=== PATIENT | female | born 1960 | race Caucasian/White ===

== ENCOUNTER 2017-07-25 17:18 | Emergency (ER) | payer MEDICAID, MEDICARE, OTHER ==
[2017-07-25] MEDS ORDERED: Ondansetron 4 MG/2 ML SDV IVPUSH ONE (18:28)
[2017-07-25] MEDS ORDERED: Morphine 10 MG/ML Syringe IVPUSH ONE ×2 (18:29→19:36)
[2017-07-25] MEDS ORDERED: Sodium Chloride 0.9% 1,000 ML IV SCH (19:00)
--- NOTE | 2017-07-25 20:30 | EDM.PDOC ---
ED HPI GENERAL MEDICAL PROBLEM - General Chief Complaint: Abdominal Pain Stated Complaint: PANCREATIS ATTACK Time Seen by Provider: 07/25/17 18:12 Source of Information: Reports: Patient History Limitations: Reports: No Limitations - History of Present Illness INITIAL COMMENTS - FREE TEXT/NARRATIVE: This lady comes in with symptoms of recurrent pancreatitis. She says she has chronic pancreatitis but she had a sore throat a few days ago couldn't swallow and was coughing and so forth but now since I believe last night her upper abdominal pain has gotten a lot worse. She's not taking any kind of pain medications. She says she is certain this is pancreatitis could she's had many times in the past. Abdomen Pain Score (Numeric/FACES): 9 - Related Data Allergies Allergy/AdvReac Type Severity Reaction Status Date / Time acetaminophen Allergy Severe Hives Verified 07/25/17 17:36 [From Darvocet-N 100] codeine Allergy Severe Hives Verified 07/25/17 17:36 Iodinated Contrast- Oral and Allergy Severe Cannot Verified 07/25/17 17:36 IV Dye Remember [Iodinated Contrast Media - IV Dye] iodine Allergy Severe Hives Verified 07/25/17 17:36 propoxyphene napsylate Allergy Severe Hives Verified 07/25/17 17:36 [From Darvocet-N 100] Sulfa (Sulfonamide Allergy Severe Hives Verified 07/25/17 17:36 Antibiotics) sulfamethoxazole Allergy Severe Rash Verified 07/25/17 17:36 [From Bactrim] tramadol Allergy Severe Anxiety Verified 07/25/17 17:36 trimethoprim [From Bactrim] Allergy Severe Rash Verified 07/25/17 17:36 Home Meds: Home Meds Amitriptyline [Elavil] 150 mg PO BEDTIME PRN 06/30/13 [History] Metoprolol Tartrate [Lopressor] 25 mg PO BID 06/30/13 [History] cycloSPORINE [Restasis] 1 each EYEBOTH BID 12/30/14 [History] Potassium Chloride [Klor-Con M20] 20 meq PO DAILY #30 tab.er 11/15/16 [Rx] metFORMIN [Glucophage] 500 mg PO BIDMEALS #60 tablet 11/15/16 [Rx] Past Medical History Cardiovascular History: Reports: Hypertension Gastrointestinal History: Reports: Cholelithiasis, 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: Endocrine/Metabolic History: Reports: Diabetes, Type II - Past Surgical History HEENT Surgical History: Reports: Tonsillectomy GI Surgical History: Reports: Appendectomy, Cholecystectomy, ERCP Female Surgical History: Reports: Section Musculoskeletal Surgical History: Reports: Arthroscopic Knee, Hip Replacement Social & Family History - Tobacco Use Smoking Status *Q: Current Every Day Smoker Years of Tobacco use: 40 Packs/Tins Daily: 0.3 Used Tobacco, but Quit: No Second Hand Smoke Exposure: No - Caffeine Use Caffeine Use: Reports: None - Alcohol Use Days Per Week of Alcohol Use: 0 Number of Drinks Per Day: 1 Total Drinks Per Week: 0 - Recreational Drug Use Recreational Drug Use: No ED ROS GENERAL - Review of Systems Review Of Systems: ROS reveals no pertinent complaints other than HPI. ED EXAM, GI/ABD - Physical Exam Exam: See Below Exam Limited By: No Limitations General Appearance: Alert, WD/WN, Moderate Distress Eyes: Bilateral: Normal Appearance Throat/Mouth: Normal Oropharynx Neck: Supple Respiratory/Chest: Lungs Clear Cardiovascular: Normal Peripheral Pulses, Regular Rate, Rhythm GI/Abdominal Exam: Soft, Other (Upper abdominal tenderness) Back Exam: Normal Inspection Extremities: Normal Inspection Neurological: Alert, Oriented Psychiatric: Normal Affect Skin Exam: Warm, Dry Course - Vital Signs Last Recorded V/S: Last Vital Signs Temp 37.1 C 07/25/17 17:33 Pulse 109 H 07/25/17 19:53 Resp 18 07/25/17 19:53 BP 176/110 H 07/25/17 18:32 Pulse Ox 97 07/25/17 19:53 - Orders/Labs/Meds Orders: Active Orders 24 hr Category Date Time Status Sodium Chloride 0.9% [Normal Saline] 1,000 ml Med 07/25/17 19:00 Active IV ASDIRECTED Medication Orders Sodium Chloride (Normal Saline) 1,000 mls @ 999 mls/hr IV ASDIRECTED GILLIAN Last Admin: 07/25/17 18:54 Dose: 999 mls/hr Labs: Laboratory Tests 07/25/17 07/25/17 07/25/17 Range/Units 18:48 18:48 18:48 WBC 6.4 (4.5-11.0) K/uL RBC 3.93 (3.30-5.50) M/uL Hgb 13.7 D (12.0-15.0) g/dL Hct 38.9 (36.0-48.0) % MCV 99 H (80-98) fL MCH 35 H (27-31) pg MCHC 35 (32-36) % Plt Count 218 (150-400) K/uL Neut % (Auto) 58 (36-66) % Lymph % (Auto) 25 (24-44) % [place] % (Auto) 16 H (2-6) % Eos % (Auto) 0 L (2-4) % Baso % (Auto) 1 (0-1) % Sodium 135 L (140-148) mmol/L Potassium 3.7 (3.6-5.2) mmol/L Chloride 97 L (100-108) mmol/L Carbon Dioxide 28 (21-32) mmol/L Anion Gap 13.7 (5.0-14.0) mmol/L BUN 13 (7-18) mg/dL Creatinine 0.8 (0.6-1.0) mg/dL Est Cr Clr Drug Dosing 70.66 mL/min Estimated GFR (MDRD) > 60 (>60) Glucose 128 H (74-106) mg/dL Calcium 9.8 (8.5-10.1) mg/dL Total Bilirubin 1.3 H (0.2-1.0) mg/dL AST 108 H D (15-37) U/L ALT 82 H (12-78) U/L Alkaline Phosphatase 99 (46-116) U/L Total Protein 7.1 (6.4-8.2) g/dL Albumin 3.8 (3.4-5.0) g/dL Globulin 3.3 (2.3-3.5) g/dL Albumin/Globulin Ratio 1.2 (1.2-2.2) Amylase 120 H (25-115) U/L Lipase 1064 H (73-393) U/L Meds: Medications Generic Name Dose Route Start Last Admin Trade Name Freq PRN Reason Stop Dose Admin Sodium Chloride 1,000 mls @ 999 mls/hr 07/25/17 19:00 07/25/17 18:54 Normal Saline IV 999 mls/hr ASDIRECTED GILLIAN Administration Discontinued Medications Generic Name Dose Route Start Last Admin Trade Name Freq PRN Reason Stop Dose Admin Morphine Sulfate 7 mg 07/25/17 18:29 07/25/17 18:57 Morphine IVPUSH 07/25/17 18:30 7 mg ONETIME ONE Administration Morphine Sulfate 8 mg 07/25/17 19:36 07/25/17 19:47 Morphine IVPUSH 07/25/17 19:37 8 mg ONETIME ONE Administration Ondansetron HCl 4 mg 07/25/17 18:28 07/25/17 18:55 Zofran IVPUSH 07/25/17 18:29 4 mg ONETIME ONE Administration - Re-Assessments/Exams Free Text/Narrative Re-Assessment/Exam: 07/25/17 20:27 This patient received morphine 7 mg Zofran 4 mg IV they gave partial relief of the pain she also received 1 L IV normal saline over one hour. She was rechecked she was still having pain since she was given 8 mg of morphine and that gave fairly good pain relief. She is able to drink water so she feels like she can go home Departure - Departure Time of Disposition: 20:27 Disposition: Home, Self-Care 01 Condition: Fair Clinical Impression: 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, acute - Discharge Information Referrals: Obi Alexandre MD [Primary Care Provider] - Additional Instructions: Strict clear liquid diet for the next 2 days then begin advancing to solid foods very gradually. Start with things like rice bananas and so forth. Clear liquids should not contain any thing like broth which might have protein in it which would stimulate the pancreas Take the pain medicine Percocet 5/325, #20 tablets, one or 2 every 4 hours as needed for pain. This medication can cause sedation and impair driving. It's also habit-forming. See your Dr. rodarte - My Orders Last 24 Hours: My Active Orders 07/25/17 19:00 Sodium Chloride 0.9% [Normal Saline] 1,000 ml IV ASDIRECTED - Assessment/Plan Last 24 Hours: My Active Orders 07/25/17 19:00 Sodium Chloride 0.9% [Normal Saline] 1,000 ml IV ASDIRECTED
[2017-07-25 20:55] VITALS: BP 167/65
== END 2017-07-25 21:00 | disposition home or self-care (01) ==
LOC: JP.ED 17:18
DX: K85.90 Acute pancreatitis without necrosis or infection, unspecified (principal); E11.9 Type 2 diabetes mellitus without complications; I10 Essential (primary) hypertension; Z79.84 Long term (current) use of oral hypoglycemic drugs; F17.210 Nicotine dependence, cigarettes, uncomplicated; Z79.899 Other long term (current) drug therapy; Z88.5 Allergy status to narcotic agent; Z88.2 Allergy status to sulfonamides; Z91.041 Radiographic dye allergy status; Z88.6 Allergy status to analgesic agent; Z88.8 Allergy status to other drugs, medicaments and biological substances
CPT/HCPCS: 36415; 80053; 82150; 83690; 85025; 96361; 96374; 96375; 96376; 99284; J1642; J2270; J2405; J7040

== ENCOUNTER 2017-08-04 18:38 | Emergency (ER) | payer MEDICAID, MEDICARE, OTHER ==
[2017-08-04] MEDS ORDERED: Ondansetron 4 MG/2 ML SDV IVPUSH ONE (19:45)
[2017-08-04] MEDS ORDERED: Lactated Ringers 1,000 ML IV SCH (19:45)
[2017-08-04] MEDS ORDERED: HYDROmorphone 1 MG/ML Syringe IVPUSH ONE (19:45)
--- NOTE | 2017-08-04 19:49 | EDM.PDOC ---
ED HPI GENERAL MEDICAL PROBLEM - General Chief Complaint: Abdominal Pain Stated Complaint: CHRONIC PANCREATITIS Time Seen by Provider: 08/04/17 19:06 Source of Information: Reports: Patient, Old Records, RN Notes Reviewed History Limitations: Reports: No Limitations - History of Present Illness INITIAL COMMENTS - FREE TEXT/NARRATIVE: 57-year-old female presents emergency department day complaint of abdominal pain she has a known history of chronic pancreatitis however she has been fairly stable over the last year she had a flare up of her pancreatitis about one week ago she relates the trigger might be related to an upper respiratory tract infection. The other thing of concern is she has had weight gain over the last 9 months was 104 pounds now she's up to 154 pounds denies any fevers shortness of breath or chest pain epigastric Pain Score (Numeric/FACES): 9 - Related Data Allergies Allergy/AdvReac Type Severity Reaction Status Date / Time acetaminophen Allergy Severe Hives Verified 08/04/17 19:27 [From Darvocet-N 100] codeine Allergy Severe Hives Verified 08/04/17 19:27 Iodinated Contrast- Oral and Allergy Severe Cannot Verified 08/04/17 19:27 IV Dye Remember [Iodinated Contrast Media - IV Dye] iodine Allergy Severe Hives Verified 08/04/17 19:27 propoxyphene napsylate Allergy Severe Hives Verified 08/04/17 19:27 [From Darvocet-N 100] Sulfa (Sulfonamide Allergy Severe Hives Verified 08/04/17 19:27 Antibiotics) sulfamethoxazole Allergy Severe Rash Verified 08/04/17 19:27 [From Bactrim] tramadol Allergy Severe Anxiety Verified 08/04/17 19:27 trimethoprim [From Bactrim] Allergy Severe Rash Verified 08/04/17 19:27 Home Meds: Home Meds Amitriptyline [Elavil] 150 mg PO BEDTIME PRN 06/30/13 [History] Metoprolol Tartrate [Lopressor] 25 mg PO BID 06/30/13 [History] cycloSPORINE [Restasis] 1 each EYEBOTH BID 12/30/14 [History] Potassium Chloride [Klor-Con M20] 20 meq PO DAILY #30 tab.er 11/15/16 [Rx] metFORMIN [Glucophage] 500 mg PO BIDMEALS #60 tablet 11/15/16 [Rx] Past Medical History Cardiovascular History: Reports: Hypertension Gastrointestinal History: Reports: Cholelithiasis, 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: Endocrine/Metabolic History: Reports: Diabetes, Type II - Past Surgical History HEENT Surgical History: Reports: Tonsillectomy GI Surgical History: Reports: Appendectomy, Cholecystectomy, ERCP Female Surgical History: Reports: Section Musculoskeletal Surgical History: Reports: Arthroscopic Knee, Hip Replacement Social & Family History - Tobacco Use Smoking Status *Q: Current Every Day Smoker Years of Tobacco use: 42 Packs/Tins Daily: 0.2 Used Tobacco, but Quit: No Second Hand Smoke Exposure: No - Caffeine Use Caffeine Use: Reports: None - Alcohol Use Days Per Week of Alcohol Use: 0 Number of Drinks Per Day: 1 Total Drinks Per Week: 0 - Recreational Drug Use Recreational Drug Use: No ED ROS GENERAL - Review of Systems Review Of Systems: See Below Constitutional: Reports: Weight Gain HEENT: Reports: No Symptoms Respiratory: Reports: No Symptoms Cardiovascular: Reports: No Symptoms GI/Abdominal: Reports: Abdominal Pain, Flatus, Nausea, Vomiting. Denies: Constipation, Diarrhea : Reports: No Symptoms Musculoskeletal: Reports: No Symptoms Skin: Reports: No Symptoms Neurological: Reports: No Symptoms ED EXAM, GI/ABD - Physical Exam Exam: See Below Text/Narrative:: General: Female in moderate discomfort secondary to abdominal pain, alert and oriented x3 HEENT: head is atraumatic normocephalic, eyes pupils equal round reactive to light, sclera clear no conjunctivitis appreciated. Ears tympanic membranes clear and mendez landmarks and light reflex are present bilaterally canals are clear. Nose no septal deviation, nares are clear, no blood present. Mouth mucosa is moist and pink no erythema or exudate noted in soft palate, tongue is midline uvula is midline, dentition is intact. Neck: Supple no thyromegaly no tracheal deviation. Nodes: Cervical nodes subclavicular nodes nontender no palpable lymphadenopathy noted. Lungs: clear to auscultation bilaterally with symmetrical respirations, no adventitious noise appreciated. CV: Regular rate and rhythm S1 and S2 appreciated no murmurs rubs or gallops noted. Abdomen: Soft, tender to palpation left upper quadrant, no palpable masses or organomegaly appreciated, no distention positive for guarding bowel sounds are present,. Neuro: Cranial nerves II through XII grossly intact Skin: Warm and dry, intact Extremities: No lower extremity edema appreciated, Course - Vital Signs Last Recorded V/S: Last Vital Signs Temp 97.5 F 08/04/17 21:42 Pulse 91 08/04/17 21:42 Resp 18 08/04/17 21:42 BP 164/116 H 08/04/17 21:42 Pulse Ox 94 L 08/04/17 21:42 - Orders/Labs/Meds Orders: Active Orders 24 hr Category Date Time Status EKG Documentation Completion [RC] ASDIRECTED Care 08/04/17 20:20 Active Abdomen Pelvis wo Cont [CT] Urgent Exams 08/04/17 19:44 Taken Chest 2V [CR] Urgent Exams 08/04/17 20:40 Taken Heparin Sodium/D5W [Heparin 25,000 Units in D5W 500 ML] Med 08/04/17 21:45 Ordered 25,000 units in 500 ml IV TITRATE Lactated Ringers [Ringers, Lactated] 1,000 ml Med 08/04/17 19:45 Active IV ASDIRECTED EKG 12 Lead [EK] Stat Ther 08/04/17 20:19 Ordered Medication Orders Lactated Ringer's (Ringers, Lactated) 1,000 mls @ 999 mls/hr IV ASDIRECTED GILLIAN Last Admin: 08/04/17 20:05 Dose: 999 mls/hr Heparin Sodium/Dextrose (Heparin 25,000 Units In D5w 500 Ml) 25,000 units in 500 mls @ 0 mls/hr IV TITRATE GILLIAN; 12 UNITS/KG/HR PRN Reason: Protocol Labs: Laboratory Tests 08/04/17 08/04/17 08/04/17 Range/Units 19:44 19:44 19:44 WBC 5.8 (4.5-11.0) K/uL RBC 4.12 (3.30-5.50) M/uL Hgb 14.4 (12.0-15.0) g/dL Hct 40.3 (36.0-48.0) % MCV 98 (80-98) fL MCH 35 H (27-31) pg MCHC 36 (32-36) % Plt Count 227 (150-400) K/uL Neut % (Auto) 55 (36-66) % Lymph % (Auto) 31 (24-44) % [place] % (Auto) 13 H (2-6) % Eos % (Auto) 0 L (2-4) % Baso % (Auto) 1 (0-1) % PT 10.3 (9.5-12.0) sec INR 0.96 (0.80-1.20) Sodium 136 L (140-148) mmol/L Potassium 3.5 L (3.6-5.2) mmol/L Chloride 98 L (100-108) mmol/L Carbon Dioxide 25 (21-32) mmol/L Anion Gap 16.5 H (5.0-14.0) mmol/L BUN 10 (7-18) mg/dL Creatinine 0.9 (0.6-1.0) mg/dL Est Cr Clr Drug Dosing 62.80 mL/min Estimated GFR (MDRD) > 60 (>60) Glucose 156 H (74-106) mg/dL Lactic Acid (0.4-2.0) mmol/L Calcium 9.3 (8.5-10.1) mg/dL Total Bilirubin 1.5 H (0.2-1.0) mg/dL AST 95 H (15-37) U/L ALT 44 (12-78) U/L Alkaline Phosphatase 104 (46-116) U/L Troponin I 0.124 H* (0.000-0.056) ng/mL Total Protein 7.4 (6.4-8.2) g/dL Albumin 3.9 (3.4-5.0) g/dL Globulin 3.5 (2.3-3.5) g/dL Albumin/Globulin Ratio 1.1 L (1.2-2.2) Lipase 83 (73-393) U/L Urine Color Urine Appearance Urine pH (4.5-8.0) Ur Specific [place] (1.008-1.030) Urine Protein (NEGATIVE) mg/dL Urine Glucose (UA) (NEGATIVE) mg/dL Urine Ketones (NEGATIVE) mg/dL Urine Occult Blood (NEGATIVE) Urine Nitrite (NEGATIVE) Urine Bilirubin (NEGATIVE) Urine Urobilinogen (NORMAL) mg/dL Ur Leukocyte Esterase (NEGATIVE) Urine RBC (0-5) Urine WBC (0-5) Ur Epithelial Cells Amorphous Sediment Urine Bacteria Urine Mucus Urine Opiates Screen (NEGATIVE) Ur Oxycodone Screen (NEGATIVE) Urine Methadone Screen (NEGATIVE) Ur Propoxyphene Screen (NEGATIVE) Ur Barbiturates Screen (NEGATIVE) Ur Tricyclics Screen (NEGATIVE) Ur Phencyclidine Scrn (NEGATIVE) Ur Amphetamine Screen (NEGATIVE) U Methamphetamines Scrn (NEGATIVE) Urine MDMA Screen (NEGATIVE) U Benzodiazepines Scrn (NEGATIVE) U Cocaine Metab Screen (NEGATIVE) U Marijuana (THC) Screen (NEGATIVE) 08/04/17 08/04/17 08/04/17 Range/Units 19:44 20:57 20:57 WBC (4.5-11.0) K/uL RBC (3.30-5.50) M/uL Hgb (12.0-15.0) g/dL Hct (36.0-48.0) % MCV (80-98) fL MCH (27-31) pg MCHC (32-36) % Plt Count (150-400) K/uL Neut % (Auto) (36-66) % Lymph % (Auto) (24-44) % [place] % (Auto) (2-6) % Eos % (Auto) (2-4) % Baso % (Auto) (0-1) % PT (9.5-12.0) sec INR (0.80-1.20) Sodium (140-148) mmol/L Potassium (3.6-5.2) mmol/L Chloride (100-108) mmol/L Carbon Dioxide (21-32) mmol/L Anion Gap (5.0-14.0) mmol/L BUN (7-18) mg/dL Creatinine (0.6-1.0) mg/dL Est Cr Clr Drug Dosing mL/min Estimated GFR (MDRD) (>60) Glucose (74-106) mg/dL Lactic Acid 2.6 H (0.4-2.0) mmol/L Calcium (8.5-10.1) mg/dL Total Bilirubin (0.2-1.0) mg/dL AST (15-37) U/L ALT (12-78) U/L Alkaline Phosphatase (46-116) U/L Troponin I (0.000-0.056) ng/mL Total Protein (6.4-8.2) g/dL Albumin (3.4-5.0) g/dL Globulin (2.3-3.5) g/dL Albumin/Globulin Ratio (1.2-2.2) Lipase (73-393) U/L Urine Color Yellow Urine Appearance Clear Urine pH 7.0 (4.5-8.0) Ur Specific [place] 1.010 (1.008-1.030) Urine Protein Negative (NEGATIVE) mg/dL Urine Glucose (UA) 100 H (NEGATIVE) mg/dL Urine Ketones 15 H (NEGATIVE) mg/dL Urine Occult Blood Negative (NEGATIVE) Urine Nitrite Negative (NEGATIVE) Urine Bilirubin Negative (NEGATIVE) Urine Urobilinogen Normal (NORMAL) mg/dL Ur Leukocyte Esterase Negative (NEGATIVE) Urine RBC 0-5 (0-5) Urine WBC 0-5 (0-5) Ur Epithelial Cells Moderate Amorphous Sediment Few Urine Bacteria Rare Urine Mucus Few Urine Opiates Screen Positive H (NEGATIVE) Ur Oxycodone Screen Negative (NEGATIVE) Urine Methadone Screen Negative (NEGATIVE) Ur Propoxyphene Screen Negative (NEGATIVE) Ur Barbiturates Screen Negative (NEGATIVE) Ur Tricyclics Screen Positive H (NEGATIVE) Ur Phencyclidine Scrn Negative (NEGATIVE) Ur Amphetamine Screen Negative (NEGATIVE) U Methamphetamines Scrn Negative (NEGATIVE) Urine MDMA Screen Negative (NEGATIVE) U Benzodiazepines Scrn Negative (NEGATIVE) U Cocaine Metab Screen Negative (NEGATIVE) U Marijuana (THC) Screen Negative (NEGATIVE) Meds: Medications Generic Name Dose Route Start Last Admin Trade Name Freq PRN Reason Stop Dose Admin Lactated Ringer's 1,000 mls @ 999 mls/hr 08/04/17 19:45 08/04/17 20:05 Ringers, Lactated IV 999 mls/hr ASDIRECTED GILLIAN Administration Heparin Sodium/Dextrose 25,000 units in 500 mls @ 0 mls/hr 08/04/17 21:45 Heparin 25,000 Units In D5w 500 Ml IV TITRATE GILLIAN Protocol 12 UNITS/KG/HR Discontinued Medications Generic Name Dose Route Start Last Admin Trade Name Freq PRN Reason Stop Dose Admin Aspirin 324 mg 08/04/17 20:22 08/04/17 20:28 Aspirin PO 08/04/17 20:23 324 mg ONETIME ONE Administration Clopidogrel Bisulfate 300 mg 08/04/17 21:44 Plavix PO 08/04/17 21:45 ONETIME ONE Heparin Sodium (Porcine) 4,000 units 08/04/17 21:44 08/04/17 21:51 Heparin Sodium IVPUSH 08/04/17 21:45 4,000 units ONETIME ONE Administration Hydromorphone HCl 1 mg 08/04/17 19:45 08/04/17 20:05 Dilaudid IVPUSH 08/04/17 19:46 1 mg ONETIME ONE Administration Metoprolol Tartrate 25 mg 08/04/17 21:00 08/04/17 21:14 Lopressor PO 08/04/17 21:01 25 mg ONETIME ONE Administration Morphine Sulfate 4 mg 08/04/17 20:59 08/04/17 21:14 Morphine IVPUSH 08/04/17 21:00 4 mg ONETIME ONE Administration Nitroglycerin 0.4 mg 08/04/17 21:36 08/04/17 21:40 Nitrostat SL 08/04/17 21:37 0.4 mg ONETIME ONE Administration Ondansetron HCl 4 mg 08/04/17 19:45 08/04/17 20:05 Zofran IVPUSH 08/04/17 19:46 4 mg ONETIME ONE Administration Departure - Departure Time of Disposition: 21:56 Disposition: DC/Tfer to Acute Hospital 02 Condition: Fair Clinical Impression: Elevated troponin I measurement - Discharge Information Referrals: Obi Alexandre MD [Primary Care Provider] - Forms: ED Department Discharge - My Orders Last 24 Hours: My Active Orders 08/04/17 19:44 Abdomen Pelvis wo Cont [CT] Urgent 08/04/17 19:45 Lactated Ringers [Ringers, Lactated] 1,000 ml IV ASDIRECTED 08/04/17 20:19 EKG 12 Lead [EK] Stat 08/04/17 20:20 EKG Documentation Completion [RC] ASDIRECTED 08/04/17 20:40 Chest 2V [CR] Urgent 08/04/17 21:45 Heparin Sodium/D5W [Heparin 25,000 Units in D5W 500 ML] 25,000 units in 500 ml IV TITRATE - Assessment/Plan Last 24 Hours: My Active Orders 08/04/17 19:44 Abdomen Pelvis wo Cont [CT] Urgent 08/04/17 19:45 Lactated Ringers [Ringers, Lactated] 1,000 ml IV ASDIRECTED 08/04/17 20:19 EKG 12 Lead [EK] Stat 08/04/17 20:20 EKG Documentation Completion [RC] ASDIRECTED 08/04/17 20:40 Chest 2V [CR] Urgent 08/04/17 21:45 Heparin Sodium/D5W [Heparin 25,000 Units in D5W 500 ML] 25,000 units in 500 ml IV TITRATE Plan: Assessment Acuity = acute Site and laterality = elevated troponin complicated in a patient with history of chronic pancreatitis and diabetes mellitus type 2 Etiology = unclear etiology Manifestations = epigastric pain Location of injury = Home Lab values = CBC within normal limits INR within normal limits potassium low at 3.5 consistent with hypokalemia lactic acid elevated at 2.6 consistent lactic acidosis glucose elevated at 156 consistent hyperglycemia total bilirubin elevated 1.5 consistent hyperbilirubinemia AST elevated at 95 consistent elevated liver enzymes troponin elevated at 0.124 concern for non-ST elevation myocardial infarction urinalysis reveals 100 of glucose consistent glucose urea and 15 ketones consistent ketonuria chest x-ray shows no acute process official read radiology is pending urine drug screen positive for opiates and tricyclics , CT scan of the abdomen also unremarkable EKG demonstrates a sinus rhythm there is no ST elevations or depressions is no axis deviations Q waves are present in the V1 V2 V3 T-wave inversions present in V1 and V2 V3 this is different from prior EKG in October 2016 Plan Called and discussed case with Dr. 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
[2017-08-04] MEDS ORDERED: Aspirin 81 MG Tab.Chew PO ONE (20:22)
[2017-08-04] MEDS ORDERED: Morphine 4 MG/ML Syringe IVPUSH ONE (20:59)
[2017-08-04] MEDS ORDERED: Metoprolol Tartrate 25 MG Tab PO ONE (21:00)
[2017-08-04] MEDS ORDERED: Nitroglycerin 0.4 MG Tab.SL SL ONE (21:36)
[2017-08-04] MEDS ORDERED: Clopidogrel 75 MG Tab PO ONE (21:44)
[2017-08-04] MEDS ORDERED: Heparin Sodium 5,000 Units/ML Vial IVPUSH ONE (21:44)
[2017-08-04] MEDS ORDERED: Heparin Sodium/D5W 25,000 UNITS/500 ML BAG IV SCH (21:45)
[2017-08-04] MEDS ORDERED: LORazepam 1 MG Tab PO ONE (22:00)
[2017-08-04 22:09] VITALS: BP 153/102
--- NOTE | 2017-08-06 09:46 | CR ---
Two-view chest Comparison: August 2011. There is an [id number] catheter on the right. The finding is unchanged. There are no infiltrates o r effusions. The heart and vascular structures are unremarkable. Impression: 1. Stable exam. No acute findings.
== END 2017-08-04 22:30 ==
LOC: JP.ED 18:38
DX: R79.89 Other specified abnormal findings of blood chemistry (principal); K86.1 Other chronic pancreatitis; E11.9 Type 2 diabetes mellitus without complications; I10 Essential (primary) hypertension; Z90.49 Acquired absence of other specified parts of digestive tract; Z79.84 Long term (current) use of oral hypoglycemic drugs; Z79.899 Other long term (current) drug therapy; Z88.2 Allergy status to sulfonamides; Z88.6 Allergy status to analgesic agent; Z88.1 Allergy status to other antibiotic agents; Z88.5 Allergy status to narcotic agent; Z88.8 Allergy status to other drugs, medicaments and biological substances; Z91.041 Radiographic dye allergy status
CPT/HCPCS: 36415; 71020; 74176; 80053; 80305; 81001; 83605; 83690; 84484; 85025; 85610; 93005; 93010; 96361; 96374; 96375; 99284; 99285; A9270; C1751; J1170; J1644; J2270; J2405; J7120

== ENCOUNTER 2018-07-10 04:34 | Inpatient (IN) | payer MEDICARE ==
[2018-07-10] MEDS ORDERED: Ondansetron 4 MG/2 ML SDV IVPUSH ONE (05:17)
[2018-07-10] MEDS ORDERED: HYDROmorphone 0.5 MG/0.5 ML Syringe IVPUSH ONE ×3 (05:17→08:37)
--- NOTE | 2018-07-10 05:24 | EDM.PDOC ---
ED HPI GENERAL MEDICAL PROBLEM - General Chief Complaint: Gastrointestinal Problem Stated Complaint: ABD PAIN Time Seen by Provider: 07/10/18 05:20 Source of Information: Reports: Patient History Limitations: Reports: No Limitations - History of Present Illness INITIAL COMMENTS - FREE TEXT/NARRATIVE: pt arrived with upper abdomanal pain. She did vomit twice prior to arrival. 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 ) Duration: Hour(s): Location: Reports: Abdomen Associated Symptoms: Reports: Nausea/Vomiting Treatments LAB AID: Reports: Other (see below) Other Treatments LAB AID: Unknown Abdomen Pain Score (Numeric/FACES): 8 - Related Data Allergies Allergy/AdvReac Type Severity Reaction Status Date / Time acetaminophen Allergy Severe Hives Verified 07/10/18 04:57 [From Darvocet-N 100] codeine Allergy Severe Hives Verified 07/10/18 04:57 Iodinated Contrast- Oral and Allergy Severe Cannot Verified 07/10/18 04:57 IV Dye Remember [Iodinated Contrast Media - IV Dye] iodine Allergy Severe Hives Verified 07/10/18 04:57 propoxyphene napsylate Allergy Severe Hives Verified 07/10/18 04:57 [From Darvocet-N 100] Sulfa (Sulfonamide Allergy Severe Hives Verified 07/10/18 04:57 Antibiotics) sulfamethoxazole Allergy Severe Rash Verified 07/10/18 04:57 [From Bactrim] tramadol Allergy Severe Anxiety Verified 07/10/18 04:57 trimethoprim [From Bactrim] Allergy Severe Rash Verified 07/10/18 04:57 Home Meds: Home Meds Amitriptyline [Elavil] 150 mg PO BEDTIME PRN 06/30/13 [History] Metoprolol Tartrate [Lopressor] 25 mg PO BID 06/30/13 [History] cycloSPORINE [Restasis] 1 each EYEBOTH BID 12/30/14 [History] metFORMIN [Glucophage] 500 mg PO BIDMEALS #60 tablet 11/15/16 [Rx] Carvedilol [Coreg] 3.125 mg PO BID 06/20/18 [History] Losartan [Cozaar] 25 mg PO BEDTIME 06/20/18 [History] Cyanocobalamin (Vitamin B-12) [Vitamin B-12] 1,000 mcg SL DAILY 07/10/18 [ History] Folic Acid 1 mg PO DAILY 07/10/18 [History] Magnesium Oxide [Magnesium] 400 mg PO DAILY 07/10/18 [History] Thiamine HCl [Vitamin B-1] 100 mg PO DAILY 07/10/18 [History] Past Medical History Cardiovascular History: Reports: High Cholesterol, Hypertension Gastrointestinal History: Reports: Cholelithiasis, 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 History: Reports: Psychiatric History: Reports: Addiction, Anxiety, Depression Endocrine/Metabolic History: Reports: Diabetes, Type II - Past Surgical History HEENT Surgical History: Reports: Tonsillectomy GI Surgical History: Reports: Appendectomy, Cholecystectomy, ERCP Female Surgical History: Reports: Section Musculoskeletal Surgical History: Reports: Arthroscopic Knee, Hip Replacement Social & Family History - Tobacco Use Smoking Status *Q: Current Every Day Smoker Years of Tobacco use: 40 Packs/Tins Daily: 1 Used Tobacco, but Quit: No Second Hand Smoke Exposure: Yes - Caffeine Use Caffeine Use: Reports: Coffee - Alcohol Use Days Per Week of Alcohol Use: 5 Number of Drinks Per Day: 2 Total Drinks Per Week: 10 - Recreational Drug Use Recreational Drug Use: No ED ROS GENERAL - Review of Systems Constitutional: Reports: No Symptoms HEENT: Reports: No Symptoms Respiratory: Reports: No Symptoms Cardiovascular: Reports: No Symptoms Endocrine: Reports: No Symptoms GI/Abdominal: Reports: Abdominal Pain, Nausea, Vomiting, Other (pt has been vomiting tonight and has severe upper abdomanal pain. She was recently at detox and she has been drinking again. She admits to 2 drinks tonight. ) : Reports: No Symptoms Musculoskeletal: Reports: No Symptoms Skin: Reports: No Symptoms ED EXAM, GI/ABD - Physical Exam Exam: See Below Text/Narrative:: Pt arrived with pain in her upper abdoman. She has been voniting. She was at detox about 2 weeks ago. She admits to 2 drinks tonight. Her friend states she has been drinking on a regular basis. Exam Limited By: No Limitations General Appearance: Alert, Anxious, Moderate Distress Ears: Normal TMs Nose: Normal Inspection Throat/Mouth: Normal Inspection Head: Atraumatic Neck: Normal Inspection Respiratory/Chest: No Respiratory Distress Cardiovascular: Regular Rate, Rhythm GI/Abdominal Exam: Other (Pt is tender in the upper abdoman. No masses are palbable. a) (Female) Exam: Deferred Rectal (Female) Exam: Deferred Extremities: Normal Inspection Neurological: Alert, Oriented, Normal Cognition Psychiatric: Normal Affect Course - Vital Signs Last Recorded V/S: Last Vital Signs Temp 35.9 C 07/10/18 06:30 Pulse 93 07/10/18 06:30 Resp 14 07/10/18 06:30 BP 142/87 H 07/10/18 06:30 Pulse Ox 98 07/10/18 06:30 - Orders/Labs/Meds Orders: Active Orders 24 hr Category Date Time Status Abdomen Series w Chest 1V [CR] Urgent Exams 07/10/18 05:17 Taken FOLIC ACID [CHEM] Stat Lab 07/10/18 06:11 Ordered VITAMIN B12 [CHEM] Stat Lab 07/10/18 06:12 Ordered Sodium Chloride 0.9% [Normal Saline] 1,000 ml Med 07/10/18 05:30 Active IV ASDIRECTED Sodium Chloride 0.9% [Normal Saline] 1,000 ml Med 07/10/18 06:00 Active IV ASDIRECTED Medication Orders Sodium Chloride (Normal Saline) 1,000 mls @ 999 mls/hr IV ASDIRECTED GILLIAN Last Admin: 07/10/18 05:38 Dose: 999 mls/hr Sodium Chloride (Normal Saline) 1,000 mls @ 999 mls/hr IV ASDIRECTED [facility] Labs: Laboratory Tests 07/10/18 07/10/18 07/10/18 Range/Units 05:15 05:15 05:15 WBC 4.5 (4.5-11.0) K/uL RBC 3.41 (3.30-5.50) M/uL Hgb 11.9 L (12.0-15.0) g/dL Hct 34.5 L (36.0-48.0) % MCV 101 H (80-98) fL MCH 35 H (27-31) pg MCHC 35 (32-36) % Plt Count 179 (150-400) K/uL Neut % (Auto) 55 (36-66) % Lymph % (Auto) 32 (24-44) % [place] % (Auto) 9 H (2-6) % Eos % (Auto) 4 (2-4) % Baso % (Auto) 1 (0-1) % Sodium 133 L (140-148) mmol/L Potassium 4.3 (3.6-5.2) mmol/L Chloride 96 L (100-108) mmol/L Carbon Dioxide 19 L (21-32) mmol/L Anion Gap 22.3 H (5.0-14.0) mmol/L BUN 11 (7-18) mg/dL Creatinine 0.9 (0.6-1.0) mg/dL Est Cr Clr Drug Dosing 62.06 mL/min Estimated GFR (MDRD) > 60 (>60) Glucose 81 (74-106) mg/dL Calcium 9.8 (8.5-10.1) mg/dL Total Bilirubin 0.9 (0.2-1.0) mg/dL AST 127 H (15-37) U/L ALT 55 (12-78) U/L Alkaline Phosphatase 131 H (46-116) U/L Total Protein 6.4 (6.4-8.2) g/dL Albumin 3.0 L (3.4-5.0) g/dL Globulin 3.4 (2.3-3.5) g/dL Albumin/Globulin Ratio 0.9 L (1.2-2.2) Amylase (25-115) U/L Lipase 1231 H (73-393) U/L Ethyl Alcohol mg/dL 07/10/18 07/10/18 Range/Units 05:15 05:15 WBC (4.5-11.0) K/uL RBC (3.30-5.50) M/uL Hgb (12.0-15.0) g/dL Hct (36.0-48.0) % MCV (80-98) fL MCH (27-31) pg MCHC (32-36) % Plt Count (150-400) K/uL Neut % (Auto) (36-66) % Lymph % (Auto) (24-44) % [place] % (Auto) (2-6) % Eos % (Auto) (2-4) % Baso % (Auto) (0-1) % Sodium (140-148) mmol/L Potassium (3.6-5.2) mmol/L Chloride (100-108) mmol/L Carbon Dioxide (21-32) mmol/L Anion Gap (5.0-14.0) mmol/L BUN (7-18) mg/dL Creatinine (0.6-1.0) mg/dL Est Cr Clr Drug Dosing mL/min Estimated GFR (MDRD) (>60) Glucose (74-106) mg/dL Calcium (8.5-10.1) mg/dL Total Bilirubin (0.2-1.0) mg/dL AST (15-37) U/L ALT (12-78) U/L Alkaline Phosphatase (46-116) U/L Total Protein (6.4-8.2) g/dL Albumin (3.4-5.0) g/dL Globulin (2.3-3.5) g/dL Albumin/Globulin Ratio (1.2-2.2) Amylase 68 (25-115) U/L Lipase (73-393) U/L Ethyl Alcohol < 3 mg/dL Meds: Medications Generic Name Dose Route Start Last Admin Trade Name Freq PRN Reason Stop Dose Admin Sodium Chloride 1,000 mls @ 999 mls/hr 07/10/18 05:30 07/10/18 05:38 Normal Saline IV 999 mls/hr ASDIRECTED GILLIAN Administration Sodium Chloride 1,000 mls @ 999 mls/hr 07/10/18 06:00 Normal Saline IV ASDIRECTED GILLIAN Discontinued Medications Generic Name Dose Route Start Last Admin Trade Name Freq PRN Reason Stop Dose Admin Hydromorphone HCl 0.5 mg 07/10/18 05:17 07/10/18 05:42 Dilaudid IVPUSH 07/10/18 05:18 0.5 mg ONETIME ONE Administration Hydromorphone HCl 0.5 mg 07/10/18 06:42 Dilaudid IVPUSH 07/10/18 06:43 ONETIME ONE Ondansetron HCl 4 mg 07/10/18 05:17 07/10/18 05:39 Zofran IVPUSH 07/10/18 05:18 4 mg ONETIME ONE Administration Departure - Departure Disposition: Admitted As Inpatient 67 Condition: Fair Clinical Impression: 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, Dehydration - Discharge Information Referrals: Obi Alexandre MD [Primary Care Provider] - Forms: ED Department Discharge Care Plan Goals: admit to Dr dougherty - My Orders Last 24 Hours: My Active Orders 07/10/18 05:17 Abdomen Series w Chest 1V [CR] Urgent 07/10/18 05:30 Sodium Chloride 0.9% [Normal Saline] 1,000 ml IV ASDIRECTED 07/10/18 06:00 Sodium Chloride 0.9% [Normal Saline] 1,000 ml IV ASDIRECTED 07/10/18 06:11 FOLIC ACID [CHEM] Stat 07/10/18 06:12 VITAMIN B12 [CHEM] Stat - Assessment/Plan Last 24 Hours: My Active Orders 07/10/18 05:17 Abdomen Series w Chest 1V [CR] Urgent 07/10/18 05:30 Sodium Chloride 0.9% [Normal Saline] 1,000 ml IV ASDIRECTED 07/10/18 06:00 Sodium Chloride 0.9% [Normal Saline] 1,000 ml IV ASDIRECTED 07/10/18 06:11 FOLIC ACID [CHEM] Stat 07/10/18 06:12 VITAMIN B12 [CHEM] Stat
[2018-07-10] MEDS ORDERED: Sodium Chloride 0.9% 1,000 ML IV SCH ×2 (05:30→06:00)
--- NOTE | 2018-07-10 08:53 | PCM.HP ---
H&P History of Present Illness - General Date of Service: 07/10/18 Admit Problem/Dx: Admission Diagnosis/Problem Admission Diagnosis/Problem 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 Source of Information: Patient, Family, Provider History Limitations: Reports: No Limitations - History of Present Illness Initial Comments - Free Text/Narative: Flavio presents to the ER with acute severe sharp epigastric abdominal pain that started around 10 PM last night. pain has been constant with some mild waxing and waning. she did not try anything at home to make her pain better. Pain has been helped some by using hydromorphone in the emergency room. She has had several episodes of vomiting and has nausea as well. She has not had any fevers. She has been having normal bowel movements. She does admit to drinking a couple of drinks last night and her daughter reports that she's been drinking somewhat regularly for the past couple of weeks. She does not have any urinary symptoms such as dysuria. She does not feel short of breath. No report of headache, myalgias or arthralgias. Workup in the emergency room revealed an elevated lipase level but workup has otherwise been fairly reassuring. She will be admitted for management of acute recurrent pancreatitis. Abdomen Pain Score (Numeric/FACES): 8 - Related Data Allergies/Adverse Reactions: Allergies Allergy/AdvReac Type Severity Reaction Status Date / Time acetaminophen Allergy Severe Hives Verified 07/10/18 04:57 [From Darvocet-N 100] codeine Allergy Severe Hives Verified 07/10/18 04:57 Iodinated Contrast- Oral and Allergy Severe Cannot Verified 07/10/18 04:57 IV Dye Remember [Iodinated Contrast Media - IV Dye] iodine Allergy Severe Hives Verified 07/10/18 04:57 propoxyphene napsylate Allergy Severe Hives Verified 07/10/18 04:57 [From Darvocet-N 100] Sulfa (Sulfonamide Allergy Severe Hives Verified 07/10/18 04:57 Antibiotics) sulfamethoxazole Allergy Severe Rash Verified 07/10/18 04:57 [From Bactrim] tramadol Allergy Severe Anxiety Verified 07/10/18 04:57 trimethoprim [From Bactrim] Allergy Severe Rash Verified 07/10/18 04:57 Home Medications: Home Meds Amitriptyline [Elavil] 150 mg PO BEDTIME PRN 06/30/13 [History] Metoprolol Tartrate [Lopressor] 25 mg PO BID 06/30/13 [History] cycloSPORINE [Restasis] 1 each EYEBOTH BID 12/30/14 [History] metFORMIN [Glucophage] 500 mg PO BIDMEALS #60 tablet 11/15/16 [Rx] Carvedilol [Coreg] 3.125 mg PO BID 06/20/18 [History] Losartan [Cozaar] 25 mg PO BEDTIME 06/20/18 [History] Cyanocobalamin (Vitamin B-12) [Vitamin B-12] 1,000 mcg SL DAILY 07/10/18 [ History] Folic Acid 1 mg PO DAILY 07/10/18 [History] Magnesium Oxide [Magnesium] 400 mg PO DAILY 07/10/18 [History] Thiamine HCl [Vitamin B-1] 100 mg PO DAILY 07/10/18 [History] Past Medical History Cardiovascular History: Reports: High Cholesterol, Hypertension Gastrointestinal History: Reports: Cholelithiasis, 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: Psychiatric History: Reports: Addiction, Anxiety, Depression Other Psychiatric History: Lizeth Lopez Endocrine/Metabolic History: Reports: Diabetes, Type II - Infectious Disease History Infectious Disease History: Reports: Chicken Pox - Past Surgical History HEENT Surgical History: Reports: Tonsillectomy GI Surgical History: Reports: Appendectomy, Cholecystectomy, ERCP Female Surgical History: Reports: Section Musculoskeletal Surgical History: Reports: Arthroscopic Knee, Hip Replacement Social & Family History - Family History Family Medical History: Noncontributory - Tobacco Use Smoking Status *Q: Current Every Day Smoker Years of Tobacco use: 40 Packs/Tins Daily: 1 Used Tobacco, but Quit: No Second Hand Smoke Exposure: Yes - Caffeine Use Caffeine Use: Reports: Coffee - Alcohol Use Days Per Week of Alcohol Use: 5 Number of Drinks Per Day: 2 Total Drinks Per Week: 10 - Recreational Drug Use Recreational Drug Use: No H&P Review of Systems - Review of Systems: Review Of Systems: See Below Free Text/Narrative: A complete 12 point review of systems was obtained. Pertinent positives and negatives are noted in the history of present illness. All other systems were reviewed and were negative except as noted. Exam - Exam Exam: See Below - Vital Signs Vital Signs: Last Vital Signs Temp 35.9 C 07/10/18 06:30 Pulse 92 07/10/18 06:50 Resp 16 07/10/18 06:50 BP 140/81 07/10/18 06:50 Pulse Ox 96 07/10/18 06:50 Weight: 69.2 kg - Exam Quality Assessment: No: Supplemental Oxygen General: Alert, Oriented, Cooperative, Mild Distress HEENT: Pupils Equal, Other (stye right eye). No: Mucosa Moist & [place] (dry), Scleral Icterus Neck: Supple, Trachea Midline. No: Lymphadenopathy Lungs: Clear to Auscultation, Normal Respiratory Effort Cardiovascular: Regular Rate, Regular Rhythm. No: Systolic Murmur GI/Abdominal Exam: Distended, Guarding, Tender, Abnormal Bowel Sounds ( hypoactive) Extremities: No Pedal Edema. No: Increased Warmth Skin: Warm, Dry Neuro Extensive - Mental Status: Alert, Oriented x3, Nl Response to Commands Neuro Extensive - Motor, Sensory, Reflexes: CN II-XII Intact. No: Dysarthria, Abnormal Motor, Tremor Psychiatric: Alert, Normal Affect - Patient Data Lab Results Last 24 hrs: Laboratory Results - last 24 hr 07/10/18 07/10/18 07/10/18 Range/Units 05:15 05:15 05:15 WBC 4.5 (4.5-11.0) K/uL RBC 3.41 (3.30-5.50) M/uL Hgb 11.9 L (12.0-15.0) g/dL Hct 34.5 L (36.0-48.0) % MCV 101 H (80-98) fL MCH 35 H (27-31) pg MCHC 35 (32-36) % Plt Count 179 (150-400) K/uL Neut % (Auto) 55 (36-66) % Lymph % (Auto) 32 (24-44) % [place] % (Auto) 9 H (2-6) % Eos % (Auto) 4 (2-4) % Baso % (Auto) 1 (0-1) % Sodium 133 L (140-148) mmol/L Potassium 4.3 (3.6-5.2) mmol/L Chloride 96 L (100-108) mmol/L Carbon Dioxide 19 L (21-32) mmol/L Anion Gap 22.3 H (5.0-14.0) mmol/L BUN 11 (7-18) mg/dL Creatinine 0.9 (0.6-1.0) mg/dL Est Cr Clr Drug Dosing 62.06 mL/min Estimated GFR (MDRD) > 60 (>60) Glucose 81 (74-106) mg/dL Calcium 9.8 (8.5-10.1) mg/dL Total Bilirubin 0.9 (0.2-1.0) mg/dL AST 127 H (15-37) U/L ALT 55 (12-78) U/L Alkaline Phosphatase 131 H (46-116) U/L Total Protein 6.4 (6.4-8.2) g/dL Albumin 3.0 L (3.4-5.0) g/dL Globulin 3.4 (2.3-3.5) g/dL Albumin/Globulin Ratio 0.9 L (1.2-2.2) Amylase (25-115) U/L Lipase 1231 H (73-393) U/L Vitamin B12 (193-986) pg/ml Folate (8.6-58.9) ng/ml Ethyl Alcohol mg/dL 07/10/18 07/10/18 07/10/18 Range/Units 05:15 05:15 06:11 WBC (4.5-11.0) K/uL RBC (3.30-5.50) M/uL Hgb (12.0-15.0) g/dL Hct (36.0-48.0) % MCV (80-98) fL MCH (27-31) pg MCHC (32-36) % Plt Count (150-400) K/uL Neut % (Auto) (36-66) % Lymph % (Auto) (24-44) % [place] % (Auto) (2-6) % Eos % (Auto) (2-4) % Baso % (Auto) (0-1) % Sodium (140-148) mmol/L Potassium (3.6-5.2) mmol/L Chloride (100-108) mmol/L Carbon Dioxide (21-32) mmol/L Anion Gap (5.0-14.0) mmol/L BUN (7-18) mg/dL Creatinine (0.6-1.0) mg/dL Est Cr Clr Drug Dosing mL/min Estimated GFR (MDRD) (>60) Glucose (74-106) mg/dL Calcium (8.5-10.1) mg/dL Total Bilirubin (0.2-1.0) mg/dL AST (15-37) U/L ALT (12-78) U/L Alkaline Phosphatase (46-116) U/L Total Protein (6.4-8.2) g/dL Albumin (3.4-5.0) g/dL Globulin (2.3-3.5) g/dL Albumin/Globulin Ratio (1.2-2.2) Amylase 68 (25-115) U/L Lipase (73-393) U/L Vitamin B12 (193-986) pg/ml Folate 11.3 (8.6-58.9) ng/ml Ethyl Alcohol < 3 mg/dL 07/10/18 Range/Units 06:12 WBC (4.5-11.0) K/uL RBC (3.30-5.50) M/uL Hgb (12.0-15.0) g/dL Hct (36.0-48.0) % MCV (80-98) fL MCH (27-31) pg MCHC (32-36) % Plt Count (150-400) K/uL Neut % (Auto) (36-66) % Lymph % (Auto) (24-44) % [place] % (Auto) (2-6) % Eos % (Auto) (2-4) % Baso % (Auto) (0-1) % Sodium (140-148) mmol/L Potassium (3.6-5.2) mmol/L Chloride (100-108) mmol/L Carbon Dioxide (21-32) mmol/L Anion Gap (5.0-14.0) mmol/L BUN (7-18) mg/dL Creatinine (0.6-1.0) mg/dL Est Cr Clr Drug Dosing mL/min Estimated GFR (MDRD) (>60) Glucose (74-106) mg/dL Calcium (8.5-10.1) mg/dL Total Bilirubin (0.2-1.0) mg/dL AST (15-37) U/L ALT (12-78) U/L Alkaline Phosphatase (46-116) U/L Total Protein (6.4-8.2) g/dL Albumin (3.4-5.0) g/dL Globulin (2.3-3.5) g/dL Albumin/Globulin Ratio (1.2-2.2) Amylase (25-115) U/L Lipase (73-393) U/L Vitamin B12 2854 H (193-986) pg/ml Folate (8.6-58.9) ng/ml Ethyl Alcohol mg/dL Result Diagrams: 07/10/18 05:15 07/10/18 05:15 Imaging Impressions Last 24 hrs: AXR - images personally reviewed - no evidence for obstruction *Q Meaningful Use (ADM) - VTE Risk Assess *Q Each Risk Factor Represents 1 Point: Age 41 - 59 years Total Score 1 Point Risk Factors: 1 Each Risk Factor Represents 2 Points: None Total Score 2 Point Risk Factors: 0 Each Risk Factor Represents 3 Points: None Total Score 3 Point Risk Factors: 0 Each Risk Factor Represents 5 Points: None Total Score 5 Point Risk Factors: 0 Venous Thromboembolism Risk Factor Score *Q: 1 - Problem List (1) 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 SNOMED Code(s): 64727877 ICD Code: K85.90 - ACUTE PANCREATITIS WITHOUT NECROSIS OR INFECTION, UNSP Status: Acute Current Visit: Yes Qualifiers: Chronicity: acute 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 type: alcohol induced Acute pancreatitis complication: no infection or necrosis Qualified Code(s): K85.20 - Alcohol induced acute pancreatitis without necrosis or infection (2) ETOH abuse SNOMED Code(s): 11194780 ICD Code: F10.10 - ALCOHOL ABUSE, UNCOMPLICATED Status: Acute Current Visit: No Problem List Initiated/Reviewed/Updated: Yes Orders Last 24hrs: Active Orders 24 hr Category Date Time Status Patient Status Manage Transfer [TRANSFER] Routine ADT 07/10/18 08:38 Ordered Abdomen Series w Chest 1V [CR] Urgent Exams 07/10/18 05:17 Taken Sodium Chloride 0.9% [Normal Saline] 1,000 ml Med 07/10/18 05:30 Active IV ASDIRECTED Sodium Chloride 0.9% [Normal Saline] 1,000 ml Med 07/10/18 06:00 Active IV ASDIRECTED Sodium Chloride 0.9% [Normal Saline] 1,000 ml Med 07/10/18 08:45 Active IV ASDIRECTED Resuscitation Status Routine Resus Stat 07/10/18 08:41 Ordered Medication Orders Sodium Chloride (Normal Saline) 1,000 mls @ 999 mls/hr IV ASDIRECTED [facility] Last Admin: 07/10/18 05:38 Dose: 999 mls/hr Sodium Chloride (Normal Saline) 1,000 mls @ 999 mls/hr IV ASDIRECTED [facility] Last Admin: 07/10/18 06:57 Dose: 999 mls/hr Sodium Chloride (Normal Saline) 1,000 mls @ 150 mls/hr IV ASDIRECTED [facility] Assessment/Plan Comment:: ASSESSMENT AND PLAN - Acute recurrent pancreatitis - likely secondary to alcohol with report of recent and consistent use. Patient has a history of similar dating back many years. she is hemodynamically stable but in a fair amount of pain. lipase is not significantly elevated but this could be falsely reassuring given her history of chronic pancreatitis. 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 she had been sober for a good time prior to that. - Encourage cessation and offer support as able - supplement thiamine and folate Maintenance issues - - DVT prophylaxis - SCD's - GI prophylaxis - PPI - Nutrition - NPO - Colon catheter - not indicated CODE STATUS - FULL Admission justification - This patient will be admitted for inpatient services and is medically appropriate meeting medical necessity for inpatient admission as outlined in my documentation. I reasonably expect the patient will require inpatient services that span a period time over 2 midnights. I reasonably expect this patient to be discharged or transferred within 96 hours [facility] Disposition - I would anticipate discharge to home after the hospital stay Primary care physician - Dr. Baldomero Guerrero M.D.
[2018-07-10] MEDS: Sodium Chloride 0.9% 1,000 ML IV SCH ×3 (09:03→23:27)
--- NOTE | 2018-07-10 09:04 | CR ---
Abdomen Series w Chest 1V CLINICAL HISTORY: Pain FINDINGS: Lung ordoñez are clear. Patient has an [id number] catheter from the right subclavian appr [facility]. No free air is identified. Intestinal gas pattern is nonspecific. There are surgical clips in t he right upper quadrant IMPRESSION: Nonacute intestinal gas pattern Lungs are clear
[2018-07-10] MEDS ORDERED: Acetaminophen 325 MG Tab PO PRN (09:16)
[2018-07-10] MEDS ORDERED: Naloxone 0.4 MG/ML SDV IVPUSH PRN (09:16)
[2018-07-10] MEDS ORDERED: Magnesium Hydroxide 400 MG/5 ML Susp 30 ML Cup PO PRN (09:16)
[2018-07-10] MEDS ORDERED: Ondansetron 4 MG/2 ML SDV IV PRN (09:16)
[2018-07-10] MEDS ORDERED: Ondansetron 4 MG Tab.DIS PO PRN (09:16)
[2018-07-10] MEDS ORDERED: Polyethylene Glycol 3350 Powder 17 GM Packet PO PRN (09:16)
[2018-07-10] MEDS: HYDROmorphone/Normal Saline 15 MG/30 ML PCA IV PRN ×2 (09:52→16:45)
[2018-07-10] MEDS ORDERED: Ketorolac 30 MG/ML SDV IVPUSH PRN (10:00)
[2018-07-10] MEDS ORDERED: Metoprolol Tartrate 50 MG Tab PO SCH (10:00)
[2018-07-10] MEDS ORDERED: LORazepam 2 MG/ML SDV IVPUSH PRN (10:00)
[2018-07-10] MEDS: Thiamine 100 MG Tab PO SCH (12:16)
[2018-07-10] MEDS: Cyanocobalamin (Vitamin B12) 1,000 MCG Tab SL SCH (12:16)
[2018-07-10] MEDS: cycloSPORINE Ophth Drops U/D Box of 30 EYEBOTH SCH ×2 (12:16→21:18)
[2018-07-10] MEDS: Pantoprazole 40 MG Vial IVPUSH SCH (12:16)
[2018-07-10] MEDS: Folic Acid 1 MG Tab PO SCH (12:16)
[2018-07-10] MEDS: metFORMIN 500 MG Tab PO SCH (17:29)
[2018-07-10] MEDS: Losartan 50 MG Tab PO SCH (20:28)
[2018-07-10] MEDS: Metoprolol Tartrate 25 MG Tab PO SCH (20:29)
[2018-07-10] MEDS ORDERED: Amitriptyline 25 MG Tab ONE (21:01)
[2018-07-11] MEDS: metFORMIN 500 MG Tab PO SCH ×2 (08:26→16:00)
[2018-07-11] MEDS: Metoprolol Tartrate 25 MG Tab PO SCH ×2 (10:59→20:04)
[2018-07-11] MEDS: Folic Acid 1 MG Tab PO SCH (11:00)
[2018-07-11] MEDS: Cyanocobalamin (Vitamin B12) 1,000 MCG Tab SL SCH (11:00)
[2018-07-11] MEDS: Pantoprazole 40 MG Vial IVPUSH SCH (11:00)
[2018-07-11] MEDS: Thiamine 100 MG Tab PO SCH (11:00)
[2018-07-11] MEDS: cycloSPORINE Ophth Drops U/D Box of 30 EYEBOTH SCH ×2 (11:00→20:34)
--- NOTE | 2018-07-11 11:28 | PCM.PN ---
- General Info Date of Service: 07/11/18 Subjective Update: There were no acute events overnight. Her pain is a little better today but she still having a fair amount of epigastric pain. She is thirsty and requesting something to drink. She has not had any fevers. No nausea this morning. No bowel movement for far. Lipase level is now normal. Functional Status: Reports: Pain Controlled - Review of Systems General: Denies: Fever Gastrointestinal: Reports: Abdominal Pain - Patient Data Vitals - Most Recent: Last Vital Signs Temp 35.7 C 07/11/18 08:21 Pulse 82 07/11/18 10:59 Resp 16 07/11/18 08:21 BP 124/70 07/11/18 10:59 Pulse Ox 98 07/11/18 08:21 Weight - Most Recent: 69.2 kg I&O - Last 24 Hours: Intake & Output 07/10/18 07/11/18 07/11/18 22:59 06:59 14:59 Intake Total 1100 1827 Balance 1100 1827 Lab Results Last 24 Hours: Laboratory Results - last 24 hr 07/11/18 07/11/18 07/11/18 Range/Units 04:50 04:50 08:38 WBC 2.5 L (4.5-11.0) K/uL RBC 2.75 L (3.30-5.50) M/uL Hgb 9.4 L D (12.0-15.0) g/dL Hct 28.7 L (36.0-48.0) % MCV 104 H (80-98) fL MCH 34 H (27-31) pg MCHC 33 (32-36) % Plt Count 110 L (150-400) K/uL Sodium 136 L (140-148) mmol/L Potassium 4.3 (3.6-5.2) mmol/L Chloride 104 (100-108) mmol/L Carbon Dioxide 26 (21-32) mmol/L Anion Gap 10.3 (5.0-14.0) mmol/L BUN 11 (7-18) mg/dL Creatinine 0.7 (0.6-1.0) mg/dL Est Cr Clr Drug Dosing 79.79 mL/min Estimated GFR (MDRD) > 60 (>60) Glucose 79 (74-106) mg/dL Calcium 8.2 L D (8.5-10.1) mg/dL Lipase 287 (73-393) U/L Med Orders - Current: Current Medications Acetaminophen (Tylenol) 650 mg PO Q4H PRN PRN Reason: Pain (Mild 1-3)/fever Amitriptyline HCl (Elavil) 150 mg PO BEDTIME PRN PRN Reason: Insomnia Last Admin: 07/10/18 21:20 Dose: 100 mg Cyanocobalamin (Vitamin B12) 1,000 mcg SL DAILY [facility] Last Admin: 07/11/18 11:00 Dose: 1,000 mcg Cyclosporine (Restasis) 0 each EYEBOTH BID [facility] Last Admin: 07/11/18 11:00 Dose: 1 drop Folic Acid (Folic Acid) 1 mg PO DAILY [facility] Last Admin: 07/11/18 11:00 Dose: 1 mg Hydromorphone HCl (Dilaudid Ostrich Farm Worker 15 Mg In Ns 30 Ml) 0 mg IV ASDIRECTED PRN; Protocol PRN Reason: Pain Sodium Chloride (Normal Saline) 1,000 mls @ 150 mls/hr IV ASDIRECTED [facility] Last Admin: 07/10/18 23:27 Dose: 150 mls/hr Ketorolac Tromethamine (Toradol) 30 mg IVPUSH Q6H PRN PRN Reason: Pain Stop: 07/15/18 10:01 Lorazepam (Ativan) 0.5 - 1 mg IVPUSH Q4H PRN PRN Reason: Nausea/Vomiting Losartan Potassium (Cozaar) 25 mg PO BEDTIME [facility] Last Admin: 07/10/18 20:28 Dose: 25 mg Magnesium Hydroxide (Milk Of Magnesia) 30 ml PO Q12H PRN PRN Reason: Constipation Metformin HCl (Glucophage) 500 mg PO BIDMEALS [facility] Last Admin: 07/11/18 08:26 Dose: 500 mg Metoprolol Tartrate (Lopressor) 25 mg PO BID [facility] Last Admin: 07/11/18 10:59 Dose: 25 mg Naloxone HCl (Narcan) 0.4 mg IVPUSH Q2M PRN PRN Reason: Respiratory Distress Ondansetron HCl (Zofran Odt) 4 mg PO Q6H PRN PRN Reason: Nausea able to take PO Ondansetron HCl (Zofran) 4 mg IV Q6H PRN PRN Reason: Nausea/Vomiting Pantoprazole Sodium (Protonix Iv) 40 mg IVPUSH Q24H [facility] Last Admin: 07/11/18 11:00 Dose: 40 mg Polyethylene Glycol (Miralax) 17 gm PO DAILY PRN PRN Reason: Constipation Senna/Docusate Sodium (Senna Plus) 1 tab PO BID PRN PRN Reason: Constipation Thiamine HCl (Vitamin B-1) 100 mg PO DAILY [facility] Last Admin: 07/11/18 11:00 Dose: 100 mg Discontinued Medications Amitriptyline HCl (Elavil) Confirm Administered Dose 50 mg .ROUTE .STK-MED ONE Stop: 07/10/18 21:02 Last Admin: 07/10/18 21:21 Dose: 50 mg Hydromorphone HCl (Dilaudid) 0.5 mg IVPUSH ONETIME ONE Stop: 07/10/18 05:18 Last Admin: 07/10/18 05:42 Dose: 0.5 mg Hydromorphone HCl (Dilaudid) 0.5 mg IVPUSH ONETIME ONE Stop: 07/10/18 06:43 Last Admin: 07/10/18 06:57 Dose: 0.5 mg Hydromorphone HCl (Dilaudid) 0.5 mg IVPUSH ONETIME ONE Stop: 07/10/18 08:38 Last Admin: 07/10/18 09:03 Dose: 0.5 mg Sodium Chloride (Normal Saline) 1,000 mls @ 999 mls/hr IV ASDIRECTED [facility] Last Admin: 07/10/18 05:38 Dose: 999 mls/hr Sodium Chloride (Normal Saline) 1,000 mls @ 999 mls/hr IV ASDIRECTED [facility] Last Admin: 07/10/18 06:57 Dose: 999 mls/hr Metoprolol Tartrate (Lopressor) 25 mg PO BID [facility] Ondansetron HCl (Zofran) 4 mg IVPUSH ONETIME ONE Stop: 07/10/18 05:18 Last Admin: 07/10/18 05:39 Dose: 4 mg - Exam Quality Assessment: No: Supplemental Oxygen General: Alert, Oriented, Cooperative, No Acute Distress Lungs: Normal Respiratory Effort GI/Abdominal Exam: Distended (mild), Guarding, Tender Extremities: No Pedal Edema Skin: Warm, Dry Psy/Mental Status: Alert, Normal Affect - Problem List & Annotations (1) 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 SNOMED Code(s): 18533077 Code(s): K85.90 - ACUTE PANCREATITIS WITHOUT NECROSIS OR INFECTION, UNSP Status: Acute Current Visit: Yes Qualifiers: Chronicity: acute 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 type: alcohol induced Acute pancreatitis complication: no infection or necrosis Qualified Code(s): K85.20 - Alcohol induced acute pancreatitis without necrosis or infection (2) ETOH abuse SNOMED Code(s): 86497560 Code(s): F10.10 - ALCOHOL ABUSE, UNCOMPLICATED Status: Acute Current Visit: No - Problem List Review Problem List Initiated/Reviewed/Updated: Yes - My Orders Last 24 Hours: My Active Orders 07/10/18 17:00 metFORMIN [Glucophage] 500 mg PO BIDMEALS 07/10/18 21:00 Losartan [Cozaar] 25 mg PO BEDTIME 07/11/18 11:27 GLYCOSYLATED HEMOGLOBIN,HGBA1C [CHEM] Routine 07/11/18 Lunch Nothing per Oral Now Diet [DIET] 07/12/18 05:00 CBC W/O DIFF,HEMOGRAM [HEME] Timed (1) COMPREHENSIVE METABOLIC PN,CMP [CHEM] Timed LIPASE [CHEM] Timed - Plan Plan:: ASSESSMENT AND PLAN - Acute recurrent pancreatitis - likely secondary to alcohol with report of recent and consistent use. Lipase normal but still having a fair amount of pain. Hopefully we can transition to oral pain medications and trial clear liquids in the morning. -Trial of ice chips - hydromorphone VASCULAR NEUROLOGIST - IV fluids - anti-nausea medication - repeat lipase in the morning Alcohol dependence and abuse - recently spent time in detox for alcohol dependence with the hope of cessation but she has returned to regular use. she had been sober for a good time prior to that. - Encourage cessation and offer support as able - supplement thiamine and folate Maintenance issues - - DVT prophylaxis - SCD's - GI prophylaxis - PPI - Nutrition - NPO Disposition - I would anticipate discharge to home after the hospital stay Edilberto Guerrero M.D.
[2018-07-11] MEDS: Sodium Chloride 0.9% 1,000 ML IV SCH ×2 (12:30→20:39)
[2018-07-11] MEDS ORDERED: Diazepam 5 MG Tab PO PRN (16:52)
[2018-07-11] MEDS: Losartan 50 MG Tab PO SCH (20:00)
[2018-07-12] MEDS: Sodium Chloride 0.9% 1,000 ML IV SCH ×2 (04:16→11:07)
[2018-07-12] MEDS: metFORMIN 500 MG Tab PO SCH (08:39)
[2018-07-12] MEDS: Thiamine 100 MG Tab PO SCH (08:46)
[2018-07-12] MEDS: Cyanocobalamin (Vitamin B12) 1,000 MCG Tab SL SCH (08:46)
[2018-07-12] MEDS: Metoprolol Tartrate 25 MG Tab PO SCH ×2 (08:46→21:57)
[2018-07-12] MEDS: Folic Acid 1 MG Tab PO SCH (08:46)
[2018-07-12] MEDS: cycloSPORINE Ophth Drops U/D Box of 30 EYEBOTH SCH ×2 (08:49→21:56)
[2018-07-12] MEDS: Pantoprazole 40 MG Vial IVPUSH SCH (10:01)
--- NOTE | 2018-07-12 11:34 | PCM.PN ---
- General Info Date of Service: 07/12/18 Functional Status: Reports: Pain Controlled - Review of Systems Gastrointestinal: Reports: Abdominal Pain Systems Review Comment:: There were no acute events overnight. She reports ongoing epigastric abdominal pain and bloating but thinks they are little better today. She does not have any nausea. She is hungry and is wondering if she can have at least something to drink. She has not had any fevers. Lipase level remains normal. - Patient Data Vitals - Most Recent: Last Vital Signs Temp 35.4 C 07/12/18 07:24 Pulse 84 07/12/18 08:46 Resp 18 07/12/18 02:49 BP 176/99 H 07/12/18 08:46 Pulse Ox 99 07/12/18 07:24 Weight - Most Recent: 69.2 kg I&O - Last 24 Hours: Intake & Output 07/11/18 07/12/18 07/12/18 22:59 06:59 14:59 Intake Total 1712 1627 Output Total 550 Balance 1712 1627 -550 Lab Results Last 24 Hours: Laboratory Results - last 24 hr 07/11/18 07/12/18 07/12/18 Range/Units 11:27 04:15 04:15 WBC 2.6 L (4.5-11.0) K/uL RBC 2.69 L (3.30-5.50) M/uL Hgb 9.2 L (12.0-15.0) g/dL Hct 28.5 L (36.0-48.0) % MCV 106 H (80-98) fL MCH 34 H (27-31) pg MCHC 32 (32-36) % Plt Count 96 L (150-400) K/uL Sodium 138 L (140-148) mmol/L Potassium 3.8 (3.6-5.2) mmol/L Chloride 104 (100-108) mmol/L Carbon Dioxide 23 (21-32) mmol/L Anion Gap 14.8 H (5.0-14.0) mmol/L BUN 7 (7-18) mg/dL Creatinine 0.7 (0.6-1.0) mg/dL Est Cr Clr Drug Dosing 79.66 mL/min Estimated GFR (MDRD) > 60 (>60) Glucose 78 (74-106) mg/dL Hemoglobin A1c 5.6 (4.5-6.2) % Calcium 7.9 L (8.5-10.1) mg/dL Total Bilirubin 0.5 (0.2-1.0) mg/dL AST 82 H (15-37) U/L ALT 36 (12-78) U/L Alkaline Phosphatase 93 (46-116) U/L Total Protein 5.1 L (6.4-8.2) g/dL Albumin 2.5 L (3.4-5.0) g/dL Globulin 2.6 (2.3-3.5) g/dL Albumin/Globulin Ratio 1.0 L (1.2-2.2) Lipase 148 (73-393) U/L Med Orders - Current: Current Medications Acetaminophen (Tylenol) 650 mg PO Q4H PRN PRN Reason: Pain (Mild 1-3)/fever Amitriptyline HCl (Elavil) 150 mg PO BEDTIME PRN PRN Reason: Insomnia Last Admin: 07/11/18 19:55 Dose: 150 mg Cyanocobalamin (Vitamin B12) 1,000 mcg SL DAILY [facility] Last Admin: 07/12/18 08:46 Dose: 1,000 mcg Cyclosporine (Restasis) 0 each EYEBOTH BID [facility] Last Admin: 07/12/18 08:49 Dose: 1 drop Diazepam (Valium.) 5 mg PO BEDTIME PRN PRN Reason: Sleep Last Admin: 07/11/18 19:55 Dose: 5 mg Folic Acid (Folic Acid) 1 mg PO DAILY [facility] Last Admin: 07/12/18 08:46 Dose: 1 mg Ketorolac Tromethamine (Toradol) 30 mg IVPUSH Q6H PRN PRN Reason: Pain Stop: 07/15/18 10:01 Lorazepam (Ativan) 0.5 - 1 mg IVPUSH Q4H PRN PRN Reason: Nausea/Vomiting Losartan Potassium (Cozaar) 25 mg PO BEDTIME [facility] Last Admin: 07/11/18 20:00 Dose: 25 mg Magnesium Hydroxide (Milk Of Magnesia) 30 ml PO Q12H PRN PRN Reason: Constipation Metoprolol Tartrate (Lopressor) 25 mg PO BID [facility] Last Admin: 07/12/18 08:46 Dose: 25 mg Naloxone HCl (Narcan) 0.4 mg IVPUSH Q2M PRN PRN Reason: Respiratory Distress Ondansetron HCl (Zofran Odt) 4 mg PO Q6H PRN PRN Reason: Nausea able to take PO Ondansetron HCl (Zofran) 4 mg IV Q6H PRN PRN Reason: Nausea/Vomiting Polyethylene Glycol (Miralax) 17 gm PO DAILY PRN PRN Reason: Constipation Senna/Docusate Sodium (Senna Plus) 1 tab PO BID PRN PRN Reason: Constipation Thiamine HCl (Vitamin B-1) 100 mg PO DAILY [facility] Last Admin: 07/12/18 08:46 Dose: 100 mg Discontinued Medications Amitriptyline HCl (Elavil) Confirm Administered Dose 50 mg .ROUTE .STK-MED ONE Stop: 07/10/18 21:02 Last Admin: 07/10/18 21:21 Dose: 50 mg Hydromorphone HCl (Dilaudid) 0.5 mg IVPUSH ONETIME ONE Stop: 07/10/18 05:18 Last Admin: 07/10/18 05:42 Dose: 0.5 mg Hydromorphone HCl (Dilaudid) 0.5 mg IVPUSH ONETIME ONE Stop: 07/10/18 06:43 Last Admin: 07/10/18 06:57 Dose: 0.5 mg Hydromorphone HCl (Dilaudid) 0.5 mg IVPUSH ONETIME ONE Stop: 07/10/18 08:38 Last Admin: 07/10/18 09:03 Dose: 0.5 mg Hydromorphone HCl (Dilaudid Acid Leveler 15 Mg In Ns 30 Ml) 0 mg IV ASDIRECTED PRN; Protocol PRN Reason: Pain Last Admin: 07/10/18 16:45 Dose: 0.5 mg Sodium Chloride (Normal Saline) 1,000 mls @ 999 mls/hr IV ASDIRECTED [facility] Last Admin: 07/10/18 05:38 Dose: 999 mls/hr Sodium Chloride (Normal Saline) 1,000 mls @ 999 mls/hr IV ASDIRECTED [facility] Last Admin: 07/10/18 06:57 Dose: 999 mls/hr Sodium Chloride (Normal Saline) 1,000 mls @ 150 mls/hr IV ASDIRECTED [facility] Last Admin: 07/12/18 11:07 Dose: 150 mls/hr Metformin HCl (Glucophage) 500 mg PO BIDMEALS [facility] Last Admin: 07/12/18 08:39 Dose: 500 mg Metoprolol Tartrate (Lopressor) 25 mg PO BID [facility] Ondansetron HCl (Zofran) 4 mg IVPUSH ONETIME ONE Stop: 07/10/18 05:18 Last Admin: 07/10/18 05:39 Dose: 4 mg Pantoprazole Sodium (Protonix Iv) 40 mg IVPUSH Q24H [facility] Last Admin: 07/12/18 10:01 Dose: 40 mg - Exam Quality Assessment: No: Supplemental Oxygen General: Alert, Oriented, Cooperative, No Acute Distress Lungs: Normal Respiratory Effort GI/Abdominal Exam: Soft, No Distention, Tender Extremities: No Pedal Edema Psy/Mental Status: Alert, Normal Affect - Problem List & Annotations (1) 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 SNOMED Code(s): 22354683 Code(s): K85.90 - ACUTE PANCREATITIS WITHOUT NECROSIS OR INFECTION, UNSP Status: Acute Current Visit: Yes Qualifiers: Chronicity: acute 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 type: alcohol induced Acute pancreatitis complication: no infection or necrosis Qualified Code(s): K85.20 - Alcohol induced acute pancreatitis without necrosis or infection (2) ETOH abuse SNOMED Code(s): 44626952 Code(s): F10.10 - ALCOHOL ABUSE, UNCOMPLICATED Status: Acute Current Visit: No - Problem List Review Problem List Initiated/Reviewed/Updated: Yes - My Orders Last 24 Hours: My Active Orders 07/11/18 16:52 diazePAM [Valium] 5 mg PO BEDTIME PRN 07/11/18 18:06 Communication Order [RC] ASDIRECTED 07/12/18 11:31 Morphine 15 - 30 mg PO Q4H PRN 07/12/18 Lunch Clear Liquid Diet [DIET] 07/13/18 07:30 Pantoprazole [ProTONIX] 40 mg PO ACBREAKFAST 07/13/18 12:00 Sodium Chloride 0.9% [Normal Saline] 1,000 ml IV ASDIRECTED - Plan Plan:: ASSESSMENT AND PLAN - Acute recurrent pancreatitis - likely secondary to alcohol with report of recent and consistent use. Pain has improved and she is interested in a transition to oral pain medications and if successful clear liquids. -Discontinue BUYER ASSISTANT, start oral morphine -Trial of clear liquids if pain still controlled after transition -Gentle IV fluids - anti-nausea medication Alcohol dependence and abuse - recently spent time in detox for alcohol dependence with the hope of cessation but she has returned to regular use. she had been sober for a good time prior to that. - Encourage cessation and offer support as able - supplement thiamine and folate Maintenance issues - - DVT prophylaxis - SCD's - GI prophylaxis - PPI - Nutrition - trial of clear liquids Disposition - I would anticipate discharge to home after the hospital stay Edilberto Guerrero M.D.
[2018-07-12] MEDS: Morphine 15 MG Tab PO PRN (13:00)
[2018-07-12] MEDS: Losartan 50 MG Tab PO SCH (21:59)
[2018-07-13] MEDS: Pantoprazole 40 MG Tab.CR PO SCH (07:25)
[2018-07-13] MEDS: cycloSPORINE Ophth Drops U/D Box of 30 EYEBOTH SCH ×2 (08:29→22:26)
[2018-07-13] MEDS: Cyanocobalamin (Vitamin B12) 1,000 MCG Tab SL SCH (08:29)
[2018-07-13] MEDS: Metoprolol Tartrate 25 MG Tab PO SCH ×2 (08:30→22:25)
[2018-07-13] MEDS: Thiamine 100 MG Tab PO SCH (08:30)
[2018-07-13] MEDS: Folic Acid 1 MG Tab PO SCH (08:30)
[2018-07-13] MEDS: Morphine 15 MG Tab PO PRN ×2 (08:33→12:56)
--- NOTE | 2018-07-13 09:23 | PCM.PN ---
- General Info Date of Service: 07/13/18 Subjective Update: There were no acute events overnight. The patient did lose her IV access overnight. There was some concern that the patient may be hallucinated but she later reported that she was joking around. She reports ongoing moderate abdominal pain but it is a little better today. No significant nausea. She is taking in clear liquids but not consuming much as far as quantity. She has not had any fevers. Functional Status: Reports: Pain Controlled, Tolerating Diet - Review of Systems Gastrointestinal: Reports: Abdominal Pain - Patient Data Vitals - Most Recent: Last Vital Signs Temp 36.1 C 07/13/18 07:20 Pulse 80 07/13/18 08:30 Resp 12 07/13/18 07:20 BP 156/81 H 07/13/18 08:30 Pulse Ox 90 L 07/13/18 07:20 Weight - Most Recent: 69.2 kg I&O - Last 24 Hours: Intake & Output 07/12/18 07/13/18 07/13/18 22:59 06:59 14:59 Intake Total 1334 277 Output Total 700 200 300 Balance 634 77 -300 Med Orders - Current: Current Medications Acetaminophen (Tylenol) 650 mg PO Q4H PRN PRN Reason: Pain (Mild 1-3)/fever Amitriptyline HCl (Elavil) 150 mg PO BEDTIME PRN PRN Reason: Insomnia Last Admin: 07/12/18 23:09 Dose: 150 mg Cyanocobalamin (Vitamin B12) 1,000 mcg SL DAILY [facility] Last Admin: 07/13/18 08:29 Dose: 1,000 mcg Cyclosporine (Restasis) 0 each EYEBOTH BID [facility] Last Admin: 07/13/18 08:29 Dose: 1 drop Diazepam (Valium.) 5 mg PO BEDTIME PRN PRN Reason: Sleep Last Admin: 07/11/18 19:55 Dose: 5 mg Folic Acid (Folic Acid) 1 mg PO DAILY [facility] Last Admin: 07/13/18 08:30 Dose: 1 mg Heparin Sodium (Porcine) (Heparin Lock Flush 100 Units/Ml) 500 units FLUSH ASDIRECTED PRN PRN Reason: port Last Admin: 07/13/18 04:54 Dose: 500 units Ketorolac Tromethamine (Toradol) 30 mg IVPUSH Q6H PRN PRN Reason: Pain Stop: 07/15/18 10:01 Lorazepam (Ativan) 0.5 - 1 mg IVPUSH Q4H PRN PRN Reason: Nausea/Vomiting Losartan Potassium (Cozaar) 25 mg PO BEDTIME [facility] Last Admin: 07/12/18 21:59 Dose: 25 mg Magnesium Hydroxide (Milk Of Magnesia) 30 ml PO Q12H PRN PRN Reason: Constipation Metoprolol Tartrate (Lopressor) 25 mg PO BID [facility] Last Admin: 07/13/18 08:30 Dose: 25 mg Morphine Sulfate (Morphine) 15 - 30 mg PO Q4H PRN PRN Reason: Pain Last Admin: 07/13/18 08:33 Dose: 15 mg Ondansetron HCl (Zofran Odt) 4 mg PO Q6H PRN PRN Reason: Nausea able to take PO Ondansetron HCl (Zofran) 4 mg IV Q6H PRN PRN Reason: Nausea/Vomiting Pantoprazole Sodium (Protonix) 40 mg PO ACBREAKFAST [facility] Last Admin: 07/13/18 07:25 Dose: 40 mg Polyethylene Glycol (Miralax) 17 gm PO DAILY PRN PRN Reason: Constipation Senna/Docusate Sodium (Senna Plus) 1 tab PO BID PRN PRN Reason: Constipation Thiamine HCl (Vitamin B-1) 100 mg PO DAILY [facility] Last Admin: 07/13/18 08:30 Dose: 100 mg Discontinued Medications Amitriptyline HCl (Elavil) Confirm Administered Dose 50 mg .ROUTE .STK-MED ONE Stop: 07/10/18 21:02 Last Admin: 07/10/18 21:21 Dose: 50 mg Heparin Sodium (Porcine) (Heparin Lock Flush 100 Units/Ml) Confirm Administered Dose 500 units .ROUTE .STK-MED ONE Stop: 07/13/18 00:44 Last Admin: 07/13/18 04:55 Dose: Not Given Hydromorphone HCl (Dilaudid) 0.5 mg IVPUSH ONETIME ONE Stop: 07/10/18 05:18 Last Admin: 07/10/18 05:42 Dose: 0.5 mg Hydromorphone HCl (Dilaudid) 0.5 mg IVPUSH ONETIME ONE Stop: 07/10/18 06:43 Last Admin: 07/10/18 06:57 Dose: 0.5 mg Hydromorphone HCl (Dilaudid) 0.5 mg IVPUSH ONETIME ONE Stop: 07/10/18 08:38 Last Admin: 07/10/18 09:03 Dose: 0.5 mg Hydromorphone HCl (Dilaudid Psychotherapist Counselor 15 Mg In Ns 30 Ml) 0 mg IV ASDIRECTED PRN; Protocol PRN Reason: Pain Last Admin: 07/10/18 16:45 Dose: 0.5 mg Sodium Chloride (Normal Saline) 1,000 mls @ 999 mls/hr IV ASDIRECTED [facility] Last Admin: 07/10/18 05:38 Dose: 999 mls/hr Sodium Chloride (Normal Saline) 1,000 mls @ 999 mls/hr IV ASDIRECTED [facility] Last Admin: 07/10/18 06:57 Dose: 999 mls/hr Sodium Chloride (Normal Saline) 1,000 mls @ 150 mls/hr IV ASDIRECTED [facility] Last Admin: 07/12/18 11:07 Dose: 150 mls/hr Sodium Chloride (Normal Saline) 1,000 mls @ 50 mls/hr IV ASDIRECTED [facility] Metformin HCl (Glucophage) 500 mg PO BIDMEALS [facility] Last Admin: 07/12/18 08:39 Dose: 500 mg Metoprolol Tartrate (Lopressor) 25 mg PO BID [facility] Naloxone HCl (Narcan) 0.4 mg IVPUSH Q2M PRN PRN Reason: Respiratory Distress Ondansetron HCl (Zofran) 4 mg IVPUSH ONETIME ONE Stop: 07/10/18 05:18 Last Admin: 07/10/18 05:39 Dose: 4 mg Pantoprazole Sodium (Protonix Iv) 40 mg IVPUSH Q24H [facility] Last Admin: 07/12/18 10:01 Dose: 40 mg - Exam Quality Assessment: No: Supplemental Oxygen General: Alert, Oriented, Cooperative, No Acute Distress Neck: Supple Lungs: Normal Respiratory Effort GI/Abdominal Exam: Soft, No Distention, Tender Extremities: No Pedal Edema Psy/Mental Status: Alert, Normal Affect - Problem List & Annotations (1) 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 SNOMED Code(s): 16513099 Code(s): K85.90 - ACUTE PANCREATITIS WITHOUT NECROSIS OR INFECTION, UNSP Status: Acute Current Visit: Yes Qualifiers: Chronicity: acute 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 type: alcohol induced Acute pancreatitis complication: no infection or necrosis Qualified Code(s): K85.20 - Alcohol induced acute pancreatitis without necrosis or infection (2) ETOH abuse SNOMED Code(s): 06026177 Code(s): F10.10 - ALCOHOL ABUSE, UNCOMPLICATED Status: Acute Current Visit: No - Problem List Review Problem List Initiated/Reviewed/Updated: Yes - My Orders Last 24 Hours: My Active Orders 07/12/18 11:31 Morphine 15 - 30 mg PO Q4H PRN 07/12/18 Lunch Clear Liquid Diet [DIET] 07/13/18 00:58 Heparin Sodium [Heparin Lock Flush 100 Units/ML] 500 units FLUSH ASDIRECTED PRN 07/13/18 07:30 Pantoprazole [ProTONIX] 40 mg PO ACBREAKFAST 07/13/18 09:21 Peripheral IV Discontinue [OM.PC] Routine - Plan Plan:: ASSESSMENT AND PLAN - Acute recurrent pancreatitis - likely secondary to alcohol with report of recent and consistent use. Slow but steady improvement. Not taking in much orally but pain has been controlled with oral medications. -Continue oral morphine -Continue clear liquids, advance to full liquids tomorrow if tolerating overnight -Discontinue IV fluids - anti-nausea medication Alcohol dependence and abuse - recently spent time in detox for alcohol dependence with the hope of cessation but she has returned to regular use. she had been sober for a good time prior to that. - Encourage cessation and offer support as able - supplement thiamine and folate -Outpatient follow-up with counseling as scheduled next week Maintenance issues - - DVT prophylaxis - SCD's - GI prophylaxis - PPI - Nutrition - clear liquids Disposition - I would anticipate discharge to home after the hospital stay, hopefully tomorrow if stable overnight Edilberto Guerrero M.D.
[2018-07-13] MEDS ORDERED: Sodium Chloride 0.9% 1,000 ML IV SCH (12:00)
[2018-07-13] MEDS: Losartan 50 MG Tab PO SCH (22:24)
[2018-07-14 07:17] VITALS: BP 171/86
[2018-07-14] MEDS: Pantoprazole 40 MG Tab.CR PO SCH (07:49)
[2018-07-14] MEDS: Morphine 15 MG Tab PO PRN (07:51)
[2018-07-14] MEDS: Metoprolol Tartrate 25 MG Tab PO SCH (08:00)
[2018-07-14] MEDS: Cyanocobalamin (Vitamin B12) 1,000 MCG Tab SL SCH (08:00)
[2018-07-14] MEDS: cycloSPORINE Ophth Drops U/D Box of 30 EYEBOTH SCH (08:00)
[2018-07-14] MEDS: Thiamine 100 MG Tab PO SCH (08:00)
[2018-07-14] MEDS: Folic Acid 1 MG Tab PO SCH (08:00)
--- NOTE | 2018-07-14 09:22 | PCM.DCSUM1 ---
Discharge Summary - Hospital Course Brief History: 58-year-old female with history of recurrent pancreatitis and alcohol dependence who presented with acute epigastric abdominal pain. She was admitted for management of acute presumably alcohol induced pancreatitis. Diagnosis: Stroke: No - Discharge Data Discharge Date: 07/14/18 Discharge Disposition: Home, Self-Care 01 Condition: Good - Discharge Diagnosis/Problem(s) (1) 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 SNOMED Code(s): 96009826 ICD Code: K85.90 - ACUTE PANCREATITIS WITHOUT NECROSIS OR INFECTION, UNSP Status: Acute Qualifiers: Chronicity: acute 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 type: alcohol induced Acute pancreatitis complication: no infection or necrosis Qualified Code(s): K85.20 - Alcohol induced acute pancreatitis without necrosis or infection (2) ETOH abuse SNOMED Code(s): 42931554 ICD Code: F10.10 - ALCOHOL ABUSE, UNCOMPLICATED Status: Acute - Patient Summary/Data Hospital Course: Flavio presented to the emergency room with acute epigastric abdominal pain. She was admitted to the hospital for management of acute pancreatitis presumably due to alcohol ingestion. She was made nothing by mouth and provided symptom management as well as IV fluids. Over the next couple of days she showed slow but steady improvement. Her lipase level trended down and normalized. Her pain has slowly improved and we are able to transition her to oral pain medications and a clear liquid diet. She has tolerated this transition well with no significant issues. She has not had any nausea or vomiting. Her pain has remained well controlled with the oral morphine. She feels comfortable going home at this time. She has had previous episodes and thinks that the worst is behind her. I encouraged her to maintain a soft and bland diet for the next several days to 1 week. I did provide a short prescription of morphine to help with her pain as it hopefully continues to decrease after hospital discharge. - Patient Instructions Diet: Diabetic Diet Diet, Other: soft, bland and boring for 5-7 days Activity: As Tolerated Driving: Do Not Drive (if taking pain pills) Showering/Bathing: May Shower Notify Provider of: Fever, Increased Pain, Nausea and/or Vomiting Other/Special Instructions: 1. You were in the hospital for management of acute pancreatitis caused by alcohol ingestion. Your symptoms have been improving with IV fluids, pain management and nothing by mouth status. You may use acetaminophen as needed for mild pain and morphine for moderate pain. I would recommend a soft and bland diet for the next 5-7 days before returning to your regular diet. 2. Continue your usual home medications as previously prescribed. 3. Follow up with Dr. Alexandre in 1-2 weeks or sooner if symptoms do not continue to improve. 4. Seek medical attention if you have fever greater than 101, severe epigastric pain or persistent vomiting. - Discharge Plan *PRESCRIPTION DRUG MONITORING PROGRAM REVIEWED*: Not Applicable *COPY OF PRESCRIPTION DRUG MONITORING REPORT IN PATIENT DARNELL: Not Applicable Prescriptions/Med Rec: Morphine 15 mg PO Q4H PRN #20 tablet PRN Reason: Pain Home Medications: Home Meds Amitriptyline [Elavil] 150 mg PO BEDTIME PRN 06/30/13 [History] cycloSPORINE [Restasis] 1 each EYEBOTH BID 12/30/14 [History] Carvedilol [Coreg] 3.125 mg PO BID 06/20/18 [History] Losartan [Cozaar] 25 mg PO BEDTIME 06/20/18 [History] Cyanocobalamin (Vitamin B-12) [Vitamin B-12] 1,000 mcg SL DAILY 07/10/18 [ History] Folic Acid 1 mg PO DAILY 07/10/18 [History] Magnesium Oxide [Magnesium] 400 mg PO DAILY 07/10/18 [History] Thiamine HCl [Vitamin B-1] 100 mg PO DAILY 07/10/18 [History] Aspirin [Halfprin] 81 mg PO DAILY 07/11/18 [History] Morphine 15 mg PO Q4H PRN #20 tablet 07/14/18 [Rx] Patient Handouts: Acute 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 Referrals: Obi Alexandre MD [Primary Care Provider] - (1-2 weeks - f/u hospital stay for pancreatitis) - Discharge Summary/Plan Comment DC Time >30 min.: No - Patient Data Vitals - Most Recent: Last Vital Signs Temp 35.6 C 07/14/18 07:14 Pulse 74 07/14/18 08:00 Resp 12 07/14/18 07:14 BP 171/86 H 07/14/18 08:00 Pulse Ox 96 07/14/18 07:14 Weight - Most Recent: 69.2 kg I&O - Last 24 hours: Intake & Output 07/13/18 07/14/18 07/14/18 22:59 06:59 14:59 Intake Total 300 Output Total 200 500 Balance 100 -500 Med Orders - Current: Current Medications Acetaminophen (Tylenol) 650 mg PO Q4H PRN PRN Reason: Pain (Mild 1-3)/fever Amitriptyline HCl (Elavil) 150 mg PO BEDTIME PRN PRN Reason: Insomnia Last Admin: 07/13/18 22:25 Dose: 150 mg Cyanocobalamin (Vitamin B12) 1,000 mcg SL DAILY [facility] Last Admin: 07/14/18 08:00 Dose: 1,000 mcg Cyclosporine (Restasis) 0 each EYEBOTH BID [facility] Last Admin: 07/14/18 08:00 Dose: 1 drop Diazepam (Valium.) 5 mg PO BEDTIME PRN PRN Reason: Sleep Last Admin: 07/11/18 19:55 Dose: 5 mg Folic Acid (Folic Acid) 1 mg PO DAILY [facility] Last Admin: 07/14/18 08:00 Dose: 1 mg Heparin Sodium (Porcine) (Heparin Lock Flush 100 Units/Ml) 500 units FLUSH ASDIRECTED PRN PRN Reason: port Last Admin: 07/13/18 04:54 Dose: 500 units Ketorolac Tromethamine (Toradol) 30 mg IVPUSH Q6H PRN PRN Reason: Pain Stop: 07/15/18 10:01 Lorazepam (Ativan) 0.5 - 1 mg IVPUSH Q4H PRN PRN Reason: Nausea/Vomiting Losartan Potassium (Cozaar) 25 mg PO BEDTIME [facility] Last Admin: 07/13/18 22:24 Dose: 25 mg Magnesium Hydroxide (Milk Of Magnesia) 30 ml PO Q12H PRN PRN Reason: Constipation Metoprolol Tartrate (Lopressor) 25 mg PO BID [facility] Last Admin: 07/14/18 08:00 Dose: 25 mg Morphine Sulfate (Morphine) 15 - 30 mg PO Q4H PRN PRN Reason: Pain Last Admin: 07/14/18 07:51 Dose: 15 mg Ondansetron HCl (Zofran Odt) 4 mg PO Q6H PRN PRN Reason: Nausea able to take PO Ondansetron HCl (Zofran) 4 mg IV Q6H PRN PRN Reason: Nausea/Vomiting Pantoprazole Sodium (Protonix) 40 mg PO ACBREAKFAST [facility] Last Admin: 07/14/18 07:49 Dose: 40 mg Polyethylene Glycol (Miralax) 17 gm PO DAILY PRN PRN Reason: Constipation Senna/Docusate Sodium (Senna Plus) 1 tab PO BID PRN PRN Reason: Constipation Thiamine HCl (Vitamin B-1) 100 mg PO DAILY [facility] Last Admin: 07/14/18 08:00 Dose: 100 mg Discontinued Medications Amitriptyline HCl (Elavil) Confirm Administered Dose 50 mg .ROUTE .STK-MED ONE Stop: 07/10/18 21:02 Last Admin: 07/10/18 21:21 Dose: 50 mg Heparin Sodium (Porcine) (Heparin Lock Flush 100 Units/Ml) Confirm Administered Dose 500 units .ROUTE .STK-MED ONE Stop: 07/13/18 00:44 Last Admin: 07/13/18 04:55 Dose: Not Given Hydromorphone HCl (Dilaudid) 0.5 mg IVPUSH ONETIME ONE Stop: 07/10/18 05:18 Last Admin: 07/10/18 05:42 Dose: 0.5 mg Hydromorphone HCl (Dilaudid) 0.5 mg IVPUSH ONETIME ONE Stop: 07/10/18 06:43 Last Admin: 07/10/18 06:57 Dose: 0.5 mg Hydromorphone HCl (Dilaudid) 0.5 mg IVPUSH ONETIME ONE Stop: 07/10/18 08:38 Last Admin: 07/10/18 09:03 Dose: 0.5 mg Hydromorphone HCl (Dilaudid Music Therapy Teacher 15 Mg In Ns 30 Ml) 0 mg IV ASDIRECTED PRN; Protocol PRN Reason: Pain Last Admin: 07/10/18 16:45 Dose: 0.5 mg Sodium Chloride (Normal Saline) 1,000 mls @ 999 mls/hr IV ASDIRECTED GILLIAN Last Admin: 07/10/18 05:38 Dose: 999 mls/hr Sodium Chloride (Normal Saline) 1,000 mls @ 999 mls/hr IV ASDIRECTED GILLIAN Last Admin: 07/10/18 06:57 Dose: 999 mls/hr Sodium Chloride (Normal Saline) 1,000 mls @ 150 mls/hr IV ASDIRECTED GILLIAN Last Admin: 07/12/18 11:07 Dose: 150 mls/hr Sodium Chloride (Normal Saline) 1,000 mls @ 50 mls/hr IV ASDIRECTED GILLIAN Metformin HCl (Glucophage) 500 mg PO BIDMEALS [facility] Last Admin: 07/12/18 08:39 Dose: 500 mg Metoprolol Tartrate (Lopressor) 25 mg PO BID [facility] Naloxone HCl (Narcan) 0.4 mg IVPUSH Q2M PRN PRN Reason: Respiratory Distress Ondansetron HCl (Zofran) 4 mg IVPUSH ONETIME ONE Stop: 07/10/18 05:18 Last Admin: 07/10/18 05:39 Dose: 4 mg Pantoprazole Sodium (Protonix Iv) 40 mg IVPUSH Q24H [facility] Last Admin: 07/12/18 10:01 Dose: 40 mg - Exam Quality Assessment: Denies: Supplemental Oxygen General: Reports: Alert, Oriented, Cooperative, No Acute Distress Lungs: Reports: Normal Respiratory Effort GI/Abdominal Exam: Soft, No Distention Skin: Reports: Warm, Dry Psy/Mental Status: Reports: Alert, Normal Affect
== END 2018-07-14 09:53 | disposition home or self-care (01) | DRG 440 ==
LOC: JP.ED 04:34 → JP.MS 08:38
PROVIDERS: ADMIT Internal Medicine; ATTEND Internal Medicine
DX: K85.20 Alcohol induced acute pancreatitis without necrosis or infection (principal); F10.10 Alcohol abuse, uncomplicated; Y90.0 Blood alcohol level of less than 20 mg/100 ml; E11.9 Type 2 diabetes mellitus without complications; K86.0 Alcohol-induced chronic pancreatitis; F17.210 Nicotine dependence, cigarettes, uncomplicated; Z79.84 Long term (current) use of oral hypoglycemic drugs; R10.13 Epigastric pain; R11.2 Nausea with vomiting, unspecified; I10 Essential (primary) hypertension; F32.9 Major depressive disorder, single episode, unspecified; F41.9 Anxiety disorder, unspecified; Z79.82 Long term (current) use of aspirin; Z88.6 Allergy status to analgesic agent; Z88.5 Allergy status to narcotic agent; Z91.041 Radiographic dye allergy status; Z88.2 Allergy status to sulfonamides; Z88.8 Allergy status to other drugs, medicaments and biological substances; Z96.649 Presence of unspecified artificial hip joint; K86.81 Exocrine pancreatic insufficiency
CPT/HCPCS: 36415; 74022 ×2; 80053; 82150; 82607; 82746; 83690; 85025; 96361; 96374; 96375; 96376; 99285; G0480; J1170 ×2; J2405; J7030 ×2; 80048; 83036; 85027; 94762; 99284; A9270-GY; C1751; C9113; J1642

== ENCOUNTER 2018-11-25 07:59 | Emergency (ER) | payer MEDICARE ==
[2018-11-25 08:15] VITALS: BP 188/90
[2018-11-25] MEDS ORDERED: Ondansetron 4 MG Tab.DIS PO ONE (08:33)
[2018-11-25] MEDS ORDERED: Lactated Ringers 1,000 ML IV ONE (08:33)
--- NOTE | 2018-11-25 08:40 | EDM.PDOC ---
ED HPI GENERAL MEDICAL PROBLEM - General Chief Complaint: Gastrointestinal Problem Stated Complaint: VOMITING, DIARRHEA FOR 6 WEEKS Time Seen by Provider: 11/25/18 08:20 Source of Information: Reports: Patient, Old Records, RN History Limitations: Reports: No Limitations - History of Present Illness INITIAL COMMENTS - FREE TEXT/NARRATIVE: 58 yo female has had severe watery diarrhea, sometimes oily, for the past roughly 6 weeks. Has had a work up through her primary and no definite cause has been discovered. She was given a referral to gastroenterology and her appt was today at 11 am. She decided it would be too difficult to make the trip to [place] for this appt so she came to the ER instead. There has not been a recent change in her sx's to make her decide to come to the ER, rather she is emotional , crying and not thinking clearly. I offered her Zofran and Depends to cover her for the trip as these seemed to be her concerns, but she declined and elected to cancel her appt with GI. I will gather clinic data, and records and see if there is anything we can offer her here. Stool cultures negative, parasites neg, C.diff neg. However, enteroaggregative e. coli was grown on the stool culture. She does not have a gallbladder, and has a hx of recurrent pancreatitis. Has had a course of Cipro 500 mg bid x 7 day, this did not help. Onset: Gradual Onset Date: 10/08/18 Duration: Week(s): (6+) Location: Reports: Abdomen Quality: Reports: Other (no new pain) Severity: Severe (diarrhea) Improves with: Reports: None Worsens with: Reports: Other (eating or drinking, dairy is the worst and this began only after late .) Context: Reports: Other (See HPI) Associated Symptoms: Reports: Nausea/Vomiting. 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 (see below) (home meds) Abdomen Pain Score (Numeric/FACES): 7 - Related Data Allergies Allergy/AdvReac Type Severity Reaction Status Date / Time acetaminophen Allergy Severe Hives Verified 11/25/18 08:12 [From Darvocet-N 100] codeine Allergy Severe Hives Verified 11/25/18 08:12 Iodinated Contrast- Oral and Allergy Severe Cannot Verified 11/25/18 08:12 IV Dye Remember [Iodinated Contrast Media - IV Dye] iodine Allergy Severe Hives Verified 11/25/18 08:12 propoxyphene napsylate Allergy Severe Hives Verified 11/25/18 08:12 [From Darvocet-N 100] Sulfa (Sulfonamide Allergy Severe Hives Verified 11/25/18 08:12 Antibiotics) sulfamethoxazole Allergy Severe Rash Verified 11/25/18 08:12 [From Bactrim] tramadol Allergy Severe Anxiety Verified 11/25/18 08:12 trimethoprim [From Bactrim] Allergy Severe Rash Verified 11/25/18 08:12 Home Meds: Home Meds cycloSPORINE [Restasis] 1 each EYEBOTH BID 12/30/14 [History] Carvedilol [Coreg] 6.25 mg PO BID 06/20/18 [History] Losartan [Cozaar] 25 mg PO DAILY 06/20/18 [History] Acamprosate Calcium 333 mg PO BID 08/28/18 [History] Sertraline HCl 50 mg PO DAILY 08/28/18 [History] Acetaminophen/HYDROcodone [[place] 325-5 MG] 1 - 2 tab PO Q6H PRN #10 tab [Rx] Omeprazole 40 mg PO DAILY #30 cap.sr 10/10/18 [Rx] Ondansetron [Zofran ODT] 4 mg PO Q6H PRN #7 tab.dis 10/10/18 [Rx] metFORMIN HCl [Metformin HCl] 500 mg PO BID 10/10/18 [History] Furosemide [Lasix] 20 mg PO DAILY PRN 10/16/18 [History] Cholestyramine/Sucrose [Cholestyramine Packet] 4 gm PO TID #60 packet 11/25/18 [ Rx] Past Medical History HEENT History: Reports: Impaired Vision Cardiovascular History: Reports: High Cholesterol, Hypertension Gastrointestinal History: Reports: Cholelithiasis, 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 Genitourinary History: Reports: None 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: Musculoskeletal History: Reports: None Psychiatric History: Reports: Addiction, Anxiety, Depression Other Psychiatric History: Lizeth Lopez Endocrine/Metabolic History: Reports: Diabetes, Type II Hematologic History: Reports: Blood Transfusion(s) - Infectious Disease History Infectious Disease History: Reports: Chicken Pox, Mumps - Past Surgical History Head Surgeries/Procedures: Reports: None HEENT Surgical History: Reports: Tonsillectomy Cardiovascular Surgical History: Reports: None GI Surgical History: Reports: Appendectomy, Cholecystectomy, EGD, ERCP Female Surgical History: Reports: Section Endocrine Surgical History: Reports: None Musculoskeletal Surgical History: Reports: Arthroscopic Knee, Hip Replacement, Knee Replacement, Shoulder Surgery, Other (See Below) Other Musculoskeletal Surgeries/Procedures:: "rotator cuff surgery" Dermatological Surgical History: Reports: None Social & Family History - Family History Family Medical History: Noncontributory - Tobacco Use Smoking Status *Q: Former Smoker Used Tobacco, but Quit: Yes Month/Year Tobacco Last Used: 10/2018 - Caffeine Use Caffeine Use: Reports: None - Recreational Drug Use Recreational Drug Use: No ED ROS GENERAL - Review of Systems Review Of Systems: See Below Constitutional: Reports: No Symptoms, Weight Loss (approx. 12 #) HEENT: Reports: No Symptoms Respiratory: Reports: No Symptoms Cardiovascular: Reports: No Symptoms GI/Abdominal: Reports: Abdominal Pain (cramping), Diarrhea, Mucous in Stool, Nausea, Vomiting. Denies: Black Stool, Bloody Stool, Constipation, Distension, Flatus, Hematemesis, Hematochezia, Melena : Reports: No Symptoms Musculoskeletal: Reports: No Symptoms Skin: Reports: No Symptoms Neurological: Reports: No Symptoms Psychiatric: Reports: Anxiety, Depression ED EXAM, GI/ABD - Physical Exam Exam: See Below Exam Limited By: No Limitations General Appearance: Alert, WD/WN, Mild Distress (crying) Eyes: Bilateral: Normal Appearance Ears: Normal External Exam, Normal Canal, Hearing Grossly Normal Nose: Normal Inspection, No Blood Throat/Mouth: Normal Inspection, Normal Lips, Normal Oropharynx, Normal Voice, No Airway Compromise Head: Atraumatic, Normocephalic Neck: Normal Inspection Respiratory/Chest: No Respiratory Distress, Lungs Clear, Normal Breath Sounds, No Accessory Muscle Use Cardiovascular: Regular Rate, Rhythm, No Edema GI/Abdominal Exam: Normal Bowel Sounds, Soft, Non-Tender, No Distention Back Exam: Normal Inspection. No: CVA Tenderness (R), CVA Tenderness (L) Extremities: Normal Inspection, Normal Range of Motion, Non-Tender, No Pedal Edema Neurological: Alert, Oriented, CN II-XII Intact, Normal Cognition, No Motor/ Sensory Deficits Psychiatric: Normal Affect, Normal Mood Skin Exam: Warm, Dry, Intact, Normal Color, No Rash Lymphatic: No Adenopathy Course - Vital Signs Text/Narrative:: Case discussed with Dr. Yates, the animal scientist she was scheduled to see today, for advice @ 1052h. Last Recorded V/S: Last Vital Signs Temp 35.9 C 11/25/18 08:14 Pulse 84 11/25/18 08:14 Resp 14 11/25/18 08:14 BP 188/90 H 11/25/18 08:14 Pulse Ox 96 11/25/18 08:14 - Orders/Labs/Meds Orders: Active Orders 24 hr Category Date Time Status CULTURE STOOL + SHIGATOX [RM] Stat Lab 11/25/18 11:06 Ordered Magnesium Sulfate/Water [Magnesium Sulfate 2 GM in Med 11/25/18 09:41 Active Water 50 ML] 2 gm Premix Bag 1 bag IV ONETIME Medication Orders Magnesium Sulfate 2 gm/ Premix 50 mls @ 12.5 mls/hr IV ONETIME ONE Stop: 11/25/18 13:40 Last Admin: 11/25/18 10:00 Dose: 12.5 mls/hr Labs: Laboratory Tests 11/25/18 11/25/18 11/25/18 Range/Units 08:42 08:42 08:42 Sodium (140-148) mmol/L Potassium (3.6-5.2) mmol/L Chloride (100-108) mmol/L Carbon Dioxide (21-32) mmol/L Anion Gap (5.0-14.0) mmol/L BUN (7-18) mg/dL Creatinine (0.6-1.0) mg/dL Est Cr Clr Drug Dosing mL/min Estimated GFR (MDRD) (>60) Glucose (74-106) mg/dL Calcium (8.5-10.1) mg/dL Magnesium 1.3 L (1.8-2.4) mg/dL Total Bilirubin (0.2-1.0) mg/dL AST (15-37) U/L ALT (12-78) U/L Alkaline Phosphatase (46-116) U/L Total Protein (6.4-8.2) g/dL Albumin (3.4-5.0) g/dL Globulin (2.3-3.5) g/dL Albumin/Globulin Ratio (1.2-2.2) Lipase 73 (73-393) U/L Ethyl Alcohol < 3 mg/dL 11/25/18 Range/Units 08:42 Sodium 138 L (140-148) mmol/L Potassium 3.9 (3.6-5.2) mmol/L Chloride 99 L (100-108) mmol/L Carbon Dioxide 28 (21-32) mmol/L Anion Gap 14.9 H (5.0-14.0) mmol/L BUN 19 H (7-18) mg/dL Creatinine 0.9 (0.6-1.0) mg/dL Est Cr Clr Drug Dosing 62.06 mL/min Estimated GFR (MDRD) > 60 (>60) Glucose 140 H (74-106) mg/dL Calcium 10.9 H (8.5-10.1) mg/dL Magnesium (1.8-2.4) mg/dL Total Bilirubin 1.0 D (0.2-1.0) mg/dL AST 21 (15-37) U/L ALT 20 (12-78) U/L Alkaline Phosphatase 56 (46-116) U/L Total Protein 7.1 (6.4-8.2) g/dL Albumin 3.9 (3.4-5.0) g/dL Globulin 3.2 (2.3-3.5) g/dL Albumin/Globulin Ratio 1.2 (1.2-2.2) Lipase (73-393) U/L Ethyl Alcohol mg/dL Meds: Medications Generic Name Dose Route Start Last Admin Trade Name Freq PRN Reason Stop Dose Admin Magnesium Sulfate 2 gm/ Premix 50 mls @ 12.5 mls/hr 11/25/18 09:41 11/25/18 10:00 IV 11/25/18 13:40 12.5 mls/hr ONETIME ONE Administration Discontinued Medications Generic Name Dose Route Start Last Admin Trade Name Freq PRN Reason Stop Dose Admin Acetaminophen 1,000 mg 11/25/18 10:58 Tylenol Extra Strength PO 11/25/18 10:59 ONETIME ONE Lipase/Protease/Amylase 1 cap 11/25/18 09:44 11/25/18 09:59 Laquita Hilario 12,000 Units PO 11/25/18 09:45 1 cap NOW STA Administration Cholestyramine Resin 4 gm 11/25/18 10:23 11/25/18 10:31 Cholestyramine Packet PO 11/25/18 10:24 4 gm ONETIME ONE Administration Lactated Ringer's 1,000 mls @ 1,000 mls/hr 11/25/18 08:33 11/25/18 08:59 Ringers, Lactated IV 11/25/18 09:32 1,000 mls/hr BOLUS ONE Administration Ondansetron HCl 4 mg 11/25/18 08:33 11/25/18 08:51 Zofran Odt PO 11/25/18 08:34 4 mg ONETIME ONE Administration Departure - Departure Time of Disposition: 11:30 Disposition: Home, Self-Care 01 Condition: Fair Clinical Impression: Chronic diarrhea, Hypomagnesemia - Discharge Information *PRESCRIPTION DRUG MONITORING PROGRAM REVIEWED*: No *COPY OF PRESCRIPTION DRUG MONITORING REPORT IN PATIENT DARNELL: No Prescriptions: Cholestyramine/Sucrose [Cholestyramine Packet] 4 gm PO TID #60 packet Instructions: Hypomagnesemia Referrals: Obi Alexandre MD [Primary Care Provider] - Forms: ED Department Discharge Additional Instructions: F/U with Dr. Yates for colonoscopy to further work up your ongoing diarrhea. Take Cholestyramine with each meal three times a day to try to slow your diarrhea. You may take acetaminophen 1000 mg every 6-8 hrs for pain relief. Once your stool cultures come back, if they are negative, you may then start loperamide per package instructions for diarrhea treatment. Eat a lot of bananas to replenish your magnesium, these tend to help diarrhea as well. - My Orders Last 24 Hours: My Active Orders 11/25/18 09:41 Magnesium Sulfate/Water [Magnesium Sulfate 2 GM in Water 50 ML] 2 gm Premix Bag 1 bag IV ONETIME 11/25/18 11:06 CULTURE STOOL + SHIGATOX [RM] Stat - Assessment/Plan Last 24 Hours: My Active Orders 11/25/18 09:41 Magnesium Sulfate/Water [Magnesium Sulfate 2 GM in Water 50 ML] 2 gm Premix Bag 1 bag IV ONETIME 11/25/18 11:06 CULTURE STOOL + SHIGATOX [RM] Stat
[2018-11-25] MEDS ORDERED: Magnesium Sulfate/Water 2 GM in Premix Bag 1 BAG IV ONE (09:41)
[2018-11-25] MEDS ORDERED: Amylase/Lipase/Protease 12,000 Unit Cap.CR PO STA (09:44)
[2018-11-25] MEDS ORDERED: Cholestyramine/Sucrose Powder 4 GM Packet PO ONE (10:23)
[2018-11-25] MEDS ORDERED: Acetaminophen 500 MG Tab PO ONE (10:58)
== END 2018-11-25 11:53 | disposition home or self-care (01) ==
LOC: JP.ED 07:59
DX: K52.9 Noninfective gastroenteritis and colitis, unspecified (principal); E83.42 Hypomagnesemia; E78.00 Pure hypercholesterolemia, unspecified; I10 Essential (primary) hypertension; F41.9 Anxiety disorder, unspecified; F32.9 Major depressive disorder, single episode, unspecified; Z88.1 Allergy status to other antibiotic agents; Z88.2 Allergy status to sulfonamides; Z88.8 Allergy status to other drugs, medicaments and biological substances; Z79.899 Other long term (current) drug therapy; Z87.891 Personal history of nicotine dependence
CPT/HCPCS: 36415; 80053; 83690; 83735; 87046; 87899; 96361; 96365; 96366; 99284; A9270; G0480; J3475; J7120

== ENCOUNTER 2019-01-04 14:42 | Emergency (ER) | payer MEDICARE ==
[2019-01-04 15:20] VITALS: BP 158/81
[2019-01-04] MEDS ORDERED: Ondansetron 4 MG Tab.DIS PO ONE (17:14)
[2019-01-04] MEDS ORDERED: Alum Hydrox/Mag Hydrox/Simeth 15 ML, Lidocaine 2% 15 ML PO ONE ×2 (17:15)
[2019-01-04] MEDS ORDERED: Sucralfate Suspension 1 GM/10 ML Cup PO ONE (18:12)
--- NOTE | 2019-01-04 18:16 | EDM.PDOC ---
ED HPI GENERAL MEDICAL PROBLEM - General Chief Complaint: Gastrointestinal Problem Stated Complaint: STOMACH Time Seen by Provider: 01/04/19 15:30 Source of Information: Reports: Patient History Limitations: Reports: No Limitations - History of Present Illness INITIAL COMMENTS - FREE TEXT/NARRATIVE: 58 yo with hx of chronic abdominal pain presents with concerns of epigastric abdominal pain and nausea. The pain is the typical pain she has been experiencing for the past several months. No new acute symptoms other that nausea which has been worse today. She presents to the ED because she could not tolerate PO. No fevers. No changes in BMs. She reports she is not concerned about the pain but simply "couldn't keep anything down" Lower Abdominal Pain Score (Numeric/FACES): 8 - Related Data Allergies Allergy/AdvReac Type Severity Reaction Status Date / Time acetaminophen Allergy Severe Hives Verified 11/25/18 08:12 [From Darvocet-N 100] codeine Allergy Severe Hives Verified 11/25/18 08:12 Iodinated Contrast- Oral and Allergy Severe Cannot Verified 11/25/18 08:12 IV Dye Remember [Iodinated Contrast Media - IV Dye] iodine Allergy Severe Hives Verified 11/25/18 08:12 propoxyphene napsylate Allergy Severe Hives Verified 11/25/18 08:12 [From Darvocet-N 100] Sulfa (Sulfonamide Allergy Severe Hives Verified 11/25/18 08:12 Antibiotics) sulfamethoxazole Allergy Severe Rash Verified 11/25/18 08:12 [From Bactrim] tramadol Allergy Severe Anxiety Verified 11/25/18 08:12 trimethoprim [From Bactrim] Allergy Severe Rash Verified 11/25/18 08:12 Home Meds: Home Meds cycloSPORINE [Restasis] 1 each EYEBOTH BID 12/30/14 [History] Carvedilol [Coreg] 6.25 mg PO BID 06/20/18 [History] Losartan [Cozaar] 25 mg PO DAILY 06/20/18 [History] Acamprosate Calcium 333 mg PO BID 08/28/18 [History] Sertraline HCl 50 mg PO DAILY 08/28/18 [History] Acetaminophen/HYDROcodone [[place] 325-5 MG] 1 - 2 tab PO Q6H PRN #10 tab [Rx] Omeprazole 40 mg PO DAILY #30 cap.sr 10/10/18 [Rx] Ondansetron [Zofran ODT] 4 mg PO Q6H PRN #7 tab.dis 10/10/18 [Rx] metFORMIN HCl [Metformin HCl] 500 mg PO BID 10/10/18 [History] Furosemide [Lasix] 20 mg PO DAILY PRN 10/16/18 [History] Cholestyramine/Sucrose [Cholestyramine Packet] 4 gm PO TID #60 packet 11/25/18 [ Rx] Past Medical History HEENT History: Reports: Impaired Vision Cardiovascular History: Reports: High Cholesterol, Hypertension Gastrointestinal History: Reports: Cholelithiasis, 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 Genitourinary History: Reports: None 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: Reports: Musculoskeletal History: Reports: None Psychiatric History: Reports: Addiction, Anxiety, Depression Other Psychiatric History: Lizeth Lopez Endocrine/Metabolic History: Reports: Diabetes, Type II Hematologic History: Reports: Blood Transfusion(s) - Infectious Disease History Infectious Disease History: Reports: Chicken Pox, Mumps - Past Surgical History Head Surgeries/Procedures: Reports: None HEENT Surgical History: Reports: Tonsillectomy Cardiovascular Surgical History: Reports: None GI Surgical History: Reports: Appendectomy, Cholecystectomy, EGD, ERCP Female Surgical History: Reports: Section Endocrine Surgical History: Reports: None Musculoskeletal Surgical History: Reports: Arthroscopic Knee, Hip Replacement, Knee Replacement, Shoulder Surgery, Other (See Below) Other Musculoskeletal Surgeries/Procedures:: "rotator cuff surgery" Dermatological Surgical History: Reports: None Social & Family History - Family History Family Medical History: Noncontributory - Tobacco Use Smoking Status *Q: Current Every Day Smoker Years of Tobacco use: 42 Packs/Tins Daily: 0.5 - Caffeine Use Caffeine Use: Reports: None - Recreational Drug Use Recreational Drug Use: No ED ROS GENERAL - Review of Systems Review Of Systems: See Below Constitutional: Reports: No Symptoms HEENT: Reports: No Symptoms Respiratory: Reports: No Symptoms Cardiovascular: Reports: No Symptoms Endocrine: Reports: No Symptoms GI/Abdominal: Reports: Abdominal Pain, Nausea : Reports: No Symptoms Musculoskeletal: Reports: No Symptoms Skin: Reports: No Symptoms Neurological: Reports: No Symptoms Psychiatric: Reports: No Symptoms Hematologic/Lymphatic: Reports: No Symptoms Immunologic: Reports: No Symptoms ED EXAM, GI/ABD - Physical Exam Exam: See Below Exam Limited By: No Limitations General Appearance: Alert, No Apparent Distress Ears: Normal External Exam Nose: Normal Inspection Throat/Mouth: Normal Inspection Head: Atraumatic, Normocephalic Neck: Normal Inspection Respiratory/Chest: No Respiratory Distress, Lungs Clear Cardiovascular: Regular Rate, Rhythm GI/Abdominal Exam: Soft, Tender (mild epigastric tenderness) Back Exam: Normal Inspection Extremities: Normal Inspection Neurological: Alert, Oriented Psychiatric: Normal Affect, Normal Mood Skin Exam: Warm, Dry Course - Vital Signs Last Recorded V/S: Last Vital Signs Temp 36.7 C 01/04/19 15:22 Pulse 72 01/04/19 15:22 Resp 16 01/04/19 15:22 BP 158/81 H 01/04/19 15:22 Pulse Ox 98 01/04/19 15:22 - Orders/Labs/Meds Meds: Medications Discontinued Medications Generic Name Dose Route Start Last Admin Trade Name Freq PRN Reason Stop Dose Admin Al Hydroxide/Mg Hydroxide 15 0 ml 01/04/19 17:15 01/04/19 17:20 ml/ Lidocaine HCl 15 ml PO 01/04/19 17:16 15 ml ONETIME ONE Administration Ondansetron HCl 4 mg 01/04/19 17:14 01/04/19 17:20 Zofran Odt PO 01/04/19 17:15 4 mg ONETIME ONE Administration Sucralfate 1 gm 01/04/19 18:12 01/04/19 18:22 Carafate PO 01/04/19 18:13 1 gm ONETIME ONE Administration - Re-Assessments/Exams Free Text/Narrative Re-Assessment/Exam: 58 yo presents with concerns of epigastric pain and nausea This has become a chronic problem for her over the past few months Today she was unable to tolerate PO She has a history of gastritis and is not sure if she has been taking her omeprazole or sucralfate She was recently seen in the ED and work up including imaging for these same symptoms was unremarkable. Given her stable vitals and re-assuring exam today do not believe we need to repeat this. She reports she is scheduled to see a GI specialist and have an EGD. She was able to tolerate PO after a single ODT zofran. Discomfort improved with GI cocktail. Given dose of sucralfate. Now that she is tolerating PO plan is for discharge and she has anti-emetics, sucralfate, and PPI at home. 01/05/19 10:41 Departure - Departure Time of Disposition: 18:14 Disposition: Home, Self-Care 01 Condition: Good Clinical Impression: Abdominal pain Qualifiers: Abdominal location: epigastric Qualified Code(s): R10.13 - Epigastric pain - Discharge Information Instructions: Abdominal Pain, Adult, [id number] Referrals: PCP,None [Primary Care Provider] - Forms: ED Department Discharge Additional Instructions: Please follow up with your GI specialist as planned Be sure you are taking your acid suppression medications such as sucralfate and omeprazole
== END 2019-01-04 18:26 | disposition home or self-care (01) ==
LOC: JP.ED 14:42
DX: R10.13 Epigastric pain (principal); R11.0 Nausea; I10 Essential (primary) hypertension; E11.9 Type 2 diabetes mellitus without complications; F41.9 Anxiety disorder, unspecified; F32.9 Major depressive disorder, single episode, unspecified; F17.210 Nicotine dependence, cigarettes, uncomplicated; Z90.49 Acquired absence of other specified parts of digestive tract; Z88.2 Allergy status to sulfonamides; Z88.5 Allergy status to narcotic agent; Z88.8 Allergy status to other drugs, medicaments and biological substances; Z79.899 Other long term (current) drug therapy; Z79.84 Long term (current) use of oral hypoglycemic drugs; Z98.890 Other specified postprocedural states; Z91.041 Radiographic dye allergy status
CPT/HCPCS: 99283; A9270

== ENCOUNTER 2019-02-01 12:51 | Emergency (ER) | payer MEDICARE ==
[2019-02-01 13:08] VITALS: BP 139/64
[2019-02-01] MEDS ORDERED: Potassium Chloride 20 MEQ in Premix Bag 1 BAG IV ONE (13:49)
[2019-02-01] MEDS ORDERED: Sodium Chloride 0.9% 10 ML Syringe FLUSH PRN (13:49)
[2019-02-01] MEDS ORDERED: Potassium Chloride 20 MEQ, Lidocaine 1% 2 ML in Sodium Chloride 0.9% 100 ML IV ONE (14:15)
--- NOTE | 2019-02-01 16:16 | EDM.PDOC ---
ED HPI GENERAL MEDICAL PROBLEM - General Chief Complaint: Gastrointestinal Problem Stated Complaint: RECTAL BLEEDING, LOW POSTASSIUM Time Seen by Provider: 02/01/19 13:30 Source of Information: Reports: Patient History Limitations: Reports: No Limitations - History of Present Illness INITIAL COMMENTS - FREE TEXT/NARRATIVE: This lady was sent over from the clinic by Dr. Gallagher due to rectal bleeding and hypokalemia. This lady has a long history of upper abdominal pain. She's had an EGD a few months ago by Dr. Anand as well as an abdominal CT. So far no etiology has been found. She has been referred to GI in [place] and is scheduled to undergo an EGD and colonoscopy this coming or in 5 days. Her rectal bleeding started last night and she said it was a large amount of bright red blood but there was only one small clot in it. She said it turned the water red. Same thing happened this morning but no clot. Dr. Harris did a rectal exam and found that there was some brown stool with a little bit of blood mixed in with it. She did basic labs which showed a potassium of 2.5. This lady has had a lot of chronic vomiting and diarrhea. Previously she was prescribed potassium but she doesn't take it because she said it hurts her stomach. Upper Abdomen Pain Score (Numeric/FACES): 8 - Related Data Allergies Allergy/AdvReac Type Severity Reaction Status Date / Time acetaminophen Allergy Severe Hives Verified 02/01/19 13:04 [From Darvocet-N 100] codeine Allergy Severe Hives Verified 02/01/19 13:04 Iodinated Contrast- Oral and Allergy Severe Cannot Verified 02/01/19 13:04 IV Dye Remember [Iodinated Contrast Media - IV Dye] iodine Allergy Severe Hives Verified 02/01/19 13:04 propoxyphene napsylate Allergy Severe Hives Verified 02/01/19 13:04 [From Darvocet-N 100] Sulfa (Sulfonamide Allergy Severe Hives Verified 02/01/19 13:04 Antibiotics) sulfamethoxazole Allergy Severe Rash Verified 02/01/19 13:04 [From Bactrim] tramadol Allergy Severe Anxiety Verified 02/01/19 13:04 trimethoprim [From Bactrim] Allergy Severe Rash Verified 02/01/19 13:04 Home Meds: Home Meds cycloSPORINE [Restasis] 1 each EYEBOTH BID 12/30/14 [History] Carvedilol [Coreg] 6.25 mg PO BID 06/20/18 [History] Losartan [Cozaar] 25 mg PO DAILY 06/20/18 [History] Acamprosate Calcium 333 mg PO BID 08/28/18 [History] Sertraline HCl 50 mg PO DAILY 08/28/18 [History] Acetaminophen/HYDROcodone [[place] 325-5 MG] 1 - 2 tab PO Q6H PRN #10 tab [Rx] Omeprazole 40 mg PO DAILY #30 cap.sr 10/10/18 [Rx] Ondansetron [Zofran ODT] 4 mg PO Q6H PRN #7 tab.dis 10/10/18 [Rx] Furosemide [Lasix] 20 mg PO DAILY PRN 10/16/18 [History] Cholestyramine/Sucrose [Cholestyramine Packet] 4 gm PO TID #60 packet 11/25/18 [ Rx] Past Medical History HEENT History: Reports: Impaired Vision Cardiovascular History: Reports: High Cholesterol, Hypertension Gastrointestinal History: Reports: Cholelithiasis, 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 Genitourinary History: Reports: None 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: Musculoskeletal History: Reports: None Psychiatric History: Reports: Addiction, Anxiety, Depression Other Psychiatric History: Lizeth Lopez Endocrine/Metabolic History: Reports: Diabetes, Type II Hematologic History: Reports: Blood Transfusion(s) - Infectious Disease History Infectious Disease History: Reports: Chicken Pox, Mumps - Past Surgical History Head Surgeries/Procedures: Reports: None HEENT Surgical History: Reports: Tonsillectomy Cardiovascular Surgical History: Reports: None GI Surgical History: Reports: Appendectomy, Cholecystectomy, EGD, ERCP Female Surgical History: Reports: Section Endocrine Surgical History: Reports: None Musculoskeletal Surgical History: Reports: Arthroscopic Knee, Hip Replacement, Knee Replacement, Shoulder Surgery, Other (See Below) Other Musculoskeletal Surgeries/Procedures:: "rotator cuff surgery" Dermatological Surgical History: Reports: None Social & Family History - Family History Family Medical History: Noncontributory - Tobacco Use Smoking Status *Q: Current Every Day Smoker Years of Tobacco use: 30 Packs/Tins Daily: 0.5 Used Tobacco, but Quit: No Second Hand Smoke Exposure: No - Caffeine Use Caffeine Use: Reports: None - Recreational Drug Use Recreational Drug Use: No ED ROS GENERAL - Review of Systems Review Of Systems: See Below Constitutional: Reports: No Symptoms HEENT: Reports: No Symptoms Respiratory: Reports: No Symptoms Cardiovascular: Reports: No Symptoms Endocrine: Reports: No Symptoms GI/Abdominal: Reports: Abdominal Pain, Bloody Stool, Vomiting. Denies: Hematochezia, Melena : Reports: No Symptoms ED EXAM, GI/ABD - Physical Exam Exam: See Below Exam Limited By: No Limitations General Appearance: Alert, WD/WN, No Apparent Distress Ears: Normal External Exam Nose: Normal Inspection Throat/Mouth: Normal Oropharynx Head: Atraumatic Neck: Normal Inspection Respiratory/Chest: Lungs Clear Cardiovascular: Regular Rate, Rhythm, No Murmur GI/Abdominal Exam: Normal Bowel Sounds, Soft, Tender (Moderately tender all across the upper abdomen) Rectal (Female) Exam: Other (There was a small amount of medium brown stool with just a very small amount of red blood in it. There was no melena and no actual bright red blood.) Extremities: Normal Inspection Neurological: Alert, Oriented, CN II-XII Intact Course - Vital Signs Last Recorded V/S: Last Vital Signs Temp 36.6 C 02/01/19 13:08 Pulse 66 02/01/19 13:08 Resp 16 02/01/19 13:08 BP 139/64 02/01/19 13:08 Pulse Ox 99 02/01/19 13:08 - Orders/Labs/Meds Orders: Active Orders 24 hr Category Date Time Status Sodium Chloride 0.9% [Saline Flush] Med 02/01/19 13:49 Active 10 ml FLUSH ASDIRECTED PRN Saline Lock Insert [OM.PC] Urgent Oth 02/01/19 13:49 Ordered Medication Orders Sodium Chloride (Saline Flush) 10 ml FLUSH ASDIRECTED PRN PRN Reason: Keep Vein Open Last Admin: 02/01/19 14:13 Dose: 10 ml Meds: Medications Generic Name Dose Route Start Last Admin Trade Name Freq PRN Reason Stop Dose Admin Sodium Chloride 10 ml 02/01/19 13:49 02/01/19 14:13 Saline Flush FLUSH 10 ml ASDIRECTED PRN Administration Keep Vein Open Discontinued Medications Generic Name Dose Route Start Last Admin Trade Name Freq PRN Reason Stop Dose Admin Potassium Chloride 20 meq/ 112 mls @ 56 mls/hr 02/01/19 14:15 02/01/19 14:12 Lidocaine HCl 2 ml/ Sodium IV 02/01/19 16:14 56 mls/hr Chloride ONETIME ONE Administration - Re-Assessments/Exams Free Text/Narrative Re-Assessment/Exam: 02/01/19 16:26 This patient received 20 mEq potassium chloride IV over 2 hours[address] I spoke with Dr. Marsh and he can do the EGD and colonoscopy on Sunday or Sunday and the patient decided that she would like to have the procedures done here. So that has been set up for this coming Sunday. Patient was given instructions on using potassium including salt substitute which can be added to her Gatorade during the bowel prep and just used on a daily basis Departure - Departure Time of Disposition: 16:14 Disposition: Home, Self-Care 01 Condition: Fair Clinical Impression: Abdominal pain, Rectal bleeding, Hypokalemia - Discharge Information Instructions: Abdominal Pain, Adult, [id number], Rectal Bleeding, Easy-to- Read Referrals: Obi Alexandre MD [Primary Care Provider] - Forms: ED Department Discharge Additional Instructions: Plan EGD and Colonscopy on Sunday with Dr Marsh at [facility] in [place]. Our outpatient department will call you with a time and more instructions on Sunday. Continue all of your usual medications. You have a very low potassium level. A low potassium level can lead to some heart arrhythmias. You may use the potassium pills or capsules you already have or you may simply use salt substitute. Salt substitute is her potassium chloride. About a half teaspoon twice daily should be okay. Be sure to add about a half teaspoon of salt substitute to each quart of Gatorade when you are doing the bowel prep. - My Orders Last 24 Hours: My Active Orders 02/01/19 13:49 Sodium Chloride 0.9% [Saline Flush] 10 ml FLUSH ASDIRECTED PRN Saline Lock Insert [OM.PC] Urgent - Assessment/Plan Last 24 Hours: My Active Orders 02/01/19 13:49 Sodium Chloride 0.9% [Saline Flush] 10 ml FLUSH ASDIRECTED PRN Saline Lock Insert [OM.PC] Urgent
== END 2019-02-01 16:24 | disposition home or self-care (01) ==
LOC: EEVIPCON 12:51 → JP.ED 12:51
DX: K62.5 Hemorrhage of anus and rectum (principal); E87.6 Hypokalemia; F17.210 Nicotine dependence, cigarettes, uncomplicated; Z79.899 Other long term (current) drug therapy; Z88.2 Allergy status to sulfonamides; Z88.5 Allergy status to narcotic agent; F41.9 Anxiety disorder, unspecified; F32.9 Major depressive disorder, single episode, unspecified; Z91.041 Radiographic dye allergy status
CPT/HCPCS: 96365; 96366; 99284; J2001; J3480; J7030

== ENCOUNTER 2019-02-04 06:34 | Day surgery (SDC) | payer MEDICARE ==
[2019-02-04] MEDS ORDERED: Sodium Chloride 0.9% 1,000 ML IV SCH (07:15)
[2019-02-04] MEDS ORDERED: Propofol 200 MG/20 ML SDV ONE ×2 (07:19→08:02)
[2019-02-04] MEDS ORDERED: fentaNYL 100 MCG/2 ML SDV ONE (07:19)
[2019-02-04] MEDS ORDERED: Midazolam 1 MG/ML 2 ML SDV ONE (07:19)
[2019-02-04 08:53] VITALS: BP 104/64
--- NOTE | 2019-02-05 08:16 | OR ---
DATE OF PROCEDURE: 02/04/2019 SURGEON: Patrick Marsh MD PROCEDURES: 1. Esophagogastroduodenoscopy. 2. Colonoscopy. FINDINGS: Diverticulosis, moderate, limited to sigmoid colon. COMPLICATIONS: None. MOSAIC TILE MAKER: None. ANESTHESIA: MAC. PREOPERATIVE DIAGNOSES: 1. Diarrhea. 2. Gastrointestinal bleeding. POSTOPERATIVE DIAGNOSES: 1. Diarrhea. 2. Gastrointestinal bleeding. RISKS: Risks, benefits, alternatives, and limitations including, but not limited to infection, bleeding, and perforation explained to the patient, who wished to proceed. PROCEDURE IN DETAIL: The patient was placed in left lateral decubitus position. The EGD scope was introduced and advanced atraumatically to the second part of the duodenum. No evidence of duodenitis or abnormality. On retroflex, there was a very small hiatal hernia. The esophagus was normal. No abnormalities were noted. Digital rectal exam was performed next. No blood was noted. The scope was introduced and advanced atraumatically to the ileocecal valve and no evidence of abnormality was noted in the terminal ileum. Random biopsies were then performed of the cecum and rectum, due to the patient's history of diarrhea. The scope was brought back through the ascending, transverse, descending colon, and retroflexed. No polyps. No old or new blood. No abnormalities of concern. No abnormalities on retroflex. The patient tolerated the procedure well. Patrick Marsh MD /[id number]
== END 2019-02-04 10:00 | disposition home or self-care (01) ==
LOC: JP.SDS 06:34
PROVIDERS: ATTEND Surgery
DX: K57.31 Diverticulosis of large intestine without perforation or abscess with bleeding (principal); K44.9 Diaphragmatic hernia without obstruction or gangrene; I11.0 Hypertensive heart disease with heart failure; I50.9 Heart failure, unspecified; I25.2 Old myocardial infarction; E78.00 Pure hypercholesterolemia, unspecified
CPT/HCPCS: 43235; 45380; 88305; J2250; J2704; J3010; J7030

== ENCOUNTER 2019-02-09 03:26 | Inpatient (IN) | payer MEDICARE ==
[2019-02-09] MEDS ORDERED: HYDROmorphone 1 MG/ML Syringe IVPUSH ONE (03:50)
[2019-02-09] MEDS ORDERED: Ondansetron 4 MG/2 ML SDV IVPUSH ONE (03:50)
[2019-02-09] MEDS ORDERED: LORazepam 2 MG/ML SDV IVPUSH ONE (03:50)
[2019-02-09] MEDS ORDERED: HYDROmorphone 1 MG/ML Syringe ONE (03:50)
[2019-02-09] MEDS ORDERED: diphenhydrAMINE 50 MG/ML SDV ONE (03:50)
[2019-02-09] MEDS ORDERED: diphenhydrAMINE 50 MG/ML SDV IVPUSH ONE (03:50)
[2019-02-09] MEDS ORDERED: Ondansetron 4 MG/2 ML SDV ONE (03:50)
[2019-02-09] MEDS ORDERED: LORazepam 2 MG/ML SDV ONE (03:51)
[2019-02-09] MEDS ORDERED: Sodium Chloride 0.9% 10 ML Syringe FLUSH PRN (04:46)
[2019-02-09] MEDS ORDERED: Iopamidol 612 MG/ML 100 ML Bottle IV SCH (05:00)
[2019-02-09] MEDS ORDERED: Sodium Chloride 0.9% 80 ML IV SCH (05:00)
--- NOTE | 2019-02-09 05:06 | CRLCT ---
INDICATION: Abdominal pain TECHNIQUE: CT abdomen and pelvis acquired with 100 cc Isovue-300 intravenous contrast. COMPARISON: Abdomen and pelvis CT 10/12/2018 FINDINGS: Lower chest: Minimal discoid atelectasis lung bases. Liver: Minimal lobulation of the hepatic contour without focal lesion. Gallbladder and bile ducts: Status post cholecystectomy. Normal diameter common duct for post cholecystectomy patient. Pancreas: Mild peripancreatic edema as well as underlying pancreatic atrophy. No focal fluid collection. Spleen: Unremarkable. Normal in size. No masses. Adrenal glands: Unremarkable. No nodules. Kidneys: No evidence of hydronephrosis. Left renal cyst as well as left renal and right renal lesion which are too small for accurate measurement. GI tract: The stomach is unremarkable. No dilated loops of large or small intestine. Mild prominence of intramural fat at the cecum, nonspecific. No adjacent inflammation. Colonic diverticulosis without deepika diverticulitis. Vasculature: Atherosclerosis without abdominal aortic aneurysm. Pelvis: Limited evaluation secondary to beam hardening artifact from the patient`s hip replacements. Bones: Degenerative disc disease thoracolumbar spine. IMPRESSION: 1. Mild peripancreatic edema suggestive of acute pancreatitis without focal fluid collection. 2. Status post cholecystectomy with normal diameter common duct for post cholecystectomy patient. 3. Colonic diverticulosis without deepika diverticulitis. Please note that all CT scans at this facility use dose modulation, iterative reconstruction, and/or weight-based dosing when appropriate to reduce radiation dose to as low as reasonably achievable. Dictated by Kurt Mcintyre MD @ Feb 09 2019 4:55AM Signed by Dr. Kurt Mcintyre @ Feb 09 2019 5:05AM
--- NOTE | 2019-02-09 06:32 | PCM.HP ---
H&P History of Present Illness - General Date of Service: 02/09/19 Admit Problem/Dx: Admission Diagnosis/Problem Admission Diagnosis/Problem 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 Source of Information: Patient History Limitations: Reports: Other (sedated from medications) - History of Present Illness Initial Comments - Free Text/Narative: Chief complaint: abdominal pain. This is a 58 year old female presented to ER for acute abdominal pain. She reports a 4 months history of abdominal pain. She has been seen multi times in Primary Care for this. On 02/04/2019 she had a UGI and Colonoscopy by at [facility], which was negative. Today at 03:26 she arrives to ER via POV, in acute pain, moaning and crying, holding her abdomen. complaints of left upper abdominal pain. ER exam abdominal painful to exam. guarding and crying for exam. She was given IV Dilaudid 1mg , IV Ativan 1 mg, IV Benadryl 25mg , IV Zofran 4mg for pain. Labs, WBC negative, Lipase 1113. Abdominal CT show acute pancreatitis, see full report. urine with micro and UDS pending. will admit to Hospital for further care and treatment. Onset of Symptoms: Reports: Gradual, Other (abdominal pain x 4 moths) Duration of Symptoms: Reports: Chronic, Getting Worse Location: Reports: Abdomen Quality: Reports: Same as Previous Episode Improves with: Reports: None Worsens with: Reports: None Associated Symptoms: Reports: Loss of Appetite, Malaise, Nausea/Vomiting Left Upper Abdominal Pain Score (Numeric/FACES): 10 - Related Data Allergies/Adverse Reactions: Allergies Allergy/AdvReac Type Severity Reaction Status Date / Time acetaminophen Allergy Severe Hives Verified 02/01/19 13:04 [From Darvocet-N 100] codeine Allergy Severe Hives Verified 02/01/19 13:04 Iodinated Contrast- Oral and Allergy Severe Cannot Verified 02/01/19 13:04 IV Dye Remember [Iodinated Contrast Media - IV Dye] iodine Allergy Severe Hives Verified 02/01/19 13:04 propoxyphene napsylate Allergy Severe Hives Verified 02/01/19 13:04 [From Darvocet-N 100] Sulfa (Sulfonamide Allergy Severe Hives Verified 02/01/19 13:04 Antibiotics) sulfamethoxazole Allergy Severe Rash Verified 02/01/19 13:04 [From Bactrim] tramadol Allergy Severe Anxiety Verified 02/01/19 13:04 trimethoprim [From Bactrim] Allergy Severe Rash Verified 02/01/19 13:04 barley Allergy Rash Verified 02/03/19 10:12 Home Medications: Home Meds Carvedilol [Coreg] 6.25 mg PO BID 06/20/18 [History] Losartan [Cozaar] 100 mg PO DAILY 06/20/18 [History] Ondansetron [Zofran ODT] 4 mg PO Q6H PRN #7 tab.dis 10/10/18 [Rx] Escitalopram [Lexapro] 20 mg PO DAILY 02/03/19 [History] cycloSPORINE [Restasis] 1 drop EYEBOTH BID 02/03/19 [History] Lipase/Protease/Amylase [Lance Hilario 2,600 Unit Cap] 5,200 units PO TID [History] Omeprazole 40 mg PO BID 02/04/19 [History] amLODIPine [Norvasc] 10 mg PO DAILY 02/04/19 [History] Past Medical History HEENT History: Reports: Impaired Vision Cardiovascular History: Reports: High Cholesterol, Hypertension Gastrointestinal History: Reports: Cholelithiasis, 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 Genitourinary History: Reports: None 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: Musculoskeletal History: Reports: None Neurological History: Reports: Concussion Psychiatric History: Reports: Addiction, Anxiety, Depression Other Psychiatric History: Gordon Endocrine/Metabolic History: Reports: Diabetes, Type II Hematologic History: Reports: Blood Transfusion(s) - Infectious Disease History Infectious Disease History: Reports: Chicken Pox, Mumps - Past Surgical History Head Surgeries/Procedures: Reports: None HEENT Surgical History: Reports: Tonsillectomy Cardiovascular Surgical History: Reports: None GI Surgical History: Reports: Appendectomy, Cholecystectomy, EGD, ERCP Female Surgical History: Reports: Section Endocrine Surgical History: Reports: None Musculoskeletal Surgical History: Reports: Arthroscopic Knee, Hip Replacement, Knee Replacement, Shoulder Surgery, Other (See Below) Other Musculoskeletal Surgeries/Procedures:: "rotator cuff surgery" Dermatological Surgical History: Reports: None Social & Family History - Family History Family Medical History: Noncontributory - Tobacco Use Smoking Status *Q: Unknown Ever Smoked - Caffeine Use Caffeine Use: Reports: None H&P Review of Systems - Review of Systems: Review Of Systems: See Below General: Reports: Malaise, Weakness, Decreased Appetite, Other (abdominal pain for the past 4 months) HEENT: Reports: Glasses, Other (upper dentures) Pulmonary: Reports: Other (tobaccco use) Cardiovascular: Reports: No Symptoms Gastrointestinal: Reports: Abdominal Pain, Bloody Stool (hx of blood stool, colonscopy on 02/04/2019 negative), Diarrhea (chronic), Decreased Appetite, Nausea, Vomiting Genitourinary: Reports: No Symptoms Musculoskeletal: Reports: No Symptoms Skin: Reports: No Symptoms Psychiatric: Reports: No Symptoms Neurological: Reports: No Symptoms Hematologic/Lymphatic: Reports: No Symptoms Immunologic: Reports: No Symptoms Exam - Exam Exam: See Below - Vital Signs Vital Signs: Last Vital Signs Temp 34.4 C L 02/09/19 05:42 Pulse 71 02/09/19 05:42 Resp 18 02/09/19 05:42 BP 122/65 02/09/19 05:42 Pulse Ox 99 02/09/19 05:42 Weight: 63.049 kg - Exam Quality Assessment: Other (saline lock) General: Cooperative, Sedated HEENT: PERRLA, Hearing Intact, Mucosa Moist & [place], Nares Patent, Normal Nasal Septum, Posterior Pharynx Clear, Conjunctiva Clear, EOMI, EACs Clear, TMs Clear Neck: Supple, Trachea Midline, 2 Lungs: Clear to Auscultation, Normal Respiratory Effort Cardiovascular: Regular Rate, Regular Rhythm, Normal S1, Normal S2 GI/Abdominal Exam: Normal Bowel Sounds, Soft, Tender (left upper-mid abdominal pain) (Female) Exam: Deferred Rectal (Female) Exam: Deferred Back Exam: Normal Inspection Extremities: Normal Range of Motion, Non-Tender, Normal Capillary Refill, Pedal Edema (1+) Peripheral Pulses: 2+: Brachial (R), Radial (L), Dorsalis Pedis (L), Dorsalis Pedis (R) Skin: Warm, Dry, Intact Neurological: Reflexes Equal Bilateral, Strength Equal Bilateral Neuro Extensive - Mental Status: Other (sedated from medications) Psychiatric: Normal Affect, Normal Mood - Patient Data Lab Results Last 24 hrs: Laboratory Results - last 24 hr 02/09/19 02/09/19 Range/Units 04:00 04:00 WBC 7.0 (4.5-11.0) K/uL RBC 3.50 (3.30-5.50) M/uL Hgb 13.1 (12.0-15.0) g/dL Hct 36.9 (36.0-48.0) % MCV 105 H (80-98) fL MCH 37 H (27-31) pg MCHC 36 (32-36) % Plt Count 233 (150-400) K/uL Neut % (Auto) 65 (36-66) % Lymph % (Auto) 22 L (24-44) % [place] % (Auto) 10 H (2-6) % Eos % (Auto) 3 (2-4) % Baso % (Auto) 1 (0-1) % Sodium 135 L (140-148) mmol/L Potassium 3.8 (3.6-5.2) mmol/L Chloride 99 L (100-108) mmol/L Carbon Dioxide 21 (21-32) mmol/L Anion Gap 18.8 H (5.0-14.0) mmol/L BUN 16 (7-18) mg/dL Creatinine 1.2 H (0.6-1.0) mg/dL Est Cr Clr Drug Dosing TNP Estimated GFR (MDRD) 46 L (>60) Glucose 141 H (74-106) mg/dL Calcium 9.3 (8.5-10.1) mg/dL Total Bilirubin 0.7 (0.2-1.0) mg/dL AST 48 H (15-37) U/L ALT 22 (12-78) U/L Alkaline Phosphatase 104 (46-116) U/L Total Protein 6.6 (6.4-8.2) g/dL Albumin 3.6 (3.4-5.0) g/dL Globulin 3.0 (2.3-3.5) g/dL Albumin/Globulin Ratio 1.2 (1.2-2.2) Lipase 1113 H (73-393) U/L Result Diagrams: 02/09/19 04:00 02/09/19 04:00 - Problem List (1) 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, acute SNOMED Code(s): 923107166 ICD Code: K85.90 - ACUTE PANCREATITIS WITHOUT NECROSIS OR INFECTION, UNSP Status: Acute Priority: High Current Visit: Yes Qualifiers: 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 type: unspecified pancreatitis type (2) Hypokalemia SNOMED Code(s): 93930440 ICD Code: E87.6 - HYPOKALEMIA Status: Acute Priority: Medium Current Visit: Yes (3) HTN (hypertension) SNOMED Code(s): 68237291 ICD Code: I10 - ESSENTIAL (PRIMARY) HYPERTENSION Status: Chronic Priority : Medium Current Visit: Yes Qualifiers: Hypertension type: essential hypertension Qualified Code(s): I10 - Essential (primary) hypertension (4) Tobacco dependence syndrome SNOMED Code(s): 00200825 ICD Code: F17.200 - NICOTINE DEPENDENCE, UNSPECIFIED, UNCOMPLICATED Status : Chronic Priority: Medium Current Visit: Yes Problem List Initiated/Reviewed/Updated: Yes Orders Last 24hrs: Active Orders 24 hr Category Date Time Status Patient Status Manage Transfer [TRANSFER] Routine ADT 02/09/19 06:05 Active Iopamidol [Isovue-300 (61%)] Med 02/09/19 05:00 Active 100 ml IV . DIRECTED Sodium Chloride 0.9% [Normal Saline] 80 ml Med 02/09/19 05:00 Active IV ASDIRECTED Sodium Chloride 0.9% [Saline Flush] Med 02/09/19 04:46 Active 10 ml FLUSH ASDIRECTED PRN Resuscitation Status Routine Resus Stat 02/09/19 06:07 Ordered Medication Orders Sodium Chloride (Normal Saline) 80 mls @ 3 mls/sec IV ASDIRECTED [facility] Iopamidol (Isovue-300 (61%)) 100 ml IV . DIRECTED [facility] Sodium Chloride (Saline Flush) 10 ml FLUSH ASDIRECTED PRN PRN Reason: Keep Vein Open Assessment/Plan Comment:: ASSESSMENT / PLAN: Acute 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 This is a 58 year old female presented to ER for acute abdominal pain. She reports a 4 months history of abdominal pain. She has been seen multi times in Primary Care for this. On 02/04/2019 she had a UGI and Colonoscopy by at [facility], which was negative. Today at 03:26 she arrives to ER via POV, in acute pain, moaning and crying, holding her abdomen. complaints of left upper abdominal pain. ER exam abdominal painful to exam. guarding and crying for exam. She was given IV Dilaudid 1mg , IV Ativan 1 mg, IV Benadryl 25mg , IV Zofran 4mg for pain. Now sedated about awakes to questions. Labs, WBC negative, Lipase 1113. Abdominal CT show acute pancreatitis, see full report. urine with micro and UDS pending. will admit to Hospital for further care and treatment. Plan 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 -Admit to [address] [place] [address] for further monitoring -IV Fluids for rehydration NS at 125 mL per hour -keep NPO -Pain medication ordered -anti-emetic ordered -Advise to notify nurses of any chest pain or other symptoms -pending labs: magnesium, urine with micro and urine drug screen pending -And Sunday a.m. labs: CBC, BMP, Lipase Hypokalemia -schedule Potassium 20 meq po bid HTN, CAD -continue medication History of ETOH abuse -denies any alcohol use -monitor for any signs of withdrawal Tobacco use -declines nicotine patch Maintenance issues -Orders home meds: ordered -Nutrition: NPO diet -Colon catheter not indicated at this time -DVT: Lovenox 40 mg subcut. -PPI: IV Protonix 40mg daily -consult Spiritual CODE STATUS: FULL CODE Admission status: Admit to [address] [place] [address] Admission justification. This patient will be admitted for inpatient services and is medically appropriate meeting medical necessity for inpatient admission as outlined in my documentation. I reasonably expect the patient will require inpatient services that span. Time over 2 midnights. I reasonably expect this patient to be discharged or transferred within 96 hours after admission to the critical access hospital. Disposition; home Primary care provider: Dr. Alexandre Hospitalist: Dr. Guerrero
[2019-02-09] MEDS ORDERED: Albuterol 0.083% 2.5 MG/3 ML Neb Soln NEB PRN (07:36)
[2019-02-09] MEDS ORDERED: Bisacodyl 5 MG Tab PO PRN (07:36)
[2019-02-09] MEDS ORDERED: Albuterol/Ipratropium 3.0-0.5 MG/3 ML Neb Soln NEB PRN (07:36)
[2019-02-09] MEDS ORDERED: Ondansetron 4 MG Tab.DIS PO PRN ×2 (07:36)
[2019-02-09] MEDS ORDERED: LORazepam 2 MG/ML SDV IV PRN (07:36)
[2019-02-09] MEDS ORDERED: Ibuprofen 600 MG Tab PO PRN (07:36)
[2019-02-09] MEDS ORDERED: Morphine 2 MG/ML Syringe IVPUSH PRN (07:36)
[2019-02-09] MEDS ORDERED: Docusate Sodium 100 MG Cap PO PRN (07:36)
[2019-02-09] MEDS ORDERED: Acetaminophen/HYDROcodone 325-5 MG Tab PO PRN (07:36)
[2019-02-09] MEDS ORDERED: Carvedilol 6.25 MG Tab PO SCH (09:00)
[2019-02-09] MEDS: Sodium Chloride 0.9% 1,000 ML IV SCH ×3 (09:18→23:35)
[2019-02-09] MEDS: Pantoprazole 40 MG Vial IVPUSH SCH ×2 (09:18→20:52)
[2019-02-09] MEDS: Losartan 50 MG Tab PO SCH (09:39)
[2019-02-09] MEDS: amLODIPine 10 MG Tab PO SCH (09:40)
[2019-02-09] MEDS: cycloSPORINE Ophth Drops U/D Box of 30 EYEBOTH SCH ×2 (09:41→20:52)
[2019-02-09] MEDS: Escitalopram 20 MG Tab PO SCH (09:41)
[2019-02-09] MEDS: Enoxaparin 40 MG/0.4 ML Syringe SUBCUT SCH (09:42)
--- NOTE | 2019-02-09 11:07 | PCM.PN ---
- General Info Date of Service: 02/09/19 Subjective Update: Agent was admitted early this morning with acute pancreatitis. She reports severe epigastric abdominal pain at this time. Morphine is not helping as much as the time allotted did in the emergency room. No vomiting. No fevers. Lipase level is stable since admission. Functional Status: Denies: Pain Controlled - Review of Systems Gastrointestinal: Reports: Abdominal Pain - Patient Data Vitals - Most Recent: Last Vital Signs Temp 36.2 C 02/09/19 09:00 Pulse 74 02/09/19 09:00 Resp 14 02/09/19 09:00 BP 140/72 02/09/19 09:40 Pulse Ox 98 02/09/19 09:00 Weight - Most Recent: 63.049 kg I&O - Last 24 Hours: Intake & Output 02/08/19 02/09/19 02/09/19 22:59 06:59 14:59 Output Total 300 Balance -300 Lab Results Last 24 Hours: Laboratory Results - last 24 hr 02/09/19 02/09/19 02/09/19 Range/Units 04:00 04:00 08:04 WBC 7.0 (4.5-11.0) K/uL RBC 3.50 (3.30-5.50) M/uL Hgb 13.1 (12.0-15.0) g/dL Hct 36.9 (36.0-48.0) % MCV 105 H (80-98) fL MCH 37 H (27-31) pg MCHC 36 (32-36) % Plt Count 233 (150-400) K/uL Neut % (Auto) 65 (36-66) % Lymph % (Auto) 22 L (24-44) % [place] % (Auto) 10 H (2-6) % Eos % (Auto) 3 (2-4) % Baso % (Auto) 1 (0-1) % Sodium 135 L (140-148) mmol/L Potassium 3.8 (3.6-5.2) mmol/L Chloride 99 L (100-108) mmol/L Carbon Dioxide 21 (21-32) mmol/L Anion Gap 18.8 H (5.0-14.0) mmol/L BUN 16 (7-18) mg/dL Creatinine 1.2 H (0.6-1.0) mg/dL Est Cr Clr Drug Dosing TNP Estimated GFR (MDRD) 46 L (>60) Glucose 141 H (74-106) mg/dL Calcium 9.3 (8.5-10.1) mg/dL Magnesium 0.7 L D (1.8-2.4) mg/dL Total Bilirubin 0.7 (0.2-1.0) mg/dL AST 48 H (15-37) U/L ALT 22 (12-78) U/L Alkaline Phosphatase 104 (46-116) U/L Total Protein 6.6 (6.4-8.2) g/dL Albumin 3.6 (3.4-5.0) g/dL Globulin 3.0 (2.3-3.5) g/dL Albumin/Globulin Ratio 1.2 (1.2-2.2) Amylase (25-115) U/L Lipase 1113 H (73-393) U/L 02/09/19 Range/Units 08:04 WBC (4.5-11.0) K/uL RBC (3.30-5.50) M/uL Hgb (12.0-15.0) g/dL Hct (36.0-48.0) % MCV (80-98) fL MCH (27-31) pg MCHC (32-36) % Plt Count (150-400) K/uL Neut % (Auto) (36-66) % Lymph % (Auto) (24-44) % [place] % (Auto) (2-6) % Eos % (Auto) (2-4) % Baso % (Auto) (0-1) % Sodium (140-148) mmol/L Potassium (3.6-5.2) mmol/L Chloride (100-108) mmol/L Carbon Dioxide (21-32) mmol/L Anion Gap (5.0-14.0) mmol/L BUN (7-18) mg/dL Creatinine (0.6-1.0) mg/dL Est Cr Clr Drug Dosing Estimated GFR (MDRD) (>60) Glucose (74-106) mg/dL Calcium (8.5-10.1) mg/dL Magnesium (1.8-2.4) mg/dL Total Bilirubin (0.2-1.0) mg/dL AST (15-37) U/L ALT (12-78) U/L Alkaline Phosphatase (46-116) U/L Total Protein (6.4-8.2) g/dL Albumin (3.4-5.0) g/dL Globulin (2.3-3.5) g/dL Albumin/Globulin Ratio (1.2-2.2) Amylase 115 D (25-115) U/L Lipase 1317 H (73-393) U/L Med Orders - Current: Current Medications Hydrocodone Bitart/Acetaminophen ([place] 325-5 Mg) 2 tab PO Q4H PRN PRN Reason: Pain (moderate 4-6) Albuterol (Proventil Neb Soln) 2.5 mg NEB Q4H PRN PRN Reason: Shortness Of Breath/wheezing Albuterol/Ipratropium (Duoneb 3.0-0.5 Mg/3 Ml) 3 ml NEB QID PRN PRN Reason: Shortness Of Breath/wheezing Amlodipine Besylate (Norvasc) 10 mg PO DAILY [facility] Last Admin: 02/09/19 09:40 Dose: 10 mg Bisacodyl (Dulcolax) 5 mg PO DAILY PRN PRN Reason: Constipation Cyclosporine (Restasis) 0 each EYEBOTH BID [facility] Last Admin: 02/09/19 09:41 Dose: 1 drop Docusate Sodium (Colace) 100 mg PO BID PRN PRN Reason: Constipation Enoxaparin Sodium (Lovenox) 40 mg SUBCUT Q24H [facility] Last Admin: 02/09/19 09:42 Dose: 40 mg Escitalopram Oxalate (Lexapro) 20 mg PO DAILY [facility] Last Admin: 02/09/19 09:41 Dose: 20 mg Hydromorphone HCl (Dilaudid) 1 mg IVPUSH Q2H PRN PRN Reason: Pain (severe 7-10) Sodium Chloride (Normal Saline) 1,000 mls @ 125 mls/hr IV ASDIRECTED [facility] Last Admin: 02/09/19 09:18 Dose: 125 mls/hr Magnesium Sulfate 2 gm/ Premix 50 mls @ 25 mls/hr IV Q6H [facility] Stop: 02/10/19 12:59 Ibuprofen (Motrin) 600 mg PO Q6H PRN PRN Reason: Pain/Fever Iopamidol (Isovue-300 (61%)) 100 ml IV . DIRECTED [facility] Last Admin: 02/09/19 07:40 Dose: 100 ml Lorazepam (Ativan) 1 mg IV Q4H PRN PRN Reason: Anxiety Losartan Potassium (Cozaar) 100 mg PO DAILY [facility] Last Admin: 02/09/19 09:39 Dose: 100 mg Non-Formulary Medication (Lipase/Protease/Amylase [Pancreaze Dr 2,600 Unit Cap] ) 5,200 units PO TID [facility] Ondansetron HCl (Zofran) 4 mg IV Q4H PRN PRN Reason: Nausea/Vomiting Ondansetron HCl (Zofran Odt) 4 mg PO Q6H PRN PRN Reason: Nausea Pantoprazole Sodium (Protonix Iv) 40 mg IVPUSH Q12H [facility] Last Admin: 02/09/19 09:18 Dose: 40 mg Sodium Chloride (Saline Flush) 10 ml FLUSH ASDIRECTED PRN PRN Reason: Keep Vein Open Discontinued Medications Carvedilol (Coreg) 6.25 mg PO BID [facility] Diphenhydramine HCl (Benadryl) 25 mg IVPUSH ONETIME ONE Stop: 02/09/19 03:51 Last Admin: 02/09/19 03:55 Dose: 25 mg Hydromorphone HCl (Dilaudid) 1 mg IVPUSH ONETIME ONE Stop: 02/09/19 03:51 Last Admin: 02/09/19 04:03 Dose: 1 mg Sodium Chloride (Normal Saline) 80 mls @ 3 mls/sec IV ASDIRECTED [facility] Last Admin: 02/09/19 07:40 Dose: 3 mls/sec Lorazepam (Ativan) 1 mg IVPUSH ONETIME ONE Stop: 02/09/19 03:51 Last Admin: 02/09/19 04:01 Dose: 1 mg Morphine Sulfate (Morphine) 2 mg IVPUSH Q2H PRN PRN Reason: Pain (severe 7-10) Last Admin: 02/09/19 09:17 Dose: 2 mg Ondansetron HCl (Zofran) 4 mg IVPUSH ONETIME ONE Stop: 02/09/19 03:51 Last Admin: 02/09/19 03:59 Dose: 4 mg - Exam Quality Assessment: No: Supplemental Oxygen General: Alert, Oriented, Cooperative, Moderate Distress Lungs: Normal Respiratory Effort Cardiovascular: Regular Rate, Regular Rhythm GI/Abdominal Exam: Soft, No Distention Extremities: No Pedal Edema Psy/Mental Status: Alert, Normal Affect - Problem List Review Problem List Initiated/Reviewed/Updated: Yes - My Orders Last 24 Hours: My Active Orders 02/09/19 11:00 Magnesium Sulfate/Water [Magnesium Sulfate 2 GM in Water 50 ML] 2 gm Premix Bag 1 bag IV Q6H 02/09/19 11:05 HYDROmorphone [Dilaudid] 1 mg IVPUSH Q2H PRN 02/10/19 05:11 LIPASE [CHEM] AM - Plan Plan:: ASSESSMENT / PLAN: Acute 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 - long history of pancreatitis. Patient reports smoldering symptoms for several months. Lipase elevated and CT scan consistent with acute pancreatitis. No pseudocyst or fluid collection identified. -IV Fluids for rehydration NS at 125 mL per hour -keep NPO -Dilaudid for pain control -anti-emetic ordered -Repeat lipase in the morning Hypomagnesemia- will need supplementation. -2 g every 6 hours 5 doses HTN, CAD -continue medication History of ETOH abuse -denies any alcohol use -monitor for any signs of withdrawal Tobacco use -declines nicotine patch Maintenance issues -Nutrition: NPO diet -Colon catheter not indicated at this time -DVT: Lovenox 40 mg subcut. -PPI: IV Protonix 40mg daily Disposition; home Primary care provider: Dr. Baldomero Guerrero M.D.
[2019-02-09] MEDS: HYDROmorphone 1 MG/ML Syringe IVPUSH PRN ×6 (11:29→23:28)
[2019-02-09] MEDS: Magnesium Sulfate/Water 2 GM in Premix Bag 1 BAG IV SCH ×3 (13:24→22:36)
[2019-02-09] MEDS: Ondansetron 4 MG/2 ML SDV IV PRN ×2 (13:38→20:46)
[2019-02-10] MEDS: HYDROmorphone 1 MG/ML Syringe IVPUSH PRN ×5 (01:39→11:42)
[2019-02-10] MEDS: Magnesium Sulfate/Water 2 GM in Premix Bag 1 BAG IV SCH ×2 (04:17→11:07)
[2019-02-10] MEDS: Ondansetron 4 MG/2 ML SDV IV PRN (04:24)
[2019-02-10] MEDS: Sodium Chloride 0.9% 1,000 ML IV SCH (07:18)
[2019-02-10] MEDS ORDERED: Potassium Chloride Riders 40 MEQ in Premix Bag 1 BAG IV ONE (08:49)
[2019-02-10] MEDS: Pantoprazole 40 MG Vial IVPUSH SCH (09:02)
[2019-02-10] MEDS: amLODIPine 10 MG Tab PO SCH (09:02)
[2019-02-10] MEDS: cycloSPORINE Ophth Drops U/D Box of 30 EYEBOTH SCH ×2 (09:02→20:14)
[2019-02-10] MEDS: Losartan 50 MG Tab PO SCH (09:03)
[2019-02-10] MEDS: Escitalopram 20 MG Tab PO SCH (09:03)
[2019-02-10] MEDS: Enoxaparin 40 MG/0.4 ML Syringe SUBCUT SCH (09:04)
[2019-02-10] MEDS ORDERED: Potassium Chloride 20 MEQ Tab.ER PO ONE (09:30)
[2019-02-10] MEDS: Potassium Chloride 20 MEQ, Lidocaine 1% 2 ML in Sodium Chloride 0.9% 100 ML IV SCH ×2 (11:07→12:55)
[2019-02-10] MEDS: PANCRELIPASE PO SCH ×2 (15:00→20:13)
[2019-02-10] MEDS: HYDROmorphone 2 MG Tab PO PRN ×3 (16:18→23:57)
--- NOTE | 2019-02-10 16:58 | PCM.PN ---
- General Info Date of Service: 02/10/19 Subjective Update: Ms. Ma has improved since admission, abdominal pain is back to baseline and lipase level has significantly improved but is not yet back to normal range. No nausea or vomiting and appetite has improved. Functional Status: Reports: Ambulating, Urinating - Review of Systems General: Denies: Fever, Weakness, Chills Pulmonary: Reports: No Symptoms Cardiovascular: Reports: No Symptoms Gastrointestinal: Reports: Abdominal Pain, Diarrhea. Denies: Decreased Appetite , Difficulty Swallowing, Nausea, Vomiting - Patient Data Vitals - Most Recent: Last Vital Signs Temp 97.8 F 02/10/19 14:49 Pulse 69 02/10/19 14:49 Resp 12 02/10/19 14:49 BP 101/56 L 02/10/19 14:49 Pulse Ox 95 02/10/19 14:49 Weight - Most Recent: 138 lb 15.988 oz I&O - Last 24 Hours: Intake & Output 02/10/19 02/10/19 02/10/19 06:59 14:59 22:59 Intake Total 2521 480 Output Total 750 400 Balance 1771 -400 480 Lab Results Last 24 Hours: Laboratory Results - last 24 hr 02/09/19 02/09/19 02/10/19 Range/Units 04:00 04:00 05:45 WBC 7.0 5.7 (4.5-11.0) K/uL RBC 3.50 3.02 L (3.30-5.50) M/uL Hgb 13.1 11.1 L D (12.0-15.0) g/dL Hct 36.9 32.0 L (36.0-48.0) % MCV 105 H 106 H (80-98) fL MCH 37 H 37 H (27-31) pg MCHC 36 35 (32-36) % Plt Count 233 209 (150-400) K/uL Neut % (Auto) 65 77 H (36-66) % Lymph % (Auto) 22 L 14 L (24-44) % [place] % (Auto) 10 H 7 H (2-6) % Eos % (Auto) 3 1 L (2-4) % Baso % (Auto) 1 0 (0-1) % Sodium 135 L (140-148) mmol/L Potassium 3.8 (3.6-5.2) mmol/L Chloride 99 L (100-108) mmol/L Carbon Dioxide 21 (21-32) mmol/L Anion Gap 18.8 H (5.0-14.0) mmol/L BUN 16 (7-18) mg/dL Creatinine 1.2 H (0.6-1.0) mg/dL Est Cr Clr Drug Dosing TNP Estimated GFR (MDRD) 46 L (>60) Glucose 141 H (74-106) mg/dL Calcium 9.3 (8.5-10.1) mg/dL Total Bilirubin 0.7 (0.2-1.0) mg/dL AST 48 H (15-37) U/L ALT 22 (12-78) U/L Alkaline Phosphatase 104 (46-116) U/L Total Protein 6.6 (6.4-8.2) g/dL Albumin 3.6 (3.4-5.0) g/dL Globulin 3.0 (2.3-3.5) g/dL Albumin/Globulin Ratio 1.2 (1.2-2.2) Lipase 1113 H (73-393) U/L 02/10/19 Range/Units 05:45 WBC (4.5-11.0) K/uL RBC (3.30-5.50) M/uL Hgb (12.0-15.0) g/dL Hct (36.0-48.0) % MCV (80-98) fL MCH (27-31) pg MCHC (32-36) % Plt Count (150-400) K/uL Neut % (Auto) (36-66) % Lymph % (Auto) (24-44) % [place] % (Auto) (2-6) % Eos % (Auto) (2-4) % Baso % (Auto) (0-1) % Sodium 139 L (140-148) mmol/L Potassium 3.1 L (3.6-5.2) mmol/L Chloride 106 (100-108) mmol/L Carbon Dioxide 25 (21-32) mmol/L Anion Gap 11.1 (5.0-14.0) mmol/L BUN 8 (7-18) mg/dL Creatinine 0.7 (0.6-1.0) mg/dL Est Cr Clr Drug Dosing 79.79 Estimated GFR (MDRD) > 60 (>60) Glucose 84 (74-106) mg/dL Calcium 8.5 (8.5-10.1) mg/dL Total Bilirubin (0.2-1.0) mg/dL AST (15-37) U/L ALT (12-78) U/L Alkaline Phosphatase (46-116) U/L Total Protein (6.4-8.2) g/dL Albumin (3.4-5.0) g/dL Globulin (2.3-3.5) g/dL Albumin/Globulin Ratio (1.2-2.2) Lipase 540 H (73-393) U/L Med Orders - Current: Current Medications Albuterol (Proventil Neb Soln) 2.5 mg NEB Q4H PRN PRN Reason: Shortness Of Breath/wheezing Albuterol/Ipratropium (Duoneb 3.0-0.5 Mg/3 Ml) 3 ml NEB QID PRN PRN Reason: Shortness Of Breath/wheezing Amlodipine Besylate (Norvasc) 10 mg PO DAILY [facility] Last Admin: 02/10/19 09:02 Dose: 10 mg Bisacodyl (Dulcolax) 5 mg PO DAILY PRN PRN Reason: Constipation Cyclosporine (Restasis) 0 each EYEBOTH BID [facility] Last Admin: 02/10/19 09:02 Dose: 1 drop Docusate Sodium (Colace) 100 mg PO BID PRN PRN Reason: Constipation Enoxaparin Sodium (Lovenox) 40 mg SUBCUT Q24H [facility] Last Admin: 02/10/19 09:04 Dose: 40 mg Escitalopram Oxalate (Lexapro) 20 mg PO DAILY [facility] Last Admin: 02/10/19 09:03 Dose: 20 mg Hydromorphone HCl (Dilaudid) 2 mg PO Q4H PRN PRN Reason: Pain Last Admin: 02/10/19 16:18 Dose: 2 mg Ibuprofen (Motrin) 600 mg PO Q6H PRN PRN Reason: Pain/Fever Lorazepam (Ativan) 0.5 mg IV Q4H PRN PRN Reason: Anxiety Losartan Potassium (Cozaar) 100 mg PO DAILY [facility] Last Admin: 02/10/19 09:03 Dose: 100 mg Ondansetron HCl (Zofran) 4 mg IV Q4H PRN PRN Reason: Nausea/Vomiting Last Admin: 04/29/19 04:24 Dose: 4 mg Ondansetron HCl (Zofran Odt) 4 mg PO Q6H PRN PRN Reason: Nausea Pantoprazole Sodium (Protonix) 40 mg PO DAILY [facility] Pancreaze 2,600 Unit (Caps (Ptom)) 0 each PO TID [facility] Last Admin: 02/10/19 15:00 Dose: 1 each Sodium Chloride (Saline Flush) 10 ml FLUSH ASDIRECTED PRN PRN Reason: Keep Vein Open Discontinued Medications Hydrocodone Bitart/Acetaminophen ([place] 325-5 Mg) 2 tab PO Q4H PRN PRN Reason: Pain (moderate 4-6) Carvedilol (Coreg) 6.25 mg PO BID [facility] Last Admin: 02/09/19 13:57 Dose: Not Given Diphenhydramine HCl (Benadryl) 25 mg IVPUSH ONETIME ONE Stop: 02/09/19 03:51 Last Admin: 02/09/19 03:55 Dose: 25 mg Diphenhydramine HCl (Benadryl) Confirm Administered Dose 50 mg .ROUTE .STK-MED ONE Stop: 02/09/19 03:51 Last Admin: 02/10/19 08:17 Dose: Not Given Hydromorphone HCl (Dilaudid) 1 mg IVPUSH ONETIME ONE Stop: 02/09/19 03:51 Last Admin: 02/09/19 04:03 Dose: 1 mg Hydromorphone HCl (Dilaudid) 1 mg IVPUSH Q2H PRN PRN Reason: Pain (severe 7-10) Last Admin: 02/10/19 11:42 Dose: 1 mg Hydromorphone HCl (Dilaudid) Confirm Administered Dose 1 mg .ROUTE .STK-MED ONE Stop: 02/09/19 03:51 Last Admin: 02/10/19 08:17 Dose: Not Given Sodium Chloride (Normal Saline) 80 mls @ 3 mls/sec IV ASDIRECTED [facility] Last Admin: 02/09/19 07:40 Dose: 3 mls/sec Sodium Chloride (Normal Saline) 1,000 mls @ 125 mls/hr IV ASDIRECTED [facility] Last Admin: 02/10/19 07:18 Dose: 125 mls/hr Magnesium Sulfate 2 gm/ Premix 50 mls @ 25 mls/hr IV Q6H [facility] Stop: 02/10/19 12:59 Last Admin: 02/10/19 11:07 Dose: 25 mls/hr Potassium Chloride 20 meq/Lidocaine HCl 2 ml/ Sodium Chloride 112 mls @ 56 mls/ hr IV Q2H [facility] Stop: 02/10/19 13:59 Last Admin: 02/10/19 12:55 Dose: 56 mls/hr Iopamidol (Isovue-300 (61%)) 100 ml IV . DIRECTED [facility] Last Admin: 02/09/19 07:40 Dose: 100 ml Lorazepam (Ativan) 1 mg IV Q4H PRN PRN Reason: Anxiety Last Admin: 02/09/19 16:53 Dose: 1 mg Lorazepam (Ativan) 1 mg IVPUSH ONETIME ONE Stop: 02/09/19 03:51 Last Admin: 02/09/19 04:01 Dose: 1 mg Lorazepam (Ativan) Confirm Administered Dose 2 mg .ROUTE .STK-MED ONE Stop: 02/09/19 03:52 Last Admin: 02/10/19 08:17 Dose: Not Given Morphine Sulfate (Morphine) 2 mg IVPUSH Q2H PRN PRN Reason: Pain (severe 7-10) Last Admin: 02/09/19 09:17 Dose: 2 mg Ondansetron HCl (Zofran) 4 mg IVPUSH ONETIME ONE Stop: 02/09/19 03:51 Last Admin: 02/09/19 03:59 Dose: 4 mg Ondansetron HCl (Zofran) Confirm Administered Dose 4 mg .ROUTE .STK-MED ONE Stop: 02/09/19 03:51 Last Admin: 02/10/19 08:18 Dose: Not Given Pantoprazole Sodium (Protonix Iv) 40 mg IVPUSH Q12H [facility] Last Admin: 02/10/19 09:02 Dose: 40 mg Potassium Chloride (Klor-Con M20) 40 meq PO ONETIME ONE Stop: 02/10/19 09:31 Last Admin: 02/10/19 09:35 Dose: 40 meq - Exam Quality Assessment: DVT Prophylaxis General: Alert, Oriented, Cooperative, No Acute Distress Lungs: Clear to Auscultation, Normal Respiratory Effort Cardiovascular: Regular Rate, Regular Rhythm, No Murmurs GI/Abdominal Exam: Soft, No Organomegaly, Tender. No: Distended, Guarding, Rigid, Rebound Extremities: Non-Tender, No Pedal Edema - Problem List Review Problem List Initiated/Reviewed/Updated: Yes - My Orders Last 24 Hours: My Active Orders 02/10/19 12:54 HYDROmorphone [Dilaudid] 2 mg PO Q4H PRN Convert IV to Saline Lock [OM.PC] Routine 02/10/19 16:54 LORazepam [Ativan] 0.5 mg IV Q4H PRN 02/10/19 Lunch Regular Diet [DIET] 02/11/19 05:00 BASIC METABOLIC PANEL,BMP [CHEM] Timed LIPASE [CHEM] Timed MAGNESIUM [CHEM] Timed 02/11/19 09:00 Pantoprazole [ProTONIX] 40 mg PO DAILY - Plan Plan:: ASSESSMENT / PLAN: Acute 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 - long history of pancreatitis. Patient reports smoldering symptoms for several months. Lipase elevated and CT scan consistent with acute pancreatitis. No pseudocyst or fluid collection identified. Pain back to baseline with significant improvement in lipase level -Saline lock IV -Regular diet -Dilaudid po for pain control -anti-emetic ordered -Repeat lipase in the morning Hypomagnesemia- will need supplementation. -2 g every 6 hours 5 doses -Recheck magnesium level in a.m. HTN, CAD -continue medication History of ETOH abuse -denies any alcohol use -monitor for any signs of withdrawal Tobacco use -declines nicotine patch Maintenance issues -Nutrition: NPO diet -Colon catheter not indicated at this time -DVT: Lovenox 40 mg subcut. -PPI: IV Protonix 40mg daily Disposition; home Primary care provider: Dr. Alexandre
[2019-02-10] MEDS: LORazepam 2 MG/ML SDV IV PRN (20:13)
[2019-02-11] MEDS: LORazepam 2 MG/ML SDV IV PRN ×3 (00:05→08:16)
[2019-02-11] MEDS: HYDROmorphone 2 MG Tab PO PRN ×2 (04:16→08:16)
[2019-02-11] MEDS ORDERED: Pantoprazole 40 MG Tab.CR PO SCH (07:30)
[2019-02-11] MEDS: Losartan 50 MG Tab PO SCH (08:08)
[2019-02-11] MEDS: Escitalopram 20 MG Tab PO SCH (08:08)
[2019-02-11] MEDS: cycloSPORINE Ophth Drops U/D Box of 30 EYEBOTH SCH (08:08)
[2019-02-11] MEDS: amLODIPine 10 MG Tab PO SCH (08:08)
[2019-02-11] MEDS: PANCRELIPASE PO SCH (08:09)
[2019-02-11] MEDS ORDERED: Magnesium Oxide 400 MG Tab PO SCH (09:00)
[2019-02-11] MEDS ORDERED: Magnesium Sulfate/Water 2 GM in Premix Bag 1 BAG IV ONE (10:00)
[2019-02-11] MEDS: Enoxaparin 40 MG/0.4 ML Syringe SUBCUT SCH (10:31)
[2019-02-11 11:10] VITALS: BP 110/65
--- NOTE | 2019-02-11 12:38 | PCM.DCSUM1 ---
Discharge Summary - Hospital Course Brief History: Ms. Ma is a 58-year-old woman who was admitted through the emergency department with vomiting and abdominal pain secondary to acute on chronic pancreatitis. - Discharge Data Discharge Date: 02/11/19 Discharge Disposition: Home, Self-Care 01 Condition: Fair - Discharge Diagnosis/Problem(s) (1) 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, acute SNOMED Code(s): 537583096 ICD Code: K85.90 - ACUTE PANCREATITIS WITHOUT NECROSIS OR INFECTION, UNSP Status: Acute Priority: High Current Visit: Yes Qualifiers: 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 type: unspecified pancreatitis type (2) Abdominal pain SNOMED Code(s): 06714614 ICD Code: R10.9 - UNSPECIFIED ABDOMINAL PAIN Status: Acute Current Visit : No (3) Hypokalemia SNOMED Code(s): 16395774 ICD Code: E87.6 - HYPOKALEMIA Status: Acute Priority: Medium Current Visit: Yes (4) Chronic pancreatitis SNOMED Code(s): 845391390 ICD Code: K86.1 - OTHER CHRONIC PANCREATITIS Status: Chronic Current Visit: No (5) Chronic diarrhea SNOMED Code(s): 183820602 ICD Code: K52.9 - NONINFECTIVE GASTROENTERITIS AND COLITIS, UNSPECIFIED Status: Chronic Current Visit: No - Patient Summary/Data Consults: Consultations 02/09/19 07:36 Consult to Spiritual Care [CONS] Routine Hospital Course: Ms. Ma is a 58-year-old woman who was admitted through the emergency department with nausea, vomiting, and abdominal pain, secondary to acute on chronic pancreatitis. She's been experiencing difficulty with abdominal pain over the past 4 months and currently is being followed by gastroenterology for chronic pancreatitis. She developed symptoms as above on the day of admission and presented to the emergency department for further evaluation. Lipase level was noted to be elevated at [address] scan of the abdomen and pelvis did show evidence of acute pancreatitis. She was admitted to the hospital and given pain medication as well as medication for nausea as needed. She was kept nothing by mouth and given IV fluids for hydration. Over the next few days of hospitalization lipase level normalized and pain resolved to baseline level. She will be discharged to home with primary care follow-up as well as follow-up with gastroenterology which is already scheduled. Activity will be as tolerated and she will resume her usual diet. - Patient Instructions Diet: Usual Diet as Tolerated Activity: As Tolerated Other/Special Instructions: Please schedule follow-up appointment with Dr. Alexandre within 1 week. Patient already has appointment scheduled with gastroenterology early February. - Discharge Plan *PRESCRIPTION DRUG MONITORING PROGRAM REVIEWED*: Not Applicable *COPY OF PRESCRIPTION DRUG MONITORING REPORT IN PATIENT DARNELL: Not Applicable Prescriptions/Med Rec: Magnesium Oxide 400 mg PO BID #60 tablet Home Medications: Home Meds Losartan [Cozaar] 100 mg PO DAILY 06/20/18 [History] Ondansetron [Zofran ODT] 4 mg PO Q6H PRN #7 tab.dis 10/10/18 [Rx] Escitalopram [Lexapro] 20 mg PO DAILY 02/03/19 [History] cycloSPORINE [Restasis] 1 drop EYEBOTH BID 02/03/19 [History] Lipase/Protease/Amylase [Lance Hilario 2,600 Unit Cap] 5,200 units PO TID [History] Omeprazole 40 mg PO BID 02/04/19 [History] amLODIPine [Norvasc] 10 mg PO DAILY 02/04/19 [History] Magnesium Oxide 400 mg PO BID #60 tablet 02/11/19 [Rx] Referrals: Obi Alexandre MD [Primary Care Provider] - 02/18/19 1:30 pm (Please arrive 15 minutes early to register for your appointment. ) - Discharge Summary/Plan Comment DC Time >30 min.: No - Patient Data Vitals - Most Recent: Last Vital Signs Temp 96.9 F 02/11/19 11:08 Pulse 76 02/11/19 11:08 Resp 12 02/11/19 11:08 BP 110/65 02/11/19 11:08 Pulse Ox 96 02/11/19 11:08 Weight - Most Recent: 138 lb 15.988 oz I&O - Last 24 hours: Intake & Output 02/10/19 02/11/19 02/11/19 22:59 06:59 14:59 Intake Total 2030 540 Output Total 600 800 Balance 1430 -800 540 Lab Results - Last 24 hrs: Laboratory Results - last 24 hr 02/11/19 Range/Units 04:40 Sodium 136 L (140-148) mmol/L Potassium 4.0 (3.6-5.2) mmol/L Chloride 101 (100-108) mmol/L Carbon Dioxide 27 (21-32) mmol/L Anion Gap 12.0 (5.0-14.0) mmol/L BUN 8 (7-18) mg/dL Creatinine 0.7 (0.6-1.0) mg/dL Est Cr Clr Drug Dosing 79.66 mL/min Estimated GFR (MDRD) > 60 (>60) Glucose 101 (74-106) mg/dL Calcium 8.9 (8.5-10.1) mg/dL Magnesium 1.5 L D (1.8-2.4) mg/dL Lipase 361 (73-393) U/L Med Orders - Current: Current Medications Albuterol (Proventil Neb Soln) 2.5 mg NEB Q4H PRN PRN Reason: Shortness Of Breath/wheezing Albuterol/Ipratropium (Duoneb 3.0-0.5 Mg/3 Ml) 3 ml NEB QID PRN PRN Reason: Shortness Of Breath/wheezing Amlodipine Besylate (Norvasc) 10 mg PO DAILY [facility] Last Admin: 02/11/19 08:08 Dose: 10 mg Bisacodyl (Dulcolax) 5 mg PO DAILY PRN PRN Reason: Constipation Cyclosporine (Restasis) 0 each EYEBOTH BID [facility] Last Admin: 02/11/19 08:08 Dose: 1 drop Docusate Sodium (Colace) 100 mg PO BID PRN PRN Reason: Constipation Enoxaparin Sodium (Lovenox) 40 mg SUBCUT Q24H [facility] Last Admin: 02/11/19 10:31 Dose: 40 mg Escitalopram Oxalate (Lexapro) 20 mg PO DAILY [facility] Last Admin: 02/11/19 08:08 Dose: 20 mg Hydromorphone HCl (Dilaudid) 2 mg PO Q4H PRN PRN Reason: Pain Last Admin: 02/11/19 08:16 Dose: 2 mg Ibuprofen (Motrin) 600 mg PO Q6H PRN PRN Reason: Pain/Fever Lorazepam (Ativan) 0.5 mg IV Q4H PRN PRN Reason: Anxiety Last Admin: 02/11/19 08:16 Dose: 0.5 mg Losartan Potassium (Cozaar) 100 mg PO DAILY [facility] Last Admin: 02/11/19 08:08 Dose: 100 mg Magnesium Oxide (Magnesium Oxide) 400 mg PO BID [facility] Last Admin: 02/11/19 10:31 Dose: 400 mg Ondansetron HCl (Zofran) 4 mg IV Q4H PRN PRN Reason: Nausea/Vomiting Last Admin: 02/10/19 04:24 Dose: 4 mg Ondansetron HCl (Zofran Odt) 4 mg PO Q6H PRN PRN Reason: Nausea Pantoprazole Sodium (Protonix) 40 mg PO ACBREAKFAST [facility] Last Admin: 02/11/19 08:09 Dose: 40 mg Pancreaze 2,600 Unit (Caps (Ptom)) 0 each PO TID [facility] Last Admin: 02/11/19 08:09 Dose: 1 each Sodium Chloride (Saline Flush) 10 ml FLUSH ASDIRECTED PRN PRN Reason: Keep Vein Open Discontinued Medications Hydrocodone Bitart/Acetaminophen ([place] 325-5 Mg) 2 tab PO Q4H PRN PRN Reason: Pain (moderate 4-6) Carvedilol (Coreg) 6.25 mg PO BID [facility] Last Admin: 02/09/19 13:57 Dose: Not Given Diphenhydramine HCl (Benadryl) 25 mg IVPUSH ONETIME ONE Stop: 02/09/19 03:51 Last Admin: 02/09/19 03:55 Dose: 25 mg Diphenhydramine HCl (Benadryl) Confirm Administered Dose 50 mg .ROUTE .STK-MED ONE Stop: 02/09/19 03:51 Last Admin: 02/10/19 08:17 Dose: Not Given Hydromorphone HCl (Dilaudid) 1 mg IVPUSH ONETIME ONE Stop: 02/09/19 03:51 Last Admin: 02/09/19 04:03 Dose: 1 mg Hydromorphone HCl (Dilaudid) 1 mg IVPUSH Q2H PRN PRN Reason: Pain (severe 7-10) Last Admin: 02/10/19 11:42 Dose: 1 mg Hydromorphone HCl (Dilaudid) Confirm Administered Dose 1 mg .ROUTE .STK-MED ONE Stop: 02/09/19 03:51 Last Admin: 02/10/19 08:17 Dose: Not Given Sodium Chloride (Normal Saline) 80 mls @ 3 mls/sec IV ASDIRECTED [facility] Last Admin: 02/09/19 07:40 Dose: 3 mls/sec Sodium Chloride (Normal Saline) 1,000 mls @ 125 mls/hr IV ASDIRECTED [facility] Last Admin: 02/10/19 07:18 Dose: 125 mls/hr Magnesium Sulfate 2 gm/ Premix 50 mls @ 25 mls/hr IV Q6H [facility] Stop: 02/10/19 12:59 Last Admin: 02/10/19 11:07 Dose: 25 mls/hr Potassium Chloride 20 meq/Lidocaine HCl 2 ml/ Sodium Chloride 112 mls @ 56 mls/ hr IV Q2H [facility] Stop: 02/10/19 13:59 Last Admin: 02/10/19 12:55 Dose: 56 mls/hr Magnesium Sulfate 2 gm/ Premix 50 mls @ 25 mls/hr IV ONETIME ONE Stop: 02/11/19 11:59 Last Admin: 02/11/19 10:31 Dose: 25 mls/hr Iopamidol (Isovue-300 (61%)) 100 ml IV . DIRECTED [facility] Last Admin: 02/09/19 07:40 Dose: 100 ml Lorazepam (Ativan) 1 mg IV Q4H PRN PRN Reason: Anxiety Last Admin: 02/09/19 16:53 Dose: 1 mg Lorazepam (Ativan) 1 mg IVPUSH ONETIME ONE Stop: 02/09/19 03:51 Last Admin: 02/09/19 04:01 Dose: 1 mg Lorazepam (Ativan) Confirm Administered Dose 2 mg .ROUTE .STK-MED ONE Stop: 02/09/19 03:52 Last Admin: 02/10/19 08:17 Dose: Not Given Morphine Sulfate (Morphine) 2 mg IVPUSH Q2H PRN PRN Reason: Pain (severe 7-10) Last Admin: 02/09/19 09:17 Dose: 2 mg Ondansetron HCl (Zofran) 4 mg IVPUSH ONETIME ONE Stop: 02/09/19 03:51 Last Admin: 02/09/19 03:59 Dose: 4 mg Ondansetron HCl (Zofran) Confirm Administered Dose 4 mg .ROUTE .STK-MED ONE Stop: 02/09/19 03:51 Last Admin: 02/10/19 08:18 Dose: Not Given Pantoprazole Sodium (Protonix Iv) 40 mg IVPUSH Q12H [facility] Last Admin: 02/10/19 09:02 Dose: 40 mg Potassium Chloride (Klor-Con M20) 40 meq PO ONETIME ONE Stop: 02/10/19 09:31 Last Admin: 02/10/19 09:35 Dose: 40 meq - Exam Quality Assessment: Reports: DVT Prophylaxis General: Reports: Alert, Oriented, Cooperative, No Acute Distress Lungs: Reports: Clear to Auscultation, Normal Respiratory Effort Cardiovascular: Reports: Regular Rate, Regular Rhythm, No Murmurs GI/Abdominal Exam: Soft, Non-Tender, No Organomegaly, No Distention
== END 2019-02-11 13:08 | disposition home or self-care (01) | DRG 440 ==
LOC: JP.ED 03:26 → JP.MS 06:05
PROVIDERS: ADMIT Internal Medicine; ATTEND Hospitalist
DX: K85.90 Acute pancreatitis without necrosis or infection, unspecified (principal); K86.1 Other chronic pancreatitis; I10 Essential (primary) hypertension; F17.200 Nicotine dependence, unspecified, uncomplicated; E87.6 Hypokalemia; I25.10 Atherosclerotic heart disease of native coronary artery without angina pectoris; F10.21 Alcohol dependence, in remission; K52.9 Noninfective gastroenteritis and colitis, unspecified; E83.42 Hypomagnesemia; E78.00 Pure hypercholesterolemia, unspecified; F32.9 Major depressive disorder, single episode, unspecified; F41.9 Anxiety disorder, unspecified; H54.7 Unspecified visual loss; Z88.1 Allergy status to other antibiotic agents; Z91.041 Radiographic dye allergy status; Z88.5 Allergy status to narcotic agent; Z91.018 Allergy to other foods; Z88.2 Allergy status to sulfonamides; Z88.8 Allergy status to other drugs, medicaments and biological substances
CPT/HCPCS: 36415; 74177; 80048; 80053; 80305-QW; 81001; 82150; 83690; 83735; 85025; 96374; 96375; 99285-25; A9270-GY; C9113; J1170; J1200; J1650; J2001; J2060; J2270; J2405; J3475; J3480; J7030; Q9967

== ENCOUNTER 2019-05-14 21:40 | Emergency (ER) | payer MEDICARE ==
[2019-05-15] MEDS ORDERED: Sodium Chloride 0.9% 10 ML Syringe FLUSH PRN (00:08)
[2019-05-15] MEDS ORDERED: LORazepam 2 MG/ML SDV IVPUSH ONE (00:09)
[2019-05-15] MEDS ORDERED: Ondansetron 4 MG/2 ML SDV IVPUSH ONE (00:09)
[2019-05-15] MEDS ORDERED: HYDROmorphone 0.5 MG/0.5 ML Syringe IVPUSH ONE (00:09)
--- NOTE | 2019-05-15 00:11 | EDM.PDOC ---
ED HPI GENERAL MEDICAL PROBLEM - General Chief Complaint: Abdominal Pain Stated Complaint: MID ABDOMINAL PAIN Time Seen by Provider: 05/15/19 00:03 Source of Information: Reports: Patient, RN Notes Reviewed History Limitations: Reports: No Limitations - History of Present Illness INITIAL COMMENTS - FREE TEXT/NARRATIVE: 59-year-old female presents emergency department today complaint of abdominal pain, she has a known history of chronic pancreatitis does have flareups of her pancreatitis from time to time of this particular event started within the last 48 hours has progressively gotten worse she is nauseated, recently had MRI done couple days prior which does show chronic pancreatitis with atrophy upper abdominal Pain Score (Numeric/FACES): 8 - Related Data Allergies Allergy/AdvReac Type Severity Reaction Status Date / Time acetaminophen Allergy Severe Hives Verified 05/14/19 22:56 [From Darvocet-N 100] codeine Allergy Severe Hives Verified 05/14/19 22:56 Iodinated Contrast- Oral and Allergy Severe Cannot Verified 05/14/19 22:56 IV Dye Remember [Iodinated Contrast Media - IV Dye] iodine Allergy Severe Hives Verified 05/14/19 22:56 propoxyphene napsylate Allergy Severe Hives Verified 05/14/19 22:56 [From Darvocet-N 100] Sulfa (Sulfonamide Allergy Severe Hives Verified 05/14/19 22:56 Antibiotics) sulfamethoxazole Allergy Severe Rash Verified 05/14/19 22:56 [From Bactrim] tramadol Allergy Severe Anxiety Verified 05/14/19 22:56 trimethoprim [From Bactrim] Allergy Severe Rash Verified 05/14/19 22:56 barley Allergy Rash Verified 05/14/19 22:56 Home Meds: Home Meds Losartan [Cozaar] 100 mg PO DAILY 06/20/18 [History] Ondansetron [Zofran ODT] 4 mg PO Q6H PRN #7 tab.dis 10/10/18 [Rx] Escitalopram [Lexapro] 20 mg PO DAILY 02/03/19 [History] cycloSPORINE [Restasis] 1 drop EYEBOTH BID 02/03/19 [History] Lipase/Protease/Amylase [Lance Hilario 2,600 Unit Cap] 5,200 units PO TID [History] Omeprazole 40 mg PO DAILY 02/04/19 [History] amLODIPine [Norvasc] 10 mg PO DAILY 02/04/19 [History] Magnesium Oxide 400 mg PO BID #60 tablet 02/11/19 [Rx] Carvedilol 6.25 mg PO BID 05/14/19 [History] Cholecalciferol (Vitamin D3) [Vitamin D3] 2,000 unit PO BID 05/14/19 [History] Hyoscyamine [Levsin] 0.25 mg PO Q4HR PRN 05/14/19 [History] Past Medical History HEENT History: Reports: Impaired Vision Cardiovascular History: Reports: Hypertension Respiratory History: Reports: None Gastrointestinal History: Reports: Cholelithiasis, 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 Genitourinary History: Reports: None 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: Musculoskeletal History: Reports: None Neurological History: Reports: Concussion Psychiatric History: Reports: Addiction, Anxiety, Depression Other Psychiatric History: Zearing Endocrine/Metabolic History: Reports: Diabetes, Type II Hematologic History: Reports: Blood Transfusion(s) Immunologic History: Reports: None Oncologic (Cancer) History: Reports: None - Infectious Disease History Infectious Disease History: Reports: Chicken Pox, Mumps - Past Surgical History Head Surgeries/Procedures: Reports: None HEENT Surgical History: Reports: Tonsillectomy Cardiovascular Surgical History: Reports: None GI Surgical History: Reports: Appendectomy, Cholecystectomy, EGD, ERCP Female Surgical History: Reports: Section Endocrine Surgical History: Reports: None Musculoskeletal Surgical History: Reports: Arthroscopic Knee, Hip Replacement, Knee Replacement, Shoulder Surgery, Other (See Below) Other Musculoskeletal Surgeries/Procedures:: "rotator cuff surgery" Dermatological Surgical History: Reports: None Social & Family History - Family History Family Medical History: Noncontributory HEENT: Reports: None Cardiac: Reports: None Respiratory: Reports: None GI: Reports: 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 : Reports: Pyelonephritis, UTI, Recurrent OBGYN: Reports: None Musculoskeletal: Reports: Arthritis Neurological: Reports: None Psychiatric: Reports: None Endocrine/Metabolic: Reports: Diabetes, type II Hematologic: Reports: None Immunologic: Reports: None Dermatologic: Reports: None Oncologic: Reports: None - Tobacco Use Smoking Status *Q: Current Every Day Smoker Years of Tobacco use: 40 Packs/Tins Daily: 0.5 - Caffeine Use Caffeine Use: Reports: None - Recreational Drug Use Recreational Drug Use: No ED ROS GENERAL - Review of Systems Review Of Systems: See Below Constitutional: Denies: Fever, Chills HEENT: Reports: No Symptoms Respiratory: Reports: No Symptoms Cardiovascular: Reports: No Symptoms GI/Abdominal: Reports: Abdominal Pain, Flatus, Nausea. Denies: Constipation, Diarrhea, Vomiting : Reports: No Symptoms ED EXAM, GI/ABD - Physical Exam Exam: See Below Exam Limited By: No Limitations General Appearance: Alert, Mild Distress Respiratory/Chest: No Respiratory Distress, Lungs Clear, Normal Breath Sounds, No Accessory Muscle Use, Chest Non-Tender Cardiovascular: Regular Rate, Rhythm, No Murmur GI/Abdominal Exam: Soft, Guarding (Left upper quadrant), Tender Course - Vital Signs Last Recorded V/S: Last Vital Signs Temp 96.7 F 05/14/19 23:49 Pulse 77 05/15/19 02:00 Resp 12 05/15/19 02:00 BP 128/71 05/15/19 02:00 Pulse Ox 96 05/15/19 02:00 - Orders/Labs/Meds Orders: Active Orders 24 hr Category Date Time Status Lactated Ringers [Ringers, Lactated] 1,000 ml Med 05/15/19 00:15 Active IV ASDIRECTED Sodium Chloride 0.9% [Saline Flush] Med 05/15/19 00:08 Active 10 ml FLUSH ASDIRECTED PRN Peripheral IV Insertion Adult [OM.PC] Urgent Oth 05/15/19 00:08 Ordered Medication Orders Lactated Ringer's (Ringers, Lactated) 1,000 mls @ 999 mls/hr IV ASDIRECTED GILLIAN Last Admin: 05/15/19 01:01 Dose: 999 mls/hr Sodium Chloride (Saline Flush) 10 ml FLUSH ASDIRECTED PRN PRN Reason: Keep Vein Open Labs: Laboratory Tests 05/15/19 05/15/19 05/15/19 Range/Units 00:35 00:35 00:35 WBC 6.2 (4.5-11.0) K/uL RBC 3.17 L (3.30-5.50) M/uL Hgb 10.7 L (12.0-15.0) g/dL Hct 32.3 L (36.0-48.0) % MCV 102 H (80-98) fL MCH 34 H (27-31) pg MCHC 33 (32-36) % Plt Count 190 (150-400) K/uL Neut % (Auto) 50 (36-66) % Lymph % (Auto) 37 (24-44) % [place]ard % (Auto) 11 H (2-6) % Eos % (Auto) 2 (2-4) % Baso % (Auto) 1 (0-1) % Sodium 135 L (140-148) mmol/L Potassium 3.6 (3.6-5.2) mmol/L Chloride 102 (100-108) mmol/L Carbon Dioxide 25 (21-32) mmol/L Anion Gap 11.6 (5.0-14.0) mmol/L BUN 11 (7-18) mg/dL Creatinine 0.7 (0.6-1.0) mg/dL Est Cr Clr Drug Dosing 78.83 mL/min Estimated GFR (MDRD) > 60 (>60) Glucose 118 H (74-106) mg/dL Lactic Acid 1.4 (0.4-2.0) mmol/L Calcium 9.3 (8.5-10.1) mg/dL Total Bilirubin 1.1 H D (0.2-1.0) mg/dL AST 38 H (15-37) U/L ALT 29 (12-78) U/L Alkaline Phosphatase 195 H D (46-116) U/L Troponin I < 0.017 (0.000-0.056) ng/mL Total Protein 5.9 L (6.4-8.2) g/dL Albumin 3.0 L (3.4-5.0) g/dL Globulin 2.9 (2.3-3.5) g/dL Albumin/Globulin Ratio 1.0 L (1.2-2.2) Lipase 169 (73-393) U/L Urine Color Urine Appearance Urine pH (4.5-8.0) Ur Specific [place] (1.008-1.030) Urine Protein (NEGATIVE) mg/dL Urine Glucose (UA) (NEGATIVE) mg/dL Urine Ketones (NEGATIVE) mg/dL Urine Occult Blood (NEGATIVE) Urine Nitrite (NEGATIVE) Urine Bilirubin (NEGATIVE) Urine Urobilinogen (NORMAL) mg/dL Ur Leukocyte Esterase (NEGATIVE) Urine RBC (0-5) Urine WBC (0-5) Ur Epithelial Cells Amorphous Sediment Urine Bacteria Urine Mucus 05/15/19 Range/Units 02:45 WBC (4.5-11.0) K/uL RBC (3.30-5.50) M/uL Hgb (12.0-15.0) g/dL Hct (36.0-48.0) % MCV (80-98) fL MCH (27-31) pg MCHC (32-36) % Plt Count (150-400) K/uL Neut % (Auto) (36-66) % Lymph % (Auto) (24-44) % Menard % (Auto) (2-6) % Eos % (Auto) (2-4) % Baso % (Auto) (0-1) % Sodium (140-148) mmol/L Potassium (3.6-5.2) mmol/L Chloride (100-108) mmol/L Carbon Dioxide (21-32) mmol/L Anion Gap (5.0-14.0) mmol/L BUN (7-18) mg/dL Creatinine (0.6-1.0) mg/dL Est Cr Clr Drug Dosing mL/min Estimated GFR (MDRD) (>60) Glucose (74-106) mg/dL Lactic Acid (0.4-2.0) mmol/L Calcium (8.5-10.1) mg/dL Total Bilirubin (0.2-1.0) mg/dL AST (15-37) U/L ALT (12-78) U/L Alkaline Phosphatase (46-116) U/L Troponin I (0.000-0.056) ng/mL Total Protein (6.4-8.2) g/dL Albumin (3.4-5.0) g/dL Globulin (2.3-3.5) g/dL Albumin/Globulin Ratio (1.2-2.2) Lipase (73-393) U/L Urine Color Yellow Urine Appearance Slightly cloudy Urine pH 5.0 (4.5-8.0) Ur Specific [place] 1.010 (1.008-1.030) Urine Protein Negative (NEGATIVE) mg/dL Urine Glucose (UA) Normal (NEGATIVE) mg/dL Urine Ketones Negative (NEGATIVE) mg/dL Urine Occult Blood Negative (NEGATIVE) Urine Nitrite Positive H (NEGATIVE) Urine Bilirubin Negative (NEGATIVE) Urine Urobilinogen Normal (NORMAL) mg/dL Ur Leukocyte Esterase Negative (NEGATIVE) Urine RBC 0-5 (0-5) Urine WBC 0-5 (0-5) Ur Epithelial Cells Rare Amorphous Sediment Rare Urine Bacteria Moderate Urine Mucus Not seen Meds: Medications Generic Name Dose Route Start Last Admin Trade Name Evelyn PRN Reason Stop Dose Admin Lactated Ringer's 1,000 mls @ 999 mls/hr 05/15/19 00:15 05/15/19 01:01 Ringers, Lactated IV 999 mls/hr ASDIRECTED GILLIAN Administration Sodium Chloride 10 ml 05/15/19 00:08 Saline Flush FLUSH ASDIRECTED PRN Keep Vein Open Discontinued Medications Generic Name Dose Route Start Last Admin Trade Name Evelyn PRN Reason Stop Dose Admin Hydromorphone HCl 0.5 mg 05/15/19 00:09 05/15/19 01:05 Dilaudid IVPUSH 05/15/19 00:10 0.5 mg ONETIME ONE Administration Lorazepam 0.5 mg 05/15/19 00:09 05/15/19 01:12 Ativan IVPUSH 05/15/19 00:10 0.5 mg ONETIME ONE Administration Ondansetron HCl 4 mg 05/15/19 00:09 05/15/19 01:08 Zofran IVPUSH 05/15/19 00:10 4 mg ONETIME ONE Administration Departure - Departure Time of Disposition: 02:59 Disposition: Home, Self-Care 01 Condition: Poor Clinical Impression: 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 Qualifiers: Chronicity: acute 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 type: other Acute pancreatitis complication: unspecified Qualified Code(s): K85.80 - Other acute pancreatitis without necrosis or infection - Discharge Information Referrals: Obi Alexandre MD [Primary Care Provider] - Forms: ED Department Discharge Additional Instructions: Limiter diet for the next couple days clear liquids, use Percocet as needed for pain control, follow-up with your primary care in the next 2-3 days for reevaluation, call or return to the emergency department worsening of symptoms - My Orders Last 24 Hours: My Active Orders 05/15/19 00:08 Sodium Chloride 0.9% [Saline Flush] 10 ml FLUSH ASDIRECTED PRN Peripheral IV Insertion Adult [OM.PC] Urgent 05/15/19 00:15 Lactated Ringers [Ringers, Lactated] 1,000 ml IV ASDIRECTED - Assessment/Plan Last 24 Hours: My Active Orders 05/15/19 00:08 Sodium Chloride 0.9% [Saline Flush] 10 ml FLUSH ASDIRECTED PRN Peripheral IV Insertion Adult [OM.PC] Urgent 05/15/19 00:15 Lactated Ringers [Ringers, Lactated] 1,000 ml IV ASDIRECTED Plan: Assessment Acuity = acute on chronic Site and laterality = chronic pancreatitis Etiology = unknown Manifestations = abdominal pain Location of injury = Home Lab values = CBC CMP unremarkable lipase is normal Plan Prescription written for Percocet 5/325 one tab by mouth 3 times a day when necessary total #10 for follow-up with her primary care in the next 2-3 days for reevaluation, did talk by hospital admission she declined at this time This note was dictated using [employer] voice recognition software please call with any questions on syntax or grammar.
[2019-05-15] MEDS ORDERED: Lactated Ringers 1,000 ML IV SCH (00:15)
[2019-05-15 02:28] VITALS: BP 128/71; PULSE 77
== END 2019-05-15 03:21 | disposition home or self-care (01) ==
LOC: JP.ED 21:40
DX: K85.80 Other acute pancreatitis without necrosis or infection (principal); I10 Essential (primary) hypertension; F41.9 Anxiety disorder, unspecified; F32.9 Major depressive disorder, single episode, unspecified; E11.9 Type 2 diabetes mellitus without complications; Z88.6 Allergy status to analgesic agent; Z88.5 Allergy status to narcotic agent; Z91.041 Radiographic dye allergy status; Z91.048 Other nonmedicinal substance allergy status; Z88.2 Allergy status to sulfonamides; Z88.1 Allergy status to other antibiotic agents; Z91.018 Allergy to other foods; Z79.899 Other long term (current) drug therapy
CPT/HCPCS: 36415; 80053; 81001; 83605; 83690; 84484; 85025; 96361; 96374; 96375; 99283; J1170; J1642; J2060; J2405; J7120; 99284

== ENCOUNTER 2019-08-31 12:01 | Inpatient (IN) | payer MEDICARE, MEDICAID ==
--- NOTE | 2019-08-31 12:37 | EDM.PDOC ---
ED HPI GENERAL MEDICAL PROBLEM - General Chief Complaint: Abdominal Pain Stated Complaint: ABD PAIN Time Seen by Provider: 08/31/19 12:31 Source of Information: Reports: Patient History Limitations: Reports: No Limitations - History of Present Illness INITIAL COMMENTS - FREE TEXT/NARRATIVE: Patient presents because of sudden onset epigastric region abdominal pain this morning. 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 She was last seen here for pancreatitis in February of this year. She follows with gastroenterology personnel in [facility]. She noticed onset of diarrhea 2 days ago but did not have any abdominal pain until today. No nausea or vomiting yet but that is a frequent concomitant finding when things flare up. No particular exacerbating factors. She is extremely uncomfortable at this time. Onset: Today Location: Reports: Abdomen Quality: Reports: Burning, Dull Severity: Severe Improves with: Reports: None Worsens with: Reports: Breathing Associated Symptoms: Reports: Other (Diarrhea 2 days.) - Related Data Allergies Allergy/AdvReac Type Severity Reaction Status Date / Time acetaminophen Allergy Severe Hives Verified 08/31/19 12:13 [From Darvocet-N 100] codeine Allergy Severe Hives Verified 08/31/19 12:13 Iodinated Contrast Media Allergy Severe Cannot Verified 08/31/19 12:13 [Iodinated Contrast Media - Remember IV Dye] iodine Allergy Severe Hives Verified 08/31/19 12:13 propoxyphene napsylate Allergy Severe Hives Verified 08/31/19 12:13 [From Darvocet-N 100] Sulfa (Sulfonamide Allergy Severe Hives Verified 08/31/19 12:13 Antibiotics) sulfamethoxazole Allergy Severe Rash Verified 08/31/19 12:13 [From Bactrim] tramadol Allergy Severe Anxiety Verified 08/31/19 12:13 trimethoprim [From Bactrim] Allergy Severe Rash Verified 08/31/19 12:13 barley Allergy Rash Verified 08/31/19 12:13 Home Meds: Home Meds Losartan [Cozaar] 100 mg PO DAILY 06/20/18 [History] Ondansetron [Zofran ODT] 4 mg PO Q6H PRN #7 tab.dis 10/10/18 [Rx] Escitalopram [Lexapro] 20 mg PO DAILY 02/03/19 [History] cycloSPORINE [Restasis] 1 drop EYEBOTH BID 02/03/19 [History] Lipase/Protease/Amylase [Pancreaze Dr 2,600 Unit Cap] 5,200 units PO TID [History] Omeprazole 40 mg PO DAILY 02/04/19 [History] amLODIPine [Norvasc] 10 mg PO DAILY 02/04/19 [History] Magnesium Oxide 400 mg PO BID #60 tablet 02/11/19 [Rx] Carvedilol 6.25 mg PO BID 05/14/19 [History] Cholecalciferol (Vitamin D3) [Vitamin D3] 2,000 unit PO BID 05/14/19 [History] Hyoscyamine [Levsin] 0.25 mg PO Q4HR PRN 05/14/19 [History] Potassium Gluconate [Potassium] 1 tab PO BID 08/31/19 [History] Past Medical History HEENT History: Reports: Impaired Vision Cardiovascular History: Reports: Hypertension Respiratory History: Reports: None Gastrointestinal History: Reports: Cholelithiasis, 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 Genitourinary History: Reports: None [employer] History: Reports: Musculoskeletal History: Reports: None Neurological History: Reports: Concussion Psychiatric History: Reports: Addiction, Anxiety, Depression Other Psychiatric History: [place] Endocrine/Metabolic History: Reports: Diabetes, Type II Hematologic History: Reports: Blood Transfusion(s) Immunologic History: Reports: None Oncologic (Cancer) History: Reports: None - Infectious Disease History Infectious Disease History: Reports: Chicken Pox, Mumps - Past Surgical History Head Surgeries/Procedures: Reports: None HEENT Surgical History: Reports: Tonsillectomy Cardiovascular Surgical History: Reports: None GI Surgical History: Reports: Appendectomy, Cholecystectomy, EGD, ERCP Female Surgical History: Reports: Section Endocrine Surgical History: Reports: None Musculoskeletal Surgical History: Reports: Arthroscopic Knee, Hip Replacement, Knee Replacement, Shoulder Surgery, Other (See Below) Other Musculoskeletal Surgeries/Procedures:: "rotator cuff surgery" Dermatological Surgical History: Reports: None Social & Family History - Family History Family Medical History: Noncontributory HEENT: Reports: None Cardiac: Reports: None Respiratory: Reports: None GI: Reports: 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 : Reports: Pyelonephritis, UTI, Recurrent OBGYN: Reports: None Musculoskeletal: Reports: Arthritis Neurological: Reports: None Psychiatric: Reports: None Endocrine/Metabolic: Reports: Diabetes, type II Hematologic: Reports: None Immunologic: Reports: None Dermatologic: Reports: None Oncologic: Reports: None - Tobacco Use Smoking Status *Q: Current Every Day Smoker Years of Tobacco use: 40 Packs/Tins Daily: 0.2 Used Tobacco, but Quit: No Second Hand Smoke Exposure: Yes - Caffeine Use Caffeine Use: Reports: None - Recreational Drug Use Recreational Drug Use: No ED ROS GENERAL - Review of Systems Review Of Systems: See Below Constitutional: Reports: No Symptoms GI/Abdominal: Reports: Abdominal Pain, Diarrhea, Decreased Appetite. Denies: Nausea, Vomiting : Reports: Dysuria Musculoskeletal: Reports: No Symptoms ED EXAM, GI/ABD - Physical Exam Exam: See Below Exam Limited By: No Limitations General Appearance: Moderate Distress GI/Abdominal Exam: Normal Bowel Sounds, Tender (Epigastric pain on palpation.) EKG INTERPRETATION EKG Date: 08/31/19 Time: 13:05 Rhythm: NSR [place]: Normal P-Wave: Present QRS: Normal ST-T: Normal EKG Interpretation Comments: The computer chip reads this as a previous anteroseptal infarct however in V2 and V3 is appeared BS waves rather than Q waves. Course - Vital Signs Last Recorded V/S: Last Vital Signs Temp 36.5 C 08/31/19 17:53 Pulse 64 08/31/19 17:53 Resp 16 08/31/19 17:53 BP 146/77 H 08/31/19 17:53 Pulse Ox 95 08/31/19 17:53 - Orders/Labs/Meds Orders: Active Orders 24 hr Category Date Time Status Patient Status [ADT] Routine ADT 08/31/19 17:39 Active Ambulate [RC] QID Care 08/31/19 17:39 Active Antiembolic Devices [RC] .Routine Care 08/31/19 18:03 Active Height and Weight [RC] DAILY Care 08/31/19 17:39 Active Intake and Output [RC] QSHIFT Care 08/31/19 17:39 Active Notify Provider Vital Signs [RC] ASDIRECTED Care 08/31/19 17:39 Active Oxygen Therapy [RC] PRN Care 08/31/19 17:39 Active Peripheral IV Care [RC] . DIRECTED Care 08/31/19 17:39 Active Up to Chair [RC] QID Care 08/31/19 17:39 Active VTE/DVT Education [RC] Per Unit Routine Care 08/31/19 17:39 Active Vital Signs [RC] Q4H Care 08/31/19 17:39 Active Nothing per Oral Now Diet [DIET] Diet 08/31/19 Dinner Active BASIC METABOLIC PANEL,BMP [CHEM] AM Lab 09/01/19 05:11 Ordered CBC WITH AUTO DIFF [HEME] AM Lab 09/01/19 05:11 Ordered LIPASE [CHEM] Timed Lab 09/01/19 05:00 Ordered MAGNESIUM [CHEM] AM Lab 09/01/19 05:11 Ordered Carvedilol [Coreg] Med 08/31/19 21:00 Active 6.25 mg PO BIDMEALS Escitalopram [Lexapro] Med 09/01/19 09:00 Active 20 mg PO DAILY HYDROmorphone [Dilaudid] Med 08/31/19 17:39 Active 0.5 mg IVPUSH Q4H PRN Losartan [Cozaar] Med 09/01/19 09:00 Active 100 mg PO DAILY Magnesium Oxide Med 08/31/19 21:00 Active 400 mg PO BID Ondansetron [Zofran ODT] Med 08/31/19 17:39 Active 4 mg PO Q6H PRN Pantoprazole [ProTONIX] Med 09/01/19 09:00 Active 40 mg PO DAILY Potassium Chloride Riders [KCL 40 MEQ in Water 100 ML] Med 08/31/19 17:39 Active 40 meq Premix Bag 1 bag IV ONETIME Potassium Gluconate [Potassium] Med 09/01/19 09:00 Pending 1 tab PO BID Sodium Chloride 0.9% [Normal Saline] 1,000 ml Med 08/31/19 17:39 Active IV ASDIRECTED Sodium Chloride 0.9% [Saline Flush] Med 08/31/19 17:39 Active 10 ml FLUSH ASDIRECTED PRN amLODIPine [Norvasc] Med 09/01/19 09:00 Active 10 mg PO DAILY cycloSPORINE [Restasis] Med 08/31/19 21:00 Active 0 each EYEBOTH BID Peripheral IV Insertion Adult [OM.PC] Routine Oth 08/31/19 17:39 Ordered Sequential Compression Device [OM.PC] Routine Oth 08/31/19 18:03 Ordered Resuscitation Status Routine Resus Stat 08/31/19 17:18 Ordered EKG 12 Lead [EK] Routine Ther 08/31/19 12:42 Stop Req Medication Orders Amlodipine Besylate (Norvasc) 10 mg PO DAILY [facility] Carvedilol (Coreg) 6.25 mg PO BIDMEALS [facility] Cyclosporine (Restasis) 0 each EYEBOTH BID [facility] Escitalopram Oxalate (Lexapro) 20 mg PO DAILY [facility] Hydromorphone HCl (Dilaudid) 0.5 mg IVPUSH Q4H PRN PRN Reason: Pain Last Admin: 08/31/19 18:13 Dose: 0.5 mg Potassium Chloride 40 meq/ (Premix) 100 mls @ 25 mls/hr IV ONETIME ONE Stop: 08/31/19 21:38 Sodium Chloride (Normal Saline) 1,000 mls @ 125 mls/hr IV ASDIRECTED [facility] Losartan Potassium (Cozaar) 100 mg PO DAILY [facility] Magnesium Oxide (Magnesium Oxide) 400 mg PO BID [facility] Potassium Gluconate ([Potassium] 1 Tab) 1 tab PO BID [facility] Ondansetron HCl (Zofran Odt) 4 mg PO Q6H PRN PRN Reason: Nausea Pantoprazole Sodium (Protonix) 40 mg PO DAILY [facility] Sodium Chloride (Saline Flush) 10 ml FLUSH ASDIRECTED PRN PRN Reason: Keep Vein Open Labs: Laboratory Tests 08/31/19 08/31/19 Range/Units 12:47 12:47 WBC 6.0 (4.5-11.0) K/uL RBC 4.11 (3.30-5.50) M/uL Hgb 13.6 D (12.0-15.0) g/dL Hct 40.6 (36.0-48.0) % MCV 99 H (80-98) fL MCH 33 H (27-31) pg MCHC 34 (32-36) % Plt Count 217 (150-400) K/uL Neut % (Auto) 62 (36-66) % Lymph % (Auto) 26 (24-44) % Sanders % (Auto) 9 H (2-6) % Eos % (Auto) 2 (2-4) % Baso % (Auto) 1 (0-1) % Sodium 139 L (140-148) mmol/L Potassium 3.3 L (3.6-5.2) mmol/L Chloride 100 (100-108) mmol/L Carbon Dioxide 25 (21-32) mmol/L Anion Gap 17.3 H (5.0-14.0) mmol/L BUN 14 (7-18) mg/dL Creatinine 1.1 H D (0.6-1.0) mg/dL Est Cr Clr Drug Dosing 50.16 mL/min Estimated GFR (MDRD) 51 L (>60) Glucose 148 H (74-106) mg/dL Calcium 9.3 (8.5-10.1) mg/dL Total Bilirubin 1.1 H (0.2-1.0) mg/dL AST 141 H D (15-37) U/L ALT 35 (12-78) U/L Alkaline Phosphatase 220 H (46-116) U/L Troponin I < 0.017 (0.000-0.056) ng/mL Total Protein 6.9 (6.4-8.2) g/dL Albumin 3.5 (3.4-5.0) g/dL Globulin 3.4 (2.3-3.5) g/dL Albumin/Globulin Ratio 1.0 L (1.2-2.2) Lipase 397 H (73-393) U/L Meds: Medications Generic Name Dose Route Start Last Admin Trade Name Freq PRN Reason Stop Dose Admin Amlodipine Besylate 10 mg 09/01/19 09:00 Norvasc PO DAILY [facility] Carvedilol 6.25 mg 08/31/19 21:00 Coreg PO BIDMEALS [facility] Cyclosporine 0 each 08/31/19 21:00 Restasis EYEBOTH BID [facility] Escitalopram Oxalate 20 mg 09/01/19 09:00 Lexapro PO DAILY [facility] Hydromorphone HCl 0.5 mg 08/31/19 17:39 08/31/19 18:13 Dilaudid IVPUSH 0.5 mg Q4H PRN Administration Pain Potassium Chloride 40 meq/ 100 mls @ 25 mls/hr 08/31/19 17:39 Premix IV 08/31/19 21:38 ONETIME ONE Sodium Chloride 1,000 mls @ 125 mls/hr 08/31/19 17:39 Normal Saline IV ASDIRECTED [facility] Losartan Potassium 100 mg 09/01/19 09:00 Cozaar PO DAILY [facility] Magnesium Oxide 400 mg 08/31/19 21:00 Magnesium Oxide PO BID [facility] Potassium Gluconate 1 tab 09/01/19 09:00 [Potassium] 1 Tab PO BID [facility] Ondansetron HCl 4 mg 08/31/19 17:39 Zofran Odt PO Q6H PRN Nausea Pantoprazole Sodium 40 mg 09/01/19 09:00 Protonix PO DAILY [facility] Sodium Chloride 10 ml 08/31/19 17:39 Saline Flush FLUSH ASDIRECTED PRN Keep Vein Open Discontinued Medications Generic Name Dose Route Start Last Admin Trade Name Freq PRN Reason Stop Dose Admin Diphenhydramine HCl 25 mg 08/31/19 13:09 08/31/19 13:18 Benadryl IVPUSH 08/31/19 13:10 25 mg ONETIME ONE Administration Enoxaparin Sodium 40 mg 08/31/19 17:39 Lovenox SUBCUT DAILY [facility] Hydrocortisone Sodium Succinate 100 mg 08/31/19 13:09 08/31/19 13:19 Solu-Cortef IVPUSH 08/31/19 13:10 100 mg ONETIME ONE Administration Hydromorphone HCl 1 mg 08/31/19 12:38 08/31/19 12:54 Dilaudid IVPUSH 08/31/19 12:39 1 mg ONETIME ONE Administration Hydromorphone HCl 1 mg 08/31/19 13:28 08/31/19 14:03 Dilaudid IVPUSH 08/31/19 13:29 1 mg ONETIME ONE Administration Hydromorphone HCl 1 mg 08/31/19 15:32 08/31/19 15:58 Dilaudid IVPUSH 08/31/19 15:33 1 mg ONETIME ONE Administration Sodium Chloride 1,000 mls @ 150 mls/hr 08/31/19 12:45 08/31/19 12:54 Normal Saline IV 150 mls/hr ASDIRECTED [facility] Administration Sodium Chloride 71 mls @ 0 mls/hr 08/31/19 13:15 08/31/19 13:57 Normal Saline IV 3 mls/hr ASDIRECTED [facility] Administration KVO Iopamidol 100 ml 08/31/19 13:15 08/31/19 13:57 Isovue-300 (61%) IV 100 ml . DIRECTED [facility] Administration Ondansetron HCl 4 mg 08/31/19 12:42 08/31/19 12:54 Zofran IVPUSH 08/31/19 12:43 4 mg ONETIME ONE Administration Ondansetron HCl 8 mg 08/31/19 15:33 08/31/19 15:55 Zofran IVPUSH 08/31/19 15:34 8 mg ONETIME ONE Administration Ondansetron HCl 4 mg 08/31/19 17:39 Zofran Odt PO Q6H PRN Nausea able to take PO Sodium Chloride 10 ml 08/31/19 12:45 08/31/19 13:57 Saline Flush IV 10 ml ASDIRECTED [facility] Administration Sodium Chloride 10 ml 08/31/19 13:09 08/31/19 17:59 Saline Flush FLUSH 08/31/19 13:10 Not Given ONETIME ONE - Radiology Interpretation Free Text/Narrative:: CT scan of the abdomen/pelvis with IV contrast ordered by me shows peripancreatic inflammation and edema but nothing suggestive of abscess or pseudocyst. Overall it appears similar to previous scans. Thrombus is noted throughout the portal vein and its branches as well as splenic vein. Arterial system is patent. There is diffuse colon wall edema . This is new since her last scan. - Re-Assessments/Exams Free Text/Narrative Re-Assessment/Exam: 08/31/19 12:47 Patient will receive hydromorphone 1 mg and ondansetron 4 mg, both as IV doses along with normal saline at 150 mL per hour area did she will need a CT scan to assess her abdomen. Possible she may need admission. 08/31/19 18:17 Patient received additional doses of hydromorphone and ondansetron as well as IV fluids. I returned later and reviewed test results which show normal cardiac function which was of significant concern to her. Her lipase is just under 400. Given her symptoms, she will need admission for pancreatitis management. Uncertain what the colon represents at this time. She was improved in comfort but still having ongoing pain. Case was reviewed with Dr. Quinones who will arrange admission and further care. Departure - Departure Time of Disposition: 16:40 Disposition: Admitted As Inpatient 67 Clinical Impression: Portal vein thrombosis, Pancolitis, Diarrhea 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 Qualifiers: Chronicity: acute 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 type: other Acute pancreatitis complication: unspecified Qualified Code(s): K85.80 - Other acute pancreatitis without necrosis or infection - Discharge Information *PRESCRIPTION DRUG MONITORING PROGRAM REVIEWED*: Not Applicable *COPY OF PRESCRIPTION DRUG MONITORING REPORT IN PATIENT DARNELL: Not Applicable - My Orders Last 24 Hours: My Active Orders 08/31/19 12:42 EKG 12 Lead [EK] Routine - Assessment/Plan Last 24 Hours: My Active Orders 08/31/19 12:42 EKG 12 Lead [EK] Routine
[2019-08-31] MEDS ORDERED: HYDROmorphone 1 MG/ML Syringe IVPUSH ONE ×3 (12:38→15:32)
[2019-08-31] MEDS ORDERED: Ondansetron 4 MG/2 ML SDV IVPUSH ONE ×2 (12:42→15:33)
[2019-08-31] MEDS ORDERED: Sodium Chloride 0.9% 10 ML Syringe IV SCH (12:45)
[2019-08-31] MEDS ORDERED: Sodium Chloride 0.9% 1,000 ML IV SCH (12:45)
[2019-08-31] MEDS ORDERED: diphenhydrAMINE 50 MG/ML SDV IVPUSH ONE (13:09)
[2019-08-31] MEDS ORDERED: Sodium Chloride 0.9% 10 ML Syringe FLUSH ONE (13:09)
[2019-08-31] MEDS ORDERED: Hydrocortisone Sodium Succinate 100 MG/2 ML SDV IVPUSH ONE (13:09)
[2019-08-31] MEDS ORDERED: Sodium Chloride 0.9% 71 ML IV SCH (13:15)
[2019-08-31] MEDS ORDERED: Iopamidol 612 MG/ML 100 ML Bottle IV SCH (13:15)
--- NOTE | 2019-08-31 14:57 | CRLCT ---
INDICATION: Epigastric abdomen pain. History of pancreatitis. TECHNIQUE: CT abdomen and pelvis acquired with 100 cc Isovue-300 IV contrast. COMPARISON: February 09, 2019. FINDINGS: Lower chest: Unremarkable. Liver: Diffuse fatty infiltration present. Small irregular area of low attenuation in the lower anterior liver on series 3, image 30 is nonspecific but could represent an infarct. Gallbladder and bile ducts: Status post cholecystectomy. No ductal stone or mass visualized. Pancreas: Moderate amount of inflammation/edema about the pancreas. No fluid collection to suggest abscess or pseudocyst. Small sub centimeter cystic lesion in the pancreatic body on series 3, image 22 appears to be new. No signs of necrosis. Spleen: Unremarkable. Normal in size. No masses. Adrenal glands: Unremarkable. No nodules. Kidneys: Stable cystic lesions. No suspicious mass. No stone and no hydronephrosis. GI tract: Moderate wall edema is present throughout the entire colon. Small bowel is normal in caliber and appearance. Vasculature: New thrombus is present in the portal vein and its branches and also the splenic vein. Mesenteric arteries are patent. Abdominal aorta normal in caliber. Small varices are in the upper abdomen. Lymph nodes: No lymphadenopathy. Omentum/Peritoneum/Abdominal Wall: Unremarkable. No sign of mass or infiltration. No free air or significant free fluid. Pelvis: Unremarkable. Bones: Multilevel spondylosis in the lumbar spine. IMPRESSION: 1. New thrombosis involving the splenic vein, portal vein and its branches. 2. Moderate peripancreatic edema/inflammation is similar to the prior exam. This could represent recurrent or persistent pancreatitis. 3. Moderate diffuse wall edema in the colon consistent with pancolitis of uncertain etiology. 4. New small irregular area of low attenuation in the low anterior right liver lobe could represent a small infarct given the presence of portal vein thrombosis. Results discussed with Dr. Mayes at 1454 hours. Dictated by Kartik Higgins MD @ 08/31/2019 2:51:31 PM Please note that all CT scans at this facility use dose modulation, iterative reconstruction, and/or weight-based dosing when appropriate to reduce radiation dose to as low as reasonably achievable. Dictated by: Kartik Higgins MD @ 08/31/2019 14:54:55 (Electronically Signed)
--- NOTE | 2019-08-31 17:23 | PCM.HP.2 ---
H&P History of Present Illness - General Date of Service: 08/31/19 Admit Problem/Dx: Admission Diagnosis/Problem Admission Diagnosis/Problem 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 Source of Information: Patient, Provider, RN Notes Reviewed History Limitations: Reports: No Limitations - History of Present Illness Initial Comments - Free Text/Narative: Ms. Ma is a 59-year-old woman who was admitted through the emergency department with nausea, abdominal pain, and diarrhea, secondary to acute on chronic pancreatitis and colitis. She has had a long-standing history of recurrent pancreatitis as well as underlying pancreatitis. She has been followed in the Department of gastroenterology at the [facility]. She has had some ongoing difficulty with loose stools and poor appetite. Over the past 3 months appetite is improved and she has gained approximately 16 pounds. She was feeling well until this morning when she developed acute upper abdominal pain radiating to the back. Pain is described as an intense ache as well as sharp pain. Associated with nausea vomiting, she denies precipitating or relieving factors. Also today is developed more frequent watery diarrhea. No pain associated with the diarrhea and she denies fever or chills. Lipase level was only slightly elevated today when seen in the emergency department. CT scan of the abdomen and pelvis shows inflammation around the pancreas, unchanged from previous CT scan. She was also noted to have splenic vein and portal vein thrombosis, patient reports this is not new and was noted at the [place] in July. CT scan documents pancolitis. - Related Data Allergies/Adverse Reactions: Allergies Allergy/AdvReac Type Severity Reaction Status Date / Time acetaminophen Allergy Severe Hives Verified 08/31/19 12:13 [From Darvocet-N 100] codeine Allergy Severe Hives Verified 08/31/19 12:13 Iodinated Contrast Media Allergy Severe Cannot Verified 08/31/19 12:13 [Iodinated Contrast Media - Remember IV Dye] iodine Allergy Severe Hives Verified 08/31/19 12:13 propoxyphene napsylate Allergy Severe Hives Verified 08/31/19 12:13 [From Darvocet-N 100] Sulfa (Sulfonamide Allergy Severe Hives Verified 08/31/19 12:13 Antibiotics) sulfamethoxazole Allergy Severe Rash Verified 08/31/19 12:13 [From Bactrim] tramadol Allergy Severe Anxiety Verified 08/31/19 12:13 trimethoprim [From Bactrim] Allergy Severe Rash Verified 08/31/19 12:13 barley Allergy Rash Verified 08/31/19 12:13 Home Medications: Home Meds Losartan [Cozaar] 100 mg PO DAILY 06/20/18 [History] Ondansetron [Zofran ODT] 4 mg PO Q6H PRN #7 tab.dis 10/10/18 [Rx] Escitalopram [Lexapro] 20 mg PO DAILY 02/03/19 [History] cycloSPORINE [Restasis] 1 drop EYEBOTH BID 02/03/19 [History] Lipase/Protease/Amylase [Pancreaze Dr 2,600 Unit Cap] 5,200 units PO TID [History] Omeprazole 40 mg PO DAILY 02/04/19 [History] amLODIPine [Norvasc] 10 mg PO DAILY 02/04/19 [History] Magnesium Oxide 400 mg PO BID #60 tablet 02/11/19 [Rx] Carvedilol 6.25 mg PO BID 05/14/19 [History] Cholecalciferol (Vitamin D3) [Vitamin D3] 2,000 unit PO BID 05/14/19 [History] Hyoscyamine [Levsin] 0.25 mg PO Q4HR PRN 05/14/19 [History] Potassium Gluconate [Potassium] 1 tab PO BID 08/31/19 [History] Past Medical History HEENT History: Reports: Impaired Vision Cardiovascular History: Reports: Hypertension Respiratory History: Reports: None Gastrointestinal History: Reports: Cholelithiasis, 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 Genitourinary History: Reports: None 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: Musculoskeletal History: Reports: None Neurological History: Reports: Concussion Psychiatric History: Reports: Addiction, Anxiety, Depression Other Psychiatric History: [place] Endocrine/Metabolic History: Reports: Diabetes, Type II Hematologic History: Reports: Blood Transfusion(s) Immunologic History: Reports: None Oncologic (Cancer) History: Reports: None - Infectious Disease History Infectious Disease History: Reports: Chicken Pox, Mumps - Past Surgical History Head Surgeries/Procedures: Reports: None HEENT Surgical History: Reports: Tonsillectomy Cardiovascular Surgical History: Reports: None GI Surgical History: Reports: Appendectomy, Cholecystectomy, EGD, ERCP Female Surgical History: Reports: Section Endocrine Surgical History: Reports: None Musculoskeletal Surgical History: Reports: Arthroscopic Knee, Hip Replacement, Knee Replacement, Shoulder Surgery, Other (See Below) Other Musculoskeletal Surgeries/Procedures:: "rotator cuff surgery" Dermatological Surgical History: Reports: None Social & Family History - Family History Family Medical History: Noncontributory HEENT: Reports: None Cardiac: Reports: None Respiratory: Reports: None GI: Reports: 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 : Reports: Pyelonephritis, UTI, Recurrent OBGYN: Reports: None Musculoskeletal: Reports: Arthritis Neurological: Reports: None Psychiatric: Reports: None Endocrine/Metabolic: Reports: Diabetes, type II Hematologic: Reports: None Immunologic: Reports: None Dermatologic: Reports: None Oncologic: Reports: None - Tobacco Use Smoking Status *Q: Current Every Day Smoker Years of Tobacco use: 40 Packs/Tins Daily: 0.2 Used Tobacco, but Quit: No Second Hand Smoke Exposure: Yes - Caffeine Use Caffeine Use: Reports: None - Recreational Drug Use Recreational Drug Use: No H&P Review of Systems - Review of Systems: Review Of Systems: See Below General: Reports: Malaise, Weakness, Decreased Appetite. Denies: Fever, Chills HEENT: Reports: No Symptoms Pulmonary: Reports: No Symptoms Cardiovascular: Reports: No Symptoms Gastrointestinal: Reports: Abdominal Pain, Diarrhea, Decreased Appetite, Distension, Nausea, Vomiting. Denies: Constipation, Hematochezia, Melena Genitourinary: Reports: No Symptoms Musculoskeletal: Reports: No Symptoms Skin: Reports: No Symptoms Psychiatric: Reports: No Symptoms Neurological: Reports: No Symptoms Hematologic/Lymphatic: Reports: No Symptoms Immunologic: Reports: No Symptoms Exam - Exam Exam: See Below - Vital Signs Vital Signs: Last Vital Signs Temp 97.1 F 08/31/19 12:21 Pulse 82 08/31/19 17:18 Resp 18 08/31/19 17:18 BP 124/67 08/31/19 17:18 Pulse Ox 92 L 08/31/19 14:58 Weight: 151 lb 7.321 oz - Exam General: Alert, Oriented, Cooperative, Moderate Distress HEENT: Conjunctiva Clear, Hearing Intact, Normal Nasal Septum, Posterior Pharynx Clear, Pupils Equal. No: Mucosa Moist & Progress Neck: Supple, Trachea Midline, +2 Carotid Pulse wo Bruit Lungs: Clear to Auscultation, Normal Respiratory Effort Cardiovascular: Regular Rate, Regular Rhythm, Normal S1, Normal S2. No: Systolic Murmur, Diastolic Murmur GI/Abdominal Exam: Soft, No Organomegaly, Distended, Tender. No: Guarding, Rigid, Rebound Back Exam: Normal Inspection, Full Range of Motion Extremities: Non-Tender, No Pedal Edema Skin: Warm, Dry, Intact Neurological: Cranial Nerves Intact, Strength Equal Bilateral, Normal Speech, Normal Tone, Sensation Intact. No: Focal Deficit Neuro Extensive - Mental Status: Alert, Oriented x3, Normal Mood/Affect, Normal Cognition, Memory Intact - Patient Data Lab Results Last 24 hrs: Laboratory Results - last 24 hr 08/31/19 08/31/19 Range/Units 12:47 12:47 WBC 6.0 (4.5-11.0) K/uL RBC 4.11 (3.30-5.50) M/uL Hgb 13.6 D (12.0-15.0) g/dL Hct 40.6 (36.0-48.0) % MCV 99 H (80-98) fL MCH 33 H (27-31) pg MCHC 34 (32-36) % Plt Count 217 (150-400) K/uL Neut % (Auto) 62 (36-66) % Lymph % (Auto) 26 (24-44) % [place] % (Auto) 9 H (2-6) % Eos % (Auto) 2 (2-4) % Baso % (Auto) 1 (0-1) % Sodium 139 L (140-148) mmol/L Potassium 3.3 L (3.6-5.2) mmol/L Chloride 100 (100-108) mmol/L Carbon Dioxide 25 (21-32) mmol/L Anion Gap 17.3 H (5.0-14.0) mmol/L BUN 14 (7-18) mg/dL Creatinine 1.1 H D (0.6-1.0) mg/dL Est Cr Clr Drug Dosing 50.16 mL/min Estimated GFR (MDRD) 51 L (>60) Glucose 148 H (74-106) mg/dL Calcium 9.3 (8.5-10.1) mg/dL Total Bilirubin 1.1 H (0.2-1.0) mg/dL AST 141 H D (15-37) U/L ALT 35 (12-78) U/L Alkaline Phosphatase 220 H (46-116) U/L Troponin I < 0.017 (0.000-0.056) ng/mL Total Protein 6.9 (6.4-8.2) g/dL Albumin 3.5 (3.4-5.0) g/dL Globulin 3.4 (2.3-3.5) g/dL Albumin/Globulin Ratio 1.0 L (1.2-2.2) Lipase 397 H (73-393) U/L Result Diagrams: 08/31/19 12:47 08/31/19 12:47 *Q Meaningful Use (ADM) - VTE Risk Assess *Q Each Risk Factor Represents 1 Point: Age 41 - 59 years Total Score 1 Point Risk Factors: 1 Each Risk Factor Represents 2 Points: None Total Score 2 Point Risk Factors: 0 Each Risk Factor Represents 3 Points: None Total Score 3 Point Risk Factors: 0 Each Risk Factor Represents 5 Points: None Total Score 5 Point Risk Factors: 0 Venous Thromboembolism Risk Factor Score *Q: 1 Problem List Initiated/Reviewed/Updated: Yes Orders Last 24hrs: Active Orders 24 hr Category Date Time Status Patient Status Manage Transfer [TRANSFER] Routine ADT 08/31/19 17:16 Ordered EKG Documentation Completion [RC] ASDIRECTED Care 08/31/19 12:43 Active Iopamidol [Isovue-300 (61%)] Med 08/31/19 13:15 Active 100 ml IV . DIRECTED Sodium Chloride 0.9% [Normal Saline] 1,000 ml Med 08/31/19 12:45 Active IV ASDIRECTED Sodium Chloride 0.9% [Normal Saline] 71 ml Med 08/31/19 13:15 Active IV ASDIRECTED Sodium Chloride 0.9% [Saline Flush] Med 08/31/19 12:45 Active 10 ml IV ASDIRECTED Saline Lock Insert [OM.PC] Routine Oth 08/31/19 12:39 Ordered Resuscitation Status Routine Resus Stat 08/31/19 17:18 Ordered EKG 12 Lead [EK] Routine Ther 08/31/19 12:42 Ordered Medication Orders Sodium Chloride (Normal Saline) 1,000 mls @ 150 mls/hr IV ASDIRECTED [facility] Last Admin: 08/31/19 12:54 Dose: 150 mls/hr Sodium Chloride (Normal Saline) 71 mls @ 0 mls/hr IV ASDIRECTED [facility] Last Admin: 08/31/19 13:57 Dose: 3 mls/hr Iopamidol (Isovue-300 (61%)) 100 ml IV . DIRECTED [facility] Last Admin: 08/31/19 13:57 Dose: 100 ml Sodium Chloride (Saline Flush) 10 ml IV ASDIRECTED [facility] Last Admin: 08/31/19 13:57 Dose: 10 ml Assessment/Plan Comment:: ASSESSMENT AND PLAN PANCREATITIS-history of recurrent episodes as well as underlying chronic pancreatitis. Current pain is very similar to her usual episodes of pancreatitis. Lipase only slightly elevated, peripancreatic inflammation noted on CT scan, unchanged from previous CT scan. -Nothing by mouth -IV fluids for hydration -Pain and nausea medication as needed -Follow-up lipase level in a.m. PANCOLITIS-densified on CT scan, no previous history of chronic colitis, she reports that she often has diarrhea associated with her episodes of pancreatitis. She has been afebrile with a normal white blood cell count. Increase in diarrhea as of abrupt onset occurring just today. -Hold on antibiotic therapy -Symptomatic management -Reassess in a.m. MAINTENANCE ISSUES -DVT prophylaxis; SCUDS -GI prophylaxis; continue outpatient PPI therapy -Colon catheter; not indicated -Nutrition; nothing by mouth -Nicotine dependence; not required CODE STATUS-FULL CODE ADMISSION STATUS-patient will be admitted to inpatient status, expect at least a 2 night hospital stay for evaluation and management of problems as outlined above. At the time of this admission I do not reasonably expected evaluation and management of this problem will require more than a 96 hour hospital stay. DISPOSITION-anticipate discharge to home after the hospital stay. PRIMARY CARE PROVIDER-Dr. Alexandre - Mortality Measure Prognosis:: Good
[2019-08-31] MEDS ORDERED: Ondansetron 4 MG Tab.DIS PO PRN ×2 (17:39)
[2019-08-31] MEDS ORDERED: Potassium Chloride Riders 40 MEQ in Premix Bag 1 BAG IV ONE (17:39)
[2019-08-31] MEDS ORDERED: HYDROmorphone 0.5 MG/0.5 ML Syringe IVPUSH PRN ×2 (17:39→19:50)
[2019-08-31] MEDS ORDERED: Enoxaparin 40 MG/0.4 ML Syringe SUBCUT SCH (17:39)
[2019-08-31] MEDS ORDERED: Potassium Chloride 20 MEQ in Premix Bag 1 BAG IV ONE (18:21)
[2019-08-31] MEDS: HYDROmorphone 1 MG/ML Syringe IVPUSH PRN ×2 (20:40→22:49)
[2019-08-31] MEDS: Carvedilol 6.25 MG Tab PO SCH (22:06)
[2019-08-31] MEDS: Magnesium Oxide 400 MG Tab PO SCH (22:06)
[2019-08-31] MEDS: cycloSPORINE Ophth Drops U/D Box of 30 EYEBOTH SCH (22:08)
[2019-08-31] MEDS: Potassium Chloride 20 MEQ in Premix Bag 1 BAG IV ONE ×2 (22:51)
[2019-09-01] MEDS: Sodium Chloride 0.9% 1,000 ML IV SCH ×2 (01:18→09:25)
[2019-09-01] MEDS: HYDROmorphone 1 MG/ML Syringe IVPUSH PRN ×3 (01:34→09:26)
[2019-09-01] MEDS: LORazepam 2 MG/ML SDV IVPUSH PRN ×2 (01:44→14:01)
[2019-09-01] MEDS: Ondansetron 4 MG Tab.DIS PO PRN (07:12)
[2019-09-01] MEDS ORDERED: POTASSIUM GLUCONATE PO SCH (09:00)
[2019-09-01] MEDS: Carvedilol 6.25 MG Tab PO SCH ×2 (09:19→17:42)
[2019-09-01] MEDS: Escitalopram 20 MG Tab PO SCH (09:21)
[2019-09-01] MEDS: amLODIPine 10 MG Tab PO SCH (09:21)
[2019-09-01] MEDS: Magnesium Oxide 400 MG Tab PO SCH ×2 (09:21→20:47)
[2019-09-01] MEDS: Losartan 50 MG Tab PO SCH (09:21)
[2019-09-01] MEDS: Pantoprazole 40 MG Tab.CR PO SCH (09:21)
--- NOTE | 2019-09-01 10:25 | PCM.PN ---
- General Info Date of Service: 09/01/19 Subjective Update: There were no acute events overnight. Patient reports that her pain is stable but not dramatically better than yesterday evening. No significant nausea and her appetite is returning. She has diarrhea but she does not think it's dramatically different than usual. She did not have any fevers. White count remains normal. Lipase level is normal. Functional Status: Denies: Pain Controlled, Tolerating Diet - Review of Systems General: Denies: Fever Gastrointestinal: Reports: Abdominal Pain, Diarrhea - Patient Data Vitals - Most Recent: Last Vital Signs Temp 36.1 C 09/01/19 07:00 Pulse 61 09/01/19 09:19 Resp 18 09/01/19 07:00 BP 143/73 H 09/01/19 09:21 Pulse Ox 93 L 09/01/19 07:00 Weight - Most Recent: 68.7 kg I&O - Last 24 Hours: Intake & Output 08/31/19 09/01/19 09/01/19 22:59 06:59 14:59 Intake Total 100 1500 Output Total 4 Balance 100 1496 Lab Results Last 24 Hours: Laboratory Results - last 24 hr 08/31/19 08/31/19 09/01/19 Range/Units 12:47 12:47 06:04 WBC 6.0 (4.5-11.0) K/uL RBC 4.11 (3.30-5.50) M/uL Hgb 13.6 D (12.0-15.0) g/dL Hct 40.6 (36.0-48.0) % MCV 99 H (80-98) fL MCH 33 H (27-31) pg MCHC 34 (32-36) % Plt Count 217 (150-400) K/uL Neut % (Auto) 62 (36-66) % Lymph % (Auto) 26 (24-44) % [place] % (Auto) 9 H (2-6) % Eos % (Auto) 2 (2-4) % Baso % (Auto) 1 (0-1) % Sodium 139 L (140-148) mmol/L Potassium 3.3 L (3.6-5.2) mmol/L Chloride 100 (100-108) mmol/L Carbon Dioxide 25 (21-32) mmol/L Anion Gap 17.3 H (5.0-14.0) mmol/L BUN 14 (7-18) mg/dL Creatinine 1.1 H D (0.6-1.0) mg/dL Est Cr Clr Drug Dosing 50.16 mL/min Estimated GFR (MDRD) 51 L (>60) Glucose 148 H (74-106) mg/dL Calcium 9.3 (8.5-10.1) mg/dL Magnesium (1.8-2.4) mg/dL Total Bilirubin 1.1 H (0.2-1.0) mg/dL AST 141 H D (15-37) U/L ALT 35 (12-78) U/L Alkaline Phosphatase 220 H (46-116) U/L Troponin I < 0.017 (0.000-0.056) ng/mL Total Protein 6.9 (6.4-8.2) g/dL Albumin 3.5 (3.4-5.0) g/dL Globulin 3.4 (2.3-3.5) g/dL Albumin/Globulin Ratio 1.0 L (1.2-2.2) Lipase 397 H 170 (73-393) U/L 09/01/19 09/01/19 Range/Units 06:04 06:04 WBC 5.2 (4.5-11.0) K/uL RBC 3.55 (3.30-5.50) M/uL Hgb 11.5 L D (12.0-15.0) g/dL Hct 36.4 (36.0-48.0) % MCV 103 H (80-98) fL MCH 32 H (27-31) pg MCHC 32 (32-36) % Plt Count 180 (150-400) K/uL Neut % (Auto) 61 (36-66) % Lymph % (Auto) 26 (24-44) % [place] % (Auto) 13 H (2-6) % Eos % (Auto) 0 L (2-4) % Baso % (Auto) 0 (0-1) % Sodium 138 L (140-148) mmol/L Potassium 4.7 (3.6-5.2) mmol/L Chloride 104 (100-108) mmol/L Carbon Dioxide 27 (21-32) mmol/L Anion Gap 11.7 (5.0-14.0) mmol/L BUN 15 (7-18) mg/dL Creatinine 1.4 H (0.6-1.0) mg/dL Est Cr Clr Drug Dosing 39.41 mL/min Estimated GFR (MDRD) 39 L (>60) Glucose 118 H (74-106) mg/dL Calcium 8.3 L (8.5-10.1) mg/dL Magnesium 1.3 L (1.8-2.4) mg/dL Total Bilirubin (0.2-1.0) mg/dL AST (15-37) U/L ALT (12-78) U/L Alkaline Phosphatase (46-116) U/L Troponin I (0.000-0.056) ng/mL Total Protein (6.4-8.2) g/dL Albumin (3.4-5.0) g/dL Globulin (2.3-3.5) g/dL Albumin/Globulin Ratio (1.2-2.2) Lipase (73-393) U/L Med Orders - Current: Current Medications Amlodipine Besylate (Norvasc) 10 mg PO DAILY [facility] Last Admin: 09/01/19 09:21 Dose: 10 mg Carvedilol (Coreg) 6.25 mg PO BIDMEALS [facility] Last Admin: 09/01/19 09:19 Dose: 6.25 mg Cyclosporine (Restasis) 0 each EYEBOTH BID [facility] Escitalopram Oxalate (Lexapro) 20 mg PO DAILY [facility] Last Admin: 09/01/19 09:21 Dose: 20 mg Hydromorphone HCl (Dilaudid) 1 mg IVPUSH Q2H PRN PRN Reason: Pain (severe 7-10) Last Admin: 09/01/19 09:26 Dose: 1 mg Hydromorphone HCl (Dilaudid) 0.5 mg IVPUSH Q2H PRN PRN Reason: Pain (moderate 4-6) Lorazepam (Ativan) 1 mg IVPUSH Q4H PRN PRN Reason: Nausea/Vomiting Last Admin: 09/01/19 01:44 Dose: 1 mg Losartan Potassium (Cozaar) 100 mg PO DAILY [facility] Last Admin: 09/01/19 09:21 Dose: 100 mg Magnesium Oxide (Magnesium Oxide) 400 mg PO BID [facility] Last Admin: 09/01/19 09:21 Dose: 400 mg Potassium Gluconate [Potassium] 1 Tab Pom 1 tab PO BID [facility] Ondansetron HCl (Zofran Odt) 8 mg PO Q8H PRN PRN Reason: Nausea/Vomiting Last Admin: 09/01/19 07:12 Dose: 8 mg Pantoprazole Sodium (Protonix) 40 mg PO DAILY@0730 [facility] Last Admin: 09/01/19 09:21 Dose: 40 mg Sodium Chloride (Saline Flush) 10 ml FLUSH ASDIRECTED PRN PRN Reason: Keep Vein Open Discontinued Medications Cyclosporine (Restasis) 0 each EYEBOTH BID [facility] Last Admin: 08/31/19 22:08 Dose: Not Given Diphenhydramine HCl (Benadryl) 25 mg IVPUSH ONETIME ONE Stop: 08/31/19 13:10 Last Admin: 08/31/19 13:18 Dose: 25 mg Enoxaparin Sodium (Lovenox) 40 mg SUBCUT DAILY [facility] Last Admin: 08/31/19 21:54 Dose: Not Given Hydrocortisone Sodium Succinate (Solu-Cortef) 100 mg IVPUSH ONETIME ONE Stop: 08/31/19 13:10 Last Admin: 08/31/19 13:19 Dose: 100 mg Hydromorphone HCl (Dilaudid) 1 mg IVPUSH ONETIME ONE Stop: 08/31/19 12:39 Last Admin: 08/31/19 12:54 Dose: 1 mg Hydromorphone HCl (Dilaudid) 1 mg IVPUSH ONETIME ONE Stop: 08/31/19 13:29 Last Admin: 08/31/19 14:03 Dose: 1 mg Hydromorphone HCl (Dilaudid) 1 mg IVPUSH ONETIME ONE Stop: 08/31/19 15:33 Last Admin: 08/31/19 15:58 Dose: 1 mg Hydromorphone HCl (Dilaudid) 0.5 mg IVPUSH Q4H PRN PRN Reason: Pain Last Admin: 08/31/19 18:13 Dose: 0.5 mg Hydromorphone HCl (Dilaudid) 0.5 mg IVPUSH Q2H PRN PRN Reason: Pain (moderate 4-6) Sodium Chloride (Normal Saline) 1,000 mls @ 150 mls/hr IV ASDIRECTED [facility] Last Admin: 08/31/19 12:54 Dose: 150 mls/hr Sodium Chloride (Normal Saline) 71 mls @ 0 mls/hr IV ASDIRECTED [facility] Last Admin: 08/31/19 13:57 Dose: 3 mls/hr Potassium Chloride 40 meq/ (Premix) 100 mls @ 25 mls/hr IV ONETIME ONE Stop: 08/31/19 21:38 Last Admin: 08/31/19 21:54 Dose: Not Given Sodium Chloride (Normal Saline) 1,000 mls @ 125 mls/hr IV ASDIRECTED [facility] Last Admin: 09/01/19 09:25 Dose: 125 mls/hr Potassium Chloride 20 meq/ (Premix) 100 mls @ 50 mls/hr IV ONETIME ONE Stop: 08/31/19 20:20 Last Admin: 08/31/19 18:39 Dose: 50 mls/hr Potassium Chloride 20 meq/ (Premix) 100 mls @ 50 mls/hr IV ONETIME ONE Stop: 08/31/19 22:29 Last Admin: 08/31/19 22:51 Dose: 50 mls/hr Iopamidol (Isovue-300 (61%)) 100 ml IV . DIRECTED [facility] Last Admin: 08/31/19 13:57 Dose: 100 ml Lidocaine HCl (Xylocaine-Mpf 1%) 5 ml INJECT ONETIME ONE Stop: 08/31/19 18:16 Last Admin: 08/31/19 18:39 Dose: 5 ml Ondansetron HCl (Zofran) 4 mg IVPUSH ONETIME ONE Stop: 08/31/19 12:43 Last Admin: 08/31/19 12:54 Dose: 4 mg Ondansetron HCl (Zofran) 8 mg IVPUSH ONETIME ONE Stop: 08/31/19 15:34 Last Admin: 08/31/19 15:55 Dose: 8 mg Ondansetron HCl (Zofran Odt) 4 mg PO Q6H PRN PRN Reason: Nausea Last Admin: 08/31/19 18:21 Dose: 4 mg Ondansetron HCl (Zofran Odt) 4 mg PO Q6H PRN PRN Reason: Nausea able to take PO Sodium Chloride (Saline Flush) 10 ml IV ASDIRECTED [facility] Last Admin: 08/31/19 13:57 Dose: 10 ml Sodium Chloride (Saline Flush) 10 ml FLUSH ONETIME ONE Stop: 08/31/19 13:10 Last Admin: 08/31/19 17:59 Dose: Not Given - Exam Quality Assessment: No: Supplemental Oxygen General: Alert, Oriented, Cooperative, Mild Distress Lungs: Normal Respiratory Effort GI/Abdominal Exam: Soft, No Distention, Tender Extremities: No Pedal Edema. No: Increased Warmth Skin: Warm, Dry Psy/Mental Status: Alert, Normal Affect - Problem List Review Problem List Initiated/Reviewed/Updated: Yes - My Orders Last 24 Hours: My Active Orders 09/01/19 10:22 HYDROmorphone [Dilaudid] 4 mg PO Q3H PRN 09/01/19 10:30 Magnesium Sulfate/Water [Magnesium Sulfate in Water Premix] 2 gm Premix Bag 1 bag IV Q6H Sodium Chloride 0.9% [Normal Saline] 1,000 ml IV ASDIRECTED 09/01/19 Lunch Clear Liquid Diet [DIET] 09/02/19 05:00 BASIC METABOLIC PANEL,BMP [CHEM] Timed CBC W/O DIFF,HEMOGRAM [HEME] Timed (1) - Plan Plan:: ASSESSMENT AND PLAN PANCREATITIS, ACUTE ON CHRONIC - history of recurrent episodes as well as underlying chronic pancreatitis. Still having a fair amount of pain but lipase level is normal. Appetite is improving. -Clear liquids -Gentle IV fluids for hydration -Pain and nausea medication as needed PANCOLITIS - identified on CT scan, no previous history of chronic colitis. Still having some pain. Diarrhea seems to be at baseline. No fevers. White count normal. Suspect viral enteritis type picture. -Hold on antibiotic therapy -Symptomatic management -Reassess in a.m. MAINTENANCE ISSUES -DVT prophylaxis; SCUDS -GI prophylaxis; continue outpatient PPI therapy -Colon catheter; not indicated -Nutrition; clear liquids DISPOSITION - anticipate discharge to home after the hospital stay. Edilberto Guerrero M.D.
[2019-09-01] MEDS ORDERED: Sodium Chloride 0.9% 1,000 ML IV SCH (10:30)
[2019-09-01] MEDS: HYDROmorphone 2 MG Tab PO PRN ×3 (11:20→22:11)
[2019-09-01] MEDS: Magnesium Sulfate/Water 2 GM in Premix Bag 1 BAG IV SCH ×3 (11:22→23:10)
[2019-09-01] MEDS: HYDROmorphone 0.5 MG/0.5 ML Syringe IVPUSH PRN ×4 (14:04→23:17)
[2019-09-01] MEDS: cycloSPORINE Ophth Drops U/D Box of 30 EYEBOTH SCH ×2 (17:02→20:48)
[2019-09-02] MEDS: HYDROmorphone 2 MG Tab PO PRN ×5 (02:26→21:37)
[2019-09-02] MEDS: Magnesium Sulfate/Water 2 GM in Premix Bag 1 BAG IV SCH (05:44)
[2019-09-02] MEDS: Pantoprazole 40 MG Tab.CR PO SCH (07:18)
[2019-09-02] MEDS: Carvedilol 6.25 MG Tab PO SCH ×2 (07:18→18:34)
[2019-09-02] MEDS: Escitalopram 20 MG Tab PO SCH (09:52)
[2019-09-02] MEDS: Magnesium Oxide 400 MG Tab PO SCH ×2 (09:52→20:44)
[2019-09-02] MEDS: cycloSPORINE Ophth Drops U/D Box of 30 EYEBOTH SCH ×2 (09:54→20:44)
[2019-09-02] MEDS: HYDROmorphone 1 MG/ML Syringe IVPUSH PRN ×3 (11:25→22:51)
[2019-09-02] MEDS: Losartan 50 MG Tab PO SCH (11:27)
[2019-09-02] MEDS: amLODIPine 10 MG Tab PO SCH (11:27)
--- NOTE | 2019-09-02 11:38 | PCM.PN ---
- General Info Date of Service: 09/02/19 Subjective Update: There were no acute events overnight. The patient reports that her pain is still not well controlled and she has ongoing generalized abdominal pain. She continues to have diarrhea that is slightly worse than baseline. When her pain gets bad she has some nausea but has not vomited. She has been able to tolerate her full liquids without vomiting. Laboratory studies fairly unremarkable. Vital signs have been stable. She has not had any fevers. Functional Status: Reports: Tolerating Diet. Denies: Pain Controlled - Review of Systems General: Denies: Fever Gastrointestinal: Reports: Abdominal Pain, Diarrhea, Nausea - Patient Data Vitals - Most Recent: Last Vital Signs Temp 36.2 C 09/02/19 09:53 Pulse 60 09/02/19 09:53 Resp 18 09/02/19 09:53 BP 98/55 L 09/02/19 11:27 Pulse Ox 91 L 09/02/19 09:53 Weight - Most Recent: 68.7 kg I&O - Last 24 Hours: Intake & Output 09/01/19 09/02/19 09/02/19 22:59 06:59 14:59 Intake Total 2233 693 Output Total 250 Balance 1983 693 Lab Results Last 24 Hours: Laboratory Results - last 24 hr 09/02/19 09/02/19 Range/Units 06:00 06:00 WBC 4.9 (4.5-11.0) K/uL RBC 3.25 L (3.30-5.50) M/uL Hgb 10.9 L (12.0-15.0) g/dL Hct 34.3 L (36.0-48.0) % MCV 106 H (80-98) fL MCH 34 H (27-31) pg MCHC 32 (32-36) % Plt Count 147 L (150-400) K/uL Sodium 139 L (140-148) mmol/L Potassium 4.1 (3.6-5.2) mmol/L Chloride 106 (100-108) mmol/L Carbon Dioxide 24 (21-32) mmol/L Anion Gap 13.1 (5.0-14.0) mmol/L BUN 15 (7-18) mg/dL Creatinine 1.6 H (0.6-1.0) mg/dL Est Cr Clr Drug Dosing 34.49 mL/min Estimated GFR (MDRD) 33 L (>60) Glucose 80 (74-106) mg/dL Calcium 9.0 (8.5-10.1) mg/dL Med Orders - Current: Current Medications Amlodipine Besylate (Norvasc) 10 mg PO DAILY [facility] Last Admin: 09/02/19 11:27 Dose: Not Given Carvedilol (Coreg) 6.25 mg PO BIDMEALS [facility] Last Admin: 09/02/19 07:18 Dose: 6.25 mg Cyclosporine (Restasis) 0 each EYEBOTH BID [facility] Last Admin: 09/02/19 09:54 Dose: 1 drop Escitalopram Oxalate (Lexapro) 20 mg PO DAILY [facility] Last Admin: 09/02/19 09:52 Dose: 20 mg Hydromorphone HCl (Dilaudid) 1 mg IVPUSH Q2H PRN PRN Reason: Pain (severe 7-10) Last Admin: 09/02/19 11:25 Dose: 1 mg Hydromorphone HCl (Dilaudid) 0.5 mg IVPUSH Q2H PRN PRN Reason: Pain (moderate 4-6) Last Admin: 09/01/19 23:17 Dose: 0.5 mg Hydromorphone HCl (Dilaudid) 4 mg PO Q3H PRN PRN Reason: Pain (moderate 4-6) Last Admin: 09/02/19 07:39 Dose: 4 mg Lorazepam (Ativan) 1 mg IVPUSH Q4H PRN PRN Reason: Nausea/Vomiting Last Admin: 09/01/19 14:01 Dose: 1 mg Losartan Potassium (Cozaar) 100 mg PO DAILY [facility] Last Admin: 09/02/19 11:27 Dose: Not Given Magnesium Oxide (Magnesium Oxide) 400 mg PO BID [facility] Last Admin: 09/02/19 09:52 Dose: 400 mg Ondansetron HCl (Zofran Odt) 8 mg PO Q8H PRN PRN Reason: Nausea/Vomiting Last Admin: 09/01/19 07:12 Dose: 8 mg Pantoprazole Sodium (Protonix) 40 mg PO DAILY@0730 [facility] Last Admin: 09/02/19 07:18 Dose: 40 mg Sodium Chloride (Saline Flush) 10 ml FLUSH ASDIRECTED PRN PRN Reason: Keep Vein Open Discontinued Medications Cyclosporine (Restasis) 0 each EYEBOTH BID [facility] Last Admin: 11/18/19 17:02 Dose: Not Given Diphenhydramine HCl (Benadryl) 25 mg IVPUSH ONETIME ONE Stop: 08/31/19 13:10 Last Admin: 08/31/19 13:18 Dose: 25 mg Enoxaparin Sodium (Lovenox) 40 mg SUBCUT DAILY [facility] Last Admin: 08/31/19 21:54 Dose: Not Given Hydrocortisone Sodium Succinate (Solu-Cortef) 100 mg IVPUSH ONETIME ONE Stop: 08/31/19 13:10 Last Admin: 08/31/19 13:19 Dose: 100 mg Hydromorphone HCl (Dilaudid) 1 mg IVPUSH ONETIME ONE Stop: 08/31/19 12:39 Last Admin: 08/31/19 12:54 Dose: 1 mg Hydromorphone HCl (Dilaudid) 1 mg IVPUSH ONETIME ONE Stop: 08/31/19 13:29 Last Admin: 08/31/19 14:03 Dose: 1 mg Hydromorphone HCl (Dilaudid) 1 mg IVPUSH ONETIME ONE Stop: 08/31/19 15:33 Last Admin: 08/31/19 15:58 Dose: 1 mg Hydromorphone HCl (Dilaudid) 0.5 mg IVPUSH Q4H PRN PRN Reason: Pain Last Admin: 08/31/19 18:13 Dose: 0.5 mg Hydromorphone HCl (Dilaudid) 0.5 mg IVPUSH Q2H PRN PRN Reason: Pain (moderate 4-6) Sodium Chloride (Normal Saline) 1,000 mls @ 150 mls/hr IV ASDIRECTED [facility] Last Admin: 08/31/19 12:54 Dose: 150 mls/hr Sodium Chloride (Normal Saline) 71 mls @ 0 mls/hr IV ASDIRECTED [facility] Last Admin: 08/31/19 13:57 Dose: 3 mls/hr Potassium Chloride 40 meq/ (Premix) 100 mls @ 25 mls/hr IV ONETIME ONE Stop: 08/31/19 21:38 Last Admin: 08/31/19 21:54 Dose: Not Given Sodium Chloride (Normal Saline) 1,000 mls @ 125 mls/hr IV ASDIRECTED [facility] Last Admin: 09/01/19 09:25 Dose: 125 mls/hr Potassium Chloride 20 meq/ (Premix) 100 mls @ 50 mls/hr IV ONETIME ONE Stop: 08/31/19 20:20 Last Admin: 08/31/19 18:39 Dose: 50 mls/hr Potassium Chloride 20 meq/ (Premix) 100 mls @ 50 mls/hr IV ONETIME ONE Stop: 08/31/19 22:29 Last Admin: 08/31/19 22:51 Dose: 50 mls/hr Magnesium Sulfate 2 gm/ Premix 50 mls @ 25 mls/hr IV Q6H [facility] Stop: 09/02/19 06:59 Last Admin: 09/02/19 05:44 Dose: 25 mls/hr Sodium Chloride (Normal Saline) 1,000 mls @ 50 mls/hr IV ASDIRECTED [facility] Last Admin: 09/01/19 17:10 Dose: 50 mls/hr Iopamidol (Isovue-300 (61%)) 100 ml IV . DIRECTED [facility] Last Admin: 08/31/19 13:57 Dose: 100 ml Lidocaine HCl (Xylocaine-Mpf 1%) 5 ml INJECT ONETIME ONE Stop: 08/31/19 18:16 Last Admin: 08/31/19 18:39 Dose: 5 ml Potassium Gluconate [Potassium] 1 Tab Pom 1 tab PO BID [facility] Last Admin: 09/01/19 10:26 Dose: Not Given Ondansetron HCl (Zofran) 4 mg IVPUSH ONETIME ONE Stop: 08/31/19 12:43 Last Admin: 08/31/19 12:54 Dose: 4 mg Ondansetron HCl (Zofran) 8 mg IVPUSH ONETIME ONE Stop: 08/31/19 15:34 Last Admin: 08/31/19 15:55 Dose: 8 mg Ondansetron HCl (Zofran Odt) 4 mg PO Q6H PRN PRN Reason: Nausea Last Admin: 08/31/19 18:21 Dose: 4 mg Ondansetron HCl (Zofran Odt) 4 mg PO Q6H PRN PRN Reason: Nausea able to take PO Sodium Chloride (Saline Flush) 10 ml IV ASDIRECTED [facility] Last Admin: 08/31/19 13:57 Dose: 10 ml Sodium Chloride (Saline Flush) 10 ml FLUSH ONETIME ONE Stop: 08/31/19 13:10 Last Admin: 08/31/19 17:59 Dose: Not Given - Exam Quality Assessment: No: Supplemental Oxygen General: Alert, Oriented, Cooperative, No Acute Distress Lungs: Normal Respiratory Effort Cardiovascular: Regular Rate, Regular Rhythm GI/Abdominal Exam: Soft, No Distention, Tender Extremities: Pedal Edema (trace bilateral ankle edema ) Psy/Mental Status: Alert, Normal Affect - Problem List Review Problem List Initiated/Reviewed/Updated: Yes - My Orders Last 24 Hours: My Active Orders 09/02/19 11:36 Antiembolic Devices [RC] .Routine Convert IV to Saline Lock [OM.PC] Routine MARY Hose [Antiembolic Hose] [OM.PC] Routine 09/02/19 12:00 methylPREDNISolone Sod Succ [Solu-MEDROL] 125 mg IVPUSH ONETIME ONE 09/02/19 20:00 methylPREDNISolone Sod Succ [Solu-MEDROL] 62.5 mg IVPUSH Q8H 09/02/19 Lunch Full Liquid Diet [DIET] 09/03/19 05:00 CBC W/O DIFF,HEMOGRAM [HEME] Timed (1) COMPREHENSIVE METABOLIC PN,CMP [CHEM] Timed - Plan Plan:: ASSESSMENT AND PLAN PANCREATITIS, ACUTE ON CHRONIC - history of recurrent episodes as well as underlying chronic pancreatitis. Epigastric pain is improving. Lipase was normal yesterday. Tolerating clear liquids. -Full liquids -Saline lock IV -Pain and nausea medication as needed PANCOLITIS - identified on CT scan, no previous history of chronic colitis. Most prominent symptom at this time his pain but she is also having a fair amount of diarrhea. Still suspect viral syndrome or possibly temporary inflammatory type situation. -Trial of steroids -Hold on antibiotic therapy -Symptomatic management -Reassess in a.m. MAINTENANCE ISSUES -DVT prophylaxis; SCUDS -GI prophylaxis; continue outpatient PPI therapy -Colon catheter; not indicated -Nutrition; full liquids DISPOSITION - anticipate discharge to home after the hospital stay. Edilberto Guerrero M.D.
[2019-09-02] MEDS ORDERED: methylPREDNISolone Sodium Succinate 125 MG/2 ML SDV IVPUSH ONE (12:00)
[2019-09-02] MEDS ORDERED: Furosemide 20 MG/2 ML VIAL IVPUSH ONE (19:37)
[2019-09-02] MEDS: methylPREDNISolone Sodium Succinate 125 MG/2 ML SDV IVPUSH SCH (19:52)
[2019-09-02] MEDS: LORazepam 2 MG/ML SDV IVPUSH PRN (20:44)
[2019-09-03] MEDS: LORazepam 2 MG/ML SDV IVPUSH PRN (04:06)
[2019-09-03] MEDS: methylPREDNISolone Sodium Succinate 125 MG/2 ML SDV IVPUSH SCH ×3 (04:11→20:09)
[2019-09-03] MEDS: HYDROmorphone 2 MG Tab PO PRN ×4 (08:15→22:38)
[2019-09-03] MEDS: Pantoprazole 40 MG Tab.CR PO SCH (08:17)
[2019-09-03] MEDS: Escitalopram 20 MG Tab PO SCH (08:17)
[2019-09-03] MEDS: Magnesium Oxide 400 MG Tab PO SCH ×2 (08:17→20:10)
[2019-09-03] MEDS: Carvedilol 6.25 MG Tab PO SCH ×2 (08:18→17:16)
[2019-09-03] MEDS: cycloSPORINE Ophth Drops U/D Box of 30 EYEBOTH SCH ×2 (08:19→20:10)
[2019-09-03] MEDS ORDERED: Loperamide 2 MG Cap PO PRN (11:52)
--- NOTE | 2019-09-03 11:55 | PCM.PN ---
- General Info Date of Service: 09/03/19 Subjective Update: There were no acute events overnight. Vital signs have been stable. Patient this morning had initially been feeling better and was packed and ready to go but then reported an increase in her abdominal pain. She feels bloated and somewhat nauseated. She is tolerating full liquids fairly well. She has not had any fevers. Diarrhea seems a little better. Labs have remained normal. Functional Status: Reports: Tolerating Diet. Denies: Pain Controlled - Review of Systems General: Denies: Fever Gastrointestinal: Reports: Abdominal Pain, Diarrhea - Patient Data Vitals - Most Recent: Last Vital Signs Temp 36.1 C 09/03/19 08:13 Pulse 75 09/03/19 08:18 Resp 16 09/03/19 08:13 BP 130/69 09/03/19 08:18 Pulse Ox 89 L 09/03/19 08:13 Weight - Most Recent: 75.024 kg I&O - Last 24 Hours: Intake & Output 09/02/19 09/03/19 09/03/19 22:59 06:59 14:59 Intake Total 540 1300 Output Total 300 Balance 240 1300 Lab Results Last 24 Hours: Laboratory Results - last 24 hr 09/03/19 09/03/19 Range/Units 04:30 04:30 WBC 6.1 (4.5-11.0) K/uL RBC 3.31 (3.30-5.50) M/uL Hgb 10.5 L (12.0-15.0) g/dL Hct 34.7 L (36.0-48.0) % MCV 105 H (80-98) fL MCH 32 H (27-31) pg MCHC 30 L (32-36) % Plt Count 155 (150-400) K/uL Sodium 134 L (140-148) mmol/L Potassium 4.3 (3.6-5.2) mmol/L Chloride 101 (100-108) mmol/L Carbon Dioxide 22 (21-32) mmol/L Anion Gap 15.3 H (5.0-14.0) mmol/L BUN 15 (7-18) mg/dL Creatinine 1.6 H (0.6-1.0) mg/dL Est Cr Clr Drug Dosing 34.49 mL/min Estimated GFR (MDRD) 33 L (>60) Glucose 201 H (74-106) mg/dL Calcium 8.9 (8.5-10.1) mg/dL Total Bilirubin 0.6 (0.2-1.0) mg/dL AST 50 H (15-37) U/L ALT 28 (12-78) U/L Alkaline Phosphatase 162 H (46-116) U/L Total Protein 6.3 L (6.4-8.2) g/dL Albumin 3.3 L (3.4-5.0) g/dL Globulin 3.0 (2.3-3.5) g/dL Albumin/Globulin Ratio 1.1 L (1.2-2.2) Med Orders - Current: Current Medications Amlodipine Besylate (Norvasc) 10 mg PO DAILY [facility] Last Admin: 09/02/19 11:27 Dose: Not Given Carvedilol (Coreg) 6.25 mg PO BIDMEALS [facility] Last Admin: 09/03/19 08:18 Dose: 6.25 mg Cyclosporine (Restasis) 0 each EYEBOTH BID [facility] Last Admin: 09/03/19 08:19 Dose: 1 drop Escitalopram Oxalate (Lexapro) 20 mg PO DAILY [facility] Last Admin: 09/03/19 08:17 Dose: 20 mg Hydromorphone HCl (Dilaudid) 1 mg IVPUSH Q2H PRN PRN Reason: Pain (severe 7-10) Last Admin: 09/02/19 22:51 Dose: 1 mg Hydromorphone HCl (Dilaudid) 0.5 mg IVPUSH Q2H PRN PRN Reason: Pain (moderate 4-6) Last Admin: 09/01/19 23:17 Dose: 0.5 mg Hydromorphone HCl (Dilaudid) 4 mg PO Q3H PRN PRN Reason: Pain (moderate 4-6) Last Admin: 09/03/19 08:15 Dose: 4 mg Lorazepam (Ativan) 1 mg IVPUSH Q4H PRN PRN Reason: Nausea/Vomiting Last Admin: 09/03/19 04:06 Dose: 1 mg Losartan Potassium (Cozaar) 100 mg PO DAILY [facility] Last Admin: 09/02/19 11:27 Dose: Not Given Magnesium Oxide (Magnesium Oxide) 400 mg PO BID [facility] Last Admin: 09/03/19 08:17 Dose: 400 mg Methylprednisolone Sodium Succinate (Solu-Medrol) 62.5 mg IVPUSH Q8H [facility] Last Admin: 09/03/19 04:11 Dose: 62.5 mg Ondansetron HCl (Zofran Odt) 8 mg PO Q8H PRN PRN Reason: Nausea/Vomiting Last Admin: 09/01/19 07:12 Dose: 8 mg Pantoprazole Sodium (Protonix) 40 mg PO DAILY@0730 [facility] Last Admin: 09/03/19 08:17 Dose: 40 mg Sodium Chloride (Saline Flush) 10 ml FLUSH ASDIRECTED PRN PRN Reason: Keep Vein Open Discontinued Medications Cyclosporine (Restasis) 0 each EYEBOTH BID [facility] Last Admin: 09/01/19 17:02 Dose: Not Given Diphenhydramine HCl (Benadryl) 25 mg IVPUSH ONETIME ONE Stop: 08/31/19 13:10 Last Admin: 08/31/19 13:18 Dose: 25 mg Enoxaparin Sodium (Lovenox) 40 mg SUBCUT DAILY [facility] Last Admin: 08/31/19 21:54 Dose: Not Given Furosemide (Lasix) 20 mg IVPUSH NOW ONE Stop: 09/02/19 19:38 Last Admin: 09/02/19 19:51 Dose: 20 mg Hydrocortisone Sodium Succinate (Solu-Cortef) 100 mg IVPUSH ONETIME ONE Stop: 08/31/19 13:10 Last Admin: 08/31/19 13:19 Dose: 100 mg Hydromorphone HCl (Dilaudid) 1 mg IVPUSH ONETIME ONE Stop: 08/31/19 12:39 Last Admin: 08/31/19 12:54 Dose: 1 mg Hydromorphone HCl (Dilaudid) 1 mg IVPUSH ONETIME ONE Stop: 08/31/19 13:29 Last Admin: 08/31/19 14:03 Dose: 1 mg Hydromorphone HCl (Dilaudid) 1 mg IVPUSH ONETIME ONE Stop: 08/31/19 15:33 Last Admin: 08/31/19 15:58 Dose: 1 mg Hydromorphone HCl (Dilaudid) 0.5 mg IVPUSH Q4H PRN PRN Reason: Pain Last Admin: 08/31/19 18:13 Dose: 0.5 mg Hydromorphone HCl (Dilaudid) 0.5 mg IVPUSH Q2H PRN PRN Reason: Pain (moderate 4-6) Sodium Chloride (Normal Saline) 1,000 mls @ 150 mls/hr IV ASDIRECTED [facility] Last Admin: 08/31/19 12:54 Dose: 150 mls/hr Sodium Chloride (Normal Saline) 71 mls @ 0 mls/hr IV ASDIRECTED [facility] Last Admin: 08/31/19 13:57 Dose: 3 mls/hr Potassium Chloride 40 meq/ (Premix) 100 mls @ 25 mls/hr IV ONETIME ONE Stop: 08/31/19 21:38 Last Admin: 08/31/19 21:54 Dose: Not Given Sodium Chloride (Normal Saline) 1,000 mls @ 125 mls/hr IV ASDIRECTED [facility] Last Admin: 09/01/19 09:25 Dose: 125 mls/hr Potassium Chloride 20 meq/ (Premix) 100 mls @ 50 mls/hr IV ONETIME ONE Stop: 08/31/19 20:20 Last Admin: 08/31/19 18:39 Dose: 50 mls/hr Potassium Chloride 20 meq/ (Premix) 100 mls @ 50 mls/hr IV ONETIME ONE Stop: 08/31/19 22:29 Last Admin: 08/31/19 22:51 Dose: 50 mls/hr Magnesium Sulfate 2 gm/ Premix 50 mls @ 25 mls/hr IV Q6H [facility] Stop: 09/02/19 06:59 Last Admin: 09/02/19 05:44 Dose: 25 mls/hr Sodium Chloride (Normal Saline) 1,000 mls @ 50 mls/hr IV ASDIRECTED [facility] Last Admin: 09/01/19 17:10 Dose: 50 mls/hr Iopamidol (Isovue-300 (61%)) 100 ml IV . DIRECTED [facility] Last Admin: 08/31/19 13:57 Dose: 100 ml Lidocaine HCl (Xylocaine-Mpf 1%) 5 ml INJECT ONETIME ONE Stop: 08/31/19 18:16 Last Admin: 08/31/19 18:39 Dose: 5 ml Methylprednisolone Sodium Succinate (Solu-Medrol) 125 mg IVPUSH ONETIME ONE Stop: 09/02/19 12:01 Last Admin: 09/02/19 13:19 Dose: 125 mg Potassium Gluconate [Potassium] 1 Tab Pom 1 tab PO BID [facility] Last Admin: 09/01/19 10:26 Dose: Not Given Ondansetron HCl (Zofran) 4 mg IVPUSH ONETIME ONE Stop: 08/31/19 12:43 Last Admin: 08/31/19 12:54 Dose: 4 mg Ondansetron HCl (Zofran) 8 mg IVPUSH ONETIME ONE Stop: 08/31/19 15:34 Last Admin: 08/31/19 15:55 Dose: 8 mg Ondansetron HCl (Zofran Odt) 4 mg PO Q6H PRN PRN Reason: Nausea Last Admin: 08/31/19 18:21 Dose: 4 mg Ondansetron HCl (Zofran Odt) 4 mg PO Q6H PRN PRN Reason: Nausea able to take PO Sodium Chloride (Saline Flush) 10 ml IV ASDIRECTED [facility] Last Admin: 08/31/19 13:57 Dose: 10 ml Sodium Chloride (Saline Flush) 10 ml FLUSH ONETIME ONE Stop: 08/31/19 13:10 Last Admin: 08/31/19 17:59 Dose: Not Given - Exam Quality Assessment: No: Supplemental Oxygen General: Alert, Oriented, Cooperative, Mild Distress Lungs: Normal Respiratory Effort GI/Abdominal Exam: Soft, Distended, Tender Extremities: No Pedal Edema Skin: Warm, Dry Psy/Mental Status: Alert, Normal Affect - Problem List Review Problem List Initiated/Reviewed/Updated: Yes - My Orders Last 24 Hours: My Active Orders 09/02/19 11:36 Convert IV to Saline Lock [OM.PC] Routine MARY Hose [Antiembolic Hose] [OM.PC] Routine 09/02/19 20:00 methylPREDNISolone Sod Succ [Solu-MEDROL] 62.5 mg IVPUSH Q8H 09/02/19 Lunch Full Liquid Diet [DIET] 09/03/19 11:52 Loperamide [Imodium] 2 mg PO Q4H PRN 09/03/19 12:00 Ciprofloxacin in D5W [Cipro in D5W 400 MG/200 ML] 400 mg Premix Bag 1 bag IV Q24H 09/04/19 05:00 BASIC METABOLIC PANEL,BMP [CHEM] Timed CBC W/O DIFF,HEMOGRAM [HEME] Timed (1) - Plan Plan:: ASSESSMENT AND PLAN PANCREATITIS, ACUTE ON CHRONIC - history of recurrent episodes as well as underlying chronic pancreatitis. This portion of her abdominal pain seems to have resolved. -Full liquids -Saline lock IV -Pain and nausea medication as needed PANCOLITIS - identified on CT scan, no previous history of chronic colitis. Pains does not seem to be improving and still having an increase in diarrhea from baseline. -Trial of ciprofloxacin -Trial of steroids -Symptomatic management -Reassess in a.m. Stage III chronic kidney disease - creatinine slightly higher the past 2 days. Still making good quantities of urine. MAINTENANCE ISSUES -DVT prophylaxis; SCUDS -GI prophylaxis; continue outpatient PPI therapy -Colon catheter; not indicated -Nutrition; full liquids DISPOSITION - anticipate discharge to home after the hospital stay. Edilberto Guerrero M.D.
[2019-09-03] MEDS: Ciprofloxacin in D5W 400 MG in Premix Bag 1 BAG IV SCH ×2 (13:15)
[2019-09-03] MEDS: Ondansetron 4 MG Tab.DIS PO PRN (13:15)
[2019-09-03] MEDS: Sodium Chloride 0.9% 10 ML Syringe FLUSH PRN (23:42)
[2019-09-04] MEDS: HYDROmorphone 2 MG Tab PO PRN ×6 (02:23→22:06)
[2019-09-04] MEDS: methylPREDNISolone Sodium Succinate 125 MG/2 ML SDV IVPUSH SCH (04:20)
[2019-09-04] MEDS: Pantoprazole 40 MG Tab.CR PO SCH (08:19)
[2019-09-04] MEDS: amLODIPine 10 MG Tab PO SCH (08:19)
[2019-09-04] MEDS: Magnesium Oxide 400 MG Tab PO SCH ×2 (08:20→21:17)
[2019-09-04] MEDS: Escitalopram 20 MG Tab PO SCH (08:20)
[2019-09-04] MEDS: Losartan 50 MG Tab PO SCH (08:20)
[2019-09-04] MEDS: cycloSPORINE Ophth Drops U/D Box of 30 EYEBOTH SCH ×2 (08:21→21:17)
[2019-09-04] MEDS: Carvedilol 6.25 MG Tab PO SCH ×2 (08:21→18:09)
[2019-09-04] MEDS ORDERED: Furosemide 40 MG/4 ML VIAL IVPUSH ONE (10:44)
--- NOTE | 2019-09-04 10:45 | PCM.PN ---
- General Info Date of Service: 09/04/19 Subjective Update: No acute events overnight. Patient continues to complain of generalized abdominal pain which is essentially stable since yesterday. Diarrhea seems a little better today. Nausea is not as intense. She feel short of breath and bloated today. She is coughing. She has not had any fevers. Functional Status: Reports: Tolerating Diet. Denies: Pain Controlled - Review of Systems General: Denies: Fever Pulmonary: Reports: Shortness of Breath Gastrointestinal: Reports: Abdominal Pain - Patient Data Vitals - Most Recent: Last Vital Signs Temp 36.3 C 09/04/19 07:00 Pulse 64 09/04/19 08:21 Resp 16 09/04/19 07:00 BP 170/82 H 09/04/19 08:21 Pulse Ox 85 L 09/04/19 07:45 Weight - Most Recent: 74.389 kg I&O - Last 24 Hours: Intake & Output 09/03/19 09/04/19 09/04/19 22:59 06:59 14:59 Intake Total 480 480 500 Output Total 100 300 200 Balance 380 180 300 Lab Results Last 24 Hours: Laboratory Results - last 24 hr 09/04/19 09/04/19 Range/Units 05:45 05:45 WBC 7.5 (4.5-11.0) K/uL RBC 3.37 (3.30-5.50) M/uL Hgb 11.2 L (12.0-15.0) g/dL Hct 34.6 L (36.0-48.0) % MCV 103 H (80-98) fL MCH 33 H (27-31) pg MCHC 32 (32-36) % Plt Count 158 (150-400) K/uL Sodium 134 L (140-148) mmol/L Potassium 3.9 (3.6-5.2) mmol/L Chloride 100 (100-108) mmol/L Carbon Dioxide 23 (21-32) mmol/L Anion Gap 14.9 H (5.0-14.0) mmol/L BUN 18 (7-18) mg/dL Creatinine 1.2 H (0.6-1.0) mg/dL Est Cr Clr Drug Dosing 45.98 mL/min Estimated GFR (MDRD) 46 L (>60) Glucose 163 H (74-106) mg/dL Calcium 9.1 (8.5-10.1) mg/dL Med Orders - Current: Current Medications Amlodipine Besylate (Norvasc) 10 mg PO DAILY [facility] Last Admin: 09/04/19 08:19 Dose: 10 mg Carvedilol (Coreg) 6.25 mg PO BIDMEALS [facility] Last Admin: 09/04/19 08:21 Dose: 6.25 mg Cyclosporine (Restasis) 0 each EYEBOTH BID [facility] Last Admin: 09/04/19 08:21 Dose: 1 drop Escitalopram Oxalate (Lexapro) 20 mg PO DAILY [facility] Last Admin: 09/04/19 08:20 Dose: 20 mg Furosemide (Lasix) 40 mg IVPUSH NOW ONE Stop: 09/04/19 10:45 Heparin Sodium (Porcine) (Heparin Lock Flush 100 Units/Ml) 500 units FLUSH ASDIRECTED PRN PRN Reason: IV Use Last Admin: 09/04/19 04:23 Dose: 500 units Hydromorphone HCl (Dilaudid) 1 mg IVPUSH Q2H PRN PRN Reason: Pain (severe 7-10) Last Admin: 09/02/19 22:51 Dose: 1 mg Hydromorphone HCl (Dilaudid) 0.5 mg IVPUSH Q2H PRN PRN Reason: Pain (moderate 4-6) Last Admin: 09/01/19 23:17 Dose: 0.5 mg Hydromorphone HCl (Dilaudid) 4 mg PO Q3H PRN PRN Reason: Pain (moderate 4-6) Last Admin: 09/04/19 06:41 Dose: 4 mg Ciprofloxacin/Dextrose 400 mg/ (Premix) 200 mls @ 200 mls/hr IV Q24H [facility] Last Admin: 09/03/19 13:15 Dose: 200 mls/hr Loperamide HCl (Imodium) 2 mg PO Q4H PRN PRN Reason: Diarrhea Lorazepam (Ativan) 1 mg IVPUSH Q4H PRN PRN Reason: Nausea/Vomiting Last Admin: 09/03/19 04:06 Dose: 1 mg Losartan Potassium (Cozaar) 100 mg PO DAILY [facility] Last Admin: 09/04/19 08:20 Dose: 100 mg Magnesium Oxide (Magnesium Oxide) 400 mg PO BID [facility] Last Admin: 09/04/19 08:20 Dose: 400 mg Ondansetron HCl (Zofran Odt) 8 mg PO Q8H PRN PRN Reason: Nausea/Vomiting Last Admin: 09/03/19 13:15 Dose: 8 mg Pantoprazole Sodium (Protonix) 40 mg PO DAILY@0730 [facility] Last Admin: 09/04/19 08:19 Dose: 40 mg Sodium Chloride (Saline Flush) 10 ml FLUSH ASDIRECTED PRN PRN Reason: Keep Vein Open Last Admin: 09/03/19 23:42 Dose: 10 ml Discontinued Medications Cyclosporine (Restasis) 0 each EYEBOTH BID [facility] Last Admin: 09/01/19 17:02 Dose: Not Given Diphenhydramine HCl (Benadryl) 25 mg IVPUSH ONETIME ONE Stop: 08/31/19 13:10 Last Admin: 08/31/19 13:18 Dose: 25 mg Enoxaparin Sodium (Lovenox) 40 mg SUBCUT DAILY [facility] Last Admin: 08/31/19 21:54 Dose: Not Given Furosemide (Lasix) 20 mg IVPUSH NOW ONE Stop: 09/02/19 19:38 Last Admin: 09/02/19 19:51 Dose: 20 mg Hydrocortisone Sodium Succinate (Solu-Cortef) 100 mg IVPUSH ONETIME ONE Stop: 08/31/19 13:10 Last Admin: 08/31/19 13:19 Dose: 100 mg Hydromorphone HCl (Dilaudid) 1 mg IVPUSH ONETIME ONE Stop: 08/31/19 12:39 Last Admin: 08/31/19 12:54 Dose: 1 mg Hydromorphone HCl (Dilaudid) 1 mg IVPUSH ONETIME ONE Stop: 08/31/19 13:29 Last Admin: 08/31/19 14:03 Dose: 1 mg Hydromorphone HCl (Dilaudid) 1 mg IVPUSH ONETIME ONE Stop: 08/31/19 15:33 Last Admin: 08/31/19 15:58 Dose: 1 mg Hydromorphone HCl (Dilaudid) 0.5 mg IVPUSH Q4H PRN PRN Reason: Pain Last Admin: 08/31/19 18:13 Dose: 0.5 mg Hydromorphone HCl (Dilaudid) 0.5 mg IVPUSH Q2H PRN PRN Reason: Pain (moderate 4-6) Sodium Chloride (Normal Saline) 1,000 mls @ 150 mls/hr IV ASDIRECTED [facility] Last Admin: 08/31/19 12:54 Dose: 150 mls/hr Sodium Chloride (Normal Saline) 71 mls @ 0 mls/hr IV ASDIRECTED [facility] Last Admin: 08/31/19 13:57 Dose: 3 mls/hr Potassium Chloride 40 meq/ (Premix) 100 mls @ 25 mls/hr IV ONETIME ONE Stop: 08/31/19 21:38 Last Admin: 08/31/19 21:54 Dose: Not Given Sodium Chloride (Normal Saline) 1,000 mls @ 125 mls/hr IV ASDIRECTED [facility] Last Admin: 09/01/19 09:25 Dose: 125 mls/hr Potassium Chloride 20 meq/ (Premix) 100 mls @ 50 mls/hr IV ONETIME ONE Stop: 08/31/19 20:20 Last Admin: 08/31/19 18:39 Dose: 50 mls/hr Potassium Chloride 20 meq/ (Premix) 100 mls @ 50 mls/hr IV ONETIME ONE Stop: 08/31/19 22:29 Last Admin: 08/31/19 22:51 Dose: 50 mls/hr Magnesium Sulfate 2 gm/ Premix 50 mls @ 25 mls/hr IV Q6H [facility] Stop: 09/02/19 06:59 Last Admin: 09/02/19 05:44 Dose: 25 mls/hr Sodium Chloride (Normal Saline) 1,000 mls @ 50 mls/hr IV ASDIRECTED [facility] Last Admin: 09/01/19 17:10 Dose: 50 mls/hr Iopamidol (Isovue-300 (61%)) 100 ml IV . DIRECTED [facility] Last Admin: 08/31/19 13:57 Dose: 100 ml Lidocaine HCl (Xylocaine-Mpf 1%) 5 ml INJECT ONETIME ONE Stop: 08/31/19 18:16 Last Admin: 08/31/19 18:39 Dose: 5 ml Methylprednisolone Sodium Succinate (Solu-Medrol) 125 mg IVPUSH ONETIME ONE Stop: 09/02/19 12:01 Last Admin: 09/02/19 13:19 Dose: 125 mg Methylprednisolone Sodium Succinate (Solu-Medrol) 62.5 mg IVPUSH Q8H [facility] Last Admin: 09/04/19 04:20 Dose: 62.5 mg Potassium Gluconate [Potassium] 1 Tab Pom 1 tab PO BID [facility] Last Admin: 09/01/19 10:26 Dose: Not Given Ondansetron HCl (Zofran) 4 mg IVPUSH ONETIME ONE Stop: 08/31/19 12:43 Last Admin: 08/31/19 12:54 Dose: 4 mg Ondansetron HCl (Zofran) 8 mg IVPUSH ONETIME ONE Stop: 08/31/19 15:34 Last Admin: 08/31/19 15:55 Dose: 8 mg Ondansetron HCl (Zofran Odt) 4 mg PO Q6H PRN PRN Reason: Nausea Last Admin: 08/31/19 18:21 Dose: 4 mg Ondansetron HCl (Zofran Odt) 4 mg PO Q6H PRN PRN Reason: Nausea able to take PO Sodium Chloride (Saline Flush) 10 ml IV ASDIRECTED [facility] Last Admin: 08/31/19 13:57 Dose: 10 ml Sodium Chloride (Saline Flush) 10 ml FLUSH ONETIME ONE Stop: 08/31/19 13:10 Last Admin: 08/31/19 17:59 Dose: Not Given - Exam Quality Assessment: No: Supplemental Oxygen General: Alert, Oriented, Cooperative, Mild Distress Lungs: Normal Respiratory Effort, Rhonchi (mild diffuse ) Cardiovascular: Regular Rate, Regular Rhythm GI/Abdominal Exam: Soft, No Distention, Tender Extremities: No Pedal Edema. No: Increased Warmth Psy/Mental Status: Alert, Anxious - Problem List Review Problem List Initiated/Reviewed/Updated: Yes - My Orders Last 24 Hours: My Active Orders 09/03/19 11:52 Loperamide [Imodium] 2 mg PO Q4H PRN 09/03/19 12:00 Ciprofloxacin in D5W [Cipro in D5W 400 MG/200 ML] 400 mg Premix Bag 1 bag IV Q24H 09/03/19 22:45 Heparin Sodium [Heparin Lock Flush 100 Units/ML] 500 units FLUSH ASDIRECTED PRN 09/04/19 10:43 CXR [Chest 2V] [CR] Routine 09/04/19 10:44 Furosemide [Lasix] 40 mg IVPUSH NOW ONE - Plan Plan:: ASSESSMENT AND PLAN SHORTNESS OF BREATH - new onset. She does have some wheezing. I suspect there may be a component of excess volume as she recovers from her pancreatitis and volume resuscitation. She has not had fevers. White blood cell count is normal. -Chest x-ray -Furosemide 1 and reassess later in the day PANCREATITIS, ACUTE ON CHRONIC - history of recurrent episodes as well as underlying chronic pancreatitis. This portion of her abdominal pain seems to have resolved. -Full liquids -Saline lock IV -Pain and nausea medication as needed PANCOLITIS - identified on CT scan, no previous history of chronic colitis. Pains has remained stable and has not improved much. Diarrhea is doing better. -Trial of ciprofloxacin -Discontinue steroids -Symptomatic management -Reassess in a.m. Stage III chronic kidney disease - creatinine better over the past 24 hours. MAINTENANCE ISSUES -DVT prophylaxis; SCUDS -GI prophylaxis; continue outpatient PPI therapy -Colon catheter; not indicated -Nutrition; full liquids DISPOSITION - anticipate discharge to home after the hospital stay. Edilberto Guerrero M.D.
--- NOTE | 2019-09-04 11:43 | CRLCR ---
INDICATION: Cough. Shortness of breath. TECHNIQUE: PA and lateral chest x-ray COMPARISON Chest x-ray 08/04/2002. FINDINGS: Right-sided Port-A-Cath. Heart size normal. Moderate dense infiltrates throughout the right lung are new with relative sparing of the right lung apex and the lateral right mid and upper lung. These infiltrates are fairly dense and may be predominantly alveolar. Similar-appearing but less dense infiltrates in the left lung most marked in the left perihilar region and to a lesser extent left mid and lower lung with sparing of the left lung apex. Findings could related to diffuse bilateral pneumonia. Differential considerations included alveolar hemorrhage, unusual pulmonary edema, early ARDS, or combination of all etiologies. New linear opacities in the lung bases bilaterally and laterally which could be related to Apoorva B-lines which would at least suggest a component of pulmonary edema. Cannot exclude very small bilateral pleural effusions. Surgical clips right upper abdomen. Remainder negative. Dictated by Brayden Ruelas MD @ Sep 04 2019 11:38AM Signed by Dr. Brayden Ruelas @ Sep 04 2019 11:41AM
[2019-09-04] MEDS: Ciprofloxacin in D5W 400 MG in Premix Bag 1 BAG IV SCH ×2 (13:13)
[2019-09-04] MEDS: Sodium Chloride 0.9% 10 ML Syringe FLUSH PRN (14:34)
[2019-09-04] MEDS: Levalbuterol HCl 1.25 MG/3 ML Neb NEB SCH ×2 (16:14→21:56)
[2019-09-04] MEDS ORDERED: Furosemide 20 MG/2 ML VIAL IVPUSH ONE (16:53)
[2019-09-04] MEDS ORDERED: LORazepam 1 MG Tab PO PRN (16:59)
[2019-09-04] MEDS: Ondansetron 4 MG Tab.DIS PO PRN (21:17)
[2019-09-05] MEDS ORDERED: Ciprofloxacin in D5W 400 MG in Premix Bag 1 BAG IV SCH ×2 (01:00)
[2019-09-05] MEDS: HYDROmorphone 2 MG Tab PO PRN ×5 (02:06→21:07)
[2019-09-05] MEDS: Sodium Chloride 0.9% 10 ML Syringe FLUSH PRN ×2 (03:25→10:31)
[2019-09-05] MEDS: Levalbuterol HCl 1.25 MG/3 ML Neb NEB SCH ×5 (07:31→21:06)
[2019-09-05] MEDS: Losartan 50 MG Tab PO SCH (08:24)
[2019-09-05] MEDS: Pantoprazole 40 MG Tab.CR PO SCH (08:24)
[2019-09-05] MEDS: amLODIPine 10 MG Tab PO SCH (08:25)
[2019-09-05] MEDS: Magnesium Oxide 400 MG Tab PO SCH ×2 (08:26→21:08)
[2019-09-05] MEDS: Carvedilol 6.25 MG Tab PO SCH ×2 (08:26→18:23)
[2019-09-05] MEDS: Escitalopram 20 MG Tab PO SCH (08:26)
[2019-09-05] MEDS: cycloSPORINE Ophth Drops U/D Box of 30 EYEBOTH SCH ×2 (08:27→21:08)
--- NOTE | 2019-09-05 09:56 | CRLCT ---
INDICATION: Cough; hypoxia. COMPARISON: Chest radiograph August 04, 2017 and 09/04/2019; CT abdomen and pelvis 08/31/2019 and 02/09/2019. TECHNIQUE: CT chest without intravenous contrast; coronal and sagittal reformats. FINDINGS: Diffuse alveolar infiltrates both lungs more on the right; relatively new when compared to the abdominal CT dated 08/31/2019. Normal size cardiac silhouette. Port-A-Cath in place. Small right-sided pleural effusion; relatively new when compared to 08/31/2019. No pneumothorax on either side. Limited CT through the upper abdomen reveals evidence of pancreatitis. IMPRESSION: 1. Diffuse pulmonary infiltrates both lungs more on the right; relatively acute; rule out ARDS. 2. Port-A-Cath in place. 3. Small right-sided pleural effusion. Please note that all CT scans at this facility use dose modulation, iterative reconstruction, and/or weight-based dosing when appropriate to reduce radiation dose to as low as reasonably achievable. Dictated by Carmencita Carlson MD @ Sep 05 2019 9:28AM Signed by Dr. Carmencita Carlson @ Sep 05 2019 9:54AM
[2019-09-05] MEDS ORDERED: Furosemide 40 MG/4 ML VIAL IVPUSH ONE (10:20)
--- NOTE | 2019-09-05 10:57 | PCM.PN ---
- General Info Date of Service: 09/05/19 Subjective Update: No acute events overnight. Still short of breath but improved today. Was able to get some sleep last night. She did have one low-grade fever this morning. Chest CT this morning showed some diffuse infiltrates concerning for fluid or possibly early ARDS. She is requiring 4 L of supplemental oxygen. Abdominal pain and nausea are better. Diarrhea better. - Patient Data Vitals - Most Recent: Last Vital Signs Temp 37.6 C 09/05/19 08:45 Pulse 58 L 09/05/19 10:40 Resp 18 09/05/19 07:00 BP 148/76 H 09/05/19 08:26 Pulse Ox 91 L 09/05/19 10:40 Weight - Most Recent: 74.389 kg I&O - Last 24 Hours: Intake & Output 09/04/19 09/05/19 09/05/19 22:59 06:59 14:59 Intake Total 200 555 Output Total 1350 400 Balance -1150 155 Lab Results Last 24 Hours: Laboratory Results - last 24 hr 09/04/19 Range/Units 05:30 Procalcitonin < 0.05 ng/mL Med Orders - Current: Current Medications Amlodipine Besylate (Norvasc) 10 mg PO DAILY [facility] Last Admin: 09/05/19 08:25 Dose: 10 mg Carvedilol (Coreg) 6.25 mg PO BIDMEALS [facility] Last Admin: 09/05/19 08:26 Dose: 6.25 mg Cyclosporine (Restasis) 0 each EYEBOTH BID [facility] Last Admin: 09/05/19 08:27 Dose: 1 drop Escitalopram Oxalate (Lexapro) 20 mg PO DAILY [facility] Last Admin: 09/05/19 08:26 Dose: 20 mg Heparin Sodium (Porcine) (Heparin Lock Flush 100 Units/Ml) 500 units FLUSH ASDIRECTED PRN PRN Reason: IV Use Last Admin: 09/05/19 10:30 Dose: 500 units Hydromorphone HCl (Dilaudid) 1 mg IVPUSH Q2H PRN PRN Reason: Pain (severe 7-10) Last Admin: 09/02/19 22:51 Dose: 1 mg Hydromorphone HCl (Dilaudid) 0.5 mg IVPUSH Q2H PRN PRN Reason: Pain (moderate 4-6) Last Admin: 09/01/19 23:17 Dose: 0.5 mg Hydromorphone HCl (Dilaudid) 4 mg PO Q3H PRN PRN Reason: Pain (moderate 4-6) Last Admin: 09/05/19 08:24 Dose: 4 mg Ibuprofen (Motrin) 600 mg PO Q6H PRN PRN Reason: Pain/Fever Levalbuterol HCl (Xopenex) 1.25 mg NEB Q4H PRN PRN Reason: shortness of breath/wheezing Levalbuterol HCl (Xopenex) 1.25 mg NEB QIDRT [facility] Last Admin: 09/05/19 10:39 Dose: 1.25 mg Loperamide HCl (Imodium) 2 mg PO Q4H PRN PRN Reason: Diarrhea Lorazepam (Ativan) 1 mg IVPUSH Q4H PRN PRN Reason: Nausea/Vomiting Last Admin: 09/03/19 04:06 Dose: 1 mg Lorazepam (Ativan) 1 mg PO BEDTIME PRN PRN Reason: Sleep Last Admin: 09/04/19 21:55 Dose: 1 mg Losartan Potassium (Cozaar) 100 mg PO DAILY [facility] Last Admin: 09/05/19 08:24 Dose: 100 mg Magnesium Oxide (Magnesium Oxide) 400 mg PO BID [facility] Last Admin: 09/05/19 08:26 Dose: 400 mg Ondansetron HCl (Zofran Odt) 8 mg PO Q8H PRN PRN Reason: Nausea/Vomiting Last Admin: 09/04/19 21:17 Dose: 8 mg Pantoprazole Sodium (Protonix) 40 mg PO DAILY@0730 [facility] Last Admin: 09/05/19 08:24 Dose: 40 mg Sodium Chloride (Saline Flush) 10 ml FLUSH ASDIRECTED PRN PRN Reason: Keep Vein Open Last Admin: 09/05/19 10:31 Dose: 10 ml Discontinued Medications Cyclosporine (Restasis) 0 each EYEBOTH BID [facility] Last Admin: 09/01/19 17:02 Dose: Not Given Diphenhydramine HCl (Benadryl) 25 mg IVPUSH ONETIME ONE Stop: 08/31/19 13:10 Last Admin: 08/31/19 13:18 Dose: 25 mg Enoxaparin Sodium (Lovenox) 40 mg SUBCUT DAILY [facility] Last Admin: 08/31/19 21:54 Dose: Not Given Furosemide (Lasix) 20 mg IVPUSH NOW ONE Stop: 09/02/19 19:38 Last Admin: 09/02/19 19:51 Dose: 20 mg Furosemide (Lasix) 40 mg IVPUSH NOW ONE Stop: 09/04/19 10:45 Last Admin: 09/04/19 10:50 Dose: 40 mg Furosemide (Lasix) 20 mg IVPUSH NOW ONE Stop: 09/04/19 16:54 Last Admin: 09/04/19 18:07 Dose: 20 mg Furosemide (Lasix) 40 mg IVPUSH NOW ONE Stop: 09/05/19 10:21 Last Admin: 09/05/19 10:30 Dose: 40 mg Hydrocortisone Sodium Succinate (Solu-Cortef) 100 mg IVPUSH ONETIME ONE Stop: 08/31/19 13:10 Last Admin: 08/31/19 13:19 Dose: 100 mg Hydromorphone HCl (Dilaudid) 1 mg IVPUSH ONETIME ONE Stop: 08/31/19 12:39 Last Admin: 08/31/19 12:54 Dose: 1 mg Hydromorphone HCl (Dilaudid) 1 mg IVPUSH ONETIME ONE Stop: 08/31/19 13:29 Last Admin: 08/31/19 14:03 Dose: 1 mg Hydromorphone HCl (Dilaudid) 1 mg IVPUSH ONETIME ONE Stop: 08/31/19 15:33 Last Admin: 08/31/19 15:58 Dose: 1 mg Hydromorphone HCl (Dilaudid) 0.5 mg IVPUSH Q4H PRN PRN Reason: Pain Last Admin: 08/31/19 18:13 Dose: 0.5 mg Hydromorphone HCl (Dilaudid) 0.5 mg IVPUSH Q2H PRN PRN Reason: Pain (moderate 4-6) Sodium Chloride (Normal Saline) 1,000 mls @ 150 mls/hr IV ASDIRECTED [facility] Last Admin: 08/31/19 12:54 Dose: 150 mls/hr Sodium Chloride (Normal Saline) 71 mls @ 0 mls/hr IV ASDIRECTED [facility] Last Admin: 08/31/19 13:57 Dose: 3 mls/hr Potassium Chloride 40 meq/ (Premix) 100 mls @ 25 mls/hr IV ONETIME ONE Stop: 08/31/19 21:38 Last Admin: 08/31/19 21:54 Dose: Not Given Sodium Chloride (Normal Saline) 1,000 mls @ 125 mls/hr IV ASDIRECTED [facility] Last Admin: 09/01/19 09:25 Dose: 125 mls/hr Potassium Chloride 20 meq/ (Premix) 100 mls @ 50 mls/hr IV ONETIME ONE Stop: 08/31/19 20:20 Last Admin: 08/31/19 18:39 Dose: 50 mls/hr Potassium Chloride 20 meq/ (Premix) 100 mls @ 50 mls/hr IV ONETIME ONE Stop: 08/31/19 22:29 Last Admin: 08/31/19 22:51 Dose: 50 mls/hr Magnesium Sulfate 2 gm/ Premix 50 mls @ 25 mls/hr IV Q6H [facility] Stop: 09/02/19 06:59 Last Admin: 09/02/19 05:44 Dose: 25 mls/hr Sodium Chloride (Normal Saline) 1,000 mls @ 50 mls/hr IV ASDIRECTED [facility] Last Admin: 09/01/19 17:10 Dose: 50 mls/hr Ciprofloxacin/Dextrose 400 mg/ (Premix) 200 mls @ 200 mls/hr IV Q24H [facility] Last Admin: 09/04/19 13:13 Dose: 200 mls/hr Ciprofloxacin/Dextrose 400 mg/ (Premix) 200 mls @ 200 mls/hr IV Q12H [facility] Stop: 09/05/19 06:00 Last Admin: 09/05/19 01:58 Dose: 200 mls/hr Iopamidol (Isovue-300 (61%)) 100 ml IV . DIRECTED [facility] Last Admin: 08/31/19 13:57 Dose: 100 ml Lidocaine HCl (Xylocaine-Mpf 1%) 5 ml INJECT ONETIME ONE Stop: 08/31/19 18:16 Last Admin: 08/31/19 18:39 Dose: 5 ml Methylprednisolone Sodium Succinate (Solu-Medrol) 125 mg IVPUSH ONETIME ONE Stop: 09/02/19 12:01 Last Admin: 09/02/19 13:19 Dose: 125 mg Methylprednisolone Sodium Succinate (Solu-Medrol) 62.5 mg IVPUSH Q8H [facility] Last Admin: 09/04/19 04:20 Dose: 62.5 mg Potassium Gluconate [Potassium] 1 Tab Pom 1 tab PO BID [facility] Last Admin: 09/01/19 10:26 Dose: Not Given Ondansetron HCl (Zofran) 4 mg IVPUSH ONETIME ONE Stop: 08/31/19 12:43 Last Admin: 08/31/19 12:54 Dose: 4 mg Ondansetron HCl (Zofran) 8 mg IVPUSH ONETIME ONE Stop: 08/31/19 15:34 Last Admin: 08/31/19 15:55 Dose: 8 mg Ondansetron HCl (Zofran Odt) 4 mg PO Q6H PRN PRN Reason: Nausea Last Admin: 08/31/19 18:21 Dose: 4 mg Ondansetron HCl (Zofran Odt) 4 mg PO Q6H PRN PRN Reason: Nausea able to take PO Sodium Chloride (Saline Flush) 10 ml IV ASDIRECTED [facility] Last Admin: 08/31/19 13:57 Dose: 10 ml Sodium Chloride (Saline Flush) 10 ml FLUSH ONETIME ONE Stop: 08/31/19 13:10 Last Admin: 08/31/19 17:59 Dose: Not Given - Exam Quality Assessment: Supplemental Oxygen General: Alert, Oriented, Cooperative, No Acute Distress Lungs: Normal Respiratory Effort, Crackles (Rare in both upper lungs) Cardiovascular: Regular Rate, Regular Rhythm GI/Abdominal Exam: Soft, Distended Extremities: No Pedal Edema Psy/Mental Status: Alert, Normal Affect - Problem List Review Problem List Initiated/Reviewed/Updated: Yes - My Orders Last 24 Hours: My Active Orders 09/04/19 15:40 Levalbuterol HCl [Xopenex] 1.25 mg NEB Q4H PRN 09/04/19 15:41 RT Aerosol Therapy [RC] ASDIRECTED 09/04/19 16:00 Levalbuterol HCl [Xopenex] 1.25 mg NEB QIDRT 09/04/19 16:59 LORazepam [Ativan] 1 mg PO BEDTIME PRN 09/05/19 09:56 Ibuprofen [Motrin] 600 mg PO Q6H PRN 09/06/19 05:00 BASIC METABOLIC PANEL,BMP [CHEM] Timed CBC W/O DIFF,HEMOGRAM [HEME] Timed (1) - Plan Plan:: ASSESSMENT AND PLAN SHORTNESS OF BREATH - suspect there may be a component of excess volume as she recovers from her pancreatitis and volume resuscitation. She continues to be hypoxic. Lung exam is improved today. CT scan of the chest showed fluid versus early ARDS. Pro-calcitonin was undetectable. -Furosemide 1 and reassess later in the day PANCREATITIS, ACUTE ON CHRONIC - history of recurrent episodes as well as underlying chronic pancreatitis. This portion of her abdominal pain seems to have resolved. -Full liquids -Saline lock IV -Pain and nausea medication as needed PANCOLITIS - identified on CT scan, no previous history of chronic colitis. Pains has remained stable and has not improved much. Diarrhea is doing better. Suspect viral illness. -Symptomatic management -Reassess in a.m. Stage III chronic kidney disease - creatinine stable. MAINTENANCE ISSUES -DVT prophylaxis; SCUDS -GI prophylaxis; continue outpatient PPI therapy -Colon catheter; not indicated -Nutrition; full liquids DISPOSITION - anticipate discharge to home after the hospital stay. Edilberto Guerrero M.D.
[2019-09-05] MEDS: Ibuprofen 600 MG Tab PO PRN (17:51)
[2019-09-05] MEDS: Levalbuterol HCl 1.25 MG/3 ML Neb NEB PRN (23:38)
[2019-09-05] MEDS: LORazepam 2 MG/ML SDV IVPUSH PRN (23:53)
[2019-09-06] MEDS ORDERED: Potassium Chloride 20 MEQ in Premix Bag 1 BAG IV ONE (00:30)
--- NOTE | 2019-09-06 00:30 | PCM.SN ---
- Free Text/Narrative Note: Time: 24:16 call from [address] [place] [address] to assess Mrs. Ma for an irregular heartbeat. S: denies any chest pain, shortness of breath, weakness, or any symptoms other than her abdominal pain O: vital signs. pulse 60 to 130's, B/P 88/62 O2 sat 91%, oxygen at 4 l per NC. Intake 610 Output 1800, EKG A-fib chest: lungs clear to bases, heart rate irregular rate varies abdomen: soft, tenderness noted to epigastric area extremities: legs no edema skin: warm and dry Labs: CBC, BMP. K+3.0, Na+ 135m cr 1,6m gfr 33 TROP <0.017, ABG saline lock IV A:A-fib. P: consult with Internal Medicine give Potassium 20meq IV continue Tele. continue with present plan of care. O: Mrs. Ma is crying and having a panic attack from being evaluated, and is now worried about her heart A: anxiety P: given Ativan 1mg IV for anxiety. reassurance and discussed plan of care with Mrs. Ma. she is now resting after Ativan IV
[2019-09-06] MEDS: Sodium Chloride 0.9% 10 ML Syringe FLUSH PRN (03:11)
[2019-09-06] MEDS: HYDROmorphone 2 MG Tab PO PRN ×4 (05:37→20:30)
[2019-09-06] MEDS: Levalbuterol HCl 1.25 MG/3 ML Neb NEB SCH ×4 (07:01→20:17)
[2019-09-06] MEDS: amLODIPine 10 MG Tab PO SCH (08:35)
[2019-09-06] MEDS: Losartan 50 MG Tab PO SCH (08:35)
[2019-09-06] MEDS: Carvedilol 6.25 MG Tab PO SCH ×2 (08:35→17:21)
[2019-09-06] MEDS: Pantoprazole 40 MG Tab.CR PO SCH (08:35)
[2019-09-06] MEDS: Magnesium Oxide 400 MG Tab PO SCH ×2 (08:35→20:19)
[2019-09-06] MEDS: cycloSPORINE Ophth Drops U/D Box of 30 EYEBOTH SCH ×2 (08:36→20:19)
[2019-09-06] MEDS: Escitalopram 20 MG Tab PO SCH (08:36)
--- NOTE | 2019-09-06 08:55 | PCM.PN ---
- General Info Date of Service: 09/06/19 Subjective Update: Overnight the patient had difficulty with shortness of breath. Oxygenation has declined slightly and she was requiring slightly more oxygen support morning. Chest x-ray is stable with diffuse bilateral infiltrates concerning for ARDS. She does not feel very short of breath. She has not had any fevers. She is coughing some. She does produce a small amount of sputum. Abdominal pain slowly improving. Troponins negative 2. Arterial blood gases last night fairly unremarkable. Functional Status: Reports: Pain Controlled, Tolerating Diet - Review of Systems General: Reports: Weakness, Fatigue. Denies: Fever Pulmonary: Reports: Shortness of Breath, Cough, Sputum - Patient Data Vitals - Most Recent: Last Vital Signs Temp 36.3 C 09/06/19 07:15 Pulse 73 09/06/19 08:35 Resp 12 09/06/19 08:42 BP 118/72 09/06/19 08:35 Pulse Ox 88 L 09/06/19 08:42 Weight - Most Recent: 74.389 kg I&O - Last 24 Hours: Intake & Output 09/05/19 09/06/19 09/06/19 22:59 06:59 14:59 Intake Total 610 100 Output Total 1850 Balance -1240 100 Lab Results Last 24 Hours: Laboratory Results - last 24 hr 09/05/19 09/05/19 09/05/19 Range/Units 23:50 23:50 23:50 WBC 6.6 (4.5-11.0) K/uL RBC 3.48 (3.30-5.50) M/uL Hgb 11.7 L (12.0-15.0) g/dL Hct 34.6 L (36.0-48.0) % MCV 99 H (80-98) fL MCH 34 H (27-31) pg MCHC 34 (32-36) % Plt Count 120 L (150-400) K/uL Neut % (Auto) 68 H (36-66) % Lymph % (Auto) 21 L (24-44) % [place] % (Auto) 10 H (2-6) % Eos % (Auto) 1 L (2-4) % Baso % (Auto) 0 (0-1) % D-Dimer, Quantitative (0.0-400.0) ng/mL Puncture Site L brachial ABG pH 7.443 (7.350-7.450) ABG pCO2 42.5 H (35.0-42.0) mmHg ABG pO2 56.9 L (75.0-100.0) mmHg ABG HCO3 28.6 H (22.0-26.0) mmol/L ABG Total CO2 25.8 H (21.0-25.0) mmol/L ABG O2 Saturation 88.3 L (95.0-98.0) % ABG O2 Content 14.5 L (15.0-23.0) %vol ABG Base Excess 4.5 mm/L ABG Hemoglobin 11.9 L (12.0-16.0) g/dL ABG Oxyhemoglobin 86.2 % ABG Carboxyhemoglobin 1.7 H (0.0-1.6) % ABG Methemoglobin 0.7 % O2 Delivery Device Hi flow nasal cannu Oxygen Flow Rate 4 L Sodium 135 L (140-148) mmol/L Potassium 3.0 L (3.6-5.2) mmol/L Chloride 99 L (100-108) mmol/L Carbon Dioxide 27 (21-32) mmol/L Anion Gap 12.0 (5.0-14.0) mmol/L BUN 25 H (7-18) mg/dL Creatinine 1.6 H (0.6-1.0) mg/dL Est Cr Clr Drug Dosing 34.49 mL/min Estimated GFR (MDRD) 33 L (>60) Glucose 160 H (74-106) mg/dL Calcium 9.1 (8.5-10.1) mg/dL Magnesium 1.4 L (1.8-2.4) mg/dL Troponin I < 0.017 (0.000-0.056) ng/mL 09/06/19 09/06/19 09/06/19 Range/Units 04:00 04:00 07:56 WBC 7.3 (4.5-11.0) K/uL RBC 3.83 (3.30-5.50) M/uL Hgb 12.5 (12.0-15.0) g/dL Hct 38.8 (36.0-48.0) % MCV 101 H (80-98) fL MCH 33 H (27-31) pg MCHC 32 (32-36) % Plt Count 135 L (150-400) K/uL Neut % (Auto) (36-66) % Lymph % (Auto) (24-44) % [place] % (Auto) (2-6) % Eos % (Auto) (2-4) % Baso % (Auto) (0-1) % D-Dimer, Quantitative 1010 H (0.0-400.0) ng/mL Puncture Site ABG pH (7.350-7.450) ABG pCO2 (35.0-42.0) mmHg ABG pO2 (75.0-100.0) mmHg ABG HCO3 (22.0-26.0) mmol/L ABG Total CO2 (21.0-25.0) mmol/L ABG O2 Saturation (95.0-98.0) % ABG O2 Content (15.0-23.0) %vol ABG Base Excess mm/L ABG Hemoglobin (12.0-16.0) g/dL ABG Oxyhemoglobin % ABG Carboxyhemoglobin (0.0-1.6) % ABG Methemoglobin % O2 Delivery Device Oxygen Flow Rate L Sodium 137 L (140-148) mmol/L Potassium 3.3 L (3.6-5.2) mmol/L Chloride 100 (100-108) mmol/L Carbon Dioxide 30 (21-32) mmol/L Anion Gap 10.3 (5.0-14.0) mmol/L BUN 24 H (7-18) mg/dL Creatinine 1.5 H (0.6-1.0) mg/dL Est Cr Clr Drug Dosing 36.79 mL/min Estimated GFR (MDRD) 36 L (>60) Glucose 109 H (74-106) mg/dL Calcium 9.2 (8.5-10.1) mg/dL Magnesium (1.8-2.4) mg/dL Troponin I (0.000-0.056) ng/mL 09/06/19 Range/Units 07:56 WBC (4.5-11.0) K/uL RBC (3.30-5.50) M/uL Hgb (12.0-15.0) g/dL Hct (36.0-48.0) % MCV (80-98) fL MCH (27-31) pg MCHC (32-36) % Plt Count (150-400) K/uL Neut % (Auto) (36-66) % Lymph % (Auto) (24-44) % [place] % (Auto) (2-6) % Eos % (Auto) (2-4) % Baso % (Auto) (0-1) % D-Dimer, Quantitative (0.0-400.0) ng/mL Puncture Site ABG pH (7.350-7.450) ABG pCO2 (35.0-42.0) mmHg ABG pO2 (75.0-100.0) mmHg ABG HCO3 (22.0-26.0) mmol/L ABG Total CO2 (21.0-25.0) mmol/L ABG O2 Saturation (95.0-98.0) % ABG O2 Content (15.0-23.0) %vol ABG Base Excess mm/L ABG Hemoglobin (12.0-16.0) g/dL ABG Oxyhemoglobin % ABG Carboxyhemoglobin (0.0-1.6) % ABG Methemoglobin % O2 Delivery Device Oxygen Flow Rate L Sodium (140-148) mmol/L Potassium (3.6-5.2) mmol/L Chloride (100-108) mmol/L Carbon Dioxide (21-32) mmol/L Anion Gap (5.0-14.0) mmol/L BUN (7-18) mg/dL Creatinine (0.6-1.0) mg/dL Est Cr Clr Drug Dosing mL/min Estimated GFR (MDRD) (>60) Glucose (74-106) mg/dL Calcium (8.5-10.1) mg/dL Magnesium (1.8-2.4) mg/dL Troponin I < 0.017 (0.000-0.056) ng/mL Med Orders - Current: Current Medications Amlodipine Besylate (Norvasc) 10 mg PO DAILY [facility] Last Admin: 09/06/19 08:35 Dose: 10 mg Carvedilol (Coreg) 6.25 mg PO BIDMEALS [facility] Last Admin: 09/06/19 08:35 Dose: 6.25 mg Cyclosporine (Restasis) 0 each EYEBOTH BID [facility] Last Admin: 09/06/19 08:36 Dose: 1 drop Escitalopram Oxalate (Lexapro) 20 mg PO DAILY [facility] Last Admin: 09/06/19 08:36 Dose: 20 mg Heparin Sodium (Porcine) (Heparin Lock Flush 100 Units/Ml) 500 units FLUSH ASDIRECTED PRN PRN Reason: IV Use Last Admin: 09/06/19 03:10 Dose: 500 units Hydromorphone HCl (Dilaudid) 1 mg IVPUSH Q2H PRN PRN Reason: Pain (severe 7-10) Last Admin: 09/02/19 22:51 Dose: 1 mg Hydromorphone HCl (Dilaudid) 0.5 mg IVPUSH Q2H PRN PRN Reason: Pain (moderate 4-6) Last Admin: 09/01/19 23:17 Dose: 0.5 mg Hydromorphone HCl (Dilaudid) 4 mg PO Q3H PRN PRN Reason: Pain (moderate 4-6) Last Admin: 09/06/19 05:37 Dose: 4 mg Ibuprofen (Motrin) 600 mg PO Q6H PRN PRN Reason: Pain/Fever Last Admin: 09/05/19 17:51 Dose: 600 mg Levalbuterol HCl (Xopenex) 1.25 mg NEB Q4H PRN PRN Reason: shortness of breath/wheezing Last Admin: 09/05/19 23:38 Dose: 1.25 mg Levalbuterol HCl (Xopenex) 1.25 mg NEB QIDRT [facility] Last Admin: 09/06/19 07:01 Dose: 1.25 mg Loperamide HCl (Imodium) 2 mg PO Q4H PRN PRN Reason: Diarrhea Lorazepam (Ativan) 1 mg IVPUSH Q4H PRN PRN Reason: Nausea/Vomiting Last Admin: 09/05/19 23:53 Dose: 1 mg Lorazepam (Ativan) 1 mg PO BEDTIME PRN PRN Reason: Sleep Last Admin: 09/04/19 21:55 Dose: 1 mg Losartan Potassium (Cozaar) 100 mg PO DAILY [facility] Last Admin: 09/06/19 08:35 Dose: 100 mg Magnesium Oxide (Magnesium Oxide) 400 mg PO BID [facility] Last Admin: 09/06/19 08:35 Dose: 400 mg Ondansetron HCl (Zofran Odt) 8 mg PO Q8H PRN PRN Reason: Nausea/Vomiting Last Admin: 09/04/19 21:17 Dose: 8 mg Pantoprazole Sodium (Protonix) 40 mg PO DAILY@0730 [facility] Last Admin: 09/06/19 08:35 Dose: 40 mg Sodium Chloride (Saline Flush) 10 ml FLUSH ASDIRECTED PRN PRN Reason: Keep Vein Open Last Admin: 09/06/19 03:11 Dose: 10 ml Discontinued Medications Cyclosporine (Restasis) 0 each EYEBOTH BID [facility] Last Admin: 09/01/19 17:02 Dose: Not Given Diphenhydramine HCl (Benadryl) 25 mg IVPUSH ONETIME ONE Stop: 08/31/19 13:10 Last Admin: 08/31/19 13:18 Dose: 25 mg Enoxaparin Sodium (Lovenox) 40 mg SUBCUT DAILY [facility] Last Admin: 08/31/19 21:54 Dose: Not Given Furosemide (Lasix) 20 mg IVPUSH NOW ONE Stop: 09/02/19 19:38 Last Admin: 09/02/19 19:51 Dose: 20 mg Furosemide (Lasix) 40 mg IVPUSH NOW ONE Stop: 09/04/19 10:45 Last Admin: 09/04/19 10:50 Dose: 40 mg Furosemide (Lasix) 20 mg IVPUSH NOW ONE Stop: 09/04/19 16:54 Last Admin: 09/04/19 18:07 Dose: 20 mg Furosemide (Lasix) 40 mg IVPUSH NOW ONE Stop: 09/05/19 10:21 Last Admin: 09/05/19 10:30 Dose: 40 mg Hydrocortisone Sodium Succinate (Solu-Cortef) 100 mg IVPUSH ONETIME ONE Stop: 08/31/19 13:10 Last Admin: 08/31/19 13:19 Dose: 100 mg Hydromorphone HCl (Dilaudid) 1 mg IVPUSH ONETIME ONE Stop: 08/31/19 12:39 Last Admin: 08/31/19 12:54 Dose: 1 mg Hydromorphone HCl (Dilaudid) 1 mg IVPUSH ONETIME ONE Stop: 08/31/19 13:29 Last Admin: 08/31/19 14:03 Dose: 1 mg Hydromorphone HCl (Dilaudid) 1 mg IVPUSH ONETIME ONE Stop: 08/31/19 15:33 Last Admin: 08/31/19 15:58 Dose: 1 mg Hydromorphone HCl (Dilaudid) 0.5 mg IVPUSH Q4H PRN PRN Reason: Pain Last Admin: 08/31/19 18:13 Dose: 0.5 mg Hydromorphone HCl (Dilaudid) 0.5 mg IVPUSH Q2H PRN PRN Reason: Pain (moderate 4-6) Sodium Chloride (Normal Saline) 1,000 mls @ 150 [facility] Admin: 08/31/19 12:54 Dose: 150 mls/hr Sodium Chloride (Normal Saline) 71 mls @ 0 mls/hr IV ASDIRECTED [facility] Last Admin: 08/31/19 13:57 Dose: 3 mls/hr Potassium Chloride 40 meq/ (Premix) 100 mls @ 25 mls/hr IV ONETIME ONE Stop: 08/31/19 21:38 Last Admin: 08/31/19 21:54 Dose: Not Given Sodium Chloride (Normal Saline) 1,000 mls @ 125 [facility]ls[facility] Last Admin: 09/01/19 09:25 Dose: 125 mls/hr Potassium Chloride 20 meq/ (Premix) 100 mls @ 50 mls/hr IV ONETIME ONE Stop: 08/31/19 20:20 Last Admin: 08/31/19 18:39 Dose: 50 mls/hr Potassium Chloride 20 meq/ (Premix) 100 mls @ 50 mls/hr IV ONETIME ONE Stop: 08/31/19 22:29 Last Admin: 08/31/19 22:51 Dose: 50 mls/hr Magnesium Sulfate 2 gm/ Premix 50 mls @ 25 mls/hr IV Q6H [facility] Stop: 09/02/19 06:59 Last Admin: 09/02/19 05:44 Dose: 25 mls/hr Sodium Chloride (Normal Saline) 1,000 mls @ 50 mls/hr IV ASDIRECTED [facility] Last Admin: 09/01/19 17:10 Dose: 50 mls/hr Ciprofloxacin/Dextrose 400 mg/ (Premix) 200 mls @ 200 mls/hr IV Q24H [facility] Last Admin: 09/04/19 13:13 Dose: 200 mls/hr Ciprofloxacin/Dextrose 400 mg/ (Premix) 200 mls @ 200 mls/hr IV Q12H [facility] Stop: 09/05/19 06:00 Last Admin: 09/05/19 01:58 Dose: 200 mls/hr Potassium Chloride 20 meq/ (Premix) 100 mls @ 50 mls/hr IV ONETIME ONE Stop: 09/06/19 02:29 Last Admin: 09/06/19 00:53 Dose: 50 mls/hr Iopamidol (Isovue-300 (61%)) 100 ml IV . DIRECTED [facility] Last Admin: 08/31/19 13:57 Dose: 100 ml Lidocaine HCl (Xylocaine-Mpf 1%) 5 ml INJECT ONETIME ONE Stop: 08/31/19 18:16 Last Admin: 08/31/19 18:39 Dose: 5 ml Methylprednisolone Sodium Succinate (Solu-Medrol) 125 mg IVPUSH ONETIME ONE Stop: 09/02/19 12:01 Last Admin: 09/02/19 13:19 Dose: 125 mg Methylprednisolone Sodium Succinate (Solu-Medrol) 62.5 mg IVPUSH Q8H [facility] Last Admin: 09/04/19 04:20 Dose: 62.5 mg Potassium Gluconate [Potassium] 1 Tab Pom 1 tab PO BID [facility] Last Admin: 09/01/19 10:26 Dose: Not Given Ondansetron HCl (Zofran) 4 mg IVPUSH ONETIME ONE Stop: 08/31/19 12:43 Last Admin: 08/31/19 12:54 Dose: 4 mg Ondansetron HCl (Zofran) 8 mg IVPUSH ONETIME ONE Stop: 08/31/19 15:34 Last Admin: 08/31/19 15:55 Dose: 8 mg Ondansetron HCl (Zofran Odt) 4 mg PO Q6H PRN PRN Reason: Nausea Last Admin: 08/31/19 18:21 Dose: 4 mg Ondansetron HCl (Zofran Odt) 4 mg PO Q6H PRN PRN Reason: Nausea able to take PO Sodium Chloride (Saline Flush) 10 ml IV ASDIRECTED [facility] Last Admin: 08/31/19 13:57 Dose: 10 ml Sodium Chloride (Saline Flush) 10 ml FLUSH ONETIME ONE Stop: 08/31/19 13:10 Last Admin: 08/31/19 17:59 Dose: Not Given - Exam Quality Assessment: Supplemental Oxygen General: Alert, Oriented, Cooperative, No Acute Distress HEENT: Pupils Equal Lungs: Normal Respiratory Effort, Crackles (right lung base) Cardiovascular: Regular Rate, Regular Rhythm GI/Abdominal Exam: Soft, No Distention Extremities: Normal Inspection. No: Increased Warmth Skin: Warm, Dry Psy/Mental Status: Alert, Normal Affect - Problem List Review Problem List Initiated/Reviewed/Updated: Yes - My Orders Last 24 Hours: My Active Orders 09/05/19 09:56 Ibuprofen [Motrin] 600 mg PO Q6H PRN 09/05/19 Dinner Regular Diet [DIET] 09/06/19 00:17 Cardiac Monitoring [RC] .As Directed Overnight Pulse Oximetry [RC] Click to Edit Pulse Oximetry Continuous Monitoring [OM.PC] Routine 09/06/19 07:56 Chest 1V Frontal [CR] Routine 09/06/19 08:53 Potassium Chloride [Klor-Con M20] 40 meq PO ONETIME ONE 09/06/19 09:00 Doxycycline [Vibramycin] 100 mg PO BID 09/07/19 05:00 BASIC METABOLIC PANEL,BMP [CHEM] Timed CBC W/O DIFF,HEMOGRAM [HEME] Timed (1) - Plan Plan:: ASSESSMENT AND PLAN ARDS, suspected - complicated by acute respiratory failure with hypoxia. volume status acceptable. X-rayed stable. Examination benign but she is requiring a fair amount of oxygen. I suspect this is a result of her pancreatitis. She may have a component of bronchitis with cough and increased sputum. -Doxycycline -Scheduled nebulizers -Supplement oxygen PANCREATITIS, ACUTE ON CHRONIC - history of recurrent episodes as well as underlying chronic pancreatitis. This portion of her abdominal pain seems to have resolved. -Full liquids -Saline lock IV -Pain and nausea medication as needed PANCOLITIS - identified on CT scan, no previous history of chronic colitis. Pains has improved and diarrhea has resolved. Still suspect viral illness. -Symptomatic management Stage III chronic kidney disease - creatinine slightly higher today. MAINTENANCE ISSUES -DVT prophylaxis; SCUDS -GI prophylaxis; continue outpatient PPI therapy -Colon catheter; not indicated -Nutrition; regular diet DISPOSITION - anticipate discharge to home after the hospital stay. Edilberto Guerrero M.D.
--- NOTE | 2019-09-06 09:03 | CRLCR ---
INDICATION: Decreased O2 sats. TECHNIQUE: Upright portable AP image of the chest. COMPARISON: 09/04/2019. FINDINGS: Bilateral infiltrates, not obviously changed allowing for differences in inspiration and patient positioning. Heart size stable. IMPRESSION: Bilateral infiltrates, not obviously changed. Dictated by Guru Wong MD @ Sep 06 2019 8:58AM Signed by Dr. Guru Wong @ Sep 06 2019 9:00AM
[2019-09-06] MEDS ORDERED: Potassium Chloride 20 MEQ Tab.ER PO ONE (09:30)
[2019-09-06] MEDS: Doxycycline 100 MG Cap PO SCH ×2 (10:18→20:19)
[2019-09-06] MEDS: Albuterol/Ipratropium 3.0-0.5 MG/3 ML Neb Soln NEB PRN (23:38)
[2019-09-07] MEDS: Levalbuterol HCl 1.25 MG/3 ML Neb NEB PRN (01:34)
[2019-09-07] MEDS: HYDROmorphone 2 MG Tab PO PRN ×4 (04:10→23:03)
[2019-09-07] MEDS: Levalbuterol HCl 1.25 MG/3 ML Neb NEB SCH ×4 (07:01→21:42)
[2019-09-07] MEDS: Carvedilol 6.25 MG Tab PO SCH ×2 (07:28→17:16)
[2019-09-07] MEDS: Pantoprazole 40 MG Tab.CR PO SCH (07:28)
[2019-09-07] MEDS ORDERED: Potassium Chloride 20 MEQ Tab.ER PO ONE (09:00)
[2019-09-07] MEDS: cycloSPORINE Ophth Drops U/D Box of 30 EYEBOTH SCH ×2 (09:31→21:45)
[2019-09-07] MEDS: Losartan 50 MG Tab PO SCH (09:34)
[2019-09-07] MEDS: amLODIPine 10 MG Tab PO SCH (09:34)
[2019-09-07] MEDS: Doxycycline 100 MG Cap PO SCH ×2 (09:34→21:45)
[2019-09-07] MEDS: Magnesium Oxide 400 MG Tab PO SCH ×2 (09:34→21:45)
[2019-09-07] MEDS: Escitalopram 20 MG Tab PO SCH (10:03)
--- NOTE | 2019-09-07 10:26 | PCM.PN ---
- General Info Date of Service: 09/07/19 Subjective Update: No acute events overnight. Oxygenation is stable but not dramatically improved. Still feeling short of breath and coughing some. Still requiring 4-5 L of oxygen. No complaints of chest pain. She does report feeling tired. No fevers. Vital signs otherwise stable. Laboratory studies unremarkable. Functional Status: Reports: Pain Controlled - Review of Systems General: Reports: Weakness. Denies: Fever Pulmonary: Reports: Shortness of Breath, Cough - Patient Data Vitals - Most Recent: Last Vital Signs Temp 37.1 C 09/07/19 07:23 Pulse 61 09/07/19 07:28 Resp 16 09/07/19 07:23 BP 132/58 L 09/07/19 09:34 Pulse Ox 90 L 09/07/19 07:23 Weight - Most Recent: 74.389 kg I&O - Last 24 Hours: Intake & Output 09/06/19 09/07/19 09/07/19 22:59 06:59 14:59 Intake Total 600 Output Total 500 425 Balance 100 -425 Lab Results Last 24 Hours: Laboratory Results - last 24 hr 09/07/19 09/07/19 Range/Units 05:00 05:00 WBC 7.8 (4.5-11.0) K/uL RBC 3.31 (3.30-5.50) M/uL Hgb 11.6 L (12.0-15.0) g/dL Hct 32.9 L (36.0-48.0) % MCV 99 H (80-98) fL MCH 35 H (27-31) pg MCHC 35 (32-36) % Plt Count 142 L (150-400) K/uL Sodium 136 L (140-148) mmol/L Potassium 3.3 L (3.6-5.2) mmol/L Chloride 99 L (100-108) mmol/L Carbon Dioxide 28 (21-32) mmol/L Anion Gap 12.3 (5.0-14.0) mmol/L BUN 21 H (7-18) mg/dL Creatinine 1.0 (0.6-1.0) mg/dL Est Cr Clr Drug Dosing 55.18 mL/min Estimated GFR (MDRD) 57 L (>60) Glucose 126 H (74-106) mg/dL Calcium 9.0 (8.5-10.1) mg/dL Med Orders - Current: Current Medications Albuterol/Ipratropium (Duoneb 3.0-0.5 Mg/3 Ml) 3 ml NEB Q4H PRN PRN Reason: Shortness of Breath Last Admin: 09/06/19 23:38 Dose: 3 ml Amlodipine Besylate (Norvasc) 10 mg PO DAILY [facility] Last Admin: 09/07/19 09:34 Dose: 10 mg Carvedilol (Coreg) 6.25 mg PO BIDMEALS [facility] Last Admin: 09/07/19 07:28 Dose: 6.25 mg Cyclosporine (Restasis) 0 each EYEBOTH BID [facility] Last Admin: 09/07/19 09:31 Dose: 1 drop Diphenhydramine HCl (Benadryl) 50 mg IVPUSH ONETIME ONE Stop: 09/07/19 13:01 Doxycycline Hyclate (Vibramycin) 100 mg PO BID [facility] Last Admin: 09/07/19 09:34 Dose: 100 mg Escitalopram Oxalate (Lexapro) 20 mg PO DAILY [facility] Last Admin: 09/07/19 10:03 Dose: 20 mg Heparin Sodium (Porcine) (Heparin Lock Flush 100 Units/Ml) 500 units FLUSH ASDIRECTED PRN PRN Reason: IV Use Last Admin: 09/06/19 03:10 Dose: 500 units Hydrocortisone Sodium Succinate (Solu-Cortef) 200 mg IVPUSH Q4H [facility] Stop: 09/07/19 15:01 Hydromorphone HCl (Dilaudid) 1 mg IVPUSH Q2H PRN PRN Reason: Pain (severe 7-10) Last Admin: 09/02/19 22:51 Dose: 1 mg Hydromorphone HCl (Dilaudid) 0.5 mg IVPUSH Q2H PRN PRN Reason: Pain (moderate 4-6) Last Admin: 09/01/19 23:17 Dose: 0.5 mg Hydromorphone HCl (Dilaudid) 4 mg PO Q3H PRN PRN Reason: Pain (moderate 4-6) Last Admin: 09/07/19 04:10 Dose: 4 mg Ibuprofen (Motrin) 600 mg PO Q6H PRN PRN Reason: Pain/Fever Last Admin: 09/05/19 17:51 Dose: 600 mg Levalbuterol HCl (Xopenex) 1.25 mg NEB Q4H PRN PRN Reason: shortness of breath/wheezing Last Admin: 09/07/19 01:34 Dose: 1.25 mg Levalbuterol HCl (Xopenex) 1.25 mg NEB QIDRT [facility] Last Admin: 09/07/19 07:01 Dose: 1.25 mg Loperamide HCl (Imodium) 2 mg PO Q4H PRN PRN Reason: Diarrhea Lorazepam (Ativan) 1 mg IVPUSH Q4H PRN PRN Reason: Nausea/Vomiting Last Admin: 09/05/19 23:53 Dose: 1 mg Lorazepam (Ativan) 0.5 mg PO BEDTIME PRN PRN Reason: Sleep Losartan Potassium (Cozaar) 100 mg PO DAILY [facility] Last Admin: 09/07/19 09:34 Dose: 100 mg Magnesium Oxide (Magnesium Oxide) 400 mg PO BID [facility] Last Admin: 09/07/19 09:34 Dose: 400 mg Melatonin (Melatonin) 9 mg PO BEDTIME PRN PRN Reason: Sleep Ondansetron HCl (Zofran Odt) 8 mg PO Q8H PRN PRN Reason: Nausea/Vomiting Last Admin: 09/04/19 21:17 Dose: 8 mg Pantoprazole Sodium (Protonix) 40 mg PO DAILY@0730 [facility] Last Admin: 09/07/19 07:28 Dose: 40 mg Sodium Chloride (Saline Flush) 10 ml FLUSH ASDIRECTED PRN PRN Reason: Keep Vein Open Last Admin: 09/06/19 03:11 Dose: 10 ml Discontinued Medications Cyclosporine (Restasis) 0 each EYEBOTH BID [facility] Last Admin: 09/01/19 17:02 Dose: Not Given Diphenhydramine HCl (Benadryl) 25 mg IVPUSH ONETIME ONE Stop: 08/31/19 13:10 Last Admin: 08/31/19 13:18 Dose: 25 mg Enoxaparin Sodium (Lovenox) 40 mg SUBCUT DAILY [facility] Last Admin: 08/31/19 21:54 Dose: Not Given Furosemide (Lasix) 20 mg IVPUSH NOW ONE Stop: 09/02/19 19:38 Last Admin: 09/02/19 19:51 Dose: 20 mg Furosemide (Lasix) 40 mg IVPUSH NOW ONE Stop: 09/04/19 10:45 Last Admin: 09/04/19 10:50 Dose: 40 mg Furosemide (Lasix) 20 mg IVPUSH NOW ONE Stop: 09/04/19 16:54 Last Admin: 09/04/19 18:07 Dose: 20 mg Furosemide (Lasix) 40 mg IVPUSH NOW ONE Stop: 09/05/19 10:21 Last Admin: 09/05/19 10:30 Dose: 40 mg Hydrocortisone Sodium Succinate (Solu-Cortef) 100 mg IVPUSH ONETIME ONE Stop: 08/31/19 13:10 Last Admin: 08/31/19 13:19 Dose: 100 mg Hydromorphone HCl (Dilaudid) 1 mg IVPUSH ONETIME ONE Stop: 08/31/19 12:39 Last Admin: 08/31/19 12:54 Dose: 1 mg Hydromorphone HCl (Dilaudid) 1 mg IVPUSH ONETIME ONE Stop: 08/31/19 13:29 Last Admin: 08/31/19 14:03 Dose: 1 mg Hydromorphone HCl (Dilaudid) 1 mg IVPUSH ONETIME ONE Stop: 08/31/19 15:33 Last Admin: 08/31/19 15:58 Dose: 1 mg Hydromorphone HCl (Dilaudid) 0.5 mg IVPUSH Q4H PRN PRN Reason: Pain Last Admin: 08/31/19 18:13 Dose: 0.5 mg Hydromorphone HCl (Dilaudid) 0.5 mg IVPUSH Q2H PRN PRN Reason: Pain (moderate 4-6) Sodium Chloride (Normal Saline) 1,000 mls @ 150 mls/hr IV ASDIRECTED [facility] Last Admin: 08/31/19 12:54 Dose: 150 mls/hr Sodium Chloride (Normal Saline) 71 mls @ 0 mls/hr IV ASDIRECTED [facility] Last Admin: 08/31/19 13:57 Dose: 3 mls/hr Potassium Chloride 40 meq/ (Premix) 100 mls @ 25 mls/hr IV ONETIME ONE Stop: 08/31/19 21:38 Last Admin: 08/31/19 21:54 Dose: Not Given Sodium Chloride (Normal Saline) 1,000 mls @ 125 mls/hr IV ASDIRECTED [facility] Last Admin: 09/01/19 09:25 Dose: 125 mls/hr Potassium Chloride 20 meq/ (Premix) 100 mls @ 50 mls/hr IV ONETIME ONE Stop: 08/31/19 20:20 Last Admin: 08/31/19 18:39 Dose: 50 mls/hr Potassium Chloride 20 meq/ (Premix) 100 mls @ 50 mls/hr IV ONETIME ONE Stop: 08/31/19 22:29 Last Admin: 08/31/19 22:51 Dose: 50 mls/hr Magnesium Sulfate 2 gm/ Premix 50 mls @ 25 mls/hr IV Q6H [facility] Stop: 09/02/19 06:59 Last Admin: 09/02/19 05:44 Dose: 25 mls/hr Sodium Chloride (Normal Saline) 1,000 mls @ 50 mls/hr IV ASDIRECTED [facility] Last Admin: 09/01/19 17:10 Dose: 50 mls/hr Ciprofloxacin/Dextrose 400 mg/ (Premix) 200 mls @ 200 mls/hr IV Q24H [facility] Last Admin: 09/04/19 13:13 Dose: 200 mls/hr Ciprofloxacin/Dextrose 400 mg/ (Premix) 200 mls @ 200 mls/hr IV Q12H [facility] Stop: 09/05/19 06:00 Last Admin: 09/05/19 01:58 Dose: 200 mls/hr Potassium Chloride 20 meq/ (Premix) 100 mls @ 50 mls/hr IV ONETIME ONE Stop: 09/06/19 02:29 Last Admin: 09/06/19 00:53 Dose: 50 mls/hr Iopamidol (Isovue-300 (61%)) 100 ml IV . DIRECTED [facility] Last Admin: 08/31/19 13:57 Dose: 100 ml Lidocaine HCl (Xylocaine-Mpf 1%) 5 ml INJECT ONETIME ONE Stop: 08/31/19 18:16 Last Admin: 08/31/19 18:39 Dose: 5 ml Lorazepam (Ativan) 1 mg PO BEDTIME PRN PRN Reason: Sleep Last Admin: 09/04/19 21:55 Dose: 1 mg Methylprednisolone Sodium Succinate (Solu-Medrol) 125 mg IVPUSH ONETIME ONE Stop: 09/02/19 12:01 Last Admin: 09/02/19 13:19 Dose: 125 mg Methylprednisolone Sodium Succinate (Solu-Medrol) 62.5 mg IVPUSH Q8H [facility] Last Admin: 09/04/19 04:20 Dose: 62.5 mg Potassium Gluconate [Potassium] 1 Tab Pom 1 tab PO BID [facility] Last Admin: 09/01/19 10:26 Dose: Not Given Ondansetron HCl (Zofran) 4 mg IVPUSH ONETIME ONE Stop: 08/31/19 12:43 Last Admin: 08/31/19 12:54 Dose: 4 mg Ondansetron HCl (Zofran) 8 mg IVPUSH ONETIME ONE Stop: 08/31/19 15:34 Last Admin: 08/31/19 15:55 Dose: 8 mg Ondansetron HCl (Zofran Odt) 4 mg PO Q6H PRN PRN Reason: Nausea Last Admin: 08/31/19 18:21 Dose: 4 mg Ondansetron HCl (Zofran Odt) 4 mg PO Q6H PRN PRN Reason: Nausea able to take PO Potassium Chloride (Klor-Con M20) 40 meq PO ONETIME ONE Stop: 09/06/19 09:31 Last Admin: 09/06/19 10:17 Dose: 40 meq Potassium Chloride (Klor-Con M20) 40 meq PO ONETIME ONE Stop: 09/07/19 09:01 Last Admin: 09/07/19 09:35 Dose: 40 meq Sodium Chloride (Saline Flush) 10 ml IV ASDIRECTED [facility] Last Admin: 08/31/19 13:57 Dose: 10 ml Sodium Chloride (Saline Flush) 10 ml FLUSH ONETIME ONE Stop: 08/31/19 13:10 Last Admin: 08/31/19 17:59 Dose: Not Given - Exam Quality Assessment: Supplemental Oxygen General: Alert, Oriented, Cooperative, Mild Distress Lungs: Clear to Auscultation, Normal Respiratory Effort. No: Rhonchi, Wheezing Cardiovascular: Regular Rate, Regular Rhythm GI/Abdominal Exam: Soft, No Distention Extremities: No Pedal Edema. No: Increased Warmth Skin: Warm, Dry Psy/Mental Status: Alert, Normal Affect - Problem List Review Problem List Initiated/Reviewed/Updated: Yes - My Orders Last 24 Hours: My Active Orders 09/07/19 10:24 LORazepam [Ativan] 0.5 mg PO BEDTIME PRN Melatonin 9 mg PO BEDTIME PRN 09/07/19 11:00 Hydrocortisone Sod Succinate [Solu-CORTEF] 200 mg IVPUSH Q4H 09/07/19 13:00 diphenhydrAMINE [Benadryl] 50 mg IVPUSH ONETIME ONE 09/07/19 16:00 Ang Chest [CT] Routine 09/08/19 05:00 BASIC METABOLIC PANEL,BMP [CHEM] Timed CBC W/O DIFF,HEMOGRAM [HEME] Timed (1) - Plan Plan:: ASSESSMENT AND PLAN ARDS, suspected - complicated by acute respiratory failure with hypoxia. volume status acceptable. Not dramatically better today and most significant issue is hypoxia and she is not tachycardic. D-dimer was elevated at more than 1000. Still suspect ARDS but will rule out pulmonary embolism. -Premedicate for IV contrast dye allergy -CT pulmonary angiogram -Doxycycline -Scheduled nebulizers -Supplement oxygen PANCREATITIS, ACUTE ON CHRONIC - history of recurrent episodes as well as underlying chronic pancreatitis. This portion of her abdominal pain seems to have resolved. -Full liquids -Saline lock IV -Pain and nausea medication as needed PANCOLITIS - identified on CT scan, no previous history of chronic colitis. Pain has improved and diarrhea has resolved. Still suspect viral illness. -Symptomatic management Stage III chronic kidney disease - creatinine back to baseline. MAINTENANCE ISSUES -DVT prophylaxis; SCUDS -GI prophylaxis; continue outpatient PPI therapy -Colon catheter; not indicated -Nutrition; regular diet DISPOSITION - anticipate discharge to home after the hospital stay. Edilberto Guerrero M.D.
[2019-09-07] MEDS ORDERED: LORazepam 0.5 MG Tab PO PRN (10:30)
[2019-09-07] MEDS: Hydrocortisone Sodium Succinate 100 MG/2 ML SDV IVPUSH SCH ×2 (11:43→14:51)
[2019-09-07] MEDS ORDERED: Sodium Chloride 0.9% 10 ML Syringe FLUSH ONE (12:28)
[2019-09-07] MEDS ORDERED: Sodium Chloride 0.9% 100 ML IV SCH (12:30)
[2019-09-07] MEDS ORDERED: Iopamidol 755 Mg/ML 100 ML Bottle IV SCH (12:30)
[2019-09-07] MEDS ORDERED: diphenhydrAMINE 50 MG/ML SDV IVPUSH ONE (13:00)
[2019-09-07] MEDS: Sodium Chloride 0.9% 10 ML Syringe FLUSH PRN (17:04)
--- NOTE | 2019-09-07 17:54 | CRLCT ---
HISTORY: Respiratory failure. Elevated D-dimer. TECHNIQUE: Intravenous contrast enhanced CT of the chest. 100 mL of Isovue-370 intravenous contrast administered. COMPARISON: 09/05/2019. 08/31/2019. FINDINGS: Right-sided Port-A-Cath. No thoracic aortic aneurysm or dissection. Coronary arteriosclerotic vascular calcifications are present. There is no acute pulmonary embolism. No change in mildly prominent mediastinal lymph nodes in the prevascular and paratracheal distributions. There are small bilateral pleural effusions, unchanged on the right and slightly increased on the left. Progression in bilateral lung infiltrates or edema. There is likely underlying pulmonary emphysema. There is no pneumothorax. - Limited evaluation of the upper abdomen demonstrates changes of prior cholecystectomy. There is dilatation of the biliary system which may relate to postcholecystectomy reservoir effect. There is lower density in the region of the portal vein which is not well evaluated by this chest CT. This likely relates to the thrombus seen on prior CT abdomen and pelvis from 08/31/2019. Heterogeneous appearance of the pancreas. Degenerative changes of the spine. IMPRESSION: 1. No acute pulmonary embolism. 2. Progressive bilateral lung infiltrates versus edema. 3. Small bilateral pleural effusions, slightly increased on the left. 4. Coexistent emphysema. 5. Decreased attenuation in the region of the portal vein, not well evaluated by this chest CT. This likely relates to the thrombus seen on the prior CT abdomen and pelvis study. Pancreas is heterogeneous in appearance. Dictated by Sam Valdez MD @ 09/07/2019 5:53:36 PM Please note that all CT scans at this facility use dose modulation, iterative reconstruction, and/or weight-based dosing when appropriate to reduce radiation dose to as low as reasonably achievable. Dictated by: Sam Valdez MD @ 09/07/2019 17:53:50 (Electronically Signed)
[2019-09-07] MEDS: Melatonin 3 MG Tab PO PRN (21:45)
[2019-09-08] MEDS: HYDROmorphone 2 MG Tab PO PRN ×4 (02:26→18:23)
[2019-09-08] MEDS: Levalbuterol HCl 1.25 MG/3 ML Neb NEB SCH ×4 (07:38→20:43)
[2019-09-08] MEDS: Carvedilol 6.25 MG Tab PO SCH ×2 (08:29→18:22)
[2019-09-08] MEDS: Pantoprazole 40 MG Tab.CR PO SCH (08:29)
[2019-09-08] MEDS: Losartan 50 MG Tab PO SCH (08:30)
[2019-09-08] MEDS: Magnesium Oxide 400 MG Tab PO SCH ×2 (08:30→20:38)
[2019-09-08] MEDS: amLODIPine 10 MG Tab PO SCH (08:30)
[2019-09-08] MEDS: Escitalopram 20 MG Tab PO SCH (08:30)
[2019-09-08] MEDS: cycloSPORINE Ophth Drops U/D Box of 30 EYEBOTH SCH ×2 (08:31→20:38)
[2019-09-08] MEDS: Doxycycline 100 MG Cap PO SCH ×2 (08:31→20:38)
[2019-09-08] MEDS ORDERED: Furosemide 40 MG/4 ML VIAL IVPUSH ONE (13:53)
--- NOTE | 2019-09-08 14:41 | PCM.PN ---
- General Info Date of Service: 09/08/19 Subjective Update: Ms. Ma was originally admitted with pancreatitis and now has developed bilateral pulmonary infiltrates, infection versus fluid. To this point there has been no evidence of underlying infectious process, fluid is felt to be secondary to ARDS. She has had ongoing hypoxia related to this. Continues to require 5-6 L of supplemental oxygen via nasal cannula. CT scan of the chest was obtained yesterday and did show the infiltrates versus fluid, no evidence of pulmonary emboli. Vital signs have remained stable and she has been afebrile. Functional Status: Reports: Tolerating Diet, Ambulating, Urinating - Review of Systems General: Reports: Weakness. Denies: Fever, Chills Pulmonary: Reports: Shortness of Breath, Wheezing. Denies: Pleuritic Chest Pain , Cough, Sputum, Hemoptysis Cardiovascular: Reports: Dyspnea on Exertion. Denies: Chest Pain, Palpitations , Orthopnea, PND, Edema, Lightheadedness Gastrointestinal: Reports: No Symptoms - Patient Data Vitals - Most Recent: Last Vital Signs Temp 97.2 F 09/08/19 09:00 Pulse 57 L 09/08/19 09:00 Resp 18 09/08/19 09:00 BP 104/49 L 09/08/19 09:00 Pulse Ox 90 L 09/08/19 09:00 Weight - Most Recent: 164 lb I&O - Last 24 Hours: Intake & Output 09/07/19 09/08/19 09/08/19 22:59 06:59 14:59 Intake Total 450 Output Total 700 100 Balance -700 -100 450 Lab Results Last 24 Hours: Laboratory Results - last 24 hr 09/08/19 09/08/19 Range/Units 05:36 05:36 WBC 6.1 (4.5-11.0) K/uL RBC 3.40 (3.30-5.50) M/uL Hgb 11.0 L (12.0-15.0) g/dL Hct 34.5 L (36.0-48.0) % MCV 102 H (80-98) fL MCH 32 H (27-31) pg MCHC 32 (32-36) % Plt Count 187 (150-400) K/uL Sodium 137 L (140-148) mmol/L Potassium 3.7 (3.6-5.2) mmol/L Chloride 99 L (100-108) mmol/L Carbon Dioxide 28 (21-32) mmol/L Anion Gap 13.7 (5.0-14.0) mmol/L BUN 19 H (7-18) mg/dL Creatinine 1.1 H (0.6-1.0) mg/dL Est Cr Clr Drug Dosing 50.16 mL/min Estimated GFR (MDRD) 51 L (>60) Glucose 175 H (74-106) mg/dL Calcium 8.9 (8.5-10.1) mg/dL Med Orders - Current: Current Medications Albuterol/Ipratropium (Duoneb 3.0-0.5 Mg/3 Ml) 3 ml NEB Q4H PRN PRN Reason: Shortness of Breath Last Admin: 09/06/19 23:38 Dose: 3 ml Amlodipine Besylate (Norvasc) 10 mg PO DAILY [facility] Last Admin: 09/08/19 08:30 Dose: 10 mg Carvedilol (Coreg) 6.25 mg PO BIDMEALS [facility] Last Admin: 09/08/19 08:29 Dose: 6.25 mg Cyclosporine (Restasis) 0 each EYEBOTH BID [facility] Last Admin: 09/08/19 08:31 Dose: 1 drop Doxycycline Hyclate (Vibramycin) 100 mg PO BID [facility] Last Admin: 09/08/19 08:31 Dose: 100 mg Escitalopram Oxalate (Lexapro) 20 mg PO DAILY [facility] Last Admin: 09/08/19 08:30 Dose: 20 mg Heparin Sodium (Porcine) (Heparin Lock Flush 100 Units/Ml) 500 units FLUSH ASDIRECTED PRN PRN Reason: IV Use Last Admin: 09/08/19 05:31 Dose: 500 units Hydromorphone HCl (Dilaudid) 4 mg PO Q3H PRN PRN Reason: Pain (moderate 4-6) Last Admin: 09/08/19 11:58 Dose: 4 mg Ibuprofen (Motrin) 600 mg PO Q6H PRN PRN Reason: Pain/Fever Last Admin: 09/05/19 17:51 Dose: 600 mg Levalbuterol HCl (Xopenex) 1.25 mg NEB Q4H PRN PRN Reason: shortness of breath/wheezing Last Admin: 09/07/19 01:34 Dose: 1.25 mg Levalbuterol HCl (Xopenex) 1.25 mg NEB QIDRT [facility] Last Admin: 09/08/19 10:47 Dose: Not Given Loperamide HCl (Imodium) 2 mg PO Q4H PRN PRN Reason: Diarrhea Losartan Potassium (Cozaar) 100 mg PO DAILY [facility] Last Admin: 09/08/19 08:30 Dose: 100 mg Magnesium Oxide (Magnesium Oxide) 400 mg PO BID [facility] Last Admin: 09/08/19 08:30 Dose: 400 mg Melatonin (Melatonin) 9 mg PO BEDTIME PRN PRN Reason: Sleep Last Admin: 09/07/19 21:45 Dose: 9 mg Ondansetron HCl (Zofran Odt) 8 mg PO Q8H PRN PRN Reason: Nausea/Vomiting Last Admin: 09/04/19 21:17 Dose: 8 mg Pantoprazole Sodium (Protonix) 40 mg PO DAILY@0730 [facility] Last Admin: 09/08/19 08:29 Dose: 40 mg Sodium Chloride (Saline Flush) 10 ml FLUSH ASDIRECTED PRN PRN Reason: Keep Vein Open Last Admin: 09/07/19 17:04 Dose: 10 ml Discontinued Medications Cyclosporine (Restasis) 0 each EYEBOTH BID [facility] Last Admin: 09/01/19 17:02 Dose: Not Given Diphenhydramine HCl (Benadryl) 25 mg IVPUSH ONETIME ONE Stop: 08/31/19 13:10 Last Admin: 08/31/19 13:18 Dose: 25 mg Diphenhydramine HCl (Benadryl) 50 mg IVPUSH ONETIME ONE Stop: 09/07/19 13:01 Last Admin: 09/07/19 13:03 Dose: 50 mg Enoxaparin Sodium (Lovenox) 40 mg SUBCUT DAILY [facility] Last Admin: 08/31/19 21:54 Dose: Not Given Furosemide (Lasix) 20 mg IVPUSH NOW ONE Stop: 09/02/19 19:38 Last Admin: 09/02/19 19:51 Dose: 20 mg Furosemide (Lasix) 40 mg IVPUSH NOW ONE Stop: 09/04/19 10:45 Last Admin: 09/04/19 10:50 Dose: 40 mg Furosemide (Lasix) 20 mg IVPUSH NOW ONE Stop: 09/04/19 16:54 Last Admin: 09/04/19 18:07 Dose: 20 mg Furosemide (Lasix) 40 mg IVPUSH NOW ONE Stop: 09/05/19 10:21 Last Admin: 09/05/19 10:30 Dose: 40 mg Furosemide (Lasix) 40 mg IVPUSH NOW ONE Stop: 09/08/19 13:54 Hydrocortisone Sodium Succinate (Solu-Cortef) 100 mg IVPUSH ONETIME ONE Stop: 08/31/19 13:10 Last Admin: 08/31/19 13:19 Dose: 100 mg Hydrocortisone Sodium Succinate (Solu-Cortef) 200 mg IVPUSH Q4H [facility] Stop: 09/07/19 15:01 Last Admin: 09/07/19 14:51 Dose: 200 mg Hydromorphone HCl (Dilaudid) 1 mg IVPUSH ONETIME ONE Stop: 08/31/19 12:39 Last Admin: 08/31/19 12:54 Dose: 1 mg Hydromorphone HCl (Dilaudid) 1 mg IVPUSH ONETIME ONE Stop: 08/31/19 13:29 Last Admin: 08/31/19 14:03 Dose: 1 mg Hydromorphone HCl (Dilaudid) 1 mg IVPUSH ONETIME ONE Stop: 08/31/19 15:33 Last Admin: 08/31/19 15:58 Dose: 1 mg Hydromorphone HCl (Dilaudid) 0.5 mg IVPUSH Q4H PRN PRN Reason: Pain Last Admin: 08/31/19 18:13 Dose: 0.5 mg Hydromorphone HCl (Dilaudid) 0.5 mg IVPUSH Q2H PRN PRN Reason: Pain (moderate 4-6) Hydromorphone HCl (Dilaudid) 1 mg IVPUSH Q2H PRN PRN Reason: Pain (severe 7-10) Last Admin: 09/02/19 22:51 Dose: 1 mg Hydromorphone HCl (Dilaudid) 0.5 mg IVPUSH Q2H PRN PRN Reason: Pain (moderate 4-6) Last Admin: 09/01/19 23:17 Dose: 0.5 mg Sodium Chloride (Normal Saline) 1,000 mls @ 150 mls/hr IV ASDIRECTED [facility] Last Admin: 08/31/19 12:54 Dose: 150 mls/hr Sodium Chloride (Normal Saline) 71 mls @ 0 mls/hr IV ASDIRECTED [facility] Last Admin: 08/31/19 13:57 Dose: 3 mls/hr Potassium Chloride 40 meq/ (Premix) 100 mls @ 25 mls/hr IV ONETIME ONE Stop: 08/31/19 21:38 Last Admin: 08/31/19 21:54 Dose: Not Given Sodium Chloride (Normal Saline) 1,000 mls @ 125 mls/hr IV ASDIRECTED [facility] Last Admin: 09/01/19 09:25 Dose: 125 mls/hr Potassium Chloride 20 meq/ (Premix) 100 mls @ 50 mls/hr IV ONETIME ONE Stop: 08/31/19 20:20 Last Admin: 08/31/19 18:39 Dose: 50 mls/hr Potassium Chloride 20 meq/ (Premix) 100 mls @ 50 mls/hr IV ONETIME ONE Stop: 08/31/19 22:29 Last Admin: 08/31/19 22:51 Dose: 50 mls/hr Magnesium Sulfate 2 gm/ Premix 50 mls @ 25 mls/hr IV Q6H [facility] Stop: 09/02/19 06:59 Last Admin: 09/02/19 05:44 Dose: 25 mls/hr Sodium Chloride (Normal Saline) 1,000 mls @ 50 mls/hr IV ASDIRECTED [facility] Last Admin: 09/01/19 17:10 Dose: 50 mls/hr Ciprofloxacin/Dextrose 400 mg/ (Premix) 200 mls @ 200 mls/hr IV Q24H [facility] Last Admin: 09/04/19 13:13 Dose: 200 mls/hr Ciprofloxacin/Dextrose 400 mg/ (Premix) 200 mls @ 200 mls/hr IV Q12H [facility] Stop: 09/05/19 06:00 Last Admin: 09/05/19 01:58 Dose: 200 mls/hr Potassium Chloride 20 meq/ (Premix) 100 mls @ 50 mls/hr IV ONETIME ONE Stop: 09/06/19 02:29 Last Admin: 09/06/19 00:53 Dose: 50 mls/hr Sodium Chloride (Normal Saline) 100 mls @ 3 mls/sec IV ASDIRECTED [facility] Stop: 09/07/19 12:31 Last Admin: 09/07/19 17:04 Dose: 3 mls/sec Iopamidol (Isovue-300 (61%)) 100 ml IV . DIRECTED [facility] Last Admin: 08/31/19 13:57 Dose: 100 ml Iopamidol (Isovue-370 (76%)) 100 ml IV . DIRECTED [facility] Stop: 09/07/19 12:31 Last Admin: 09/07/19 17:04 Dose: 100 ml Lidocaine HCl (Xylocaine-Mpf 1%) 5 ml INJECT ONETIME ONE Stop: 08/31/19 18:16 Last Admin: 08/31/19 18:39 Dose: 5 ml Lorazepam (Ativan) 1 mg IVPUSH Q4H PRN PRN Reason: Nausea/Vomiting Last Admin: 09/05/19 23:53 Dose: 1 mg Lorazepam (Ativan) 1 mg PO BEDTIME PRN PRN Reason: Sleep Last Admin: 09/04/19 21:55 Dose: 1 mg Lorazepam (Ativan) 0.5 mg PO BEDTIME PRN PRN Reason: SLEEP Methylprednisolone Sodium Succinate (Solu-Medrol) 125 mg IVPUSH ONETIME ONE Stop: 09/02/19 12:01 Last Admin: 09/02/19 13:19 Dose: 125 mg Methylprednisolone Sodium Succinate (Solu-Medrol) 62.5 mg IVPUSH Q8H [facility] Last Admin: 09/04/19 04:20 Dose: 62.5 mg Potassium Gluconate [Potassium] 1 Tab Pom 1 tab PO BID [facility] Last Admin: 09/01/19 10:26 Dose: Not Given Ondansetron HCl (Zofran) 4 mg IVPUSH ONETIME ONE Stop: 08/31/19 12:43 Last Admin: 08/31/19 12:54 Dose: 4 mg Ondansetron HCl (Zofran) 8 mg IVPUSH ONETIME ONE Stop: 08/31/19 15:34 Last Admin: 08/31/19 15:55 Dose: 8 mg Ondansetron HCl (Zofran Odt) 4 mg PO Q6H PRN PRN Reason: Nausea Last Admin: 08/31/19 18:21 Dose: 4 mg Ondansetron HCl (Zofran Odt) 4 mg PO Q6H PRN PRN Reason: Nausea able to take PO Potassium Chloride (Klor-Con M20) 40 meq PO ONETIME ONE Stop: 09/06/19 09:31 Last Admin: 09/06/19 10:17 Dose: 40 meq Potassium Chloride (Klor-Con M20) 40 meq PO ONETIME ONE Stop: 09/07/19 09:01 Last Admin: 09/07/19 09:35 Dose: 40 meq Sodium Chloride (Saline Flush) 10 ml IV ASDIRECTED [facility] Last Admin: 08/31/19 13:57 Dose: 10 ml Sodium Chloride (Saline Flush) 10 ml FLUSH ONETIME ONE Stop: 08/31/19 13:10 Last Admin: 08/31/19 17:59 Dose: Not Given Sodium Chloride (Saline Flush) 10 ml FLUSH ONETIME ONE Stop: 09/07/19 12:29 Last Admin: 09/07/19 13:04 Dose: 10 ml - Exam Quality Assessment: DVT Prophylaxis General: Alert, Oriented, Cooperative, Mild Distress Lungs: Clear to Auscultation, Normal Respiratory Effort, Decreased Breath Sounds Cardiovascular: Regular Rate, Regular Rhythm, No Murmurs GI/Abdominal Exam: Soft, Non-Tender, No Organomegaly, No Distention Extremities: Non-Tender, No Pedal Edema - Problem List Review Problem List Initiated/Reviewed/Updated: Yes - Plan Plan:: ASSESSMENT AND PLAN ARDS, suspected - complicated by acute respiratory failure with hypoxia. volume status acceptable. Not dramatically better today and most significant issue is hypoxia and she is not tachycardic. CT scan obtained yesterday showed no evidence of pulmonary emboli -?40 milligrams IV today -Doxycycline -Scheduled nebulizers -Supplement oxygen PANCREATITIS, ACUTE ON CHRONIC - history of recurrent episodes as well as underlying chronic pancreatitis. Resolved -Regular diet -Saline lock IV -Pain and nausea medication as needed PANCOLITIS - identified on CT scan, no previous history of chronic colitis. Pain has improved and diarrhea has resolved. Still suspect viral illness. -Symptomatic management Stage III chronic kidney disease - creatinine back to baseline. MAINTENANCE ISSUES -DVT prophylaxis; SCUDS -GI prophylaxis; continue outpatient PPI therapy -Colon catheter; not indicated -Nutrition; regular diet DISPOSITION - anticipate discharge to home after the hospital stay.
[2019-09-08] MEDS: Melatonin 3 MG Tab PO PRN (20:42)
[2019-09-09] MEDS: HYDROmorphone 2 MG Tab PO PRN ×4 (01:28→19:52)
[2019-09-09] MEDS: Levalbuterol HCl 1.25 MG/3 ML Neb NEB SCH ×4 (07:15→19:59)
[2019-09-09] MEDS: Ondansetron 4 MG Tab.DIS PO PRN (09:03)
[2019-09-09] MEDS ORDERED: Potassium Chloride 20 MEQ Tab.ER PO ONE ×3 (10:00→17:00)
[2019-09-09] MEDS: Magnesium Sulfate/Water 2 GM in Premix Bag 1 BAG IV SCH ×3 (10:30→22:25)
[2019-09-09] MEDS: cycloSPORINE Ophth Drops U/D Box of 30 EYEBOTH SCH ×2 (10:30→20:00)
[2019-09-09] MEDS: Pantoprazole 40 MG Tab.CR PO SCH (10:31)
[2019-09-09] MEDS: Escitalopram 20 MG Tab PO SCH (10:31)
[2019-09-09] MEDS: Carvedilol 6.25 MG Tab PO SCH ×2 (10:32→16:17)
[2019-09-09] MEDS: Losartan 50 MG Tab PO SCH (10:34)
[2019-09-09] MEDS: Magnesium Oxide 400 MG Tab PO SCH ×2 (10:35→20:00)
[2019-09-09] MEDS: Doxycycline 100 MG Cap PO SCH ×2 (10:36→20:00)
[2019-09-09] MEDS: amLODIPine 10 MG Tab PO SCH (10:36)
--- NOTE | 2019-09-09 13:52 | PCM.PN ---
- General Info Date of Service: 09/09/19 Subjective Update: Ms. Ma shown improvement over last 24 hours with blood shortness of breath and currently requiring less supplemental oxygen. She is had a fair diuresis and tolerated that fairly well. There has been a mild increase in creatinine as well as hypokalemia and hypomagnesemia. Functional Status: Reports: Tolerating Diet, Ambulating, Urinating - Review of Systems General: Reports: Weakness. Denies: Fever, Chills Pulmonary: Reports: Shortness of Breath. Denies: Pleuritic Chest Pain, Cough, Sputum, Hemoptysis, Wheezing Cardiovascular: Reports: Dyspnea on Exertion. Denies: Chest Pain, Palpitations , Orthopnea, PND, Edema, Lightheadedness Gastrointestinal: Reports: No Symptoms - Patient Data Vitals - Most Recent: Last Vital Signs Temp 98.0 F 09/09/19 10:48 Pulse 59 L 09/09/19 10:48 Resp 18 09/09/19 10:48 BP 105/55 L 09/09/19 10:48 Pulse Ox 100 09/09/19 10:48 Weight - Most Recent: 164 lb I&O - Last 24 Hours: Intake & Output 09/08/19 09/09/19 09/09/19 22:59 06:59 14:59 Intake Total 50 Output Total 1800 100 100 Balance -1800 -100 -50 Lab Results Last 24 Hours: Laboratory Results - last 24 hr 09/09/19 Range/Units 06:07 Sodium 139 L (140-148) mmol/L Potassium 3.0 L (3.6-5.2) mmol/L Chloride 100 (100-108) mmol/L Carbon Dioxide 31 (21-32) mmol/L Anion Gap 11.0 (5.0-14.0) mmol/L BUN 17 (7-18) mg/dL Creatinine 1.2 H (0.6-1.0) mg/dL Est Cr Clr Drug Dosing 45.98 mL/min Estimated GFR (MDRD) 46 L (>60) Glucose 94 (74-106) mg/dL Calcium 8.9 (8.5-10.1) mg/dL Magnesium 1.3 L (1.8-2.4) mg/dL Med Orders - Current: Current Medications Albuterol/Ipratropium (Duoneb 3.0-0.5 Mg/3 Ml) 3 ml NEB Q4H PRN PRN Reason: Shortness of Breath Last Admin: 09/06/19 23:38 Dose: 3 ml Amlodipine Besylate (Norvasc) 10 mg PO DAILY [facility] Last Admin: 09/09/19 10:36 Dose: 10 mg Carvedilol (Coreg) 6.25 mg PO BIDMEALS [facility] Last Admin: 09/09/19 10:32 Dose: 6.25 mg Cyclosporine (Restasis) 0 each EYEBOTH BID [facility] Last Admin: 09/09/19 10:30 Dose: 1 drop Doxycycline Hyclate (Vibramycin) 100 mg PO BID [facility] Last Admin: 09/09/19 10:36 Dose: 100 mg Escitalopram Oxalate (Lexapro) 20 mg PO DAILY [facility] Last Admin: 09/09/19 10:31 Dose: 20 mg Furosemide (Lasix) 40 mg IVPUSH NOW ONE Stop: 09/09/19 14:01 Last Admin: 09/09/19 13:43 Dose: 40 mg Heparin Sodium (Porcine) (Heparin Lock Flush 100 Units/Ml) 500 units FLUSH ASDIRECTED PRN PRN Reason: IV Use Last Admin: 09/09/19 05:47 Dose: 500 units Hydromorphone HCl (Dilaudid) 4 mg PO Q3H PRN PRN Reason: Pain (moderate 4-6) Last Admin: 09/09/19 12:06 Dose: 4 mg Magnesium Sulfate 2 gm/ Premix 50 mls @ 25 mls/hr IV Q6H [facility] Stop: 09/10/19 05:59 Last Admin: 09/09/19 10:30 Dose: 25 mls/hr Ibuprofen (Motrin) 600 mg PO Q6H PRN PRN Reason: Pain/Fever Last Admin: 09/05/19 17:51 Dose: 600 mg Levalbuterol HCl (Xopenex) 1.25 mg NEB Q4H PRN PRN Reason: shortness of breath/wheezing Last Admin: 09/07/19 01:34 Dose: 1.25 mg Levalbuterol HCl (Xopenex) 1.25 mg NEB QIDRT [facility] Last Admin: 09/09/19 10:45 Dose: 1.25 mg Loperamide HCl (Imodium) 2 mg PO Q4H PRN PRN Reason: Diarrhea Losartan Potassium (Cozaar) 100 mg PO DAILY [facility] Last Admin: 09/09/19 10:34 Dose: 100 mg Magnesium Oxide (Magnesium Oxide) 400 mg PO BID [facility] Last Admin: 09/09/19 10:35 Dose: 400 mg Melatonin (Melatonin) 9 mg PO BEDTIME PRN PRN Reason: Sleep Last Admin: 09/08/19 20:42 Dose: 9 mg Ondansetron HCl (Zofran Odt) 8 mg PO Q8H PRN PRN Reason: Nausea/Vomiting Last Admin: 09/09/19 09:03 Dose: 8 mg Pantoprazole Sodium (Protonix) 40 mg PO DAILY@0730 [facility] Last Admin: 09/09/19 10:31 Dose: 40 mg Potassium Chloride (Klor-Con M20) 40 meq PO ONETIME ONE Stop: 09/09/19 17:01 Sodium Chloride (Saline Flush) 10 ml FLUSH ASDIRECTED PRN PRN Reason: Keep Vein Open Last Admin: 09/07/19 17:04 Dose: 10 ml Discontinued Medications Cyclosporine (Restasis) 0 each EYEBOTH BID [facility] Last Admin: 09/01/19 17:02 Dose: Not Given Diphenhydramine HCl (Benadryl) 25 mg IVPUSH ONETIME ONE Stop: 08/31/19 13:10 Last Admin: 08/31/19 13:18 Dose: 25 mg Diphenhydramine HCl (Benadryl) 50 mg IVPUSH ONETIME ONE Stop: 09/07/19 13:01 Last Admin: 09/07/19 13:03 Dose: 50 mg Enoxaparin Sodium (Lovenox) 40 mg SUBCUT DAILY [facility] Last Admin: 08/31/19 21:54 Dose: Not Given Furosemide (Lasix) 20 mg IVPUSH NOW ONE Stop: 09/02/19 19:38 Last Admin: 09/02/19 19:51 Dose: 20 mg Furosemide (Lasix) 40 mg IVPUSH NOW ONE Stop: 09/04/19 10:45 Last Admin: 09/04/19 10:50 Dose: 40 mg Furosemide (Lasix) 20 mg IVPUSH NOW ONE Stop: 09/04/19 16:54 Last Admin: 09/04/19 18:07 Dose: 20 mg Furosemide (Lasix) 40 mg IVPUSH NOW ONE Stop: 09/05/19 10:21 Last Admin: 09/05/19 10:30 Dose: 40 mg Furosemide (Lasix) 40 mg IVPUSH NOW ONE Stop: 09/08/19 13:54 Last Admin: 09/08/19 14:35 Dose: 40 mg Hydrocortisone Sodium Succinate (Solu-Cortef) 100 mg IVPUSH ONETIME ONE Stop: 08/31/19 13:10 Last Admin: 08/31/19 13:19 Dose: 100 mg Hydrocortisone Sodium Succinate (Solu-Cortef) 200 mg IVPUSH Q4H [facility] Stop: 09/07/19 15:01 Last Admin: 09/07/19 14:51 Dose: 200 mg Hydromorphone HCl (Dilaudid) 1 mg IVPUSH ONETIME ONE Stop: 08/31/19 12:39 Last Admin: 08/31/19 12:54 Dose: 1 mg Hydromorphone HCl (Dilaudid) 1 mg IVPUSH ONETIME ONE Stop: 08/31/19 13:29 Last Admin: 08/31/19 14:03 Dose: 1 mg Hydromorphone HCl (Dilaudid) 1 mg IVPUSH ONETIME ONE Stop: 08/31/19 15:33 Last Admin: 08/31/19 15:58 Dose: 1 mg Hydromorphone HCl (Dilaudid) 0.5 mg IVPUSH Q4H PRN PRN Reason: Pain Last Admin: 08/31/19 18:13 Dose: 0.5 mg Hydromorphone HCl (Dilaudid) 0.5 mg IVPUSH Q2H PRN PRN Reason: Pain (moderate 4-6) Hydromorphone HCl (Dilaudid) 1 mg IVPUSH Q2H PRN PRN Reason: Pain (severe 7-10) Last Admin: 09/02/19 22:51 Dose: 1 mg Hydromorphone HCl (Dilaudid) 0.5 mg IVPUSH Q2H PRN PRN Reason: Pain (moderate 4-6) Last Admin: 09/01/19 23:17 Dose: 0.5 mg Sodium Chloride (Normal Saline) 1,000 mls @ 150 mls/hr IV ASDIRECTED [facility] Last Admin: 08/31/19 12:54 Dose: 150 mls/hr Sodium Chloride (Normal Saline) 71 mls @ 0 mls/hr IV ASDIRECTED [facility] Last Admin: 08/31/19 13:57 Dose: 3 mls/hr Potassium Chloride 40 meq/ (Premix) 100 mls @ 25 mls/hr IV ONETIME ONE Stop: 08/31/19 21:38 Last Admin: 08/31/19 21:54 Dose: Not Given Sodium Chloride (Normal Saline) 1,000 mls @ 125 mls/hr IV ASDIRECTED [facility] Last Admin: 09/01/19 09:25 Dose: 125 mls/hr Potassium Chloride 20 meq/ (Premix) 100 mls @ 50 mls/hr IV ONETIME ONE Stop: 08/31/19 20:20 Last Admin: 08/31/19 18:39 Dose: 50 mls/hr Potassium Chloride 20 meq/ (Premix) 100 mls @ 50 mls/hr IV ONETIME ONE Stop: 08/31/19 22:29 Last Admin: 08/31/19 22:51 Dose: 50 mls/hr Magnesium Sulfate 2 gm/ Premix 50 mls @ 25 mls/hr IV Q6H [facility] Stop: 09/02/19 06:59 Last Admin: 09/02/19 05:44 Dose: 25 mls/hr Sodium Chloride (Normal Saline) 1,000 mls @ 50 mls/hr IV ASDIRECTED [facility] Last Admin: 09/01/19 17:10 Dose: 50 mls/hr Ciprofloxacin/Dextrose 400 mg/ (Premix) 200 mls @ 200 mls/hr IV Q24H [facility] Last Admin: 09/04/19 13:13 Dose: 200 mls/hr Ciprofloxacin/Dextrose 400 mg/ (Premix) 200 mls @ 200 mls/hr IV Q12H [facility] Stop: 09/05/19 06:00 Last Admin: 09/05/19 01:58 Dose: 200 mls/hr Potassium Chloride 20 meq/ (Premix) 100 mls @ 50 mls/hr IV ONETIME ONE Stop: 09/06/19 02:29 Last Admin: 09/06/19 00:53 Dose: 50 mls/hr Sodium Chloride (Normal Saline) 100 mls @ 3 mls/sec IV ASDIRECTED [facility] Stop: 09/07/19 12:31 Last Admin: 09/07/19 17:04 Dose: 3 mls/sec Iopamidol (Isovue-300 (61%)) 100 ml IV . DIRECTED [facility] Last Admin: 08/31/19 13:57 Dose: 100 ml Iopamidol (Isovue-370 (76%)) 100 ml IV . DIRECTED [facility] Stop: 09/07/19 12:31 Last Admin: 09/07/19 17:04 Dose: 100 ml Lidocaine HCl (Xylocaine-Mpf 1%) 5 ml INJECT ONETIME ONE Stop: 08/31/19 18:16 Last Admin: 08/31/19 18:39 Dose: 5 ml Lorazepam (Ativan) 1 mg IVPUSH Q4H PRN PRN Reason: Nausea/Vomiting Last Admin: 09/05/19 23:53 Dose: 1 mg Lorazepam (Ativan) 1 mg PO BEDTIME PRN PRN Reason: Sleep Last Admin: 09/04/19 21:55 Dose: 1 mg Lorazepam (Ativan) 0.5 mg PO BEDTIME PRN PRN Reason: SLEEP Methylprednisolone Sodium Succinate (Solu-Medrol) 125 mg IVPUSH ONETIME ONE Stop: 09/02/19 12:01 Last Admin: 09/02/19 13:19 Dose: 125 mg Methylprednisolone Sodium Succinate (Solu-Medrol) 62.5 mg IVPUSH Q8H [facility] Last Admin: 09/04/19 04:20 Dose: 62.5 mg Potassium Gluconate [Potassium] 1 Tab Pom 1 tab PO BID [facility] Last Admin: 09/01/19 10:26 Dose: Not Given Ondansetron HCl (Zofran) 4 mg IVPUSH ONETIME ONE Stop: 08/31/19 12:43 Last Admin: 08/31/19 12:54 Dose: 4 mg Ondansetron HCl (Zofran) 8 mg IVPUSH ONETIME ONE Stop: 08/31/19 15:34 Last Admin: 08/31/19 15:55 Dose: 8 mg Ondansetron HCl (Zofran Odt) 4 mg PO Q6H PRN PRN Reason: Nausea Last Admin: 08/31/19 18:21 Dose: 4 mg Ondansetron HCl (Zofran Odt) 4 mg PO Q6H PRN PRN Reason: Nausea able to take PO Potassium Chloride (Klor-Con M20) 40 meq PO ONETIME ONE Stop: 09/06/19 09:31 Last Admin: 09/06/19 10:17 Dose: 40 meq Potassium Chloride (Klor-Con M20) 40 meq PO ONETIME ONE Stop: 09/07/19 09:01 Last Admin: 09/07/19 09:35 Dose: 40 meq Potassium Chloride (Klor-Con M20) 40 meq PO ONETIME ONE Stop: 09/09/19 10:01 Last Admin: 09/09/19 10:31 Dose: 40 meq Potassium Chloride (Klor-Con M20) 40 meq PO ONETIME ONE Stop: 09/09/19 13:01 Last Admin: 09/09/19 12:06 Dose: 40 meq Sodium Chloride (Saline Flush) 10 ml IV ASDIRECTED [facility] Last Admin: 08/31/19 13:57 Dose: 10 ml Sodium Chloride (Saline Flush) 10 ml FLUSH ONETIME ONE Stop: 08/31/19 13:10 Last Admin: 08/31/19 17:59 Dose: Not Given Sodium Chloride (Saline Flush) 10 ml FLUSH ONETIME ONE Stop: 09/07/19 12:29 Last Admin: 09/07/19 13:04 Dose: 10 ml - Exam Quality Assessment: DVT Prophylaxis General: Alert, Oriented, Cooperative, Mild Distress Lungs: Clear to Auscultation, Normal Respiratory Effort Cardiovascular: Regular Rate, Regular Rhythm, No Murmurs GI/Abdominal Exam: Soft, Non-Tender, No Organomegaly, No Distention Extremities: Non-Tender, No Pedal Edema - Problem List Review Problem List Initiated/Reviewed/Updated: Yes - My Orders Last 24 Hours: My Active Orders 09/09/19 10:00 Magnesium Sulfate/Water [Magnesium Sulfate in Water Premix] 2 gm Premix Bag 1 bag IV Q6H 09/09/19 14:00 Furosemide [Lasix] 40 mg IVPUSH NOW ONE 09/09/19 17:00 Potassium Chloride [Klor-Con M20] 40 meq PO ONETIME ONE 09/10/19 05:00 BASIC METABOLIC PANEL,BMP [CHEM] Timed MAGNESIUM [CHEM] Timed - Plan Plan:: ASSESSMENT AND PLAN ARDS, suspected - complicated by acute respiratory failure with hypoxia. Improved over the last 24 hours with less shortness of breath and currently requiring less supplemental oxygen - Lasix 40 milligrams IV today -Doxycycline -Scheduled nebulizers -Supplement oxygen PANCREATITIS, ACUTE ON CHRONIC - Resolved PANCOLITIS -resolved Stage III chronic kidney disease - creatinine back to baseline. MAINTENANCE ISSUES -DVT prophylaxis; SCUDS -GI prophylaxis; continue outpatient PPI therapy -Colon catheter; not indicated -Nutrition; regular diet DISPOSITION - anticipate discharge to home after the hospital stay.
[2019-09-09] MEDS ORDERED: Furosemide 40 MG/4 ML VIAL IVPUSH ONE (14:00)
[2019-09-09] MEDS: Melatonin 3 MG Tab PO PRN (19:54)
[2019-09-09] MEDS: Albuterol/Ipratropium 3.0-0.5 MG/3 ML Neb Soln NEB PRN (23:41)
[2019-09-10] MEDS: HYDROmorphone 2 MG Tab PO PRN ×5 (01:27→22:05)
[2019-09-10] MEDS: Magnesium Sulfate/Water 2 GM in Premix Bag 1 BAG IV SCH (03:29)
[2019-09-10] MEDS: Sodium Chloride 0.9% 10 ML Syringe FLUSH PRN (05:40)
[2019-09-10] MEDS: Levalbuterol HCl 1.25 MG/3 ML Neb NEB SCH ×4 (07:14→21:17)
[2019-09-10] MEDS: Carvedilol 6.25 MG Tab PO SCH ×2 (07:35→17:54)
[2019-09-10] MEDS: Pantoprazole 40 MG Tab.CR PO SCH (07:35)
[2019-09-10] MEDS: Magnesium Oxide 400 MG Tab PO SCH ×2 (09:20→21:12)
[2019-09-10] MEDS: Doxycycline 100 MG Cap PO SCH ×2 (09:20→21:13)
[2019-09-10] MEDS: cycloSPORINE Ophth Drops U/D Box of 30 EYEBOTH SCH ×2 (09:20→21:12)
[2019-09-10] MEDS: Escitalopram 20 MG Tab PO SCH (09:20)
[2019-09-10] MEDS: amLODIPine 10 MG Tab PO SCH (09:22)
[2019-09-10] MEDS: Losartan 50 MG Tab PO SCH (09:22)
[2019-09-10] MEDS ORDERED: Furosemide 40 MG/4 ML VIAL IVPUSH ONE (12:20)
--- NOTE | 2019-09-10 12:25 | PCM.PN ---
- General Info Date of Service: 09/10/19 Subjective Update: Ms. Ma has been stable since yesterday, continues to require supplemental oxygen to maintain adequate oxygenation. She feels shortness of breath is subjectively improved and she has been up and walking in the hallways. Vital signs have remained stable and she has been afebrile. Functional Status: Reports: Tolerating Diet, Ambulating, Urinating - Review of Systems General: Reports: Weakness. Denies: Fever, Chills Pulmonary: Reports: Shortness of Breath, Cough. Denies: Pleuritic Chest Pain, Sputum, Hemoptysis, Wheezing Cardiovascular: Reports: Dyspnea on Exertion. Denies: Chest Pain, Palpitations , Orthopnea, PND, Edema, Lightheadedness Gastrointestinal: Reports: No Symptoms - Patient Data Vitals - Most Recent: Last Vital Signs Temp 97.0 F 09/10/19 11:28 Pulse 56 L 09/10/19 11:28 Resp 16 09/10/19 11:28 BP 86/41 L 09/10/19 11:28 Pulse Ox 92 L 09/10/19 11:28 Weight - Most Recent: 164 lb I&O - Last 24 Hours: Intake & Output 09/09/19 09/10/19 09/10/19 22:59 06:59 14:59 Intake Total 1315 1715 Output Total 500 Balance 815 1715 Lab Results Last 24 Hours: Laboratory Results - last 24 hr 09/10/19 Range/Units 05:48 Sodium 135 L (140-148) mmol/L Potassium 4.0 (3.6-5.2) mmol/L Chloride 100 (100-108) mmol/L Carbon Dioxide 30 (21-32) mmol/L Anion Gap 9.0 (5.0-14.0) mmol/L BUN 17 (7-18) mg/dL Creatinine 1.2 H (0.6-1.0) mg/dL Est Cr Clr Drug Dosing 45.98 mL/min Estimated GFR (MDRD) 46 L (>60) Glucose 121 H (74-106) mg/dL Calcium 8.7 (8.5-10.1) mg/dL Magnesium 3.5 H D (1.8-2.4) mg/dL Med Orders - Current: Current Medications Albuterol/Ipratropium (Duoneb 3.0-0.5 Mg/3 Ml) 3 ml NEB Q4H PRN PRN Reason: Shortness of Breath Last Admin: 09/09/19 23:41 Dose: 3 ml Amlodipine Besylate (Norvasc) 10 mg PO DAILY [facility] Last Admin: 09/10/19 09:22 Dose: 10 mg Carvedilol (Coreg) 6.25 mg PO BIDMEALS [facility] Last Admin: 09/10/19 07:35 Dose: 6.25 mg Cyclosporine (Restasis) 0 each EYEBOTH BID [facility] Last Admin: 09/10/19 09:20 Dose: 1 drop Doxycycline Hyclate (Vibramycin) 100 mg PO BID [facility] Last Admin: 09/10/19 09:20 Dose: 100 mg Escitalopram Oxalate (Lexapro) 20 mg PO DAILY [facility] Last Admin: 09/10/19 09:20 Dose: 20 mg Heparin Sodium (Porcine) (Heparin Lock Flush 100 Units/Ml) 500 units FLUSH ASDIRECTED PRN PRN Reason: IV Use Last Admin: 09/10/19 05:40 Dose: 500 units Hydromorphone HCl (Dilaudid) 4 mg PO Q3H PRN PRN Reason: Pain (moderate 4-6) Last Admin: 09/10/19 09:08 Dose: 4 mg Ibuprofen (Motrin) 600 mg PO Q6H PRN PRN Reason: Pain/Fever Last Admin: 09/05/19 17:51 Dose: 600 mg Levalbuterol HCl (Xopenex) 1.25 mg NEB Q4H PRN PRN Reason: shortness of breath/wheezing Last Admin: 09/07/19 01:34 Dose: 1.25 mg Levalbuterol HCl (Xopenex) 1.25 mg NEB QIDRT [facility] Last Admin: 09/10/19 10:42 Dose: 1.25 mg Loperamide HCl (Imodium) 2 mg PO Q4H PRN PRN Reason: Diarrhea Losartan Potassium (Cozaar) 100 mg PO DAILY [facility] Last Admin: 09/10/19 09:22 Dose: 100 mg Magnesium Oxide (Magnesium Oxide) 400 mg PO BID [facility] Last Admin: 09/10/19 09:20 Dose: 400 mg Melatonin (Melatonin) 9 mg PO BEDTIME PRN PRN Reason: Sleep Last Admin: 09/09/19 19:54 Dose: 9 mg Ondansetron HCl (Zofran Odt) 8 mg PO Q8H PRN PRN Reason: Nausea/Vomiting Last Admin: 09/09/19 09:03 Dose: 8 mg Pantoprazole Sodium (Protonix) 40 mg PO DAILY@0730 [facility] Last Admin: 09/10/19 07:35 Dose: 40 mg Sodium Chloride (Saline Flush) 10 ml FLUSH ASDIRECTED PRN PRN Reason: Keep Vein Open Last Admin: 09/10/19 05:40 Dose: 10 ml Discontinued Medications Cyclosporine (Restasis) 0 each EYEBOTH BID [facility] Last Admin: 09/01/19 17:02 Dose: Not Given Diphenhydramine HCl (Benadryl) 25 mg IVPUSH ONETIME ONE Stop: 08/31/19 13:10 Last Admin: 08/31/19 13:18 Dose: 25 mg Diphenhydramine HCl (Benadryl) 50 mg IVPUSH ONETIME ONE Stop: 09/07/19 13:01 Last Admin: 09/07/19 13:03 Dose: 50 mg Enoxaparin Sodium (Lovenox) 40 mg SUBCUT DAILY [facility] Last Admin: 08/31/19 21:54 Dose: Not Given Furosemide (Lasix) 20 mg IVPUSH NOW ONE Stop: 09/02/19 19:38 Last Admin: 09/02/19 19:51 Dose: 20 mg Furosemide (Lasix) 40 mg IVPUSH NOW ONE Stop: 09/04/19 10:45 Last Admin: 09/04/19 10:50 Dose: 40 mg Furosemide (Lasix) 20 mg IVPUSH NOW ONE Stop: 09/04/19 16:54 Last Admin: 09/04/19 18:07 Dose: 20 mg Furosemide (Lasix) 40 mg IVPUSH NOW ONE Stop: 09/05/19 10:21 Last Admin: 09/05/19 10:30 Dose: 40 mg Furosemide (Lasix) 40 mg IVPUSH NOW ONE Stop: 09/08/19 13:54 Last Admin: 09/08/19 14:35 Dose: 40 mg Furosemide (Lasix) 40 mg IVPUSH NOW ONE Stop: 09/09/19 14:01 Last Admin: 09/09/19 13:43 Dose: 40 mg Hydrocortisone Sodium Succinate (Solu-Cortef) 100 mg IVPUSH ONETIME ONE Stop: 08/31/19 13:10 Last Admin: 08/31/19 13:19 Dose: 100 mg Hydrocortisone Sodium Succinate (Solu-Cortef) 200 mg IVPUSH Q4H [facility] Stop: 09/07/19 15:01 Last Admin: 09/07/19 14:51 Dose: 200 mg Hydromorphone HCl (Dilaudid) 1 mg IVPUSH ONETIME ONE Stop: 08/31/19 12:39 Last Admin: 08/31/19 12:54 Dose: 1 mg Hydromorphone HCl (Dilaudid) 1 mg IVPUSH ONETIME ONE Stop: 08/31/19 13:29 Last Admin: 08/31/19 14:03 Dose: 1 mg Hydromorphone HCl (Dilaudid) 1 mg IVPUSH ONETIME ONE Stop: 08/31/19 15:33 Last Admin: 08/31/19 15:58 Dose: 1 mg Hydromorphone HCl (Dilaudid) 0.5 mg IVPUSH Q4H PRN PRN Reason: Pain Last Admin: 08/31/19 18:13 Dose: 0.5 mg Hydromorphone HCl (Dilaudid) 0.5 mg IVPUSH Q2H PRN PRN Reason: Pain (moderate 4-6) Hydromorphone HCl (Dilaudid) 1 mg IVPUSH Q2H PRN PRN Reason: Pain (severe 7-10) Last Admin: 09/02/19 22:51 Dose: 1 mg Hydromorphone HCl (Dilaudid) 0.5 mg IVPUSH Q2H PRN PRN Reason: Pain (moderate 4-6) Last Admin: 09/01/19 23:17 Dose: 0.5 mg Sodium Chloride (Normal Saline) 1,000 mls @ 150 mls/hr IV ASDIRECTED [facility] Last Admin: 08/31/19 12:54 Dose: 150 mls/hr Sodium Chloride (Normal Saline) 71 mls @ 0 mls/hr IV ASDIRECTED [facility] Last Admin: 08/31/19 13:57 Dose: 3 mls/hr Potassium Chloride 40 meq/ (Premix) 100 mls @ 25 mls/hr IV ONETIME ONE Stop: 08/31/19 21:38 Last Admin: 08/31/19 21:54 Dose: Not Given Sodium Chloride (Normal Saline) 1,000 mls @ 125 mls/hr IV ASDIRECTED [facility] Last Admin: 09/01/19 09:25 Dose: 125 mls/hr Potassium Chloride 20 meq/ (Premix) 100 mls @ 50 mls/hr IV ONETIME ONE Stop: 08/31/19 20:20 Last Admin: 08/31/19 18:39 Dose: 50 mls/hr Potassium Chloride 20 meq/ (Premix) 100 mls @ 50 mls/hr IV ONETIME ONE Stop: 08/31/19 22:29 Last Admin: 08/31/19 22:51 Dose: 50 mls/hr Magnesium Sulfate 2 gm/ Premix 50 mls @ 25 mls/hr IV Q6H [facility] Stop: 09/02/19 06:59 Last Admin: 09/02/19 05:44 Dose: 25 mls/hr Sodium Chloride (Normal Saline) 1,000 mls @ 50 mls/hr IV ASDIRECTED [facility] Last Admin: 09/01/19 17:10 Dose: 50 mls/hr Ciprofloxacin/Dextrose 400 mg/ (Premix) 200 mls @ 200 mls/hr IV Q24H [facility] Last Admin: 09/04/19 13:13 Dose: 200 mls/hr Ciprofloxacin/Dextrose 400 mg/ (Premix) 200 mls @ 200 mls/hr IV Q12H [facility] Stop: 09/05/19 06:00 Last Admin: 09/05/19 01:58 Dose: 200 mls/hr Potassium Chloride 20 meq/ (Premix) 100 mls @ 50 mls/hr IV ONETIME ONE Stop: 09/06/19 02:29 Last Admin: 09/06/19 00:53 Dose: 50 mls/hr Sodium Chloride (Normal Saline) 100 mls @ 3 mls/sec IV ASDIRECTED [facility] Stop: 09/07/19 12:31 Last Admin: 09/07/19 17:04 Dose: 3 mls/sec Magnesium Sulfate 2 gm/ Premix 50 mls @ 25 mls/hr IV Q6H [facility] Stop: 09/10/19 05:59 Last Admin: 09/10/19 03:29 Dose: 25 mls/hr Iopamidol (Isovue-300 (61%)) 100 ml IV . DIRECTED [facility] Last Admin: 08/31/19 13:57 Dose: 100 ml Iopamidol (Isovue-370 (76%)) 100 ml IV . DIRECTED [facility] Stop: 09/07/19 12:31 Last Admin: 09/07/19 17:04 Dose: 100 ml Lidocaine HCl (Xylocaine-Mpf 1%) 5 ml INJECT ONETIME ONE Stop: 08/31/19 18:16 Last Admin: 08/31/19 18:39 Dose: 5 ml Lorazepam (Ativan) 1 mg IVPUSH Q4H PRN PRN Reason: Nausea/Vomiting Last Admin: 09/05/19 23:53 Dose: 1 mg Lorazepam (Ativan) 1 mg PO BEDTIME PRN PRN Reason: Sleep Last Admin: 09/04/19 21:55 Dose: 1 mg Lorazepam (Ativan) 0.5 mg PO BEDTIME PRN PRN Reason: SLEEP Methylprednisolone Sodium Succinate (Solu-Medrol) 125 mg IVPUSH ONETIME ONE Stop: 09/02/19 12:01 Last Admin: 09/02/19 13:19 Dose: 125 mg Methylprednisolone Sodium Succinate (Solu-Medrol) 62.5 mg IVPUSH Q8H [facility] Last Admin: 09/04/19 04:20 Dose: 62.5 mg Potassium Gluconate [Potassium] 1 Tab Pom 1 tab PO BID [facility] Last Admin: 09/01/19 10:26 Dose: Not Given Ondansetron HCl (Zofran) 4 mg IVPUSH ONETIME ONE Stop: 08/31/19 12:43 Last Admin: 08/31/19 12:54 Dose: 4 mg Ondansetron HCl (Zofran) 8 mg IVPUSH ONETIME ONE Stop: 08/31/19 15:34 Last Admin: 08/31/19 15:55 Dose: 8 mg Ondansetron HCl (Zofran Odt) 4 mg PO Q6H PRN PRN Reason: Nausea Last Admin: 08/31/19 18:21 Dose: 4 mg Ondansetron HCl (Zofran Odt) 4 mg PO Q6H PRN PRN Reason: Nausea able to take PO Potassium Chloride (Klor-Con M20) 40 meq PO ONETIME ONE Stop: 09/06/19 09:31 Last Admin: 09/06/19 10:17 Dose: 40 meq Potassium Chloride (Klor-Con M20) 40 meq PO ONETIME ONE Stop: 09/07/19 09:01 Last Admin: 09/07/19 09:35 Dose: 40 meq Potassium Chloride (Klor-Con M20) 40 meq PO ONETIME ONE Stop: 09/09/19 10:01 Last Admin: 09/09/19 10:31 Dose: 40 meq Potassium Chloride (Klor-Con M20) 40 meq PO ONETIME ONE Stop: 09/09/19 13:01 Last Admin: 09/09/19 12:06 Dose: 40 meq Potassium Chloride (Klor-Con M20) 40 meq PO ONETIME ONE Stop: 09/09/19 17:01 Last Admin: 09/09/19 16:17 Dose: 40 meq Sodium Chloride (Saline Flush) 10 ml IV ASDIRECTED [facility] Last Admin: 08/31/19 13:57 Dose: 10 ml Sodium Chloride (Saline Flush) 10 ml FLUSH ONETIME ONE Stop: 08/31/19 13:10 Last Admin: 08/31/19 17:59 Dose: Not Given Sodium Chloride (Saline Flush) 10 ml FLUSH ONETIME ONE Stop: 09/07/19 12:29 Last Admin: 09/07/19 13:04 Dose: 10 ml - Exam Quality Assessment: Supplemental Oxygen, DVT Prophylaxis General: Alert, Oriented, Moderate Distress Lungs: Normal Respiratory Effort, Decreased Breath Sounds, Rales. No: Rhonchi, Wheezing Cardiovascular: Regular Rate, Regular Rhythm, No Murmurs GI/Abdominal Exam: Soft, Non-Tender, No Organomegaly, No Distention Extremities: Non-Tender, No Pedal Edema - Problem List Review Problem List Initiated/Reviewed/Updated: Yes - My Orders Last 24 Hours: My Active Orders 09/10/19 12:20 Furosemide [Lasix] 40 mg IVPUSH NOW ONE 09/11/19 05:00 BASIC METABOLIC PANEL,BMP [CHEM] Timed - Plan Plan:: ASSESSMENT AND PLAN ARDS, suspected - complicated by acute respiratory failure with hypoxia. Improved over the last few days with less shortness of breath and currently requiring less supplemental oxygen - Lasix 40 milligrams IV today -Doxycycline -Scheduled nebulizers -Supplement oxygen PANCREATITIS, ACUTE ON CHRONIC - Resolved PANCOLITIS -resolved Stage III chronic kidney disease - creatinine back to baseline. MAINTENANCE ISSUES -DVT prophylaxis; SCUDS -GI prophylaxis; continue outpatient PPI therapy -Colon catheter; not indicated -Nutrition; regular diet DISPOSITION - anticipate discharge to home after the hospital stay.
[2019-09-10] MEDS: Melatonin 3 MG Tab PO PRN (23:12)
[2019-09-11] MEDS: HYDROmorphone 2 MG Tab PO PRN (02:46)
[2019-09-11] MEDS: Levalbuterol HCl 1.25 MG/3 ML Neb NEB SCH ×4 (07:28→20:55)
[2019-09-11] MEDS: cycloSPORINE Ophth Drops U/D Box of 30 EYEBOTH SCH ×2 (09:06→20:50)
[2019-09-11] MEDS: Pantoprazole 40 MG Tab.CR PO SCH (09:07)
[2019-09-11] MEDS: Carvedilol 6.25 MG Tab PO SCH ×2 (09:07→16:58)
[2019-09-11] MEDS: Losartan 50 MG Tab PO SCH (09:08)
[2019-09-11] MEDS: amLODIPine 10 MG Tab PO SCH (09:08)
[2019-09-11] MEDS: Doxycycline 100 MG Cap PO SCH ×2 (09:08→20:51)
[2019-09-11] MEDS: Magnesium Oxide 400 MG Tab PO SCH ×2 (09:08→20:50)
[2019-09-11] MEDS: Escitalopram 20 MG Tab PO SCH (09:08)
--- NOTE | 2019-09-11 10:31 | PCM.PN ---
- General Info Date of Service: 09/11/19 Subjective Update: Ms. Ma is experienced further modest improvement since yesterday with less shortness of breath, cough is essentially resolved. Continues to require supplemental oxygen to maintain adequate saturations. Functional Status: Reports: Pain Controlled, Tolerating Diet, Ambulating, Urinating - Review of Systems General: Reports: Weakness. Denies: Fever, Chills Pulmonary: Reports: Shortness of Breath. Denies: Pleuritic Chest Pain, Cough, Sputum, Hemoptysis, Wheezing Cardiovascular: Reports: Dyspnea on Exertion. Denies: Chest Pain, Palpitations , Orthopnea, PND, Edema, Lightheadedness Gastrointestinal: Reports: No Symptoms - Patient Data Vitals - Most Recent: Last Vital Signs Temp 96.7 F 09/11/19 09:00 Pulse 59 L 09/11/19 09:07 Resp 18 09/11/19 09:00 BP 109/69 09/11/19 09:08 Pulse Ox 94 L 09/11/19 09:00 Weight - Most Recent: 153 lb 3.2 oz I&O - Last 24 Hours: Intake & Output 09/10/19 09/11/19 09/11/19 22:59 06:59 14:59 Intake Total 200 Output Total 750 400 300 Balance -750 -400 -100 Lab Results Last 24 Hours: Laboratory Results - last 24 hr 09/11/19 Range/Units 04:20 Sodium 132 L (140-148) mmol/L Potassium 3.9 (3.6-5.2) mmol/L Chloride 96 L (100-108) mmol/L Carbon Dioxide 29 (21-32) mmol/L Anion Gap 10.9 (5.0-14.0) mmol/L BUN 21 H (7-18) mg/dL Creatinine 1.3 H (0.6-1.0) mg/dL Est Cr Clr Drug Dosing 42.44 mL/min Estimated GFR (MDRD) 42 L (>60) Glucose 124 H (74-106) mg/dL Calcium 9.1 (8.5-10.1) mg/dL Med Orders - Current: Current Medications Albuterol/Ipratropium (Duoneb 3.0-0.5 Mg/3 Ml) 3 ml NEB Q4H PRN PRN Reason: Shortness of Breath Last Admin: 11/26/19 23:41 Dose: 3 ml Amlodipine Besylate (Norvasc) 10 mg PO DAILY [facility] Last Admin: 09/11/19 09:08 Dose: 10 mg Carvedilol (Coreg) 6.25 mg PO BIDMEALS [facility] Last Admin: 09/11/19 09:07 Dose: 6.25 mg Cyclosporine (Restasis) 0 each EYEBOTH BID [facility] Last Admin: 09/11/19 09:06 Dose: 1 drop Doxycycline Hyclate (Vibramycin) 100 mg PO BID [facility] Last Admin: 09/11/19 09:08 Dose: 100 mg Escitalopram Oxalate (Lexapro) 20 mg PO DAILY [facility] Last Admin: 09/11/19 09:08 Dose: 20 mg Furosemide (Lasix) 20 mg PO DAILY [facility] Heparin Sodium (Porcine) (Heparin Lock Flush 100 Units/Ml) 500 units FLUSH ASDIRECTED PRN PRN Reason: IV Use Last Admin: 09/11/19 04:30 Dose: 500 units Ibuprofen (Motrin) 600 mg PO Q6H PRN PRN Reason: Pain/Fever Last Admin: 09/05/19 17:51 Dose: 600 mg Levalbuterol HCl (Xopenex) 1.25 mg NEB Q4H PRN PRN Reason: shortness of breath/wheezing Last Admin: 09/07/19 01:34 Dose: 1.25 mg Levalbuterol HCl (Xopenex) 1.25 mg NEB QIDRT [facility] Last Admin: 09/11/19 07:28 Dose: 1.25 mg Loperamide HCl (Imodium) 2 mg PO Q4H PRN PRN Reason: Diarrhea Losartan Potassium (Cozaar) 100 mg PO DAILY [facility] Last Admin: 09/11/19 09:08 Dose: 100 mg Magnesium Oxide (Magnesium Oxide) 400 mg PO BID [facility] Last Admin: 09/11/19 09:08 Dose: 400 mg Melatonin (Melatonin) 9 mg PO BEDTIME PRN PRN Reason: Sleep Last Admin: 09/10/19 23:12 Dose: 9 mg Non-Formulary Medication (Lipase/Protease/Amylase [Lance Hilario 2,600 Unit Cap] ) 5,200 units PO TID [facility] Ondansetron HCl (Zofran Odt) 8 mg PO Q8H PRN PRN Reason: Nausea/Vomiting Last Admin: 09/09/19 09:03 Dose: 8 mg Pantoprazole Sodium (Protonix) 40 mg PO DAILY@0730 [facility] Last Admin: 09/11/19 09:07 Dose: 40 mg Sodium Chloride (Saline Flush) 10 ml FLUSH ASDIRECTED PRN PRN Reason: Keep Vein Open Last Admin: 09/10/19 05:40 Dose: 10 ml Discontinued Medications Cyclosporine (Restasis) 0 each EYEBOTH BID [facility] Last Admin: 09/01/19 17:02 Dose: Not Given Diphenhydramine HCl (Benadryl) 25 mg IVPUSH ONETIME ONE Stop: 08/31/19 13:10 Last Admin: 08/31/19 13:18 Dose: 25 mg Diphenhydramine HCl (Benadryl) 50 mg IVPUSH ONETIME ONE Stop: 09/07/19 13:01 Last Admin: 09/07/19 13:03 Dose: 50 mg Enoxaparin Sodium (Lovenox) 40 mg SUBCUT DAILY [facility] Last Admin: 08/31/19 21:54 Dose: Not Given Furosemide (Lasix) 20 mg IVPUSH NOW ONE Stop: 09/02/19 19:38 Last Admin: 09/02/19 19:51 Dose: 20 mg Furosemide (Lasix) 40 mg IVPUSH NOW ONE Stop: 09/04/19 10:45 Last Admin: 09/04/19 10:50 Dose: 40 mg Furosemide (Lasix) 20 mg IVPUSH NOW ONE Stop: 09/04/19 16:54 Last Admin: 09/04/19 18:07 Dose: 20 mg Furosemide (Lasix) 40 mg IVPUSH NOW ONE Stop: 09/05/19 10:21 Last Admin: 09/05/19 10:30 Dose: 40 mg Furosemide (Lasix) 40 mg IVPUSH NOW ONE Stop: 09/08/19 13:54 Last Admin: 09/08/19 14:35 Dose: 40 mg Furosemide (Lasix) 40 mg IVPUSH NOW ONE Stop: 09/09/19 14:01 Last Admin: 09/09/19 13:43 Dose: 40 mg Furosemide (Lasix) 40 mg IVPUSH NOW ONE Stop: 09/10/19 12:21 Last Admin: 09/10/19 14:38 Dose: Not Given Hydrocortisone Sodium Succinate (Solu-Cortef) 100 mg IVPUSH ONETIME ONE Stop: 08/31/19 13:10 Last Admin: 08/31/19 13:19 Dose: 100 mg Hydrocortisone Sodium Succinate (Solu-Cortef) 200 mg IVPUSH Q4H [facility] Stop: 09/07/19 15:01 Last Admin: 09/07/19 14:51 Dose: 200 mg Hydromorphone HCl (Dilaudid) 1 mg IVPUSH ONETIME ONE Stop: 08/31/19 12:39 Last Admin: 08/31/19 12:54 Dose: 1 mg Hydromorphone HCl (Dilaudid) 1 mg IVPUSH ONETIME ONE Stop: 08/31/19 13:29 Last Admin: 08/31/19 14:03 Dose: 1 mg Hydromorphone HCl (Dilaudid) 1 mg IVPUSH ONETIME ONE Stop: 08/31/19 15:33 Last Admin: 08/31/19 15:58 Dose: 1 mg Hydromorphone HCl (Dilaudid) 0.5 mg IVPUSH Q4H PRN PRN Reason: Pain Last Admin: 08/31/19 18:13 Dose: 0.5 mg Hydromorphone HCl (Dilaudid) 0.5 mg IVPUSH Q2H PRN PRN Reason: Pain (moderate 4-6) Hydromorphone HCl (Dilaudid) 1 mg IVPUSH Q2H PRN PRN Reason: Pain (severe 7-10) Last Admin: 09/02/19 22:51 Dose: 1 mg Hydromorphone HCl (Dilaudid) 0.5 mg IVPUSH Q2H PRN PRN Reason: Pain (moderate 4-6) Last Admin: 09/01/19 23:17 Dose: 0.5 mg Hydromorphone HCl (Dilaudid) 4 mg PO Q3H PRN PRN Reason: Pain (moderate 4-6) Last Admin: 09/11/19 02:46 Dose: 4 mg Sodium Chloride (Normal Saline) 1,000 mls @ 150 mls/hr IV ASDIRECTED [facility] Last Admin: 08/31/19 12:54 Dose: 150 mls/hr Sodium Chloride (Normal Saline) 71 mls @ 0 mls/hr IV ASDIRECTED [facility] Last Admin: 08/31/19 13:57 Dose: 3 mls/hr Potassium Chloride 40 meq/ (Premix) 100 mls @ 25 mls/hr IV ONETIME ONE Stop: 08/31/19 21:38 Last Admin: 08/31/19 21:54 Dose: Not Given Sodium Chloride (Normal Saline) 1,000 mls @ 125 mls/hr IV ASDIRECTED [facility] Last Admin: 09/01/19 09:25 Dose: 125 mls/hr Potassium Chloride 20 meq/ (Premix) 100 mls @ 50 mls/hr IV ONETIME ONE Stop: 08/31/19 20:20 Last Admin: 08/31/19 18:39 Dose: 50 mls/hr Potassium Chloride 20 meq/ (Premix) 100 mls @ 50 mls/hr IV ONETIME ONE Stop: 08/31/19 22:29 Last Admin: 08/31/19 22:51 Dose: 50 mls/hr Magnesium Sulfate 2 gm/ Premix 50 mls @ 25 mls/hr IV Q6H [facility] Stop: 09/02/19 06:59 Last Admin: 09/02/19 05:44 Dose: 25 mls/hr Sodium Chloride (Normal Saline) 1,000 mls @ 50 mls/hr IV ASDIRECTED [facility] Last Admin: 09/01/19 17:10 Dose: 50 mls/hr Ciprofloxacin/Dextrose 400 mg/ (Premix) 200 mls @ 200 mls/hr IV Q24H [facility] Last Admin: 09/04/19 13:13 Dose: 200 mls/hr Ciprofloxacin/Dextrose 400 mg/ (Premix) 200 mls @ 200 mls/hr IV Q12H [facility] Stop: 09/05/19 06:00 Last Admin: 09/05/19 01:58 Dose: 200 mls/hr Potassium Chloride 20 meq/ (Premix) 100 mls @ 50 mls/hr IV ONETIME ONE Stop: 09/06/19 02:29 Last Admin: 09/06/19 00:53 Dose: 50 mls/hr Sodium Chloride (Normal Saline) 100 mls @ 3 mls/sec IV ASDIRECTED [facility] Stop: 09/07/19 12:31 Last Admin: 09/07/19 17:04 Dose: 3 mls/sec Magnesium Sulfate 2 gm/ Premix 50 mls @ 25 mls/hr IV Q6H [facility] Stop: 09/10/19 05:59 Last Admin: 09/10/19 03:29 Dose: 25 mls/hr Iopamidol (Isovue-300 (61%)) 100 ml IV . DIRECTED [facility] Last Admin: 08/31/19 13:57 Dose: 100 ml Iopamidol (Isovue-370 (76%)) 100 ml IV . DIRECTED [facility] Stop: 09/07/19 12:31 Last Admin: 09/07/19 17:04 Dose: 100 ml Lidocaine HCl (Xylocaine-Mpf 1%) 5 ml INJECT ONETIME ONE Stop: 08/31/19 18:16 Last Admin: 08/31/19 18:39 Dose: 5 ml Lorazepam (Ativan) 1 mg IVPUSH Q4H PRN PRN Reason: Nausea/Vomiting Last Admin: 09/05/19 23:53 Dose: 1 mg Lorazepam (Ativan) 1 mg PO BEDTIME PRN PRN Reason: Sleep Last Admin: 09/04/19 21:55 Dose: 1 mg Lorazepam (Ativan) 0.5 mg PO BEDTIME PRN PRN Reason: SLEEP Methylprednisolone Sodium Succinate (Solu-Medrol) 125 mg IVPUSH ONETIME ONE Stop: 09/02/19 12:01 Last Admin: 09/02/19 13:19 Dose: 125 mg Methylprednisolone Sodium Succinate (Solu-Medrol) 62.5 mg IVPUSH Q8H [facility] Last Admin: 09/04/19 04:20 Dose: 62.5 mg Potassium Gluconate [Potassium] 1 Tab Pom 1 tab PO BID [facility] Last Admin: 09/01/19 10:26 Dose: Not Given Ondansetron HCl (Zofran) 4 mg IVPUSH ONETIME ONE Stop: 08/31/19 12:43 Last Admin: 08/31/19 12:54 Dose: 4 mg Ondansetron HCl (Zofran) 8 mg IVPUSH ONETIME ONE Stop: 08/31/19 15:34 Last Admin: 08/31/19 15:55 Dose: 8 mg Ondansetron HCl (Zofran Odt) 4 mg PO Q6H PRN PRN Reason: Nausea Last Admin: 08/31/19 18:21 Dose: 4 mg Ondansetron HCl (Zofran Odt) 4 mg PO Q6H PRN PRN Reason: Nausea able to take PO Potassium Chloride (Klor-Con M20) 40 meq PO ONETIME ONE Stop: 09/06/19 09:31 Last Admin: 09/06/19 10:17 Dose: 40 meq Potassium Chloride (Klor-Con M20) 40 meq PO ONETIME ONE Stop: 09/07/19 09:01 Last Admin: 09/07/19 09:35 Dose: 40 meq Potassium Chloride (Klor-Con M20) 40 meq PO ONETIME ONE Stop: 09/09/19 10:01 Last Admin: 09/09/19 10:31 Dose: 40 meq Potassium Chloride (Klor-Con M20) 40 meq PO ONETIME ONE Stop: 09/09/19 13:01 Last Admin: 09/09/19 12:06 Dose: 40 meq Potassium Chloride (Klor-Con M20) 40 meq PO ONETIME ONE Stop: 09/09/19 17:01 Last Admin: 09/09/19 16:17 Dose: 40 meq Sodium Chloride (Saline Flush) 10 ml IV ASDIRECTED [facility] Last Admin: 08/31/19 13:57 Dose: 10 ml Sodium Chloride (Saline Flush) 10 ml FLUSH ONETIME ONE Stop: 08/31/19 13:10 Last Admin: 08/31/19 17:59 Dose: Not Given Sodium Chloride (Saline Flush) 10 ml FLUSH ONETIME ONE Stop: 09/07/19 12:29 Last Admin: 09/07/19 13:04 Dose: 10 ml - Exam Quality Assessment: DVT Prophylaxis General: Alert, Oriented, Cooperative, No Acute Distress Lungs: Clear to Auscultation, Normal Respiratory Effort, Decreased Breath Sounds Cardiovascular: Regular Rate, Regular Rhythm, No Murmurs GI/Abdominal Exam: Soft, Non-Tender, No Organomegaly, No Distention Extremities: Non-Tender, No Pedal Edema - Problem List Review Problem List Initiated/Reviewed/Updated: Yes - My Orders Last 24 Hours: My Active Orders 09/11/19 10:29 Discontinue Telemetry Monitoring [Cardiac Monitoring Discontinue] [RC] Click to Edit 09/11/19 10:30 Furosemide [Lasix] 20 mg PO DAILY 09/11/19 14:00 Lipase/Protease/Amylase [[address] Dr 2,600 Unit Cap] 5,200 units PO TID - Plan Plan:: ASSESSMENT AND PLAN ARDS, suspected - complicated by acute respiratory failure with hypoxia. Improved over the last few days with less shortness of breath and currently requiring less supplemental oxygen - Lasix 20 mg by mouth daily -Doxycycline, for an additional 2 days -Scheduled nebulizers -Supplement oxygen PANCREATITIS, ACUTE ON CHRONIC - Resolved PANCOLITIS -resolved Stage III chronic kidney disease - creatinine back to baseline. MAINTENANCE ISSUES -DVT prophylaxis; SCUDS -GI prophylaxis; continue outpatient PPI therapy -Colon catheter; not indicated -Nutrition; regular diet DISPOSITION - anticipate discharge to home after the hospital stay.
[2019-09-11] MEDS: Ibuprofen 600 MG Tab PO PRN (11:31)
[2019-09-11] MEDS: Furosemide 20 MG Tab PO SCH (11:31)
[2019-09-11] MEDS ORDERED: LIPASE PO PRN (13:27)
[2019-09-11] MEDS ORDERED: AMYLASE PO PRN (13:27)
[2019-09-11] MEDS ORDERED: PROTEASE PO PRN (13:27)
[2019-09-11] MEDS: AMYLASE PO SCH (17:20)
[2019-09-11] MEDS: LIPASE PO SCH (17:20)
[2019-09-11] MEDS: PROTEASE PO SCH (17:20)
[2019-09-12] MEDS: Levalbuterol HCl 1.25 MG/3 ML Neb NEB SCH ×2 (07:15→11:34)
[2019-09-12 07:37] VITALS: BP 126/67; PULSE 67
[2019-09-12] MEDS: LIPASE PO SCH (08:53)
[2019-09-12] MEDS: AMYLASE PO SCH (08:53)
[2019-09-12] MEDS: PROTEASE PO SCH (08:53)
[2019-09-12] MEDS: cycloSPORINE Ophth Drops U/D Box of 30 EYEBOTH SCH (08:54)
[2019-09-12] MEDS: Pantoprazole 40 MG Tab.CR PO SCH (08:55)
[2019-09-12] MEDS: Carvedilol 6.25 MG Tab PO SCH (08:55)
[2019-09-12] MEDS: Losartan 50 MG Tab PO SCH (08:55)
[2019-09-12] MEDS: Magnesium Oxide 400 MG Tab PO SCH (08:56)
[2019-09-12] MEDS: Doxycycline 100 MG Cap PO SCH (08:56)
[2019-09-12] MEDS: amLODIPine 10 MG Tab PO SCH (08:56)
[2019-09-12] MEDS: Furosemide 20 MG Tab PO SCH (08:56)
[2019-09-12] MEDS: Escitalopram 20 MG Tab PO SCH (08:56)
--- NOTE | 2019-09-12 12:13 | PCM.DCSUM1 ---
Discharge Summary - Hospital Course Brief History: Ms. Ma is a 59-year-old woman who was admitted through the emergency department for acute on chronic pancreatitis with symptoms of abdominal pain and nausea. - Discharge Data Discharge Date: 09/12/19 Discharge Disposition: Home, Self-Care 01 Condition: Fair - Referral to Home Health Primary Care Physician: Jed Quinones MD - Discharge Diagnosis/Problem(s) (1) ARDS (adult respiratory distress syndrome) SNOMED Code(s): 64002286, 76699482 ICD Code: J80 - ACUTE RESPIRATORY DISTRESS SYNDROME Status: Acute Current Visit: Yes (2) Acute on chronic pancreatitis SNOMED Code(s): 207877798 ICD Code: K85.90 - ACUTE PANCREATITIS WITHOUT NECROSIS OR INFECTION, UNSP; K86.1 - OTHER CHRONIC PANCREATITIS Status: Acute Current Visit: Yes (3) Hypoxia SNOMED Code(s): 960451621 ICD Code: R09.02 - HYPOXEMIA Status: Acute Current Visit: Yes (4) COPD (chronic obstructive pulmonary disease) SNOMED Code(s): 21697727 ICD Code: J44.9 - CHRONIC OBSTRUCTIVE PULMONARY DISEASE, UNSPECIFIED Status : Acute Current Visit: Yes (5) Portal vein thrombosis SNOMED Code(s): 97509408 ICD Code: I81 - PORTAL VEIN THROMBOSIS Status: Acute Current Visit: No (6) Pancolitis SNOMED Code(s): 262537611 ICD Code: K51.00 - ULCERATIVE (CHRONIC) PANCOLITIS WITHOUT COMPLICATIONS Status: Acute Current Visit: No - Patient Summary/Data Hospital Course: Ms. Ma is a 59-year-old woman who was admitted through the emergency department with nausea, abdominal pain, and diarrhea, secondary to acute on chronic pancreatitis and colitis. She has had a long-standing history of recurrent pancreatitis as well as underlying chronic pancreatitis. She has been followed in the Department of gastroenterology at the [facility]. She has had some ongoing difficulty with loose stools and poor appetite. Over the past 3 months appetite is improved and she has gained approximately 16 pounds. She was feeling well until this morning when she developed acute upper abdominal pain radiating to the back. Pain is described as an intense ache as well as sharp pain. Associated with nausea vomiting, she denies precipitating or relieving factors. Also today is developed more frequent watery diarrhea. No pain associated with the diarrhea and she denies fever or chills. Lipase level was only slightly elevated today when seen in the emergency department. CT scan of the abdomen and pelvis shows inflammation around the pancreas, unchanged from previous CT scan. She was also noted to have splenic vein and portal vein thrombosis, patient reports this is not new and was noted at the [place] in July. CT scan documents pancolitis. On admission she was kept nothing by mouth, given pain medication and medication for nausea as needed. IV fluids were given for hydration. Over the next few days of hospitalization she improved with resolution of her abdominal pain and nausea, normalization of lipase level. Diarrhea on admission was felt secondary to her pancolitis and this slowly resolved over the first few days of hospitalization. She was close to discharge when she began to develop symptoms of shortness of breath. X-ray showed bilateral infiltrates consistent with ARDS. She was given trial of diuretic therapy with no significant improvement in symptoms. She was covered for possible pneumonia with doxycycline. CT scan of the chest was obtained showing no evidence of pulmonary embolism but did document bilateral infiltrates again consistent with ARDS. Over the next several days of hospitalization shortness of breath slowly improved but she continued to experience hypoxia and require use of supplemental oxygen. On the day of discharge she had an oxygen saturation of 84% on room air and will be prescribed home oxygen at 2 L/m via nasal cannula. She did experience good improvement with use of nebulizer therapy and she will also be discharged home with duo nebs 4 times daily as needed. Expected that shortness of breath and hypoxia will continue to slowly improve over the next few weeks. She likely does have a component of underlying COPD and I have recommended that she undergo pulmonary function study testing after she has recovered from the ARDS. Activity will be as tolerated and she will resume her usual diet. Follow-up appointment will be scheduled with her primary care provider within one week. - Patient Instructions Diet: Low Sodium Activity: As Tolerated Other/Special Instructions: Please schedule follow-up appointment with her primary care provider within one week. Please arrange for home oxygen 2 L/m via nasal cannula. - Discharge Plan *PRESCRIPTION DRUG MONITORING PROGRAM REVIEWED*: Not Applicable *COPY OF PRESCRIPTION DRUG MONITORING REPORT IN PATIENT DARNELL: Not Applicable Home Medications: Home Meds Losartan [Cozaar] 100 mg PO DAILY 06/20/18 [History] Ondansetron [Zofran ODT] 4 mg PO Q6H PRN #7 tab.dis 10/10/18 [Rx] Escitalopram [Lexapro] 20 mg PO DAILY 02/03/19 [History] cycloSPORINE [Restasis] 1 drop EYEBOTH BID 02/03/19 [History] Lipase/Protease/Amylase [Pancreaze Dr 2,600 Unit Cap] 24,000 units PO TID [History] Omeprazole 40 mg PO DAILY 02/04/19 [History] amLODIPine [Norvasc] 10 mg PO DAILY 02/04/19 [History] Magnesium Oxide 400 mg PO BID #60 tablet 02/11/19 [Rx] Cholecalciferol (Vitamin D3) [Vitamin D3] 2,000 unit PO BID 05/14/19 [History] Hyoscyamine [Levsin] 0.25 mg PO Q4HR PRN 05/14/19 [History] carvediloL [Carvedilol] 6.25 mg PO BID 05/14/19 [History] Potassium Gluconate [Potassium] 1 tab PO BID 08/31/19 [History] Oxygen Therapy Mode: Nasal Cannula Oxygen Flow Rate (L/min): 2 Maintain SpO2% greater than: 90 Referrals: Obi Alexandre MD [Family Provider] - 09/12/19 1:30 pm (Please arrive 15 minutes early to register for your appointment.) - Discharge Summary/Plan Comment DC Time >30 min.: No - Patient Data Vitals - Most Recent: Last Vital Signs Temp 99 F 09/12/19 07:34 Pulse 67 09/12/19 08:55 Resp 16 09/12/19 07:34 BP 126/67 09/12/19 08:56 Pulse Ox 94 L 09/12/19 07:34 Weight - Most Recent: 153 lb 3.2 oz I&O - Last 24 hours: Intake & Output 09/11/19 09/12/19 09/12/19 22:59 06:59 14:59 Intake Total 700 Output Total 1000 300 Balance -300 -300 Med Orders - Current: Current Medications Albuterol/Ipratropium (Duoneb 3.0-0.5 Mg/3 Ml) 3 ml NEB Q4H PRN PRN Reason: Shortness of Breath Last Admin: 09/09/19 23:41 Dose: 3 ml Amlodipine Besylate (Norvasc) 10 mg PO DAILY [facility] Last Admin: 09/12/19 08:56 Dose: 10 mg Carvedilol (Coreg) 6.25 mg PO BIDMEALS [facility] Last Admin: 09/12/19 08:55 Dose: 6.25 mg Cyclosporine (Restasis) 0 each EYEBOTH BID [facility] Last Admin: 09/12/19 08:54 Dose: 1 drop Escitalopram Oxalate (Lexapro) 20 mg PO DAILY [facility] Last Admin: 09/12/19 08:56 Dose: 20 mg Furosemide (Lasix) 20 mg PO DAILY [facility] Last Admin: 09/12/19 08:56 Dose: 20 mg Heparin Sodium (Porcine) (Heparin Lock Flush 100 Units/Ml) 500 units FLUSH ASDIRECTED PRN PRN Reason: IV Use Last Admin: 09/11/19 04:30 Dose: 500 units Ibuprofen (Motrin) 600 mg PO Q6H PRN PRN Reason: Pain/Fever Last Admin: 09/11/19 11:31 Dose: 600 mg Levalbuterol HCl (Xopenex) 1.25 mg NEB Q4H PRN PRN Reason: shortness of breath/wheezing Last Admin: 09/07/19 01:34 Dose: 1.25 mg Levalbuterol HCl (Xopenex) 1.25 mg NEB QIDRT [facility] Last Admin: 09/12/19 11:34 Dose: Not Given Loperamide HCl (Imodium) 2 mg PO Q4H PRN PRN Reason: Diarrhea Losartan Potassium (Cozaar) 100 mg PO DAILY [facility] Last Admin: 09/12/19 08:55 Dose: 100 mg Magnesium Oxide (Magnesium Oxide) 400 mg PO BID [facility] Last Admin: 09/12/19 08:56 Dose: 400 mg Melatonin (Melatonin) 9 mg PO BEDTIME PRN PRN Reason: Sleep Last Admin: 09/10/19 23:12 Dose: 9 mg Lipase/Protease/Amylase(Pancreaze)24 ,000 Unit CapPom 0 units PO TIDMEALS [facility] Last Admin: 09/12/19 08:53 Dose: 3 units Lipase/Protease/Amylase(Pancreaze)24 ,000 Unit CapPom 0 units PO ASDIRECTED PRN PRN Reason: ENZYME Ondansetron HCl (Zofran Odt) 8 mg PO Q8H PRN PRN Reason: Nausea/Vomiting Last Admin: 09/09/19 09:03 Dose: 8 mg Pantoprazole Sodium (Protonix) 40 mg PO DAILY@0730 [facility] Last Admin: 09/12/19 08:55 Dose: 40 mg Sodium Chloride (Saline Flush) 10 ml FLUSH ASDIRECTED PRN PRN Reason: Keep Vein Open Last Admin: 09/10/19 05:40 Dose: 10 ml Discontinued Medications Cyclosporine (Restasis) 0 each EYEBOTH BID [facility] Last Admin: 09/01/19 17:02 Dose: Not Given Diphenhydramine HCl (Benadryl) 25 mg IVPUSH ONETIME ONE Stop: 08/31/19 13:10 Last Admin: 08/31/19 13:18 Dose: 25 mg Diphenhydramine HCl (Benadryl) 50 mg IVPUSH ONETIME ONE Stop: 09/07/19 13:01 Last Admin: 09/07/19 13:03 Dose: 50 mg Doxycycline Hyclate (Vibramycin) 100 mg PO BID [facility] Last Admin: 09/12/19 08:56 Dose: 100 mg Enoxaparin Sodium (Lovenox) 40 mg SUBCUT DAILY [facility] Last Admin: 08/31/19 21:54 Dose: Not Given Furosemide (Lasix) 20 mg IVPUSH NOW ONE Stop: 09/02/19 19:38 Last Admin: 09/02/19 19:51 Dose: 20 mg Furosemide (Lasix) 40 mg IVPUSH NOW ONE Stop: 09/04/19 10:45 Last Admin: 09/04/19 10:50 Dose: 40 mg Furosemide (Lasix) 20 mg IVPUSH NOW ONE Stop: 09/04/19 16:54 Last Admin: 09/04/19 18:07 Dose: 20 mg Furosemide (Lasix) 40 mg IVPUSH NOW ONE Stop: 09/05/19 10:21 Last Admin: 09/05/19 10:30 Dose: 40 mg Furosemide (Lasix) 40 mg IVPUSH NOW ONE Stop: 09/08/19 13:54 Last Admin: 09/08/19 14:35 Dose: 40 mg Furosemide (Lasix) 40 mg IVPUSH NOW ONE Stop: 09/09/19 14:01 Last Admin: 09/09/19 13:43 Dose: 40 mg Furosemide (Lasix) 40 mg IVPUSH NOW ONE Stop: 09/10/19 12:21 Last Admin: 09/10/19 14:38 Dose: Not Given Hydrocortisone Sodium Succinate (Solu-Cortef) 100 mg IVPUSH ONETIME ONE Stop: 08/31/19 13:10 Last Admin: 08/31/19 13:19 Dose: 100 mg Hydrocortisone Sodium Succinate (Solu-Cortef) 200 mg IVPUSH Q4H [facility] Stop: 09/07/19 15:01 Last Admin: 09/07/19 14:51 Dose: 200 mg Hydromorphone HCl (Dilaudid) 1 mg IVPUSH ONETIME ONE Stop: 08/31/19 12:39 Last Admin: 08/31/19 12:54 Dose: 1 mg Hydromorphone HCl (Dilaudid) 1 mg IVPUSH ONETIME ONE Stop: 08/31/19 13:29 Last Admin: 08/31/19 14:03 Dose: 1 mg Hydromorphone HCl (Dilaudid) 1 mg IVPUSH ONETIME ONE Stop: 08/31/19 15:33 Last Admin: 08/31/19 15:58 Dose: 1 mg Hydromorphone HCl (Dilaudid) 0.5 mg IVPUSH Q4H PRN PRN Reason: Pain Last Admin: 08/31/19 18:13 Dose: 0.5 mg Hydromorphone HCl (Dilaudid) 0.5 mg IVPUSH Q2H PRN PRN Reason: Pain (moderate 4-6) Hydromorphone HCl (Dilaudid) 1 mg IVPUSH Q2H PRN PRN Reason: Pain (severe 7-10) Last Admin: 09/02/19 22:51 Dose: 1 mg Hydromorphone HCl (Dilaudid) 0.5 mg IVPUSH Q2H PRN PRN Reason: Pain (moderate 4-6) Last Admin: 09/01/19 23:17 Dose: 0.5 mg Hydromorphone HCl (Dilaudid) 4 mg PO Q3H PRN PRN Reason: Pain (moderate 4-6) Last Admin: 09/11/19 02:46 Dose: 4 mg Sodium Chloride (Normal Saline) 1,000 mls @ 150 mls/hr IV ASDIRECTED [facility] Last Admin: 08/31/19 12:54 Dose: 150 mls/hr Sodium Chloride (Normal Saline) 71 mls @ 0 mls/hr IV ASDIRECTED [facility] Last Admin: 08/31/19 13:57 Dose: 3 mls/hr Potassium Chloride 40 meq/ (Premix) 100 mls @ 25 mls/hr IV ONETIME ONE Stop: 08/31/19 21:38 Last Admin: 08/31/19 21:54 Dose: Not Given Sodium Chloride (Normal Saline) 1,000 mls @ 125 mls/hr IV ASDIRECTED [facility] Last Admin: 09/01/19 09:25 Dose: 125 mls/hr Potassium Chloride 20 meq/ (Premix) 100 mls @ 50 mls/hr IV ONETIME ONE Stop: 08/31/19 20:20 Last Admin: 08/31/19 18:39 Dose: 50 mls/hr Potassium Chloride 20 meq/ (Premix) 100 mls @ 50 mls/hr IV ONETIME ONE Stop: 08/31/19 22:29 Last Admin: 08/31/19 22:51 Dose: 50 mls/hr Magnesium Sulfate 2 gm/ Premix 50 mls @ 25 mls/hr IV Q6H [facility] Stop: 09/02/19 06:59 Last Admin: 09/02/19 05:44 Dose: 25 mls/hr Sodium Chloride (Normal Saline) 1,000 mls @ 50 mls/hr IV ASDIRECTED [facility] Last Admin: 09/01/19 17:10 Dose: 50 mls/hr Ciprofloxacin/Dextrose 400 mg/ (Premix) 200 mls @ 200 mls/hr IV Q24H [facility] Last Admin: 09/04/19 13:13 Dose: 200 mls/hr Ciprofloxacin/Dextrose 400 mg/ (Premix) 200 mls @ 200 mls/hr IV Q12H [facility] Stop: 09/05/19 06:00 Last Admin: 09/05/19 01:58 Dose: 200 mls/hr Potassium Chloride 20 meq/ (Premix) 100 mls @ 50 mls/hr IV ONETIME ONE Stop: 09/06/19 02:29 Last Admin: 09/06/19 00:53 Dose: 50 mls/hr Sodium Chloride (Normal Saline) 100 mls @ 3 mls/sec IV ASDIRECTED [facility] Stop: 09/07/19 12:31 Last Admin: 09/07/19 17:04 Dose: 3 mls/sec Magnesium Sulfate 2 gm/ Premix 50 mls @ 25 mls/hr IV Q6H [facility] Stop: 09/10/19 05:59 Last Admin: 09/10/19 03:29 Dose: 25 mls/hr Iopamidol (Isovue-300 (61%)) 100 ml IV . DIRECTED [facility] Last Admin: 08/31/19 13:57 Dose: 100 ml Iopamidol (Isovue-370 (76%)) 100 ml IV . DIRECTED [facility] Stop: 09/07/19 12:31 Last Admin: 09/07/19 17:04 Dose: 100 ml Lidocaine HCl (Xylocaine-Mpf 1%) 5 ml INJECT ONETIME ONE Stop: 08/31/19 18:16 Last Admin: 08/31/19 18:39 Dose: 5 ml Lorazepam (Ativan) 1 mg IVPUSH Q4H PRN PRN Reason: Nausea/Vomiting Last Admin: 09/05/19 23:53 Dose: 1 mg Lorazepam (Ativan) 1 mg PO BEDTIME PRN PRN Reason: Sleep Last Admin: 09/04/19 21:55 Dose: 1 mg Lorazepam (Ativan) 0.5 mg PO BEDTIME PRN PRN Reason: SLEEP Methylprednisolone Sodium Succinate (Solu-Medrol) 125 mg IVPUSH ONETIME ONE Stop: 09/02/19 12:01 Last Admin: 09/02/19 13:19 Dose: 125 mg Methylprednisolone Sodium Succinate (Solu-Medrol) 62.5 mg IVPUSH Q8H [facility] Last Admin: 09/04/19 04:20 Dose: 62.5 mg Potassium Gluconate [Potassium] 1 Tab Pom 1 tab PO BID [facility] Last Admin: 09/01/19 10:26 Dose: Not Given Ondansetron HCl (Zofran) 4 mg IVPUSH ONETIME ONE Stop: 08/31/19 12:43 Last Admin: 08/31/19 12:54 Dose: 4 mg Ondansetron HCl (Zofran) 8 mg IVPUSH ONETIME ONE Stop: 08/31/19 15:34 Last Admin: 08/31/19 15:55 Dose: 8 mg Ondansetron HCl (Zofran Odt) 4 mg PO Q6H PRN PRN Reason: Nausea Last Admin: 08/31/19 18:21 Dose: 4 mg Ondansetron HCl (Zofran Odt) 4 mg PO Q6H PRN PRN Reason: Nausea able to take PO Potassium Chloride (Klor-Con M20) 40 meq PO ONETIME ONE Stop: 09/06/19 09:31 Last Admin: 09/06/19 10:17 Dose: 40 meq Potassium Chloride (Klor-Con M20) 40 meq PO ONETIME ONE Stop: 09/07/19 09:01 Last Admin: 09/07/19 09:35 Dose: 40 meq Potassium Chloride (Klor-Con M20) 40 meq PO ONETIME ONE Stop: 09/09/19 10:01 Last Admin: 09/09/19 10:31 Dose: 40 meq Potassium Chloride (Klor-Con M20) 40 meq PO ONETIME ONE Stop: 09/09/19 13:01 Last Admin: 09/09/19 12:06 Dose: 40 meq Potassium Chloride (Klor-Con M20) 40 meq PO ONETIME ONE Stop: 09/09/19 17:01 Last Admin: 09/09/19 16:17 Dose: 40 meq Sodium Chloride (Saline Flush) 10 ml IV ASDIRECTED [facility] Last Admin: 08/31/19 13:57 Dose: 10 ml Sodium Chloride (Saline Flush) 10 ml FLUSH ONETIME ONE Stop: 08/31/19 13:10 Last Admin: 08/31/19 17:59 Dose: Not Given Sodium Chloride (Saline Flush) 10 ml FLUSH ONETIME ONE Stop: 09/07/19 12:29 Last Admin: 09/07/19 13:04 Dose: 10 ml - Exam General: Reports: Alert, Oriented, Cooperative, No Acute Distress Lungs: Reports: Normal Respiratory Effort, Decreased Breath Sounds Cardiovascular: Reports: Regular Rate, Regular Rhythm, No Murmurs GI/Abdominal Exam: Soft, Non-Tender, No Organomegaly, No Distention Extremities: Non-Tender, No Pedal Edema
== END 2019-09-12 12:50 | disposition home or self-care (01) | DRG 438 ==
LOC: JP.ED 12:01 → JP.MS 17:16
PROVIDERS: ADMIT Hospitalist; ATTEND Internal Medicine
DX: K85.80 Other acute pancreatitis without necrosis or infection (principal); I82.439 Acute embolism and thrombosis of unspecified popliteal vein; K85.90 Acute pancreatitis without necrosis or infection, unspecified; I81 Portal vein thrombosis; I10 Essential (primary) hypertension; J96.01 Acute respiratory failure with hypoxia; J18.9 Pneumonia, unspecified organism; K51.00 Ulcerative (chronic) pancolitis without complications; K86.1 Other chronic pancreatitis; J44.9 Chronic obstructive pulmonary disease, unspecified; H54.7 Unspecified visual loss; F17.200 Nicotine dependence, unspecified, uncomplicated; E87.6 Hypokalemia; E83.42 Hypomagnesemia; Z88.8 Allergy status to other drugs, medicaments and biological substances; F41.9 Anxiety disorder, unspecified; I12.9 Hypertensive chronic kidney disease with stage 1 through stage 4 chronic kidney disease, or unspecified chronic kidney disease; E11.22 Type 2 diabetes mellitus with diabetic chronic kidney disease; N18.3 Chronic kidney disease, stage 3 (moderate); F32.9 Major depressive disorder, single episode, unspecified; F17.210 Nicotine dependence, cigarettes, uncomplicated; D73.5 Infarction of spleen; Z96.649 Presence of unspecified artificial hip joint; Z96.659 Presence of unspecified artificial knee joint; Z79.899 Other long term (current) drug therapy; Z91.041 Radiographic dye allergy status; Z88.5 Allergy status to narcotic agent; Z88.2 Allergy status to sulfonamides; Z88.1 Allergy status to other antibiotic agents; Z88.6 Allergy status to analgesic agent; Z99.81 Dependence on supplemental oxygen; Z90.89 Acquired absence of other organs; Z90.49 Acquired absence of other specified parts of digestive tract
CPT/HCPCS: 36415; 74177; 80053; 83690; 84484; 85025; 93005; 93010; 96361; 96374; 96375; 96376; 99285 ×2; J1170 ×3; J1200; J1720; J2405 ×2; J7030 ×2; Q9967; 36600; 51798; 71045; 71046; 71250; 71275; 80048; 82803; 83735; 84145; 85027; 85379; 85651; 86140; 94640; 94762; A9270-GY; C1751; J0744; J1642; J1940; J2001; J2060; J2930; J3475; J3480; J7612-GY; J7620-GY

== ENCOUNTER 2019-11-15 08:55 | Inpatient (IN) | payer MEDICARE, OTHER ==
[2019-11-15] MEDS ORDERED: Lactated Ringers 1,000 ML IV ONE (10:37)
[2019-11-15] MEDS ORDERED: HYDROmorphone 0.5 MG/0.5 ML Syringe IVPUSH ONE (10:37)
--- NOTE | 2019-11-15 10:42 | EDM.PDOC ---
ED HPI GENERAL MEDICAL PROBLEM - General Chief Complaint: Abdominal Pain Stated Complaint: CHRRONIC PANCREATITIS- PAIN Time Seen by Provider: 11/15/19 10:25 Source of Information: Reports: Patient History Limitations: Reports: No Limitations - History of Present Illness INITIAL COMMENTS - FREE TEXT/NARRATIVE: 59-year-old female with recurrent chronic pancreatitis is concerned she has another episode. Symptoms started 3 days ago when she struck her abdomen against the tailgate of her truck, and since then she has had increasing pain typical of her pancreatitis with nausea and vomiting. Chills but no fever. No diarrhea. She has not been drinking alcohol and quit smoking last August. Her last episode of pancreatitis evolved into ARDS. Onset: Gradual Duration: Day(s): (3 days of symptoms, worsening) Location: Reports: Abdomen (Especially upper abdomen) Associated Symptoms: Reports: Loss of Appetite, Malaise, Nausea/Vomiting. Denies: Chest Pain, Cough Upper Abdominal Pain Score (Numeric/FACES): 10 - Related Data Allergies Allergy/AdvReac Type Severity Reaction Status Date / Time acetaminophen Allergy Severe Hives Verified 08/31/19 12:13 [From Darvocet-N 100] codeine Allergy Severe Hives Verified 08/31/19 12:13 Iodinated Contrast Media Allergy Severe Cannot Verified 08/31/19 12:13 [Iodinated Contrast Media - Remember IV Dye] iodine Allergy Severe Hives Verified 08/31/19 12:13 propoxyphene napsylate Allergy Severe Hives Verified 08/31/19 12:13 [From Darvocet-N 100] Sulfa (Sulfonamide Allergy Severe Hives Verified 08/31/19 12:13 Antibiotics) sulfamethoxazole Allergy Severe Rash Verified 08/31/19 12:13 [From Bactrim] tramadol Allergy Severe Anxiety Verified 08/31/19 12:13 trimethoprim [From Bactrim] Allergy Severe Rash Verified 08/31/19 12:13 barley Allergy Rash Verified 08/31/19 12:13 Home Meds: Home Meds Losartan [Cozaar] 100 mg PO DAILY 06/20/18 [History] Ondansetron [Zofran ODT] 4 mg PO Q6H PRN #7 tab.dis 10/10/18 [Rx] cycloSPORINE [Restasis] 1 drop EYEBOTH BID 02/03/19 [History] Lipase/Protease/Amylase [Pancreaze Dr 2,600 Unit Cap] 24,000 units PO TID [History] Omeprazole 40 mg PO DAILY 02/04/19 [History] amLODIPine [Norvasc] 10 mg PO DAILY 02/04/19 [History] Magnesium Oxide 400 mg PO BID #60 tablet 02/11/19 [Rx] Cholecalciferol (Vitamin D3) [Vitamin D3] 2,000 unit PO BID 05/14/19 [History] Hyoscyamine [Levsin] 0.25 mg PO Q4HR PRN 05/14/19 [History] carvediloL [Carvedilol] 6.25 mg PO BID 05/14/19 [History] Potassium Gluconate [Potassium] 1 tab PO BID 08/31/19 [History] Acetaminophen/HYDROcodone [Boelus 325-5 MG] 1 - 2 tab PO Q6H PRN 11/15/19 [ History] Mirtazapine 1 tab PO BEDTIME 11/15/19 [History] Past Medical History HEENT History: Reports: Impaired Vision Cardiovascular History: Reports: Hypertension Respiratory History: Reports: None, Other (See Below) Other Respiratory History: ARDS in Aug 2019 Gastrointestinal History: Reports: Cholelithiasis, 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 Genitourinary History: Reports: None [employer] History: Reports: Musculoskeletal History: Reports: None Neurological History: Reports: Concussion Psychiatric History: Reports: Addiction, Anxiety, Depression Other Psychiatric History: [place] Endocrine/Metabolic History: Reports: Diabetes, Type II Hematologic History: Reports: Blood Transfusion(s) Immunologic History: Reports: None Oncologic (Cancer) History: Reports: None - Infectious Disease History Infectious Disease History: Reports: Chicken Pox - Past Surgical History Head Surgeries/Procedures: Reports: None HEENT Surgical History: Reports: Tonsillectomy Cardiovascular Surgical History: Reports: None GI Surgical History: Reports: Appendectomy, Cholecystectomy, EGD, ERCP Female Surgical History: Reports: Section Endocrine Surgical History: Reports: None Musculoskeletal Surgical History: Reports: Arthroscopic Knee, Hip Replacement, Knee Replacement, Shoulder Surgery, Other (See Below) Other Musculoskeletal Surgeries/Procedures:: "rotator cuff surgery" Dermatological Surgical History: Reports: None Social & Family History - Family History Family Medical History: Noncontributory HEENT: Reports: None Cardiac: Reports: None Respiratory: Reports: None GI: Reports: 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 : Reports: Pyelonephritis, UTI, Recurrent OBGYN: Reports: None Musculoskeletal: Reports: Arthritis Neurological: Reports: None Psychiatric: Reports: None Endocrine/Metabolic: Reports: Diabetes, type II Hematologic: Reports: None Immunologic: Reports: None Dermatologic: Reports: None Oncologic: Reports: None - Tobacco Use Smoking Status *Q: Never Smoker Second Hand Smoke Exposure: No - Caffeine Use Caffeine Use: Reports: None - Recreational Drug Use Recreational Drug Use: No ED ROS GENERAL - Review of Systems Review Of Systems: See Below Constitutional: Reports: Chills, Malaise HEENT: Denies: Vision Change Respiratory: Denies: Shortness of Breath Cardiovascular: Denies: Chest Pain GI/Abdominal: Reports: Abdominal Pain, Nausea, Vomiting : Reports: No Symptoms Neurological: Denies: Headache ED EXAM, GI/ABD - Physical Exam Exam: See Below Exam Limited By: No Limitations General Appearance: Alert, Mild Distress (Looks fairly uncomfortable) Eyes: Bilateral: Normal Appearance (No jaundice) Throat/Mouth: Normal Inspection Respiratory/Chest: No Respiratory Distress (Hydration looks adequate), Lungs Clear Cardiovascular: Regular Rate, Rhythm, Tachycardia GI/Abdominal Exam: Soft, Tender (Extremely tender to palpation throughout the entire abdomen, even light palpation causes guarding diffusely) Psychiatric: Anxious Skin Exam: Warm, Dry Course - Vital Signs Last Recorded V/S: Last Vital Signs Temp 98.5 F 11/15/19 13:07 Pulse 93 11/15/19 13:07 Resp 20 11/15/19 13:07 BP 137/63 11/15/19 13:07 Pulse Ox 94 L 11/15/19 13:07 - Orders/Labs/Meds Orders: Active Orders 24 hr Category Date Time Status Communication Order [RC] Per Unit Routine Care 11/15/19 12:08 Active SAUSAGE GRINDER Record [RC] Q4H Care 11/15/19 12:08 Active HYDROmorphone/Normal Saline [Dilaudid SAUSAGE GRINDER 15 MG in NS Med 11/15/19 12:15 Active 30 ML] 15 mg IV ASDIRECTED Naloxone [Narcan] Med 11/15/19 12:07 Active 0.04 mg IVPUSH Q3M PRN Ondansetron [Zofran] Med 11/15/19 12:07 Active 4 mg IVPUSH Q6H PRN diphenhydrAMINE [Benadryl] Med 11/15/19 12:07 Active 25 mg IVPUSH Q6H PRN diphenhydrAMINE [Benadryl] Med 11/15/19 12:07 Active 25 mg PO Q6H PRN Pulse Oximetry Continuous Monitoring [OM.PC] Routine Oth 11/15/19 12:08 Ordered Medication Orders Acetaminophen (Tylenol) 650 mg PO Q4H PRN PRN Reason: Pain (Mild 1-3)/fever Albuterol (Proventil Neb Soln) 2.5 mg NEB Q4H PRN PRN Reason: Shortness Of Breath/wheezing Amlodipine Besylate (Norvasc) 10 mg PO DAILY [facility] Artificial Tears (Genteal Mild To Moderate Ophth Soln) 0 ml EYEBOTH QID PRN PRN Reason: DRY EYES Carvedilol (Coreg) 6.25 mg PO BID [facility] Diphenhydramine HCl (Benadryl) 25 mg IVPUSH Q6H PRN PRN Reason: Itching Diphenhydramine HCl (Benadryl) 25 mg PO Q6H PRN PRN Reason: Itching Hydromorphone HCl (Dilaudid Router Setter 15 Mg In Ns 30 Ml) 15 mg IV ASDIRECTED [facility]; Protocol Lactated Ringer's (Ringers, Lactated) 1,000 mls @ 75 mls/hr IV ASDIRECTED [facility] Last Admin: 11/15/19 13:38 Dose: 75 mls/hr Insulin Human Lispro (Humalog) 0 unit SUBCUT QIDACANDBED [facility]; Protocol Lorazepam (Ativan) 0.5 mg IVPUSH Q4H PRN PRN Reason: Nausea/Vomiting Losartan Potassium (Cozaar) 100 mg PO DAILY [facility] Magnesium Hydroxide (Milk Of Magnesia) 30 ml PO Q12H PRN PRN Reason: Constipation Melatonin (Melatonin) 9 mg PO BEDTIME PRN PRN Reason: Sleep Mirtazapine (Remeron) 15 mg PO BEDTIME [facility] Naloxone HCl (Narcan) 0.04 mg IVPUSH Q3M PRN PRN Reason: Respiratory Depression Ondansetron HCl (Zofran) 4 mg IVPUSH Q6H PRN PRN Reason: Nausea/Vomiting Ondansetron HCl (Zofran Odt) 4 mg PO Q6H PRN PRN Reason: Nausea able to take PO Pantoprazole Sodium (Protonix Iv) 40 mg IV Q24H [facility] Senna/Docusate Sodium (Senna Plus) 1 tab PO BID PRN PRN Reason: Constipation Labs: Laboratory Tests 11/15/19 11/15/19 11/15/19 Range/Units 11:08 11:08 11:46 WBC 20.7 H (4.5-11.0) K/uL RBC 3.15 L (3.30-5.50) M/uL Hgb 9.9 L (12.0-15.0) g/dL Hct 30.4 L (36.0-48.0) % MCV 97 (80-98) fL MCH 31 (27-31) pg MCHC 33 (32-36) % Plt Count 346 (150-400) K/uL Add Manual Diff Yes Neutrophils % (Manual) 79 H (36-66) % Band Neutrophils % 6 (5-11) % Lymphocytes % (Manual) 9 L (24-44) % Monocytes % (Manual) 6 (2-6) % Sodium 128 L (140-148) mmol/L Potassium 4.7 (3.6-5.2) mmol/L Chloride 94 L (100-108) mmol/L Carbon Dioxide 22 (21-32) mmol/L Anion Gap 16.7 H (5.0-14.0) mmol/L BUN 24 H (7-18) mg/dL Creatinine 1.5 H (0.6-1.0) mg/dL Est Cr Clr Drug Dosing 36.79 mL/min Estimated GFR (MDRD) 36 L (>60) Glucose 404 H* (74-106) mg/dL Hemoglobin A1c 5.5 (4.5-6.2) % Calcium 9.7 (8.5-10.1) mg/dL Total Bilirubin 0.9 (0.2-1.0) mg/dL AST 37 (15-37) U/L ALT 15 (12-78) U/L Alkaline Phosphatase 316 H D (46-116) U/L Total Protein 6.9 (6.4-8.2) g/dL Albumin 2.3 L (3.4-5.0) g/dL Globulin 4.6 H (2.3-3.5) g/dL Albumin/Globulin Ratio 0.5 L (1.2-2.2) Amylase 19 L D (25-115) U/L Lipase 110 (73-393) U/L Meds: Medications Generic Name Dose Route Start Last Admin Trade Name Freq PRN Reason Stop Dose Admin Acetaminophen 650 mg 11/15/19 13:14 Tylenol PO Q4H PRN Pain (Mild 1-3)/fever Albuterol 2.5 mg 11/15/19 13:14 Proventil Neb Soln NEB Q4H PRN Shortness Of Breath/wheezing Amlodipine Besylate 10 mg 11/16/19 09:00 Norvasc PO DAILY [facility] Artificial Tears 0 ml 11/15/19 16:00 Genteal Mild To Moderate Ophth Soln EYEBOTH QID PRN DRY EYES Carvedilol 6.25 mg 11/15/19 21:00 Coreg PO BID [facility] Diphenhydramine HCl 25 mg 11/15/19 12:07 Benadryl IVPUSH Q6H PRN Itching Diphenhydramine HCl 25 mg 11/15/19 12:07 Benadryl PO Q6H PRN Itching Hydromorphone HCl 15 mg 11/15/19 12:15 Dilaudid Router Setter 15 Mg In Ns 30 Ml IV ASDIRECTED [facility] Protocol Lactated Ringer's 1,000 mls @ 75 mls/hr 11/15/19 13:14 11/15/19 13:38 Ringers, Lactated IV 75 mls/hr ASDIRECTED [facility] Administration Insulin Human Lispro 0 unit 11/15/19 17:00 Humalog SUBCUT QIDACANDBED [facility] Protocol Lorazepam 0.5 mg 11/15/19 13:14 Ativan IVPUSH Q4H PRN Nausea/Vomiting Losartan Potassium 100 mg 11/16/19 09:00 Cozaar PO DAILY [facility] Magnesium Hydroxide 30 ml 11/15/19 13:14 Milk Of Magnesia PO Q12H PRN Constipation Melatonin 9 mg 11/15/19 13:14 Melatonin PO BEDTIME PRN Sleep Mirtazapine 15 mg 11/15/19 21:00 Remeron PO BEDTIME [facility] Naloxone HCl 0.04 mg 11/15/19 12:07 Narcan IVPUSH Q3M PRN Respiratory Depression Ondansetron HCl 4 mg 11/15/19 12:07 Zofran IVPUSH Q6H PRN Nausea/Vomiting Ondansetron HCl 4 mg 11/15/19 13:14 Zofran Odt PO Q6H PRN Nausea able to take PO Pantoprazole Sodium 40 mg 11/15/19 14:00 Protonix Iv IV Q24H [facility] Senna/Docusate Sodium 1 tab 11/15/19 13:14 Senna Plus PO BID PRN Constipation Discontinued Medications Generic Name Dose Route Start Last Admin Trade Name Barryq PRN Reason Stop Dose Admin Hydromorphone HCl 0.5 mg 11/15/19 10:37 11/15/19 11:14 Dilaudid IVPUSH 11/15/19 10:38 0.5 mg ONETIME ONE Administration Hydromorphone HCl 1 mg 11/15/19 12:07 11/15/19 12:20 Dilaudid IVPUSH 11/15/19 12:08 1 mg ONETIME ONE Administration Lactated Ringer's 1,000 mls @ 1,000 mls/hr 11/15/19 10:37 11/15/19 11:14 Ringers, Lactated IV 11/15/19 11:36 1,000 mls/hr BOLUS ONE Administration Insulin Human Regular 8 unit 11/15/19 11:40 11/15/19 12:17 Humulin R IVPUSH 11/15/19 11:41 8 units ONETIME ONE Administration Ondansetron HCl 4 mg 11/15/19 11:19 11/15/19 11:27 Zofran IVPUSH 11/15/19 11:20 4 mg ONETIME ONE Administration - Re-Assessments/Exams Free Text/Narrative Re-Assessment/Exam: 11/15/19 10:41 An IV was started, patient will be hydrated with lactated Ringer's and given 0.5 mg of IV Dilaudid. CBC CMP amylase and lipase were obtained. 11/15/19 11:40 White count was just over 20,000, hemoglobin 9.9. Amylase and lipase are not elevated, she continued to have persistent nausea so 4 mg of IV Zofran was given. Her glucose returned at an elevated critical level of 404. 8 units of IV regular insulin were given and her condition was discussed with Dr. Guerrero of the hospitalist service. He agreed to evaluate her for possible admission versus further work-up such as a CT scan. Departure - Departure Time of Disposition: 13:13 Disposition: Admitted As Inpatient 67 Clinical Impression: Hyperglycemia Abdominal pain Qualifiers: Abdominal location: upper abdomen, unspecified Qualified Code(s): R10.10 - Upper abdominal pain, unspecified - Discharge Information Sepsis Event Note - Evaluation Sepsis Screening Result: No Definite Risk - Focused Exam Vital Signs: Vital Signs Temp Pulse Resp BP Pulse Ox 11/15/19 12:06 92 16 148/72 H 94 L 11/15/19 12:05 96 14 148/72 H 93 L 11/15/19 11:05 103 H 165/81 H 11/15/19 10:34 96.8 F 103 H 18 163/77 H 96 Date Exam was Performed: 11/15/19 Time Exam was Performed: 14:05
[2019-11-15] MEDS ORDERED: Ondansetron 4 MG/2 ML SDV IVPUSH ONE (11:19)
[2019-11-15] MEDS ORDERED: Insulin Regular, Human 100 Units/ML 3 ML Vial IVPUSH ONE (11:40)
[2019-11-15 12:04] LABS: HEMOGLOBIN A1C 5.5 % (4.5-6.2)
[2019-11-15] MEDS ORDERED: diphenhydrAMINE 50 MG/ML SDV IVPUSH PRN (12:07)
[2019-11-15] MEDS ORDERED: HYDROmorphone 1 MG/ML Syringe IVPUSH ONE (12:07)
[2019-11-15] MEDS ORDERED: diphenhydrAMINE 25 MG Cap PO PRN (12:07)
[2019-11-15] MEDS ORDERED: Naloxone 0.4 MG/ML SDV IVPUSH PRN (12:07)
--- NOTE | 2019-11-15 12:19 | PCM.HP.2 ---
H&P History of Present Illness - General Date of Service: 11/15/19 Admit Problem/Dx: Admission Diagnosis/Problem Admission Diagnosis/Problem Acute pancreatitis Source of Information: Patient, Provider History Limitations: Reports: No Limitations - History of Present Illness Initial Comments - Free Text/Narative: CC: I can't keep anything down HPI: Flavio presents to the emergency room today with 3 days of progressive abdominal pain with nausea, vomiting and some diarrhea. Pain is described as a sharp hot knife being stabbed into her upper abdomen that radiates through to the back. Pain started out mildly after bumping her abdomen on a tailgate and has progressed to the point that it is severe. Pain is worse with any sort of pressure on her abdomen. She has not taken anything at home to help it feel better. Pain has been steadily getting worse. This pain feels like her previous episodes of acute pancreatitis. She has had fairly constant nausea and several episodes of vomiting. She has not been able to keep anything down for the past couple of days. She tried some Gatorade this morning but vomited most of it up. She is not aware of any fevers or chills. Diarrhea is a little worse than usual. No sick contacts or significant travel history. She does not feel short of breath. Work-up in the emergency room was concerning for acute on chronic pancreatitis based on examination and history. Lipase level was normal. White blood cell count is elevated at about 20,000. Blood sugar is also elevated at more than 400. She has received medications for pain and nausea as well as some IV fluids. She will be admitted for additional management. Upper Abdominal Pain Score (Numeric/FACES): 10 - Related Data Allergies/Adverse Reactions: Allergies Allergy/AdvReac Type Severity Reaction Status Date / Time acetaminophen Allergy Severe Hives Verified 08/31/19 12:13 [From Darvocet-N 100] codeine Allergy Severe Hives Verified 08/31/19 12:13 Iodinated Contrast Media Allergy Severe Cannot Verified 08/31/19 12:13 [Iodinated Contrast Media - Remember IV Dye] iodine Allergy Severe Hives Verified 08/31/19 12:13 propoxyphene napsylate Allergy Severe Hives Verified 08/31/19 12:13 [From Darvocet-N 100] Sulfa (Sulfonamide Allergy Severe Hives Verified 08/31/19 12:13 Antibiotics) sulfamethoxazole Allergy Severe Rash Verified 08/31/19 12:13 [From Bactrim] tramadol Allergy Severe Anxiety Verified 08/31/19 12:13 trimethoprim [From Bactrim] Allergy Severe Rash Verified 08/31/19 12:13 barley Allergy Rash Verified 08/31/19 12:13 Home Medications: Home Meds Losartan [Cozaar] 100 mg PO DAILY 06/20/18 [History] Ondansetron [Zofran ODT] 4 mg PO Q6H PRN #7 tab.dis 10/10/18 [Rx] cycloSPORINE [Restasis] 1 drop EYEBOTH BID 02/03/19 [History] Lipase/Protease/Amylase [Pancreaze Dr 2,600 Unit Cap] 24,000 units PO TID [History] Omeprazole 40 mg PO DAILY 02/04/19 [History] amLODIPine [Norvasc] 10 mg PO DAILY 02/04/19 [History] Magnesium Oxide 400 mg PO BID #60 tablet 02/11/19 [Rx] Cholecalciferol (Vitamin D3) [Vitamin D3] 2,000 unit PO BID 05/14/19 [History] Hyoscyamine [Levsin] 0.25 mg PO Q4HR PRN 05/14/19 [History] carvediloL [Carvedilol] 6.25 mg PO BID 05/14/19 [History] Potassium Gluconate [Potassium] 1 tab PO BID 08/31/19 [History] Acetaminophen/HYDROcodone [[place] 325-5 MG] 1 - 2 tab PO Q6H PRN 11/15/19 [ History] Mirtazapine 1 tab PO BEDTIME 11/15/19 [History] Past Medical History HEENT History: Reports: Impaired Vision Cardiovascular History: Reports: Hypertension Respiratory History: Reports: None, Other (See Below) Other Respiratory History: ARDS in Aug 2019 Gastrointestinal History: Reports: Cholelithiasis, 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 Genitourinary History: Reports: None 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: Musculoskeletal History: Reports: None Neurological History: Reports: Concussion Psychiatric History: Reports: Addiction, Anxiety, Depression Other Psychiatric History: [place] Endocrine/Metabolic History: Reports: Diabetes, Type II Hematologic History: Reports: Blood Transfusion(s) Immunologic History: Reports: None Oncologic (Cancer) History: Reports: None - Infectious Disease History Infectious Disease History: Reports: Chicken Pox - Past Surgical History Head Surgeries/Procedures: Reports: None HEENT Surgical History: Reports: Tonsillectomy Cardiovascular Surgical History: Reports: None GI Surgical History: Reports: Appendectomy, Cholecystectomy, EGD, ERCP Female Surgical History: Reports: Section Endocrine Surgical History: Reports: None Musculoskeletal Surgical History: Reports: Arthroscopic Knee, Hip Replacement, Knee Replacement, Shoulder Surgery, Other (See Below) Other Musculoskeletal Surgeries/Procedures:: "rotator cuff surgery" Dermatological Surgical History: Reports: None Social & Family History - Family History Family Medical History: Noncontributory HEENT: Reports: None Cardiac: Reports: None Respiratory: Reports: None GI: Reports: 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 : Reports: Pyelonephritis, UTI, Recurrent OBGYN: Reports: None Musculoskeletal: Reports: Arthritis Neurological: Reports: None Psychiatric: Reports: None Endocrine/Metabolic: Reports: Diabetes, type II Hematologic: Reports: None Immunologic: Reports: None Dermatologic: Reports: None Oncologic: Reports: None - Tobacco Use Smoking Status *Q: Never Smoker Second Hand Smoke Exposure: No - Caffeine Use Caffeine Use: Reports: None - Recreational Drug Use Recreational Drug Use: No H&P Review of Systems - Review of Systems: Review Of Systems: See Below Free Text/Narrative: A complete 12 point review of systems was obtained. Pertinent positives and negatives are noted in the history of present illness. All other systems were reviewed and were negative except as noted. Exam - Exam Exam: See Below - Vital Signs Vital Signs: Last Vital Signs Temp 36.0 C 11/15/19 10:34 Pulse 103 H 11/15/19 10:34 Resp 18 11/15/19 10:34 BP 163/77 H 11/15/19 10:34 Pulse Ox 96 11/15/19 10:34 Weight: 65.8 kg - Exam Quality Assessment: No: Supplemental Oxygen General: Alert, Oriented, Cooperative, Mild Distress HEENT: Conjunctiva Clear. No: Mucosa Moist & [place] (dry), Scleral Icterus Neck: Supple, Trachea Midline. No: Lymphadenopathy Lungs: Clear to Auscultation, Normal Respiratory Effort Cardiovascular: Regular Rhythm, Tachycardia. No: Systolic Murmur GI/Abdominal Exam: Normal Bowel Sounds, Soft, Distended, Tender (moderate generalized ) Extremities: No Pedal Edema. No: Increased Warmth Peripheral Pulses: 2+: Dorsalis Pedis (L), Dorsalis Pedis (R) Skin: Warm, Dry Neuro Extensive - Mental Status: Alert, Oriented x3, Nl Response to Commands Neuro Extensive - Motor, Sensory, Reflexes: No: Dysarthria, Abnormal Motor, Tremor Psychiatric: Alert, Normal Affect - Patient Data Lab Results Last 24 hrs: Laboratory Results - last 24 hr 11/15/19 11/15/19 Range/Units 11:08 11:08 WBC 20.7 H (4.5-11.0) K/uL RBC 3.15 L (3.30-5.50) M/uL Hgb 9.9 L (12.0-15.0) g/dL Hct 30.4 L (36.0-48.0) % MCV 97 (80-98) fL MCH 31 (27-31) pg MCHC 33 (32-36) % Plt Count 346 (150-400) K/uL Add Manual Diff Yes Neutrophils % (Manual) 79 H (36-66) % Band Neutrophils % 6 (5-11) % Lymphocytes % (Manual) 9 L (24-44) % Monocytes % (Manual) 6 (2-6) % Sodium 128 L (140-148) mmol/L Potassium 4.7 (3.6-5.2) mmol/L Chloride 94 L (100-108) mmol/L Carbon Dioxide 22 (21-32) mmol/L Anion Gap 16.7 H (5.0-14.0) mmol/L BUN 24 H (7-18) mg/dL Creatinine 1.5 H (0.6-1.0) mg/dL Est Cr Clr Drug Dosing 36.79 mL/min Estimated GFR (MDRD) 36 L (>60) Glucose 404 H* (74-106) mg/dL Calcium 9.7 (8.5-10.1) mg/dL Total Bilirubin 0.9 (0.2-1.0) mg/dL AST 37 (15-37) U/L ALT 15 (12-78) U/L Alkaline Phosphatase 316 H D (46-116) U/L Total Protein 6.9 (6.4-8.2) g/dL Albumin 2.3 L (3.4-5.0) g/dL Globulin 4.6 H (2.3-3.5) g/dL Albumin/Globulin Ratio 0.5 L (1.2-2.2) Amylase 19 L D (25-115) U/L Lipase 110 (73-393) U/L Result Diagrams: 11/15/19 11:08 11/15/19 11:08 Sepsis Event Note - Evaluation Sepsis Screening Result: No Definite Risk - Focused Exam Vital Signs: Vital Signs Temp Pulse Resp BP Pulse Ox 11/15/19 10:34 36.0 C 103 H 18 163/77 H 96 Date Exam was Performed: 11/15/19 Time Exam was Performed: 13:36 *Q Meaningful Use (ADM) - VTE Risk Assess *Q Each Risk Factor Represents 1 Point: Age 41 - 59 years Total Score 1 Point Risk Factors: 1 Each Risk Factor Represents 2 Points: None Total Score 2 Point Risk Factors: 0 Each Risk Factor Represents 3 Points: None Total Score 3 Point Risk Factors: 0 Each Risk Factor Represents 5 Points: None Total Score 5 Point Risk Factors: 0 Venous Thromboembolism Risk Factor Score *Q: 1 - Problem List (1) Acute on chronic pancreatitis SNOMED Code(s): 774358067 ICD Code: K85.90 - ACUTE PANCREATITIS WITHOUT NECROSIS OR INFECTION, UNSP; K86.1 - OTHER CHRONIC PANCREATITIS Status: Acute Current Visit: No (2) Acute kidney injury SNOMED Code(s): 51494403, 13963664 ICD Code: N17.9 - ACUTE KIDNEY FAILURE, UNSPECIFIED Status: Acute Current Visit: Yes (3) Hyperglycemia SNOMED Code(s): 75835982 ICD Code: R73.9 - HYPERGLYCEMIA, UNSPECIFIED Status: Acute Current Visit : Yes Problem List Initiated/Reviewed/Updated: Yes Orders Last 24hrs: Active Orders 24 hr Category Date Time Status Patient Status Manage Transfer [TRANSFER] Routine ADT 11/15/19 12:09 Ordered Communication Order [RC] Per Unit Routine Care 11/15/19 12:08 Active MANAGER PACKAGING Record [RC] Q4H Care 11/15/19 12:08 Active Vital Signs [RC] PER UNIT ROUTINE Care 11/15/19 12:08 Active GLYCOSYLATED HEMOGLOBIN,HGBA1C [CHEM] Routine Lab 11/15/19 11:46 Ordered HYDROmorphone/Normal Saline [Dilaudid MANAGER PACKAGING 15 MG in NS Med 11/15/19 12:15 Ordered 30 ML] 15 mg IV ASDIRECTED Naloxone [Narcan] Med 11/15/19 12:07 Ordered 0.04 mg IVPUSH Q3M PRN Ondansetron [Zofran] Med 11/15/19 12:07 Ordered 4 mg IVPUSH Q6H PRN diphenhydrAMINE [Benadryl] Med 11/15/19 12:07 Ordered 25 mg IVPUSH Q6H PRN diphenhydrAMINE [Benadryl] Med 11/15/19 12:07 Ordered 25 mg PO Q6H PRN Pulse Oximetry Continuous Monitoring [OM.PC] Routine Oth 11/15/19 12:08 Ordered Resuscitation Status Routine Resus Stat 11/15/19 12:11 Ordered Medication Orders Diphenhydramine HCl (Benadryl) 25 mg IVPUSH Q6H PRN PRN Reason: Itching Diphenhydramine HCl (Benadryl) 25 mg PO Q6H PRN PRN Reason: Itching Hydromorphone HCl (Dilaudid Burr Bench Operator 15 Mg In Ns 30 Ml) 15 mg IV ASDIRECTED [facility]; Protocol Naloxone HCl (Narcan) 0.04 mg IVPUSH Q3M PRN PRN Reason: Respiratory Depression Ondansetron HCl (Zofran) 4 mg IVPUSH Q6H PRN PRN Reason: Nausea/Vomiting Assessment/Plan Comment:: ASSESSMENT AND PLAN - Acute on chronic pancreatitis-longstanding history of pancreatitis. She has done well for the past 3 months or so. Possible trigger for this attack was trauma several days ago. She has had progressive pain and is unable to keep anything down. Lipase is normal but history is consistent with pancreatitis. Vital signs are currently stable other than mild tachycardia. -Nothing by mouth status -Gentle IV fluids with somewhat recent ARDS following pancreatitis -Symptom management for pain (dilaudid MANAGER PACKAGING) and nausea -Repeat lipase in the morning -CT scan if symptoms worsen or she becomes febrile Acute kidney injury-creatinine is up to 1.5, likely due to dehydration with vomiting, diarrhea and no intake. -IV fluids -Labs in the morning Hyperglycemia-history of diabetes but has been off medications for some time. Hemoglobin A1c is only 5.5 so I suspect this elevated blood sugar is related to an inflammatory response with the pancreatitis. -Supplemental insulin as needed Maintenance issues - - DVT prophylaxis -mechanical - GI prophylaxis -IV PPI - Nutrition -nothing by mouth - Colon catheter -not indicated CODE STATUS -full code Admission justification -this patient will be admitted for inpatient services and is medically appropriate meeting medical necessity for inpatient admission as outlined in my documentation. I reasonably expect the patient will require inpatient services that span a period time over 2 midnights. I reasonably expect this patient to be discharged or transferred within 96 hours after admission to the [facility]. Disposition -I would anticipate discharge home after the hospital stay Primary care physician -Dr. Baldomero Guerrero M.D. - Mortality Measure Prognosis:: Good
[2019-11-15] MEDS ORDERED: Acetaminophen 325 MG Tab PO PRN (13:14)
[2019-11-15] MEDS ORDERED: Ondansetron 4 MG Tab.DIS PO PRN (13:14)
[2019-11-15] MEDS ORDERED: Magnesium Hydroxide 400 MG/5 ML Susp 30 ML Cup PO PRN (13:14)
[2019-11-15] MEDS ORDERED: Albuterol 0.083% 2.5 MG/3 ML Neb Soln NEB PRN (13:14)
[2019-11-15] MEDS ORDERED: Melatonin 3 MG Tab PO PRN (13:14)
[2019-11-15] MEDS ORDERED: LORazepam 2 MG/ML SDV IVPUSH PRN (13:14)
[2019-11-15] MEDS: Lactated Ringers 1,000 ML IV SCH ×2 (13:38→22:28)
[2019-11-15] MEDS: HYDROmorphone/Normal Saline 15 MG/30 ML PCA IV SCH (14:39)
[2019-11-15] MEDS: Pantoprazole 40 MG Vial IV SCH (14:41)
[2019-11-15] MEDS ORDERED: Hypromellose 0.3% Ophth Soln 15 ML Bottle EYEBOTH PRN (16:00)
[2019-11-15] MEDS: Insulin Lispro 100 Unit/ML 3 ML KwikPen SUBCUT SCH ×2 (17:10→21:16)
[2019-11-15] MEDS: Ondansetron 4 MG/2 ML SDV IVPUSH PRN (19:48)
[2019-11-15] MEDS: Mirtazapine 15 MG Tab PO SCH (21:16)
[2019-11-15] MEDS: Carvedilol 6.25 MG Tab PO SCH (21:16)
[2019-11-16] MEDS: Ondansetron 4 MG/2 ML SDV IVPUSH PRN (05:16)
[2019-11-16] MEDS: Insulin Lispro 100 Unit/ML 3 ML KwikPen SUBCUT SCH ×4 (08:06→23:03)
[2019-11-16] MEDS: Carvedilol 6.25 MG Tab PO SCH ×2 (08:53→20:37)
[2019-11-16] MEDS: Losartan 50 MG Tab PO SCH (08:54)
[2019-11-16] MEDS: amLODIPine 10 MG Tab PO SCH (08:54)
--- NOTE | 2019-11-16 11:11 | PCM.PN ---
- General Info Date of Service: 11/16/19 Subjective Update: No acute events overnight. Nausea is better and vomiting has resolved. Abdominal pain remains moderately severe and is stable compared to the time of admission. She did not have any fevers. She did require supplemental oxygen overnight. Lipase level is well within normal limits today. White blood cell count is stable. She has been tolerating ice chips. No more diarrhea reported. - Review of Systems General: Denies: Fever Gastrointestinal: Reports: Abdominal Pain. Denies: Vomiting - Patient Data Vitals - Most Recent: Last Vital Signs Temp 37.2 C 11/16/19 07:00 Pulse 90 11/16/19 08:53 Resp 20 11/16/19 07:00 BP 121/57 L 11/16/19 08:54 Pulse Ox 94 L 11/16/19 07:09 Weight - Most Recent: 65.8 kg I&O - Last 24 Hours: Intake & Output 11/15/19 11/16/19 11/16/19 22:59 06:59 14:59 Intake Total 386 634 Balance 386 634 Lab Results Last 24 Hours: Laboratory Results - last 24 hr 11/15/19 11/15/19 11/15/19 Range/Units 11:08 11:08 11:46 WBC 20.7 H (4.5-11.0) K/uL RBC 3.15 L (3.30-5.50) M/uL Hgb 9.9 L (12.0-15.0) g/dL Hct 30.4 L (36.0-48.0) % MCV 97 (80-98) fL MCH 31 (27-31) pg MCHC 33 (32-36) % Plt Count 346 (150-400) K/uL Add Manual Diff Yes Neutrophils % (Manual) 79 H (36-66) % Band Neutrophils % 6 (5-11) % Lymphocytes % (Manual) 9 L (24-44) % Monocytes % (Manual) 6 (2-6) % Sodium 128 L (140-148) mmol/L Potassium 4.7 (3.6-5.2) mmol/L Chloride 94 L (100-108) mmol/L Carbon Dioxide 22 (21-32) mmol/L Anion Gap 16.7 H (5.0-14.0) mmol/L BUN 24 H (7-18) mg/dL Creatinine 1.5 H (0.6-1.0) mg/dL Est Cr Clr Drug Dosing 36.79 mL/min Estimated GFR (MDRD) 36 L (>60) Glucose 404 H* (74-106) mg/dL Hemoglobin A1c 5.5 (4.5-6.2) % Calcium 9.7 (8.5-10.1) mg/dL Total Bilirubin 0.9 (0.2-1.0) mg/dL AST 37 (15-37) U/L ALT 15 (12-78) U/L Alkaline Phosphatase 316 H D (46-116) U/L Total Protein 6.9 (6.4-8.2) g/dL Albumin 2.3 L (3.4-5.0) g/dL Globulin 4.6 H (2.3-3.5) g/dL Albumin/Globulin Ratio 0.5 L (1.2-2.2) Amylase 19 L D (25-115) U/L Lipase 110 (73-393) U/L 11/16/19 11/16/19 Range/Units 06:03 06:03 WBC 20.1 H (4.5-11.0) K/uL RBC 2.86 L (3.30-5.50) M/uL Hgb 9.1 L (12.0-15.0) g/dL Hct 29.0 L (36.0-48.0) % MCV 101 H (80-98) fL MCH 32 H (27-31) pg MCHC 31 L (32-36) % Plt Count 267 (150-400) K/uL Add Manual Diff Neutrophils % (Manual) (36-66) % Band Neutrophils % (5-11) % Lymphocytes % (Manual) (24-44) % Monocytes % (Manual) (2-6) % Sodium 135 L (140-148) mmol/L Potassium 5.1 (3.6-5.2) mmol/L Chloride 100 (100-108) mmol/L Carbon Dioxide 26 (21-32) mmol/L Anion Gap 14.1 H (5.0-14.0) mmol/L BUN 24 H (7-18) mg/dL Creatinine 1.3 H (0.6-1.0) mg/dL Est Cr Clr Drug Dosing 42.44 mL/min Estimated GFR (MDRD) 42 L (>60) Glucose 123 H (74-106) mg/dL Hemoglobin A1c (4.5-6.2) % Calcium 9.5 (8.5-10.1) mg/dL Total Bilirubin 0.7 (0.2-1.0) mg/dL AST 66 H D (15-37) U/L ALT 19 (12-78) U/L Alkaline Phosphatase 289 H (46-116) U/L Total Protein 6.3 L (6.4-8.2) g/dL Albumin 2.1 L (3.4-5.0) g/dL Globulin 4.2 H (2.3-3.5) g/dL Albumin/Globulin Ratio 0.5 L (1.2-2.2) Amylase (25-115) U/L Lipase 33 L (73-393) U/L Med Orders - Current: Current Medications Acetaminophen (Tylenol) 650 mg PO Q4H PRN PRN Reason: Pain (Mild 1-3)/fever Albuterol (Proventil Neb Soln) 2.5 mg NEB Q4H PRN PRN Reason: Shortness Of Breath/wheezing Amlodipine Besylate (Norvasc) 10 mg PO DAILY [facility] Last Admin: 11/16/19 08:54 Dose: 10 mg Artificial Tears ([place] Mild To Moderate Ophth Soln) 0 ml EYEBOTH QID PRN PRN Reason: DRY EYES Carvedilol (Coreg) 6.25 mg PO BID [facility] Last Admin: 11/16/19 08:53 Dose: 6.25 mg Diphenhydramine HCl (Benadryl) 25 mg IVPUSH Q6H PRN PRN Reason: Itching Diphenhydramine HCl (Benadryl) 25 mg PO Q6H PRN PRN Reason: Itching Hydromorphone HCl (Dilaudid Substation Inspector 15 Mg In Ns 30 Ml) 15 mg IV ASDIRECTED [facility]; Protocol Last Admin: 11/15/19 14:39 Dose: 15 mg Lactated Ringer's (Ringers, Lactated) 1,000 mls @ 75 mls/hr IV ASDIRECTED [facility] Last Admin: 11/15/19 22:28 Dose: 75 mls/hr Insulin Human Lispro (Humalog) 0 unit SUBCUT QIDACANDBED [facility]; Protocol Last Admin: 11/16/19 08:06 Dose: Not Given Lorazepam (Ativan) 0.5 mg IVPUSH Q4H PRN PRN Reason: Nausea/Vomiting Last Admin: 11/15/19 21:29 Dose: 0.5 mg Losartan Potassium (Cozaar) 100 mg PO DAILY [facility] Last Admin: 11/16/19 08:54 Dose: 100 mg Magnesium Hydroxide (Milk Of Magnesia) 30 ml PO Q12H PRN PRN Reason: Constipation Melatonin (Melatonin) 9 mg PO BEDTIME PRN PRN Reason: Sleep Mirtazapine (Remeron) 15 mg PO BEDTIME [facility] Last Admin: 11/15/19 21:16 Dose: 15 mg Naloxone HCl (Narcan) 0.04 mg IVPUSH Q3M PRN PRN Reason: Respiratory Depression Ondansetron HCl (Zofran) 4 mg IVPUSH Q6H PRN PRN Reason: Nausea/Vomiting Last Admin: 11/16/19 05:16 Dose: 4 mg Ondansetron HCl (Zofran Odt) 4 mg PO Q6H PRN PRN Reason: Nausea able to take PO Pantoprazole Sodium (Protonix Iv) 40 mg IV Q24H [facility] Last Admin: 11/15/19 14:41 Dose: 40 mg Senna/Docusate Sodium (Senna Plus) 1 tab PO BID PRN PRN Reason: Constipation Discontinued Medications Hydromorphone HCl (Dilaudid) 0.5 mg IVPUSH ONETIME ONE Stop: 11/15/19 10:38 Last Admin: 11/15/19 11:14 Dose: 0.5 mg Hydromorphone HCl (Dilaudid) 1 mg IVPUSH ONETIME ONE Stop: 11/15/19 12:08 Last Admin: 11/15/19 12:20 Dose: 1 mg Lactated Ringer's (Ringers, Lactated) 1,000 mls @ 1,000 mls/hr IV BOLUS ONE Stop: 11/15/19 11:36 Last Admin: 11/15/19 11:14 Dose: 1,000 mls/hr Insulin Human Regular (Humulin R) 8 unit IVPUSH ONETIME ONE Stop: 11/15/19 11:41 Last Admin: 11/15/19 12:17 Dose: 8 units Ondansetron HCl (Zofran) 4 mg IVPUSH ONETIME ONE Stop: 11/15/19 11:20 Last Admin: 11/15/19 11:27 Dose: 4 mg - Exam Quality Assessment: Supplemental Oxygen General: Alert, Oriented, Cooperative, No Acute Distress Lungs: Clear to Auscultation, Normal Respiratory Effort Cardiovascular: Regular Rate, Regular Rhythm GI/Abdominal Exam: Soft, Distended, Tender Extremities: No Pedal Edema. No: Increased Warmth Skin: Warm, Dry Psy/Mental Status: Alert, Normal Affect Sepsis Event Note - Evaluation Sepsis Screening Result: No Definite Risk - Focused Exam Vital Signs: Vital Signs Temp Pulse Pulse Resp BP BP Pulse Ox 11/16/19 08:54 121/57 L 11/16/19 08:53 90 121/57 L 11/16/19 07:09 94 L 11/16/19 07:00 37.2 C 82 20 121/57 L 98 11/16/19 03:46 35.7 C 90 16 124/54 L 95 11/16/19 03:34 85 L 11/16/19 00:52 95 Date Exam was Performed: 11/16/19 Time Exam was Performed: 13:58 - Problem List & Annotations (1) Acute on chronic pancreatitis SNOMED Code(s): 380470017 Code(s): K85.90 - ACUTE PANCREATITIS WITHOUT NECROSIS OR INFECTION, UNSP; K86.1 - OTHER CHRONIC PANCREATITIS Status: Acute Current Visit: No (2) Acute kidney injury SNOMED Code(s): 74625899, 41822249 Code(s): N17.9 - ACUTE KIDNEY FAILURE, UNSPECIFIED Status: Acute Current Visit: Yes (3) Hyperglycemia SNOMED Code(s): 79549968 Code(s): R73.9 - HYPERGLYCEMIA, UNSPECIFIED Status: Acute Current Visit: Yes - Problem List Review Problem List Initiated/Reviewed/Updated: Yes - My Orders Last 24 Hours: My Active Orders 11/15/19 12:07 Naloxone [Narcan] 0.04 mg IVPUSH Q3M PRN Ondansetron [Zofran] 4 mg IVPUSH Q6H PRN diphenhydrAMINE [Benadryl] 25 mg IVPUSH Q6H PRN diphenhydrAMINE [Benadryl] 25 mg PO Q6H PRN 11/15/19 12:08 Communication Order [RC] Per Unit Routine SLUDGE FILTRATION ATTENDANT Record [RC] Q4H Pulse Oximetry Continuous Monitoring [OM.PC] Routine 11/15/19 12:11 Resuscitation Status Routine 11/15/19 12:15 HYDROmorphone/Normal Saline [Dilaudid SLUDGE FILTRATION ATTENDANT 15 MG in NS 30 ML] 15 mg IV ASDIRECTED 11/15/19 13:14 Patient Status [ADT] Routine Antiembolic Devices [RC] .Routine Communication Order [RC] PRN Communication Order [RC] PRN Diabetes Education [RC] Click to Edit Height and Weight [RC] DAILY Intake and Output [RC] QSHIFT Notify Provider Vital Signs [RC] ASDIRECTED Notify Provider [RC] PRN Oxygen Therapy [RC] PRN RT Aerosol Therapy [RC] ASDIRECTED Up With Assistance [RC] ASDIRECTED VTE/DVT Education [RC] Per Unit Routine Vital Signs [RC] Q4H Acetaminophen [Tylenol] 650 mg PO Q4H PRN Albuterol [Proventil Neb Soln] 2.5 mg NEB Q4H PRN Docusate Sodium/Sennosides [Senna Plus] 1 tab PO BID PRN LORazepam [Ativan] 0.5 mg IVPUSH Q4H PRN Lactated Ringers [Ringers, Lactated] 1,000 ml IV ASDIRECTED Magnesium Hydroxide [Milk of Magnesia] 30 ml PO Q12H PRN Melatonin 9 mg PO BEDTIME PRN Ondansetron [Zofran ODT] 4 mg PO Q6H PRN Sequential Compression Device [OM.PC] Routine 11/15/19 14:00 Pantoprazole [ProTONIX IV] 40 mg IV Q24H 11/15/19 16:00 Hypromellose [GenTeal Mild to Moderate Ophth Soln] 0 ml EYEBOTH QID PRN 11/15/19 17:00 Blood Glucose Check, Bedside [RC] QIDACANDBED Insulin Lispro [HumaLOG] See Protocol SUBCUT QIDACANDBED 11/15/19 21:00 Mirtazapine [Remeron] 15 mg PO BEDTIME carvediloL [Coreg] 6.25 mg PO BID 11/15/19 Lunch Nothing per Oral Now Diet [DIET] 11/16/19 09:00 Losartan [Cozaar] 100 mg PO DAILY amLODIPine [Norvasc] 10 mg PO DAILY 11/16/19 11:30 GLUCOSE POC LAB TO COLLECT [POC] QIDACANDBED 11/16/19 16:30 GLUCOSE POC LAB TO COLLECT [POC] QIDACANDBED 11/16/19 21:00 GLUCOSE POC LAB TO COLLECT [POC] QIDACANDBED 11/17/19 05:00 BASIC METABOLIC PANEL,BMP [CHEM] Timed CBC W/O DIFF,HEMOGRAM [HEME] Timed (1) 11/17/19 07:30 GLUCOSE POC LAB TO COLLECT [POC] QIDACANDBED 11/17/19 11:30 GLUCOSE POC LAB TO COLLECT [POC] QIDACANDBED 11/17/19 16:30 GLUCOSE POC LAB TO COLLECT [POC] QIDACANDBED 11/17/19 21:00 GLUCOSE POC LAB TO COLLECT [POC] QIDACANDBED 11/18/19 07:30 GLUCOSE POC LAB TO COLLECT [POC] QIDACANDBED 11/18/19 11:30 GLUCOSE POC LAB TO COLLECT [POC] QIDACANDBED 11/18/19 16:30 GLUCOSE POC LAB TO COLLECT [POC] QIDACANDBED 11/18/19 21:00 GLUCOSE POC LAB TO COLLECT [POC] QIDACANDBED 11/19/19 07:30 GLUCOSE POC LAB TO COLLECT [POC] QIDACANDBED 11/19/19 11:30 GLUCOSE POC LAB TO COLLECT [POC] QIDACANDBED 11/19/19 16:30 GLUCOSE POC LAB TO COLLECT [POC] QIDACANDBED 11/19/19 21:00 GLUCOSE POC LAB TO COLLECT [POC] QIDACANDBED 11/20/19 07:30 GLUCOSE POC LAB TO COLLECT [POC] QIDACANDBED 11/20/19 11:30 GLUCOSE POC LAB TO COLLECT [POC] QIDACANDBED 11/20/19 16:30 GLUCOSE POC LAB TO COLLECT [POC] QIDACANDBED 11/20/19 21:00 GLUCOSE POC LAB TO COLLECT [POC] QIDACANDBED - Plan Plan:: ASSESSMENT AND PLAN - Acute on chronic pancreatitis-longstanding history of pancreatitis. Nausea and vomiting have improved but pain is still moderately severe. She has otherwise been stable. Lipase level well within normal limits. -Nothing by mouth status -Continue gentle IV fluids with somewhat recent ARDS following pancreatitis -Symptom management for pain (dilaudid SLUDGE FILTRATION ATTENDANT) and nausea -CT scan if symptoms worsen or she becomes febrile Acute kidney injury-creatinine was up to 1.5 at the time of admission but is slowly improving. -Gentle IV fluids -Labs in the morning Hyperglycemia-history of diabetes but has been off medications for some time. Hemoglobin A1c is only 5.5 so I suspect this elevated blood sugar is related to an inflammatory response with the pancreatitis. Sugars have been acceptable so far. -Supplemental insulin as needed Maintenance issues - - DVT prophylaxis -mechanical - GI prophylaxis -IV PPI - Nutrition -nothing by mouth Disposition -I would anticipate discharge home after the hospital stay Edilberto Guerrero M.D.
[2019-11-16] MEDS: Lactated Ringers 1,000 ML IV SCH (12:06)
[2019-11-16] MEDS: Pantoprazole 40 MG Vial IV SCH (14:43)
[2019-11-16] MEDS: HYDROmorphone/Normal Saline 15 MG/30 ML PCA IV SCH (15:54)
[2019-11-16] MEDS: Mirtazapine 15 MG Tab PO SCH (20:39)
[2019-11-17] MEDS: Lactated Ringers 1,000 ML IV SCH (01:15)
[2019-11-17] MEDS: Insulin Lispro 100 Unit/ML 3 ML KwikPen SUBCUT SCH ×2 (07:32→11:00)
[2019-11-17] MEDS: Carvedilol 6.25 MG Tab PO SCH (10:22)
[2019-11-17] MEDS: Losartan 50 MG Tab PO SCH (10:23)
[2019-11-17] MEDS: amLODIPine 10 MG Tab PO SCH (10:23)
[2019-11-17] MEDS ORDERED: oxyCODONE 5 MG Tab PO PRN (10:55)
[2019-11-17] MEDS ORDERED: Amylase/Lipase/Protease 12,000 Unit Cap.CR PO SCH (12:00)
--- NOTE | 2019-11-17 13:24 | PCM.DCSUM1 ---
Discharge Summary - Hospital Course Brief History: 59-year-old female with history of chronic recurrent pancreatitis who presented with progressive abdominal pain with nausea vomiting and diarrhea. She was admitted for management of a flare of her pancreatitis. Diagnosis: Stroke: No - Discharge Data Discharge Date: 11/17/19 Discharge Disposition: Home, Self-Care 01 Condition: Fair - Referral to Home Health Primary Care Physician: Obi Alexandre MD - Discharge Diagnosis/Problem(s) (1) Acute on chronic pancreatitis SNOMED Code(s): 143257442 ICD Code: K85.90 - ACUTE PANCREATITIS WITHOUT NECROSIS OR INFECTION, UNSP; K86.1 - OTHER CHRONIC PANCREATITIS Status: Resolved Current Visit: No (2) Acute kidney injury SNOMED Code(s): 33697190, 77829792 ICD Code: N17.9 - ACUTE KIDNEY FAILURE, UNSPECIFIED Status: Acute Current Visit: Yes (3) Hyperglycemia SNOMED Code(s): 89710275 ICD Code: R73.9 - HYPERGLYCEMIA, UNSPECIFIED Status: Acute Current Visit : Yes - Patient Summary/Data Hospital Course: Flavio presented to the emergency room with progressive abdominal pain with nausea , vomiting as well as some worsening of her diarrhea. Work-up in the emergency room was concerning for a flare of her pancreatitis with the lipase level at the upper limits of normal not combined with her significant exam findings and history. We did not perform a CT scan because there were no red flag symptoms along with the diverticulitis. She did not have any fevers. She was admitted to the hospital for management of acute pancreatitis with IV fluids as well as symptom management with a Dilaudid [employer]NAGER and nausea management. Overnight following admission her pain remained relatively stable but her lipase level improved significantly. We continued n.p.o. status with gentle IV fluids and symptom management. Over the next 24 hours there is a more dramatic improvement. Her pain is much better at this time. Her use of the IV pain medication has been decreasing steadily. She has not had any nausea or vomiting. She is interested in trying some liquids and pain pills. She tolerated this transition well without any increase in her pain and she did not develop any nausea or vomiting. She is interested in going home at this time. She feels she has adequate resources. She has been had multiple episodes in the past. I believe she is safe for discharge at this time. She is not requiring supplemental oxygen at the time of discharge. - Patient Instructions Diet: Usual Diet as Tolerated Activity: As Tolerated Showering/Bathing: May Shower Notify Provider of: Fever, Increased Pain, Nausea and/or Vomiting Other/Special Instructions: Usual diet as tolerated. Follow up as scheduled with Dr Alexandre. Return if worsening or not getting better - Discharge Plan *PRESCRIPTION DRUG MONITORING PROGRAM REVIEWED*: Not Applicable *COPY OF PRESCRIPTION DRUG MONITORING REPORT IN PATIENT DARNELL: Not Applicable Home Medications: Home Meds Losartan [Cozaar] 100 mg PO DAILY 06/20/18 [History] Ondansetron [Zofran ODT] 4 mg PO Q6H PRN #7 tab.dis 10/10/18 [Rx] cycloSPORINE [Restasis] 1 drop EYEBOTH BID 02/03/19 [History] Omeprazole 40 mg PO DAILY 02/04/19 [History] amLODIPine [Norvasc] 10 mg PO DAILY 02/04/19 [History] Magnesium Oxide 400 mg PO BID #60 tablet 02/11/19 [Rx] Cholecalciferol (Vitamin D3) [Vitamin D3] 2,000 unit PO BID 05/14/19 [History] Hyoscyamine [Levsin] 0.25 mg PO Q4HR PRN 05/14/19 [History] carvediloL [Carvedilol] 6.25 mg PO BID 05/14/19 [History] Potassium Gluconate [Potassium] 1 tab PO BID 08/31/19 [History] Acetaminophen/HYDROcodone [[place] 325-5 MG] 1 - 2 tab PO Q6H PRN 11/15/19 [ History] Mirtazapine 1 tab PO BEDTIME 11/15/19 [History] Amylase/Lipase/Protease [Laquita THOMAS 24,000 Unit] 3 cap PO TIDAC 11/17/19 [History] Oxygen Therapy Mode: Room Air Patient Handouts: Acute 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 Referrals: Obi Alexandre MD [Primary Care Provider] - 11/20/19 11:15 am (Please arrive 15 minutes early to register for your appointment.) - Discharge Summary/Plan Comment DC Time >30 min.: No - Patient Data Vitals - Most Recent: Last Vital Signs Temp 37.0 C 11/17/19 07:28 Pulse 90 11/17/19 10:22 Resp 16 11/17/19 07:28 BP 105/47 L 11/17/19 10:23 Pulse Ox 92 L 11/17/19 07:45 Weight - Most Recent: 69.309 kg I&O - Last 24 hours: Intake & Output 11/16/19 11/17/19 11/17/19 22:59 06:59 14:59 Intake Total 937 893 442 Output Total 100 325 300 Balance 837 568 142 Lab Results - Last 24 hrs: Laboratory Results - last 24 hr 11/17/19 11/17/19 Range/Units 05:53 05:53 WBC 24.3 H (4.5-11.0) K/uL RBC 2.81 L (3.30-5.50) M/uL Hgb 8.9 L (12.0-15.0) g/dL Hct 29.0 L (36.0-48.0) % MCV 103 H (80-98) fL MCH 32 H (27-31) pg MCHC 31 L (32-36) % Plt Count 254 (150-400) K/uL Sodium 136 L (140-148) mmol/L Potassium 4.9 (3.6-5.2) mmol/L Chloride 101 (100-108) mmol/L Carbon Dioxide 24 (21-32) mmol/L Anion Gap 15.9 H (5.0-14.0) mmol/L BUN 25 H (7-18) mg/dL Creatinine 1.7 H (0.6-1.0) mg/dL Est Cr Clr Drug Dosing 33.77 mL/min Estimated GFR (MDRD) 31 L (>60) Glucose 113 H (74-106) mg/dL Calcium 9.7 (8.5-10.1) mg/dL Med Orders - Current: Current Medications Acetaminophen (Tylenol) 650 mg PO Q4H PRN PRN Reason: Pain (Mild 1-3)/fever Albuterol (Proventil Neb Soln) 2.5 mg NEB Q4H PRN PRN Reason: Shortness Of Breath/wheezing Amlodipine Besylate (Norvasc) 10 mg PO DAILY [facility] Last Admin: 11/17/19 10:23 Dose: 10 mg Lipase/Protease/Amylase (Creon Dr 12,000 Units) 3 cap PO TIDMEALS [facility] Last Admin: 11/17/19 11:25 Dose: 3 cap Artificial Tears (Genteal Mild To Moderate Ophth Soln) 0 ml EYEBOTH QID PRN PRN Reason: DRY EYES Carvedilol (Coreg) 6.25 mg PO BID [facility] Last Admin: 11/17/19 10:22 Dose: 6.25 mg Diphenhydramine HCl (Benadryl) 25 mg IVPUSH Q6H PRN PRN Reason: Itching Diphenhydramine HCl (Benadryl) 25 mg PO Q6H PRN PRN Reason: Itching Insulin Human Lispro (Humalog) 0 unit SUBCUT QIDACANDBED [facility]; Protocol Last Admin: 11/17/19 07:32 Dose: Not Given Lorazepam (Ativan) 0.5 mg IVPUSH Q4H PRN PRN Reason: Nausea/Vomiting Last Admin: 11/15/19 21:29 Dose: 0.5 mg Losartan Potassium (Cozaar) 100 mg PO DAILY [facility] Last Admin: 11/17/19 10:23 Dose: 100 mg Magnesium Hydroxide (Milk Of Magnesia) 30 ml PO Q12H PRN PRN Reason: Constipation Melatonin (Melatonin) 9 mg PO BEDTIME PRN PRN Reason: Sleep Mirtazapine (Remeron) 15 mg PO BEDTIME [facility] Last Admin: 11/16/19 20:39 Dose: 15 mg Ondansetron HCl (Zofran) 4 mg IVPUSH Q6H PRN PRN Reason: Nausea/Vomiting Last Admin: 11/16/19 05:16 Dose: 4 mg Ondansetron HCl (Zofran Odt) 4 mg PO Q6H PRN PRN Reason: Nausea able to take PO Oxycodone HCl (Oxycodone) 5 mg PO Q4H PRN PRN Reason: Pain (moderate 4-6) Senna/Docusate Sodium (Senna Plus) 1 tab PO BID PRN PRN Reason: Constipation Discontinued Medications Hydromorphone HCl (Dilaudid) 0.5 mg IVPUSH ONETIME ONE Stop: 11/15/19 10:38 Last Admin: 11/15/19 11:14 Dose: 0.5 mg Hydromorphone HCl (Dilaudid) 1 mg IVPUSH ONETIME ONE Stop: 11/15/19 12:08 Last Admin: 11/15/19 12:20 Dose: 1 mg Hydromorphone HCl (Dilaudid Executive Communications Manager 15 Mg In Ns 30 Ml) 15 mg IV ASDIRECTED [facility]; Protocol Last Admin: 11/16/19 15:54 Dose: 15 mg Lactated Ringer's (Ringers, Lactated) 1,000 mls @ 1,000 mls/hr IV BOLUS ONE Stop: 11/15/19 11:36 Last Admin: 11/15/19 11:14 Dose: 1,000 mls/hr Lactated Ringer's (Ringers, Lactated) 1,000 mls @ 75 mls/hr IV ASDIRECTED [facility] Last Admin: 11/17/19 01:15 Dose: 75 mls/hr Insulin Human Regular (Humulin R) 8 unit IVPUSH ONETIME ONE Stop: 11/15/19 11:41 Last Admin: 11/15/19 12:17 Dose: 8 units Naloxone HCl (Narcan) 0.04 mg IVPUSH Q3M PRN PRN Reason: Respiratory Depression Ondansetron HCl (Zofran) 4 mg IVPUSH ONETIME ONE Stop: 11/15/19 11:20 Last Admin: 11/15/19 11:27 Dose: 4 mg Pantoprazole Sodium (Protonix Iv) 40 mg IV Q24H [facility] Last Admin: 11/16/19 14:43 Dose: 40 mg
[2019-11-17 15:57] VITALS: BP 107/55; PULSE 88
== END 2019-11-17 13:45 | disposition home or self-care (01) | DRG 439 ==
LOC: JP.ED 08:55 → JP.MS 12:09 → JP.2SS 12:49
PROVIDERS: ADMIT Internal Medicine; ATTEND Internal Medicine
DX: R10.10 Upper abdominal pain, unspecified (principal); K85.90 Acute pancreatitis without necrosis or infection, unspecified; N17.9 Acute kidney failure, unspecified; E86.0 Dehydration; I10 Essential (primary) hypertension; H54.7 Unspecified visual loss; F41.9 Anxiety disorder, unspecified; F32.9 Major depressive disorder, single episode, unspecified; E11.65 Type 2 diabetes mellitus with hyperglycemia; Z96.659 Presence of unspecified artificial knee joint; Z96.649 Presence of unspecified artificial hip joint; K86.1 Other chronic pancreatitis; Z91.041 Radiographic dye allergy status; Z88.2 Allergy status to sulfonamides; Z88.8 Allergy status to other drugs, medicaments and biological substances; Z79.899 Other long term (current) drug therapy; Z90.89 Acquired absence of other organs; Z88.5 Allergy status to narcotic agent; Z90.49 Acquired absence of other specified parts of digestive tract; Z98.890 Other specified postprocedural states; Z99.81 Dependence on supplemental oxygen
CPT/HCPCS: 36415; 80053; 82150; 83036; 83690; 85025; J1170; J1815; J2405; J7120; 80048; 82962; 85027; 94762; 96361; 96374; 96375; 99284; 99284-25; A9270-GY; C9113; J2060

== ENCOUNTER 2019-11-19 19:20 | Emergency (ER) | payer MEDICARE, OTHER ==
[2019-11-19] MEDS ORDERED: HYDROmorphone 1 MG/ML Syringe IVPUSH ONE ×2 (21:38→23:55)
[2019-11-19] MEDS ORDERED: cefTRIAXone 1 GM in Sodium Chloride 0.9% 50 ML IV ONE (21:39)
[2019-11-19] MEDS ORDERED: Acetaminophen 1,000 MG in Premix Bag 1 BAG IV ONE (21:40)
[2019-11-19 21:42] VITALS: BP 130/75; PULSE 94
[2019-11-19] MEDS ORDERED: Sodium Chloride 0.9% 1,000 ML IV SCH (21:45)
--- NOTE | 2019-11-19 23:42 | CRLCT ---
INDICATION: Abdominal pain. History of pancreatitis TECHNIQUE: CT abdomen and pelvis without contrast. COMPARISON: 08/31/2019 FINDINGS: Lower chest: Minimal subsegmental atelectasis. Liver: A 3.0 x 2.5 x 2.0 cm ovoid low-density area in the central liver at the emanuel hepatis on image 24, and an additional 3.9 x 4.0 x 2.4 cm ovoid low density area containing ill-defined foci of increased attenuation more inferiorly on image 34, new. Tubular areas of decreased attenuation in the posterior segment of the right hepatic lobe which could represent progression of intrahepatic portal venous thrombosis or intrahepatic biliary dilatation, and evaluation is limited without contrast. Spleen: Unremarkable. Pancreas: An ill-defined 2.9 x 3.1 x 2.8 cm low-density area in the pancreatic head on image 31 and an adjacent curvilinear/tubular low density area on image 33, extending to the proximal pancreatic body which could be related to progression of thrombosis of the portal confluence and central portion of the inferior mesenteric vein or dilatation of the pancreatic duct, measuring up to 1.6 cm in diameter. Mild peripancreatic stranding or scarring. Gallbladder and bile ducts: Cholecystectomy. Apparent mild thickening of the cystic duct remnant wall on images 35-37. The CBD measures up to 8 mm. Adrenal glands: A 9 mm focal nodularity of the left adrenal body again seen, indeterminate. Kidneys: No hydronephrosis. A small right renal parenchymal calcification and a small ill-defined high attenuation focus in the left renal upper pole, nonspecific. The distal ureters are obscured by artifact. No discrete calcifications seen in the visualized portions of the ureters. GI tract: No mechanical bowel obstruction. The appendix is not seen. Persistent circumferential wall thickening of the cecum and ascending colon. Scattered colonic diverticula. A 1.8 x 1.7 cm ovoid soft tissue density along the posterior wall of the proximal sigmoid colon on images 87-92, not seen on the prior study, with trace adjacent stranding, which could represent a prominent opacified diverticulum with mild, early diverticular inflammation. Vascular structures: Atherosclerotic changes. Abdominal venous collaterals. Lymph nodes: Shotty subcentimeter upper abdominal and retroperitoneal lymph nodes, nonspecific. No abnormally enlarged lymph nodes seen. Miscellaneous: No significant free fluid or free air. Mild thickening of the posterior left upper abdominal peritoneal reflection with small foci of mild nodularity, although these could be related to vessels. Pelvic Organs: Obscured by artifact. Hysterectomy. Bones: Bilateral hip arthroplasties. Degenerative changes in the spine IMPRESSION: Ovoid low-density areas/lesions in the central liver and pancreatic head, not seen on the prior study, not well evaluated. These could be partially related to progression of portal venous thrombosis, however complex collections or low-density mass lesions are not excluded. Tubular low-attenuation areas in the right hepatic lobe and proximal pancreatic body could be related to progression of venous thrombosis or biliary and pancreatic duct dilatation. Recommend further evaluation with contrast MRI or CT. Mild peripancreatic stranding could represent acute pancreatitis or scarring. Correlate with pancreatic enzymes. Apparent mild thickening of the cystic duct remnant wall. Correlate clinically to exclude cholangitis. Wall thickening in the cecum and ascending colon compatible with persistent or recurrent colitis. An ovoid soft tissue density along the posterior aspect of the proximal sigmoid colon with slight adjacent stranding, not seen on the prior study, probably representing a large opacified diverticulum with mild early diverticular inflammation, however colonoscopic evaluation is recommended following treatment to exclude a lesion. Dictated by Jeremy Severino MD @ 11/19/2019 11:40:26 PM Please note that all CT scans at this facility use dose modulation, iterative reconstruction, and/or weight-based dosing when appropriate to reduce radiation dose to as low as reasonably achievable. Dictated by: Jeremy Severino MD @ 11/19/2019 23:40:38 (Electronically Signed)
--- NOTE | 2019-11-20 00:22 | EDM.PDOC ---
ED HPI GENERAL MEDICAL PROBLEM - General Chief Complaint: Abdominal Pain Stated Complaint: ABDOMINAL PAIN Time Seen by Provider: 11/19/19 19:35 Source of Information: Reports: Patient History Limitations: Reports: No Limitations - History of Present Illness INITIAL COMMENTS - FREE TEXT/NARRATIVE: Chief Complaint: abdomen pain This is a 59 year old female present to ER with abdominal pain. Ms. Anil sparrow has hospitalized from Sunday (11-15-19 to 11-17-19) to Sunday then discharge to home. Since Sunday continues to have abdominal pain not controlled by Hydrocodone. She has not eaten since yesterday morning due to pain and nausea. reports abdominal bloating, severe pain from upper abdomen to upper back. Duration: Day(s):, Getting Worse Location: Reports: Abdomen, Generalized (weakness. ) Quality: Reports: Same as Previous Episode (recurrent pancreatitis) Severity: Severe (rates pain 8-9 out of 10) Improves with: Reports: None Worsens with: Reports: Eating Associated Symptoms: Reports: Fever/Chills, Nausea/Vomiting, Weakness Treatments DYE RANGE FEEDER: Reports: Other (see below) Abdominal Pain Score (Numeric/FACES): 10 - Related Data Allergies Allergy/AdvReac Type Severity Reaction Status Date / Time acetaminophen Allergy Severe Hives Verified 11/19/19 20:16 [From Darvocet-N 100] codeine Allergy Severe Hives Verified 11/19/19 20:16 Iodinated Contrast Media Allergy Severe Cannot Verified 11/19/19 20:16 [Iodinated Contrast Media - Remember IV Dye] iodine Allergy Severe Hives Verified 11/19/19 20:16 propoxyphene napsylate Allergy Severe Hives Verified 11/19/19 20:16 [From Darvocet-N 100] Sulfa (Sulfonamide Allergy Severe Hives Verified 11/19/19 20:16 Antibiotics) sulfamethoxazole Allergy Severe Rash Verified 11/19/19 20:16 [From Bactrim] tramadol Allergy Severe Anxiety Verified 11/19/19 20:16 trimethoprim [From Bactrim] Allergy Severe Rash Verified 11/19/19 20:16 barley Allergy Rash Verified 11/19/19 20:16 Home Meds: Home Meds Losartan [Cozaar] 100 mg PO DAILY 06/20/18 [History] Ondansetron [Zofran ODT] 4 mg PO Q6H PRN #7 tab.dis 12/27/18 [Rx] cycloSPORINE [Restasis] 1 drop EYEBOTH BID 02/03/19 [History] Omeprazole 40 mg PO DAILY 02/04/19 [History] amLODIPine [Norvasc] 10 mg PO DAILY 02/04/19 [History] Magnesium Oxide 400 mg PO BID #60 tablet 02/11/19 [Rx] Cholecalciferol (Vitamin D3) [Vitamin D3] 2,000 unit PO BID 05/14/19 [History] carvediloL [Carvedilol] 6.25 mg PO BID 05/14/19 [History] Potassium Gluconate [Potassium] 1 tab PO BID 08/31/19 [History] Acetaminophen/HYDROcodone [[place] 325-5 MG] 1 - 2 tab PO Q6H PRN 11/15/19 [ History] Mirtazapine 1 tab PO BEDTIME 11/15/19 [History] Amylase/Lipase/Protease [Laquita DR 24,000 Unit] 3 cap PO TIDAC 11/17/19 [History] Past Medical History HEENT History: Reports: Impaired Vision Cardiovascular History: Reports: Hypertension Respiratory History: Reports: Other (See Below) Other Respiratory History: ARDS in Aug 2019 Gastrointestinal History: Reports: Cholelithiasis, 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 Genitourinary History: Reports: None 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: Musculoskeletal History: Reports: None Neurological History: Reports: Concussion Psychiatric History: Reports: Addiction, Anxiety, Depression Other Psychiatric History: Lizeth Lopez Endocrine/Metabolic History: Reports: Diabetes, Type II Hematologic History: Reports: Blood Transfusion(s) Immunologic History: Reports: None Oncologic (Cancer) History: Reports: None - Infectious Disease History Infectious Disease History: Reports: Chicken Pox - Past Surgical History Head Surgeries/Procedures: Reports: None HEENT Surgical History: Reports: Tonsillectomy GI Surgical History: Reports: Appendectomy, Cholecystectomy, EGD, ERCP Female Surgical History: Reports: Section Musculoskeletal Surgical History: Reports: Arthroscopic Knee, Hip Replacement, Knee Replacement, Shoulder Surgery, Other (See Below) Other Musculoskeletal Surgeries/Procedures:: "rotator cuff surgery" Social & Family History - Family History Family Medical History: Noncontributory HEENT: Reports: None Cardiac: Reports: None Respiratory: Reports: None GI: Reports: 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 : Reports: Pyelonephritis, UTI, Recurrent OBGYN: Reports: None Musculoskeletal: Reports: Arthritis Neurological: Reports: None Psychiatric: Reports: None Endocrine/Metabolic: Reports: Diabetes, type II Hematologic: Reports: None Immunologic: Reports: None Dermatologic: Reports: None Oncologic: Reports: None - Tobacco Use Smoking Status *Q: Never Smoker - Caffeine Use Caffeine Use: Reports: None - Recreational Drug Use Recreational Drug Use: No - Living Situation & Occupation Living situation: Reports: with Significant Other (lives with Boyfriend in [facility]) ED ROS GENERAL - Review of Systems Review Of Systems: See Below Constitutional: Reports: Fever, Chills, Malaise, Weakness, Fatigue, Decreased Appetite HEENT: Reports: No Symptoms Respiratory: Reports: No Symptoms Cardiovascular: Reports: No Symptoms Endocrine: Reports: No Symptoms GI/Abdominal: Reports: Abdominal Pain, Decreased Appetite, Distension, Nausea : Reports: Dysuria Musculoskeletal: Reports: Back Pain (upper) Skin: Reports: No Symptoms Neurological: Reports: No Symptoms Psychiatric: Reports: Anxiety Hematologic/Lymphatic: Reports: No Symptoms Immunologic: Reports: No Symptoms ED EXAM, GI/ABD - Physical Exam Exam: See Below Exam Limited By: No Limitations General Appearance: Alert, Anxious (crying), Moderate Distress Eyes: Bilateral: Normal Appearance Ears: Normal External Exam, Normal Canal Nose: Normal Inspection, Normal Mucosa Throat/Mouth: Normal Inspection, Normal Lips, Normal Teeth, Normal Gums, Normal Voice, No Airway Compromise, Other (mouth is dry) Head: Atraumatic, Normocephalic Neck: Normal Inspection, Supple, Non-Tender, Full Range of Motion Respiratory/Chest: No Respiratory Distress, Lungs Clear, Normal Breath Sounds, No Accessory Muscle Use, Chest Non-Tender Cardiovascular: Regular Rate, Rhythm, No Edema, No Murmur GI/Abdominal Exam: Normal Bowel Sounds, Tender (generalized abdominal pain more pronounced in mid-abdomen radiates to the back) (Female) Exam: Deferred Rectal (Female) Exam: Deferred Back Exam: Normal Inspection, Full Range of Motion Extremities: Normal Inspection, Normal Range of Motion, Non-Tender, No Pedal Edema, Normal Capillary Refill Neurological: Alert, Oriented, No Motor/Sensory Deficits Psychiatric: Anxious, Tearful Skin Exam: Warm, Dry, Intact, Normal Color, No Rash Lymphatic: No Adenopathy Course - Vital Signs Last Recorded V/S: Last Vital Signs Temp 38.2 C H 02/05/20 20:12 Pulse 94 11/19/19 21:41 Resp 16 11/19/19 20:12 BP 130/75 11/19/19 21:41 Pulse Ox 95 11/19/19 21:41 - Orders/Labs/Meds Orders: Active Orders 24 hr Category Date Time Status CULTURE URINE [RM] Stat Lab 11/20/19 00:00 Ordered Sodium Chloride 0.9% [Normal Saline] 1,000 ml Med 11/19/19 21:45 Active IV ASDIRECTED Medication Orders Sodium Chloride (Normal Saline) 1,000 mls @ 150 mls/hr IV ASDIRECTED GILLIAN Last Admin: 11/19/19 22:11 Dose: 150 mls/hr Labs: Laboratory Tests 11/19/19 11/19/19 11/19/19 Range/Units 20:25 21:55 21:55 WBC 12.3 H (4.5-11.0) K/uL RBC 3.19 L (3.30-5.50) M/uL Hgb 10.0 L (12.0-15.0) g/dL Hct 31.2 L (36.0-48.0) % MCV 98 (80-98) fL MCH 31 (27-31) pg MCHC 32 (32-36) % Plt Count 343 (150-400) K/uL Add Manual Diff Yes Neutrophils % (Manual) 80 H (36-66) % Band Neutrophils % 2 L (5-11) % Lymphocytes % (Manual) 8 L (24-44) % Monocytes % (Manual) 10 H (2-6) % Anisocytosis Moderate H Spherocytes Few H PT 11.7 (9.5-12.0) sec INR 1.09 (0.80-1.20) Sodium (140-148) mmol/L Potassium (3.6-5.2) mmol/L Chloride (100-108) mmol/L Carbon Dioxide (21-32) mmol/L Anion Gap (5.0-14.0) mmol/L BUN (7-18) mg/dL Creatinine (0.6-1.0) mg/dL Est Cr Clr Drug Dosing mL/min Estimated GFR (MDRD) (>60) Glucose (74-106) mg/dL Calcium (8.5-10.1) mg/dL Magnesium (1.8-2.4) mg/dL Total Bilirubin (0.2-1.0) mg/dL AST (15-37) U/L ALT (12-78) U/L Alkaline Phosphatase (46-116) U/L Total Protein (6.4-8.2) g/dL Albumin (3.4-5.0) g/dL Globulin (2.3-3.5) g/dL Albumin/Globulin Ratio (1.2-2.2) Amylase (25-115) U/L Lipase (73-393) U/L Urine Color Yellow (YELLOW) Urine Appearance Cloudy A (CLEAR) Urine pH 6.0 (5.0-8.0) Ur Specific [place] 1.015 (1.008-1.030) Urine Protein Negative (NEGATIVE) mg/dL Urine Glucose (UA) Negative (NEGATIVE) mg/dL Urine Ketones Negative (NEGATIVE) mg/dL Urine Occult Blood Negative (NEGATIVE) Urine Nitrite Positive H (NEGATIVE) Urine Bilirubin Negative (NEGATIVE) Urine Urobilinogen 2.0 H (0.2-1.0) EU/dL Ur Leukocyte Esterase Trace H (NEGATIVE) Urine RBC 0-5 (0-5) Urine WBC 5-10 H (0-5) Ur Epithelial Cells Few Amorphous Sediment Not seen Urine Bacteria Many Urine Mucus Few 11/19/19 Range/Units 21:55 WBC (4.5-11.0) K/uL RBC (3.30-5.50) M/uL Hgb (12.0-15.0) g/dL Hct (36.0-48.0) % MCV (80-98) fL MCH (27-31) pg MCHC (32-36) % Plt Count (150-400) K/uL Add Manual Diff Neutrophils % (Manual) (36-66) % Band Neutrophils % (5-11) % Lymphocytes % (Manual) (24-44) % Monocytes % (Manual) (2-6) % Anisocytosis Spherocytes PT (9.5-12.0) sec INR (0.80-1.20) Sodium 132 L (140-148) mmol/L Potassium 4.2 (3.6-5.2) mmol/L Chloride 97 L (100-108) mmol/L Carbon Dioxide 27 (21-32) mmol/L Anion Gap 12.2 (5.0-14.0) mmol/L BUN 24 H (7-18) mg/dL Creatinine 1.4 H (0.6-1.0) mg/dL Est Cr Clr Drug Dosing 39.41 mL/min Estimated GFR (MDRD) 39 L (>60) Glucose 108 H (74-106) mg/dL Calcium 9.4 (8.5-10.1) mg/dL Magnesium 0.6 L D (1.8-2.4) mg/dL Total Bilirubin 0.4 (0.2-1.0) mg/dL AST 25 (15-37) U/L ALT 15 (12-78) U/L Alkaline Phosphatase 226 H (46-116) U/L Total Protein 6.9 (6.4-8.2) g/dL Albumin 2.3 L (3.4-5.0) g/dL Globulin 4.6 H (2.3-3.5) g/dL Albumin/Globulin Ratio 0.5 L (1.2-2.2) Amylase 12 L (25-115) U/L Lipase 29 L (73-393) U/L Urine Color (YELLOW) Urine Appearance (CLEAR) Urine pH (5.0-8.0) Ur Specific Ariton (1.008-1.030) Urine Protein (NEGATIVE) mg/dL Urine Glucose (UA) (NEGATIVE) mg/dL Urine Ketones (NEGATIVE) mg/dL Urine Occult Blood (NEGATIVE) Urine Nitrite (NEGATIVE) Urine Bilirubin (NEGATIVE) Urine Urobilinogen (0.2-1.0) EU/dL Ur Leukocyte Esterase (NEGATIVE) Urine RBC (0-5) Urine WBC (0-5) Ur Epithelial Cells Amorphous Sediment Urine Bacteria Urine Mucus Meds: Medications Generic Name Dose Route Start Last Admin Trade Name Freq PRN Reason Stop Dose Admin Sodium Chloride 1,000 mls @ 150 mls/hr 11/19/19 21:45 11/19/19 22:11 Normal Saline IV 150 mls/hr ASDIRECTED GILLIAN Administration Discontinued Medications Generic Name Dose Route Start Last Admin Trade Name Freq PRN Reason Stop Dose Admin Hydromorphone HCl 1 mg 11/19/19 21:38 11/19/19 22:11 Dilaudid IVPUSH 11/19/19 21:39 1 mg ONETIME ONE Administration Hydromorphone HCl 1 mg 11/19/19 23:55 11/20/19 00:05 Dilaudid IVPUSH 11/19/19 23:56 1 mg ONETIME ONE Administration Ceftriaxone Sodium 1 gm/ 50 mls @ 100 mls/hr 11/19/19 21:39 11/19/19 22:12 Sodium Chloride IV 11/19/19 22:08 100 mls/hr ONETIME ONE Administration Acetaminophen 1,000 mg/ Premix 100 mls @ 400 mls/hr 11/19/19 21:40 11/19/19 23:04 IV 11/19/19 21:54 400 mls/hr NOW ONE Administration Departure - Departure Time of Disposition: 00:30 Disposition: DC/Tfer to Acute Hospital 02 Condition: Fair Clinical Impression: 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, Abdominal pain - Discharge Information *PRESCRIPTION DRUG MONITORING PROGRAM REVIEWED*: Not Applicable *COPY OF PRESCRIPTION DRUG MONITORING REPORT IN PATIENT DARNELL: Not Applicable Instructions: Acute 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 Referrals: Obi Alexandre MD [Primary Care Provider] - Care Plan Goals: Acute 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 Mrs. Ma continues to have abdomen pain. [facility] is closed to hospital at full capacity. consulted with Shawn SÁNCHEZ. will accept for admission Ms. Ma agree with plan of care. Sepsis Event Note - Evaluation Sepsis Screening Result: No Definite Risk - Focused Exam Vital Signs: Vital Signs Temp Pulse Resp BP Pulse Ox 11/19/19 21:41 94 130/75 95 11/19/19 20:12 38.2 C H 89 16 134/65 96 11/19/19 20:08 38.2 C H 89 16 134/65 96 Date Exam was Performed: 11/20/19 Time Exam was Performed: 00:17 - Problem List & Annotations (1) 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 SNOMED Code(s): 06676552 Code(s): K85.90 - ACUTE PANCREATITIS WITHOUT NECROSIS OR INFECTION, UNSP Status: Acute Priority: High Current Visit: Yes Qualifiers: Chronicity: acute Acute pancreatitis complication: no infection or necrosis - Problem List Review Problem List Initiated/Reviewed/Updated: Yes - My Orders Last 24 Hours: My Active Orders 11/19/19 21:45 Sodium Chloride 0.9% [Normal Saline] 1,000 ml IV ASDIRECTED 11/20/19 00:00 CULTURE URINE [RM] Stat - Assessment/Plan Last 24 Hours: My Active Orders 11/19/19 21:45 Sodium Chloride 0.9% [Normal Saline] 1,000 ml IV ASDIRECTED 11/20/19 00:00 CULTURE URINE [RM] Stat Plan: transfer by EMS to [facility] for further care and treatment.
[2019-11-20] MEDS ORDERED: HYDROmorphone 1 MG/ML Syringe IVPUSH ONE (00:36)
== END 2019-11-20 01:20 ==
LOC: JP.ED 19:20
DX: K85.90 Acute pancreatitis without necrosis or infection, unspecified (principal); E11.9 Type 2 diabetes mellitus without complications; I10 Essential (primary) hypertension; Z79.899 Other long term (current) drug therapy; Z88.2 Allergy status to sulfonamides; Z88.8 Allergy status to other drugs, medicaments and biological substances; Z91.041 Radiographic dye allergy status
CPT/HCPCS: 36415; 74176; 80053; 81001; 82150; 83690; 83735; 85025; 85610; 87086; 87088; 87186; 96361; 96365; 96375; 96376; 99284; 99285; J0131; J0696; J1170; J7030; J7050

== ENCOUNTER 2020-08-19 09:27 | Emergency (ER) | payer MEDICARE ==
[2020-08-19 09:49] VITALS: BP 92/42; PULSE 68
--- NOTE | 2020-08-19 10:03 | EDM.PDOC ---
ED HPI GENERAL MEDICAL PROBLEM - General Chief Complaint: Respiratory Problem Stated Complaint: VOMITING,SHORT OF BREATH Time Seen by Provider: 08/19/20 09:50 Source of Information: Reports: Patient History Limitations: Reports: No Limitations - History of Present Illness INITIAL COMMENTS - FREE TEXT/NARRATIVE: 60-year-old female who recently underwent a celiac block for chronic pain, feels like she cannot take a deep breath since that time she also feels weak, intermittent fevers, and sore throat. She was scheduled to have a Covid test repeated at 10:30 this morning but felt too weak to wait and called the clinic and they could not get her in any sooner so they sent her to the emergency room. She arrives with normal oxygen saturations, afebrile, normal respiratory rate. Onset: Unknown/Unsure Associated Symptoms: Reports: Fever/Chills, Loss of Appetite, Malaise, Shortness of Breath (Dyspnea is intermittent, she feels like she cannot get a deep breath), Weakness, Other (Sore throat) - Related Data Allergies Allergy/AdvReac Type Severity Reaction Status Date / Time acetaminophen Allergy Severe Hives Verified 11/19/19 20:16 [From Darvocet-N 100] codeine Allergy Severe Hives Verified 11/19/19 20:16 Iodinated Contrast Media Allergy Severe Cannot Verified 11/19/19 20:16 [Iodinated Contrast Media - Remember IV Dye] iodine Allergy Severe Hives Verified 11/19/19 20:16 propoxyphene napsylate Allergy Severe Hives Verified 11/19/19 20:16 [From Darvocet-N 100] Sulfa (Sulfonamide Allergy Severe Hives Verified 11/19/19 20:16 Antibiotics) sulfamethoxazole Allergy Severe Rash Verified 11/19/19 20:16 [From Bactrim] tramadol Allergy Severe Anxiety Verified 11/19/19 20:16 trimethoprim [From Bactrim] Allergy Severe Rash Verified 11/19/19 20:16 barley Allergy Rash Verified 11/19/19 20:16 Home Meds: Home Meds Losartan [Cozaar] 100 mg PO DAILY 06/20/18 [History] Ondansetron [Zofran ODT] 4 mg PO Q6H PRN #7 tab.dis 10/10/18 [Rx] cycloSPORINE [Restasis] 1 drop EYEBOTH BID 02/03/19 [History] Omeprazole 40 mg PO DAILY 02/04/19 [History] amLODIPine [Norvasc] 10 mg PO DAILY 02/04/19 [History] Magnesium Oxide 400 mg PO BID #60 tablet 02/11/19 [Rx] Cholecalciferol (Vitamin D3) [Vitamin D3] 2,000 unit PO BID 05/14/19 [History] carvediloL [Carvedilol] 6.25 mg PO BID 05/14/19 [History] Potassium Gluconate [Potassium] 1 tab PO BID 08/31/19 [History] Acetaminophen/HYDROcodone [[place] 325-5 MG] 1 - 2 tab PO Q6H PRN 11/15/19 [History] Mirtazapine 1 tab PO BEDTIME 11/15/19 [History] Amylase/Lipase/Protease [Laquita THOMAS 24,000 Unit] 3 cap PO TIDAC 11/17/19 [History] Past Medical History HEENT History: Reports: Impaired Vision Cardiovascular History: Reports: Hypertension Respiratory History: Reports: Other (See Below) Other Respiratory History: ARDS in Aug 2019 Gastrointestinal History: Reports: Cholelithiasis, 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 Genitourinary History: Reports: None 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 History: Reports: None Neurological History: Reports: Concussion Psychiatric History: Reports: Addiction, Anxiety, Depression Other Psychiatric History: [place] Endocrine/Metabolic History: Reports: Diabetes, Type II Hematologic History: Reports: Blood Transfusion(s) Immunologic History: Reports: None Oncologic (Cancer) History: Reports: None - Infectious Disease History Infectious Disease History: Reports: Chicken Pox - Past Surgical History Head Surgeries/Procedures: Reports: None HEENT Surgical History: Reports: Tonsillectomy GI Surgical History: Reports: Appendectomy, Cholecystectomy, EGD, ERCP Female Surgical History: Reports: Section Musculoskeletal Surgical History: Reports: Arthroscopic Knee, Hip Replacement, Knee Replacement, Shoulder Surgery, Other (See Below) Other Musculoskeletal Surgeries/Procedures:: "rotator cuff surgery" Dermatological Surgical History: Reports: None Social & Family History - Family History Family Medical History: Noncontributory HEENT: Reports: None Cardiac: Reports: None Respiratory: Reports: None GI: Reports: 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 : Reports: Pyelonephritis, UTI, Recurrent OBGYN: Reports: None Musculoskeletal: Reports: Arthritis Neurological: Reports: None Psychiatric: Reports: None Endocrine/Metabolic: Reports: Diabetes, type II Hematologic: Reports: None Immunologic: Reports: None Dermatologic: Reports: None Oncologic: Reports: None - Tobacco Use Tobacco Use Status *Q: Never Tobacco User - Caffeine Use Caffeine Use: Reports: None - Recreational Drug Use Recreational Drug Use: No - Living Situation & Occupation Living situation: Reports: with Significant Other (lives with Boyfriend in [place], [place].) ED ROS GENERAL - Review of Systems Review Of Systems: See Below Constitutional: Reports: Fever, Chills, Malaise, Decreased Appetite HEENT: Reports: Throat Pain. Denies: Ear Pain Respiratory: Reports: Shortness of Breath, Cough (Intermittent mild cough) Cardiovascular: Denies: Chest Pain GI/Abdominal: Reports: Other (Chronic abdominal pain due to pancreatitis) Neurological: Reports: Weakness. Denies: Headache ED EXAM, GENERAL - Physical Exam Exam: See Below Exam Limited By: No Limitations General Appearance: Alert, No Apparent Distress Eye Exam: Bilateral Eye: Normal Inspection Throat/Mouth: Normal Inspection Head: Atraumatic Respiratory/Chest: No Respiratory Distress, Lungs Clear, Decreased Breath Sounds (Lungs are clear but she does sound like she has decreased sounds in the right base) Cardiovascular: Regular Rate, Rhythm Neurological: Alert, Oriented Psychiatric: Normal Affect, Normal Mood Skin Exam: Warm, Dry Course - Vital Signs Last Recorded V/S: Last Vital Signs Temp 95.6 F L 08/19/20 09:49 Pulse 68 08/19/20 09:49 Resp 18 08/19/20 09:49 BP 92/42 L 08/19/20 09:49 Pulse Ox 98 08/19/20 09:49 - Orders/Labs/Meds Orders: Active Orders 24 hr Category Date Time Status CORONAVIRUS COVID-19, JIMMY Stat Lab 08/19/20 10:30 Ordered CULTURE STREP A CONFIRMATION [RM] Routine Lab 08/19/20 10:00 Results STREP SCRN A RAPID W CULT CONF [RM] Routine Lab 08/19/20 10:00 Results - Re-Assessments/Exams Free Text/Narrative Re-Assessment/Exam: 08/19/20 10:03 A rapid strep was obtained, and the patient was sent for two-view chest x-ray because of her recent thoracic procedure. 08/19/20 10:31 Chest x-ray is negative, strep is negative. Covid test obtained and the patient was discharged will rest at home and quarantine until Covid test is back. She can return if she feels she is worsening especially persistent shortness of breath. Departure - Departure Time of Disposition: 10:42 Disposition: Home, Self-Care 01 Clinical Impression: Viral URI with cough - Discharge Information Instructions: Viral Respiratory Infection, [id number] Referrals: Obi Alexandre MD [Primary Care Provider] - Forms: ED Department Discharge Care Plan Goals: Continue your current medications, get plenty of fluids and rest and quarantine until your Covid test returns. You can return to the emergency room for reassessment if you are worsening, especially persistent shortness of breath. Sepsis Event Note (ED) - Evaluation Sepsis Screening Result: No Definite Risk - Focused Exam Vital Signs: Vital Signs Temp Pulse Resp BP Pulse Ox 08/19/20 09:49 95.6 F L 68 18 92/42 L 98 - My Orders Last 24 Hours: My Active Orders 08/19/20 10:00 CULTURE STREP A CONFIRMATION [RM] Routine STREP SCRN A RAPID W CULT CONF [] Routine 08/19/20 10:30 CORONAVIRUS COVID-19, JIMMY Stat - Assessment/Plan Last 24 Hours: My Active Orders 08/19/20 10:00 CULTURE STREP A CONFIRMATION [RM] Routine STREP SCRN A RAPID W CULT CONF [] Routine 08/19/20 10:30 CORONAVIRUS COVID-19, JIMMY Stat
--- NOTE | 2020-08-19 10:24 | CR ---
CHEST: 2 view CLINICAL HISTORY:Dyspnea COMPARISON:Portable 09/06/2019 FINDINGS: Patient has an Rbsygg-p-Dgyw catheter from the right subclavian approach. Heart size pulmonary vascularity and hilar structures are normal. No infiltrate effusion or pneumothorax is seen. There are atherosclerotic changes in the aorta. Impression: Ithyzt-r-Vmea catheter is in good position No acute cardiopulmonary process.
== END 2020-08-19 10:43 | disposition home or self-care (01) ==
LOC: JP.ED 09:27
DX: J06.9 Acute upper respiratory infection, unspecified (principal); I10 Essential (primary) hypertension; F41.9 Anxiety disorder, unspecified; F32.9 Major depressive disorder, single episode, unspecified; E11.9 Type 2 diabetes mellitus without complications; Z79.899 Other long term (current) drug therapy; Z20.828 Contact with and (suspected) exposure to other viral communicable diseases; Z88.6 Allergy status to analgesic agent; Z88.5 Allergy status to narcotic agent; Z91.041 Radiographic dye allergy status; Z91.048 Other nonmedicinal substance allergy status; Z88.2 Allergy status to sulfonamides
CPT/HCPCS: 71046; 87081; 87880; 99285; U0002

== ENCOUNTER 2020-08-20 14:14 | Inpatient (IN) | payer MEDICARE ==
[2020-08-20] MEDS ORDERED: HYDROmorphone 0.5 MG/0.5 ML Syringe IVPUSH ONE (15:47)
--- NOTE | 2020-08-20 15:49 | EDM.PDOC ---
ED HPI GENERAL MEDICAL PROBLEM - General Chief Complaint: Abdominal Pain Stated Complaint: [facility] Time Seen by Provider: 08/20/20 15:48 Source of Information: Reports: Patient History Limitations: Reports: No Limitations - History of Present Illness INITIAL COMMENTS - FREE TEXT/NARRATIVE: pt has pain in the upper abdoman and feelssob. When ever she couches she wretches and vomits. Onset: Gradual Duration: Day(s): Location: Reports: Chest, Abdomen Associated Symptoms: Reports: Loss of Appetite, Nausea/Vomiting, Shortness of Breath Abdomen Pain Score (Numeric/FACES): 7 - Related Data Allergies Allergy/AdvReac Type Severity Reaction Status Date / Time acetaminophen Allergy Severe Hives Verified 08/20/20 14:25 [From Darvocet-N 100] codeine Allergy Severe Hives Verified 08/20/20 14:25 iodine Allergy Severe Hives Verified 08/20/20 14:25 propoxyphene napsylate Allergy Severe Hives Verified 08/20/20 14:25 [From Darvocet-N 100] Sulfa (Sulfonamide Allergy Severe Hives Verified 08/20/20 14:25 Antibiotics) sulfamethoxazole Allergy Severe Rash Verified 08/20/20 14:25 [From Bactrim] trimethoprim [From Bactrim] Allergy Severe Rash Verified 08/20/20 14:25 barley Allergy Rash Verified 08/20/20 14:25 tramadol AdvReac Severe Anxiety Verified 08/20/20 16:10 Home Meds: Home Meds Losartan [Cozaar] 100 mg PO DAILY 06/20/18 [History] Ondansetron [Zofran ODT] 4 mg PO Q6H PRN #7 tab.dis 10/10/18 [Rx] cycloSPORINE [Restasis] 1 drop EYEBOTH BID 02/03/19 [History] Omeprazole 40 mg PO DAILY 02/04/19 [History] amLODIPine [Norvasc] 10 mg PO DAILY 02/04/19 [History] Magnesium Oxide 400 mg PO BID #60 tablet 02/11/19 [Rx] Cholecalciferol (Vitamin D3) [Vitamin D3] 2,000 unit PO BID 05/14/19 [History] carvediloL [Carvedilol] 6.25 mg PO BID 05/14/19 [History] Potassium Gluconate [Potassium] 1 tab PO BID 08/31/19 [History] Acetaminophen/HYDROcodone [[place] 325-5 MG] 1 - 2 tab PO Q6H PRN 11/15/19 [History] Mirtazapine 1 tab PO BEDTIME 11/15/19 [History] Amylase/Lipase/Protease [Laquita DR 24,000 Unit] 3 cap PO TIDAC 11/17/19 [History] Rivaroxaban [Xarelto] 15 mg PO BID 08/20/20 [History] Past Medical History HEENT History: Reports: Impaired Vision Cardiovascular History: Reports: Hypertension Respiratory History: Reports: Other (See Below) Other Respiratory History: ARDS in Aug 2019 Gastrointestinal History: Reports: Cholelithiasis, 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 Genitourinary History: Reports: None 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: Musculoskeletal History: Reports: None Neurological History: Reports: Concussion Psychiatric History: Reports: Addiction, Anxiety, Depression Other Psychiatric History: [place] Endocrine/Metabolic History: Reports: Diabetes, Type II Hematologic History: Reports: Blood Transfusion(s) Immunologic History: Reports: None Oncologic (Cancer) History: Reports: None - Infectious Disease History Infectious Disease History: Reports: Chicken Pox, Measles, Mumps - Past Surgical History Head Surgeries/Procedures: Reports: None HEENT Surgical History: Reports: Tonsillectomy GI Surgical History: Reports: Appendectomy, Cholecystectomy, EGD, ERCP Female Surgical History: Reports: Section Musculoskeletal Surgical History: Reports: Arthroscopic Knee, Hip Replacement, Knee Replacement, Shoulder Surgery, Other (See Below) Other Musculoskeletal Surgeries/Procedures:: "rotator cuff surgery" Dermatological Surgical History: Reports: None Social & Family History - Family History Family Medical History: Noncontributory HEENT: Reports: None Cardiac: Reports: None Respiratory: Reports: None GI: Reports: 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 : Reports: Pyelonephritis, UTI, Recurrent OBGYN: Reports: None Musculoskeletal: Reports: Arthritis Neurological: Reports: None Psychiatric: Reports: None Endocrine/Metabolic: Reports: Diabetes, type II Hematologic: Reports: None Immunologic: Reports: None Dermatologic: Reports: None Oncologic: Reports: None - Tobacco Use Tobacco Use Status *Q: Former Tobacco User Used Tobacco, but Quit: Yes Month/Year Tobacco Last Used: august 2019 - Caffeine Use Caffeine Use: Reports: Soda - Recreational Drug Use Recreational Drug Use: No - Living Situation & Occupation Living situation: Reports: with Significant Other (lives with Boyfriend in [place], [place].) ED ROS GENERAL - Review of Systems Review Of Systems: See Below Constitutional: Reports: Malaise, Weakness, Other (pt is wretching. ) HEENT: Reports: No Symptoms Respiratory: Reports: Other (pt feels sob and it hurts when she breathes. ) Cardiovascular: Reports: No Symptoms Endocrine: Reports: No Symptoms GI/Abdominal: Reports: Abdominal Pain, Other (pt had a celiac block about 2 weeks ago . She has pain in the upper abdoman and there seemes to be some areas of firmness present. ) Musculoskeletal: Reports: No Symptoms Skin: Reports: No Symptoms Neurological: Reports: No Symptoms Psychiatric: Reports: Anxiety ED EXAM, GI/ABD - Physical Exam Exam: See Below Text/Narrative:: pt is having pain in the upper abdoman. She had a celiac block done about 2 weeks ago. She seemes to get some diaphramatic irritation and then this stimulates a cough. She then starte wretching. Exam Limited By: No Limitations General Appearance: Alert, Anxious, Moderate Distress Ears: Normal TMs Nose: Normal Inspection Throat/Mouth: Normal Inspection Head: Atraumatic Neck: Normal Inspection Respiratory/Chest: Other (pt feels sob and hurts when she takes a deep breath. ) Cardiovascular: Regular Rate, Rhythm GI/Abdominal Exam: Guarding, Tender (Female) Exam: Deferred Rectal (Female) Exam: Deferred Back Exam: Normal Inspection Extremities: Normal Inspection Neurological: Alert, Oriented, Normal Cognition Psychiatric: Anxious Course - Vital Signs Last Recorded V/S: Last Vital Signs Temp 36.7 C 08/22/20 21:17 Pulse 71 08/22/20 17:18 Resp 20 08/23/20 00:00 BP 103/64 08/23/20 00:00 Pulse Ox 93 L 08/23/20 00:00 - Orders/Labs/Meds Orders: Medication Orders Hydrocodone Bitart/Acetaminophen ([place] 325-5 Mg) 1 - 2 tab PO Q6H PRN PRN Reason: Pain Last Admin: 08/22/20 12:54 Dose: 2 tab Documented by: Admin: 08/22/20 07:30 Dose: 2 tab Documented by: Admin: 08/21/20 21:15 Dose: 2 tab Documented by: Admin: 08/21/20 15:25 Dose: 2 tab Documented by: RENETTA Albuterol (Proventil Neb Soln) 2.5 mg NEB Q4H PRN PRN Reason: Shortness Of Breath/wheezing Last Admin: 08/22/20 23:34 Dose: 2.5 mg Documented by: Admin: 08/22/20 16:56 Dose: 2.5 mg Documented by: Admin: 08/22/20 13:06 Dose: 2.5 mg Documented by: RENETTA Amlodipine Besylate (Norvasc) 10 mg PO DAILY [facility] Last Admin: 08/22/20 11:22 Dose: 10 mg Documented by: Admin: 08/21/20 08:36 Dose: 10 mg Documented by: RENETTA Lipase/Protease/Amylase (Laquita Hilario 12,000 Units) 6 cap PO TIDAC [facility] Last Admin: 08/22/20 16:28 Dose: Not Given Documented by: Admin: 08/22/20 11:15 Dose: 2 cap Documented by: Admin: 08/22/20 07:35 Dose: Not Given Documented by: Admin: 08/21/20 17:06 Dose: Not Given Documented by: Admin: 08/21/20 14:03 Dose: Not Given Documented by: Admin: 08/21/20 08:21 Dose: 6 cap Documented by: RENETTA Carvedilol (Coreg) 6.25 mg PO BIDMEALS [facility] Last Admin: 08/22/20 17:18 Dose: 6.25 mg Documented by: Admin: 08/22/20 07:38 Dose: 6.25 mg Documented by: Admin: 08/21/20 17:06 Dose: 6.25 mg Documented by: Admin: 08/21/20 08:36 Dose: 6.25 mg Documented by: RENETTA Furosemide (Lasix) 40 mg IVPUSH DAILY [facility] Last Admin: 08/22/20 11:16 Dose: 40 mg Documented by: RENETTA Haloperidol Lactate (Haldol) 5 mg IVPUSH Q6H PRN PRN Reason: Agitation Last Admin: 08/22/20 21:08 Dose: 5 mg Documented by: ARDEN Hydromorphone HCl (Dilaudid) 1 mg IVPUSH Q4H PRN PRN Reason: Abdominal Pain Last Admin: 08/22/20 20:28 Dose: 1 mg Documented by: Admin: 08/22/20 16:02 Dose: 1 mg Documented by: Admin: 08/22/20 09:58 Dose: 1 mg Documented by: Admin: 08/21/20 23:26 Dose: 1 mg Documented by: ARDEN Sodium Chloride (Normal Saline) 1,000 mls @ 25 mls/hr IV ASDIRECTED [facility] Last Admin: 08/22/20 06:50 Dose: 125 mls/hr Documented by: Infusion: 08/22/20 05:52 Dose: 125 mls/hr Documented by: Admin: 08/21/20 21:52 Dose: 125 mls/hr Documented by: Infusion: 08/21/20 21:52 Dose: 125 mls/hr Documented by: Admin: 08/21/20 14:10 Dose: 125 mls/hr Documented by: Infusion: 08/21/20 14:04 Dose: 125 mls/hr Documented by: Admin: 08/21/20 06:04 Dose: 125 mls/hr Documented by: JOSE Ciprofloxacin/Dextrose 400 mg/ (Premix) 200 mls @ 200 mls/hr IV Q12H [facility] Last Admin: 08/22/20 21:00 Dose: 200 mls/hr Documented by: Infusion: 08/22/20 11:40 Dose: 200 mls/hr Documented by: Admin: 08/22/20 10:40 Dose: 200 mls/hr Documented by: Infusion: 08/21/20 21:34 Dose: 200 mls/hr Documented by: Admin: 08/21/20 20:34 Dose: 200 mls/hr Documented by: Infusion: 08/21/20 09:38 Dose: 200 mls/hr Documented by: Admin: 08/21/20 08:38 Dose: 200 mls/hr Documented by: RENETTA Metronidazole 500 mg/ Premix 100 mls @ 100 mls/hr IV Q8H [facility] Last Admin: 08/22/20 17:27 Dose: 100 mls/hr Documented by: Infusion: 08/22/20 12:24 Dose: 100 mls/hr Documented by: Admin: 08/22/20 11:24 Dose: 100 mls/hr Documented by: Infusion: 08/22/20 03:05 Dose: 100 mls/hr Documented by: Admin: 08/22/20 02:05 Dose: 100 mls/hr Documented by: Infusion: 08/21/20 19:12 Dose: 100 mls/hr Documented by: Admin: 08/21/20 18:12 Dose: 100 mls/hr Documented by: Infusion: 08/21/20 11:11 Dose: 100 mls/hr Documented by: Admin: 08/21/20 10:11 Dose: 100 mls/hr Documented by: RENETTA Lorazepam (Ativan) 1 mg IVPUSH Q4H PRN PRN Reason: Anxiety Last Admin: 08/22/20 18:35 Dose: 1 mg Documented by: RENETTA Losartan Potassium (Cozaar) 100 mg PO DAILY [facility] Last Admin: 08/22/20 11:23 Dose: Not Given Documented by: Admin: 08/21/20 08:39 Dose: Not Given Documented by: RENETTA Magnesium Oxide (Magnesium Oxide) 400 mg PO BID [facility] Last Admin: 08/22/20 21:00 Dose: 400 mg Documented by: Admin: 08/22/20 11:23 Dose: 400 mg Documented by: Admin: 08/21/20 20:30 Dose: 400 mg Documented by: Admin: 08/21/20 08:36 Dose: 400 mg Documented by: RENETTA Methylprednisolone Sodium Succinate (Solu-Medrol) 40 mg IVPUSH Q8H [facility] Last Admin: 08/23/20 00:19 Dose: 40 mg Documented by: Admin: 08/22/20 16:01 Dose: 40 mg Documented by: Admin: 08/22/20 07:38 Dose: 40 mg Documented by: Admin: 08/21/20 23:31 Dose: 40 mg Documented by: Admin: 08/21/20 17:06 Dose: 40 mg Documented by: Admin: 08/21/20 08:37 Dose: 40 mg Documented by: RENETTA Mirtazapine (Remeron) 15 mg PO BEDTIME [facility] Last Admin: 08/22/20 21:00 Dose: 15 mg Documented by: Admin: 08/21/20 20:32 Dose: 15 mg Documented by: ASTER Cyclosporine ( Restasis) 1 Drop Pom 1 drop EYEBOTH BID [facility] Last Admin: 08/22/20 23:56 Dose: Not Given Documented by: Admin: 08/22/20 10:06 Dose: Not Given Documented by: Admin: 08/21/20 20:30 Dose: Not Given Documented by: Admin: 08/21/20 10:11 Dose: Not Given Documented by: RENETTA Potassium Gluconate (1 TabPom) 1 tab PO BID [facility] Last Admin: 08/22/20 23:56 Dose: Not Given Documented by: Admin: 08/22/20 10:06 Dose: Not Given Documented by: Admin: 08/21/20 20:34 Dose: Not Given Documented by: Admin: 08/21/20 10:17 Dose: Not Given Documented by: RENETTA Ondansetron HCl (Zofran Odt) 4 mg PO Q4H PRN PRN Reason: Nausea/Vomiting Last Admin: 08/21/20 15:27 Dose: 4 mg Documented by: RENETTA Pantoprazole Sodium (Protonix Iv) 40 mg IV Q12H [facility] Last Admin: 08/22/20 23:36 Dose: 40 mg Documented by: Admin: 08/22/20 11:24 Dose: 40 mg Documented by: Admin: 08/21/20 23:25 Dose: 40 mg Documented by: Admin: 08/21/20 10:17 Dose: 40 mg Documented by: Admin: 08/20/20 23:12 Dose: 40 mg Documented by: JOSE Labs: Laboratory Tests 08/20/20 08/20/20 08/20/20 Range/Units 14:39 15:51 15:51 WBC 9.8 (4.5-11.0) K/uL RBC 3.20 L (3.30-5.50) M/uL Hgb 7.9 L D (12.0-15.0) g/dL Hct 26.8 L (36.0-48.0) % MCV 84 (80-98) fL MCH 25 L (27-31) pg MCHC 30 L (32-36) % Plt Count 193 (150-400) K/uL Neut % (Auto) 79 H (36-66) % Lymph % (Auto) 12 L (24-44) % Centre % (Auto) 5 (2-6) % Eos % (Auto) 3 (2-4) % Baso % (Auto) 1 (0-1) % PT 11.8 (9.5-12.0) sec INR 1.08 (0.80-1.20) Sodium (140-148) mmol/L Potassium (3.6-5.2) mmol/L Chloride (100-108) mmol/L Carbon Dioxide (21-32) mmol/L Anion Gap (5.0-14.0) mmol/L BUN (7-18) mg/dL Creatinine (0.6-1.0) mg/dL Est Cr Clr Drug Dosing mL/min Estimated GFR (MDRD) (>60) Glucose (74-106) mg/dL Calcium (8.5-10.1) mg/dL Total Bilirubin (0.2-1.0) mg/dL AST (15-37) U/L ALT (12-78) U/L Alkaline Phosphatase (46-116) U/L C-Reactive Protein 0.99 H (0.0-0.3) mg/dL Total Protein (6.4-8.2) g/dL Albumin (3.4-5.0) g/dL Globulin (2.3-3.5) g/dL Albumin/Globulin Ratio (1.2-2.2) Amylase (25-115) U/L Lipase (73-393) U/L SARS-CoV-2 RNA (JIMMY) (NEGATIVE) Blood Type Gel Antibody Screen Crossmatch 08/20/20 08/20/20 08/20/20 Range/Units 15:51 17:09 17:10 WBC (4.5-11.0) K/uL RBC (3.30-5.50) M/uL Hgb (12.0-15.0) g/dL Hct (36.0-48.0) % MCV (80-98) fL MCH (27-31) pg MCHC (32-36) % Plt Count (150-400) K/uL Neut % (Auto) (36-66) % Lymph % (Auto) (24-44) % Centre % (Auto) (2-6) % Eos % (Auto) (2-4) % Baso % (Auto) (0-1) % PT (9.5-12.0) sec INR (0.80-1.20) Sodium 140 (140-148) mmol/L Potassium 2.6 L* (3.6-5.2) mmol/L Chloride 100 (100-108) mmol/L Carbon Dioxide 26 (21-32) mmol/L Anion Gap 16.6 H (5.0-14.0) mmol/L BUN 11 D (7-18) mg/dL Creatinine 1.2 H (0.6-1.0) mg/dL Est Cr Clr Drug Dosing 45.42 mL/min Estimated GFR (MDRD) 46 L (>60) Glucose 186 H (74-106) mg/dL Calcium 9.0 (8.5-10.1) mg/dL Total Bilirubin 2.9 H D (0.2-1.0) mg/dL AST 130 H D (15-37) U/L ALT 21 (12-78) U/L Alkaline Phosphatase 219 H (46-116) U/L C-Reactive Protein (0.0-0.3) mg/dL Total Protein 6.2 L (6.4-8.2) g/dL Albumin 2.8 L (3.4-5.0) g/dL Globulin 3.4 (2.3-3.5) g/dL Albumin/Globulin Ratio 0.8 L (1.2-2.2) Amylase 20 L D (25-115) U/L Lipase 36 L (73-393) U/L SARS-CoV-2 RNA (JIMMY) (NEGATIVE) Blood Type Gel Antibody Screen Crossmatch 08/20/20 08/20/20 Range/Units 17:31 19:59 WBC (4.5-11.0) K/uL RBC (3.30-5.50) M/uL Hgb (12.0-15.0) g/dL Hct (36.0-48.0) % MCV (80-98) fL MCH (27-31) pg MCHC (32-36) % Plt Count (150-400) K/uL Neut % (Auto) (36-66) % Lymph % (Auto) (24-44) % Centre % (Auto) (2-6) % Eos % (Auto) (2-4) % Baso % (Auto) (0-1) % PT (9.5-12.0) sec INR (0.80-1.20) Sodium (140-148) mmol/L Potassium (3.6-5.2) mmol/L Chloride (100-108) mmol/L Carbon Dioxide (21-32) mmol/L Anion Gap (5.0-14.0) mmol/L BUN (7-18) mg/dL Creatinine (0.6-1.0) mg/dL Est Cr Clr Drug Dosing mL/min Estimated GFR (MDRD) (>60) Glucose (74-106) mg/dL Calcium (8.5-10.1) mg/dL Total Bilirubin (0.2-1.0) mg/dL AST (15-37) U/L ALT (12-78) U/L Alkaline Phosphatase (46-116) U/L C-Reactive Protein (0.0-0.3) mg/dL Total Protein (6.4-8.2) g/dL Albumin (3.4-5.0) g/dL Globulin (2.3-3.5) g/dL Albumin/Globulin Ratio (1.2-2.2) Amylase (25-115) U/L Lipase (73-393) U/L SARS-CoV-2 RNA (JIMMY) Negative (NEGATIVE) Blood Type A POSITIVE Gel Antibody Screen Negative Crossmatch See Detail Meds: Medications Generic Name Dose Route Start Last Admin Trade Name Freq PRN Reason Stop Dose Admin Hydrocodone Bitart/Acetaminophen 1 - 2 tab 08/21/20 14:59 08/22/20 12:54 [place] 325-5 Mg PO 2 tab Q6H PRN Administration Pain Albuterol 2.5 mg 08/20/20 22:24 08/22/20 23:34 Proventil Neb Soln NEB 2.5 mg Q4H PRN Administration Shortness Of Breath/wheezing Amlodipine Besylate 10 mg 08/21/20 09:00 08/22/20 11:22 Norvasc PO 10 mg DAILY GILLIAN Administration Lipase/Protease/Amylase 6 cap 08/21/20 07:30 08/22/20 16:[address] 12,000 Units PO Not Given TIDAC GILLIAN Carvedilol 6.25 mg 08/21/20 08:00 08/22/20 17:18 Coreg PO 6.25 mg BIDMEALS GILLIAN Administration Furosemide 40 mg 08/22/20 11:00 08/22/20 11:16 Lasix IVPUSH 40 mg DAILY GILLIAN Administration Haloperidol Lactate 5 mg 08/22/20 20:45 08/22/20 21:08 Haldol IVPUSH 5 mg Q6H PRN Administration Agitation Hydromorphone HCl 1 mg 08/21/20 00:24 08/22/20 20:28 Dilaudid IVPUSH 1 mg Q4H PRN Administration Abdominal Pain Sodium Chloride 1,000 mls @ 25 mls/hr 08/20/20 22:24 08/22/20 06:50 Normal Saline IV 125 mls/hr ASDIRECTED GILLIAN Administration Ciprofloxacin/Dextrose 400 mg/ 200 mls @ 200 mls/hr 08/21/20 09:00 08/22/20 21:00 Premix IV 200 mls/hr Q12H GILLIAN Administration Metronidazole 500 mg/ Premix 100 mls @ 100 mls/hr 08/21/20 10:00 08/22/20 17:27 IV 100 mls/hr Q8H GILLIAN Administration Lorazepam 1 mg 08/22/20 18:14 08/22/20 18:35 Ativan IVPUSH 1 mg Q4H PRN Administration Anxiety Losartan Potassium 100 mg 08/21/20 09:00 08/22/20 11:23 Cozaar PO Not Given DAILY GILLIAN Magnesium Oxide 400 mg 08/21/20 09:00 08/22/20 21:00 Magnesium Oxide PO 400 mg BID GILLIAN Administration Methylprednisolone Sodium Succinate 40 mg 08/21/20 08:00 08/23/20 00:19 Solu-Medrol IVPUSH 40 mg Q8H GILLIAN Administration Mirtazapine 15 mg 08/21/20 21:00 08/22/20 21:00 Remeron PO 15 mg BEDTIME GILLIAN Administration Cyclosporine ( 1 drop 08/21/20 09:00 08/22/20 23:56 Restasis) 1 Drop EYEBOTH Not Given Pom BID GILLIAN Potassium Gluconate 1 tab 08/21/20 09:00 08/22/20 23:56 1 TabPom PO Not Given BID GILLIAN Ondansetron HCl 4 mg 08/21/20 00:24 08/21/20 15:27 Zofran Odt PO 4 mg Q4H PRN Administration Nausea/Vomiting Pantoprazole Sodium 40 mg 08/20/20 23:00 08/22/20 23:36 Protonix Iv IV 40 mg Q12H GILLIAN Administration Discontinued Medications Generic Name Dose Route Start Last Admin Trade Name Freq PRN Reason Stop Dose Admin Hydrocodone Bitart/Acetaminophen 1 tab 08/21/20 00:24 08/21/20 10:16 [place] 325-5 Mg PO 1 tab Q4H PRN Administration Abdominal Pain Furosemide 40 mg 08/22/20 17:03 08/22/20 17:18 Lasix IVPUSH 08/22/20 17:04 40 mg ONETIME STA Administration Furosemide 20 mg 08/23/20 00:01 08/23/20 00:19 Lasix IVPUSH 08/23/20 00:02 20 mg ONETIME ONE Administration Hydromorphone HCl 0.5 mg 08/20/20 15:47 08/20/20 16:31 Dilaudid IVPUSH 08/20/20 15:48 0.5 mg ONETIME ONE Administration Hydromorphone HCl 1 mg 08/20/20 17:37 08/20/20 17:52 Dilaudid IVPUSH 08/20/20 17:38 1 mg ONETIME ONE Administration Hydromorphone HCl 1 mg 08/20/20 21:03 08/20/20 21:23 Dilaudid IVPUSH 08/20/20 21:04 1 mg ONETIME ONE Administration Sodium Chloride 1,000 mls @ 200 mls/hr 08/20/20 15:45 08/20/20 18:17 Normal Saline IV 999 mls/hr ASDIRECTED GILLIAN Administration Sodium Chloride 80 mls @ 3.5 mls/sec 08/20/20 16:00 08/20/20 16:50 Normal Saline IV 08/20/20 16:01 3.5 mls/sec ASDIRECTED GILLIAN Administration Potassium Chloride 20 meq/ 100 mls @ 50 mls/hr 08/20/20 17:30 08/20/20 17:51 Premix IV 08/20/20 19:29 50 mls/hr ONETIME ONE Administration Sodium Chloride 1,000 mls @ 999 mls/hr 08/20/20 19:30 Normal Saline IV ASDIRECTED GILLIAN Metronidazole 500 mg/ Premix 100 mls @ 100 mls/hr 08/20/20 23:00 08/21/20 08:54 IV Not Given Q8H GILLIAN Ciprofloxacin/Dextrose 400 mg/ 200 mls @ 200 mls/hr 08/20/20 22:45 08/20/20 23:16 Premix IV 08/20/20 23:44 200 mls/hr ONETIME ONE Administration Potassium Chloride 40 meq/ 100 mls @ 25 mls/hr 08/21/20 05:41 08/21/20 05:59 Premix IV 08/21/20 09:40 25 mls/hr ONETIME ONE Administration Potassium Chloride 20 meq/ 100 mls @ 50 mls/hr 08/22/20 09:30 08/22/20 10:18 Premix IV 08/22/20 11:29 50 mls/hr ONETIME ONE Administration Iopamidol 102 ml 08/20/20 15:53 08/20/20 16:50 Isovue-300 (61%) IV 08/20/20 15:54 102 ml ONETIME ONE Administration Methylprednisolone Sodium Succinate 40 mg 08/20/20 23:00 08/20/20 23:09 Solu-Medrol IVPUSH 08/20/20 23:01 40 mg ONETIME ONE Administration Ondansetron HCl 4 mg 08/20/20 16:28 08/20/20 17:13 Zofran IVPUSH 08/20/20 16:29 4 mg ONETIME ONE Administration Sodium Chloride 10 ml 08/20/20 15:53 08/20/20 16:50 Saline Flush FLUSH 08/20/20 15:54 10 ml ONETIME ONE Administration - Re-Assessments/Exams Free Text/Narrative Re-Assessment/Exam: 08/23/20 00:46 p has a hg of 7. She has definite firmness in her abdoman. She is sob. Departure - Departure Time of Disposition: 07:00 Disposition: Admitted As Inpatient 67 Condition: Fair Clinical Impression: Anemia, Fluid overload, Abdominal tenderness - Discharge Information Sepsis Event Note (ED) - Evaluation Sepsis Screening Result: No Definite Risk
[2020-08-20] MEDS ORDERED: Iopamidol 612 MG/ML 500 ML Multipack Bottle IV ONE (15:53)
[2020-08-20] MEDS ORDERED: Sodium Chloride 0.9% 10 ML Syringe FLUSH ONE (15:53)
[2020-08-20] MEDS ORDERED: Sodium Chloride 0.9% 80 ML IV SCH (16:00)
[2020-08-20] MEDS ORDERED: Ondansetron 4 MG/2 ML SDV IVPUSH ONE (16:28)
[2020-08-20] MEDS: Sodium Chloride 0.9% 1,000 ML IV SCH ×2 (17:14→18:17)
[2020-08-20] MEDS ORDERED: Potassium Chloride 20 MEQ in Premix Bag 1 BAG IV ONE (17:30)
[2020-08-20] MEDS ORDERED: HYDROmorphone 1 MG/ML Syringe IVPUSH ONE ×2 (17:37→21:03)
--- NOTE | 2020-08-20 17:53 | CRLCT ---
INDICATION: Upper abdominal pain. History of pancreatitis COMPARISON: CT of the abdomen and pelvis without contrast from 11/19/2019 TECHNIQUE: CT examination of the abdomen and pelvis was performed with the uneventful intravenous administration of 102 cc of Isovue-300 while 3 mm thick axial sections were obtained from the lung bases through the pubic symphysis. Oral contrast was not administered. Please note that all CT scans at this facility use dose modulation, iterative reconstruction, and/or weight-based dosing when appropriate to reduce radiation dose to as low as reasonably achievable. FINDINGS: There is new prominent colitis extending from the cecum through the proximal sigmoid colon, sparing the distal sigmoid colon and rectum. There is prominent mucosal thickening, without thickening of the wall of the colon. There is no sign of any pericolonic inflammatory reaction. The findings are nonspecific. This does not appear to be on the basis of ischemia, with widely patent celiac axis, SMA, and FAUSTINO. In the abdomen, the liver is now low intensity from prominent fatty infiltration, a new finding compared to the previous study. 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 The liver is otherwise normal in appearance. There is shunting of mesenteric venous return into varices located in the right pericolonic region, extending to the right adrenal vein which is dilated. The previously seen inflammatory process involving the pancreatic head has resolved, with the low-density fullness of the pancreatic head having completely resolved. The pancreas is now diffusely atrophic, prominently decreased in size compared to the previous study. Spleen and right adrenal are normal in appearance. A 1.7 centimeter cortical cyst is now seen in the anterior interpolar left kidney. A 1.2 centimeter cyst is now seen in the lower pole of the right kidney. The kidneys are otherwise normal in appearance. Clips are again seen in the gall bladder fossa from cholecystectomy. The common bile duct remains mildly dilated at 8 millimeters, consistent with post cholecystectomy status. The abdominal aorta is normal in caliber with no sign of dilatation. There is no sign of retroperitoneal mass or adenopathy. The stomach and loops of small bowel in the abdomen are normal in appearance. In the pelvis, the appendix is nonvisualized, but there is no sign of an inflammatory process in the area of the appendix. The loops of small bowel and rectum in the pelvis are normal in appearance. Again seen is mild sigmoid diverticulosis with no sign of diverticulitis. Bilateral total hip prostheses are present in anatomic alignment. Reconstruction is made to eliminate streak artifact, showing prominence left greater than right mesenteric shunting into the internal iliac veins. There are changes of hysterectomy. The urinary bladder is normal in appearance. There is no sign of pelvic or inguinal mass or adenopathy. There is no sign of free air or free fluid in the abdomen or pelvis. The lung bases are clear. Again seen is prominent disc degenerative disease at L4-5 and L5-S1, as well as moderate disc degenerative disease throughout the rest of the lumbar spine. IMPRESSION: New prominent colitis extending from the cecum through the proximal sigmoid colon, nonspecific, but not apparently the result of ischemia. CT of the abdomen shows resolution of previously seen prominent acute pancreatitis. 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 New fatty infiltration of the liver. Again seen are changes from cholecystectomy with mild dilatation of the common bile duct. CT of the pelvis shows changes of hysterectomy. Mild sigmoid diverticulosis with no sign of diverticulitis. Please note that all CT scans at this facility use dose modulation, iterative reconstruction, and/or weight-based dosing when appropriate to reduce radiation dose to as low as reasonably achievable. Dictated by Darrel Shannon MD @ Aug 20 2020 5:34PM Signed by Dr. Darrel Shannon @ Aug 20 2020 5:52PM
--- NOTE | 2020-08-20 18:08 | CRLCR ---
Indication: SOB Technique: Chest 1 view Comparison: 08/19/2020 Findings/Impression: Cardiovascular and mediastinum: Stable cardiomediastinal silhouette. Lungs and pleural space: No new consolidation or pleural effusions. A small calcified right upper lobe granuloma. No pneumothorax seen. Bones and soft tissues: A tunneled central catheter again seen with the tip in the SVC. Stable osseous structures. Dictated by Jeremy Severino MD @ 08/20/2020 6:06:00 PM Dictated by: Jeremy Severino MD @ 08/20/2020 18:06:06 (Electronically Signed)
[2020-08-20] MEDS ORDERED: Sodium Chloride 0.9% 1,000 ML IV SCH (19:30)
[2020-08-20] MEDS ORDERED: Ciprofloxacin in D5W 400 MG in Premix Bag 1 BAG IV ONE ×2 (22:45)
[2020-08-20] MEDS ORDERED: methylPREDNISolone Sodium Succinate 40 MG/1 ML SDV IVPUSH ONE (23:00)
[2020-08-20] MEDS: Pantoprazole 40 MG Vial IV SCH (23:12)
[2020-08-20] MEDS: metroNIDAZOLE/Normal Saline 500 MG in Premix Bag 1 BAG IV SCH (23:16)
--- NOTE | 2020-08-21 00:31 | PCM.HP.2 ---
H&P History of Present Illness - General Date of Service: 08/20/20 Admit Problem/Dx: Admission Diagnosis/Problem Admission Diagnosis/Problem Colitis Source of Information: Patient, Provider, RN History Limitations: Reports: No Limitations - History of Present Illness Initial Comments - Free Text/Narative: chief complaint: abdominal pain with rectal bleeding. This is a 60 year old female present to ER via ambulance with concerns of abdominal pain, dizziness, weakness and rectal bleeding for two days. Onset of Symptoms: Reports: Gradual Symptom Onset Date: 08/19/20 Duration of Symptoms: Reports: Getting Worse Location: Reports: Abdomen Quality: Reports: Same as Previous Episode Improves with: Reports: Rest Worsens with: Reports: Eating, Movement Associated Symptoms: Reports: Loss of Appetite, Nausea/Vomiting Abdomen Pain Score (Numeric/FACES): 5 - Related Data Allergies/Adverse Reactions: Allergies Allergy/AdvReac Type Severity Reaction Status Date / Time acetaminophen Allergy Severe Hives Verified 08/20/20 14:25 [From Darvocet-N 100] codeine Allergy Severe Hives Verified 08/20/20 14:25 iodine Allergy Severe Hives Verified 08/20/20 14:25 propoxyphene napsylate Allergy Severe Hives Verified 08/20/20 14:25 [From Darvocet-N 100] Sulfa (Sulfonamide Allergy Severe Hives Verified 08/20/20 14:25 Antibiotics) sulfamethoxazole Allergy Severe Rash Verified 08/20/20 14:25 [From Bactrim] trimethoprim [From Bactrim] Allergy Severe Rash Verified 08/20/20 14:25 barley Allergy Rash Verified 08/20/20 14:25 tramadol AdvReac Severe Anxiety Verified 08/20/20 16:10 Home Medications: Home Meds Losartan [Cozaar] 100 mg PO DAILY 06/20/18 [History] Ondansetron [Zofran ODT] 4 mg PO Q6H PRN #7 tab.dis 10/10/18 [Rx] cycloSPORINE [Restasis] 1 drop EYEBOTH BID 02/03/19 [History] Omeprazole 40 mg PO DAILY 02/04/19 [History] amLODIPine [Norvasc] 10 mg PO DAILY 02/04/19 [History] Magnesium Oxide 400 mg PO BID #60 tablet 02/11/19 [Rx] Cholecalciferol (Vitamin D3) [Vitamin D3] 2,000 unit PO BID 05/14/19 [History] carvediloL [Carvedilol] 6.25 mg PO BID 05/14/19 [History] Potassium Gluconate [Potassium] 1 tab PO BID 08/31/19 [History] Acetaminophen/HYDROcodone [[place] 325-5 MG] 1 - 2 tab PO Q6H PRN 11/15/19 [History] Mirtazapine 1 tab PO BEDTIME 11/15/19 [History] Amylase/Lipase/Protease [Laquita THOMAS 24,000 Unit] 3 cap PO TIDAC 11/17/19 [History] Rivaroxaban [Xarelto] 15 mg PO BID 08/20/20 [History] Past Medical History HEENT History: Reports: Impaired Vision Cardiovascular History: Reports: Hypertension Respiratory History: Reports: Other (See Below) Other Respiratory History: ARDS in Aug 2019 Gastrointestinal History: Reports: Cholelithiasis, 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 Genitourinary History: Reports: None 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: Musculoskeletal History: Reports: None Neurological History: Reports: Concussion Psychiatric History: Reports: Addiction, Anxiety, Depression Other Psychiatric History: [place] Endocrine/Metabolic History: Reports: Diabetes, Type II Hematologic History: Reports: Blood Transfusion(s) Immunologic History: Reports: None Oncologic (Cancer) History: Reports: None - Infectious Disease History Infectious Disease History: Reports: Chicken Pox, Measles, Mumps - Past Surgical History Head Surgeries/Procedures: Reports: None HEENT Surgical History: Reports: Tonsillectomy GI Surgical History: Reports: Appendectomy, Cholecystectomy, EGD, ERCP Female Surgical History: Reports: Section Musculoskeletal Surgical History: Reports: Arthroscopic Knee, Hip Replacement, Knee Replacement, Shoulder Surgery, Other (See Below) Other Musculoskeletal Surgeries/Procedures:: "rotator cuff surgery" Dermatological Surgical History: Reports: None Social & Family History - Family History Family Medical History: Noncontributory HEENT: Reports: None Cardiac: Reports: None Respiratory: Reports: None GI: Reports: 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 : Reports: Pyelonephritis, UTI, Recurrent OBGYN: Reports: None Musculoskeletal: Reports: Arthritis Neurological: Reports: None Psychiatric: Reports: None Endocrine/Metabolic: Reports: Diabetes, type II Hematologic: Reports: None Immunologic: Reports: None Dermatologic: Reports: None Oncologic: Reports: None - Tobacco Use Tobacco Use Status *Q: Former Tobacco User Used Tobacco, but Quit: Yes Month/Year Tobacco Last Used: august 2019 - Caffeine Use Caffeine Use: Reports: Soda - Recreational Drug Use Recreational Drug Use: No - Living Situation & Occupation Living situation: Reports: with Significant Other (lives with Boyfriend in [place], [place].) Occupation: Disabled H&P Review of Systems - Review of Systems: Review Of Systems: See Below General: Reports: Chills, Malaise, Weakness, Fatigue, Decreased Appetite HEENT: Reports: Glasses, Other (dentures) Pulmonary: Reports: Shortness of Breath (with activity) Cardiovascular: Reports: Dyspnea on Exertion, Edema (bilateral lower legs) Gastrointestinal: Reports: Abdominal Pain (generalized abdominal pain), Bloody Stool (5 bloody stool on and 3 bloody stool on Sunday), Decreased Appetite, Distension, Nausea, Other (hx of ulcerative coliitis and chronic pancreatitis) Genitourinary: Reports: No Symptoms Musculoskeletal: Reports: Other (generalized chronic pain) Skin: Reports: No Symptoms Psychiatric: Reports: No Symptoms Neurological: Reports: Dizziness, Weakness Hematologic/Lymphatic: Reports: Anemia (Xralto po bid. stopped two days ago Sunday) Immunologic: Reports: No Symptoms Exam - Exam Exam: See Below - Vital Signs Vital Signs: Last Vital Signs Temp 36.1 C 08/21/20 00:11 Pulse 71 08/21/20 00:11 Resp 14 08/21/20 00:11 BP 106/49 L 08/21/20 00:11 Pulse Ox 94 L 08/21/20 00:11 Weight: 74.3 kg - Exam Quality Assessment: DVT Prophylaxis General: Alert, Oriented, Cooperative, Mild Distress, Other (appears older than stated age, fragile appearance.) HEENT: PERRLA, Conjunctiva Clear, EACs Clear, EOMI, Hearing Intact, Mucosa Moist & Imboden, Nares Patent, Posterior Pharynx Clear Neck: Supple, Trachea Midline Lungs: Clear to Auscultation, Normal Respiratory Effort Cardiovascular: Regular Rate, Regular Rhythm GI/Abdominal Exam: Distended, Tender (generalized abdominal pain), Abnormal Bowel Sounds (hypoactive) (Female) Exam: Deferred Rectal (Female) Exam: Other (noted scant amount bright blood on toilet paper in bedside commode. no clots noted) Back Exam: Normal Inspection, Full Range of Motion Extremities: Leg Pain, Pallor, Other (bilateral lower leg edema 1 + ) Peripheral Pulses: 2+: Radial (L), Radial (R) Skin: Warm, Dry, Intact Neurological: Reflexes Equal Bilateral, Strength Equal Bilateral, Normal Speech, Normal Tone Neuro Extensive - Mental Status: Alert, Oriented x3, Normal Mood/Affect, Normal Cognition, Memory Intact Neuro Extensive - Motor, Sensory, Reflexes: CN II-XII Intact, Normal Gait, Normal Reflexes Psychiatric: Alert, Normal Affect, Normal Mood - Patient Data Lab Results Last 24 hrs: Laboratory Results - last 24 hr 08/20/20 08/20/20 08/20/20 Range/Units 14:39 15:51 15:51 WBC 9.8 (4.5-11.0) K/uL RBC 3.20 L (3.30-5.50) M/uL Hgb 7.9 L D (12.0-15.0) g/dL Hct 26.8 L (36.0-48.0) % MCV 84 (80-98) fL MCH 25 L (27-31) pg MCHC 30 L (32-36) % Plt Count 193 (150-400) K/uL Neut % (Auto) 79 H (36-66) % Lymph % (Auto) 12 L (24-44) % Davis % (Auto) 5 (2-6) % Eos % (Auto) 3 (2-4) % Baso % (Auto) 1 (0-1) % PT 11.8 (9.5-12.0) sec INR 1.08 (0.80-1.20) Sodium (140-148) mmol/L Potassium (3.6-5.2) mmol/L Chloride (100-108) mmol/L Carbon Dioxide (21-32) mmol/L Anion Gap (5.0-14.0) mmol/L BUN (7-18) mg/dL Creatinine (0.6-1.0) mg/dL Est Cr Clr Drug Dosing mL/min Estimated GFR (MDRD) (>60) Glucose (74-106) mg/dL Calcium (8.5-10.1) mg/dL Total Bilirubin (0.2-1.0) mg/dL AST (15-37) U/L ALT (12-78) U/L Alkaline Phosphatase (46-116) U/L C-Reactive Protein 0.99 H (0.0-0.3) mg/dL Total Protein (6.4-8.2) g/dL Albumin (3.4-5.0) g/dL Globulin (2.3-3.5) g/dL Albumin/Globulin Ratio (1.2-2.2) Amylase (25-115) U/L Lipase (73-393) U/L SARS-CoV-2 RNA (JIMMY) (NEGATIVE) Blood Type Gel Antibody Screen Crossmatch 08/20/20 08/20/20 08/20/20 Range/Units 15:51 17:09 17:10 WBC (4.5-11.0) K/uL RBC (3.30-5.50) M/uL Hgb (12.0-15.0) g/dL Hct (36.0-48.0) % MCV (80-98) fL MCH (27-31) pg MCHC (32-36) % Plt Count (150-400) K/uL Neut % (Auto) (36-66) % Lymph % (Auto) (24-44) % Davis % (Auto) (2-6) % Eos % (Auto) (2-4) % Baso % (Auto) (0-1) % PT (9.5-12.0) sec INR (0.80-1.20) Sodium 140 (140-148) mmol/L Potassium 2.6 L* (3.6-5.2) mmol/L Chloride 100 (100-108) mmol/L Carbon Dioxide 26 (21-32) mmol/L Anion Gap 16.6 H (5.0-14.0) mmol/L BUN 11 D (7-18) mg/dL Creatinine 1.2 H (0.6-1.0) mg/dL Est Cr Clr Drug Dosing 45.42 mL/min Estimated GFR (MDRD) 46 L (>60) Glucose 186 H (74-106) mg/dL Calcium 9.0 (8.5-10.1) mg/dL Total Bilirubin 2.9 H D (0.2-1.0) mg/dL AST 130 H D (15-37) U/L ALT 21 (12-78) U/L Alkaline Phosphatase 219 H (46-116) U/L C-Reactive Protein (0.0-0.3) mg/dL Total Protein 6.2 L (6.4-8.2) g/dL Albumin 2.8 L (3.4-5.0) g/dL Globulin 3.4 (2.3-3.5) g/dL Albumin/Globulin Ratio 0.8 L (1.2-2.2) Amylase 20 L D (25-115) U/L Lipase 36 L (73-393) U/L SARS-CoV-2 RNA (JIMMY) (NEGATIVE) Blood Type Gel Antibody Screen Crossmatch 08/20/20 08/20/20 Range/Units 17:31 19:59 WBC (4.5-11.0) K/uL RBC (3.30-5.50) M/uL Hgb (12.0-15.0) g/dL Hct (36.0-48.0) % MCV (80-98) fL MCH (27-31) pg MCHC (32-36) % Plt Count (150-400) K/uL Neut % (Auto) (36-66) % Lymph % (Auto) (24-44) % Davis % (Auto) (2-6) % Eos % (Auto) (2-4) % Baso % (Auto) (0-1) % PT (9.5-12.0) sec INR (0.80-1.20) Sodium (140-148) mmol/L Potassium (3.6-5.2) mmol/L Chloride (100-108) mmol/L Carbon Dioxide (21-32) mmol/L Anion Gap (5.0-14.0) mmol/L BUN (7-18) mg/dL Creatinine (0.6-1.0) mg/dL Est Cr Clr Drug Dosing mL/min Estimated GFR (MDRD) (>60) Glucose (74-106) mg/dL Calcium (8.5-10.1) mg/dL Total Bilirubin (0.2-1.0) mg/dL AST (15-37) U/L ALT (12-78) U/L Alkaline Phosphatase (46-116) U/L C-Reactive Protein (0.0-0.3) mg/dL Total Protein (6.4-8.2) g/dL Albumin (3.4-5.0) g/dL Globulin (2.3-3.5) g/dL Albumin/Globulin Ratio (1.2-2.2) Amylase (25-115) U/L Lipase (73-393) U/L SARS-CoV-2 RNA (JIMMY) Negative (NEGATIVE) Blood Type A POSITIVE Gel Antibody Screen Negative Crossmatch See Detail Result Diagrams: 08/20/20 15:51 08/20/20 15:51 Sepsis Event Note - Evaluation Sepsis Screening Result: No Definite Risk - Focused Exam Vital Signs: Vital Signs Temp Temp Pulse Resp BP Pulse Ox 08/21/20 00:11 36.1 C 71 14 106/49 L 94 L 08/20/20 23:55 94 L 08/20/20 23:51 36.1 C 69 18 120/51 L 08/20/20 23:40 70 12 120/51 L 94 L 08/20/20 23:39 93 L 08/20/20 22:04 75 18 96/51 L 08/20/20 21:48 36.3 C 74 18 100/48 L 08/20/20 21:18 70 123/66 08/20/20 21:03 72 18 121/67 08/20/20 20:45 36.3 C 74 18 120/66 08/20/20 20:15 36.3 C 78 18 105/39 L 08/20/20 20:02 36.2 C 74 18 110/48 L 08/20/20 19:57 36.3 C 74 18 104/39 L 08/20/20 19:54 36.3 C 77 18 98/51 L 08/20/20 19:48 35.9 C L 73 18 106/47 L 08/20/20 18:50 74 89/37 L 92 L 08/20/20 18:00 77 16 106/53 L 90 L 08/20/20 16:07 74 10 L 94/55 L 93 L 08/20/20 14:16 35.6 C L 67 16 102/40 L 97 - Problem List (1) Rectal hemorrhage due to ulcerative colitis SNOMED Code(s): 3648448421537635 ICD Code: K51.911 - ULCERATIVE COLITIS, UNSPECIFIED WITH RECTAL BLEEDING Status: Acute Priority: High Current Visit: Yes (2) Abdominal pain SNOMED Code(s): 10055038 ICD Code: R10.9 - UNSPECIFIED ABDOMINAL PAIN Status: Acute Priority: High Current Visit: Yes Qualifiers: Abdominal location: generalized Qualified Code(s): R10.84 - Generalized abdominal pain (3) HTN (hypertension) SNOMED Code(s): 36813356 ICD Code: I10 - ESSENTIAL (PRIMARY) HYPERTENSION Status: Chronic Priority: High Current Visit: Yes Qualifiers: Hypertension type: unspecified Qualified Code(s): I10 - Essential (primary) hypertension (4) Chronic pancreatitis SNOMED Code(s): 495525319 ICD Code: K86.1 - OTHER CHRONIC PANCREATITIS Status: Chronic Priority: Low Current Visit: No Problem List Initiated/Reviewed/Updated: Yes Orders Last 24hrs: Active Orders 24 hr Category Date Time Status Cardiac Monitoring [RC] .As Directed Care 08/20/20 22:24 Active Intake and Output [RC] QSHIFT Care 08/20/20 22:24 Active Notify Provider Consults [RC] ASDIRECTED Care 08/20/20 22:24 Active Notify Provider Vital Signs [RC] ASDIRECTED Care 08/20/20 22:24 Active Oxygen Therapy [RC] PRN Care 08/20/20 22:24 Active Pulse Oximetry [RC] PRN Care 08/20/20 22:24 Active RT Aerosol Therapy [RC] ASDIRECTED Care 08/20/20 22:24 Active Up With Assistance [RC] ASDIRECTED Care 08/20/20 22:24 Active VTE/DVT Education [RC] Per Unit Routine Care 08/20/20 22:24 Active Vital Signs [RC] Q4H Care 08/20/20 22:24 Active Consult to Physician [CONS] Routine Cons 08/20/20 22:24 Ordered Full Liquid Diet [DIET] Diet 08/20/20 Breakfast Ordered BASIC METABOLIC PANEL,BMP [CHEM] AM Lab 08/21/20 05:11 Ordered CBC WITH AUTO DIFF [HEME] AM Lab 08/21/20 05:11 Ordered CORONAVIRUS COVID-19, JIMMY Stat Lab 08/20/20 19:51 Ordered RED BLOOD CELLS LP [BBK] Stat Lab 08/20/20 17:31 Results TYPE AND SCREEN [BBK] Stat Lab 08/20/20 17:31 Results Acetaminophen/HYDROcodone [[place] 325-5 MG] Med 08/21/20 00:24 Ordered 1 tab PO Q4H PRN Albuterol [Proventil Neb Soln] Med 08/20/20 22:24 Active 2.5 mg NEB Q4H PRN Amylase/Lipase/Protease [Laquita THOMAS 12,000 Units] Med 08/21/20 07:30 Active 6 cap PO TIDAC Ciprofloxacin in D5W [Cipro in D5W 400 MG/200 ML] 400 Med 08/21/20 09:00 Active mg Premix Bag 1 bag IV Q12H HYDROmorphone [Dilaudid] Med 08/21/20 00:24 Ordered 1 mg IVPUSH Q4H PRN Losartan [Cozaar] Med 08/21/20 09:00 Active 100 mg PO DAILY Magnesium Oxide Med 08/21/20 09:00 Active 400 mg PO BID Mirtazapine [Remeron] Med 08/21/20 21:00 Active 15 mg PO BEDTIME Ondansetron [Zofran ODT] Med 08/21/20 00:24 Ordered 4 mg PO Q4H PRN Pantoprazole [ProTONIX IV] Med 08/20/20 23:00 Active 40 mg IV Q12H Potassium Gluconate [Potassium] Med 08/21/20 09:00 Pending 1 tab PO BID Sodium Chloride 0.9% [Normal Saline] 1,000 ml Med 08/20/20 15:45 Active IV ASDIRECTED Sodium Chloride 0.9% [Normal Saline] 1,000 ml Med 08/20/20 19:30 Active IV ASDIRECTED Sodium Chloride 0.9% [Normal Saline] 1,000 ml Med 08/20/20 22:24 Active IV ASDIRECTED amLODIPine [Norvasc] Med 08/21/20 09:00 Active 10 mg PO DAILY carvediloL [Coreg] Med 08/21/20 09:00 Active 6.25 mg PO BID cycloSPORINE [Restasis] Med 08/21/20 09:00 Pending 1 drop EYEBOTH BID methylPREDNISolone Sod Succ [Solu-MEDROL] Med 08/21/20 08:00 Active 40 mg IVPUSH Q8H metroNIDAZOLE/Normal Saline [Flagyl 500 MG in NS 100 ML Med 08/20/20 23:00 Active ] 500 mg Premix Bag 1 bag IV Q8H Sequential Compression Device [OM.PC] Per Unit Routine Oth 08/20/20 22:24 Ordered Transfuse Red Blood Cells [COMM] Urgent Oth 08/20/20 19:22 Ordered Transfuse Red Blood Cells [COMM] Urgent Oth 08/20/20 19:23 Ordered Resuscitation Status Routine Resus Stat 08/20/20 21:38 Ordered Medication Orders Hydrocodone Bitart/Acetaminophen ([place] 325-5 Mg) 1 tab PO Q4H PRN PRN Reason: Abdominal Pain Albuterol (Proventil Neb Soln) 2.5 mg NEB Q4H PRN PRN Reason: Shortness Of Breath/wheezing Amlodipine Besylate (Norvasc) 10 mg PO DAILY [facility] Lipase/Protease/Amylase (Creon Dr 12,000 Units) 6 cap PO TIDAC [facility] Carvedilol (Coreg) 6.25 mg PO BID [facility] Sodium Chloride (Normal Saline) 1,000 mls @ 200 mls/hr IV ASDIRECTED [facility] Last Admin: 08/20/20 18:17 Dose: 999 mls/hr Documented by: Infusion: 08/20/20 18:15 Dose: 999 mls/hr Documented by: Admin: 08/20/20 17:14 Dose: 999 mls/hr Documented by: PREILOR Sodium Chloride (Normal Saline) 1,000 mls @ 999 mls/hr IV ASDIRECTED [facility] Sodium Chloride (Normal Saline) 1,000 mls @ 125 mls/hr IV ASDIRECTED [facility] Ciprofloxacin/Dextrose 400 mg/ (Premix) 200 mls @ 200 mls/hr IV Q12H [facility] Metronidazole 500 mg/ Premix 100 mls @ 100 mls/hr IV Q8H [facility] Last Admin: 08/20/20 23:16 Dose: 100 mls/hr Documented by: JOSE Losartan Potassium (Cozaar) 100 mg PO DAILY [facility] Magnesium Oxide (Magnesium Oxide) 400 mg PO BID [facility] Methylprednisolone Sodium Succinate (Solu-Medrol) 40 mg IVPUSH Q8H [facility] Mirtazapine (Remeron) 15 mg PO BEDTIME [facility] Non-Formulary Medication (Cyclosporine [Restasis]) 1 drop EYEBOTH BID [facility] Non-Formulary Medication (Potassium Gluconate [Potassium]) 1 tab PO BID [facility] Pantoprazole Sodium (Protonix Iv) 40 mg IV Q12H [facility] Last Admin: 08/20/20 23:12 Dose: 40 mg Documented by: JOSE Assessment/Plan Comment:: Assessment/Plan Comment:: ASSESSMENT AND PLAN - chief complaint abdominal pain with rectal bleeding. Ms. Ma reports two day history of abdominal pain, nausea, decreased appetite and rectal bleeding. she stopped her blood thinner on Sunday. reports celiac block on 08-06-2020 at [facility]. Today she was especially short of breath and fatigue with activity. She call the ambulance to transport to ER. While in ER she had labs, CT abdomen-pelvis, IV fluids and medication. due to her low hemoglobin, abdominal distension, rectal bleeding if was recommendation admission for further care and treatment. patient agrees with plan of care. Ulcerative colitis with rectal bleeding. and abdominal pain. hemoglobin 7.9 with hypotension, dizziness, fatigue, nausea. CT scan abdomen-pelvis shows prominent colitis extending from the cecum through the proximal sigmoid colon, sparing the distal sigmoid colon and rectum. see full report. In 2019 she has had 3 colonoscopy which have all been negative for a source of lower GI bleeding. -IV fluids Normal Saline 125ml/hour -blood transfusion of 2 units to correct hemoglobin 7.9, repeat hemoglobin in am. -Pain and nausea management -IV Solu-medrol 40 mg every 8 hours -IV Cipro 400mg every 12 hours -IV Flagyl 500mg every 8 hours -Surgical consultation with Dr. Marsh -Consult to Dr. Jed Walters, Internal medicine Hospitalist at [facility]. He agree with treatment plan, if she does not improve consult in am for transfer to [facility]. The hospital is near capacity at this time, but her name will be placed on list for potential admission on Sunday or Sunday. phone number [phone] -am labs CBC, BMP Hypertension -continue outpatient medications in am Chronic pancreatitis- amylase and lipase are normal range -continue outpatient medication Maintenance issues - - DVT prophylaxis -SCD - GI prophylaxis -IV PPI Protonix 40 mg every 12 hours - Nutrition -full liquid - Colon catheter -not indicated at this time CODE STATUS -full code Admission justification -this patient will be admitted for inpatient services and is medically appropriate meeting medical necessity for inpatient admission as outlined in my documentation. I reasonably expect the patient will require inpatient services that span a period time over 2 midnights. I reasonably expect this patient to be discharged or transferred within 96 hours [facility]. Disposition -I would anticipate discharge home after the hospital stay Primary care physician -Dr. Nash Hospitalist- Dr. Granado - Mortality Measure Prognosis:: Good - Mortality Measure Prognosis:: Good
[2020-08-21] MEDS: Acetaminophen/HYDROcodone 325-5 MG Tab PO PRN ×4 (01:22→21:15)
[2020-08-21] MEDS ORDERED: Potassium Chloride Riders 40 MEQ in Premix Bag 1 BAG IV ONE (05:41)
[2020-08-21] MEDS: Sodium Chloride 0.9% 1,000 ML IV SCH ×3 (06:04→21:52)
[2020-08-21] MEDS: Amylase/Lipase/Protease 12,000 Unit Cap.CR PO SCH ×3 (08:21→17:06)
[2020-08-21] MEDS: Carvedilol 3.125 MG Tab PO SCH ×2 (08:36→17:06)
[2020-08-21] MEDS: Magnesium Oxide 400 MG Tab PO SCH ×2 (08:36→20:30)
[2020-08-21] MEDS: amLODIPine 5 MG Tab PO SCH (08:36)
[2020-08-21] MEDS: methylPREDNISolone Sodium Succinate 40 MG/1 ML SDV IVPUSH SCH ×3 (08:37→23:31)
[2020-08-21] MEDS: Ciprofloxacin in D5W 400 MG in Premix Bag 1 BAG IV SCH ×4 (08:38→20:34)
[2020-08-21] MEDS: Losartan 50 MG Tab PO SCH (08:39)
[2020-08-21] MEDS: metroNIDAZOLE/Normal Saline 500 MG in Premix Bag 1 BAG IV SCH ×3 (08:54→18:12)
[2020-08-21] MEDS: CYCLOSPORINE EYEBOTH SCH ×2 (10:11→20:30)
[2020-08-21] MEDS: POTASSIUM GLUCONATE PO SCH ×2 (10:17→20:34)
[2020-08-21] MEDS: Pantoprazole 40 MG Vial IV SCH ×2 (10:17→23:25)
--- NOTE | 2020-08-21 11:54 | PCM.PN ---
- General Info Date of Service: 08/21/20 Admission Dx/Problem (Free Text): 1. Chronic pancreatitis - stable 2. Generalized abdominal pain 3. Colitis (likely IBD, suspect UC) Subjective Update: Note some improvement overall this AM Asking for pain meds though. Notes reduced appetite Patient is currently on IV dilaudid q 4 hours. Functional Status: Reports: Pain Controlled, Tolerating Diet - Review of Systems General: Reports: No Symptoms HEENT: Reports: No Symptoms Pulmonary: Reports: No Symptoms Cardiovascular: Reports: No Symptoms Gastrointestinal: Reports: Abdominal Pain, Decreased Appetite Genitourinary: Reports: No Symptoms Musculoskeletal: Reports: No Symptoms Skin: Reports: No Symptoms - Patient Data Vitals - Most Recent: Last Vital Signs Temp 97.6 F 08/21/20 01:20 Pulse 70 08/21/20 08:36 Resp 10 L 08/21/20 03:00 BP 127/60 08/21/20 08:36 Pulse Ox 94 L 08/21/20 03:00 Weight - Most Recent: 163 lb 12.855 oz I&O - Last 24 Hours: Intake & Output 08/20/20 08/21/20 08/21/20 22:59 06:59 14:59 Intake Total 390 1755 Balance 390 1755 Lab Results Last 24 Hours: Laboratory Results - last 24 hr 08/20/20 08/20/20 08/20/20 Range/Units 14:39 15:51 15:51 WBC 9.8 (4.5-11.0) K/uL RBC 3.20 L (3.30-5.50) M/uL Hgb 7.9 L D (12.0-15.0) g/dL Hct 26.8 L (36.0-48.0) % MCV 84 (80-98) fL MCH 25 L (27-31) pg MCHC 30 L (32-36) % Plt Count 193 (150-400) K/uL Neut % (Auto) 79 H (36-66) % Lymph % (Auto) 12 L (24-44) % [place] % (Auto) 5 (2-6) % Eos % (Auto) 3 (2-4) % Baso % (Auto) 1 (0-1) % PT 11.8 (9.5-12.0) sec INR 1.08 (0.80-1.20) Sodium (140-148) mmol/L Potassium (3.6-5.2) mmol/L Chloride (100-108) mmol/L Carbon Dioxide (21-32) mmol/L Anion Gap (5.0-14.0) mmol/L BUN (7-18) mg/dL Creatinine (0.6-1.0) mg/dL Est Cr Clr Drug Dosing mL/min Estimated GFR (MDRD) (>60) Glucose (74-106) mg/dL Calcium (8.5-10.1) mg/dL Total Bilirubin (0.2-1.0) mg/dL AST (15-37) U/L ALT (12-78) U/L Alkaline Phosphatase (46-116) U/L C-Reactive Protein 0.99 H (0.0-0.3) mg/dL Total Protein (6.4-8.2) g/dL Albumin (3.4-5.0) g/dL Globulin (2.3-3.5) g/dL Albumin/Globulin Ratio (1.2-2.2) Amylase (25-115) U/L Lipase (73-393) U/L SARS-CoV-2 RNA (JIMMY) (NEGATIVE) Blood Type Gel Antibody Screen Crossmatch 08/20/20 08/20/20 08/20/20 Range/Units 15:51 17:09 17:10 WBC (4.5-11.0) K/uL RBC (3.30-5.50) M/uL Hgb (12.0-15.0) g/dL Hct (36.0-48.0) % MCV (80-98) fL MCH (27-31) pg MCHC (32-36) % Plt Count (150-400) K/uL Neut % (Auto) (36-66) % Lymph % (Auto) (24-44) % [place] % (Auto) (2-6) % Eos % (Auto) (2-4) % Baso % (Auto) (0-1) % PT (9.5-12.0) sec INR (0.80-1.20) Sodium 140 (140-148) mmol/L Potassium 2.6 L* (3.6-5.2) mmol/L Chloride 100 (100-108) mmol/L Carbon Dioxide 26 (21-32) mmol/L Anion Gap 16.6 H (5.0-14.0) mmol/L BUN 11 D (7-18) mg/dL Creatinine 1.2 H (0.6-1.0) mg/dL Est Cr Clr Drug Dosing 45.42 mL/min Estimated GFR (MDRD) 46 L (>60) Glucose 186 H (74-106) mg/dL Calcium 9.0 (8.5-10.1) mg/dL Total Bilirubin 2.9 H D (0.2-1.0) mg/dL AST 130 H D (15-37) U/L ALT 21 (12-78) U/L Alkaline Phosphatase 219 H (46-116) U/L C-Reactive Protein (0.0-0.3) mg/dL Total Protein 6.2 L (6.4-8.2) g/dL Albumin 2.8 L (3.4-5.0) g/dL Globulin 3.4 (2.3-3.5) g/dL Albumin/Globulin Ratio 0.8 L (1.2-2.2) Amylase 20 L D (25-115) U/L Lipase 36 L (73-393) U/L SARS-CoV-2 RNA (JIMMY) (NEGATIVE) Blood Type Gel Antibody Screen Crossmatch 08/20/20 08/20/20 08/21/20 Range/Units 17:31 19:59 04:30 WBC 10.9 (4.5-11.0) K/uL RBC 3.79 (3.30-5.50) M/uL Hgb 9.8 L (12.0-15.0) g/dL Hct 31.7 L (36.0-48.0) % MCV 84 (80-98) fL MCH 26 L (27-31) pg MCHC 31 L (32-36) % Plt Count 153 (150-400) K/uL Neut % (Auto) 91 H (36-66) % Lymph % (Auto) 7 L (24-44) % [place] % (Auto) 2 (2-6) % Eos % (Auto) 0 L (2-4) % Baso % (Auto) 0 (0-1) % PT (9.5-12.0) sec INR (0.80-1.20) Sodium (140-148) mmol/L Potassium (3.6-5.2) mmol/L Chloride (100-108) mmol/L Carbon Dioxide (21-32) mmol/L Anion Gap (5.0-14.0) mmol/L BUN (7-18) mg/dL Creatinine (0.6-1.0) mg/dL Est Cr Clr Drug Dosing mL/min Estimated GFR (MDRD) (>60) Glucose (74-106) mg/dL Calcium (8.5-10.1) mg/dL Total Bilirubin (0.2-1.0) mg/dL AST (15-37) U/L ALT (12-78) U/L Alkaline Phosphatase (46-116) U/L C-Reactive Protein (0.0-0.3) mg/dL Total Protein (6.4-8.2) g/dL Albumin (3.4-5.0) g/dL Globulin (2.3-3.5) g/dL Albumin/Globulin Ratio (1.2-2.2) Amylase (25-115) U/L Lipase (73-393) U/L SARS-CoV-2 RNA (JIMMY) Negative (NEGATIVE) Blood Type A POSITIVE Gel Antibody Screen Negative Crossmatch See Detail 08/21/20 Range/Units 04:30 WBC (4.5-11.0) K/uL RBC (3.30-5.50) M/uL Hgb (12.0-15.0) g/dL Hct (36.0-48.0) % MCV (80-98) fL MCH (27-31) pg MCHC (32-36) % Plt Count (150-400) K/uL Neut % (Auto) (36-66) % Lymph % (Auto) (24-44) % [place] % (Auto) (2-6) % Eos % (Auto) (2-4) % Baso % (Auto) (0-1) % PT (9.5-12.0) sec INR (0.80-1.20) Sodium 139 L (140-148) mmol/L Potassium 2.8 L* (3.6-5.2) mmol/L Chloride 103 (100-108) mmol/L Carbon Dioxide 23 (21-32) mmol/L Anion Gap 15.8 H (5.0-14.0) mmol/L BUN 8 (7-18) mg/dL Creatinine 1.1 H (0.6-1.0) mg/dL Est Cr Clr Drug Dosing 49.55 mL/min Estimated GFR (MDRD) 51 L (>60) Glucose 177 H (74-106) mg/dL Calcium 8.2 L (8.5-10.1) mg/dL Total Bilirubin (0.2-1.0) mg/dL AST (15-37) U/L ALT (12-78) U/L Alkaline Phosphatase (46-116) U/L C-Reactive Protein (0.0-0.3) mg/dL Total Protein (6.4-8.2) g/dL Albumin (3.4-5.0) g/dL Globulin (2.3-3.5) g/dL Albumin/Globulin Ratio (1.2-2.2) Amylase (25-115) U/L Lipase (73-393) U/L SARS-CoV-2 RNA (JIMMY) (NEGATIVE) Blood Type Gel Antibody Screen Crossmatch Med Orders - Current: Current Medications Hydrocodone Bitart/Acetaminophen ([place] 325-5 Mg) 1 tab PO Q4H PRN PRN Reason: Abdominal Pain Last Admin: 08/21/20 10:16 Dose: 1 tab Documented by: Albuterol (Proventil Neb Soln) 2.5 mg NEB Q4H PRN PRN Reason: Shortness Of Breath/wheezing Amlodipine Besylate (Norvasc) 10 mg PO DAILY REPLACED BY [facility] Last Admin: 08/21/20 08:36 Dose: 10 mg Documented by: Lipase/Protease/Amylase (Laquita Hilario 12,000 Units) 6 cap PO TIDAC REPLACED BY [facility] Last Admin: 08/21/20 08:21 Dose: 6 cap Documented by: Carvedilol (Coreg) 6.25 mg PO BIDMEALS REPLACED BY [facility] Last Admin: 08/21/20 08:36 Dose: 6.25 mg Documented by: Hydromorphone HCl (Dilaudid) 1 mg IVPUSH Q4H PRN PRN Reason: Abdominal Pain Sodium Chloride (Normal Saline) 1,000 mls @ 200 mls/hr IV ASDIRECTED REPLACED BY [facility] Last Admin: 08/20/20 18:17 Dose: 999 mls/hr Documented by: Sodium Chloride (Normal Saline) 1,000 mls @ 999 mls/hr IV ASDIRECTED REPLACED BY [facility] Sodium Chloride (Normal Saline) 1,000 mls @ 125 mls/hr IV ASDIRECTED REPLACED BY [facility] Last Admin: 08/21/20 06:04 Dose: 125 mls/hr Documented by: Ciprofloxacin/Dextrose 400 mg/ (Premix) 200 mls @ 200 mls/hr IV Q12H REPLACED BY [facility] Last Admin: 08/21/20 08:38 Dose: 200 mls/hr Documented by: Metronidazole 500 mg/ Premix 100 mls @ 100 mls/hr IV Q8H REPLACED BY [facility] Last Admin: 08/21/20 10:11 Dose: 100 mls/hr Documented by: Losartan Potassium (Cozaar) 100 mg PO DAILY REPLACED BY [facility] Last Admin: 08/21/20 08:39 Dose: Not Given Documented by: Magnesium Oxide (Magnesium Oxide) 400 mg PO BID REPLACED BY [facility] Last Admin: 08/21/20 08:36 Dose: 400 mg Documented by: Methylprednisolone Sodium Succinate (Solu-Medrol) 40 mg IVPUSH Q8H REPLACED BY [facility] Last Admin: 08/21/20 08:37 Dose: 40 mg Documented by: Mirtazapine (Remeron) 15 mg PO BEDTIME REPLACED BY [facility] Cyclosporine ( Restasis) 1 Drop Pom 1 drop EYEBOTH BID REPLACED BY [facility] Last Admin: 08/21/20 10:11 Dose: Not Given Documented by: Potassium Gluconate (1 TabPom) 1 tab PO BID REPLACED BY [facility] Last Admin: 08/21/20 10:17 Dose: Not Given Documented by: Ondansetron HCl (Zofran Odt) 4 mg PO Q4H PRN PRN Reason: Nausea/Vomiting Pantoprazole Sodium (Protonix Iv) 40 mg IV Q12H REPLACED BY [facility] Last Admin: 08/21/20 10:17 Dose: 40 mg Documented by: Discontinued Medications Hydromorphone HCl (Dilaudid) 0.5 mg IVPUSH ONETIME ONE Stop: 08/20/20 15:48 Last Admin: 08/20/20 16:31 Dose: 0.5 mg Documented by: Hydromorphone HCl (Dilaudid) 1 mg IVPUSH ONETIME ONE Stop: 08/20/20 17:38 Last Admin: 08/20/20 17:52 Dose: 1 mg Documented by: Hydromorphone HCl (Dilaudid) 1 mg IVPUSH ONETIME ONE Stop: 08/20/20 21:04 Last Admin: 08/20/20 21:23 Dose: 1 mg Documented by: Sodium Chloride (Normal Saline) 80 mls @ 3.5 mls/sec IV ASDIRECTED REPLACED BY [facility] Stop: 08/20/20 16:01 Last Admin: 08/20/20 16:50 Dose: 3.5 mls/sec Documented by: Potassium Chloride 20 meq/ (Premix) 100 mls @ 50 mls/hr IV ONETIME ONE Stop: 08/20/20 19:29 Last Admin: 08/20/20 17:51 Dose: 50 mls/hr Documented by: Metronidazole 500 mg/ Premix 100 mls @ 100 mls/hr IV Q8H REPLACED BY [facility] Last Admin: 08/21/20 08:54 Dose: Not Given Documented by: Ciprofloxacin/Dextrose 400 mg/ (Premix) 200 mls @ 200 mls/hr IV ONETIME ONE Stop: 08/20/20 23:44 Last Admin: 08/20/20 23:16 Dose: 200 mls/hr Documented by: Potassium Chloride 40 meq/ (Premix) 100 mls @ 25 mls/hr IV ONETIME ONE Stop: 08/21/20 09:40 Last Admin: 08/21/20 05:59 Dose: 25 mls/hr Documented by: Iopamidol (Isovue-300 (61%)) 102 ml IV ONETIME ONE Stop: 08/20/20 15:54 Last Admin: 08/20/20 16:50 Dose: 102 ml Documented by: Methylprednisolone Sodium Succinate (Solu-Medrol) 40 mg IVPUSH ONETIME ONE Stop: 08/20/20 23:01 Last Admin: 08/20/20 23:09 Dose: 40 mg Documented by: Ondansetron HCl (Zofran) 4 mg IVPUSH ONETIME ONE Stop: 08/20/20 16:29 Last Admin: 08/20/20 17:13 Dose: 4 mg Documented by: Sodium Chloride (Saline Flush) 10 ml FLUSH ONETIME ONE Stop: 08/20/20 15:54 Last Admin: 08/20/20 16:50 Dose: 10 ml Documented by: - Exam Quality Assessment: DVT Prophylaxis. No: Supplemental Oxygen General: Alert, Oriented, Cooperative, Mild Distress Lungs: Clear to Auscultation, Normal Respiratory Effort Cardiovascular: Regular Rate, Regular Rhythm GI/Abdominal Exam: Normal Bowel Sounds, No Distention, Guarding, Rebound, Tender Sepsis Event Note - Evaluation Sepsis Screening Result: No Definite Risk - Focused Exam Vital Signs: Vital Signs Temp Pulse Pulse Resp BP BP Pulse Ox 08/21/20 08:36 70 127/60 08/21/20 03:00 71 10 L 103/77 94 L 08/21/20 01:47 92 L 08/21/20 01:20 97.6 F 73 18 117/69 90 L 08/21/20 00:56 97.0 F 69 18 112/70 91 L 08/21/20 00:41 97.5 F 69 16 121/77 91 L 08/21/20 00:26 97.5 F 73 15 113/52 L 91 L 08/21/20 00:11 97.0 F 71 14 106/49 L 94 L 08/20/20 23:55 94 L 08/20/20 23:51 97.0 F 69 18 120/51 L - Problem List Review Problem List Initiated/Reviewed/Updated: Yes - Plan Plan:: Assessment/Plan Comment:: ASSESSMENT AND PLAN - chief complaint abdominal pain with rectal bleeding. Ms. Ma reports two day history of abdominal pain, nausea, decreased appetite and rectal bleeding. she stopped her blood thinner on Sunday. reports celiac block on 08-06-2020 at [facility]. Today she was especially short of breath and fatigue with activity. She call the ambulance to transport to ER. While in ER she had labs, CT abdomen-pelvis, IV fluids and medication. due to her low hemoglobin, abdominal distension, rectal bleeding if was recommendation admission for further care and treatment. patient agrees with plan of care. Ulcerative colitis with rectal bleeding. and abdominal pain. hemoglobin 7.9 with hypotension, dizziness, fatigue, nausea. CT scan abdomen-pelvis shows prominent colitis extending from the cecum through the proximal sigmoid colon, sparing the distal sigmoid colon and rectum. see full report. In 2019 she has had 3 colonoscopy which have all been negative for a source of lower GI bleeding. UPDATE HD#2 Patient's symptoms and imaging are most c/w UC. The patient does indicate that she is perhaps doing somewhat better this AM. She was started on cipro/flagyl + solumedrol 40 mg IV q 8 hours. Thus far this seems to be helping. The patient's Hgb is stabilized at 9.7 this AM. No other concerns are noted currently - though she notes poor appetite and is asking for additional pain medication. I do not see the need to transfer to the [facility] (even if beds were available - which presently they are not) -IV fluids Normal Saline 125ml/hour -Pain and nausea management -IV Solu-medrol 40 mg every 8 hours -IV Cipro 400mg every 12 hours -IV Flagyl 500mg every 8 hours -Surgical consultation with Dr. Marsh -Consult to Dr. Jed Walters, Internal medicine Hospitalist at [facility]. He agree with treatment plan, if she does not improve consult in am for transfer to [facility]. The hospital is near capacity at this time, but her name will be placed on list for potential adm ission on Sunday or Sunday. phone number [phone] - Pain control as per orders to follow - On IV dilaudid at present and I think this is sufficient to control her pain at present -am labs CBC, BMP Hypertension -continue outpatient medications in am Chronic pancreatitis- amylase and lipase are normal range -continue outpatient medication Maintenance issues - - DVT prophylaxis -SCD - GI prophylaxis -IV PPI Protonix 40 mg every 12 hours - Nutrition -full liquid - Colon catheter -not indicated at this time CODE STATUS -full code Admission justification -this patient will be admitted for inpatient services and is medically appropriate meeting medical necessity for inpatient admission as outlined in my documentation. I reasonably expect the patient will require inpatient services that span a period time over 2 midnights. I reasonably expect this patient to be discharged or transferred within 96 hours [facility]. Disposition -I would anticipate discharge home after the hospital stay Primary care physician -Dr. Nash Hospitalist- Dr. Granado - Mortality Measure Prognosis:: Good
[2020-08-21] MEDS: Ondansetron 4 MG Tab.DIS PO PRN (15:27)
[2020-08-21] MEDS: Mirtazapine 15 MG Tab PO SCH (20:32)
[2020-08-21] MEDS: HYDROmorphone 1 MG/ML Syringe IVPUSH PRN (23:26)
[2020-08-22] MEDS: metroNIDAZOLE/Normal Saline 500 MG in Premix Bag 1 BAG IV SCH ×3 (02:05→17:27)
[2020-08-22] MEDS: Sodium Chloride 0.9% 1,000 ML IV SCH (06:50)
[2020-08-22] MEDS: Acetaminophen/HYDROcodone 325-5 MG Tab PO PRN ×2 (07:30→12:54)
[2020-08-22] MEDS: Amylase/Lipase/Protease 12,000 Unit Cap.CR PO SCH ×3 (07:35→16:28)
[2020-08-22] MEDS: Carvedilol 3.125 MG Tab PO SCH ×2 (07:38→17:18)
[2020-08-22] MEDS: methylPREDNISolone Sodium Succinate 40 MG/1 ML SDV IVPUSH SCH ×2 (07:38→16:01)
[2020-08-22] MEDS ORDERED: Potassium Chloride 20 MEQ in Premix Bag 1 BAG IV ONE (09:30)
[2020-08-22] MEDS: HYDROmorphone 1 MG/ML Syringe IVPUSH PRN ×3 (09:58→20:28)
[2020-08-22] MEDS: CYCLOSPORINE EYEBOTH SCH ×2 (10:06→23:56)
[2020-08-22] MEDS: POTASSIUM GLUCONATE PO SCH ×2 (10:06→23:56)
[2020-08-22] MEDS: Ciprofloxacin in D5W 400 MG in Premix Bag 1 BAG IV SCH ×4 (10:40→21:00)
[2020-08-22] MEDS: Furosemide 40 MG/4 ML VIAL IVPUSH SCH (11:16)
[2020-08-22] MEDS: amLODIPine 5 MG Tab PO SCH (11:22)
[2020-08-22] MEDS: Magnesium Oxide 400 MG Tab PO SCH ×2 (11:23→21:00)
[2020-08-22] MEDS: Losartan 50 MG Tab PO SCH (11:23)
[2020-08-22] MEDS: Pantoprazole 40 MG Vial IV SCH ×2 (11:24→23:36)
--- NOTE | 2020-08-22 12:51 | PCM.PN ---
- General Info Date of Service: 08/22/20 Admission Dx/Problem (Free Text): 1. Ulcerative colitis 2. Abdominal pain Subjective Update: Patient noting continued abdominal pain but thinks that this is better. Wanting to eat Is starting to try to self-direct her care and is starting to express some conflicting anxieties around discharge planning. Is tolerating atbx, corticosteroids generally well - though she mentions feeling odd with the corticosteroid. She is starting to seem a little more dyspneic and now has an increased oxygen requirement. Given 40 mg IV lasix Functional Status: Reports: Pain Controlled, Tolerating Diet, Ambulating - Review of Systems General: Reports: No Symptoms HEENT: Reports: No Symptoms Pulmonary: Reports: Shortness of Breath Cardiovascular: Reports: No Symptoms Gastrointestinal: Reports: Abdominal Pain - Patient Data Vitals - Most Recent: Last Vital Signs Temp 97.1 F 08/22/20 07:00 Pulse 75 08/22/20 07:38 Resp 18 08/22/20 07:00 BP 111/72 08/22/20 11:22 Pulse Ox 94 L 08/22/20 07:00 Weight - Most Recent: 163 lb 12.855 oz I&O - Last 24 Hours: Intake & Output 08/21/20 08/22/20 08/22/20 22:59 06:59 14:59 Intake Total 400 2717 Output Total 1 Balance 399 2717 Lab Results Last 24 Hours: Laboratory Results - last 24 hr 08/21/20 08/22/20 08/22/20 Range/Units 13:06 04:45 04:45 WBC 11.2 H (4.5-11.0) K/uL RBC 3.54 (3.30-5.50) M/uL Hgb 9.0 L (12.0-15.0) g/dL Hct 29.9 L (36.0-48.0) % MCV 85 (80-98) fL MCH 25 L (27-31) pg MCHC 30 L (32-36) % Plt Count 167 (150-400) K/uL Sodium 138 L (140-148) mmol/L Potassium 3.2 L 3.1 L (3.6-5.2) mmol/L Chloride 104 (100-108) mmol/L Carbon Dioxide 20 L (21-32) mmol/L Anion Gap 17.1 H (5.0-14.0) mmol/L BUN 7 (7-18) mg/dL Creatinine 1.1 H (0.6-1.0) mg/dL Est Cr Clr Drug Dosing 49.55 mL/min Estimated GFR (MDRD) 51 L (>60) Glucose 182 H (74-106) mg/dL Calcium 7.9 L (8.5-10.1) mg/dL Total Bilirubin 1.9 H (0.2-1.0) mg/dL AST 72 H (15-37) U/L ALT 17 (12-78) U/L Alkaline Phosphatase 174 H (46-116) U/L Total Protein 5.5 L (6.4-8.2) g/dL Albumin 2.6 L (3.4-5.0) g/dL Globulin 2.9 (2.3-3.5) g/dL Albumin/Globulin Ratio 0.9 L (1.2-2.2) Med Orders - Current: Current Medications Hydrocodone Bitart/Acetaminophen (Campbell 325-5 Mg) 1 - 2 tab PO Q6H PRN PRN Reason: Pain Last Admin: 08/22/20 07:30 Dose: 2 tab Documented by: Albuterol (Proventil Neb Soln) 2.5 mg NEB Q4H PRN PRN Reason: Shortness Of Breath/wheezing Amlodipine Besylate (Norvasc) 10 mg PO DAILY [facility] Last Admin: 08/22/20 11:22 Dose: 10 mg Documented by: Lipase/Protease/Amylase (Laquita Hilario 12,000 Units) 6 cap PO TIDAC [facility] Last Admin: 08/22/20 11:15 Dose: 2 cap Documented by: Carvedilol (Coreg) 6.25 mg PO BIDMEALS [facility] Last Admin: 08/22/20 07:38 Dose: 6.25 mg Documented by: Furosemide (Lasix) 40 mg IVPUSH DAILY [facility] Last Admin: 08/22/20 11:16 Dose: 40 mg Documented by: Hydromorphone HCl (Dilaudid) 1 mg IVPUSH Q4H PRN PRN Reason: Abdominal Pain Last Admin: 08/22/20 09:58 Dose: 1 mg Documented by: Sodium Chloride (Normal Saline) 1,000 mls @ 200 mls/hr IV ASDIRECTED [facility] Last Admin: 08/20/20 18:17 Dose: 999 mls/hr Documented by: Sodium Chloride (Normal Saline) 1,000 mls @ 999 mls/hr IV ASDIRECTED [facility] Sodium Chloride (Normal Saline) 1,000 mls @ 125 mls/hr IV ASDIRECTED [facility] Last Admin: 08/22/20 06:50 Dose: 125 mls/hr Documented by: Ciprofloxacin/Dextrose 400 mg/ (Premix) 200 mls @ 200 mls/hr IV Q12H [facility] Last Admin: 08/22/20 10:40 Dose: 200 mls/hr Documented by: Metronidazole 500 mg/ Premix 100 mls @ 100 mls/hr IV Q8H [facility] Last Admin: 08/22/20 11:24 Dose: 100 mls/hr Documented by: Losartan Potassium (Cozaar) 100 mg PO DAILY [facility] Last Admin: 08/22/20 11:23 Dose: Not Given Documented by: Magnesium Oxide (Magnesium Oxide) 400 mg PO BID [facility] Last Admin: 08/22/20 11:23 Dose: 400 mg Documented by: Methylprednisolone Sodium Succinate (Solu-Medrol) 40 mg IVPUSH Q8H [facility] Last Admin: 08/22/20 07:38 Dose: 40 mg Documented by: Mirtazapine (Remeron) 15 mg PO BEDTIME [facility] Last Admin: 08/21/20 20:32 Dose: 15 mg Documented by: Cyclosporine ( Restasis) 1 Drop Pom 1 drop EYEBOTH BID [facility] Last Admin: 08/22/20 10:06 Dose: Not Given Documented by: Potassium Gluconate (1 TabPom) 1 tab PO BID [facility] Last Admin: 08/22/20 10:06 Dose: Not Given Documented by: Ondansetron HCl (Zofran Odt) 4 mg PO Q4H PRN PRN Reason: Nausea/Vomiting Last Admin: 08/21/20 15:27 Dose: 4 mg Documented by: Pantoprazole Sodium (Protonix Iv) 40 mg IV Q12H [facility] Last Admin: 08/22/20 11:24 Dose: 40 mg Documented by: Discontinued Medications Hydrocodone Bitart/Acetaminophen (Campbell 325-5 Mg) 1 tab PO Q4H PRN PRN Reason: Abdominal Pain Last Admin: 08/21/20 10:16 Dose: 1 tab Documented by: Hydromorphone HCl (Dilaudid) 0.5 mg IVPUSH ONETIME ONE Stop: 08/20/20 15:48 Last Admin: 08/20/20 16:31 Dose: 0.5 mg Documented by: Hydromorphone HCl (Dilaudid) 1 mg IVPUSH ONETIME ONE Stop: 08/20/20 17:38 Last Admin: 08/20/20 17:52 Dose: 1 mg Documented by: Hydromorphone HCl (Dilaudid) 1 mg IVPUSH ONETIME ONE Stop: 08/20/20 21:04 Last Admin: 08/20/20 21:23 Dose: 1 mg Documented by: Sodium Chloride (Normal Saline) 80 mls @ 3.5 mls/sec IV ASDIRECTED [facility] Stop: 08/20/20 16:01 Last Admin: 08/20/20 16:50 Dose: 3.5 mls/sec Documented by: Potassium Chloride 20 meq/ (Premix) 100 mls @ 50 mls/hr IV ONETIME ONE Stop: 08/20/20 19:29 Last Admin: 08/20/20 17:51 Dose: 50 mls/hr Documented by: Metronidazole 500 mg/ Premix 100 mls @ 100 mls/hr IV Q8H [facility] Last Admin: 08/21/20 08:54 Dose: Not Given Documented by: Ciprofloxacin/Dextrose 400 mg/ (Premix) 200 mls @ 200 mls/hr IV ONETIME ONE Stop: 08/20/20 23:44 Last Admin: 08/20/20 23:16 Dose: 200 mls/hr Documented by: Potassium Chloride 40 meq/ (Premix) 100 mls @ 25 mls/hr IV ONETIME ONE Stop: 08/21/20 09:40 Last Admin: 08/21/20 05:59 Dose: 25 mls/hr Documented by: Potassium Chloride 20 meq/ (Premix) 100 mls @ 50 mls/hr IV ONETIME ONE Stop: 08/22/20 11:29 Last Admin: 08/22/20 10:18 Dose: 50 mls/hr Documented by: Iopamidol (Isovue-300 (61%)) 102 ml IV ONETIME ONE Stop: 08/20/20 15:54 Last Admin: 08/20/20 16:50 Dose: 102 ml Documented by: Methylprednisolone Sodium Succinate (Solu-Medrol) 40 mg IVPUSH ONETIME ONE Stop: 08/20/20 23:01 Last Admin: 08/20/20 23:09 Dose: 40 mg Documented by: Ondansetron HCl (Zofran) 4 mg IVPUSH ONETIME ONE Stop: 08/20/20 16:29 Last Admin: 08/20/20 17:13 Dose: 4 mg Documented by: Sodium Chloride (Saline Flush) 10 ml FLUSH ONETIME ONE Stop: 08/20/20 15:54 Last Admin: 08/20/20 16:50 Dose: 10 ml Documented by: - Exam Quality Assessment: Supplemental Oxygen, DVT Prophylaxis General: Alert, Oriented, Cooperative, Mild Distress Lungs: Clear to Auscultation, Normal Respiratory Effort Cardiovascular: Regular Rate, Regular Rhythm, No Murmurs GI/Abdominal Exam: Normal Bowel Sounds, Soft, No Distention, No Abnormal Bruit, No Mass, Guarding, Tender Sepsis Event Note - Evaluation Sepsis Screening Result: No Definite Risk - Focused Exam Vital Signs: Vital Signs Temp Pulse Resp BP BP Pulse Ox 08/22/20 11:22 111/72 08/22/20 07:38 75 127/67 08/22/20 07:00 97.1 F 18 127/67 94 L 08/22/20 03:00 97.8 F 16 107/59 L 95 08/22/20 01:00 91 L - Problem List Review Problem List Initiated/Reviewed/Updated: Yes - My Orders Last 24 Hours: My Active Orders 08/21/20 14:59 Acetaminophen/HYDROcodone [Campbell 325-5 MG] 1 - 2 tab PO Q6H PRN 08/22/20 Breakfast Clear Liquid Diet [DIET] 08/22/20 11:00 Furosemide [Lasix] 40 mg IVPUSH DAILY 08/22/20 12:17 CORONAVIRUS COVID-19 JIMMY [MOLEC] Stat - Plan Plan:: Assessment/Plan Comment:: ASSESSMENT AND PLAN - chief complaint abdominal pain with rectal bleeding. Ms. Ma reports two day history of abdominal pain, nausea, decreased appetite and rectal bleeding. she stopped her blood thinner on Sunday. reports celiac block on 08-06-2020 at [facility]. Today she was especially short of breath and fatigue with activity. She call the ambulance to transport to ER. While in ER she had labs, CT abdomen-pelvis, IV fluids and medication. due to her low hemoglobin, abdominal distension, rectal bleeding if was recommendation admission for further care and treatment. patient agrees with plan of care. Ulcerative colitis with rectal bleeding. and abdominal pain. hemoglobin 7.9 with hypotension, dizziness, fatigue, nausea. CT scan abdomen-pelvis shows prominent colitis extending from the cecum through the proximal sigmoid colon, sparing the distal sigmoid colon and rectum. see full report. In 2020 she has had 3 colonoscopy which have all been negative for a source of lower GI bleeding. UPDATE HD#2 Patient's symptoms and imaging are most c/w UC. The patient does indicate that she is perhaps doing somewhat better this AM. She was started on cipro/flagyl + solumedrol 40 mg IV q 8 hours. Thus far this seems to be helping. The patient's Hgb is stabilized at 9.7 this AM. No other concerns are noted currently - though she notes poor appetite and is asking for additional pain medication. I do not see the need to transfer to the [facility] (even if beds were available - which presently they are not) -IV fluids Normal Saline 125ml/hour -Pain and nausea management -IV Solu-medrol 40 mg every 8 hours -IV Cipro 400mg every 12 hours -IV Flagyl 500mg every 8 hours -Surgical consultation with Dr. Marsh pending -Consult to Dr. Jed Walters, Internal medicine Hospitalist at [facility]. He agree with treatment plan, if she does not improve consult in am for transfer to [facility]. The hospital is near capacity at this time, but her name will be placed on list for potential admission on Sunday or Sunday. phone number [phone] - Pain control as per orders to follow - On IV dilaudid at present and I think this is sufficient to control her pain at present -am labs CBC, BMP Dyspnea Suspect fluid overload - Giving 40 mg IV lasix - Oxygen to keep SpO2 between 92-96% - Follow Hypertension -continue outpatient medications in am Chronic pancreatitis- amylase and lipase are normal range -continue outpatient medication Maintenance issues - - DVT prophylaxis -SCD - GI prophylaxis -IV PPI Protonix 40 mg every 12 hours - Nutrition -full liquid - Colon catheter -not indicated at this time CODE STATUS -full code Admission justification -this patient will be admitted for inpatient services and is medically appropriate meeting medical necessity for inpatient admission as outlined in my documentation. I reasonably expect the patient will require inpatient services that span a period time over 2 midnights. I reasonably expect this patient to be discharged or transferred within 96 hours after admission to the [facility]. Disposition -I would anticipate discharge home after the hospital stay Primary care physician -Dr. Nash Hospitalist- Dr. Granado - Mortality Measure Prognosis:: Good
[2020-08-22] MEDS: Albuterol 0.083% 2.5 MG/3 ML Neb Soln NEB PRN ×3 (13:06→23:34)
[2020-08-22] MEDS ORDERED: Furosemide 40 MG/4 ML VIAL IVPUSH STA (17:03)
[2020-08-22] MEDS ORDERED: LORazepam 2 MG/ML SDV IVPUSH PRN (18:14)
[2020-08-22] MEDS ORDERED: Haloperidol Lactate 5 MG/ML SDV IVPUSH PRN (20:45)
[2020-08-22] MEDS: Mirtazapine 15 MG Tab PO SCH (21:00)
--- NOTE | 2020-08-22 23:38 | CRLCT ---
INDICATION: ABDOMINAL PAIN CT ABDOMEN AND PELVIS WITHOUT CONTRAST TECHNIQUE: Multidetector CT imaging was performed through the abdomen and pelvis without intravenous contrast administration. Coronal and sagittal reconstructions were generated. COMPARISON: 08/20/2020 CT abdomen and pelvis. FINDINGS: Lower chest: New bibasilar patchy airspace infiltrates, right worse than left. Liver: Severe diffuse fatty infiltration of the liver. Gallbladder and bile ducts: Status post cholecystectomy, as before. No biliary dilation identified. Pancreas: Unremarkable. Spleen: Normal. Adrenals: No nodules or masses. Kidneys, ureters, and urinary bladder: Artifact from hip prostheses obscures visualization of the distal ureters and most of the urinary bladder. No urinary tract stones identified. New mild dilation of the right intrarenal collecting system and right ureter, etiology uncertain. Interval placement of Colon catheter into the urinary bladder, which appears mostly collapsed. Gastrointestinal tract and abdominal wall: Normal caliber small bowel without apparent obstruction or wall thickening. Multiple colon diverticula without evidence of diverticulitis. Improvement in previously seen diffuse colon wall thickening. Diffuse subcutaneous edema over the abdominal wall and flanks, increased compared to the previous exam. Vascular structures: Normal caliber abdominal aorta with mild moderate atherosclerotic calcifications. 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 Peritoneum: No free air, abscess, or significant free fluid. Lymph nodes: No pathologically enlarged nodes identified. Reproductive organs: Obscuration of the lower pelvis by artifact from hip prostheses. Apparent prior hysterectomy. No obvious pelvic masses. Bones: Advanced multilevel spondylosis. Bilateral hip prostheses, as before. IMPRESSION: 1. New bibasilar pulmonary infiltrates, right worse than left, most likely representing pneumonia. 2. Improvement in previously seen diffuse colon wall thickening. 3. New mild dilation of the right kidney collecting system and right ureter, etiology uncertain. The distal ureters are obscured by artifact from hip prostheses. 4. Diffuse subcutaneous edema over the abdomen and flanks, increased from before. 5. Nonacute additional findings as detailed above, similar to the previous exam. BEN BRODY MD [employer] Dictated by Ortiz Brody MD @ 08/22/2020 11:35:04 PM Dictated by: Ortiz Brody MD @ 08/22/2020 23:36:29 (Electronically Signed)
[2020-08-23] MEDS ORDERED: Furosemide 20 MG/2 ML VIAL IVPUSH ONE ×2 (00:01→03:40)
[2020-08-23] MEDS: methylPREDNISolone Sodium Succinate 40 MG/1 ML SDV IVPUSH SCH ×4 (00:19→23:10)
[2020-08-23] MEDS: HYDROmorphone 1 MG/ML Syringe IVPUSH PRN ×4 (02:16→23:31)
[2020-08-23] MEDS: metroNIDAZOLE/Normal Saline 500 MG in Premix Bag 1 BAG IV SCH ×3 (02:20→17:41)
[2020-08-23] MEDS ORDERED: Haloperidol Lactate 5 MG/ML SDV IVPUSH PRN (05:19)
[2020-08-23] MEDS ORDERED: Haloperidol Lactate 5 MG/ML SDV IVPUSH SCH (05:30)
[2020-08-23] MEDS: Amylase/Lipase/Protease 12,000 Unit Cap.CR PO SCH ×3 (08:09→16:36)
[2020-08-23] MEDS: Ciprofloxacin in D5W 400 MG in Premix Bag 1 BAG IV SCH ×2 (08:11)
[2020-08-23] MEDS: Acetaminophen/HYDROcodone 325-5 MG Tab PO PRN ×3 (08:18→20:13)
[2020-08-23] MEDS: amLODIPine 5 MG Tab PO SCH (08:25)
[2020-08-23] MEDS: Carvedilol 3.125 MG Tab PO SCH ×2 (08:26→16:55)
[2020-08-23] MEDS: Furosemide 40 MG/4 ML VIAL IVPUSH SCH (08:43)
[2020-08-23] MEDS: CYCLOSPORINE EYEBOTH SCH ×2 (09:51→20:08)
--- NOTE | 2020-08-23 09:54 | CR ---
CHEST: Portable 08/22/2020 at 5:16 PM CLINICAL HISTORY:Hypoxia, respiratory difficulty COMPARISON:08/20/2020 FINDINGS: There has been interval development of diffuse bilateral pulmonary infiltrates. Heart and pulmonary vascularity appear normal. There are atherosclerotic changes in the aorta.. There is a [id number] catheter from the right the subclavian approach. IMPRESSION: Intermittent development of diffuse bilateral pulmonary infiltrates most consistent with pneumonia.
[2020-08-23] MEDS ORDERED: Potassium Chloride 20 MEQ Tab.ER PO ONE (10:00)
[2020-08-23] MEDS ORDERED: Vancomycin 1 GM SDV IV SCH (10:00)
[2020-08-23] MEDS: Meropenem 1 GM in Sodium Chloride 0.9% 100 ML IV SCH ×2 (10:00→17:39)
[2020-08-23] MEDS: Vancomycin 1.2 GM in Sodium Chloride 0.9% 250 ML IV SCH ×2 (10:01→22:09)
[2020-08-23] MEDS: Magnesium Oxide 400 MG Tab PO SCH ×2 (10:19→20:07)
[2020-08-23] MEDS: Lactobacillus Rhamnosus GG (Probiotic) Cap PO SCH ×2 (10:19→20:07)
[2020-08-23] MEDS: POTASSIUM GLUCONATE PO SCH ×2 (10:20→20:08)
[2020-08-23] MEDS: Losartan 50 MG Tab PO SCH (10:20)
[2020-08-23] MEDS ORDERED: Magnesium Sulfate/Water 2 GM in Premix Bag 1 BAG IV ONE (10:30)
[2020-08-23] MEDS ORDERED: Potassium Chloride Riders 40 MEQ in Premix Bag 1 BAG IV ONE (10:30)
[2020-08-23] MEDS: Potassium Chloride 10 MEQ Cap.ER PO SCH (12:55)
[2020-08-23] MEDS: Pantoprazole 40 MG Vial IV SCH ×2 (12:55→23:10)
--- NOTE | 2020-08-23 15:55 | PCM.PN ---
- General Info Date of Service: 08/23/20 Subjective Update: Ms. Ma is a 60-year-old woman who was admitted through the emergency department with abdominal pain secondary to colitis. She does have a prior history of chronic pancreatitis with acute episodes requiring intermittent hospital admissions. CT scan on this admission showed evidence of fairly diffuse colitis and she was started on ciprofloxacin and Flagyl as well as Solu- Medrol. Over the last 24 hours she has been coming progressively more short of breath and hypoxic requiring supplemental oxygen and now noninvasive positive pressure ventilation. Repeat CT scan of the abdomen showed improvement in the colitis but did show evidence of bilateral pulmonary infiltrates. Chest x-ray also shows evidence of bilateral pulmonary infiltrates. Follow-up Covid test was obtained again today and is negative. Functional Status: Reports: Tolerating Diet - Review of Systems General: Reports: Fever, Weakness, Fatigue Pulmonary: Reports: Shortness of Breath, Cough, Wheezing. Denies: Pleuritic Chest Pain, Sputum, Hemoptysis Cardiovascular: Reports: Dyspnea on Exertion. Denies: Chest Pain, Palpitations, Orthopnea, PND, Edema, Lightheadedness Gastrointestinal: Reports: Abdominal Pain, Decreased Appetite. Denies: Diarrhea, Difficulty Swallowing, Nausea, Vomiting - Patient Data Vitals - Most Recent: Last Vital Signs Temp 97.9 F 08/23/20 12:00 Pulse 68 08/23/20 13:00 Resp 14 08/23/20 13:00 BP 112/63 08/23/20 13:00 Pulse Ox 91 L 08/23/20 13:00 Weight - Most Recent: 163 lb I&O - Last 24 Hours: Intake & Output 08/23/20 08/23/20 08/23/20 06:59 14:59 22:59 Output Total 700 800 Balance -700 -800 Lab Results Last 24 Hours: Laboratory Results - last 24 hr 08/22/20 08/22/20 08/22/20 Range/Units 17:25 17:25 21:55 WBC 14.7 H (4.5-11.0) K/uL RBC 3.64 (3.30-5.50) M/uL Hgb 9.2 L (12.0-15.0) g/dL Hct 31.2 L (36.0-48.0) % MCV 86 (80-98) fL MCH 25 L (27-31) pg MCHC 30 L (32-36) % Plt Count 165 (150-400) K/uL Neut % (Auto) (36-66) % Lymph % (Auto) (24-44) % [place] % (Auto) (2-6) % Eos % (Auto) (2-4) % Baso % (Auto) (0-1) % Puncture Site Rt radial ABG pH 7.382 (7.350-7.450) ABG pCO2 37.8 (35.0-42.0) mmHg ABG pO2 51.3 L (75.0-100.0) mmHg ABG HCO3 22.0 (22.0-26.0) mmol/L ABG Total CO2 20.6 L (21.0-25.0) mmol/L ABG O2 Saturation 77.0 L (95.0-98.0) % ABG O2 Content 10.6 L (15.0-23.0) %vol ABG Base Excess -2.3 mm/L ABG Hemoglobin 10.0 L (12.0-16.0) g/dL ABG Oxyhemoglobin 75.2 % ABG Carboxyhemoglobin 1.4 (0.0-1.6) % ABG Methemoglobin 0.9 % Aubrey Test Passed O2 Delivery Device Nasal cannula Sodium (140-148) mmol/L Potassium (3.6-5.2) mmol/L Chloride (100-108) mmol/L Carbon Dioxide (21-32) mmol/L Anion Gap (5.0-14.0) mmol/L BUN (7-18) mg/dL Creatinine (0.6-1.0) mg/dL Est Cr Clr Drug Dosing mL/min Estimated GFR (MDRD) (>60) Glucose (74-106) mg/dL Lactic Acid (0.4-2.0) mmol/L Calcium (8.5-10.1) mg/dL Magnesium (1.8-2.4) mg/dL Total Bilirubin (0.2-1.0) mg/dL AST (15-37) U/L ALT (12-78) U/L Alkaline Phosphatase (46-116) U/L NT-Pro-B Natriuret Pep 1859 H (5-125) pg/mL Total Protein (6.4-8.2) g/dL Albumin (3.4-5.0) g/dL Globulin (2.3-3.5) g/dL Albumin/Globulin Ratio (1.2-2.2) SARS-CoV-2 RNA (JIMMY) (NEGATIVE) 08/22/20 08/22/20 08/22/20 Range/Units 21:55 21:55 21:55 WBC (4.5-11.0) K/uL RBC (3.30-5.50) M/uL Hgb (12.0-15.0) g/dL Hct (36.0-48.0) % MCV (80-98) fL MCH (27-31) pg MCHC (32-36) % Plt Count (150-400) K/uL Neut % (Auto) (36-66) % Lymph % (Auto) (24-44) % Bartow % (Auto) (2-6) % Eos % (Auto) (2-4) % Baso % (Auto) (0-1) % Puncture Site Rt brachial ABG pH 7.365 (7.350-7.450) ABG pCO2 37.7 (35.0-42.0) mmHg ABG pO2 66.4 L (75.0-100.0) mmHg ABG HCO3 21.0 L (22.0-26.0) mmol/L ABG Total CO2 19.8 L (21.0-25.0) mmol/L ABG O2 Saturation 91.4 L (95.0-98.0) % ABG O2 Content 11.8 L (15.0-23.0) %vol ABG Base Excess -3.4 mm/L ABG Hemoglobin 9.5 L (12.0-16.0) g/dL ABG Oxyhemoglobin 88.7 % ABG Carboxyhemoglobin 1.7 H (0.0-1.6) % ABG Methemoglobin 1.3 % Aubrey Test Passed O2 Delivery Device Bipap Sodium 138 L (140-148) mmol/L Potassium 3.2 L (3.6-5.2) mmol/L Chloride 104 (100-108) mmol/L Carbon Dioxide 23 (21-32) mmol/L Anion Gap 14.2 H (5.0-14.0) mmol/L BUN 9 (7-18) mg/dL Creatinine 1.2 H (0.6-1.0) mg/dL Est Cr Clr Drug Dosing 45.42 mL/min Estimated GFR (MDRD) 46 L (>60) Glucose 179 H (74-106) mg/dL Lactic Acid 2.2 H (0.4-2.0) mmol/L Calcium 7.7 L (8.5-10.1) mg/dL Magnesium (1.8-2.4) mg/dL Total Bilirubin 1.5 H (0.2-1.0) mg/dL AST 55 H (15-37) U/L ALT 15 (12-78) U/L Alkaline Phosphatase 155 H (46-116) U/L NT-Pro-B Natriuret Pep (5-125) pg/mL Total Protein 5.2 L (6.4-8.2) g/dL Albumin 2.4 L (3.4-5.0) g/dL Globulin 2.8 (2.3-3.5) g/dL Albumin/Globulin Ratio 0.9 L (1.2-2.2) SARS-CoV-2 RNA (JIMMY) (NEGATIVE) 08/23/20 08/23/20 08/23/20 Range/Units 08:49 08:49 09:47 WBC 15.3 H (4.5-11.0) K/uL RBC 3.78 (3.30-5.50) M/uL Hgb 9.7 L (12.0-15.0) g/dL Hct 32.8 L (36.0-48.0) % MCV 87 (80-98) fL MCH 26 L (27-31) pg MCHC 30 L (32-36) % Plt Count 162 (150-400) K/uL Neut % (Auto) 91 H (36-66) % Lymph % (Auto) 4 L (24-44) % [place] % (Auto) 5 (2-6) % Eos % (Auto) 0 L (2-4) % Baso % (Auto) 0 (0-1) % Puncture Site ABG pH (7.350-7.450) ABG pCO2 (35.0-42.0) mmHg ABG pO2 (75.0-100.0) mmHg ABG HCO3 (22.0-26.0) mmol/L ABG Total CO2 (21.0-25.0) mmol/L ABG O2 Saturation (95.0-98.0) % ABG O2 Content (15.0-23.0) %vol ABG Base Excess mm/L ABG Hemoglobin (12.0-16.0) g/dL ABG Oxyhemoglobin % ABG Carboxyhemoglobin (0.0-1.6) % ABG Methemoglobin % Aubrey Test O2 Delivery Device Sodium 138 L (140-148) mmol/L Potassium 3.0 L (3.6-5.2) mmol/L Chloride 102 (100-108) mmol/L Carbon Dioxide 24 (21-32) mmol/L Anion Gap 15.0 H (5.0-14.0) mmol/L BUN 11 (7-18) mg/dL Creatinine 1.3 H (0.6-1.0) mg/dL Est Cr Clr Drug Dosing 41.93 mL/min Estimated GFR (MDRD) 42 L (>60) Glucose 197 H (74-106) mg/dL Lactic Acid (0.4-2.0) mmol/L Calcium 8.0 L (8.5-10.1) mg/dL Magnesium 1.5 L D (1.8-2.4) mg/dL Total Bilirubin 1.7 H (0.2-1.0) mg/dL AST 54 H (15-37) U/L ALT 17 (12-78) U/L Alkaline Phosphatase 164 H (46-116) U/L NT-Pro-B Natriuret Pep (5-125) pg/mL Total Protein 5.6 L (6.4-8.2) g/dL Albumin 2.6 L (3.4-5.0) g/dL Globulin 3.0 (2.3-3.5) g/dL Albumin/Globulin Ratio 0.9 L (1.2-2.2) SARS-CoV-2 RNA (JIMMY) Negative (NEGATIVE) Alberto Results Last 24 Hours: Microbiology 08/23/20 09:46 Influenza Type A Antigen Screen - Final Nasal, Unspecified NEGATIVE INFLUENZA A VIRUS AG REFERENCE RANGE: NEGATIVE Influenza Type B Antigen Screen - Final NEGATIVE INFLUENZA B VIRUS AG REFERENCE RANGE: NEGATIVE Med Orders - Current: Current Medications Hydrocodone Bitart/Acetaminophen ([place] 325-5 Mg) 1 - 2 tab PO Q6H PRN PRN Reason: Pain Last Admin: 08/23/20 14:01 Dose: 1 tab Documented by: Albuterol (Proventil Neb Soln) 2.5 mg NEB Q4H PRN PRN Reason: Shortness Of Breath/wheezing Last Admin: 08/22/20 23:34 Dose: 2.5 mg Documented by: Amlodipine Besylate (Norvasc) 10 mg PO DAILY [facility] Last Admin: 08/23/20 08:25 Dose: 10 mg Documented by: Lipase/Protease/Amylase (Laquita Hilario 12,000 Units) 6 cap PO TIDAC [facility] Last Admin: 08/23/20 12:53 Dose: 6 cap Documented by: Carvedilol (Coreg) 6.25 mg PO BIDMEALS [facility] Last Admin: 08/23/20 08:26 Dose: 6.25 mg Documented by: Haloperidol Lactate (Haldol) 2.5 - 5 mg IVPUSH Q6H PRN PRN Reason: Agitation Heparin Sodium (Porcine) (Heparin Lock Flush 100 Units/Ml) 500 units FLUSH ASDIRECTED PRN PRN Reason: flush Hydromorphone HCl (Dilaudid) 1 mg IVPUSH Q4H PRN PRN Reason: Abdominal Pain Last Admin: 08/23/20 08:49 Dose: 1 mg Documented by: Sodium Chloride (Normal Saline) 1,000 mls @ 25 mls/hr IV ASDIRECTED [facility] Last Admin: 08/22/20 06:50 Dose: 125 mls/hr Documented by: Metronidazole 500 mg/ Premix 100 mls @ 100 mls/hr IV Q8H [facility] Last Admin: 08/23/20 10:58 Dose: 100 mls/hr Documented by: Meropenem 1 gm/ Sodium (Chloride) 100 mls @ 200 mls/hr IV Q8H [facility] Last Admin: 08/23/20 10:00 Dose: 200 mls/hr Documented by: Vancomycin HCl 1.2 gm/ Sodium (Chloride) 250 mls @ 167 mls/hr IV Q12H [facility] Last Admin: 08/23/20 10:01 Dose: 167 mls/hr Documented by: Lactobacillus Rhamnosus (Culturelle) 1 cap PO BID [facility] Last Admin: 08/23/20 10:19 Dose: 1 cap Documented by: Lorazepam (Ativan) 1 mg IVPUSH Q4H PRN PRN Reason: Anxiety Last Admin: 08/22/20 18:35 Dose: 1 mg Documented by: Losartan Potassium (Cozaar) 100 mg PO DAILY [facility] Last Admin: 08/23/20 10:20 Dose: Not Given Documented by: Magnesium Oxide (Magnesium Oxide) 400 mg PO BID [facility] Last Admin: 08/23/20 10:19 Dose: 400 mg Documented by: Methylprednisolone Sodium Succinate (Solu-Medrol) 40 mg IVPUSH Q8H [facility] Last Admin: 08/23/20 08:17 Dose: 40 mg Documented by: Mirtazapine (Remeron) 15 mg PO BEDTIME [facility] Last Admin: 08/22/20 21:00 Dose: 15 mg Documented by: Cyclosporine ( Restasis) 1 Drop Pom 1 drop EYEBOTH BID [facility] Last Admin: 08/23/20 09:51 Dose: Not Given Documented by: Potassium Gluconate (1 TabPom) 1 tab PO BID [facility] Last Admin: 08/23/20 10:20 Dose: Not Given Documented by: Ondansetron HCl (Zofran Odt) 4 mg PO Q4H PRN PRN Reason: Nausea/Vomiting Last Admin: 08/21/20 15:27 Dose: 4 mg Documented by: Pantoprazole Sodium (Protonix Iv) 40 mg IV Q12H [facility] Last Admin: 08/23/20 12:55 Dose: 40 mg Documented by: Potassium Chloride (Potassium Chloride) 10 meq PO DAILY [facility] Last Admin: 08/23/20 12:55 Dose: 10 meq Documented by: Discontinued Medications Hydrocodone Bitart/Acetaminophen ([place] 325-5 Mg) 1 tab PO Q4H PRN PRN Reason: Abdominal Pain Last Admin: 08/21/20 10:16 Dose: 1 tab Documented by: Furosemide (Lasix) 40 mg IVPUSH DAILY [facility] Last Admin: 08/23/20 08:43 Dose: 40 mg Documented by: Furosemide (Lasix) 40 mg IVPUSH ONETIME STA Stop: 08/22/20 17:04 Last Admin: 08/22/20 17:18 Dose: 40 mg Documented by: Furosemide (Lasix) 20 mg IVPUSH ONETIME ONE Stop: 08/23/20 00:02 Last Admin: 08/23/20 00:19 Dose: 20 mg Documented by: Furosemide (Lasix) 20 mg IVPUSH ONETIME ONE Stop: 08/23/20 03:41 Last Admin: 08/23/20 04:00 Dose: 20 mg Documented by: Haloperidol Lactate (Haldol) 5 mg IVPUSH Q6H PRN PRN Reason: Agitation Last Admin: 08/22/20 21:08 Dose: 5 mg Documented by: Haloperidol Lactate (Haldol) 2.5 - 5 mg IVPUSH Q6H [facility] Heparin Sodium (Porcine) (Heparin Lock Flush 100 Units/Ml) Confirm Administered Dose 500 units .ROUTE .STK-MED ONE Stop: 08/23/20 04:22 Last Admin: 08/23/20 04:50 Dose: 500 units Documented by: Hydromorphone HCl (Dilaudid) 0.5 mg IVPUSH ONETIME ONE Stop: 08/20/20 15:48 Last Admin: 08/20/20 16:31 Dose: 0.5 mg Documented by: Hydromorphone HCl (Dilaudid) 1 mg IVPUSH ONETIME ONE Stop: 08/20/20 17:38 Last Admin: 08/20/20 17:52 Dose: 1 mg Documented by: Hydromorphone HCl (Dilaudid) 1 mg IVPUSH ONETIME ONE Stop: 08/20/20 21:04 Last Admin: 08/20/20 21:23 Dose: 1 mg Documented by: Sodium Chloride (Normal Saline) 1,000 mls @ 200 mls/hr IV ASDIRECTED [facility] Last Admin: 08/20/20 18:17 Dose: 999 mls/hr Documented by: Sodium Chloride (Normal Saline) 80 mls @ 3.5 mls/sec IV ASDIRECTED [facility] Stop: 08/20/20 16:01 Last Admin: 08/20/20 16:50 Dose: 3.5 mls/sec Documented by: Potassium Chloride 20 meq/ (Premix) 100 mls @ 50 mls/hr IV ONETIME ONE Stop: 08/20/20 19:29 Last Admin: 08/20/20 17:51 Dose: 50 mls/hr Documented by: Sodium Chloride (Normal Saline) 1,000 mls @ 999 mls/hr IV ASDIRECTED [facility] Ciprofloxacin/Dextrose 400 mg/ (Premix) 200 mls @ 200 mls/hr IV Q12H [facility] Last Admin: 08/23/20 08:11 Dose: 200 mls/hr Documented by: Metronidazole 500 mg/ Premix 100 mls @ 100 mls/hr IV Q8H [facility] Last Admin: 08/21/20 08:54 Dose: Not Given Documented by: Ciprofloxacin/Dextrose 400 mg/ (Premix) 200 mls @ 200 mls/hr IV ONETIME ONE Stop: 08/20/20 23:44 Last Admin: 08/20/20 23:16 Dose: 200 mls/hr Documented by: Potassium Chloride 40 meq/ (Premix) 100 mls @ 25 mls/hr IV ONETIME ONE Stop: 08/21/20 09:40 Last Admin: 08/21/20 05:59 Dose: 25 mls/hr Documented by: Potassium Chloride 20 meq/ (Premix) 100 mls @ 50 mls/hr IV ONETIME ONE Stop: 08/22/20 11:29 Last Admin: 08/22/20 10:18 Dose: 50 mls/hr Documented by: Potassium Chloride 40 meq/ (Premix) 100 mls @ 25 mls/hr IV ONETIME ONE Stop: 08/23/20 14:29 Last Admin: 08/23/20 10:06 Dose: 25 mls/hr Documented by: Magnesium Sulfate 2 gm/ Premix 50 mls @ 25 mls/hr IV ONETIME ONE Stop: 08/23/20 12:29 Last Admin: 08/23/20 10:05 Dose: 25 mls/hr Documented by: Iopamidol (Isovue-300 (61%)) 102 ml IV ONETIME ONE Stop: 08/20/20 15:54 Last Admin: 08/20/20 16:50 Dose: 102 ml Documented by: Methylprednisolone Sodium Succinate (Solu-Medrol) 40 mg IVPUSH ONETIME ONE Stop: 08/20/20 23:01 Last Admin: 08/20/20 23:09 Dose: 40 mg Documented by: Ondansetron HCl (Zofran) 4 mg IVPUSH ONETIME ONE Stop: 08/20/20 16:29 Last Admin: 08/20/20 17:13 Dose: 4 mg Documented by: Potassium Chloride (Klor-Con M20) 40 meq PO ONETIME ONE Stop: 08/23/20 10:01 Last Admin: 08/23/20 10:19 Dose: 40 meq Documented by: Sodium Chloride (Saline Flush) 10 ml FLUSH ONETIME ONE Stop: 08/20/20 15:54 Last Admin: 08/20/20 16:50 Dose: 10 ml Documented by: - Exam General: Alert, Oriented, Cooperative, Moderate Distress Lungs: Decreased Breath Sounds, Rhonchi, Wheezing. No: Rales Cardiovascular: Regular Rate GI/Abdominal Exam: Soft, No Organomegaly, Tender. No: Distended, Guarding, Rigid, Rebound Extremities: Non-Tender, No Pedal Edema Sepsis Event Note - Evaluation Sepsis Screening Result: No Definite Risk - Focused Exam Vital Signs: Vital Signs Temp Pulse Pulse Resp BP BP Pulse Ox 08/23/20 13:00 68 14 112/63 91 L 08/23/20 12:00 97.9 F 65 18 91/49 L 91 L 08/23/20 11:00 98.7 F 68 18 91/49 L 87 L 08/23/20 10:20 97/54 L 08/23/20 10:00 68 18 104/54 L 91 L 08/23/20 09:00 68 14 112/64 91 L 08/23/20 08:26 79 122/66 08/23/20 08:25 122/66 08/23/20 07:31 97.1 F 71 18 98/68 95 08/23/20 06:00 18 109/66 91 L 08/23/20 05:00 14 117/60 95 08/23/20 04:00 17 115/64 87 L - Problem List Review Problem List Initiated/Reviewed/Updated: Yes - My Orders Last 24 Hours: My Active Orders 08/23/20 09:08 Blood Culture x2 Reflex Set [OM.PC] Urgent 08/23/20 09:12 Isolation [COMM] Routine 08/23/20 09:15 Lactobacillus Rhamnosus GG [Culturelle] 1 cap PO BID 08/23/20 09:30 CULTURE BLOOD [BC] Stat 08/23/20 09:35 CULTURE BLOOD [BC] Stat 08/23/20 10:00 Meropenem [Merrem] 1 gm Sodium Chloride 0.9% [Normal Saline] 100 ml IV Q8H 08/23/20 10:30 Vancomycin 1.2 gm Sodium Chloride 0.9% [Normal Saline] 250 ml IV Q12H 08/23/20 13:00 Potassium Chloride 10 meq PO DAILY 08/24/20 05:00 CBC WITH AUTO DIFF [HEME] Timed COMPREHENSIVE METABOLIC PN,CMP [CHEM] Timed MAGNESIUM [CHEM] Timed - Plan Plan:: ASSESSMENT AND PLAN Colitis with rectal bleeding. and abdominal pain. hemoglobin 7.9 with hypotension, dizziness, fatigue, nausea. CT scan abdomen-pelvis shows prominent colitis extending from the cecum through the proximal sigmoid colon, sparing the distal sigmoid colon and rectum. see full report. Abdominal pain has improved with improvement of colitis noted on CT scan. -Pain and nausea management -IV Solu-medrol 40 mg every 8 hours -IV Flagyl 500mg every 8 hours - Pain control Bilateral pneumonia-because of current hypoxia and cough. Viral versus bacterial, white blood cell count is elevated although that could be secondary to the colitis. Repeat Covid test is again negative. Testing for influenza a and B also negative. -Blood cultures pending -IV vancomycin and meropenem pending culture results Hypoxic respiratory failure-secondary to bilateral pneumonia -Supplemental oxygen as needed -Noninvasive positive pressure ventilation Hypertension -continue outpatient medications in am Chronic pancreatitis- amylase and lipase are normal range -continue outpatient medication Maintenance issues - - DVT prophylaxis -SCD - GI prophylaxis -IV PPI Protonix 40 mg every 12 hours - Nutrition -full liquid - Colon catheter -not indicated at this time CODE STATUS -full code Admission justification -this patient will be admitted for inpatient services and is medically appropriate meeting medical necessity for inpatient admission as outlined in my documentation. I reasonably expect the patient will require inpatient services that span a period time over 2 midnights. I reasonably expect this patient to be discharged or transferred within 96 hours [facility]. Disposition -I would anticipate discharge home after the hospital stay Primary care physician -Dr. Nash
[2020-08-23] MEDS: Mirtazapine 15 MG Tab PO SCH (20:08)
[2020-08-24] MEDS: Meropenem 1 GM in Sodium Chloride 0.9% 100 ML IV SCH ×3 (01:37→17:15)
[2020-08-24] MEDS: metroNIDAZOLE/Normal Saline 500 MG in Premix Bag 1 BAG IV SCH ×3 (01:37→17:50)
[2020-08-24] MEDS ORDERED: Furosemide 20 MG/2 ML VIAL IVPUSH ONE (04:07)
[2020-08-24] MEDS: Acetaminophen/HYDROcodone 325-5 MG Tab PO PRN (04:26)
[2020-08-24] MEDS: Amylase/Lipase/Protease 12,000 Unit Cap.CR PO SCH ×3 (07:50→16:56)
[2020-08-24] MEDS: methylPREDNISolone Sodium Succinate 40 MG/1 ML SDV IVPUSH SCH ×2 (07:51→15:25)
[2020-08-24] MEDS: Carvedilol 3.125 MG Tab PO SCH ×2 (07:51→16:56)
[2020-08-24] MEDS: HYDROmorphone 1 MG/ML Syringe IVPUSH PRN ×4 (08:11→20:36)
[2020-08-24] MEDS: Losartan 50 MG Tab PO SCH (08:14)
[2020-08-24] MEDS: Potassium Chloride 10 MEQ Cap.ER PO SCH (08:14)
[2020-08-24] MEDS: Lactobacillus Rhamnosus GG (Probiotic) Cap PO SCH ×2 (08:14→20:36)
[2020-08-24] MEDS: amLODIPine 5 MG Tab PO SCH (08:15)
[2020-08-24] MEDS: Vancomycin 1.2 GM in Sodium Chloride 0.9% 250 ML IV SCH ×2 (09:35→21:56)
[2020-08-24] MEDS: CYCLOSPORINE EYEBOTH SCH ×2 (11:38→20:44)
[2020-08-24] MEDS: Pantoprazole 40 MG Vial IV SCH (11:41)
[2020-08-24] MEDS: Magnesium Oxide 400 MG Tab PO SCH ×2 (11:42→20:36)
--- NOTE | 2020-08-24 12:25 | PCM.PN ---
- General Info Date of Service: 08/24/20 Subjective Update: Ms. Ma has continued to require use of noninvasive positive pressure ventilation. Saturations have been somewhat borderline even with use of the BiPAP. Vital signs have otherwise been stable and she has remained afebrile. White blood cell count is modestly improved from yesterday. Functional Status: Reports: Tolerating Diet, Ambulating, Urinating - Review of Systems General: Reports: Weakness, Fatigue. Denies: Fever, Chills Pulmonary: Reports: Shortness of Breath, Cough, Wheezing. Denies: Pleuritic Chest Pain, Sputum, Hemoptysis Cardiovascular: Reports: Dyspnea on Exertion. Denies: Chest Pain, Palpitations, Orthopnea, PND, Edema, Lightheadedness Gastrointestinal: Reports: Abdominal Pain. Denies: Diarrhea, Difficulty Swallowing, Hematochezia, Melena, Nausea, Vomiting Genitourinary: Reports: No Symptoms - Patient Data Vitals - Most Recent: Last Vital Signs Temp 97 F 08/24/20 08:00 Pulse 77 08/24/20 10:54 Resp 22 H 08/24/20 10:54 BP 123/89 08/24/20 10:54 Pulse Ox 81 L 08/24/20 11:34 Weight - Most Recent: 163 lb I&O - Last 24 Hours: Intake & Output 08/23/20 08/24/20 08/24/20 22:59 06:59 14:59 Intake Total 1367 930 400 Output Total 400 450 650 Balance 967 480 -250 Lab Results Last 24 Hours: Laboratory Results - last 24 hr 08/20/20 08/24/20 08/24/20 Range/Units 17:31 05:39 05:39 WBC 14.3 H (4.5-11.0) K/uL RBC 4.00 (3.30-5.50) M/uL Hgb 10.4 L (12.0-15.0) g/dL Hct 34.7 L (36.0-48.0) % MCV 87 (80-98) fL MCH 26 L (27-31) pg MCHC 30 L (32-36) % Plt Count 152 (150-400) K/uL Neut % (Auto) 91 H (36-66) % Lymph % (Auto) 4 L (24-44) % [place] % (Auto) 5 (2-6) % Eos % (Auto) 0 L (2-4) % Baso % (Auto) 0 (0-1) % Sodium 141 (140-148) mmol/L Potassium 4.0 (3.6-5.2) mmol/L Chloride 106 (100-108) mmol/L Carbon Dioxide 25 (21-32) mmol/L Anion Gap 9.7 (5.0-14.0) mmol/L BUN 11 (7-18) mg/dL Creatinine 1.2 H (0.6-1.0) mg/dL Est Cr Clr Drug Dosing 45.42 mL/min Estimated GFR (MDRD) 46 L (>60) Glucose 211 H (74-106) mg/dL Calcium 8.5 (8.5-10.1) mg/dL Magnesium 2.0 (1.8-2.4) mg/dL Total Bilirubin 1.4 H (0.2-1.0) mg/dL AST 62 H (15-37) U/L ALT 16 (12-78) U/L Alkaline Phosphatase 164 H (46-116) U/L Total Protein 6.1 L (6.4-8.2) g/dL Albumin 2.7 L (3.4-5.0) g/dL Globulin 3.4 (2.3-3.5) g/dL Albumin/Globulin Ratio 0.8 L (1.2-2.2) Crossmatch See Detail Alberto Results Last 24 Hours: Microbiology 08/23/20 09:30 Aerobic Blood Culture - Preliminary Blood - Arm, Left NO GROWTH AFTER 1 DAY Anaerobic Blood Culture - Preliminary NO GROWTH AFTER 1 DAY 08/23/20 09:35 Aerobic Blood Culture - Preliminary Blood - Arterial Line - Direct Stick NO GROWTH AFTER 1 DAY Anaerobic Blood Culture - Preliminary NO GROWTH AFTER 1 DAY 08/23/20 09:46 Influenza Type A Antigen Screen - Final Nasal, Unspecified NEGATIVE INFLUENZA A VIRUS AG REFERENCE RANGE: NEGATIVE Influenza Type B Antigen Screen - Final NEGATIVE INFLUENZA B VIRUS AG REFERENCE RANGE: NEGATIVE Med Orders - Current: Current Medications Hydrocodone Bitart/Acetaminophen ([place] 325-5 Mg) 1 - 2 tab PO Q6H PRN PRN Reason: Pain Last Admin: 08/24/20 04:26 Dose: 2 tab Documented by: Albuterol (Proventil Neb Soln) 2.5 mg NEB Q4H PRN PRN Reason: Shortness Of Breath/wheezing Last Admin: 08/22/20 23:34 Dose: 2.5 mg Documented by: Amlodipine Besylate (Norvasc) 10 mg PO DAILY [facility] Last Admin: 08/24/20 08:15 Dose: 10 mg Documented by: Lipase/Protease/Amylase (Laquita Hilario 12,000 Units) 6 cap PO TIDAC [facility] Last Admin: 08/24/20 11:42 Dose: 6 cap Documented by: Carvedilol (Coreg) 6.25 mg PO BIDMEALS [facility] Last Admin: 08/24/20 07:51 Dose: 6.25 mg Documented by: Haloperidol Lactate (Haldol) 2.5 - 5 mg IVPUSH Q6H PRN PRN Reason: Agitation Heparin Sodium (Porcine) (Heparin Lock Flush 100 Units/Ml) 500 units FLUSH ASDIRECTED PRN PRN Reason: flush Last Admin: 08/24/20 04:30 Dose: 500 units Documented by: Hydromorphone HCl (Dilaudid) 1 mg IVPUSH Q4H PRN PRN Reason: Abdominal Pain Last Admin: 08/24/20 08:11 Dose: 1 mg Documented by: Sodium Chloride (Normal Saline) 1,000 mls @ 25 mls/hr IV ASDIRECTED [facility] Last Admin: 08/22/20 06:50 Dose: 125 mls/hr Documented by: Metronidazole 500 mg/ Premix 100 mls @ 100 mls/hr IV Q8H [facility] Last Admin: 08/24/20 09:12 Dose: 100 mls/hr Documented by: Meropenem 1 gm/ Sodium (Chloride) 100 mls @ 200 mls/hr IV Q8H [facility] Last Admin: 08/24/20 09:13 Dose: 200 mls/hr Documented by: Vancomycin HCl 1.2 gm/ Sodium (Chloride) 250 mls @ 167 mls/hr IV Q12H [facility] Last Admin: 08/24/20 09:35 Dose: 167 mls/hr Documented by: Lactobacillus Rhamnosus (Culturelle) 1 cap PO BID [facility] Last Admin: 08/24/20 08:14 Dose: 1 cap Documented by: Lorazepam (Ativan) 1 mg IVPUSH Q4H PRN PRN Reason: Anxiety Last Admin: 08/22/20 18:35 Dose: 1 mg Documented by: Losartan Potassium (Cozaar) 100 mg PO DAILY [facility] Last Admin: 08/24/20 08:14 Dose: 100 mg Documented by: Magnesium Oxide (Magnesium Oxide) 400 mg PO BID [facility] Last Admin: 08/24/20 11:42 Dose: 400 mg Documented by: Methylprednisolone Sodium Succinate (Solu-Medrol) 40 mg IVPUSH Q8H [facility] Last Admin: 08/24/20 07:51 Dose: 40 mg Documented by: Mirtazapine (Remeron) 15 mg PO BEDTIME [facility] Last Admin: 08/23/20 20:08 Dose: 15 mg Documented by: Cyclosporine ( Restasis) 1 Drop Pom 1 drop EYEBOTH BID [facility] Last Admin: 08/24/20 11:38 Dose: Not Given Documented by: Ondansetron HCl (Zofran Odt) 4 mg PO Q4H PRN PRN Reason: Nausea/Vomiting Last Admin: 08/21/20 15:27 Dose: 4 mg Documented by: Pantoprazole Sodium (Protonix Iv) 40 mg IV Q12H [facility] Last Admin: 08/24/20 11:41 Dose: 40 mg Documented by: Potassium Chloride (Potassium Chloride) 10 meq PO DAILY [facility] Last Admin: 08/24/20 08:14 Dose: 10 meq Documented by: Discontinued Medications Hydrocodone Bitart/Acetaminophen ([place] 325-5 Mg) 1 tab PO Q4H PRN PRN Reason: Abdominal Pain Last Admin: 08/21/20 10:16 Dose: 1 tab Documented by: Furosemide (Lasix) 40 mg IVPUSH DAILY [facility] Last Admin: 08/23/20 08:43 Dose: 40 mg Documented by: Furosemide (Lasix) 40 mg IVPUSH ONETIME STA Stop: 08/22/20 17:04 Last Admin: 08/22/20 17:18 Dose: 40 mg Documented by: Furosemide (Lasix) 20 mg IVPUSH ONETIME ONE Stop: 08/23/20 00:02 Last Admin: 08/23/20 00:19 Dose: 20 mg Documented by: Furosemide (Lasix) 20 mg IVPUSH ONETIME ONE Stop: 08/23/20 03:41 Last Admin: 08/23/20 04:00 Dose: 20 mg Documented by: Furosemide (Lasix) 20 mg IVPUSH ONETIME ONE Stop: 08/24/20 04:08 Last Admin: 08/24/20 04:26 Dose: 20 mg Documented by: Haloperidol Lactate (Haldol) 5 mg IVPUSH Q6H PRN PRN Reason: Agitation Last Admin: 08/22/20 21:08 Dose: 5 mg Documented by: Haloperidol Lactate (Haldol) 2.5 - 5 mg IVPUSH Q6H [facility] Heparin Sodium (Porcine) (Heparin Lock Flush 100 Units/Ml) Confirm Administered Dose 500 units .ROUTE .STK-MED ONE Stop: 08/23/20 04:22 Last Admin: 08/23/20 04:50 Dose: 500 units Documented by: Hydromorphone HCl (Dilaudid) 0.5 mg IVPUSH ONETIME ONE Stop: 08/20/20 15:48 Last Admin: 08/20/20 16:31 Dose: 0.5 mg Documented by: Hydromorphone HCl (Dilaudid) 1 mg IVPUSH ONETIME ONE Stop: 08/20/20 17:38 Last Admin: 08/20/20 17:52 Dose: 1 mg Documented by: Hydromorphone HCl (Dilaudid) 1 mg IVPUSH ONETIME ONE Stop: 08/20/20 21:04 Last Admin: 08/20/20 21:23 Dose: 1 mg Documented by: Sodium Chloride (Normal Saline) 1,000 mls @ 200 mls/hr IV ASDIRECTED [facility] Last Admin: 08/20/20 18:17 Dose: 999 mls/hr Documented by: Sodium Chloride (Normal Saline) 80 mls @ 3.5 mls/sec IV ASDIRECTED [facility] Stop: 08/20/20 16:01 Last Admin: 08/20/20 16:50 Dose: 3.5 mls/sec Documented by: Potassium Chloride 20 meq/ (Premix) 100 mls @ 50 mls/hr IV ONETIME ONE Stop: 08/20/20 19:29 Last Admin: 08/20/20 17:51 Dose: 50 mls/hr Documented by: Sodium Chloride (Normal Saline) 1,000 mls @ 999 mls/hr IV ASDIRECTED [facility] Ciprofloxacin/Dextrose 400 mg/ (Premix) 200 mls @ 200 mls/hr IV Q12H [facility] Last Admin: 08/23/20 08:11 Dose: 200 mls/hr Documented by: Metronidazole 500 mg/ Premix 100 mls @ 100 mls/hr IV Q8H [facility] Last Admin: 08/21/20 08:54 Dose: Not Given Documented by: Ciprofloxacin/Dextrose 400 mg/ (Premix) 200 mls @ 200 mls/hr IV ONETIME ONE Stop: 08/20/20 23:44 Last Admin: 08/20/20 23:16 Dose: 200 mls/hr Documented by: Potassium Chloride 40 meq/ (Premix) 100 mls @ 25 mls/hr IV ONETIME ONE Stop: 08/21/20 09:40 Last Admin: 08/21/20 05:59 Dose: 25 mls/hr Documented by: Potassium Chloride 20 meq/ (Premix) 100 mls @ 50 mls/hr IV ONETIME ONE Stop: 08/22/20 11:29 Last Admin: 08/22/20 10:18 Dose: 50 mls/hr Documented by: Potassium Chloride 40 meq/ (Premix) 100 mls @ 25 mls/hr IV ONETIME ONE Stop: 08/23/20 14:29 Last Admin: 08/23/20 10:06 Dose: 25 mls/hr Documented by: Magnesium Sulfate 2 gm/ Premix 50 mls @ 25 mls/hr IV ONETIME ONE Stop: 08/23/20 12:29 Last Admin: 08/23/20 10:05 Dose: 25 mls/hr Documented by: Iopamidol (Isovue-300 (61%)) 102 ml IV ONETIME ONE Stop: 08/20/20 15:54 Last Admin: 08/20/20 16:50 Dose: 102 ml Documented by: Methylprednisolone Sodium Succinate (Solu-Medrol) 40 mg IVPUSH ONETIME ONE Stop: 08/20/20 23:01 Last Admin: 08/20/20 23:09 Dose: 40 mg Documented by: Potassium Gluconate (1 TabPom) 1 tab PO BID [facility] Last Admin: 08/23/20 20:08 Dose: Not Given Documented by: Ondansetron HCl (Zofran) 4 mg IVPUSH ONETIME ONE Stop: 08/20/20 16:29 Last Admin: 08/20/20 17:13 Dose: 4 mg Documented by: Potassium Chloride (Klor-Con M20) 40 meq PO ONETIME ONE Stop: 08/23/20 10:01 Last Admin: 08/23/20 10:19 Dose: 40 meq Documented by: Sodium Chloride (Saline Flush) 10 ml FLUSH ONETIME ONE Stop: 08/20/20 15:54 Last Admin: 08/20/20 16:50 Dose: 10 ml Documented by: - Exam Quality Assessment: Supplemental Oxygen (BiPAP), DVT Prophylaxis General: Alert, Oriented, Cooperative, Moderate Distress Lungs: Rhonchi, Wheezing. No: Crackles Cardiovascular: Regular Rate, Regular Rhythm, No Murmurs GI/Abdominal Exam: Soft, Non-Tender, No Organomegaly, No Distention Extremities: Non-Tender, No Pedal Edema Sepsis Event Note - Evaluation Sepsis Screening Result: No Definite Risk - Focused Exam Vital Signs: Vital Signs Temp Pulse Pulse Resp BP BP Pulse Ox 08/24/20 11:34 08/24/20 10:54 77 22 H 123/89 89 L 08/24/20 10:52 08/24/20 10:00 72 21 H 130/78 88 L 08/24/20 08:55 75 22 H 150/89 H 87 L 08/24/20 08:15 150/89 H 08/24/20 08:14 150/89 H 08/24/20 08:00 97 F 94 25 H 150/89 H 90 L 08/24/20 07:51 89 137/87 08/24/20 07:00 87 23 H 130/77 90 L 08/24/20 06:00 16 130/80 93 L 08/24/20 05:00 15 133/75 89 L 08/24/20 04:00 14 133/73 92 L 08/24/20 03:00 16 92/57 L 90 L 08/24/20 02:00 15 112/69 93 L 08/24/20 01:00 15 113/68 88 L Pulse Ox 08/24/20 11:34 81 L 08/24/20 10:54 08/24/20 10:52 81 L 08/24/20 10:00 08/24/20 08:55 08/24/20 08:15 08/24/20 08:14 08/24/20 08:00 08/24/20 07:51 08/24/20 07:00 08/24/20 06:00 08/24/20 05:00 08/24/20 04:00 08/24/20 03:00 08/24/20 02:00 08/24/20 01:00 - Problem List Review Problem List Initiated/Reviewed/Updated: Yes - My Orders Last 24 Hours: My Active Orders 08/23/20 13:00 Potassium Chloride 10 meq PO DAILY 08/25/20 05:00 BLOOD GAS ARTERIAL [BG] Timed CBC WITH AUTO DIFF [HEME] Timed COMPREHENSIVE METABOLIC PN,CMP [CHEM] Timed - Plan Plan:: ASSESSMENT AND PLAN Colitis with rectal bleeding. and abdominal pain. hemoglobin 7.9 with hypotension, dizziness, fatigue, nausea. CT scan abdomen-pelvis shows prominent colitis extending from the cecum through the proximal sigmoid colon, sparing the distal sigmoid colon and rectum. see full report. Abdominal pain has improved with improvement of colitis noted on CT scan. -Pain and nausea management -IV Solu-medrol 40 mg every 8 hours -IV Flagyl 500mg every 8 hours - Pain control Bilateral pneumonia-Viral versus bacterial, white blood cell count is elevated although that could be secondary to the colitis. Repeat Covid test is again negative. Testing for influenza a and B also negative. -Blood cultures pending -IV vancomycin and meropenem pending culture results Hypoxic respiratory failure-secondary to bilateral pneumonia. Continues to require use of BiPAP, borderline oxygenation -Supplemental oxygen as needed -Noninvasive positive pressure ventilation -Will need to proceed with intubation mechanical ventilation if she experiences further decline in respiratory status Hypertension -continue outpatient medications in am Chronic pancreatitis- amylase and lipase are normal range -continue outpatient medication Maintenance issues - - DVT prophylaxis -SCD - GI prophylaxis -IV PPI Protonix 40 mg every 12 hours - Nutrition -full liquid - Colon catheter -not indicated at this time CODE STATUS -full code Admission justification -this patient will be admitted for inpatient services and is medically appropriate meeting medical necessity for inpatient admission as outlined in my documentation. I reasonably expect the patient will require inpatient services that span a period time over 2 midnights. I reasonably expect this patient to be discharged or transferred within 96 hours [facility]. Disposition -I would anticipate discharge home after the hospital stay Primary care physician -Dr. Nash
[2020-08-24] MEDS ORDERED: Furosemide 40 MG/4 ML VIAL IVPUSH ONE (13:00)
[2020-08-24] MEDS: Mirtazapine 15 MG Tab PO SCH (20:36)
[2020-08-25] MEDS: HYDROmorphone 1 MG/ML Syringe IVPUSH PRN ×6 (00:46→23:02)
[2020-08-25] MEDS: methylPREDNISolone Sodium Succinate 40 MG/1 ML SDV IVPUSH SCH ×4 (00:46→23:01)
[2020-08-25] MEDS: Meropenem 1 GM in Sodium Chloride 0.9% 100 ML IV SCH ×3 (01:00→18:03)
[2020-08-25] MEDS: metroNIDAZOLE/Normal Saline 500 MG in Premix Bag 1 BAG IV SCH ×3 (01:01→19:01)
[2020-08-25] MEDS: Carvedilol 3.125 MG Tab PO SCH ×2 (08:09→18:21)
[2020-08-25] MEDS: Amylase/Lipase/Protease 12,000 Unit Cap.CR PO SCH ×3 (08:09→15:56)
[2020-08-25] MEDS: Lactobacillus Rhamnosus GG (Probiotic) Cap PO SCH ×2 (08:10→20:42)
[2020-08-25] MEDS: Losartan 50 MG Tab PO SCH (08:10)
[2020-08-25] MEDS ORDERED: Potassium Chloride 20 MEQ Tab.ER PO ONE ×2 (08:30→15:30)
[2020-08-25] MEDS: CYCLOSPORINE EYEBOTH SCH ×2 (08:50→20:42)
[2020-08-25] MEDS: Magnesium Oxide 400 MG Tab PO SCH ×2 (09:27→20:42)
[2020-08-25] MEDS: amLODIPine 5 MG Tab PO SCH (09:27)
[2020-08-25] MEDS: Potassium Chloride 10 MEQ Cap.ER PO SCH (09:27)
[2020-08-25] MEDS: Pantoprazole 40 MG Vial IV SCH (09:28)
[2020-08-25] MEDS: Acetaminophen/HYDROcodone 325-5 MG Tab PO PRN ×3 (09:33→23:01)
--- NOTE | 2020-08-25 15:36 | PCM.PN ---
- General Info Date of Service: 08/25/20 Subjective Update: Ms. Ma has continued to experience respiratory failure secondary to bilateral pulmonary infiltrates. She has required increase in supplemental oxygen through BiPAP over the last 24 hours. Blood gases from this morning show more than adequate oxygenation with current settings. Vital signs have remained stable and she has been afebrile. Functional Status: Reports: Tolerating Diet, Urinating - Review of Systems General: Reports: Weakness. Denies: Fever, Chills Pulmonary: Reports: Shortness of Breath, Wheezing. Denies: Pleuritic Chest Pain, Cough, Sputum, Hemoptysis Cardiovascular: Reports: Dyspnea on Exertion. Denies: Chest Pain, Palpitations, Orthopnea, PND, Edema, Lightheadedness Gastrointestinal: Reports: No Symptoms Genitourinary: Reports: No Symptoms - Patient Data Vitals - Most Recent: Last Vital Signs Temp 97 F 08/25/20 12:00 Pulse 80 08/25/20 15:00 Resp 18 08/25/20 15:00 BP 127/70 08/25/20 15:00 Pulse Ox 83 L 08/25/20 15:00 Weight - Most Recent: 163 lb I&O - Last 24 Hours: Intake & Output 08/25/20 08/25/20 08/25/20 06:59 14:59 22:59 Intake Total 200 400 Output Total 425 50 500 Balance -225 -50 -100 Lab Results Last 24 Hours: Laboratory Results - last 24 hr 08/25/20 08/25/20 08/25/20 Range/Units 04:25 04:25 04:25 WBC 15.5 H (4.5-11.0) K/uL RBC 3.92 (3.30-5.50) M/uL Hgb 10.4 L (12.0-15.0) g/dL Hct 34.1 L (36.0-48.0) % MCV 87 (80-98) fL MCH 27 (27-31) pg MCHC 31 L (32-36) % Plt Count 146 L (150-400) K/uL Neut % (Auto) 87 H (36-66) % Lymph % (Auto) 6 L (24-44) % [place] % (Auto) 6 (2-6) % Eos % (Auto) 0 L (2-4) % Baso % (Auto) 0 (0-1) % Puncture Site Lt radial ABG pH 7.355 (7.350-7.450) ABG pCO2 48.4 H (35.0-42.0) mmHg ABG pO2 118.0 H (75.0-100.0) mmHg ABG HCO3 26.4 H (22.0-26.0) mmol/L ABG Total CO2 24.5 (21.0-25.0) mmol/L ABG O2 Saturation 98.4 H (95.0-98.0) % ABG O2 Content 14.3 L (15.0-23.0) %vol ABG Base Excess 1.0 mm/L ABG Hemoglobin 10.5 L (12.0-16.0) g/dL ABG Oxyhemoglobin 95.3 % ABG Carboxyhemoglobin 2.2 H (0.0-1.6) % ABG Methemoglobin 0.9 % Aubrey Test Pass O2 Delivery Device Bipap Oxygen Flow Rate L Sodium 140 (140-148) mmol/L Potassium 3.3 L (3.6-5.2) mmol/L Chloride 103 (100-108) mmol/L Carbon Dioxide 27 (21-32) mmol/L Anion Gap 13.3 (5.0-14.0) mmol/L BUN 11 (7-18) mg/dL Creatinine 1.1 H (0.6-1.0) mg/dL Est Cr Clr Drug Dosing 49.55 mL/min Estimated GFR (MDRD) 51 L (>60) Glucose 190 H (74-106) mg/dL Calcium 8.5 (8.5-10.1) mg/dL Total Bilirubin 1.5 H (0.2-1.0) mg/dL AST 54 H (15-37) U/L ALT 17 (12-78) U/L Alkaline Phosphatase 163 H (46-116) U/L Total Protein 6.1 L (6.4-8.2) g/dL Albumin 2.7 L (3.4-5.0) g/dL Globulin 3.4 (2.3-3.5) g/dL Albumin/Globulin Ratio 0.8 L (1.2-2.2) Vancomycin Trough (10.0-20.0) ug/mL 08/25/20 Range/Units 10:05 WBC (4.5-11.0) K/uL RBC (3.30-5.50) M/uL Hgb (12.0-15.0) g/dL Hct (36.0-48.0) % MCV (80-98) fL MCH (27-31) pg MCHC (32-36) % Plt Count (150-400) K/uL Neut % (Auto) (36-66) % Lymph % (Auto) (24-44) % [place] % (Auto) (2-6) % Eos % (Auto) (2-4) % Baso % (Auto) (0-1) % Puncture Site ABG pH (7.350-7.450) ABG pCO2 (35.0-42.0) mmHg ABG pO2 (75.0-100.0) mmHg ABG HCO3 (22.0-26.0) mmol/L ABG Total CO2 (21.0-25.0) mmol/L ABG O2 Saturation (95.0-98.0) % ABG O2 Content (15.0-23.0) %vol ABG Base Excess mm/L ABG Hemoglobin (12.0-16.0) g/dL ABG Oxyhemoglobin % ABG Carboxyhemoglobin (0.0-1.6) % ABG Methemoglobin % Aubrey Test O2 Delivery Device Oxygen Flow Rate L Sodium (140-148) mmol/L Potassium (3.6-5.2) mmol/L Chloride (100-108) mmol/L Carbon Dioxide (21-32) mmol/L Anion Gap (5.0-14.0) mmol/L BUN (7-18) mg/dL Creatinine (0.6-1.0) mg/dL Est Cr Clr Drug Dosing mL/min Estimated GFR (MDRD) (>60) Glucose (74-106) mg/dL Calcium (8.5-10.1) mg/dL Total Bilirubin (0.2-1.0) mg/dL AST (15-37) U/L ALT (12-78) U/L Alkaline Phosphatase (46-116) U/L Total Protein (6.4-8.2) g/dL Albumin (3.4-5.0) g/dL Globulin (2.3-3.5) g/dL Albumin/Globulin Ratio (1.2-2.2) Vancomycin Trough 29.0 H (10.0-20.0) ug/mL Alberto Results Last 24 Hours: Microbiology 08/23/20 09:30 Aerobic Blood Culture - Preliminary Blood - Arm, Left NO GROWTH AFTER 2 DAYS Anaerobic Blood Culture - Preliminary NO GROWTH AFTER 2 DAYS 08/23/20 09:35 Aerobic Blood Culture - Preliminary Blood - Arterial Line - Direct Stick NO GROWTH AFTER 2 DAYS Anaerobic Blood Culture - Preliminary NO GROWTH AFTER 2 DAYS Med Orders - Current: Current Medications Hydrocodone Bitart/Acetaminophen ([place] 325-5 Mg) 1 - 2 tab PO Q6H PRN PRN Reason: Pain Last Admin: 08/25/20 09:33 Dose: 1 tab Documented by: Albuterol (Proventil Neb Soln) 2.5 mg NEB Q4H PRN PRN Reason: Shortness Of Breath/wheezing Last Admin: 08/22/20 23:34 Dose: 2.5 mg Documented by: Amlodipine Besylate (Norvasc) 10 mg PO DAILY [facility] Last Admin: 08/25/20 09:27 Dose: 10 mg Documented by: Lipase/Protease/Amylase (Laquita Hilario 12,000 Units) 6 cap PO TIDAC [facility] Last Admin: 08/25/20 12:21 Dose: 6 cap Documented by: Carvedilol (Coreg) 6.25 mg PO BIDMEALS [facility] Last Admin: 08/25/20 08:09 Dose: 6.25 mg Documented by: Furosemide (Lasix) 40 mg IVPUSH NOW ONE Stop: 08/25/20 16:01 Haloperidol Lactate (Haldol) 2.5 - 5 mg IVPUSH Q6H PRN PRN Reason: Agitation Heparin Sodium (Porcine) (Heparin Lock Flush 100 Units/Ml) 500 units FLUSH ASDIRECTED PRN PRN Reason: flush Last Admin: 08/24/20 04:30 Dose: 500 units Documented by: Hydromorphone HCl (Dilaudid) 1 mg IVPUSH Q4H PRN PRN Reason: Abdominal Pain Last Admin: 08/25/20 14:29 Dose: 1 mg Documented by: Metronidazole 500 mg/ Premix 100 mls @ 100 mls/hr IV Q8H [facility] Last Admin: 08/25/20 09:51 Dose: 100 mls/hr Documented by: Meropenem 1 gm/ Sodium (Chloride) 100 mls @ 200 mls/hr IV Q8H [facility] Last Admin: 08/25/20 09:52 Dose: 200 mls/hr Documented by: Vancomycin HCl 1.2 gm/ Sodium (Chloride) 250 mls @ 167 mls/hr IV Q24H [facility] Lactobacillus Rhamnosus (Culturelle) 1 cap PO BID [facility] Last Admin: 08/25/20 08:10 Dose: 1 cap Documented by: Lorazepam (Ativan) 1 mg IVPUSH Q4H PRN PRN Reason: Anxiety Last Admin: 08/22/20 18:35 Dose: 1 mg Documented by: Losartan Potassium (Cozaar) 100 mg PO DAILY [facility] Last Admin: 08/25/20 08:10 Dose: 100 mg Documented by: Magnesium Oxide (Magnesium Oxide) 400 mg PO BID [facility] Last Admin: 08/25/20 09:27 Dose: 400 mg Documented by: Methylprednisolone Sodium Succinate (Solu-Medrol) 40 mg IVPUSH Q8H [facility] Last Admin: 08/25/20 08:10 Dose: 40 mg Documented by: Mirtazapine (Remeron) 15 mg PO BEDTIME [facility] Last Admin: 08/24/20 20:36 Dose: 15 mg Documented by: Cyclosporine ( Restasis) 1 Drop Pom 1 drop EYEBOTH BID [facility] Last Admin: 08/25/20 08:50 Dose: Not Given Documented by: Ondansetron HCl (Zofran Odt) 4 mg PO Q4H PRN PRN Reason: Nausea/Vomiting Last Admin: 08/21/20 15:27 Dose: 4 mg Documented by: Pantoprazole Sodium (Protonix Iv) 40 mg IV DAILY [facility] Last Admin: 08/25/20 09:28 Dose: 40 mg Documented by: Potassium Chloride (Potassium Chloride) 10 meq PO DAILY [facility] Last Admin: 08/25/20 09:27 Dose: 10 meq Documented by: Discontinued Medications Hydrocodone Bitart/Acetaminophen ([place] 325-5 Mg) 1 tab PO Q4H PRN PRN Reason: Abdominal Pain Last Admin: 08/21/20 10:16 Dose: 1 tab Documented by: Furosemide (Lasix) 40 mg IVPUSH DAILY [facility] Last Admin: 08/23/20 08:43 Dose: 40 mg Documented by: Furosemide (Lasix) 40 mg IVPUSH ONETIME STA Stop: 08/22/20 17:04 Last Admin: 08/22/20 17:18 Dose: 40 mg Documented by: Furosemide (Lasix) 20 mg IVPUSH ONETIME ONE Stop: 08/23/20 00:02 Last Admin: 08/23/20 00:19 Dose: 20 mg Documented by: Furosemide (Lasix) 20 mg IVPUSH ONETIME ONE Stop: 08/23/20 03:41 Last Admin: 08/23/20 04:00 Dose: 20 mg Documented by: Furosemide (Lasix) 20 mg IVPUSH ONETIME ONE Stop: 08/24/20 04:08 Last Admin: 08/24/20 04:26 Dose: 20 mg Documented by: Furosemide (Lasix) 40 mg IVPUSH ONETIME ONE Stop: 08/24/20 13:01 Last Admin: 08/24/20 13:30 Dose: 40 mg Documented by: Haloperidol Lactate (Haldol) 5 mg IVPUSH Q6H PRN PRN Reason: Agitation Last Admin: 08/22/20 21:08 Dose: 5 mg Documented by: Haloperidol Lactate (Haldol) 2.5 - 5 mg IVPUSH Q6H [facility] Heparin Sodium (Porcine) (Heparin Lock Flush 100 Units/Ml) Confirm Administered Dose 500 units .ROUTE .STK-MED ONE Stop: 08/23/20 04:22 Last Admin: 08/23/20 04:50 Dose: 500 units Documented by: Hydromorphone HCl (Dilaudid) 0.5 mg IVPUSH ONETIME ONE Stop: 08/20/20 15:48 Last Admin: 08/20/20 16:31 Dose: 0.5 mg Documented by: Hydromorphone HCl (Dilaudid) 1 mg IVPUSH ONETIME ONE Stop: 08/20/20 17:38 Last Admin: 08/20/20 17:52 Dose: 1 mg Documented by: Hydromorphone HCl (Dilaudid) 1 mg IVPUSH ONETIME ONE Stop: 08/20/20 21:04 Last Admin: 08/20/20 21:23 Dose: 1 mg Documented by: Sodium Chloride (Normal Saline) 1,000 mls @ 200 mls/hr IV ASDIRECTED [facility] Last Admin: 08/20/20 18:17 Dose: 999 mls/hr Documented by: Sodium Chloride (Normal Saline) 80 mls @ 3.5 mls/sec IV ASDIRECTED [facility] Stop: 08/20/20 16:01 Last Admin: 08/20/20 16:50 Dose: 3.5 mls/sec Documented by: Potassium Chloride 20 meq/ (Premix) 100 mls @ 50 mls/hr IV ONETIME ONE Stop: 08/20/20 19:29 Last Admin: 08/20/20 17:51 Dose: 50 mls/hr Documented by: Sodium Chloride (Normal Saline) 1,000 mls @ 999 mls/hr IV ASDIRECTED [facility] Sodium Chloride (Normal Saline) 1,000 mls @ 25 mls/hr IV ASDIRECTED [facility] Last Admin: 08/22/20 06:50 Dose: 125 mls/hr Documented by: Ciprofloxacin/Dextrose 400 mg/ (Premix) 200 mls @ 200 mls/hr IV Q12H [facility] Last Admin: 08/23/20 08:11 Dose: 200 mls/hr Documented by: Metronidazole 500 mg/ Premix 100 mls @ 100 mls/hr IV Q8H [facility] Last Admin: 08/21/20 08:54 Dose: Not Given Documented by: Ciprofloxacin/Dextrose 400 mg/ (Premix) 200 mls @ 200 mls/hr IV ONETIME ONE Stop: 08/20/20 23:44 Last Admin: 08/20/20 23:16 Dose: 200 mls/hr Documented by: Potassium Chloride 40 meq/ (Premix) 100 mls @ 25 mls/hr IV ONETIME ONE Stop: 08/21/20 09:40 Last Admin: 08/21/20 05:59 Dose: 25 mls/hr Documented by: Potassium Chloride 20 meq/ (Premix) 100 mls @ 50 mls/hr IV ONETIME ONE Stop: 08/22/20 11:29 Last Admin: 08/22/20 10:18 Dose: 50 mls/hr Documented by: Potassium Chloride 40 meq/ (Premix) 100 mls @ 25 mls/hr IV ONETIME ONE Stop: 08/23/20 14:29 Last Admin: 08/23/20 10:06 Dose: 25 mls/hr Documented by: Magnesium Sulfate 2 gm/ Premix 50 mls @ 25 mls/hr IV ONETIME ONE Stop: 08/23/20 12:29 Last Admin: 08/23/20 10:05 Dose: 25 mls/hr Documented by: Vancomycin HCl 1.2 gm/ Sodium (Chloride) 250 mls @ 167 mls/hr IV Q12H [facility] Last Admin: 08/24/20 21:56 Dose: 167 mls/hr Documented by: Iopamidol (Isovue-300 (61%)) 102 ml IV ONETIME ONE Stop: 08/20/20 15:54 Last Admin: 08/20/20 16:50 Dose: 102 ml Documented by: Methylprednisolone Sodium Succinate (Solu-Medrol) 40 mg IVPUSH ONETIME ONE Stop: 08/20/20 23:01 Last Admin: 08/20/20 23:09 Dose: 40 mg Documented by: Potassium Gluconate (1 TabPom) 1 tab PO BID [facility] Last Admin: 08/23/20 20:08 Dose: Not Given Documented by: Ondansetron HCl (Zofran) 4 mg IVPUSH ONETIME ONE Stop: 08/20/20 16:29 Last Admin: 08/20/20 17:13 Dose: 4 mg Documented by: Pantoprazole Sodium (Protonix Iv) 40 mg IV Q12H [facility] Last Admin: 08/24/20 11:41 Dose: 40 mg Documented by: Potassium Chloride (Klor-Con M20) 40 meq PO ONETIME ONE Stop: 08/23/20 10:01 Last Admin: 08/23/20 10:19 Dose: 40 meq Documented by: Potassium Chloride (Klor-Con M20) 40 meq PO ONETIME ONE Stop: 08/25/20 08:31 Last Admin: 08/25/20 08:49 Dose: 40 meq Documented by: Potassium Chloride (Klor-Con M20) 40 meq PO ONETIME ONE Stop: 08/25/20 15:31 Sodium Chloride (Saline Flush) 10 ml FLUSH ONETIME ONE Stop: 08/20/20 15:54 Last Admin: 08/20/20 16:50 Dose: 10 ml Documented by: - Exam Quality Assessment: Supplemental Oxygen, DVT Prophylaxis General: Alert, Oriented, Cooperative, Moderate Distress Lungs: Decreased Breath Sounds, Rales, Wheezing. No: Crackles, Rhonchi Cardiovascular: Regular Rate, Regular Rhythm, No Murmurs GI/Abdominal Exam: Soft, Non-Tender, No Organomegaly, No Distention Extremities: Non-Tender, No Pedal Edema Sepsis Event Note - Evaluation Sepsis Screening Result: No Definite Risk - Focused Exam Vital Signs: Vital Signs Temp Pulse Pulse Resp BP BP Pulse Ox 08/25/20 15:00 80 18 127/70 83 L 08/25/20 14:00 78 20 114/53 L 86 L 08/25/20 13:00 77 21 H 103/50 L 89 L 08/25/20 12:00 97 F 74 20 132/75 88 L 08/25/20 11:00 81 21 H 121/63 87 L 08/25/20 10:00 82 23 H 135/63 88 L 08/25/20 09:27 132/78 08/25/20 09:00 79 20 123/72 89 L 08/25/20 08:10 132/70 08/25/20 08:09 90 132/70 08/25/20 08:00 83 18 132/70 89 L 08/25/20 07:00 97.3 F 80 19 115/79 95 08/25/20 06:00 14 121/67 87 L 08/25/20 05:00 17 117/75 90 L 08/25/20 04:00 20 125/71 96 - Problem List Review Problem List Initiated/Reviewed/Updated: Yes - My Orders Last 24 Hours: My Active Orders 08/25/20 09:00 Pantoprazole [ProTONIX IV] 40 mg IV DAILY 08/25/20 15:29 Convert IV to Saline Lock [OM.PC] Routine 08/25/20 16:00 Furosemide [Lasix] 40 mg IVPUSH NOW ONE 08/25/20 22:00 Vancomycin 1.2 gm Sodium Chloride 0.9% [Normal Saline] 250 ml IV Q24H 08/26/20 05:00 BLOOD GAS ARTERIAL [BG] Timed CBC WITH AUTO DIFF [HEME] Timed COMPREHENSIVE METABOLIC PN,CMP [CHEM] Timed - Plan Plan:: ASSESSMENT AND PLAN Colitis with rectal bleeding. and abdominal pain. CT scan abdomen-pelvis shows prominent colitis extending from the cecum through the proximal sigmoid colon, sparing the distal sigmoid colon and rectum. see full report. Abdominal pain has improved with improvement of colitis noted on CT scan. -Pain and nausea management -IV Solu-medrol 40 mg every 8 hours -IV Flagyl 500mg every 8 hours - Pain control Bilateral pneumonia-Viral versus bacterial, white blood cell count is elevated although that could be secondary to the colitis and/or Solu-Medrol. Repeat Covid test is again negative. Testing for influenza a and B also negative. -Blood cultures pending -IV vancomycin and meropenem pending culture results Hypoxic respiratory failure-secondary to bilateral pneumonia. Continues to require use of BiPAP, borderline oxygenation -Furosemide 40 mg IV today -Supplemental oxygen as needed -Noninvasive positive pressure ventilation -Will need to proceed with intubation mechanical ventilation if she experiences further decline in respiratory status Hypertension -continue outpatient medications in am Chronic pancreatitis- amylase and lipase are normal range -continue outpatient medication Maintenance issues - - DVT prophylaxis -SCD - GI prophylaxis -IV PPI Protonix 40 mg every 12 hours - Nutrition -full liquid - Colon catheter -not indicated at this time CODE STATUS -full code Admission justification -this patient will be admitted for inpatient services and is medically appropriate meeting medical necessity for inpatient admission as outlined in my documentation. I reasonably expect the patient will require inpatient services that span a period time over 2 midnights. I reasonably expect this patient to be discharged or transferred within 96 hours after admission to the [facility]. Disposition -I would anticipate discharge home after the hospital stay Primary care physician -Dr. Nash
[2020-08-25] MEDS ORDERED: Furosemide 40 MG/4 ML VIAL IVPUSH ONE (16:00)
[2020-08-25] MEDS: Mirtazapine 15 MG Tab PO SCH (20:42)
[2020-08-25] MEDS: Vancomycin 1.2 GM in Sodium Chloride 0.9% 250 ML IV SCH (21:13)
[2020-08-26] MEDS: metroNIDAZOLE/Normal Saline 500 MG in Premix Bag 1 BAG IV SCH ×3 (01:46→17:51)
[2020-08-26] MEDS: Meropenem 1 GM in Sodium Chloride 0.9% 100 ML IV SCH ×3 (03:01→17:02)
[2020-08-26] MEDS: HYDROmorphone 1 MG/ML Syringe IVPUSH PRN ×5 (03:03→19:42)
[2020-08-26] MEDS: Acetaminophen/HYDROcodone 325-5 MG Tab PO PRN ×3 (04:54→19:42)
[2020-08-26] MEDS: Amylase/Lipase/Protease 12,000 Unit Cap.CR PO SCH ×3 (07:55→15:40)
[2020-08-26] MEDS: Carvedilol 3.125 MG Tab PO SCH ×2 (07:56→17:02)
[2020-08-26] MEDS: methylPREDNISolone Sodium Succinate 40 MG/1 ML SDV IVPUSH SCH ×2 (07:57→15:40)
[2020-08-26] MEDS: Losartan 50 MG Tab PO SCH (08:02)
[2020-08-26] MEDS: Potassium Chloride 10 MEQ Cap.ER PO SCH (08:03)
[2020-08-26] MEDS: Lactobacillus Rhamnosus GG (Probiotic) Cap PO SCH ×2 (08:03→21:18)
[2020-08-26] MEDS: Magnesium Oxide 400 MG Tab PO SCH ×2 (08:04→21:18)
[2020-08-26] MEDS: amLODIPine 5 MG Tab PO SCH (08:05)
[2020-08-26] MEDS: Pantoprazole 40 MG Vial IV SCH (08:06)
[2020-08-26] MEDS: CYCLOSPORINE EYEBOTH SCH ×2 (08:08→21:18)
[2020-08-26] MEDS ORDERED: Furosemide 40 MG/4 ML VIAL IVPUSH ONE (17:00)
--- NOTE | 2020-08-26 17:09 | PCM.PN ---
- General Info Date of Service: 08/26/20 Subjective Update: Ms. Ma on further improvement over the last 24 hours with modest improvement in oxygenation and respiratory status. She is remained afebrile and has been hemodynamically stable. Continues to experience shortness of breath and desaturation with fairly minimal exertion. White blood cell count has normalized. Functional Status: Reports: Tolerating Diet, Urinating. Denies: Ambulating - Review of Systems General: Reports: Weakness, Fatigue. Denies: Fever, Chills Pulmonary: Reports: Shortness of Breath, Wheezing. Denies: Pleuritic Chest Pain, Cough, Sputum, Hemoptysis Cardiovascular: Reports: Dyspnea on Exertion, Edema. Denies: Chest Pain, Palpitations, Orthopnea, PND, Lightheadedness Gastrointestinal: Reports: Diarrhea. Denies: Constipation, Difficulty Swallowing, Hematochezia, Melena, Nausea, Vomiting Genitourinary: Reports: No Symptoms - Patient Data Vitals - Most Recent: Last Vital Signs Temp 97.4 F 08/26/20 11:00 Pulse 61 08/26/20 17:02 Resp 19 08/26/20 16:00 BP 107/62 08/26/20 17:02 Pulse Ox 97 08/26/20 16:00 Weight - Most Recent: 163 lb I&O - Last 24 Hours: Intake & Output 08/26/20 08/26/20 08/26/20 06:59 14:59 22:59 Intake Total 1762 200 Output Total 400 Balance 1362 200 Lab Results Last 24 Hours: Laboratory Results - last 24 hr 08/26/20 08/26/20 08/26/20 Range/Units 06:45 06:45 06:45 WBC 10.0 (4.5-11.0) K/uL RBC 3.63 (3.30-5.50) M/uL Hgb 9.7 L (12.0-15.0) g/dL Hct 31.1 L (36.0-48.0) % MCV 86 (80-98) fL MCH 27 (27-31) pg MCHC 31 L (32-36) % Plt Count 109 L (150-400) K/uL Neut % (Auto) 86 H (36-66) % Lymph % (Auto) 6 L (24-44) % [place] % (Auto) 7 H (2-6) % Eos % (Auto) 0 L (2-4) % Baso % (Auto) 0 (0-1) % Puncture Site L radial ABG pH 7.450 (7.350-7.450) ABG pCO2 41.5 (35.0-42.0) mmHg ABG pO2 85.4 (75.0-100.0) mmHg ABG HCO3 28.4 H (22.0-26.0) mmol/L ABG Total CO2 26.2 H (21.0-25.0) mmol/L ABG O2 Saturation 96.5 (95.0-98.0) % ABG O2 Content 13.2 L (15.0-23.0) %vol ABG Base Excess 4.5 mm/L ABG Hemoglobin 9.9 L (12.0-16.0) g/dL ABG Oxyhemoglobin 93.9 % ABG Carboxyhemoglobin 1.7 H (0.0-1.6) % ABG Methemoglobin 1.0 % Aubrey Test Ok O2 Delivery Device Bipap Oxygen Flow Rate L Sodium 140 (140-148) mmol/L Potassium 3.6 (3.6-5.2) mmol/L Chloride 104 (100-108) mmol/L Carbon Dioxide 28 (21-32) mmol/L Anion Gap 7.6 (5.0-14.0) mmol/L BUN 15 (7-18) mg/dL Creatinine 1.0 (0.6-1.0) mg/dL Est Cr Clr Drug Dosing 54.51 mL/min Estimated GFR (MDRD) 57 L (>60) Glucose 223 H (74-106) mg/dL Calcium 9.2 (8.5-10.1) mg/dL Total Bilirubin 1.2 H (0.2-1.0) mg/dL AST 34 (15-37) U/L ALT 16 (12-78) U/L Alkaline Phosphatase 145 H (46-116) U/L Total Protein 5.3 L (6.4-8.2) g/dL Albumin 2.3 L (3.4-5.0) g/dL Globulin 3.0 (2.3-3.5) g/dL Albumin/Globulin Ratio 0.8 L (1.2-2.2) Alberto Results Last 24 Hours: Microbiology 08/23/20 09:30 Aerobic Blood Culture - Preliminary Blood - Arm, Left NO GROWTH AFTER 3 DAYS Anaerobic Blood Culture - Preliminary NO GROWTH AFTER 3 DAYS 08/23/20 09:35 Aerobic Blood Culture - Preliminary Blood - Arterial Line - Direct Stick NO GROWTH AFTER 3 DAYS Anaerobic Blood Culture - Preliminary NO GROWTH AFTER 3 DAYS Med Orders - Current: Current Medications Hydrocodone Bitart/Acetaminophen ([place] 325-5 Mg) 1 - 2 tab PO Q6H PRN PRN Reason: Pain Last Admin: 08/26/20 12:29 Dose: 2 tab Documented by: Albuterol (Proventil Neb Soln) 2.5 mg NEB Q4H PRN PRN Reason: Shortness Of Breath/wheezing Last Admin: 08/22/20 23:34 Dose: 2.5 mg Documented by: Amlodipine Besylate (Norvasc) 10 mg PO DAILY [facility] Last Admin: 08/26/20 08:05 Dose: 10 mg Documented by: Lipase/Protease/Amylase (Laquita Hilario 12,000 Units) 6 cap PO TIDAC [facility] Last Admin: 08/26/20 15:40 Dose: 6 cap Documented by: Carvedilol (Coreg) 6.25 mg PO BIDMEALS [facility] Last Admin: 08/26/20 17:02 Dose: 6.25 mg Documented by: Haloperidol Lactate (Haldol) 2.5 - 5 mg IVPUSH Q6H PRN PRN Reason: Agitation Last Admin: 08/25/20 20:45 Dose: 2.5 mg Documented by: Heparin Sodium (Porcine) (Heparin Lock Flush 100 Units/Ml) 500 units FLUSH ASDIRECTED PRN PRN Reason: flush Last Admin: 08/24/20 04:30 Dose: 500 units Documented by: Hydromorphone HCl (Dilaudid) 1 mg IVPUSH Q4H PRN PRN Reason: Abdominal Pain Last Admin: 08/26/20 15:40 Dose: 1 mg Documented by: Metronidazole 500 mg/ Premix 100 mls @ 100 mls/hr IV Q8H [facility] Last Admin: 08/26/20 10:14 Dose: 100 mls/hr Documented by: Meropenem 1 gm/ Sodium (Chloride) 100 mls @ 200 mls/hr IV Q8H [facility] Last Admin: 08/26/20 17:02 Dose: 200 mls/hr Documented by: Vancomycin HCl 1.2 gm/ Sodium (Chloride) 250 mls @ 167 mls/hr IV Q24H [facility] Last Admin: 08/25/20 21:13 Dose: 167 mls/hr Documented by: Lactobacillus Rhamnosus (Culturelle) 1 cap PO BID [facility] Last Admin: 08/26/20 08:03 Dose: 1 cap Documented by: Lorazepam (Ativan) 1 mg IVPUSH Q4H PRN PRN Reason: Anxiety Last Admin: 08/22/20 18:35 Dose: 1 mg Documented by: Losartan Potassium (Cozaar) 100 mg PO DAILY [facility] Last Admin: 08/26/20 08:02 Dose: 100 mg Documented by: Magnesium Oxide (Magnesium Oxide) 400 mg PO BID [facility] Last Admin: 08/26/20 08:04 Dose: 400 mg Documented by: Methylprednisolone Sodium Succinate (Solu-Medrol) 40 mg IVPUSH Q24H [facility] Mirtazapine (Remeron) 15 mg PO BEDTIME [facility] Last Admin: 08/25/20 20:42 Dose: Not Given Documented by: Cyclosporine ( Restasis) 1 Drop Pom 1 drop EYEBOTH BID [facility] Last Admin: 08/26/20 08:08 Dose: Not Given Documented by: Ondansetron HCl (Zofran Odt) 4 mg PO Q4H PRN PRN Reason: Nausea/Vomiting Last Admin: 08/21/20 15:27 Dose: 4 mg Documented by: Pantoprazole Sodium (Protonix Iv) 40 mg IV DAILY [facility] Last Admin: 08/26/20 08:06 Dose: 40 mg Documented by: Potassium Chloride (Potassium Chloride) 10 meq PO DAILY [facility] Last Admin: 08/26/20 08:03 Dose: 10 meq Documented by: Discontinued Medications Hydrocodone Bitart/Acetaminophen ([place] 325-5 Mg) 1 tab PO Q4H PRN PRN Reason: Abdominal Pain Last Admin: 08/21/20 10:16 Dose: 1 tab Documented by: Furosemide (Lasix) 40 mg IVPUSH DAILY [facility] Last Admin: 08/23/20 08:43 Dose: 40 mg Documented by: Furosemide (Lasix) 40 mg IVPUSH ONETIME STA Stop: 08/22/20 17:04 Last Admin: 08/22/20 17:18 Dose: 40 mg Documented by: Furosemide (Lasix) 20 mg IVPUSH ONETIME ONE Stop: 08/23/20 00:02 Last Admin: 08/23/20 00:19 Dose: 20 mg Documented by: Furosemide (Lasix) 20 mg IVPUSH ONETIME ONE Stop: 08/23/20 03:41 Last Admin: 08/23/20 04:00 Dose: 20 mg Documented by: Furosemide (Lasix) 20 mg IVPUSH ONETIME ONE Stop: 08/24/20 04:08 Last Admin: 08/24/20 04:26 Dose: 20 mg Documented by: Furosemide (Lasix) 40 mg IVPUSH ONETIME ONE Stop: 08/24/20 13:01 Last Admin: 08/24/20 13:30 Dose: 40 mg Documented by: Furosemide (Lasix) 40 mg IVPUSH NOW ONE Stop: 08/25/20 16:01 Last Admin: 08/25/20 16:47 Dose: 40 mg Documented by: Furosemide (Lasix) 40 mg IVPUSH NOW ONE Stop: 08/26/20 17:01 Haloperidol Lactate (Haldol) 5 mg IVPUSH Q6H PRN PRN Reason: Agitation Last Admin: 08/22/20 21:08 Dose: 5 mg Documented by: Haloperidol Lactate (Haldol) 2.5 - 5 mg IVPUSH Q6H [facility] Heparin Sodium (Porcine) (Heparin Lock Flush 100 Units/Ml) Confirm Administered Dose 500 units .ROUTE .STK-MED ONE Stop: 08/23/20 04:22 Last Admin: 08/23/20 04:50 Dose: 500 units Documented by: Hydromorphone HCl (Dilaudid) 0.5 mg IVPUSH ONETIME ONE Stop: 08/20/20 15:48 Last Admin: 08/20/20 16:31 Dose: 0.5 mg Documented by: Hydromorphone HCl (Dilaudid) 1 mg IVPUSH ONETIME ONE Stop: 08/20/20 17:38 Last Admin: 08/20/20 17:52 Dose: 1 mg Documented by: Hydromorphone HCl (Dilaudid) 1 mg IVPUSH ONETIME ONE Stop: 08/20/20 21:04 Last Admin: 08/20/20 21:23 Dose: 1 mg Documented by: Sodium Chloride (Normal Saline) 1,000 mls @ 200 mls/hr IV ASDIRECTED [facility] Last Admin: 08/20/20 18:17 Dose: 999 mls/hr Documented by: Sodium Chloride (Normal Saline) 80 mls @ 3.5 mls/sec IV ASDIRECTED [facility] Stop: 08/20/20 16:01 Last Admin: 08/20/20 16:50 Dose: 3.5 mls/sec Documented by: Potassium Chloride 20 meq/ (Premix) 100 mls @ 50 mls/hr IV ONETIME ONE Stop: 08/20/20 19:29 Last Admin: 08/20/20 17:51 Dose: 50 mls/hr Documented by: Sodium Chloride (Normal Saline) 1,000 mls @ 999 mls/hr IV ASDIRECTED [facility] Sodium Chloride (Normal Saline) 1,000 mls @ 25 mls/hr IV ASDIRECTED [facility] Last Admin: 08/22/20 06:50 Dose: 125 mls/hr Documented by: Ciprofloxacin/Dextrose 400 mg/ (Premix) 200 mls @ 200 mls/hr IV Q12H [facility] Last Admin: 08/23/20 08:11 Dose: 200 mls/hr Documented by: Metronidazole 500 mg/ Premix 100 mls @ 100 mls/hr IV Q8H [facility] Last Admin: 08/21/20 08:54 Dose: Not Given Documented by: Ciprofloxacin/Dextrose 400 mg/ (Premix) 200 mls @ 200 mls/hr IV ONETIME ONE Stop: 08/20/20 23:44 Last Admin: 08/20/20 23:16 Dose: 200 mls/hr Documented by: Potassium Chloride 40 meq/ (Premix) 100 mls @ 25 mls/hr IV ONETIME ONE Stop: 08/21/20 09:40 Last Admin: 08/21/20 05:59 Dose: 25 mls/hr Documented by: Potassium Chloride 20 meq/ (Premix) 100 mls @ 50 mls/hr IV ONETIME ONE Stop: 08/22/20 11:29 Last Admin: 08/22/20 10:18 Dose: 50 mls/hr Documented by: Potassium Chloride 40 meq/ (Premix) 100 mls @ 25 mls/hr IV ONETIME ONE Stop: 08/23/20 14:29 Last Admin: 08/23/20 10:06 Dose: 25 mls/hr Documented by: Magnesium Sulfate 2 gm/ Premix 50 mls @ 25 mls/hr IV ONETIME ONE Stop: 08/23/20 12:29 Last Admin: 08/23/20 10:05 Dose: 25 mls/hr Documented by: Vancomycin HCl 1.2 gm/ Sodium (Chloride) 250 mls @ 167 mls/hr IV Q12H [facility] Last Admin: 08/24/20 21:56 Dose: 167 mls/hr Documented by: Iopamidol (Isovue-300 (61%)) 102 ml IV ONETIME ONE Stop: 08/20/20 15:54 Last Admin: 08/20/20 16:50 Dose: 102 ml Documented by: Methylprednisolone Sodium Succinate (Solu-Medrol) 40 mg IVPUSH Q8H [facility] Last Admin: 08/26/20 15:40 Dose: 40 mg Documented by: Methylprednisolone Sodium Succinate (Solu-Medrol) 40 mg IVPUSH ONETIME ONE Stop: 08/20/20 23:01 Last Admin: 08/20/20 23:09 Dose: 40 mg Documented by: Potassium Gluconate (1 TabPom) 1 tab PO BID [facility] Last Admin: 08/23/20 20:08 Dose: Not Given Documented by: Ondansetron HCl (Zofran) 4 mg IVPUSH ONETIME ONE Stop: 08/20/20 16:29 Last Admin: 08/20/20 17:13 Dose: 4 mg Documented by: Pantoprazole Sodium (Protonix Iv) 40 mg IV Q12H [facility] Last Admin: 08/24/20 11:41 Dose: 40 mg Documented by: Potassium Chloride (Klor-Con M20) 40 meq PO ONETIME ONE Stop: 08/23/20 10:01 Last Admin: 08/23/20 10:19 Dose: 40 meq Documented by: Potassium Chloride (Klor-Con M20) 40 meq PO ONETIME ONE Stop: 08/25/20 08:31 Last Admin: 08/25/20 08:49 Dose: 40 meq Documented by: Potassium Chloride (Klor-Con M20) 40 meq PO ONETIME ONE Stop: 08/25/20 15:31 Last Admin: 08/25/20 16:02 Dose: 40 meq Documented by: Sodium Chloride (Saline Flush) 10 ml FLUSH ONETIME ONE Stop: 08/20/20 15:54 Last Admin: 08/20/20 16:50 Dose: 10 ml Documented by: - Exam Quality Assessment: Supplemental Oxygen, DVT Prophylaxis General: Alert, Oriented, Cooperative, Moderate Distress Lungs: Decreased Breath Sounds, Rhonchi, Wheezing. No: Crackles, Rales Cardiovascular: Regular Rate, Regular Rhythm, No Murmurs GI/Abdominal Exam: Soft, Non-Tender, No Organomegaly, No Distention Back Exam: Normal Inspection, Full Range of Motion Extremities: Non-Tender, Pedal Edema Sepsis Event Note - Evaluation Sepsis Screening Result: No Definite Risk - Focused Exam Vital Signs: Vital Signs Temp Pulse Pulse Resp BP BP Pulse Ox 08/26/20 17:02 61 107/62 08/26/20 16:00 61 19 107/62 97 08/26/20 15:00 63 12 119/65 95 08/26/20 14:00 61 12 131/70 95 08/26/20 13:10 67 20 130/73 95 08/26/20 13:00 62 12 130/73 95 08/26/20 12:00 67 14 121/81 97 08/26/20 11:00 97.4 F 69 14 112/60 97 08/26/20 10:00 65 13 165/57 H 97 08/26/20 09:00 86 24 H 144/66 H 96 08/26/20 08:15 98.1 F 69 20 136/75 99 08/26/20 08:05 162/73 H 08/26/20 08:02 162/73 H 08/26/20 07:56 70 132/67 08/26/20 07:49 98.1 F 72 20 96 08/26/20 06:30 20 99 08/26/20 06:00 66 16 138/69 99 - Problem List Review Problem List Initiated/Reviewed/Updated: Yes - My Orders Last 24 Hours: My Active Orders 08/25/20 22:00 Vancomycin 1.2 gm Sodium Chloride 0.9% [Normal Saline] 250 ml IV Q24H 08/26/20 17:00 methylPREDNISolone Sod Succ [Solu-MEDROL] 40 mg IVPUSH Q24H 08/27/20 05:00 BASIC METABOLIC PANEL,BMP [CHEM] Timed - Plan Plan:: ASSESSMENT AND PLAN Colitis with rectal bleeding. and abdominal pain. CT scan abdomen-pelvis shows prominent colitis extending from the cecum through the proximal sigmoid colon, sparing the distal sigmoid colon and rectum. see full report. Abdominal pain has improved with improvement of colitis noted on CT scan. Abdominal pain has essentially resolved and diarrhea is significantly improved -Pain and nausea management -IV Solu-medrol 40 mg every 24 hours -IV Flagyl 500mg every 8 hours - Pain control Bilateral pneumonia-Viral versus bacterial, white blood cell count is now within normal range -Blood cultures pending -IV vancomycin and meropenem pending culture results Hypoxic respiratory failure-secondary to bilateral pneumonia. Continues to require use of BiPAP, borderline oxygenation. Oxygenation and shortness of breath have improved modestly over the last 24 hours -Furosemide 40 mg IV today -Supplemental oxygen as needed -Noninvasive positive pressure ventilation Hypertension -continue outpatient medications in am Chronic pancreatitis- amylase and lipase are normal range -continue outpatient medication Maintenance issues - - DVT prophylaxis -SCD - GI prophylaxis -IV PPI Protonix 40 mg every 12 hours - Nutrition -full liquid - Colon catheter -not indicated at this time CODE STATUS -full code Admission justification -this patient will be admitted for inpatient services and is medically appropriate meeting medical necessity for inpatient admission as outlined in my documentation. I reasonably expect the patient will require inpatient services that span a period time over 2 midnights. I reasonably expect this patient to be discharged or transferred within 96 hours [facility]. Disposition -I would anticipate discharge home after the hospital stay Primary care physician -Dr. Nash
[2020-08-26] MEDS: Mirtazapine 15 MG Tab PO SCH (21:20)
[2020-08-26] MEDS: Vancomycin 1.2 GM in Sodium Chloride 0.9% 250 ML IV SCH (21:20)
[2020-08-27] MEDS: HYDROmorphone 1 MG/ML Syringe IVPUSH PRN ×3 (01:03→10:45)
[2020-08-27] MEDS: Meropenem 1 GM in Sodium Chloride 0.9% 100 ML IV SCH ×3 (01:16→17:33)
[2020-08-27] MEDS: Mirtazapine 15 MG Tab PO SCH ×2 (01:16→20:35)
[2020-08-27] MEDS: metroNIDAZOLE/Normal Saline 500 MG in Premix Bag 1 BAG IV SCH ×3 (02:24→18:05)
[2020-08-27] MEDS: Pantoprazole 40 MG Vial IV SCH ×2 (07:39→09:09)
[2020-08-27] MEDS: Amylase/Lipase/Protease 12,000 Unit Cap.CR PO SCH ×3 (07:43→16:13)
[2020-08-27] MEDS: Carvedilol 3.125 MG Tab PO SCH ×2 (07:43→16:13)
[2020-08-27] MEDS: amLODIPine 5 MG Tab PO SCH ×2 (07:46→09:07)
[2020-08-27] MEDS: Potassium Chloride 10 MEQ Cap.ER PO SCH ×2 (07:47→09:07)
[2020-08-27] MEDS: Losartan 50 MG Tab PO SCH ×2 (07:47→09:08)
[2020-08-27] MEDS: Magnesium Oxide 400 MG Tab PO SCH ×3 (07:48→20:34)
[2020-08-27] MEDS: Lactobacillus Rhamnosus GG (Probiotic) Cap PO SCH ×3 (07:48→20:34)
[2020-08-27] MEDS: Acetaminophen/HYDROcodone 325-5 MG Tab PO PRN ×4 (07:58→22:22)
[2020-08-27] MEDS ORDERED: Potassium Chloride 20 MEQ Tab.ER PO ONE (08:30)
[2020-08-27] MEDS ORDERED: Furosemide 40 MG/4 ML VIAL IVPUSH ONE (08:30)
[2020-08-27] MEDS: CYCLOSPORINE EYEBOTH SCH ×2 (09:07→21:14)
[2020-08-27] MEDS ORDERED: Potassium Chloride 10 MEQ Cap.ER PO ONE ×2 (10:30→13:30)
--- NOTE | 2020-08-27 14:53 | PCM.PN ---
- General Info Date of Service: 08/27/20 Subjective Update: Ms. Ma has shown evidence of further improvement in her respiratory status over the last 24 hours. She continues to require use of the noninvasive positive pressure ventilation but has required less supplemental oxygen to maintain adequate saturations. She does get short of breath with minimal exertion and also desaturates. Abdominal pain seems to be improving as is her diarrhea. Functional Status: Reports: Tolerating Diet, Urinating. Denies: Ambulating - Review of Systems General: Reports: Weakness, Fatigue. Denies: Fever, Chills Pulmonary: Reports: Shortness of Breath, Cough, Wheezing. Denies: Pleuritic Chest Pain, Sputum, Hemoptysis Cardiovascular: Reports: Dyspnea on Exertion, Edema. Denies: Chest Pain, Palpitations, Orthopnea, PND, Lightheadedness Gastrointestinal: Reports: Abdominal Pain, Diarrhea. Denies: Difficulty Swallowing, Hematochezia, Melena, Nausea, Vomiting Genitourinary: Reports: No Symptoms - Patient Data Vitals - Most Recent: Last Vital Signs Temp 95.6 F L 08/27/20 07:00 Pulse 69 08/27/20 14:00 Resp 13 08/27/20 14:00 BP 125/65 08/27/20 14:00 Pulse Ox 91 L 08/27/20 14:00 Weight - Most Recent: 163 lb I&O - Last 24 Hours: Intake & Output 08/26/20 08/27/20 08/27/20 22:59 06:59 14:59 Intake Total 200 1000 200 Output Total 5975 321 9681 Balance -1000 250 -1650 Lab Results Last 24 Hours: Laboratory Results - last 24 hr 08/27/20 Range/Units 06:00 Sodium 139 L (140-148) mmol/L Potassium 3.4 L (3.6-5.2) mmol/L Chloride 102 (100-108) mmol/L Carbon Dioxide 32 (21-32) mmol/L Anion Gap 8.4 (5.0-14.0) mmol/L BUN 20 H (7-18) mg/dL Creatinine 1.1 H (0.6-1.0) mg/dL Est Cr Clr Drug Dosing 49.55 mL/min Estimated GFR (MDRD) 51 L (>60) Glucose 211 H (74-106) mg/dL Calcium 9.4 (8.5-10.1) mg/dL Alberto Results Last 24 Hours: Microbiology 08/23/20 09:35 Aerobic Blood Culture - Preliminary Blood - Arterial Line - Direct Stick NO GROWTH AFTER 4 DAYS Anaerobic Blood Culture - Preliminary NO GROWTH AFTER 4 DAYS 08/23/20 09:30 Aerobic Blood Culture - Preliminary Blood - Arm, Left NO GROWTH AFTER 4 DAYS Anaerobic Blood Culture - Preliminary NO GROWTH AFTER 4 DAYS Med Orders - Current: Current Medications Hydrocodone Bitart/Acetaminophen (Edna 325-5 Mg) 2 tab PO Q4H PRN PRN Reason: Pain Last Admin: 08/27/20 13:40 Dose: 2 tab Documented by: Albuterol (Proventil Neb Soln) 2.5 mg NEB Q4H PRN PRN Reason: Shortness Of Breath/wheezing Last Admin: 08/22/20 23:34 Dose: 2.5 mg Documented by: Amlodipine Besylate (Norvasc) 10 mg PO DAILY [facility] Last Admin: 08/27/20 09:07 Dose: Not Given Documented by: Lipase/Protease/Amylase (Laquita Hilario 12,000 Units) 6 cap PO TIDAC [facility] Last Admin: 08/27/20 11:57 Dose: 6 cap Documented by: Carvedilol (Coreg) 6.25 mg PO BIDMEALS [facility] Last Admin: 08/27/20 07:43 Dose: 6.25 mg Documented by: Haloperidol Lactate (Haldol) 2.5 - 5 mg IVPUSH Q6H PRN PRN Reason: Agitation Last Admin: 08/25/20 20:45 Dose: 2.5 mg Documented by: Heparin Sodium (Porcine) (Heparin Lock Flush 100 Units/Ml) 500 units FLUSH ASDIRECTED PRN PRN Reason: flush Last Admin: 08/24/20 04:30 Dose: 500 units Documented by: Metronidazole 500 mg/ Premix 100 mls @ 100 mls/hr IV Q8H [facility] Last Admin: 08/27/20 10:03 Dose: 100 mls/hr Documented by: Meropenem 1 gm/ Sodium (Chloride) 100 mls @ 200 mls/hr IV Q8H [facility] Last Admin: 08/27/20 11:11 Dose: 200 mls/hr Documented by: Vancomycin HCl 1.2 gm/ Sodium (Chloride) 250 mls @ 167 mls/hr IV Q24H [facility] Last Admin: 08/26/20 21:20 Dose: 167 mls/hr Documented by: Lactobacillus Rhamnosus (Culturelle) 1 cap PO BID [facility] Last Admin: 08/27/20 09:07 Dose: Not Given Documented by: Losartan Potassium (Cozaar) 100 mg PO DAILY [facility] Last Admin: 08/27/20 09:08 Dose: Not Given Documented by: Magnesium Oxide (Magnesium Oxide) 400 mg PO BID [facility] Last Admin: 08/27/20 09:07 Dose: Not Given Documented by: Methylprednisolone Sodium Succinate (Solu-Medrol) 40 mg IVPUSH Q24H [facility] Mirtazapine (Remeron) 15 mg PO BEDTIME [facility] Last Admin: 08/27/20 01:16 Dose: 15 mg Documented by: Cyclosporine ( Restasis) 1 Drop Pom 1 drop EYEBOTH BID [facility] Last Admin: 08/27/20 09:07 Dose: Not Given Documented by: Ondansetron HCl (Zofran Odt) 4 mg PO Q4H PRN PRN Reason: Nausea/Vomiting Last Admin: 08/21/20 15:27 Dose: 4 mg Documented by: Pantoprazole Sodium (Protonix Iv) 40 mg IV DAILY [facility] Last Admin: 08/27/20 09:09 Dose: Not Given Documented by: Potassium Chloride (Potassium Chloride) 10 meq PO DAILY [facility] Last Admin: 08/27/20 09:07 Dose: Not Given Documented by: Discontinued Medications Hydrocodone Bitart/Acetaminophen (Edna 325-5 Mg) 1 tab PO Q4H PRN PRN Reason: Abdominal Pain Last Admin: 08/21/20 10:16 Dose: 1 tab Documented by: Hydrocodone Bitart/Acetaminophen (Edna 325-5 Mg) 1 - 2 tab PO Q6H PRN PRN Reason: Pain Last Admin: 08/27/20 07:58 Dose: 1 tab Documented by: Furosemide (Lasix) 40 mg IVPUSH DAILY [facility] Last Admin: 08/23/20 08:43 Dose: 40 mg Documented by: Furosemide (Lasix) 40 mg IVPUSH ONETIME STA Stop: 08/22/20 17:04 Last Admin: 08/22/20 17:18 Dose: 40 mg Documented by: Furosemide (Lasix) 20 mg IVPUSH ONETIME ONE Stop: 08/23/20 00:02 Last Admin: 08/23/20 00:19 Dose: 20 mg Documented by: Furosemide (Lasix) 20 mg IVPUSH ONETIME ONE Stop: 08/23/20 03:41 Last Admin: 08/23/20 04:00 Dose: 20 mg Documented by: Furosemide (Lasix) 20 mg IVPUSH ONETIME ONE Stop: 08/24/20 04:08 Last Admin: 08/24/20 04:26 Dose: 20 mg Documented by: Furosemide (Lasix) 40 mg IVPUSH ONETIME ONE Stop: 08/24/20 13:01 Last Admin: 08/24/20 13:30 Dose: 40 mg Documented by: Furosemide (Lasix) 40 mg IVPUSH NOW ONE Stop: 08/25/20 16:01 Last Admin: 08/25/20 16:47 Dose: 40 mg Documented by: Furosemide (Lasix) 40 mg IVPUSH NOW ONE Stop: 08/26/20 17:01 Last Admin: 08/26/20 17:51 Dose: 40 mg Documented by: Furosemide (Lasix) 40 mg IVPUSH NOW ONE Stop: 08/27/20 08:31 Last Admin: 08/27/20 10:35 Dose: 40 mg Documented by: Haloperidol Lactate (Haldol) 5 mg IVPUSH Q6H PRN PRN Reason: Agitation Last Admin: 08/22/20 21:08 Dose: 5 mg Documented by: Haloperidol Lactate (Haldol) 2.5 - 5 mg IVPUSH Q6H [facility] Heparin Sodium (Porcine) (Heparin Lock Flush 100 Units/Ml) Confirm Administered Dose 500 units .ROUTE .STK-MED ONE Stop: 08/23/20 04:22 Last Admin: 08/23/20 04:50 Dose: 500 units Documented by: Hydromorphone HCl (Dilaudid) 0.5 mg IVPUSH ONETIME ONE Stop: 08/20/20 15:48 Last Admin: 08/20/20 16:31 Dose: 0.5 mg Documented by: Hydromorphone HCl (Dilaudid) 1 mg IVPUSH ONETIME ONE Stop: 08/20/20 17:38 Last Admin: 08/20/20 17:52 Dose: 1 mg Documented by: Hydromorphone HCl (Dilaudid) 1 mg IVPUSH ONETIME ONE Stop: 08/20/20 21:04 Last Admin: 08/20/20 21:23 Dose: 1 mg Documented by: Hydromorphone HCl (Dilaudid) 1 mg IVPUSH Q4H PRN PRN Reason: Abdominal Pain Last Admin: 08/27/20 10:45 Dose: 1 mg Documented by: Sodium Chloride (Normal Saline) 1,000 mls @ 200 mls/hr IV ASDIRECTED [facility] Last Admin: 08/20/20 18:17 Dose: 999 mls/hr Documented by: Sodium Chloride (Normal Saline) 80 mls @ 3.5 mls/sec IV ASDIRECTED [facility] Stop: 08/20/20 16:01 Last Admin: 08/20/20 16:50 Dose: 3.5 mls/sec Documented by: Potassium Chloride 20 meq/ (Premix) 100 mls @ 50 mls/hr IV ONETIME ONE Stop: 08/20/20 19:29 Last Admin: 08/20/20 17:51 Dose: 50 mls/hr Documented by: Sodium Chloride (Normal Saline) 1,000 mls @ 999 mls/hr IV ASDIRECTED [facility] Sodium Chloride (Normal Saline) 1,000 mls @ 25 mls/hr IV ASDIRECTED [facility] Last Admin: 08/22/20 06:50 Dose: 125 mls/hr Documented by: Ciprofloxacin/Dextrose 400 mg/ (Premix) 200 mls @ 200 mls/hr IV Q12H [facility] Last Admin: 08/23/20 08:11 Dose: 200 mls/hr Documented by: Metronidazole 500 mg/ Premix 100 mls @ 100 mls/hr IV Q8H [facility] Last Admin: 08/21/20 08:54 Dose: Not Given Documented by: Ciprofloxacin/Dextrose 400 mg/ (Premix) 200 mls @ 200 mls/hr IV ONETIME ONE Stop: 08/20/20 23:44 Last Admin: 08/20/20 23:16 Dose: 200 mls/hr Documented by: Potassium Chloride 40 meq/ (Premix) 100 mls @ 25 mls/hr IV ONETIME ONE Stop: 08/21/20 09:40 Last Admin: 08/21/20 05:59 Dose: 25 mls/hr Documented by: Potassium Chloride 20 meq/ (Premix) 100 mls @ 50 mls/hr IV ONETIME ONE Stop: 08/22/20 11:29 Last Admin: 08/22/20 10:18 Dose: 50 mls/hr Documented by: Potassium Chloride 40 meq/ (Premix) 100 mls @ 25 mls/hr IV ONETIME ONE Stop: 08/23/20 14:29 Last Admin: 08/23/20 10:06 Dose: 25 mls/hr Documented by: Magnesium Sulfate 2 gm/ Premix 50 mls @ 25 mls/hr IV ONETIME ONE Stop: 08/23/20 12:29 Last Admin: 08/23/20 10:05 Dose: 25 mls/hr Documented by: Vancomycin HCl 1.2 gm/ Sodium (Chloride) 250 mls @ 167 mls/hr IV Q12H [facility] Last Admin: 08/24/20 21:56 Dose: 167 mls/hr Documented by: Iopamidol (Isovue-300 (61%)) 102 ml IV ONETIME ONE Stop: 08/20/20 15:54 Last Admin: 08/20/20 16:50 Dose: 102 ml Documented by: Lorazepam (Ativan) 1 mg IVPUSH Q4H PRN PRN Reason: Anxiety Last Admin: 08/22/20 18:35 Dose: 1 mg Documented by: Methylprednisolone Sodium Succinate (Solu-Medrol) 40 mg IVPUSH Q8H [facility] Last Admin: 08/26/20 15:40 Dose: 40 mg Documented by: Methylprednisolone Sodium Succinate (Solu-Medrol) 40 mg IVPUSH ONETIME ONE Stop: 08/20/20 23:01 Last Admin: 08/20/20 23:09 Dose: 40 mg Documented by: Potassium Gluconate (1 TabPom) 1 tab PO BID [facility] Last Admin: 08/23/20 20:08 Dose: Not Given Documented by: Ondansetron HCl (Zofran) 4 mg IVPUSH ONETIME ONE Stop: 08/20/20 16:29 Last Admin: 08/20/20 17:13 Dose: 4 mg Documented by: Pantoprazole Sodium (Protonix Iv) 40 mg IV Q12H [facility] Last Admin: 08/24/20 11:41 Dose: 40 mg Documented by: Potassium Chloride (Klor-Con M20) 40 meq PO ONETIME ONE Stop: 08/23/20 10:01 Last Admin: 08/23/20 10:19 Dose: 40 meq Documented by: Potassium Chloride (Klor-Con M20) 40 meq PO ONETIME ONE Stop: 08/25/20 08:31 Last Admin: 08/25/20 08:49 Dose: 40 meq Documented by: Potassium Chloride (Klor-Con M20) 40 meq PO ONETIME ONE Stop: 08/25/20 15:31 Last Admin: 08/25/20 16:02 Dose: 40 meq Documented by: Potassium Chloride (Potassium Chloride) 40 meq PO ONETIME ONE Stop: 08/27/20 10:31 Last Admin: 08/27/20 10:37 Dose: 40 meq Documented by: Potassium Chloride (Potassium Chloride) 40 meq PO ONETIME ONE Stop: 08/27/20 13:31 Last Admin: 08/27/20 13:42 Dose: 40 meq Documented by: Sodium Chloride (Saline Flush) 10 ml FLUSH ONETIME ONE Stop: 08/20/20 15:54 Last Admin: 08/20/20 16:50 Dose: 10 ml Documented by: - Exam Quality Assessment: Supplemental Oxygen, DVT Prophylaxis General: Alert, Oriented, Cooperative, Moderate Distress Lungs: Decreased Breath Sounds, Rhonchi, Wheezing. No: Crackles, Rales Cardiovascular: Regular Rate, Regular Rhythm, No Murmurs GI/Abdominal Exam: Soft, No Organomegaly, Tender. No: Distended, Guarding, Rigid, Rebound Back Exam: Normal Inspection, Full Range of Motion Extremities: Non-Tender, Pedal Edema Sepsis Event Note - Evaluation Sepsis Screening Result: No Definite Risk - Focused Exam Vital Signs: Vital Signs Temp Pulse Pulse Resp BP BP Pulse Ox 08/27/20 14:00 69 13 125/65 91 L 08/27/20 13:00 62 13 113/57 L 95 08/27/20 12:00 16 130/71 94 L 08/27/20 11:00 64 16 122/75 96 08/27/20 10:00 64 12 126/78 96 08/27/20 09:00 69 10 L 89 L 08/27/20 08:00 65 13 121/58 L 90 L 08/27/20 07:47 110/86 08/27/20 07:46 110/86 08/27/20 07:43 67 110/86 08/27/20 07:00 95.6 F L 60 12 121/58 L 90 L 08/27/20 06:00 13 131/75 95 08/27/20 05:00 97.3 F 12 95 08/27/20 04:00 12 130/65 93 L 08/27/20 03:00 10 L 129/52 L 94 L - Problem List Review Problem List Initiated/Reviewed/Updated: Yes - My Orders Last 24 Hours: My Active Orders 08/27/20 13:08 Acetaminophen/HYDROcodone [Edna 325-5 MG] 2 tab PO Q4H PRN 08/27/20 16:00 methylPREDNISolone Sod Succ [Solu-MEDROL] 40 mg IVPUSH Q24H 08/27/20 21:45 VANCOMYCIN TROUGH [CHEM] Routine 08/28/20 05:00 BASIC METABOLIC PANEL,BMP [CHEM] Timed - Plan Plan:: ASSESSMENT AND PLAN Colitis with rectal bleeding. and abdominal pain. CT scan abdomen-pelvis shows prominent colitis extending from the cecum through the proximal sigmoid colon, sparing the distal sigmoid colon and rectum. see full report. Abdominal pain has improved with improvement of colitis noted on CT scan. Abdominal pain has essentially resolved and diarrhea is significantly improved -Pain and nausea management -IV Solu-medrol 40 mg every 24 hours -IV Flagyl 500mg every 8 hours - Pain control Bilateral pneumonia-Viral versus bacterial, white blood cell count is now within normal range -Blood cultures pending -IV vancomycin and meropenem pending culture results Hypoxic respiratory failure-secondary to bilateral pneumonia. Continues to require use of BiPAP, oxygenation has improved over the past 2 days -Furosemide 40 mg IV today -Supplemental oxygen as needed -Noninvasive positive pressure ventilation Hypertension -continue outpatient medications in am Chronic pancreatitis- amylase and lipase are normal range -continue outpatient medication Maintenance issues - - DVT prophylaxis -SCD - GI prophylaxis -IV PPI Protonix 40 mg every 12 hours - Nutrition -full liquid - Colon catheter -not indicated at this time CODE STATUS -full code Admission justification -this patient will be admitted for inpatient services and is medically appropriate meeting medical necessity for inpatient admission as outlined in my documentation. I reasonably expect the patient will require inpatient services that span a period time over 2 midnights. I reasonably expect this patient to be discharged or transferred within 96 hours after admission to the [facility]. Disposition -I would anticipate discharge home after the hospital stay Primary care physician -Dr. Nash
[2020-08-27] MEDS: methylPREDNISolone Sodium Succinate 40 MG/1 ML SDV IVPUSH SCH (16:14)
[2020-08-28] MEDS: Vancomycin 1.2 GM in Sodium Chloride 0.9% 250 ML IV SCH (00:25)
[2020-08-28] MEDS: Meropenem 1 GM in Sodium Chloride 0.9% 100 ML IV SCH ×3 (01:30→17:37)
[2020-08-28] MEDS: Acetaminophen/HYDROcodone 325-5 MG Tab PO PRN ×5 (02:01→20:43)
[2020-08-28] MEDS: metroNIDAZOLE/Normal Saline 500 MG in Premix Bag 1 BAG IV SCH ×3 (02:05→18:19)
[2020-08-28] MEDS: Amylase/Lipase/Protease 12,000 Unit Cap.CR PO SCH ×3 (08:31→16:35)
[2020-08-28] MEDS: Losartan 50 MG Tab PO SCH (08:32)
[2020-08-28] MEDS: Lactobacillus Rhamnosus GG (Probiotic) Cap PO SCH ×2 (08:33→20:42)
[2020-08-28] MEDS: Carvedilol 3.125 MG Tab PO SCH ×2 (08:33→16:34)
[2020-08-28] MEDS: CYCLOSPORINE EYEBOTH SCH ×2 (08:34→21:13)
[2020-08-28] MEDS: Magnesium Oxide 400 MG Tab PO SCH ×2 (08:34→21:15)
[2020-08-28] MEDS: amLODIPine 5 MG Tab PO SCH (08:34)
[2020-08-28] MEDS: Pantoprazole 40 MG Vial IV SCH (08:35)
[2020-08-28] MEDS: Potassium Chloride 10 MEQ Cap.ER PO SCH (08:35)
[2020-08-28] MEDS ORDERED: Furosemide 40 MG/4 ML VIAL IVPUSH ONE ×2 (11:30→19:30)
--- NOTE | 2020-08-28 12:31 | PCM.PN ---
- General Info Date of Service: 08/28/20 Subjective Update: Ms. Ma has continued to show daily improvement in respiratory status and oxygenation. She has tolerated being off of the BiPAP for prolonged periods and is requiring less supplemental oxygen via nasal cannula. She continues to experience pain in both legs related to peripheral edema. Functional Status: Reports: Tolerating Diet, Urinating - Review of Systems General: Reports: Weakness, Fatigue. Denies: Fever, Chills Pulmonary: Reports: Shortness of Breath, Cough, Wheezing. Denies: Pleuritic Chest Pain, Sputum, Hemoptysis Cardiovascular: Reports: Dyspnea on Exertion, Edema. Denies: Chest Pain, Palpitations, Orthopnea, PND, Lightheadedness Gastrointestinal: Reports: No Symptoms Genitourinary: Reports: No Symptoms - Patient Data Vitals - Most Recent: Last Vital Signs Temp 96 F L 08/28/20 08:00 Pulse 84 08/28/20 11:00 Resp 14 08/28/20 11:00 BP 117/65 08/28/20 11:00 Pulse Ox 89 L 08/28/20 11:00 Weight - Most Recent: 163 lb I&O - Last 24 Hours: Intake & Output 08/27/20 08/28/20 08/28/20 22:59 06:59 14:59 Intake Total 440 720 200 Output Total 950 750 100 Balance -510 -30 100 Lab Results Last 24 Hours: Laboratory Results - last 24 hr 08/27/20 08/28/20 Range/Units 21:48 06:05 Sodium 136 L (140-148) mmol/L Potassium 4.0 (3.6-5.2) mmol/L Chloride 101 (100-108) mmol/L Carbon Dioxide 30 (21-32) mmol/L Anion Gap 9.0 (5.0-14.0) mmol/L BUN 26 H (7-18) mg/dL Creatinine 1.2 H (0.6-1.0) mg/dL Est Cr Clr Drug Dosing 45.42 mL/min Estimated GFR (MDRD) 46 L (>60) Glucose 350 H (74-106) mg/dL Calcium 9.7 (8.5-10.1) mg/dL Vancomycin Trough 20.2 H (10.0-20.0) ug/mL Alberto Results Last 24 Hours: Microbiology 08/23/20 09:35 Aerobic Blood Culture - Final Blood - Arterial Line - Direct Stick NO GROWTH AFTER 5 DAYS Anaerobic Blood Culture - Final NO GROWTH AFTER 5 DAYS 08/23/20 09:30 Aerobic Blood Culture - Final Blood - Arm, Left NO GROWTH AFTER 5 DAYS Anaerobic Blood Culture - Final NO GROWTH AFTER 5 DAYS Med Orders - Current: Current Medications Hydrocodone Bitart/Acetaminophen ([place] 325-5 Mg) 2 tab PO Q4H PRN PRN Reason: Pain Last Admin: 08/28/20 08:29 Dose: 2 tab Documented by: Albuterol (Proventil Neb Soln) 2.5 mg NEB Q4H PRN PRN Reason: Shortness Of Breath/wheezing Last Admin: 08/22/20 23:34 Dose: 2.5 mg Documented by: Amlodipine Besylate (Norvasc) 10 mg PO DAILY [facility] Last Admin: 08/28/20 08:34 Dose: 10 mg Documented by: Lipase/Protease/Amylase (Laquita Hilario 12,000 Units) 6 cap PO TIDAC [facility] Last Admin: 08/28/20 10:58 Dose: 6 cap Documented by: Carvedilol (Coreg) 6.25 mg PO BIDMEALS [facility] Last Admin: 08/28/20 08:33 Dose: 6.25 mg Documented by: Furosemide (Lasix) 40 mg IVPUSH NOW ONE Stop: 08/28/20 19:31 Haloperidol Lactate (Haldol) 2.5 - 5 mg IVPUSH Q6H PRN PRN Reason: Agitation Last Admin: 08/25/20 20:45 Dose: 2.5 mg Documented by: Heparin Sodium (Porcine) (Heparin Lock Flush 100 Units/Ml) 500 units FLUSH ASDIRECTED PRN PRN Reason: flush Last Admin: 08/24/20 04:30 Dose: 500 units Documented by: Metronidazole 500 mg/ Premix 100 mls @ 100 mls/hr IV Q8H [facility] Stop: 08/28/20 23:59 Last Admin: 08/28/20 11:30 Dose: 100 mls/hr Documented by: Meropenem 1 gm/ Sodium (Chloride) 100 mls @ 200 mls/hr IV Q8H [facility] Last Admin: 08/28/20 10:44 Dose: 200 mls/hr Documented by: Vancomycin HCl 1.1 gm/ Sodium (Chloride) 250 mls @ 167 mls/hr IV Q24H [facility] Lactobacillus Rhamnosus (Culturelle) 1 cap PO BID [facility] Last Admin: 08/28/20 08:33 Dose: 1 cap Documented by: Losartan Potassium (Cozaar) 100 mg PO DAILY [facility] Last Admin: 08/28/20 08:32 Dose: 100 mg Documented by: Magnesium Oxide (Magnesium Oxide) 400 mg PO BID [facility] Last Admin: 08/28/20 08:34 Dose: 400 mg Documented by: Methylprednisolone Sodium Succinate (Solu-Medrol) 40 mg IVPUSH Q24H [facility] Last Admin: 08/27/20 16:14 Dose: 40 mg Documented by: Mirtazapine (Remeron) 15 mg PO BEDTIME [facility] Last Admin: 08/27/20 20:35 Dose: 15 mg Documented by: Cyclosporine ( Restasis) 1 Drop Pom 1 drop EYEBOTH BID [facility] Last Admin: 08/28/20 08:34 Dose: Not Given Documented by: Ondansetron HCl (Zofran Odt) 4 mg PO Q4H PRN PRN Reason: Nausea/Vomiting Last Admin: 08/21/20 15:27 Dose: 4 mg Documented by: Pantoprazole Sodium (Protonix Iv) 40 mg IV DAILY [facility] Last Admin: 08/28/20 08:35 Dose: 40 mg Documented by: Potassium Chloride (Potassium Chloride) 10 meq PO DAILY [facility] Last Admin: 08/28/20 08:35 Dose: 10 meq Documented by: Discontinued Medications Hydrocodone Bitart/Acetaminophen ([place] 325-5 Mg) 1 tab PO Q4H PRN PRN Reason: Abdominal Pain Last Admin: 08/21/20 10:16 Dose: 1 tab Documented by: Hydrocodone Bitart/Acetaminophen ([place] 325-5 Mg) 1 - 2 tab PO Q6H PRN PRN Reason: Pain Last Admin: 08/27/20 07:58 Dose: 1 tab Documented by: Furosemide (Lasix) 40 mg IVPUSH DAILY [facility] Last Admin: 08/23/20 08:43 Dose: 40 mg Documented by: Furosemide (Lasix) 40 mg IVPUSH ONETIME STA Stop: 08/22/20 17:04 Last Admin: 08/22/20 17:18 Dose: 40 mg Documented by: Furosemide (Lasix) 20 mg IVPUSH ONETIME ONE Stop: 08/23/20 00:02 Last Admin: 08/23/20 00:19 Dose: 20 mg Documented by: Furosemide (Lasix) 20 mg IVPUSH ONETIME ONE Stop: 08/23/20 03:41 Last Admin: 08/23/20 04:00 Dose: 20 mg Documented by: Furosemide (Lasix) 20 mg IVPUSH ONETIME ONE Stop: 08/24/20 04:08 Last Admin: 08/24/20 04:26 Dose: 20 mg Documented by: Furosemide (Lasix) 40 mg IVPUSH ONETIME ONE Stop: 08/24/20 13:01 Last Admin: 08/24/20 13:30 Dose: 40 mg Documented by: Furosemide (Lasix) 40 mg IVPUSH NOW ONE Stop: 08/25/20 16:01 Last Admin: 08/25/20 16:47 Dose: 40 mg Documented by: Furosemide (Lasix) 40 mg IVPUSH NOW ONE Stop: 08/26/20 17:01 Last Admin: 08/26/20 17:51 Dose: 40 mg Documented by: Furosemide (Lasix) 40 mg IVPUSH NOW ONE Stop: 08/27/20 08:31 Last Admin: 08/27/20 10:35 Dose: 40 mg Documented by: Furosemide (Lasix) 40 mg IVPUSH NOW ONE Stop: 08/28/20 11:31 Last Admin: 08/28/20 11:32 Dose: 40 mg Documented by: Haloperidol Lactate (Haldol) 5 mg IVPUSH Q6H PRN PRN Reason: Agitation Last Admin: 08/22/20 21:08 Dose: 5 mg Documented by: Haloperidol Lactate (Haldol) 2.5 - 5 mg IVPUSH Q6H [facility] Heparin Sodium (Porcine) (Heparin Lock Flush 100 Units/Ml) Confirm Administered Dose 500 units .ROUTE .STK-MED ONE Stop: 08/23/20 04:22 Last Admin: 08/23/20 04:50 Dose: 500 units Documented by: Hydromorphone HCl (Dilaudid) 0.5 mg IVPUSH ONETIME ONE Stop: 08/20/20 15:48 Last Admin: 08/20/20 16:31 Dose: 0.5 mg Documented by: Hydromorphone HCl (Dilaudid) 1 mg IVPUSH ONETIME ONE Stop: 08/20/20 17:38 Last Admin: 08/20/20 17:52 Dose: 1 mg Documented by: Hydromorphone HCl (Dilaudid) 1 mg IVPUSH ONETIME ONE Stop: 08/20/20 21:04 Last Admin: 08/20/20 21:23 Dose: 1 mg Documented by: Hydromorphone HCl (Dilaudid) 1 mg IVPUSH Q4H PRN PRN Reason: Abdominal Pain Last Admin: 08/27/20 10:45 Dose: 1 mg Documented by: Sodium Chloride (Normal Saline) 1,000 mls @ 200 mls/hr IV ASDIRECTED [facility] Last Admin: 08/20/20 18:17 Dose: 999 mls/hr Documented by: Sodium Chloride (Normal Saline) 80 mls @ 3.5 mls/sec IV ASDIRECTED [facility] Stop: 08/20/20 16:01 Last Admin: 08/20/20 16:50 Dose: 3.5 mls/sec Documented by: Potassium Chloride 20 meq/ (Premix) 100 mls @ 50 mls/hr IV ONETIME ONE Stop: 08/20/20 19:29 Last Admin: 08/20/20 17:51 Dose: 50 mls/hr Documented by: Sodium Chloride (Normal Saline) 1,000 mls @ 999 mls/hr IV ASDIRECTED [facility] Sodium Chloride (Normal Saline) 1,000 mls @ 25 mls/hr IV ASDIRECTED [facility] Last Admin: 08/22/20 06:50 Dose: 125 mls/hr Documented by: Ciprofloxacin/Dextrose 400 mg/ (Premix) 200 mls @ 200 mls/hr IV Q12H [facility] Last Admin: 08/23/20 08:11 Dose: 200 mls/hr Documented by: Metronidazole 500 mg/ Premix 100 mls @ 100 mls/hr IV Q8H [facility] Last Admin: 08/21/20 08:54 Dose: Not Given Documented by: Ciprofloxacin/Dextrose 400 mg/ (Premix) 200 mls @ 200 mls/hr IV ONETIME ONE Stop: 08/20/20 23:44 Last Admin: 08/20/20 23:16 Dose: 200 mls/hr Documented by: Potassium Chloride 40 meq/ (Premix) 100 mls @ 25 mls/hr IV ONETIME ONE Stop: 08/21/20 09:40 Last Admin: 08/21/20 05:59 Dose: 25 mls/hr Documented by: Potassium Chloride 20 meq/ (Premix) 100 mls @ 50 mls/hr IV ONETIME ONE Stop: 08/22/20 11:29 Last Admin: 08/22/20 10:18 Dose: 50 mls/hr Documented by: Potassium Chloride 40 meq/ (Premix) 100 mls @ 25 mls/hr IV ONETIME ONE Stop: 08/23/20 14:29 Last Admin: 08/23/20 10:06 Dose: 25 mls/hr Documented by: Magnesium Sulfate 2 gm/ Premix 50 mls @ 25 mls/hr IV ONETIME ONE Stop: 08/23/20 12:29 Last Admin: 08/23/20 10:05 Dose: 25 mls/hr Documented by: Vancomycin HCl 1.2 gm/ Sodium (Chloride) 250 mls @ 167 mls/hr IV Q12H [facility] Last Admin: 08/24/20 21:56 Dose: 167 mls/hr Documented by: Vancomycin HCl 1.2 gm/ Sodium (Chloride) 250 mls @ 167 mls/hr IV Q24H [facility] Last Admin: 08/28/20 00:25 Dose: Not Given Documented by: Iopamidol (Isovue-300 (61%)) 102 ml IV ONETIME ONE Stop: 08/20/20 15:54 Last Admin: 08/20/20 16:50 Dose: 102 ml Documented by: Lorazepam (Ativan) 1 mg IVPUSH Q4H PRN PRN Reason: Anxiety Last Admin: 08/22/20 18:35 Dose: 1 mg Documented by: Methylprednisolone Sodium Succinate (Solu-Medrol) 40 mg IVPUSH Q8H [facility] Last Admin: 08/26/20 15:40 Dose: 40 mg Documented by: Methylprednisolone Sodium Succinate (Solu-Medrol) 40 mg IVPUSH ONETIME ONE Stop: 08/20/20 23:01 Last Admin: 08/20/20 23:09 Dose: 40 mg Documented by: Potassium Gluconate (1 TabPom) 1 tab PO BID [facility] Last Admin: 08/23/20 20:08 Dose: Not Given Documented by: Ondansetron HCl (Zofran) 4 mg IVPUSH ONETIME ONE Stop: 08/20/20 16:29 Last Admin: 08/20/20 17:13 Dose: 4 mg Documented by: Pantoprazole Sodium (Protonix Iv) 40 mg IV Q12H [facility] Last Admin: 08/24/20 11:41 Dose: 40 mg Documented by: Potassium Chloride (Klor-Con M20) 40 meq PO ONETIME ONE Stop: 08/23/20 10:01 Last Admin: 08/23/20 10:19 Dose: 40 meq Documented by: Potassium Chloride (Klor-Con M20) 40 meq PO ONETIME ONE Stop: 08/25/20 08:31 Last Admin: 08/25/20 08:49 Dose: 40 meq Documented by: Potassium Chloride (Klor-Con M20) 40 meq PO ONETIME ONE Stop: 08/25/20 15:31 Last Admin: 08/25/20 16:02 Dose: 40 meq Documented by: Potassium Chloride (Potassium Chloride) 40 meq PO ONETIME ONE Stop: 08/27/20 10:31 Last Admin: 08/27/20 10:37 Dose: 40 meq Documented by: Potassium Chloride (Potassium Chloride) 40 meq PO ONETIME ONE Stop: 08/27/20 13:31 Last Admin: 08/27/20 13:42 Dose: 40 meq Documented by: Sodium Chloride (Saline Flush) 10 ml FLUSH ONETIME ONE Stop: 08/20/20 15:54 Last Admin: 08/20/20 16:50 Dose: 10 ml Documented by: - Exam General: Alert, Oriented, Cooperative, Moderate Distress Lungs: Decreased Breath Sounds, Wheezing. No: Rales, Rhonchi Cardiovascular: Regular Rate, Regular Rhythm, No Murmurs GI/Abdominal Exam: Soft, Non-Tender, No Organomegaly, No Distention Extremities: Non-Tender, Pedal Edema Sepsis Event Note - Evaluation Sepsis Screening Result: No Definite Risk - Focused Exam Vital Signs: Vital Signs Temp Pulse Pulse Resp BP BP Pulse Ox 08/28/20 11:00 84 14 117/65 89 L 08/28/20 10:00 85 20 120/77 95 08/28/20 08:34 113/63 08/28/20 08:33 81 113/63 08/28/20 08:32 113/63 08/28/20 08:00 96 F L 85 20 113/63 90 L 08/28/20 07:00 66 17 108/63 91 L 08/28/20 06:00 15 124/78 93 L 08/28/20 05:00 17 118/69 91 L 08/28/20 04:00 98.3 F 14 129/75 96 08/28/20 03:00 16 123/71 95 08/28/20 02:00 21 H 134/81 94 L 08/28/20 01:00 15 130/79 98 Pulse Ox 08/28/20 11:00 08/28/20 10:00 90 L 08/28/20 08:34 08/28/20 08:33 08/28/20 08:32 08/28/20 08:00 08/28/20 07:00 08/28/20 06:00 08/28/20 05:00 08/28/20 04:00 08/28/20 03:00 08/28/20 02:00 08/28/20 01:00 - Problem List Review Problem List Initiated/Reviewed/Updated: Yes - My Orders Last 24 Hours: My Active Orders 08/27/20 13:08 Acetaminophen/HYDROcodone [[place] 325-5 MG] 2 tab PO Q4H PRN 08/27/20 16:00 methylPREDNISolone Sod Succ [Solu-MEDROL] 40 mg IVPUSH Q24H 08/28/20 11:00 Vancomycin 1.1 gm Sodium Chloride 0.9% [Normal Saline] 250 ml IV Q24H 08/28/20 19:30 Furosemide [Lasix] 40 mg IVPUSH NOW ONE 08/29/20 05:00 BASIC METABOLIC PANEL,BMP [CHEM] Timed - Plan Plan:: ASSESSMENT AND PLAN Colitis with rectal bleeding. and abdominal pain. CT scan abdomen-pelvis shows prominent colitis extending from the cecum through the proximal sigmoid colon, sparing the distal sigmoid colon and rectum. see full report. Abdominal pain has essentially resolved and diarrhea is significantly improved -Pain and nausea management -IV Solu-medrol 40 mg every 24 hours, continue after today's dose -IV Flagyl 500mg every 8 hours - Pain control Bilateral pneumonia-Viral versus bacterial, white blood cell count is now within normal range -Blood cultures pending -IV vancomycin and meropenem pending culture results Hypoxic respiratory failure-secondary to bilateral pneumonia. Oxygenation has improved over the past 2 days -Furosemide 40 mg IV twice today -Supplemental oxygen as needed -Noninvasive positive pressure ventilation Hypertension -continue outpatient medications in am Chronic pancreatitis- amylase and lipase are normal range -continue outpatient medication Maintenance issues - - DVT prophylaxis -SCD - GI prophylaxis -IV PPI Protonix 40 mg every 12 hours - Nutrition -full liquid - Colon catheter -not indicated at this time CODE STATUS -full code Admission justification -this patient will be admitted for inpatient services and is medically appropriate meeting medical necessity for inpatient admission as outlined in my documentation. I reasonably expect the patient will require inpatient services that span a period time over 2 midnights. I reasonably expect this patient to be discharged or transferred within 96 hours after admission to the [facility]. Disposition -I would anticipate discharge home after the hospital stay Primary care physician -Dr. Nash
[2020-08-28] MEDS: Vancomycin 1.1 GM in Sodium Chloride 0.9% 250 ML IV SCH (12:43)
[2020-08-28] MEDS: methylPREDNISolone Sodium Succinate 40 MG/1 ML SDV IVPUSH SCH (16:34)
[2020-08-28] MEDS: Mirtazapine 15 MG Tab PO SCH (20:42)
[2020-08-29] MEDS: Meropenem 1 GM in Sodium Chloride 0.9% 100 ML IV SCH ×3 (01:21→21:27)
[2020-08-29] MEDS: Acetaminophen/HYDROcodone 325-5 MG Tab PO PRN ×4 (01:30→19:39)
[2020-08-29] MEDS ORDERED: Glucagon,Human Recombinant 1 MG Vial IM PRN (05:54)
[2020-08-29] MEDS ORDERED: 50% Dextrose in Water 50 ML Syringe IVPUSH PRN (05:54)
[2020-08-29] MEDS ORDERED: Insulin Lispro 100 Unit/ML 3 ML KwikPen SUBCUT ONE (05:54)
[2020-08-29] MEDS ORDERED: 50% Dextrose in Water 50 ML Syringe IV PRN (08:07)
[2020-08-29] MEDS ORDERED: Glucose Gel 15 GM in 37.5 GM Tube PO PRN (08:07)
[2020-08-29] MEDS ORDERED: Furosemide 40 MG/4 ML VIAL IVPUSH ONE ×2 (08:35→18:00)
[2020-08-29] MEDS: Amylase/Lipase/Protease 12,000 Unit Cap.CR PO SCH ×3 (09:26→17:07)
[2020-08-29] MEDS: Carvedilol 3.125 MG Tab PO SCH ×2 (09:29→17:06)
[2020-08-29] MEDS: Lactobacillus Rhamnosus GG (Probiotic) Cap PO SCH ×2 (09:30→21:15)
[2020-08-29] MEDS: CYCLOSPORINE EYEBOTH SCH ×2 (09:30→21:18)
[2020-08-29] MEDS: Losartan 50 MG Tab PO SCH (09:30)
[2020-08-29] MEDS: Magnesium Oxide 400 MG Tab PO SCH ×2 (09:31→21:15)
[2020-08-29] MEDS: Potassium Chloride 10 MEQ Cap.ER PO SCH (09:31)
[2020-08-29] MEDS: amLODIPine 5 MG Tab PO SCH (09:31)
[2020-08-29] MEDS: Pantoprazole 40 MG Vial IV SCH (09:32)
[2020-08-29] MEDS: Insulin Lispro 100 Unit/ML 3 ML KwikPen SUBCUT SCH ×3 (11:17→21:16)
[2020-08-29] MEDS: Vancomycin 1.1 GM in Sodium Chloride 0.9% 250 ML IV SCH (11:25)
--- NOTE | 2020-08-29 14:16 | PCM.PN ---
- General Info Date of Service: 08/29/20 Subjective Update: Ms. Ma has shown further improvement since yesterday with less shortness of breath and requiring less supplemental oxygen. Continues to have intermittent loose stools, several per day. Vital signs have remained stable and she has been afebrile. Functional Status: Reports: Tolerating Diet, Urinating. Denies: Ambulating - Review of Systems General: Reports: Weakness, Fatigue. Denies: Fever, Chills Pulmonary: Reports: Shortness of Breath, Cough, Wheezing. Denies: Pleuritic Chest Pain, Sputum, Hemoptysis Cardiovascular: Reports: Dyspnea on Exertion, Edema. Denies: Chest Pain, Palpitations, Orthopnea, PND, Lightheadedness Gastrointestinal: Reports: Diarrhea. Denies: Abdominal Pain, Constipation, Difficulty Swallowing, Hematochezia, Melena, Nausea, Vomiting Genitourinary: Reports: No Symptoms - Patient Data Vitals - Most Recent: Last Vital Signs Temp 97.5 F 08/29/20 11:00 Pulse 77 08/29/20 13:00 Resp 13 08/29/20 12:00 BP 113/68 08/29/20 13:00 Pulse Ox 89 L 08/29/20 12:00 Weight - Most Recent: 181 lb 6.4 oz I&O - Last 24 Hours: Intake & Output 08/28/20 08/29/20 08/29/20 22:59 06:59 14:59 Intake Total 1690 1560 350 Output Total 900 1650 400 Balance 790 -90 -50 Lab Results Last 24 Hours: Laboratory Results - last 24 hr 08/29/20 Range/Units 05:17 Sodium 131 L (140-148) mmol/L Potassium 3.7 (3.6-5.2) mmol/L Chloride 96 L (100-108) mmol/L Carbon Dioxide 28 (21-32) mmol/L Anion Gap 10.7 (5.0-14.0) mmol/L BUN 23 H (7-18) mg/dL Creatinine 1.3 H (0.6-1.0) mg/dL Est Cr Clr Drug Dosing 41.93 mL/min Estimated GFR (MDRD) 42 L (>60) Glucose 586 H* (74-106) mg/dL Calcium 9.2 (8.5-10.1) mg/dL Alberto Results Last 24 Hours: Microbiology 08/23/20 09:35 Aerobic Blood Culture - Final Blood - Arterial Line - Direct Stick NO GROWTH AFTER 5 DAYS Anaerobic Blood Culture - Final NO GROWTH AFTER 5 DAYS 08/23/20 09:30 Aerobic Blood Culture - Final Blood - Arm, Left NO GROWTH AFTER 5 DAYS Anaerobic Blood Culture - Final NO GROWTH AFTER 5 DAYS Med Orders - Current: Current Medications Hydrocodone Bitart/Acetaminophen ([place] 325-5 Mg) 2 tab PO Q4H PRN PRN Reason: Pain Last Admin: 08/29/20 09:03 Dose: 2 tab Documented by: Albuterol (Proventil Neb Soln) 2.5 mg NEB Q4H PRN PRN Reason: Shortness Of Breath/wheezing Last Admin: 08/22/20 23:34 Dose: 2.5 mg Documented by: Amlodipine Besylate (Norvasc) 10 mg PO DAILY [facility] Last Admin: 08/29/20 09:31 Dose: 10 mg Documented by: Lipase/Protease/Amylase (Laquita Hilario 12,000 Units) 6 cap PO TIDAC [facility] Last Admin: 08/29/20 11:25 Dose: 6 cap Documented by: Carvedilol (Coreg) 6.25 mg PO BIDMEALS [facility] Last Admin: 08/29/20 09:29 Dose: 6.25 mg Documented by: Dextrose (Glutose 15) 15 gm PO ASDIRECTED PRN PRN Reason: Hypoglycemia Dextrose/Water (Dextrose 50% In Water) 50 ml IVPUSH ASDIRECTED PRN PRN Reason: Hypoglycemia Furosemide (Lasix) 40 mg IVPUSH NOW ONE Stop: 08/29/20 18:01 Glucagon (Glucagen) 1 mg IM ASDIRECTED PRN PRN Reason: Hypoglycemia Haloperidol Lactate (Haldol) 2.5 - 5 mg IVPUSH Q6H PRN PRN Reason: Agitation Last Admin: 08/25/20 20:45 Dose: 2.5 mg Documented by: Heparin Sodium (Porcine) (Heparin Lock Flush 100 Units/Ml) 500 units FLUSH ASDIRECTED PRN PRN Reason: flush Last Admin: 08/29/20 02:05 Dose: 500 units Documented by: Meropenem 1 gm/ Sodium (Chloride) 100 mls @ 200 mls/hr IV Q12H [facility] Insulin Human Lispro (Humalog) 0 unit SUBCUT QIDACANDBED [facility]; Protocol Last Admin: 08/29/20 11:17 Dose: 10 units Documented by: Lactobacillus Rhamnosus (Culturelle) 1 cap PO BID [facility] Last Admin: 08/29/20 09:30 Dose: 1 cap Documented by: Losartan Potassium (Cozaar) 100 mg PO DAILY [facility] Last Admin: 08/29/20 09:30 Dose: 100 mg Documented by: Magnesium Oxide (Magnesium Oxide) 400 mg PO BID [facility] Last Admin: 08/29/20 09:31 Dose: 400 mg Documented by: Mirtazapine (Remeron) 15 mg PO BEDTIME [facility] Last Admin: 08/28/20 20:42 Dose: 15 mg Documented by: Cyclosporine ( Restasis) 1 Drop Pom 1 drop EYEBOTH BID [facility] Last Admin: 08/29/20 09:30 Dose: Not Given Documented by: Ondansetron HCl (Zofran Odt) 4 mg PO Q4H PRN PRN Reason: Nausea/Vomiting Last Admin: 08/21/20 15:27 Dose: 4 mg Documented by: Pantoprazole Sodium (Protonix Granules) 40 mg PO ACBREAKFAST [facility] Potassium Chloride (Potassium Chloride) 10 meq PO DAILY [facility] Last Admin: 08/29/20 09:31 Dose: 10 meq Documented by: Discontinued Medications Hydrocodone Bitart/Acetaminophen ([place] 325-5 Mg) 1 tab PO Q4H PRN PRN Reason: Abdominal Pain Last Admin: 08/21/20 10:16 Dose: 1 tab Documented by: Hydrocodone Bitart/Acetaminophen ([place] 325-5 Mg) 1 - 2 tab PO Q6H PRN PRN Reason: Pain Last Admin: 08/27/20 07:58 Dose: 1 tab Documented by: Furosemide (Lasix) 40 mg IVPUSH DAILY [facility] Last Admin: 08/23/20 08:43 Dose: 40 mg Documented by: Furosemide (Lasix) 40 mg IVPUSH ONETIME STA Stop: 08/22/20 17:04 Last Admin: 08/22/20 17:18 Dose: 40 mg Documented by: Furosemide (Lasix) 20 mg IVPUSH ONETIME ONE Stop: 08/23/20 00:02 Last Admin: 08/23/20 00:19 Dose: 20 mg Documented by: Furosemide (Lasix) 20 mg IVPUSH ONETIME ONE Stop: 08/23/20 03:41 Last Admin: 08/23/20 04:00 Dose: 20 mg Documented by: Furosemide (Lasix) 20 mg IVPUSH ONETIME ONE Stop: 08/24/20 04:08 Last Admin: 08/24/20 04:26 Dose: 20 mg Documented by: Furosemide (Lasix) 40 mg IVPUSH ONETIME ONE Stop: 08/24/20 13:01 Last Admin: 08/24/20 13:30 Dose: 40 mg Documented by: Furosemide (Lasix) 40 mg IVPUSH NOW ONE Stop: 08/25/20 16:01 Last Admin: 08/25/20 16:47 Dose: 40 mg Documented by: Furosemide (Lasix) 40 mg IVPUSH NOW ONE Stop: 08/26/20 17:01 Last Admin: 08/26/20 17:51 Dose: 40 mg Documented by: Furosemide (Lasix) 40 mg IVPUSH NOW ONE Stop: 08/27/20 08:31 Last Admin: 08/27/20 10:35 Dose: 40 mg Documented by: Furosemide (Lasix) 40 mg IVPUSH NOW ONE Stop: 08/28/20 11:31 Last Admin: 08/28/20 11:32 Dose: 40 mg Documented by: Furosemide (Lasix) 40 mg IVPUSH NOW ONE Stop: 08/28/20 19:31 Last Admin: 08/28/20 19:39 Dose: 40 mg Documented by: Furosemide (Lasix) 40 mg IVPUSH NOW ONE Stop: 08/29/20 08:36 Last Admin: 08/29/20 09:32 Dose: 40 mg Documented by: Haloperidol Lactate (Haldol) 5 mg IVPUSH Q6H PRN PRN Reason: Agitation Last Admin: 08/22/20 21:08 Dose: 5 mg Documented by: Haloperidol Lactate (Haldol) 2.5 - 5 mg IVPUSH Q6H [facility] Heparin Sodium (Porcine) (Heparin Lock Flush 100 Units/Ml) Confirm Administered Dose 500 units .ROUTE .STK-MED ONE Stop: 08/23/20 04:22 Last Admin: 08/23/20 04:50 Dose: 500 units Documented by: Hydromorphone HCl (Dilaudid) 0.5 mg IVPUSH ONETIME ONE Stop: 08/20/20 15:48 Last Admin: 08/20/20 16:31 Dose: 0.5 mg Documented by: Hydromorphone HCl (Dilaudid) 1 mg IVPUSH ONETIME ONE Stop: 08/20/20 17:38 Last Admin: 08/20/20 17:52 Dose: 1 mg Documented by: Hydromorphone HCl (Dilaudid) 1 mg IVPUSH ONETIME ONE Stop: 08/20/20 21:04 Last Admin: 08/20/20 21:23 Dose: 1 mg Documented by: Hydromorphone HCl (Dilaudid) 1 mg IVPUSH Q4H PRN PRN Reason: Abdominal Pain Last Admin: 08/27/20 10:45 Dose: 1 mg Documented by: Sodium Chloride (Normal Saline) 1,000 mls @ 200 mls/hr IV ASDIRECTED [facility] Last Admin: 08/20/20 18:17 Dose: 999 mls/hr Documented by: Sodium Chloride (Normal Saline) 80 mls @ 3.5 mls/sec IV ASDIRECTED [facility] Stop: 08/20/20 16:01 Last Admin: 08/20/20 16:50 Dose: 3.5 mls/sec Documented by: Potassium Chloride 20 meq/ (Premix) 100 mls @ 50 mls/hr IV ONETIME ONE Stop: 08/20/20 19:29 Last Admin: 08/20/20 17:51 Dose: 50 mls/hr Documented by: Sodium Chloride (Normal Saline) 1,000 mls @ 999 mls/hr IV ASDIRECTED [facility] Sodium Chloride (Normal Saline) 1,000 mls @ 25 mls/hr IV ASDIRECTED [facility] Last Admin: 08/22/20 06:50 Dose: 125 mls/hr Documented by: Ciprofloxacin/Dextrose 400 mg/ (Premix) 200 mls @ 200 mls/hr IV Q12H [facility] Last Admin: 08/23/20 08:11 Dose: 200 mls/hr Documented by: Metronidazole 500 mg/ Premix 100 mls @ 100 mls/hr IV Q8H [facility] Last Admin: 08/21/20 08:54 Dose: Not Given Documented by: Ciprofloxacin/Dextrose 400 mg/ (Premix) 200 mls @ 200 mls/hr IV ONETIME ONE Stop: 08/20/20 23:44 Last Admin: 08/20/20 23:16 Dose: 200 mls/hr Documented by: Potassium Chloride 40 meq/ (Premix) 100 mls @ 25 mls/hr IV ONETIME ONE Stop: 08/21/20 09:40 Last Admin: 08/21/20 05:59 Dose: 25 mls/hr Documented by: Metronidazole 500 mg/ Premix 100 mls @ 100 mls/hr IV Q8H [facility] Stop: 08/28/20 23:59 Last Admin: 08/28/20 18:19 Dose: 100 mls/hr Documented by: Potassium Chloride 20 meq/ (Premix) 100 mls @ 50 mls/hr IV ONETIME ONE Stop: 08/22/20 11:29 Last Admin: 08/22/20 10:18 Dose: 50 mls/hr Documented by: Meropenem 1 gm/ Sodium (Chloride) 100 mls @ 200 mls/hr IV Q8H [facility] Last Admin: 08/29/20 10:01 Dose: 200 mls/hr Documented by: Potassium Chloride 40 meq/ (Premix) 100 mls @ 25 mls/hr IV ONETIME ONE Stop: 08/23/20 14:29 Last Admin: 08/23/20 10:06 Dose: 25 mls/hr Documented by: Magnesium Sulfate 2 gm/ Premix 50 mls @ 25 mls/hr IV ONETIME ONE Stop: 08/23/20 12:29 Last Admin: 08/23/20 10:05 Dose: 25 mls/hr Documented by: Vancomycin HCl 1.2 gm/ Sodium (Chloride) 250 mls @ 167 mls/hr IV Q12H [facility] Last Admin: 08/24/20 21:56 Dose: 167 mls/hr Documented by: Vancomycin HCl 1.2 gm/ Sodium (Chloride) 250 mls @ 167 mls/hr IV Q24H [facility] Last Admin: 08/28/20 00:25 Dose: Not Given Documented by: Vancomycin HCl 1.1 gm/ Sodium (Chloride) 250 mls @ 167 mls/hr IV Q24H [facility] Last Admin: 08/29/20 11:25 Dose: 167 mls/hr Documented by: Insulin Human Lispro (Humalog) 10 unit SUBCUT ONETIME ONE Stop: 08/29/20 05:55 Last Admin: 08/29/20 06:03 Dose: 10 units Documented by: Iopamidol (Isovue-300 (61%)) 102 ml IV ONETIME ONE Stop: 08/20/20 15:54 Last Admin: 08/20/20 16:50 Dose: 102 ml Documented by: Lorazepam (Ativan) 1 mg IVPUSH Q4H PRN PRN Reason: Anxiety Last Admin: 08/22/20 18:35 Dose: 1 mg Documented by: Methylprednisolone Sodium Succinate (Solu-Medrol) 40 mg IVPUSH Q8H [facility] Last Admin: 08/26/20 15:40 Dose: 40 mg Documented by: Methylprednisolone Sodium Succinate (Solu-Medrol) 40 mg IVPUSH ONETIME ONE Stop: 08/20/20 23:01 Last Admin: 08/20/20 23:09 Dose: 40 mg Documented by: Methylprednisolone Sodium Succinate (Solu-Medrol) 40 mg IVPUSH Q24H [facility] Last Admin: 08/28/20 16:34 Dose: 40 mg Documented by: Potassium Gluconate (1 TabPom) 1 tab PO BID [facility] Last Admin: 08/23/20 20:08 Dose: Not Given Documented by: Ondansetron HCl (Zofran) 4 mg IVPUSH ONETIME ONE Stop: 08/20/20 16:29 Last Admin: 08/20/20 17:13 Dose: 4 mg Documented by: Pantoprazole Sodium (Protonix Iv) 40 mg IV Q12H [facility] Last Admin: 08/24/20 11:41 Dose: 40 mg Documented by: Pantoprazole Sodium (Protonix Iv) 40 mg IV DAILY [facility] Last Admin: 08/29/20 09:32 Dose: 40 mg Documented by: Potassium Chloride (Klor-Con M20) 40 meq PO ONETIME ONE Stop: 08/23/20 10:01 Last Admin: 08/23/20 10:19 Dose: 40 meq Documented by: Potassium Chloride (Klor-Con M20) 40 meq PO ONETIME ONE Stop: 08/25/20 08:31 Last Admin: 08/25/20 08:49 Dose: 40 meq Documented by: Potassium Chloride (Klor-Con M20) 40 meq PO ONETIME ONE Stop: 08/25/20 15:31 Last Admin: 08/25/20 16:02 Dose: 40 meq Documented by: Potassium Chloride (Potassium Chloride) 40 meq PO ONETIME ONE Stop: 08/27/20 10:31 Last Admin: 08/27/20 10:37 Dose: 40 meq Documented by: Potassium Chloride (Potassium Chloride) 40 meq PO ONETIME ONE Stop: 08/27/20 13:31 Last Admin: 08/27/20 13:42 Dose: 40 meq Documented by: Sodium Chloride (Saline Flush) 10 ml FLUSH ONETIME ONE Stop: 08/20/20 15:54 Last Admin: 08/20/20 16:50 Dose: 10 ml Documented by: - Exam Quality Assessment: Supplemental Oxygen, Central Line/PICC, DVT Prophylaxis General: Alert, Oriented, Cooperative, Moderate Distress Lungs: Decreased Breath Sounds, Rhonchi, Wheezing. No: Crackles, Rales, Rub Cardiovascular: Regular Rate, Regular Rhythm, No Murmurs GI/Abdominal Exam: Soft, No Organomegaly, Tender. No: Distended, Guarding, Rigid, Rebound Extremities: Non-Tender, Pedal Edema Sepsis Event Note - Evaluation Sepsis Screening Result: No Definite Risk - Focused Exam Vital Signs: Vital Signs Temp Pulse Pulse Resp BP BP Pulse Ox 08/29/20 13:00 77 113/68 08/29/20 12:00 80 13 81/52 L 89 L 08/29/20 11:00 97.5 F 85 17 89/56 L 94 L 08/29/20 10:00 97.9 F 76 14 104/70 96 08/29/20 09:31 115/66 08/29/20 09:30 115/66 08/29/20 09:29 88 115/66 08/29/20 09:00 87 15 115/66 96 08/29/20 08:00 76 110/66 08/29/20 07:00 75 116/66 08/29/20 06:00 12 124/72 99 08/29/20 05:00 10 L 116/70 97 08/29/20 04:00 97.7 F 12 132/88 99 08/29/20 03:00 16 118/72 98 - Problem List Review Problem List Initiated/Reviewed/Updated: Yes - My Orders Last 24 Hours: My Active Orders 08/29/20 05:54 Dextrose 50% in Water 50 ml IVPUSH ASDIRECTED PRN Glucagon,Human Recombinant [GlucaGen] 1 mg IM ASDIRECTED PRN 08/29/20 08:07 Communication Order [RC] STAT Diabetes Education [RC] Click to Edit Notify Provider [RC] PRN Dextrose [Glutose 15] 15 gm PO ASDIRECTED PRN 08/29/20 11:00 Insulin Lispro [HumaLOG] See Protocol SUBCUT QIDACANDBED 08/29/20 18:00 Furosemide [Lasix] 40 mg IVPUSH NOW ONE 08/29/20 22:00 Meropenem [Merrem] 1 gm Sodium Chloride 0.9% [Normal Saline] 100 ml IV Q12H 08/30/20 05:00 BASIC METABOLIC PANEL,BMP [CHEM] Timed 08/30/20 07:30 GLUCOSE POC LAB TO COLLECT JPM [POC] QIDACANDBED Pantoprazole [ProTONIX Granules] 40 mg PO ACBREAKFAST 08/30/20 11:30 GLUCOSE POC LAB TO COLLECT JPM [POC] QIDACANDBED 08/30/20 16:30 GLUCOSE POC LAB TO COLLECT JPM [POC] QIDACANDBED 08/30/20 21:00 GLUCOSE POC LAB TO COLLECT JPM [POC] QIDACANDBED 08/31/20 07:30 GLUCOSE POC LAB TO COLLECT JPM [POC] QIDACANDBED 08/31/20 11:30 GLUCOSE POC LAB TO COLLECT JPM [POC] QIDACANDBED 08/31/20 16:30 GLUCOSE POC LAB TO COLLECT JPM [POC] QIDACANDBED 08/31/20 21:00 GLUCOSE POC LAB TO COLLECT JPM [POC] QIDACANDBED 09/01/20 07:30 GLUCOSE POC LAB TO COLLECT JPM [POC] QIDACANDBED 09/01/20 11:30 GLUCOSE POC LAB TO COLLECT JPM [POC] QIDACANDBED 09/01/20 16:30 GLUCOSE POC LAB TO COLLECT JPM [POC] QIDACANDBED 09/01/20 21:00 GLUCOSE POC LAB TO COLLECT JPM [POC] QIDACANDBED 09/02/20 07:30 GLUCOSE POC LAB TO COLLECT JPM [POC] QIDACANDBED 09/02/20 11:30 GLUCOSE POC LAB TO COLLECT JPM [POC] QIDACANDBED 09/02/20 16:30 GLUCOSE POC LAB TO COLLECT JPM [POC] QIDACANDBED 09/02/20 21:00 GLUCOSE POC LAB TO COLLECT JPM [POC] QIDACANDBED 09/03/20 07:30 GLUCOSE POC LAB TO COLLECT JPM [POC] QIDACANDBED - Plan Plan:: ASSESSMENT AND PLAN Colitis with rectal bleeding. and abdominal pain-abdominal pain has improved as has diarrhea but not totally resolved -Pain and nausea management - Pain control -On IV meropenem Bilateral pneumonia-Viral versus bacterial, white blood cell count is now within normal range -Blood cultures pending -Discontinue IV vancomycin -Continue IV meropenem Hypoxic respiratory failure-secondary to bilateral pneumonia. Oxygenation has improved over the past 3 days. She is on nasal cannula most of the time at 6 L/min, continues to use BiPAP intermittently -Furosemide 40 mg IV twice today -Supplemental oxygen as needed -Noninvasive positive pressure ventilation Hypertension -continue outpatient medications Chronic pancreatitis- amylase and lipase are normal range -continue outpatient medication Maintenance issues - - DVT prophylaxis -SCD - GI prophylaxis -IV PPI Protonix 40 mg every 12 hours - Nutrition -full liquid - Colon catheter -not indicated at this time CODE STATUS -full code Admission justification -this patient will be admitted for inpatient services and is medically appropriate meeting medical necessity for inpatient admission as outlined in my documentation. I reasonably expect the patient will require inpatient services that span a period time over 2 midnights. I reasonably expect this patient to be discharged or transferred within 96 hours [facility]. Disposition -I would anticipate discharge home after the hospital stay Primary care physician -Dr. Nash
[2020-08-29] MEDS: Mirtazapine 15 MG Tab PO SCH (21:15)
[2020-08-30] MEDS: Acetaminophen/HYDROcodone 325-5 MG Tab PO PRN ×2 (04:32→08:54)
[2020-08-30] MEDS ORDERED: Pantoprazole 40 MG Delayed-Release Granules 1 Packet PO SCH (07:30)
[2020-08-30] MEDS: Insulin Lispro 100 Unit/ML 3 ML KwikPen SUBCUT SCH ×4 (08:34→21:09)
[2020-08-30] MEDS: Amylase/Lipase/Protease 12,000 Unit Cap.CR PO SCH ×3 (08:35→17:39)
[2020-08-30] MEDS: Losartan 50 MG Tab PO SCH (08:35)
[2020-08-30] MEDS: Carvedilol 3.125 MG Tab PO SCH ×2 (08:36→16:56)
[2020-08-30] MEDS: amLODIPine 5 MG Tab PO SCH (08:36)
[2020-08-30] MEDS: Lactobacillus Rhamnosus GG (Probiotic) Cap PO SCH ×2 (08:37→21:57)
[2020-08-30] MEDS: Magnesium Oxide 400 MG Tab PO SCH ×2 (08:37→21:57)
[2020-08-30] MEDS: Potassium Chloride 10 MEQ Cap.ER PO SCH (08:37)
[2020-08-30] MEDS: CYCLOSPORINE EYEBOTH SCH ×2 (08:41→21:58)
[2020-08-30] MEDS: Meropenem 1 GM in Sodium Chloride 0.9% 100 ML IV SCH (09:49)
--- NOTE | 2020-08-30 09:59 | PCM.PN ---
- General Info Date of Service: 08/30/20 Subjective Update: There were no acute events overnight. Patient reports that her abdominal pain is not well controlled. She also has pain in both lower extremities that she attributes to the significant swelling in both thighs and calf areas. She thinks her breathing is a little bit better today and she feels less short of breath. She does not have much of a cough. No significant nausea. Continues to have loose stools. She has not had any fevers. Still requiring 6 L of supplemental oxygen. Functional Status: Reports: Tolerating Diet. Denies: Pain Controlled - Review of Systems General: Denies: Fever Pulmonary: Reports: Shortness of Breath Cardiovascular: Reports: Edema - Patient Data Vitals - Most Recent: Last Vital Signs Temp 36.7 C 08/30/20 08:00 Pulse 73 08/30/20 08:36 Resp 13 08/30/20 08:00 BP 123/65 08/30/20 08:36 Pulse Ox 90 L 08/30/20 09:05 Weight - Most Recent: 82.418 kg I&O - Last 24 Hours: Intake & Output 08/29/20 08/30/20 08/30/20 22:59 06:59 14:59 Intake Total 840 360 580 Output Total 2100 350 Balance -1260 10 580 Lab Results Last 24 Hours: Laboratory Results - last 24 hr 08/20/20 08/30/20 Range/Units 17:31 06:00 Sodium 140 (140-148) mmol/L Potassium 3.3 L (3.6-5.2) mmol/L Chloride 101 (100-108) mmol/L Carbon Dioxide 33 H (21-32) mmol/L Anion Gap 9.3 (5.0-14.0) mmol/L BUN 25 H (7-18) mg/dL Creatinine 1.1 H (0.6-1.0) mg/dL Est Cr Clr Drug Dosing 49.55 mL/min Estimated GFR (MDRD) 51 L (>60) Glucose 224 H (74-106) mg/dL Calcium 9.7 (8.5-10.1) mg/dL Crossmatch See Detail Med Orders - Current: Current Medications Hydrocodone Bitart/Acetaminophen (Pound 325-5 Mg) 2 tab PO Q4H PRN PRN Reason: Pain Last Admin: 11/16/20 08:54 Dose: 2 tab Documented by: Albuterol (Proventil Neb Soln) 2.5 mg NEB Q4H PRN PRN Reason: Shortness Of Breath/wheezing Last Admin: 08/22/20 23:34 Dose: 2.5 mg Documented by: Amlodipine Besylate (Norvasc) 10 mg PO DAILY [facility] Last Admin: 08/30/20 08:36 Dose: 10 mg Documented by: Lipase/Protease/Amylase (Laquita Hilario 12,000 Units) 6 cap PO TIDAC [facility] Last Admin: 08/30/20 08:35 Dose: 6 cap Documented by: Carvedilol (Coreg) 6.25 mg PO BIDMEALS [facility] Last Admin: 08/30/20 08:36 Dose: 6.25 mg Documented by: Dextrose (Glutose 15) 15 gm PO ASDIRECTED PRN PRN Reason: Hypoglycemia Dextrose/Water (Dextrose 50% In Water) 50 ml IVPUSH ASDIRECTED PRN PRN Reason: Hypoglycemia Furosemide (Lasix) 40 mg IVPUSH BID [facility] Stop: 08/30/20 21:01 Glucagon (Glucagen) 1 mg IM ASDIRECTED PRN PRN Reason: Hypoglycemia Heparin Sodium (Porcine) (Heparin Lock Flush 100 Units/Ml) 500 units FLUSH ASDIRECTED PRN PRN Reason: flush Last Admin: 08/29/20 22:45 Dose: 500 units Documented by: Hydromorphone HCl (Dilaudid) 4 mg PO Q4H PRN PRN Reason: Pain (moderate 4-6) Hydromorphone HCl (Dilaudid) 1 mg IVPUSH Q4H PRN PRN Reason: Pain (severe 7-10) Meropenem 1 gm/ Sodium (Chloride) 100 mls @ 200 mls/hr IV Q12H [facility] Last Admin: 08/30/20 09:49 Dose: 200 mls/hr Documented by: Insulin Human Lispro (Humalog) 0 unit SUBCUT QIDACANDBED [facility]; Protocol Lactobacillus Rhamnosus (Culturelle) 1 cap PO BID [facility] Last Admin: 08/30/20 08:37 Dose: 1 cap Documented by: Losartan Potassium (Cozaar) 100 mg PO DAILY [facility] Last Admin: 08/30/20 08:35 Dose: 100 mg Documented by: Magnesium Oxide (Magnesium Oxide) 400 mg PO BID [facility] Last Admin: 08/30/20 08:37 Dose: 400 mg Documented by: Mirtazapine (Remeron) 15 mg PO BEDTIME [facility] Last Admin: 08/29/20 21:15 Dose: 15 mg Documented by: Cyclosporine ( Restasis) 1 Drop Pom 1 drop EYEBOTH BID [facility] Last Admin: 08/30/20 08:41 Dose: Not Given Documented by: Ondansetron HCl (Zofran Odt) 4 mg PO Q4H PRN PRN Reason: Nausea/Vomiting Last Admin: 08/21/20 15:27 Dose: 4 mg Documented by: Pantoprazole Sodium (Protonix Granules) 40 mg PO ACBREAKFAST [facility] Last Admin: 08/30/20 08:35 Dose: 40 mg Documented by: Potassium Chloride (Potassium Chloride) 10 meq PO DAILY [facility] Last Admin: 08/30/20 08:37 Dose: 10 meq Documented by: Potassium Chloride (Klor-Con M20) 40 meq PO BID [facility] Discontinued Medications Hydrocodone Bitart/Acetaminophen (Pound 325-5 Mg) 1 tab PO Q4H PRN PRN Reason: Abdominal Pain Last Admin: 08/21/20 10:16 Dose: 1 tab Documented by: Hydrocodone Bitart/Acetaminophen (Pound 325-5 Mg) 1 - 2 tab PO Q6H PRN PRN Reason: Pain Last Admin: 08/27/20 07:58 Dose: 1 tab Documented by: Furosemide (Lasix) 40 mg IVPUSH DAILY [facility] Last Admin: 08/23/20 08:43 Dose: 40 mg Documented by: Furosemide (Lasix) 40 mg IVPUSH ONETIME STA Stop: 08/22/20 17:04 Last Admin: 08/22/20 17:18 Dose: 40 mg Documented by: Furosemide (Lasix) 20 mg IVPUSH ONETIME ONE Stop: 08/23/20 00:02 Last Admin: 08/23/20 00:19 Dose: 20 mg Documented by: Furosemide (Lasix) 20 mg IVPUSH ONETIME ONE Stop: 08/23/20 03:41 Last Admin: 08/23/20 04:00 Dose: 20 mg Documented by: Furosemide (Lasix) 20 mg IVPUSH ONETIME ONE Stop: 08/24/20 04:08 Last Admin: 08/24/20 04:26 Dose: 20 mg Documented by: Furosemide (Lasix) 40 mg IVPUSH ONETIME ONE Stop: 08/24/20 13:01 Last Admin: 08/24/20 13:30 Dose: 40 mg Documented by: Furosemide (Lasix) 40 mg IVPUSH NOW ONE Stop: 08/25/20 16:01 Last Admin: 08/25/20 16:47 Dose: 40 mg Documented by: Furosemide (Lasix) 40 mg IVPUSH NOW ONE Stop: 08/26/20 17:01 Last Admin: 08/26/20 17:51 Dose: 40 mg Documented by: Furosemide (Lasix) 40 mg IVPUSH NOW ONE Stop: 08/27/20 08:31 Last Admin: 08/27/20 10:35 Dose: 40 mg Documented by: Furosemide (Lasix) 40 mg IVPUSH NOW ONE Stop: 08/28/20 11:31 Last Admin: 08/28/20 11:32 Dose: 40 mg Documented by: Furosemide (Lasix) 40 mg IVPUSH NOW ONE Stop: 08/28/20 19:31 Last Admin: 08/28/20 19:39 Dose: 40 mg Documented by: Furosemide (Lasix) 40 mg IVPUSH NOW ONE Stop: 08/29/20 08:36 Last Admin: 08/29/20 09:32 Dose: 40 mg Documented by: Furosemide (Lasix) 40 mg IVPUSH NOW ONE Stop: 08/29/20 18:01 Last Admin: 08/29/20 17:32 Dose: 40 mg Documented by: Haloperidol Lactate (Haldol) 5 mg IVPUSH Q6H PRN PRN Reason: Agitation Last Admin: 08/22/20 21:08 Dose: 5 mg Documented by: Haloperidol Lactate (Haldol) 2.5 - 5 mg IVPUSH Q6H [facility] Haloperidol Lactate (Haldol) 2.5 - 5 mg IVPUSH Q6H PRN PRN Reason: Agitation Last Admin: 08/25/20 20:45 Dose: 2.5 mg Documented by: Heparin Sodium (Porcine) (Heparin Lock Flush 100 Units/Ml) Confirm Administered Dose 500 units .ROUTE .STK-MED ONE Stop: 08/23/20 04:22 Last Admin: 08/23/20 04:50 Dose: 500 units Documented by: Hydromorphone HCl (Dilaudid) 0.5 mg IVPUSH ONETIME ONE Stop: 08/20/20 15:48 Last Admin: 08/20/20 16:31 Dose: 0.5 mg Documented by: Hydromorphone HCl (Dilaudid) 1 mg IVPUSH ONETIME ONE Stop: 08/20/20 17:38 Last Admin: 08/20/20 17:52 Dose: 1 mg Documented by: Hydromorphone HCl (Dilaudid) 1 mg IVPUSH ONETIME ONE Stop: 08/20/20 21:04 Last Admin: 08/20/20 21:23 Dose: 1 mg Documented by: Hydromorphone HCl (Dilaudid) 1 mg IVPUSH Q4H PRN PRN Reason: Abdominal Pain Last Admin: 08/27/20 10:45 Dose: 1 mg Documented by: Sodium Chloride (Normal Saline) 1,000 mls @ 200 mls/hr IV ASDIRECTED [facility] Last Admin: 08/20/20 18:17 Dose: 999 mls/hr Documented by: Sodium Chloride (Normal Saline) 80 mls @ 3.5 mls/sec IV ASDIRECTED [facility] Stop: 08/20/20 16:01 Last Admin: 08/20/20 16:50 Dose: 3.5 mls/sec Documented by: Potassium Chloride 20 meq/ (Premix) 100 mls @ 50 mls/hr IV ONETIME ONE Stop: 08/20/20 19:29 Last Admin: 08/20/20 17:51 Dose: 50 mls/hr Documented by: Sodium Chloride (Normal Saline) 1,000 mls @ 999 mls/hr IV ASDIRECTED [facility] Sodium Chloride (Normal Saline) 1,000 mls @ 25 mls/hr IV ASDIRECTED [facility] Last Admin: 08/22/20 06:50 Dose: 125 mls/hr Documented by: Ciprofloxacin/Dextrose 400 mg/ (Premix) 200 mls @ 200 mls/hr IV Q12H [facility] Last Admin: 08/23/20 08:11 Dose: 200 mls/hr Documented by: Metronidazole 500 mg/ Premix 100 mls @ 100 mls/hr IV Q8H [facility] Last Admin: 08/21/20 08:54 Dose: Not Given Documented by: Ciprofloxacin/Dextrose 400 mg/ (Premix) 200 mls @ 200 mls/hr IV ONETIME ONE Stop: 08/20/20 23:44 Last Admin: 08/20/20 23:16 Dose: 200 mls/hr Documented by: Potassium Chloride 40 meq/ (Premix) 100 mls @ 25 mls/hr IV ONETIME ONE Stop: 08/21/20 09:40 Last Admin: 08/21/20 05:59 Dose: 25 mls/hr Documented by: Metronidazole 500 mg/ Premix 100 mls @ 100 mls/hr IV Q8H [facility] Stop: 08/28/20 23:59 Last Admin: 08/28/20 18:19 Dose: 100 mls/hr Documented by: Potassium Chloride 20 meq/ (Premix) 100 mls @ 50 mls/hr IV ONETIME ONE Stop: 08/22/20 11:29 Last Admin: 08/22/20 10:18 Dose: 50 mls/hr Documented by: Meropenem 1 gm/ Sodium (Chloride) 100 mls @ 200 mls/hr IV Q8H [facility] Last Admin: 08/29/20 10:01 Dose: 200 mls/hr Documented by: Potassium Chloride 40 meq/ (Premix) 100 mls @ 25 mls/hr IV ONETIME ONE Stop: 08/23/20 14:29 Last Admin: 08/23/20 10:06 Dose: 25 mls/hr Documented by: Magnesium Sulfate 2 gm/ Premix 50 mls @ 25 mls/hr IV ONETIME ONE Stop: 08/23/20 12:29 Last Admin: 08/23/20 10:05 Dose: 25 mls/hr Documented by: Vancomycin HCl 1.2 gm/ Sodium (Chloride) 250 mls @ 167 mls/hr IV Q12H [facility] Last Admin: 08/24/20 21:56 Dose: 167 mls/hr Documented by: Vancomycin HCl 1.2 gm/ Sodium (Chloride) 250 mls @ 167 mls/hr IV Q24H [facility] Last Admin: 08/28/20 00:25 Dose: Not Given Documented by: Vancomycin HCl 1.1 gm/ Sodium (Chloride) 250 mls @ 167 mls/hr IV Q24H [facility] Last Admin: 08/29/20 11:25 Dose: 167 mls/hr Documented by: Insulin Human Lispro (Humalog) 10 unit SUBCUT ONETIME ONE Stop: 08/29/20 05:55 Last Admin: 08/29/20 06:03 Dose: 10 units Documented by: Insulin Human Lispro (Humalog) 0 unit SUBCUT QIDACANDBED [facility]; Protocol Last Admin: 08/30/20 08:34 Dose: 4 units Documented by: Iopamidol (Isovue-300 (61%)) 102 ml IV ONETIME ONE Stop: 08/20/20 15:54 Last Admin: 08/20/20 16:50 Dose: 102 ml Documented by: Lorazepam (Ativan) 1 mg IVPUSH Q4H PRN PRN Reason: Anxiety Last Admin: 08/22/20 18:35 Dose: 1 mg Documented by: Methylprednisolone Sodium Succinate (Solu-Medrol) 40 mg IVPUSH Q8H [facility] Last Admin: 08/26/20 15:40 Dose: 40 mg Documented by: Methylprednisolone Sodium Succinate (Solu-Medrol) 40 mg IVPUSH ONETIME ONE Stop: 08/20/20 23:01 Last Admin: 08/20/20 23:09 Dose: 40 mg Documented by: Methylprednisolone Sodium Succinate (Solu-Medrol) 40 mg IVPUSH Q24H [facility] Last Admin: 08/28/20 16:34 Dose: 40 mg Documented by: Potassium Gluconate (1 TabPom) 1 tab PO BID [facility] Last Admin: 08/23/20 20:08 Dose: Not Given Documented by: Ondansetron HCl (Zofran) 4 mg IVPUSH ONETIME ONE Stop: 08/20/20 16:29 Last Admin: 08/20/20 17:13 Dose: 4 mg Documented by: Pantoprazole Sodium (Protonix Iv) 40 mg IV Q12H [facility] Last Admin: 08/24/20 11:41 Dose: 40 mg Documented by: Pantoprazole Sodium (Protonix Iv) 40 mg IV DAILY [facility] Last Admin: 08/29/20 09:32 Dose: 40 mg Documented by: Potassium Chloride (Klor-Con M20) 40 meq PO ONETIME ONE Stop: 08/23/20 10:01 Last Admin: 08/23/20 10:19 Dose: 40 meq Documented by: Potassium Chloride (Klor-Con M20) 40 meq PO ONETIME ONE Stop: 08/25/20 08:31 Last Admin: 08/25/20 08:49 Dose: 40 meq Documented by: Potassium Chloride (Klor-Con M20) 40 meq PO ONETIME ONE Stop: 08/25/20 15:31 Last Admin: 08/25/20 16:02 Dose: 40 meq Documented by: Potassium Chloride (Potassium Chloride) 40 meq PO ONETIME ONE Stop: 08/27/20 10:31 Last Admin: 08/27/20 10:37 Dose: 40 meq Documented by: Potassium Chloride (Potassium Chloride) 40 meq PO ONETIME ONE Stop: 08/27/20 13:31 Last Admin: 08/27/20 13:42 Dose: 40 meq Documented by: Sodium Chloride (Saline Flush) 10 ml FLUSH ONETIME ONE Stop: 08/20/20 15:54 Last Admin: 08/20/20 16:50 Dose: 10 ml Documented by: - Exam Quality Assessment: Supplemental Oxygen General: Alert, Oriented, Cooperative, No Acute Distress Neck: Supple, No JVD Lungs: Normal Respiratory Effort, Crackles (few right lung base) Cardiovascular: Regular Rate, Regular Rhythm GI/Abdominal Exam: Normal Bowel Sounds, Soft, No Distention, Guarding (mild ), Tender (moderately severe epigastric area ) Extremities: Pedal Edema. No: Increased Warmth Skin: Warm, Dry Psy/Mental Status: Alert, Normal Affect Sepsis Event Note - Evaluation Sepsis Screening Result: No Definite Risk - Focused Exam Vital Signs: Vital Signs Temp Pulse Pulse Resp BP BP Pulse Ox 08/30/20 09:05 08/30/20 08:36 73 123/65 08/30/20 08:35 123/65 08/30/20 08:00 36.7 C 77 13 123/65 90 L 08/30/20 06:00 13 99/57 L 91 L 08/30/20 04:00 36.6 C 12 107/60 93 L 08/30/20 02:00 12 112/61 93 L 08/30/20 00:00 12 90/46 L 91 L 08/29/20 23:00 14 107/57 L 94 L 08/29/20 22:00 18 104/74 97 Pulse Ox 08/30/20 09:05 90 L 08/30/20 08:36 08/30/20 08:35 08/30/20 08:00 08/30/20 06:00 08/30/20 04:00 08/30/20 02:00 08/30/20 00:00 08/29/20 23:00 08/29/20 22:00 - Problem List Review Problem List Initiated/Reviewed/Updated: Yes - My Orders Last 24 Hours: My Active Orders 08/30/20 09:48 Communication Order [RC] PRN Communication Order [RC] PRN 08/30/20 09:50 Blood Glucose Check, Bedside [RC] QIDACANDBED 08/30/20 11:00 Insulin Lispro [HumaLOG] See Protocol SUBCUT QIDACANDBED 08/31/20 05:00 CBC W/O DIFF,HEMOGRAM [HEME] Timed (1) - Plan Plan:: ASSESSMENT AND PLAN Colitis with rectal bleeding and abdominal pain-abdominal pain has increased though her most recent CT scan shows improvement in the colitis. Still having some loose stools but no fevers. -Pain and nausea management -She has completed adequate antibiotic therapy -inpatient vs outpatient colonoscopy Bilateral pneumonia, suspected-Viral versus bacterial, white blood cell count is now within normal range. she is on empiric antibiotics but I think this is more likely a volume issue than an infection. -Blood cultures pending -Discontinue IV vancomycin -Continue IV meropenem Hypoxic respiratory failure-secondary to ARDS with volume overload versus bilateral pneumonia. Oxygenation is slowly improving. Did not require noninvasive ventilation overnight. -Furosemide 40 mg IV twice today -Supplemental oxygen as needed -Noninvasive positive pressure ventilation Hypertension-blood pressure on the low side this afternoon. -Hold outpatient medications Chronic pancreatitis- amylase and lipase are normal range -continue outpatient medication Maintenance issues - - DVT prophylaxis -SCD - GI prophylaxis -IV PPI Protonix 40 mg every 12 hours - Nutrition -full liquid Disposition -I would anticipate discharge home after the hospital stay Edilberto Guerrero MD
[2020-08-30] MEDS ORDERED: Furosemide 40 MG/4 ML VIAL IVPUSH SCH (10:00)
--- NOTE | 2020-08-30 10:12 | PCM.PN ---
- General Info Date of Service: 08/30/20 Subjective Update: Ms. Ma vital signs coninue to remain stable. She continues to require supplemental oxygen at 8 liters via nasal canula. She has intermittent loose stools that are starting to have consistency of about oatmeal without noted blood. She has notable edema to bilateral extremities that cause significant pain 8/10. Her abdominal pain also remains an 8/10 while stooling, but does seem to improve some after. She is also requesting to ambulate or move around more in her room. Functional Status: Reports: Tolerating Diet, Urinating. Denies: Pain Controlled, Ambulating - Review of Systems General: Reports: No Symptoms. Denies: Fever HEENT: Reports: No Symptoms Pulmonary: Reports: Shortness of Breath Cardiovascular: Reports: Dyspnea on Exertion, Edema Gastrointestinal: Reports: Abdominal Pain, Diarrhea. Denies: Constipation, Decreased Appetite, Hematochezia, Melena Genitourinary: Reports: No Symptoms Musculoskeletal: Reports: Leg Pain (related to edema) Skin: Reports: Other (abbraision to right hip from edema and underwear putting pressure on it.) Neurological: Reports: No Symptoms Psychiatric: Reports: No Symptoms - Patient Data Vitals - Most Recent: Last Vital Signs Temp 98.1 F 08/30/20 08:00 Pulse 73 08/30/20 08:36 Resp 13 08/30/20 08:00 BP 123/65 08/30/20 08:36 Pulse Ox 90 L 08/30/20 09:05 Weight - Most Recent: 181 lb 11.2 oz I&O - Last 24 Hours: Intake & Output 08/29/20 08/30/20 08/30/20 22:59 06:59 14:59 Intake Total 840 360 580 Output Total 2100 350 Balance -1260 10 580 Lab Results Last 24 Hours: Laboratory Results - last 24 hr 08/20/20 08/30/20 Range/Units 17:31 06:00 Sodium 140 (140-148) mmol/L Potassium 3.3 L (3.6-5.2) mmol/L Chloride 101 (100-108) mmol/L Carbon Dioxide 33 H (21-32) mmol/L Anion Gap 9.3 (5.0-14.0) mmol/L BUN 25 H (7-18) mg/dL Creatinine 1.1 H (0.6-1.0) mg/dL Est Cr Clr Drug Dosing 49.55 mL/min Estimated GFR (MDRD) 51 L (>60) Glucose 224 H (74-106) mg/dL Calcium 9.7 (8.5-10.1) mg/dL Crossmatch See Detail Med Orders - Current: Current Medications Hydrocodone Bitart/Acetaminophen ([place] 325-5 Mg) 2 tab PO Q4H PRN PRN Reason: Pain Last Admin: 08/30/20 08:54 Dose: 2 tab Documented by: Albuterol (Proventil Neb Soln) 2.5 mg NEB Q4H PRN PRN Reason: Shortness Of Breath/wheezing Last Admin: 08/22/20 23:34 Dose: 2.5 mg Documented by: Amlodipine Besylate (Norvasc) 10 mg PO DAILY [facility] Last Admin: 08/30/20 08:36 Dose: 10 mg Documented by: Lipase/Protease/Amylase (Laquita Hilario 12,000 Units) 6 cap PO TIDAC [facility] Last Admin: 08/30/20 08:35 Dose: 6 cap Documented by: Carvedilol (Coreg) 6.25 mg PO BIDMEALS [facility] Last Admin: 08/30/20 08:36 Dose: 6.25 mg Documented by: Dextrose (Glutose 15) 15 gm PO ASDIRECTED PRN PRN Reason: Hypoglycemia Dextrose/Water (Dextrose 50% In Water) 50 ml IVPUSH ASDIRECTED PRN PRN Reason: Hypoglycemia Furosemide (Lasix) 40 mg IVPUSH BID [facility] Stop: 08/30/20 21:01 Glucagon (Glucagen) 1 mg IM ASDIRECTED PRN PRN Reason: Hypoglycemia Heparin Sodium (Porcine) (Heparin Lock Flush 100 Units/Ml) 500 units FLUSH ASDIRECTED PRN PRN Reason: flush Last Admin: 08/29/20 22:45 Dose: 500 units Documented by: Hydromorphone HCl (Dilaudid) 4 mg PO Q4H PRN PRN Reason: Pain (moderate 4-6) Hydromorphone HCl (Dilaudid) 1 mg IVPUSH Q4H PRN PRN Reason: Pain (severe 7-10) Meropenem 1 gm/ Sodium (Chloride) 100 mls @ 200 mls/hr IV Q12H [facility] Last Admin: 11/16/20 09:49 Dose: 200 mls/hr Documented by: Insulin Human Lispro (Humalog) 0 unit SUBCUT QIDACANDBED [facility]; Protocol Lactobacillus Rhamnosus (Culturelle) 1 cap PO BID [facility] Last Admin: 08/30/20 08:37 Dose: 1 cap Documented by: Losartan Potassium (Cozaar) 100 mg PO DAILY [facility] Last Admin: 08/30/20 08:35 Dose: 100 mg Documented by: Magnesium Oxide (Magnesium Oxide) 400 mg PO BID [facility] Last Admin: 08/30/20 08:37 Dose: 400 mg Documented by: Mirtazapine (Remeron) 15 mg PO BEDTIME [facility] Last Admin: 08/29/20 21:15 Dose: 15 mg Documented by: Cyclosporine ( Restasis) 1 Drop Pom 1 drop EYEBOTH BID [facility] Last Admin: 08/30/20 08:41 Dose: Not Given Documented by: Ondansetron HCl (Zofran Odt) 4 mg PO Q4H PRN PRN Reason: Nausea/Vomiting Last Admin: 08/21/20 15:27 Dose: 4 mg Documented by: Pantoprazole Sodium (Protonix Granules) 40 mg PO ACBREAKFAST [facility] Last Admin: 08/30/20 08:35 Dose: 40 mg Documented by: Potassium Chloride (Potassium Chloride) 10 meq PO DAILY [facility] Last Admin: 08/30/20 08:37 Dose: 10 meq Documented by: Potassium Chloride (Klor-Con M20) 40 meq PO BID [facility] Discontinued Medications Hydrocodone Bitart/Acetaminophen ([place] 325-5 Mg) 1 tab PO Q4H PRN PRN Reason: Abdominal Pain Last Admin: 08/21/20 10:16 Dose: 1 tab Documented by: Hydrocodone Bitart/Acetaminophen ([place] 325-5 Mg) 1 - 2 tab PO Q6H PRN PRN Reason: Pain Last Admin: 08/27/20 07:58 Dose: 1 tab Documented by: Furosemide (Lasix) 40 mg IVPUSH DAILY [facility] Last Admin: 08/23/20 08:43 Dose: 40 mg Documented by: Furosemide (Lasix) 40 mg IVPUSH ONETIME STA Stop: 08/22/20 17:04 Last Admin: 08/22/20 17:18 Dose: 40 mg Documented by: Furosemide (Lasix) 20 mg IVPUSH ONETIME ONE Stop: 08/23/20 00:02 Last Admin: 08/23/20 00:19 Dose: 20 mg Documented by: Furosemide (Lasix) 20 mg IVPUSH ONETIME ONE Stop: 08/23/20 03:41 Last Admin: 08/23/20 04:00 Dose: 20 mg Documented by: Furosemide (Lasix) 20 mg IVPUSH ONETIME ONE Stop: 08/24/20 04:08 Last Admin: 08/24/20 04:26 Dose: 20 mg Documented by: Furosemide (Lasix) 40 mg IVPUSH ONETIME ONE Stop: 08/24/20 13:01 Last Admin: 08/24/20 13:30 Dose: 40 mg Documented by: Furosemide (Lasix) 40 mg IVPUSH NOW ONE Stop: 08/25/20 16:01 Last Admin: 08/25/20 16:47 Dose: 40 mg Documented by: Furosemide (Lasix) 40 mg IVPUSH NOW ONE Stop: 08/26/20 17:01 Last Admin: 08/26/20 17:51 Dose: 40 mg Documented by: Furosemide (Lasix) 40 mg IVPUSH NOW ONE Stop: 08/27/20 08:31 Last Admin: 08/27/20 10:35 Dose: 40 mg Documented by: Furosemide (Lasix) 40 mg IVPUSH NOW ONE Stop: 08/28/20 11:31 Last Admin: 08/28/20 11:32 Dose: 40 mg Documented by: Furosemide (Lasix) 40 mg IVPUSH NOW ONE Stop: 08/28/20 19:31 Last Admin: 08/28/20 19:39 Dose: 40 mg Documented by: Furosemide (Lasix) 40 mg IVPUSH NOW ONE Stop: 08/29/20 08:36 Last Admin: 08/29/20 09:32 Dose: 40 mg Documented by: Furosemide (Lasix) 40 mg IVPUSH NOW ONE Stop: 08/29/20 18:01 Last Admin: 08/29/20 17:32 Dose: 40 mg Documented by: Haloperidol Lactate (Haldol) 5 mg IVPUSH Q6H PRN PRN Reason: Agitation Last Admin: 08/22/20 21:08 Dose: 5 mg Documented by: Haloperidol Lactate (Haldol) 2.5 - 5 mg IVPUSH Q6H [facility] Haloperidol Lactate (Haldol) 2.5 - 5 mg IVPUSH Q6H PRN PRN Reason: Agitation Last Admin: 08/25/20 20:45 Dose: 2.5 mg Documented by: Heparin Sodium (Porcine) (Heparin Lock Flush 100 Units/Ml) Confirm Administered Dose 500 units .ROUTE .STK-MED ONE Stop: 08/23/20 04:22 Last Admin: 08/23/20 04:50 Dose: 500 units Documented by: Hydromorphone HCl (Dilaudid) 0.5 mg IVPUSH ONETIME ONE Stop: 08/20/20 15:48 Last Admin: 08/20/20 16:31 Dose: 0.5 mg Documented by: Hydromorphone HCl (Dilaudid) 1 mg IVPUSH ONETIME ONE Stop: 08/20/20 17:38 Last Admin: 08/20/20 17:52 Dose: 1 mg Documented by: Hydromorphone HCl (Dilaudid) 1 mg IVPUSH ONETIME ONE Stop: 08/20/20 21:04 Last Admin: 08/20/20 21:23 Dose: 1 mg Documented by: Hydromorphone HCl (Dilaudid) 1 mg IVPUSH Q4H PRN PRN Reason: Abdominal Pain Last Admin: 08/27/20 10:45 Dose: 1 mg Documented by: Sodium Chloride (Normal Saline) 1,000 mls @ 200 mls/hr IV ASDIRECTED [facility] Last Admin: 08/20/20 18:17 Dose: 999 mls/hr Documented by: Sodium Chloride (Normal Saline) 80 mls @ 3.5 mls/sec IV ASDIRECTED [facility] Stop: 08/20/20 16:01 Last Admin: 08/20/20 16:50 Dose: 3.5 mls/sec Documented by: Potassium Chloride 20 meq/ (Premix) 100 mls @ 50 mls/hr IV ONETIME ONE Stop: 08/20/20 19:29 Last Admin: 08/20/20 17:51 Dose: 50 mls/hr Documented by: Sodium Chloride (Normal Saline) 1,000 mls @ 999 mls/hr IV ASDIRECTED [facility]ILLIAN Sodium Chloride (Normal Saline) 1,000 mls @ 25 mls/hr IV ASDIRECTED [facility] Last Admin: 08/22/20 06:50 Dose: 125 mls/hr Documented by: Ciprofloxacin/Dextrose 400 mg/ (Premix) 200 mls @ 200 mls/hr IV Q12H [facility] Last Admin: 08/23/20 08:11 Dose: 200 mls/hr Documented by: Metronidazole 500 mg/ Premix 100 mls @ 100 mls/hr IV Q8H [facility] Last Admin: 08/21/20 08:54 Dose: Not Given Documented by: Ciprofloxacin/Dextrose 400 mg/ (Premix) 200 mls @ 200 mls/hr IV ONETIME ONE Stop: 08/20/20 23:44 Last Admin: 08/20/20 23:16 Dose: 200 mls/hr Documented by: Potassium Chloride 40 meq/ (Premix) 100 mls @ 25 mls/hr IV ONETIME ONE Stop: 08/21/20 09:40 Last Admin: 08/21/20 05:59 Dose: 25 mls/hr Documented by: Metronidazole 500 mg/ Premix 100 mls @ 100 mls/hr IV Q8H [facility] Stop: 08/28/20 23:59 Last Admin: 08/28/20 18:19 Dose: 100 mls/hr Documented by: Potassium Chloride 20 meq/ (Premix) 100 mls @ 50 mls/hr IV ONETIME ONE Stop: 08/22/20 11:29 Last Admin: 08/22/20 10:18 Dose: 50 mls/hr Documented by: Meropenem 1 gm/ Sodium (Chloride) 100 mls @ 200 mls/hr IV Q8H [facility] Last Admin: 08/29/20 10:01 Dose: 200 mls/hr Documented by: Potassium Chloride 40 meq/ (Premix) 100 mls @ 25 mls/hr IV ONETIME ONE Stop: 08/23/20 14:29 Last Admin: 08/23/20 10:06 Dose: 25 mls/hr Documented by: Magnesium Sulfate 2 gm/ Premix 50 mls @ 25 mls/hr IV ONETIME ONE Stop: 08/23/20 12:29 Last Admin: 08/23/20 10:05 Dose: 25 mls/hr Documented by: Vancomycin HCl 1.2 gm/ Sodium (Chloride) 250 mls @ 167 mls/hr IV Q12H [facility] Last Admin: 08/24/20 21:56 Dose: 167 mls/hr Documented by: Vancomycin HCl 1.2 gm/ Sodium (Chloride) 250 mls @ 167 mls/hr IV Q24H [facility] Last Admin: 08/28/20 00:25 Dose: Not Given Documented by: Vancomycin HCl 1.1 gm/ Sodium (Chloride) 250 mls @ 167 mls/hr IV Q24H [facility] Last Admin: 08/29/20 11:25 Dose: 167 mls/hr Documented by: Insulin Human Lispro (Humalog) 10 unit SUBCUT ONETIME ONE Stop: 08/29/20 05:55 Last Admin: 08/29/20 06:03 Dose: 10 units Documented by: Insulin Human Lispro (Humalog) 0 unit SUBCUT QIDACANDBED [facility]; Protocol Last Admin: 08/30/20 08:34 Dose: 4 units Documented by: Iopamidol (Isovue-300 (61%)) 102 ml IV ONETIME ONE Stop: 08/20/20 15:54 Last Admin: 08/20/20 16:50 Dose: 102 ml Documented by: Lorazepam (Ativan) 1 mg IVPUSH Q4H PRN PRN Reason: Anxiety Last Admin: 08/22/20 18:35 Dose: 1 mg Documented by: Methylprednisolone Sodium Succinate (Solu-Medrol) 40 mg IVPUSH Q8H [facility] Last Admin: 08/26/20 15:40 Dose: 40 mg Documented by: Methylprednisolone Sodium Succinate (Solu-Medrol) 40 mg IVPUSH ONETIME ONE Stop: 08/20/20 23:01 Last Admin: 08/20/20 23:09 Dose: 40 mg Documented by: Methylprednisolone Sodium Succinate (Solu-Medrol) 40 mg IVPUSH Q24H [facility] Last Admin: 08/28/20 16:34 Dose: 40 mg Documented by: Potassium Gluconate (1 TabPom) 1 tab PO BID [facility] Last Admin: 08/23/20 20:08 Dose: Not Given Documented by: Ondansetron HCl (Zofran) 4 mg IVPUSH ONETIME ONE Stop: 08/20/20 16:29 Last Admin: 08/20/20 17:13 Dose: 4 mg Documented by: Pantoprazole Sodium (Protonix Iv) 40 mg IV Q12H [facility] Last Admin: 08/24/20 11:41 Dose: 40 mg Documented by: Pantoprazole Sodium (Protonix Iv) 40 mg IV DAILY [facility] Last Admin: 08/29/20 09:32 Dose: 40 mg Documented by: Potassium Chloride (Klor-Con M20) 40 meq PO ONETIME ONE Stop: 08/23/20 10:01 Last Admin: 08/23/20 10:19 Dose: 40 meq Documented by: Potassium Chloride (Klor-Con M20) 40 meq PO ONETIME ONE Stop: 08/25/20 08:31 Last Admin: 08/25/20 08:49 Dose: 40 meq Documented by: Potassium Chloride (Klor-Con M20) 40 meq PO ONETIME ONE Stop: 08/25/20 15:31 Last Admin: 08/25/20 16:02 Dose: 40 meq Documented by: Potassium Chloride (Potassium Chloride) 40 meq PO ONETIME ONE Stop: 08/27/20 10:31 Last Admin: 08/27/20 10:37 Dose: 40 meq Documented by: Potassium Chloride (Potassium Chloride) 40 meq PO ONETIME ONE Stop: 08/27/20 13:31 Last Admin: 08/27/20 13:42 Dose: 40 meq Documented by: Sodium Chloride (Saline Flush) 10 ml FLUSH ONETIME ONE Stop: 08/20/20 15:54 Last Admin: 08/20/20 16:50 Dose: 10 ml Documented by: - Exam Quality Assessment: Supplemental Oxygen, Central Line/PICC, DVT Prophylaxis. No: Urine Catheter, Skin Breakdown, Restraints General: Alert, Oriented, Cooperative, No Acute Distress HEENT: Pupils Equal, Pupils Reactive, Mucous Membr. Moist/[place] Neck: Supple Lungs: Crackles (fine crackles to right lower lobe, remainder are clear to auscultation) GI/Abdominal Exam: No Organomegaly, No Abnormal Bruit, Distended, Tender. No: Rigid, Abnormal Bowel Sounds, Mass, Hepatomegaly, Splenomegaly (Female) Exam: Deferred Extremities: Pedal Edema, Leg Pain Neurological: No New Focal Deficit Psy/Mental Status: Alert, Normal Affect, Normal Mood Sepsis Event Note - Evaluation Sepsis Screening Result: No Definite Risk - Focused Exam Vital Signs: Vital Signs Temp Pulse Pulse Resp BP BP Pulse Ox 08/30/20 09:05 08/30/20 08:36 73 123/65 08/30/20 08:35 123/65 08/30/20 08:00 98.1 F 77 13 123/65 90 L 08/30/20 06:00 13 99/57 L 91 L 08/30/20 04:00 97.9 F 12 107/60 93 L 08/30/20 02:00 12 112/61 93 L 08/30/20 00:00 12 90/46 L 91 L 08/29/20 23:00 14 107/57 L 94 L 08/29/20 22:00 18 104/74 97 Pulse Ox 08/30/20 09:05 90 L 08/30/20 08:36 08/30/20 08:35 08/30/20 08:00 08/30/20 06:00 08/30/20 04:00 08/30/20 02:00 08/30/20 00:00 08/29/20 23:00 08/29/20 22:00 - Problem List Review Problem List Initiated/Reviewed/Updated: Yes - My Orders Last 24 Hours: My Active Orders 08/30/20 09:43 MARY Hose [Antiembolic Hose] [OM.PC] Routine 08/30/20 09:48 HYDROmorphone [Dilaudid] 4 mg PO Q4H PRN 08/30/20 09:53 HYDROmorphone [Dilaudid] 1 mg IVPUSH Q4H PRN 08/30/20 10:00 Furosemide [Lasix] 40 mg IVPUSH BID Potassium Chloride [Klor-Con M20] 40 meq PO BID 08/31/20 05:00 BASIC METABOLIC PANEL,BMP [CHEM] Routine - Plan Plan:: ASSESSMENT AND PLAN Colitis with rectal bleeding. and abdominal pain-abdominal pain has improved as has diarrhea but not totally resolved -Pain and nausea management - Pain control add Dilaudid po and IV to see if this helps to control her pain better. -On IV meropenem Bilateral pneumonia-Viral versus bacterial, white blood cell count is now within normal range -Blood cultures pending -Discontinue IV vancomycin -Continue IV meropenem Hypoxic respiratory failure-secondary to bilateral pneumonia. Oxygenation has improved over the past several days. She is on nasal cannula at 6 L/min. Has BiPAP available, but has not used in the last 24 hours. -Furosemide 40 mg IV twice today (potassium replacement and lab monitoring) -Supplemental oxygen as needed -Noninvasive positive pressure ventilation Hypertension -continue outpatient medications Chronic pancreatitis- amylase and lipase are normal range -continue outpatient medication Edema - hypotension after lasix and additional pain medication. Will hold tonight's dose of Lasix. - IV lasix BID today - Thigh high MARY hose - monitor labs Hyperglycemia - - accuchecks QID with sliding scale - consistent carb diet Maintenance issues - - DVT prophylaxis -SCD - GI prophylaxis -IV PPI Protonix 40 mg every 12 hours - Nutrition -full liquid - Colon catheter -not indicated at this time CODE STATUS -full code Admission justification -this patient will be admitted for inpatient services and is medically appropriate meeting medical necessity for inpatient admission as outlined in my documentation. I reasonably expect the patient will require inpatient services that span a period time over 2 midnights. I reasonably expect this patient to be discharged or transferred within 96 hours [facility]. Disposition -I would anticipate discharge home after the hospital stay Primary care physician -Dr. Nash
[2020-08-30] MEDS: HYDROmorphone 2 MG Tab PO PRN ×2 (10:27→22:03)
[2020-08-30] MEDS: Potassium Chloride 20 MEQ Tab.ER PO SCH ×2 (10:27→21:57)
[2020-08-30] MEDS: HYDROmorphone 1 MG/ML Syringe IVPUSH PRN ×2 (11:28→23:05)
[2020-08-30] MEDS ORDERED: Rivaroxaban 10 MG Tab PO SCH (17:00)
[2020-08-30] MEDS ORDERED: Meropenem 1 GM in Sodium Chloride 0.9% 100 ML IV SCH (18:00)
[2020-08-30 18:27] VITALS: PULSE 76
[2020-08-30] MEDS: Mirtazapine 15 MG Tab PO SCH (21:57)
[2020-08-30] MEDS: Ondansetron 4 MG Tab.DIS PO PRN (23:16)
[2020-08-30] MEDS ORDERED: Aspirin 81 MG Tab.Chew PO ONE (23:41)
[2020-08-30] MEDS ORDERED: Aspirin 81 MG Tab.Chew ONE (23:43)
[2020-08-31] MEDS ORDERED: Ticagrelor 90 MG Tab PO ONE ×2 (00:05→00:16)
[2020-08-31] MEDS ORDERED: Heparin Sodium 5,000 Units/ML Vial IVPUSH ONE (00:05)
[2020-08-31 00:07] VITALS: BP 109/65
[2020-08-31] MEDS ORDERED: Heparin Sodium 5,000 Units/ML Vial ONE (00:09)
[2020-08-31] MEDS ORDERED: Morphine 4 MG/ML Syringe IVPUSH ONE (00:19)
--- NOTE | 2020-08-31 00:19 | PCM.DCSUM1 ---
Discharge Summary - Hospital Course Brief History: 60-year-old female with history of chronic pancreatitis, steroid-induced hyperglycemia who presented with diarrhea and some mild rectal bleeding as well as significant abdominal pain. She was admitted for management of colitis. Diagnosis: Stroke: No - Discharge Data Discharge Date: 08/31/20 Discharge Disposition: DC/Tfer to Acute Hospital 02 Condition: Critical - Referral to Home Health Primary Care Physician: PCP None - Discharge Diagnosis/Problem(s) (1) STEMI (ST elevation myocardial infarction) SNOMED Code(s): 08790961 ICD Code: I21.3 - ST ELEVATION (STEMI) MYOCARDIAL INFARCTION OF [facility] SITE Status: Acute Current Visit: Yes Qualifiers: Involved coronary artery: right coronary artery Qualified Code(s): I21.11 - ST elevation (STEMI) myocardial infarction involving right coronary artery (2) Hematochezia SNOMED Code(s): 105574502 ICD Code: K92.1 - MELENA Status: Acute Current Visit: Yes (3) Colitis SNOMED Code(s): 20919079 ICD Code: K52.9 - NONINFECTIVE GASTROENTERITIS AND COLITIS, UNSPECIFIED Status: Acute Current Visit: Yes (4) Fluid overload SNOMED Code(s): 89562019 ICD Code: E87.70 - FLUID OVERLOAD, UNSPECIFIED Status: Acute Current Visit: Yes (5) Hyperglycemia SNOMED Code(s): 80003653 ICD Code: R73.9 - HYPERGLYCEMIA, UNSPECIFIED Status: Acute Current Visit: No (6) Portal vein thrombosis SNOMED Code(s): 63481545 ICD Code: I81 - PORTAL VEIN THROMBOSIS Status: Acute Current Visit: No - Patient Summary/Data Consults: Consultations 08/20/20 22:24 Consult to Physician [CONS] Routine Consulting Provider: Patrick Marsh Call Completed to Consulting Physician: Yes: consult at 1907 Reason for Consult: [place] Date Notified: 08/20/20 Time Notified: 19:09 08/30/20 10:03 PT Evaluation and Treatment [CONS] Routine Please Evaluate and Treat. PT Reason for Consult: Strengthening This query below is only for informational purposes and is not editable. Admission Diagnosis/Problem: Colitis Hospital Course: Flavio presented to the emergency room with abdominal pain as well as diarrhea and some rectal bleeding. Work-up in the emergency room revealed evidence for anemia with a hemoglobin of 7.9 as well as evidence for colitis based on a CT scan. There is no evidence for pancreatitis at the time of presentation. The case was discussed with the hospitalist at the [facility] because the patient had been seen by gastroenterology there recently. The patient was a dmitted to the hospital and started on a combination of ciprofloxacin and metronidazole to cover bacterial infection as well as IV steroids in the form of Solu-Medrol in case this was inflammatory bowel disease. She was given 2 units of packed red blood cells at the time of admission with a hemoglobin of 7.9. Over the next couple of days we did see improvement in her hemoglobin with a rise up to 9.7. There was no more rectal bleeding and her hemoglobin remained stable there. Her diarrhea improved and she seemed to be improving initially. Unfortunately her respiratory status started to decline after about 3 days in the hospital. She had increasing shortness of breath and increasing oxygen requirements. She was transferred to the intensive care unit and started on noninvasive positive pressure ventilation. A repeat CT scan of the abdomen and pelvis was performed and this showed significant improvement in the colitis but showed new infiltrates in the chest that were either infectious versus inflammatory versus fluid. She was started on broad-spectrum antibiotics in addition to the ciprofloxacin and metronidazole in case this was infectious. Repeat cultures were obtained. Over the next few days we did see improvement in her respiratory status. We were able to wean her off the noninvasive ventilation and with diuresis were able to decrease her supplemental oxygen requirements. The patient had been making steady improvements. Her abdominal pain had been improving. She had not had any recurrent rectal bleeding. All of her laboratory studies were stable. She had taken a walk on the evening of discharge shortly thereafter developed some burning chest pain. An EKG was obtained which showed ST elevation in leads II, III and aVF as well as depressions in 1 and aVL. She received 324 mg of aspirin. The cardiology team was consulted at [facility] in [place]. The EKG was faxed. They recommended the 180 mg of ticagrelor as well as 4000 units of heparin. The patient will be transferred urgently for emergent cardiology evaluation. Troponin is 0.6. It is noted that she has had recent rectal bleeding but this resolved very quickly after treatment for her colitis. I think that the benefits of treating the STEMI and potentially additional anticoagulation far outweigh the risks of bleeding at this time. She has had 3 separate COVID-19 tests on August 20, and . These were all negative. She does not normally take anything to manage diabetes but has had hyperglycemia related to her steroids. This has been managed with sliding scale insulin. We have completed a course of antibiotics for the colitis and the ciprofloxacin and metronidazole have been discontinued. She has been on meropenem empirically in case this was a bacterial pneumonia. All of her cultures have been negative. I suspect the respiratory issues have been volume overload and she has been improving with diuresis but does still have some excess weight/volume on board. - Patient Instructions Diet: NPO Activity: Bedrest Other/Special Instructions: Transfer to [facility] for STEMI - Discharge Plan *PRESCRIPTION DRUG MONITORING PROGRAM REVIEWED*: Not Applicable *COPY OF PRESCRIPTION DRUG MONITORING REPORT IN PATIENT DARNELL: Not Applicable Home Medications: Home Meds Losartan [Cozaar] 100 mg PO DAILY 06/20/18 [History] Ondansetron [Zofran ODT] 4 mg PO Q6H PRN #7 tab.dis 10/10/18 [Rx] cycloSPORINE [Restasis] 1 drop EYEBOTH BID 02/03/19 [History] Omeprazole 40 mg PO DAILY 02/04/19 [History] amLODIPine [Norvasc] 10 mg PO DAILY 02/04/19 [History] Magnesium Oxide 400 mg PO BID #60 tablet 02/11/19 [Rx] Cholecalciferol (Vitamin D3) [Vitamin D3] 2,000 unit PO BID 05/14/19 [History] carvediloL [Carvedilol] 6.25 mg PO BID 05/14/19 [History] Potassium Gluconate [Potassium] 1 tab PO BID 08/31/19 [History] Acetaminophen/HYDROcodone [Arapaho 325-5 MG] 1 - 2 tab PO Q6H PRN 11/15/19 [History] Mirtazapine 1 tab PO BEDTIME 11/15/19 [History] Amylase/Lipase/Protease [Creon DR 24,000 Unit] 3 cap PO TIDAC 11/17/19 [History] Rivaroxaban [Xarelto] 15 mg PO BID 08/20/20 [History] Oxygen Therapy Mode: Nasal Cannula Oxygen Flow Rate (L/min): 4 Forms: ED Department Discharge Referrals: PCP,None [Primary Care Provider] - - Discharge Summary/Plan Comment DC Time >30 min.: Yes (60 - transfer to acute hospital ) - Patient Data Vitals - Most Recent: Last Vital Signs Temp 36.3 C 08/30/20 20:00 Pulse 76 08/30/20 18:00 Resp 14 08/31/20 00:00 BP 109/65 08/31/20 00:00 Pulse Ox 91 L 08/31/20 00:00 Weight - Most Recent: 82.418 kg I&O - Last 24 hours: Intake & Output 08/30/20 08/30/20 08/31/20 14:59 22:59 06:59 Intake Total 760 820 Output Total 625 200 Balance 135 620 Lab Results - Last 24 hrs: Laboratory Results - last 24 hr 08/20/20 08/30/20 Range/Units 17:31 06:00 Sodium 140 (140-148) mmol/L Potassium 3.3 L (3.6-5.2) mmol/L Chloride 101 (100-108) mmol/L Carbon Dioxide 33 H (21-32) mmol/L Anion Gap 9.3 (5.0-14.0) mmol/L BUN 25 H (7-18) mg/dL Creatinine 1.1 H (0.6-1.0) mg/dL Est Cr Clr Drug Dosing 49.55 mL/min Estimated GFR (MDRD) 51 L (>60) Glucose 224 H (74-106) mg/dL Calcium 9.7 (8.5-10.1) mg/dL Crossmatch See Detail Med Orders - Current: Current Medications Hydrocodone Bitart/Acetaminophen (Arapaho 325-5 Mg) 2 tab PO Q4H PRN PRN Reason: Pain Last Admin: 08/30/20 08:54 Dose: 2 tab Documented by: Albuterol (Proventil Neb Soln) 2.5 mg NEB Q4H PRN PRN Reason: Shortness Of Breath/wheezing Last Admin: 08/22/20 23:34 Dose: 2.5 mg Documented by: Amlodipine Besylate (Norvasc) 10 mg PO DAILY [facility] Last Admin: 08/30/20 08:36 Dose: 10 mg Documented by: Lipase/Protease/Amylase (Laquita Hilario 12,000 Units) 6 cap PO TIDAC [facility] Last Admin: 08/30/20 17:39 Dose: 6 cap Documented by: Carvedilol (Coreg) 6.25 mg PO BIDMEALS [facility] Last Admin: 08/30/20 16:56 Dose: Not Given Documented by: Dextrose (Glutose 15) 15 gm PO ASDIRECTED PRN PRN Reason: Hypoglycemia Dextrose/Water (Dextrose 50% In Water) 50 ml IVPUSH ASDIRECTED PRN PRN Reason: Hypoglycemia Glucagon (Glucagen) 1 mg IM ASDIRECTED PRN PRN Reason: Hypoglycemia Heparin Sodium (Porcine) (Heparin Lock Flush 100 Units/Ml) 500 units FLUSH ASDIRECTED PRN PRN Reason: flush Last Admin: 08/30/20 17:52 Dose: 500 units Documented by: Heparin Sodium (Porcine) (Heparin Sodium) 4,000 units IVPUSH .BOLUS ONE Stop: 08/31/20 00:06 Hydromorphone HCl (Dilaudid) 4 mg PO Q4H PRN PRN Reason: Pain (moderate 4-6) Last Admin: 08/30/20 22:03 Dose: 4 mg Documented by: Hydromorphone HCl (Dilaudid) 1 mg IVPUSH Q4H PRN PRN Reason: Pain (severe 7-10) Last Admin: 08/30/20 23:05 Dose: 1 mg Documented by: Meropenem 1 gm/ Sodium (Chloride) 100 mls @ 200 mls/hr IV Q8H [facility] Last Admin: 08/30/20 17:32 Dose: 200 mls/hr Documented by: Insulin Human Lispro (Humalog) 0 unit SUBCUT QIDACANDBED [facility]; Protocol Last Admin: 08/30/20 21:09 Dose: 3 units Documented by: Lactobacillus Rhamnosus (Culturelle) 1 cap PO BID [facility] Last Admin: 08/30/20 21:57 Dose: 1 cap Documented by: Losartan Potassium (Cozaar) 100 mg PO DAILY [facility] Last Admin: 08/30/20 08:35 Dose: 100 mg Documented by: Magnesium Oxide (Magnesium Oxide) 400 mg PO BID [facility] Last Admin: 08/30/20 21:57 Dose: 400 mg Documented by: Mirtazapine (Remeron) 15 mg PO BEDTIME [facility] Last Admin: 08/30/20 21:57 Dose: 15 mg Documented by: Cyclosporine ( Restasis) 1 Drop Pom 1 drop EYEBOTH BID [facility] Last Admin: 08/30/20 21:58 Dose: Not Given Documented by: Ondansetron HCl (Zofran Odt) 4 mg PO Q4H PRN PRN Reason: Nausea/Vomiting Last Admin: 08/30/20 23:16 Dose: 4 mg Documented by: Pantoprazole Sodium (Protonix Granules) 40 mg PO ACBREAKFAST [facility] Last Admin: 08/30/20 08:35 Dose: 40 mg Documented by: Potassium Chloride (Potassium Chloride) 10 meq PO DAILY [facility] Last Admin: 08/30/20 08:37 Dose: 10 meq Documented by: Potassium Chloride (Klor-Con M20) 40 meq PO BID [facility] Last Admin: 08/30/20 21:57 Dose: 40 meq Documented by: Rivaroxaban (Xarelto) 20 mg PO WITHDINNER [facility] Last Admin: 08/30/20 17:39 Dose: 20 mg Documented by: Ticagrelor (Brilinta) 180 mg PO ONETIME ONE Stop: 08/31/20 00:06 Discontinued Medications Hydrocodone Bitart/Acetaminophen ([place]rapaho 325-5 Mg) 1 tab PO Q4H PRN PRN Reason: Abdominal Pain Last Admin: 08/21/20 10:16 Dose: 1 tab Documented by: Hydrocodone Bitart/Acetaminophen ([place]aho 325-5 Mg) 1 - 2 tab PO Q6H PRN PRN Reason: Pain Last Admin: 08/27/20 07:58 Dose: 1 tab Documented by: Aspirin (Aspirin) 324 mg PO ONETIME ONE Stop: 08/30/20 23:42 Last Admin: 08/30/20 23:53 Dose: 324 mg Documented by: Aspirin (Aspirin) Confirm Administered Dose 324 mg .ROUTE .STK-MED ONE Stop: 08/30/20 23:44 Last Admin: 08/30/20 23:59 Dose: Not Given Documented by: Furosemide (Lasix) 40 mg IVPUSH DAILY [facility] Last Admin: 08/23/20 08:43 Dose: 40 mg Documented by: Furosemide (Lasix) 40 mg IVPUSH ONETIME STA Stop: 08/22/20 17:04 Last Admin: 08/22/20 17:18 Dose: 40 mg Documented by: Furosemide (Lasix) 20 mg IVPUSH ONETIME ONE Stop: 08/23/20 00:02 Last Admin: 08/23/20 00:19 Dose: 20 mg Documented by: Furosemide (Lasix) 20 mg IVPUSH ONETIME ONE Stop: 08/23/20 03:41 Last Admin: 08/23/20 04:00 Dose: 20 mg Documented by: Furosemide (Lasix) 20 mg IVPUSH ONETIME ONE Stop: 08/24/20 04:08 Last Admin: 08/24/20 04:26 Dose: 20 mg Documented by: Furosemide (Lasix) 40 mg IVPUSH ONETIME ONE Stop: 08/24/20 13:01 Last Admin: 08/24/20 13:30 Dose: 40 mg Documented by: Furosemide (Lasix) 40 mg IVPUSH NOW ONE Stop: 08/25/20 16:01 Last Admin: 08/25/20 16:47 Dose: 40 mg Documented by: Furosemide (Lasix) 40 mg IVPUSH NOW ONE Stop: 08/26/20 17:01 Last Admin: 08/26/20 17:51 Dose: 40 mg Documented by: Furosemide (Lasix) 40 mg IVPUSH NOW ONE Stop: 08/27/20 08:31 Last Admin: 08/27/20 10:35 Dose: 40 mg Documented by: Furosemide (Lasix) 40 mg IVPUSH NOW ONE Stop: 08/28/20 11:31 Last Admin: 08/28/20 11:32 Dose: 40 mg Documented by: Furosemide (Lasix) 40 mg IVPUSH NOW ONE Stop: 08/28/20 19:31 Last Admin: 08/28/20 19:39 Dose: 40 mg Documented by: Furosemide (Lasix) 40 mg IVPUSH NOW ONE Stop: 08/29/20 08:36 Last Admin: 08/29/20 09:32 Dose: 40 mg Documented by: Furosemide (Lasix) 40 mg IVPUSH NOW ONE Stop: 08/29/20 18:01 Last Admin: 08/29/20 17:32 Dose: 40 mg Documented by: Furosemide (Lasix) 40 mg IVPUSH BID [facility] Stop: 08/30/20 21:01 Last Admin: 08/30/20 10:29 Dose: 40 mg Documented by: Haloperidol Lactate (Haldol) 5 mg IVPUSH Q6H PRN PRN Reason: Agitation Last Admin: 08/22/20 21:08 Dose: 5 mg Documented by: Haloperidol Lactate (Haldol) 2.5 - 5 mg IVPUSH Q6H [facility] Haloperidol Lactate (Haldol) 2.5 - 5 mg IVPUSH Q6H PRN PRN Reason: Agitation Last Admin: 08/25/20 20:45 Dose: 2.5 mg Documented by: Heparin Sodium (Porcine) (Heparin Lock Flush 100 Units/Ml) Confirm Administered Dose 500 units .ROUTE .STK-MED ONE Stop: 08/23/20 04:22 Last Admin: 08/23/20 04:50 Dose: 500 units Documented by: Hydromorphone HCl (Dilaudid) 0.5 mg IVPUSH ONETIME ONE Stop: 08/20/20 15:48 Last Admin: 08/20/20 16:31 Dose: 0.5 mg Documented by: Hydromorphone HCl (Dilaudid) 1 mg IVPUSH ONETIME ONE Stop: 08/20/20 17:38 Last Admin: 08/20/20 17:52 Dose: 1 mg Documented by: Hydromorphone HCl (Dilaudid) 1 mg IVPUSH ONETIME ONE Stop: 08/20/20 21:04 Last Admin: 08/20/20 21:23 Dose: 1 mg Documented by: Hydromorphone HCl (Dilaudid) 1 mg IVPUSH Q4H PRN PRN Reason: Abdominal Pain Last Admin: 08/27/20 10:45 Dose: 1 mg Documented by: Sodium Chloride (Normal Saline) 1,000 mls @ 200 mls/hr IV ASDIRECTED [facility] Last Admin: 08/20/20 18:17 Dose: 999 mls/hr Documented by: Sodium Chloride (Normal Saline) 80 mls @ 3.5 mls/sec IV ASDIRECTED [facility] Stop: 08/20/20 16:01 Last Admin: 08/20/20 16:50 Dose: 3.5 mls/sec Documented by: Potassium Chloride 20 meq/ (Premix) 100 mls @ 50 mls/hr IV ONETIME ONE Stop: 08/20/20 19:29 Last Admin: 08/20/20 17:51 Dose: 50 mls/hr Documented by: Sodium Chloride (Normal Saline) 1,000 mls @ 999 mls/hr IV ASDIRECTED [facility] Sodium Chloride (Normal Saline) 1,000 mls @ 25 mls/hr IV ASDIRECTED [facility] Last Admin: 08/22/20 06:50 Dose: 125 mls/hr Documented by: Ciprofloxacin/Dextrose 400 mg/ (Premix) 200 mls @ 200 mls/hr IV Q12H [facility] Last Admin: 08/23/20 08:11 Dose: 200 mls/hr Documented by: Metronidazole 500 mg/ Premix 100 mls @ 100 mls/hr IV Q8H [facility] Last Admin: 08/21/20 08:54 Dose: Not Given Documented by: Ciprofloxacin/Dextrose 400 mg/ (Premix) 200 mls @ 200 mls/hr IV ONETIME ONE Stop: 08/20/20 23:44 Last Admin: 08/20/20 23:16 Dose: 200 mls/hr Documented by: Potassium Chloride 40 meq/ (Premix) 100 mls @ 25 mls/hr IV ONETIME ONE Stop: 08/21/20 09:40 Last Admin: 08/21/20 05:59 Dose: 25 mls/hr Documented by: Metronidazole 500 mg/ Premix 100 mls @ 100 mls/hr IV Q8H [facility] Stop: 08/28/20 23:59 Last Admin: 08/28/20 18:19 Dose: 100 mls/hr Documented by: Potassium Chloride 20 meq/ (Premix) 100 mls @ 50 mls/hr IV ONETIME ONE Stop: 08/22/20 11:29 Last Admin: 08/22/20 10:18 Dose: 50 mls/hr Documented by: Meropenem 1 gm/ Sodium (Chloride) 100 mls @ 200 mls/hr IV Q8H [facility] Last Admin: 08/29/20 10:01 Dose: 200 mls/hr Documented by: Potassium Chloride 40 meq/ (Premix) 100 mls @ 25 mls/hr IV ONETIME ONE Stop: 08/23/20 14:29 Last Admin: 08/23/20 10:06 Dose: 25 mls/hr Documented by: Magnesium Sulfate 2 gm/ Premix 50 mls @ 25 mls/hr IV ONETIME ONE Stop: 08/23/20 12:29 Last Admin: 08/23/20 10:05 Dose: 25 mls/hr Documented by: Vancomycin HCl 1.2 gm/ Sodium (Chloride) 250 mls @ 167 mls/hr IV Q12H [facility] Last Admin: 08/24/20 21:56 Dose: 167 mls/hr Documented by: Vancomycin HCl 1.2 gm/ Sodium (Chloride) 250 mls @ 167 mls/hr IV Q24H [facility] Last Admin: 08/28/20 00:25 Dose: Not Given Documented by: Vancomycin HCl 1.1 gm/ Sodium (Chloride) 250 mls @ 167 mls/hr IV Q24H [facility] Last Admin: 08/29/20 11:25 Dose: 167 mls/hr Documented by: Meropenem 1 gm/ Sodium (Chloride) 100 mls @ 200 mls/hr IV Q12H [facility] Last Admin: 08/30/20 09:49 Dose: 200 mls/hr Documented by: Insulin Human Lispro (Humalog) 10 unit SUBCUT ONETIME ONE Stop: 08/29/20 05:55 Last Admin: 08/29/20 06:03 Dose: 10 units Documented by: Insulin Human Lispro (Humalog) 0 unit SUBCUT QIDACANDBED [facility]; Protocol Last Admin: 08/30/20 08:34 Dose: 4 units Documented by: Iopamidol (Isovue-300 (61%)) 102 ml IV ONETIME ONE Stop: 08/20/20 15:54 Last Admin: 08/20/20 16:50 Dose: 102 ml Documented by: Lorazepam (Ativan) 1 mg IVPUSH Q4H PRN PRN Reason: Anxiety Last Admin: 08/22/20 18:35 Dose: 1 mg Documented by: Methylprednisolone Sodium Succinate (Solu-Medrol) 40 mg IVPUSH Q8H [facility] Last Admin: 08/26/20 15:40 Dose: 40 mg Documented by: Methylprednisolone Sodium Succinate (Solu-Medrol) 40 mg IVPUSH ONETIME ONE Stop: 08/20/20 23:01 Last Admin: 08/20/20 23:09 Dose: 40 mg Documented by: Methylprednisolone Sodium Succinate (Solu-Medrol) 40 mg IVPUSH Q24H [facility] Last Admin: 08/28/20 16:34 Dose: 40 mg Documented by: Potassium Gluconate (1 TabPom) 1 tab PO BID [facility] Last Admin: 08/23/20 20:08 Dose: Not Given Documented by: Ondansetron HCl (Zofran) 4 mg IVPUSH ONETIME ONE Stop: 08/20/20 16:29 Last Admin: 08/20/20 17:13 Dose: 4 mg Documented by: Pantoprazole Sodium (Protonix Iv) 40 mg IV Q12H [facility] Last Admin: 08/24/20 11:41 Dose: 40 mg Documented by: Pantoprazole Sodium (Protonix Iv) 40 mg IV DAILY [facility] Last Admin: 08/29/20 09:32 Dose: 40 mg Documented by: Potassium Chloride (Klor-Con M20) 40 meq PO ONETIME ONE Stop: 08/23/20 10:01 Last Admin: 08/23/20 10:19 Dose: 40 meq Documented by: Potassium Chloride (Klor-Con M20) 40 meq PO ONETIME ONE Stop: 08/25/20 08:31 Last Admin: 08/25/20 08:49 Dose: 40 meq Documented by: Potassium Chloride (Klor-Con M20) 40 meq PO ONETIME ONE Stop: 08/25/20 15:31 Last Admin: 08/25/20 16:02 Dose: 40 meq Documented by: Potassium Chloride (Potassium Chloride) 40 meq PO ONETIME ONE Stop: 08/27/20 10:31 Last Admin: 08/27/20 10:37 Dose: 40 meq Documented by: Potassium Chloride (Potassium Chloride) 40 meq PO ONETIME ONE Stop: 08/27/20 13:31 Last Admin: 08/27/20 13:42 Dose: 40 meq Documented by: Sodium Chloride (Saline Flush) 10 ml FLUSH ONETIME ONE Stop: 08/20/20 15:54 Last Admin: 08/20/20 16:50 Dose: 10 ml Documented by:
[2020-08-31] MEDS ORDERED: Morphine 4 MG/ML Syringe ONE (00:27)
== END 2020-08-31 01:00 | DRG 391 ==
LOC: JP.ED 14:14 → JP.ICU 20:49
PROVIDERS: ADMIT Family Medicine; ATTEND Internal Medicine
PROC: 30233N1 Transfusion of Nonautologous Red Blood Cells into Peripheral Vein, Percutaneous Approach (ICD-10-PCS; principal; 2020-08-20)
PROC: 5A09457 Assistance with Respiratory Ventilation, 24-96 Consecutive Hours, Continuous Positive Airway Pressure (ICD-10-PCS; 2020-08-22)
DX: K52.9 Noninfective gastroenteritis and colitis, unspecified (principal); I21.3 ST elevation (STEMI) myocardial infarction of unspecified site; R10.10 Upper abdominal pain, unspecified; I81 Portal vein thrombosis; J18.9 Pneumonia, unspecified organism; J80 Acute respiratory distress syndrome; K86.1 Other chronic pancreatitis; E11.9 Type 2 diabetes mellitus without complications; K92.1 Melena; E87.70 Fluid overload, unspecified; D64.9 Anemia, unspecified; Z20.828 Contact with and (suspected) exposure to other viral communicable diseases; Z79.01 Long term (current) use of anticoagulants; E11.65 Type 2 diabetes mellitus with hyperglycemia; T38.0X5A Adverse effect of glucocorticoids and synthetic analogues, initial encounter; H54.7 Unspecified visual loss; F41.9 Anxiety disorder, unspecified; Z96.659 Presence of unspecified artificial knee joint; Z96.649 Presence of unspecified artificial hip joint; F32.9 Major depressive disorder, single episode, unspecified; I10 Essential (primary) hypertension; Z88.5 Allergy status to narcotic agent; Z88.2 Allergy status to sulfonamides; Z88.1 Allergy status to other antibiotic agents; Z79.4 Long term (current) use of insulin; Z88.6 Allergy status to analgesic agent; Z88.8 Allergy status to other drugs, medicaments and biological substances; Z91.018 Allergy to other foods; Z90.49 Acquired absence of other specified parts of digestive tract; Z90.89 Acquired absence of other organs; Z87.891 Personal history of nicotine dependence; Z79.899 Other long term (current) drug therapy
CPT/HCPCS: 36415; 36430; 71045; 74177; 80053; 82150; 83690; 85025; 85610; 86140; 86850; 86900; 86901; 86920; 86922; 96365; 96366; 96375; 96376; 99285 ×2; J1170 ×2; J2405; J3480; J7030 ×2; P9016; Q9967; U0002; 36600; 51702; 74176; 80048; 80202; 82803; 82962; 83605; 83735; 83880; 84132; 84484; 85027; 87040; 87804; 87804-59; 94640; 94660; 94762; A9270-GY; C9113; J0744; J1630; J1642; J1644; J1815; J1940; J2060; J2185; J2270; J2920; J3370; J3475; J3490; J7050

== ENCOUNTER 2020-10-09 10:06 | Emergency (ER) | payer MEDICARE ==
[2020-10-09] MEDS ORDERED: Aspirin 81 MG Tab.Chew PO ONE (10:31)
[2020-10-09] MEDS ORDERED: Sodium Chloride 0.9% 10 ML Syringe FLUSH PRN (10:31)
--- NOTE | 2020-10-09 10:36 | EDM.PDOC ---
ED HPI GENERAL MEDICAL PROBLEM - General Chief Complaint: Chest Pain Stated Complaint: SOB,CHEST PAIN Time Seen by Provider: 10/09/20 10:22 Source of Information: Reports: Patient, Family, RN Notes Reviewed History Limitations: Reports: No Limitations - History of Present Illness INITIAL COMMENTS - FREE TEXT/NARRATIVE: 60-year-old female presents emergency department a complaint of chest pain pressure, she recently had a myocardial infarction approximately 1 month ago treated Bentley Davis stenting x1. She states she has been home she has been doing well and then last night about 1030 started having chest pressure and palpitations had continued this morning now rates pain 5 out of 10 does feel short of breath with some nausea no diaphoresis Chest Pain Score (Numeric/FACES): 4 - Related Data Allergies Allergy/AdvReac Type Severity Reaction Status Date / Time acetaminophen Allergy Severe Hives Verified 08/20/20 14:25 [From Darvocet-N 100] codeine Allergy Severe Hives Verified 08/20/20 14:25 iodine Allergy Severe Hives Verified 08/20/20 14:25 propoxyphene napsylate Allergy Severe Hives Verified 08/20/20 14:25 [From Darvocet-N 100] Sulfa (Sulfonamide Allergy Severe Hives Verified 08/20/20 14:25 Antibiotics) sulfamethoxazole Allergy Severe Rash Verified 08/20/20 14:25 [From Bactrim] trimethoprim [From Bactrim] Allergy Severe Rash Verified 08/20/20 14:25 barley Allergy Rash Verified 08/20/20 14:25 tramadol AdvReac Severe Anxiety Verified 08/20/20 16:10 Home Meds: Home Meds Ondansetron [Zofran ODT] 4 mg PO Q6H PRN #7 tab.dis 10/10/18 [Rx] cycloSPORINE [Restasis] 1 drop EYEBOTH BID 02/03/19 [History] Omeprazole 40 mg PO DAILY 02/04/19 [History] Magnesium Oxide 400 mg PO BID #60 tablet 02/11/19 [Rx] Cholecalciferol (Vitamin D3) [Vitamin D3] 2,000 unit PO BID 05/14/19 [History] Potassium Gluconate [Potassium] 1 tab PO BID 08/31/19 [History] Acetaminophen/HYDROcodone [[place] 325-5 MG] 1 - 2 tab PO Q6H PRN 11/15/19 [History] Mirtazapine 1 tab PO BEDTIME 11/15/19 [History] Amylase/Lipase/Protease [Laquita THOMAS 24,000 Unit] 3 cap PO TIDAC 11/17/19 [History] Rivaroxaban [Xarelto] 15 mg PO BID 08/20/20 [History] Clopidogrel [Plavix] 75 mg PO DAILY 10/09/20 [History] Escitalopram Oxalate [Lexapro] 20 mg PO DAILY 10/09/20 [History] Ezetimibe 10 mg PO DAILY 10/09/20 [History] Furosemide [Lasix] 20 mg PO DAILY 10/09/20 [History] Metoprolol Succinate [Toprol Xl] 25 mg PO DAILY 10/09/20 [History] Midodrine 2.5 mg PO TID 10/09/20 [History] Rivaroxaban [Xarelto] 15 mg PO BID 10/09/20 [History] Past Medical History HEENT History: Reports: Impaired Vision Cardiovascular History: Reports: Hypertension Respiratory History: Reports: Other (See Below) Other Respiratory History: ARDS in Aug 2019 Gastrointestinal History: Reports: Cholelithiasis, 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 [employer] History: Reports: Neurological History: Reports: Concussion Psychiatric History: Reports: Addiction, Anxiety, Depression Other Psychiatric History: [place] Endocrine/Metabolic History: Reports: Diabetes, Type II Hematologic History: Reports: Blood Transfusion(s) - Infectious Disease History Infectious Disease History: Reports: Chicken Pox, Measles, Mumps - Past Surgical History Head Surgeries/Procedures: Reports: None HEENT Surgical History: Reports: Tonsillectomy Cardiovascular Surgical History: Reports: None GI Surgical History: Reports: Appendectomy, Cholecystectomy, EGD, ERCP Female Surgical History: Reports: Section Endocrine Surgical History: Reports: None Musculoskeletal Surgical History: Reports: Arthroscopic Knee, Hip Replacement, Knee Replacement, Shoulder Surgery, Other (See Below) Other Musculoskeletal Surgeries/Procedures:: "rotator cuff surgery" Dermatological Surgical History: Reports: None Social & Family History - Family History Family Medical History: No Pertinent Family History HEENT: Reports: None Cardiac: Reports: None Respiratory: Reports: None GI: Reports: 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 : Reports: Pyelonephritis, UTI, Recurrent OBGYN: Reports: None Musculoskeletal: Reports: Arthritis Neurological: Reports: None Psychiatric: Reports: None Endocrine/Metabolic: Reports: Diabetes, type II Hematologic: Reports: None Immunologic: Reports: None Dermatologic: Reports: None Oncologic: Reports: None - Tobacco Use Tobacco Use Status *Q: Never Tobacco User - Caffeine Use Caffeine Use: Reports: None - Recreational Drug Use Recreational Drug Use: No - Living Situation & Occupation Living situation: Reports: with Significant Other (lives with Boyfriend in [place], [place].) Occupation: Disabled ED ROS GENERAL - Review of Systems Review Of Systems: See Below Constitutional: Reports: No Symptoms. Denies: Diaphoresis HEENT: Reports: No Symptoms Respiratory: Reports: Shortness of Breath Cardiovascular: Reports: Chest Pain, Dyspnea on Exertion GI/Abdominal: Reports: Nausea. Denies: Vomiting : Reports: No Symptoms Musculoskeletal: Reports: No Symptoms ED EXAM, GENERAL - Physical Exam Exam: See Below Exam Limited By: No Limitations General Appearance: Alert, WD/WN, No Apparent Distress Respiratory/Chest: No Respiratory Distress, Lungs Clear, Normal Breath Sounds, No Accessory Muscle Use, Chest Non-Tender Cardiovascular: Regular Rate, Rhythm, No Murmur GI/Abdominal: Soft, Non-Tender Extremities: No Pedal Edema Course - Vital Signs Last Recorded V/S: Last Vital Signs Temp 96.8 F L 10/09/20 10:21 Pulse 65 10/09/20 16:40 Resp 12 10/09/20 16:40 BP 122/77 10/09/20 16:40 Pulse Ox 93 L 10/09/20 16:40 - Orders/Labs/Meds Orders: Active Orders 24 hr Category Date Time Status Cardiac Monitoring [RC] .As Directed Care 10/09/20 10:32 Active EKG Documentation Completion [RC] ASDIRECTED Care 10/09/20 10:33 Active Peripheral IV Care [RC] . DIRECTED Care 10/09/20 10:33 Active Chest 1V Frontal [CR] Stat Exams 10/09/20 10:33 Taken Morphine Med 10/09/20 10:31 Active 4 mg IVPUSH Q10M PRN Nitroglycerin [Nitrostat] Med 10/09/20 10:31 Active 0.4 mg SL Q5M PRN Sodium Chloride 0.9% [Saline Flush] Med 10/09/20 10:31 Active 10 ml FLUSH ASDIRECTED PRN Peripheral IV Insertion Adult [OM.PC] Stat Oth 10/09/20 10:31 Ordered Saline Lock Insert [OM.PC] Stat Oth 10/09/20 10:31 Ordered EKG 12 Lead [EK] Stat Ther 10/09/20 10:33 Ordered Medication Orders Morphine Sulfate (Morphine) 4 mg IVPUSH Q10M PRN PRN Reason: Chest Pain Stop: 10/10/20 10:32 Last Admin: 10/09/20 14:10 Dose: 4 mg Documented by: Admin: 10/09/20 12:23 Dose: 4 mg Documented by: ELENA Nitroglycerin (Nitrostat) 0.4 mg SL Q5M PRN PRN Reason: Chest Pain Stop: 10/10/20 10:32 Last Admin: 10/09/20 11:47 Dose: 0.4 mg Documented by: Admin: 10/09/20 10:40 Dose: 0.4 mg Documented by: [id number] Sodium Chloride (Saline Flush) 10 ml FLUSH ASDIRECTED PRN PRN Reason: Keep Vein Open Last Admin: 10/09/20 10:49 Dose: 10 ml Documented by: ELENA Labs: Laboratory Tests 10/09/20 10/09/20 10/09/20 Range/Units 10:50 10:50 10:50 WBC 5.9 (4.5-11.0) K/uL RBC 4.06 (3.30-5.50) M/uL Hgb 12.4 D (12.0-15.0) g/dL Hct 38.7 (36.0-48.0) % MCV 95 (80-98) fL MCH 31 (27-31) pg MCHC 32 (32-36) % Plt Count 106 L (150-400) K/uL Neut % (Auto) 61 (36-66) % Lymph % (Auto) 26 (24-44) % Rhea % (Auto) 10 H (2-6) % Eos % (Auto) 3 (2-4) % Baso % (Auto) 1 (0-1) % PT 15.0 H (9.5-12.0) sec INR 1.38 H (0.80-1.20) APTT 29.4 (27.0-36.0) sec Sodium 139 L (140-148) mmol/L Potassium 3.4 L (3.6-5.2) mmol/L Chloride 99 L (100-108) mmol/L Carbon Dioxide 29 (21-32) mmol/L Anion Gap 14.4 H (5.0-14.0) mmol/L BUN 15 (7-18) mg/dL Creatinine 1.3 H (0.6-1.0) mg/dL Est Cr Clr Drug Dosing 41.93 mL/min Estimated GFR (MDRD) 42 L (>60) Glucose 169 H (74-106) mg/dL Calcium 9.5 (8.5-10.1) mg/dL Magnesium (1.8-2.4) mg/dL Total Bilirubin 1.2 H (0.2-1.0) mg/dL AST 71 H D (15-37) U/L ALT 17 (12-78) U/L Alkaline Phosphatase 149 H (46-116) U/L Troponin I 0.049 (0.000-0.056) ng/mL Total Protein 6.1 L (6.4-8.2) g/dL Albumin 2.6 L (3.4-5.0) g/dL Globulin 3.5 (2.3-3.5) g/dL Albumin/Globulin Ratio 0.7 L (1.2-2.2) 10/09/20 10/09/20 10/09/20 Range/Units 13:01 15:00 16:19 WBC (4.5-11.0) K/uL RBC (3.30-5.50) M/uL Hgb (12.0-15.0) g/dL Hct (36.0-48.0) % MCV (80-98) fL MCH (27-31) pg MCHC (32-36) % Plt Count (150-400) K/uL Neut % (Auto) (36-66) % Lymph % (Auto) (24-44) % Rhea % (Auto) (2-6) % Eos % (Auto) (2-4) % Baso % (Auto) (0-1) % PT (9.5-12.0) sec INR (0.80-1.20) APTT (27.0-36.0) sec Sodium (140-148) mmol/L Potassium (3.6-5.2) mmol/L Chloride (100-108) mmol/L Carbon Dioxide (21-32) mmol/L Anion Gap (5.0-14.0) mmol/L BUN (7-18) mg/dL Creatinine (0.6-1.0) mg/dL Est Cr Clr Drug Dosing mL/min Estimated GFR (MDRD) (>60) Glucose (74-106) mg/dL Calcium (8.5-10.1) mg/dL Magnesium 1.5 L (1.8-2.4) mg/dL Total Bilirubin (0.2-1.0) mg/dL AST (15-37) U/L ALT (12-78) U/L Alkaline Phosphatase (46-116) U/L Troponin I 0.054 0.042 (0.000-0.056) ng/mL Total Protein (6.4-8.2) g/dL Albumin (3.4-5.0) g/dL Globulin (2.3-3.5) g/dL Albumin/Globulin Ratio (1.2-2.2) Meds: Medications Generic Name Dose Route Start Last Admin Trade Name Freq PRN Reason Stop Dose Admin Morphine Sulfate 4 mg 10/09/20 10:31 10/09/20 14:10 Morphine IVPUSH 10/10/20 10:32 4 mg Q10M PRN Administration Chest Pain Nitroglycerin 0.4 mg 10/09/20 10:31 10/09/20 11:47 Nitrostat SL 10/10/20 10:32 0.4 mg Q5M PRN Administration Chest Pain Sodium Chloride 10 ml 10/09/20 10:31 10/09/20 10:49 Saline Flush FLUSH 10 ml ASDIRECTED PRN Administration Keep Vein Open Discontinued Medications Generic Name Dose Route Start Last Admin Trade Name Freq PRN Reason Stop Dose Admin Aspirin 324 mg 10/09/20 10:31 10/09/20 10:37 Aspirin PO 10/09/20 10:32 324 mg ONETIME ONE Administration Ketorolac Tromethamine 30 mg 10/09/20 16:22 10/09/20 16:38 Toradol IVPUSH 10/09/20 16:23 30 mg ONETIME ONE Administration Departure - Departure Time of Disposition: 17:00 Disposition: Home, Self-Care 01 Condition: Poor Clinical Impression: Atypical chest pain Instructions: Nonspecific Chest Pain, Adult Referrals: Obi Alexandre MD [Primary Care Provider] - Forms: ED Department Discharge Additional Instructions: Use the Percocet as needed for pain control, please followup with your primary care provider in 3-5 days if not better, please call return to the emergency department with worsening of symptoms. Sepsis Event Note (ED) - Evaluation Sepsis Screening Result: No Definite Risk - Focused Exam Vital Signs: Vital Signs Temp Pulse Resp BP BP Pulse Ox 10/09/20 16:40 65 12 122/77 93 L 10/09/20 16:15 65 10 L 115/67 91 L 10/09/20 15:21 70 11 L 122/64 91 L 10/09/20 14:54 69 13 128/59 L 93 L 10/09/20 13:09 75 10 L 132/65 94 L 10/09/20 12:49 75 9 L 123/69 94 L 10/09/20 12:05 135 H 16 123/68 97 10/09/20 11:47 131/80 10/09/20 11:46 12 131/80 98 10/09/20 11:11 80 9 L 108/73 95 10/09/20 10:40 147/73 H 10/09/20 10:21 96.8 F L 76 16 147/73 H 98 - My Orders Last 24 Hours: My Active Orders 10/09/20 10:31 Morphine 4 mg IVPUSH Q10M PRN Nitroglycerin [Nitrostat] 0.4 mg SL Q5M PRN Sodium Chloride 0.9% [Saline Flush] 10 ml FLUSH ASDIRECTED PRN Peripheral IV Insertion Adult [OM.PC] Stat Saline Lock Insert [OM.PC] Stat 10/09/20 10:32 Cardiac Monitoring [RC] .As Directed 10/09/20 10:33 EKG Documentation Completion [RC] ASDIRECTED Peripheral IV Care [RC] . DIRECTED Chest 1V Frontal [CR] Stat EKG 12 Lead [EK] Stat - Assessment/Plan Last 24 Hours: My Active Orders 10/09/20 10:31 Morphine 4 mg IVPUSH Q10M PRN Nitroglycerin [Nitrostat] 0.4 mg SL Q5M PRN Sodium Chloride 0.9% [Saline Flush] 10 ml FLUSH ASDIRECTED PRN Peripheral IV Insertion Adult [OM.PC] Stat Saline Lock Insert [OM.PC] Stat 10/09/20 10:32 Cardiac Monitoring [RC] .As Directed 10/09/20 10:33 EKG Documentation Completion [RC] ASDIRECTED Peripheral IV Care [RC] . DIRECTED Chest 1V Frontal [CR] Stat EKG 12 Lead [EK] Stat Plan: Assessment Acuity = acute Site and laterality = atypical chest pain complicated patient with known history of coronary artery disease recent myocardial infarction 1 month ago Etiology = unknown Manifestations = none Location of injury = Home Lab values = CBC unremarkable, INR elevated 1.38, potassium 3.4 consistent hypokalemia magnesium 1.5 consistent with hypomagnesemia, creatinine elevated 1.3 consistent with chronic renal failure stage G3 B total bilirubin elevated 1.2 consistent with hyperbilirubinemia AST elevated 71 consistent with elevated liver enzymes troponin numbers initial 0.0492 hours later 0.0542 hours later 0.042 all within normal limits however suspicious given the history of coronary artery disease, albumin low at 2.6 consistent with hypoalbuminemia chest x-ray I did review films myself I cannot appreciate any acute process, the official read from radiology is pending EKG demonstrates a sinus rhythm there is no ST elevations or depressions, Plan Pain was able to be controlled with morphine nitro provided no relief she remained pain-free for several hours Toradol provided no relief discussed options with her including transfer to cardiology which she declined would prefer to go home and do watchful waiting prescription written for Percocet 5/325 1 tab p.o. 3 times daily as needed total #10 follow-up with primary care on Sunday This note was dictated using [employer] voice recognition software please call with any questions on syntax or grammar.
[2020-10-09] MEDS: Nitroglycerin 0.4 MG Tab.SL SL PRN ×2 (10:40→11:47)
[2020-10-09] MEDS: Morphine 4 MG/ML Syringe IVPUSH PRN ×2 (12:23→14:10)
[2020-10-09 16:15] VITALS: PULSE 65
[2020-10-09] MEDS ORDERED: Ketorolac 30 MG/ML SDV IVPUSH ONE (16:22)
[2020-10-09 16:40] VITALS: BP 122/77
--- NOTE | 2020-10-11 11:15 | CR ---
CHEST: Portable 10/09/2020 11:03 AM CLINICAL HISTORY:Chest pain COMPARISON:08/22/2020 FINDINGS: The heart size, pulmonary vascularity and hilar structures are normal. No infiltrate effusion or pneumothorax is seen. There is a right subclavian [id number] catheter in place. IMPRESSION: No acute cardiopulmonary process. Diffuse bilateral pulmonary infiltrates seen in August have resolved
== END 2020-10-09 17:21 | disposition home or self-care (01) ==
LOC: JP.ED 10:06
DX: R07.89 Other chest pain (principal); I10 Essential (primary) hypertension; F41.9 Anxiety disorder, unspecified; F32.9 Major depressive disorder, single episode, unspecified; E11.9 Type 2 diabetes mellitus without complications; Z88.6 Allergy status to analgesic agent; Z88.5 Allergy status to narcotic agent; Z91.048 Other nonmedicinal substance allergy status; Z88.2 Allergy status to sulfonamides; Z88.1 Allergy status to other antibiotic agents; Z91.018 Allergy to other foods; Z79.01 Long term (current) use of anticoagulants; Z79.02 Long term (current) use of antithrombotics/antiplatelets; Z79.899 Other long term (current) drug therapy
CPT/HCPCS: 36415; 36556; 71045; 80053; 83735; 84484; 85025; 85610; 85730; 93005; 93010; 96374; 96375; 96376; 99285; A9270; J1642; J1885; J2270

== ENCOUNTER 2020-10-20 06:45 | Emergency (ER) | payer MEDICARE ==
[2020-10-20] MEDS ORDERED: Sodium Chloride 0.9% 10 ML Syringe FLUSH PRN (06:49)
[2020-10-20] MEDS ORDERED: Heparin Sodium 5,000 Units/ML Vial IVPUSH ONE (07:12)
[2020-10-20] MEDS ORDERED: Ticagrelor 90 MG Tab PO ONE (07:12)
[2020-10-20] MEDS ORDERED: LORazepam 2 MG/ML SDV IVPUSH ONE (07:14)
[2020-10-20] MEDS ORDERED: Heparin Sodium/D5W 25,000 UNITS/500 ML BAG IV SCH (07:15)
[2020-10-20] MEDS ORDERED: Morphine 4 MG/ML Syringe IVPUSH PRN (07:19)
--- NOTE | 2020-10-20 07:22 | EDM.PDOC ---
ED HPI GENERAL MEDICAL PROBLEM - General Chief Complaint: Chest Pain Stated Complaint: HEART? Time Seen by Provider: 10/20/20 07:10 Source of Information: Reports: Patient, Old Records, RN Notes Reviewed History Limitations: Reports: No Limitations - History of Present Illness INITIAL COMMENTS - FREE TEXT/NARRATIVE: 60-year-old female presents emergency department a complaint of chest pain, she has known history of coronary artery disease recently had myocardial infarction August 2020, she states she awoke this morning severe chest pain nausea diaphoretic had one bout of emesis. Reported to the emergency department she did take aspirin at home received 2 nitro which did relieve her chest pain from initially an 8 out of 10 down to 3 out of 10 she also describes shortness of breath and is quite anxious. She has not taken her morning medications Treatments CONCRETE MASON: Reports: Aspirin, Nitroglycerin, Other (see below) Other Treatments CONCRETE MASON: 2 baby aspirin and SL nitro chest pain Pain Score (Numeric/FACES): 6 - Related Data Allergies Allergy/AdvReac Type Severity Reaction Status Date / Time acetaminophen Allergy Severe Hives Verified 10/20/20 06:46 [From Darvocet-N 100] codeine Allergy Severe Hives Verified 10/20/20 06:46 iodine Allergy Severe Hives Verified 10/20/20 06:46 propoxyphene napsylate Allergy Severe Hives Verified 10/20/20 06:46 [From Darvocet-N 100] Sulfa (Sulfonamide Allergy Severe Hives Verified 10/20/20 06:46 Antibiotics) sulfamethoxazole Allergy Severe Rash Verified 10/20/20 06:46 [From Bactrim] trimethoprim [From Bactrim] Allergy Severe Rash Verified 10/20/20 06:46 barley Allergy Rash Verified 10/20/20 06:46 tramadol AdvReac Severe Anxiety Verified 10/20/20 06:46 Home Meds: Home Meds Ondansetron [Zofran ODT] 4 mg PO Q6H PRN #7 tab.dis 10/10/18 [Rx] cycloSPORINE [Restasis] 1 drop EYEBOTH BID 02/03/19 [History] Omeprazole 40 mg PO DAILY 02/04/19 [History] Magnesium Oxide 400 mg PO BID #60 tablet 02/11/19 [Rx] Cholecalciferol (Vitamin D3) [Vitamin D3] 2,000 unit PO BID 05/14/19 [History] Potassium Gluconate [Potassium] 1 tab PO BID 08/31/19 [History] Acetaminophen/HYDROcodone [[place] 325-5 MG] 1 - 2 tab PO Q6H PRN 11/15/19 [History] Mirtazapine 1 tab PO BEDTIME 11/15/19 [History] Amylase/Lipase/Protease [[place]quita DR 24,000 Unit] 3 cap PO TIDAC 11/17/19 [History] Clopidogrel [Plavix] 75 mg PO DAILY 10/09/20 [History] Escitalopram Oxalate [Lexapro] 20 mg PO DAILY 10/09/20 [History] Ezetimibe 10 mg PO DAILY 10/09/20 [History] Furosemide [Lasix] 20 mg PO DAILY 10/09/20 [History] Metoprolol Succinate [Toprol Xl] 25 mg PO DAILY 10/09/20 [History] Midodrine 2.5 mg PO TID 10/09/20 [History] Rivaroxaban [Xarelto] 15 mg PO BID 10/09/20 [History] Nitroglycerin [Nitrostat] 0.4 mg SL Q5M PRN 10/20/20 [History] Past Medical History HEENT History: Reports: Impaired Vision Cardiovascular History: Reports: CAD, Heart Failure, Hypertension, NC Respiratory History: Reports: Other (See Below) Other Respiratory History: ARDS in Aug 2019 Gastrointestinal History: Reports: Cholelithiasis, GERD, 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 Genitourinary History: Reports: None [employer] History: Reports: Musculoskeletal History: Reports: None Neurological History: Reports: Concussion Psychiatric History: Reports: Addiction, Anxiety, Depression Other Psychiatric History: Lizeth Lopez Endocrine/Metabolic History: Reports: Diabetes, Type II Hematologic History: Reports: Blood Transfusion(s) Immunologic History: Reports: None Oncologic (Cancer) History: Reports: None - Infectious Disease History Infectious Disease History: Reports: Chicken Pox, Measles, Mumps - Past Surgical History Head Surgeries/Procedures: Reports: None HEENT Surgical History: Reports: Tonsillectomy Cardiovascular Surgical History: Reports: Coronary Artery Stent GI Surgical History: Reports: Appendectomy, Cholecystectomy, EGD, ERCP Female Surgical History: Reports: Section Endocrine Surgical History: Reports: None Musculoskeletal Surgical History: Reports: Arthroscopic Knee, Hip Replacement, Knee Replacement, Shoulder Surgery, Other (See Below) Other Musculoskeletal Surgeries/Procedures:: "rotator cuff surgery" Social & Family History - Family History Family Medical History: No Pertinent Family History HEENT: Reports: None Cardiac: Reports: None Respiratory: Reports: None GI: Reports: 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 : Reports: Pyelonephritis, UTI, Recurrent OBGYN: Reports: None Musculoskeletal: Reports: Arthritis Neurological: Reports: None Psychiatric: Reports: None Endocrine/Metabolic: Reports: Diabetes, type II Hematologic: Reports: None Immunologic: Reports: None Dermatologic: Reports: None Oncologic: Reports: None - Tobacco Use Tobacco Use Status *Q: Former Tobacco User Used Tobacco, but Quit: Yes Month/Year Tobacco Last Used: 2018 - Caffeine Use Caffeine Use: Reports: None - Recreational Drug Use Recreational Drug Use: No - Living Situation & Occupation Living situation: Reports: with Significant Other (lives with Boyfriend in [place], [place].) Occupation: Disabled ED ROS GENERAL - Review of Systems Review Of Systems: See Below Constitutional: Reports: Diaphoresis Respiratory: Reports: Shortness of Breath Cardiovascular: Reports: Chest Pain, Dyspnea on Exertion GI/Abdominal: Reports: Nausea, Vomiting ED EXAM, GENERAL - Physical Exam Exam: See Below Exam Limited By: No Limitations General Appearance: Alert, Mild Distress Respiratory/Chest: No Respiratory Distress, Lungs Clear, Normal Breath Sounds, No Accessory Muscle Use, Chest Non-Tender Cardiovascular: Regular Rate, Rhythm, No Murmur GI/Abdominal: Soft, Non-Tender Course - Vital Signs Last Recorded V/S: Last Vital Signs Temp 95.6 F L 10/20/20 06:45 Pulse 72 10/20/20 06:45 Resp 10 L 10/20/20 06:45 BP 166/85 H 10/20/20 06:45 Pulse Ox 93 L 10/20/20 06:45 - Orders/Labs/Meds Orders: Active Orders 24 hr Category Date Time Status Cardiac Monitoring [RC] STAT Care 10/20/20 07:12 Active Communication Order [RC] Per Unit Routine Care 10/20/20 07:12 Active EKG Documentation Completion [RC] ASDIRECTED Care 10/20/20 06:50 Active Chest 1V Frontal [CR] Stat Exams 10/20/20 06:49 Taken Heparin Sodium/D5W [Heparin 25,000 Units in D5W 500 ML] Med 10/20/20 07:15 Active 25,000 units in 500 ml IV TITRATE Sodium Chloride 0.9% [Saline Flush] Med 10/20/20 06:49 Active 10 ml FLUSH ASDIRECTED PRN Saline Lock Insert [OM.PC] Routine Oth 10/20/20 06:49 Ordered EKG 12 Lead [EK] Routine Ther 10/20/20 06:49 Ordered Medication Orders Heparin Sodium/Dextrose (Heparin 25,000 Units In D5w 500 Ml) 25,000 units in 500 mls @ 16.329 mls/hr IV TITRATE GILLIAN; Protocol Sodium Chloride (Saline Flush) 10 ml FLUSH ASDIRECTED PRN PRN Reason: Keep Vein Open Labs: Laboratory Tests 10/20/20 10/20/20 10/20/20 Range/Units 06:40 06:40 06:49 WBC 5.4 (4.5-11.0) K/uL RBC 3.82 (3.30-5.50) M/uL Hgb 12.3 (12.0-15.0) g/dL Hct 36.9 (36.0-48.0) % MCV 97 (80-98) fL MCH 32 H (27-31) pg MCHC 33 (32-36) % Plt Count 120 L (150-400) K/uL Neut % (Auto) 47 (36-66) % Lymph % (Auto) 40 (24-44) % Mora % (Auto) 9 H (2-6) % Eos % (Auto) 3 (2-4) % Baso % (Auto) 2 H (0-1) % PT 13.9 H (9.5-12.0) sec INR 1.28 H (0.80-1.20) APTT 28.7 (27.0-36.0) sec Sodium 138 L (140-148) mmol/L Potassium 3.2 L (3.6-5.2) mmol/L Chloride 99 L (100-108) mmol/L Carbon Dioxide 24 (21-32) mmol/L Anion Gap 18.2 H (5.0-14.0) mmol/L BUN 17 (7-18) mg/dL Creatinine 1.3 H (0.6-1.0) mg/dL Est Cr Clr Drug Dosing 41.93 mL/min Estimated GFR (MDRD) 42 L (>60) Glucose 170 H (74-106) mg/dL Calcium 9.4 (8.5-10.1) mg/dL Total Bilirubin 1.6 H (0.2-1.0) mg/dL AST 353 H D (15-37) U/L ALT 55 D (12-78) U/L Alkaline Phosphatase 220 H (46-116) U/L Troponin I 0.078 H* (0.000-0.056) ng/mL Total Protein 6.7 (6.4-8.2) g/dL Albumin 2.9 L (3.4-5.0) g/dL Globulin 3.8 H (2.3-3.5) g/dL Albumin/Globulin Ratio 0.8 L (1.2-2.2) Meds: Medications Generic Name Dose Route Start Last Admin Trade Name Freq PRN Reason Stop Dose Admin Heparin Sodium/Dextrose 25,000 units in 500 mls @ 16.329 mls/hr 10/20/20 07:15 Heparin 25,000 Units In D5w 500 Ml IV TITRATE GILLIAN Protocol 12 UNITS/KG/HR Sodium Chloride 10 ml 10/20/20 06:49 Saline Flush FLUSH ASDIRECTED PRN Keep Vein Open Discontinued Medications Generic Name Dose Route Start Last Admin Trade Name Freq PRN Reason Stop Dose Admin Heparin Sodium (Porcine) 4,000 units 10/20/20 07:12 Heparin Sodium IVPUSH 10/20/20 07:13 ONETIME ONE Lorazepam 1 mg 10/20/20 07:14 Ativan IVPUSH 10/20/20 07:15 ONETIME ONE Ticagrelor 180 mg 10/20/20 07:12 Brilinta PO 10/20/20 07:13 ONETIME ONE Departure - Departure Time of Disposition: 07:37 Disposition: DC/Tfer to Acute Hospital 02 Reason for Transfer *Q: Other Condition: Fair Clinical Impression: Acute coronary syndrome Referrals: PCP,None [Primary Care Provider] - Sepsis Event Note (ED) - Evaluation Sepsis Screening Result: No Definite Risk - Focused Exam Vital Signs: Vital Signs Temp Pulse Resp BP Pulse Ox 10/20/20 06:45 95.6 F L 72 10 L 166/85 H 93 L - My Orders Last 24 Hours: My Active Orders 10/20/20 07:12 Cardiac Monitoring [RC] STAT Communication Order [RC] Per Unit Routine 10/20/20 07:15 Heparin Sodium/D5W [Heparin 25,000 Units in D5W 500 ML] 25,000 units in 500 ml IV TITRATE - Assessment/Plan Last 24 Hours: My Active Orders 10/20/20 07:12 Cardiac Monitoring [RC] STAT Communication Order [RC] Per Unit Routine 10/20/20 07:15 Heparin Sodium/D5W [Heparin 25,000 Units in D5W 500 ML] 25,000 units in 500 ml IV TITRATE Plan: Assessment Acuity = acute Site and laterality = non-ST elevation myocardial infarction complicated patient with known history of coronary artery disease Etiology = probable underlying coronary artery disease Manifestations = none Location of injury = Home Lab values = CBC unremarkable potassium low 3.2 consistent hypokalemia creatinine elevated 1.3 consistent chronic renal failure stage G3 B total bilirubin elevated 1.6 consistent with hyperbilirubinemia AST elevated 353 consistent with elevated liver enzymes troponin slightly elevated 0.078, EKG demonstrates sinus rhythm there is no ST elevations or depressions, CRP and sed rate are pending Plan Call discussed the case with Dr. Jim hospitalist [facility] as well as Dr. Tapia at 0 both kindly accepted the patient in transport she will be transported via EMS ground thus far she has received aspirin, 2 doses of nitro, 8 mg of morphine, 180 mg Brilinta, heparin bolus and drip she is not p ain-free at this time This note was dictated using [employer] voice recognition software please call with any questions on syntax or grammar.
[2020-10-20 07:33] VITALS: BP 149/74
[2020-10-20] MEDS ORDERED: Morphine 4 MG/ML Syringe IVPUSH ONE (07:34)
[2020-10-20 07:57] VITALS: PULSE 70
--- NOTE | 2020-10-20 09:42 | CR ---
CHEST: Portable 10/20/2020 at 7:16 AM CLINICAL HISTORY:Chest pain COMPARISON:10/09/2020 FINDINGS: The heart size, pulmonary vascularity and hilar structures are normal. No infiltrate effusion or pneumothorax is seen. There is a right subclavian catheter. Tip is in the superior vena cava. IMPRESSION: No acute cardiopulmonary process.
== END 2020-10-20 08:54 ==
LOC: JP.ED 06:45
DX: I24.9 Acute ischemic heart disease, unspecified (principal); I11.0 Hypertensive heart disease with heart failure; I50.9 Heart failure, unspecified; I25.10 Atherosclerotic heart disease of native coronary artery without angina pectoris; I25.2 Old myocardial infarction; K21.9 Gastro-esophageal reflux disease without esophagitis; F41.9 Anxiety disorder, unspecified; F32.9 Major depressive disorder, single episode, unspecified; E11.9 Type 2 diabetes mellitus without complications; Z87.891 Personal history of nicotine dependence; Z88.6 Allergy status to analgesic agent; Z88.5 Allergy status to narcotic agent; Z88.8 Allergy status to other drugs, medicaments and biological substances; Z88.2 Allergy status to sulfonamides; Z79.899 Other long term (current) drug therapy; Z79.01 Long term (current) use of anticoagulants; Z79.02 Long term (current) use of antithrombotics/antiplatelets; Z20.822 Contact with and (suspected) exposure to COVID-19
CPT/HCPCS: 36415; 71045; 80053; 84484; 85025; 85610; 85651; 85730; 86140; 93005; 93010; 96374; 96375; 99285; A9270; J1644; J2060; J2270; U0002